=== PATIENT | female | born 1950 | race Caucasian/White ===

== ENCOUNTER 2024-05-29 23:20 | Outpatient (REF) | payer MEDICARE, MEDICAID, SELFPAY ==
[2024-05-29 23:39] LABS: Basophils Absolute Auto 0.1 10^3/uL (0.0-0.1); Eosinophils Absolute Auto 0.2 10^3/uL (0.0-0.7); Eosinophils Percent Auto 2.6 % (0.9-7.0); Hematocrit 41.9 % (36.0-48.0); Hemoglobin 12.6 g/dL (12.0-16.0); Immature Granulocytes Abs Auto 0.07 10^3/uL (0.00-0.03); Immature Granulocytes Pct Auto 1.1 % (0.0-0.5); Lymphocytes Absolute Auto 1.4 10^3/uL (1.2-3.8); Lymphocytes Percent Auto 22.3 % (20.5-60.0); Mean Corpuscular HGB Conc 30.1 g/dL (29.9-35.2); Mean Corpuscular Hemoglobin 32.1 pg (26.7-34.0); Mean Corpuscular Volume 106.6 fL (81.0-99.0); Mean Platelet Volume 12.8 fL (9.5-13.5); Monocytes Absolute Auto 0.7 10^3/uL (0.3-0.8); Monocytes Percent Auto 10.7 % (1.7-12.0); Neutrophils Absolute Auto 3.8 10^3/uL (1.4-6.5); Neutrophils Percent Auto 62.3 % (43.0-75.0); Platelet Count 134 10^3/uL (150-450); White Blood Count 6.1 10^3/uL (4.0-11.0)
[2024-05-29 23:54] LABS: Anion Gap 10.8; BUN Creatinine Ratio 7.9; Calcium 8.8 mg/dL (8.5-10.1); Carbon Dioxide 28.3 mmol/L (21.0-32.0); Chloride 103 mmol/L (98-107); Estimated GFR (African America 7 (>=60 mL/min/1.73m^2); Estimated GFR (Non-African Ame 6 (>=60 mL/min/1.73m^2); Glucose 195 mg/dL (74-106); Potassium 4.1 mmol/L (3.5-5.1); Sodium 138 mmol/L (136-145)
[2024-05-30] LABS: Red Blood Count 3.93 10^6/uL (4.20-5.40)
== END 2024-05-29 23:21 | disposition home or self-care (01) ==
LOC: LAB 23:20
PROVIDERS: PCP Family Medicine; Visit Provider Student in an Organized Health Care Education/Training Program
DX: R53.83 Other fatigue (principal); I50.9 Heart failure, unspecified
CPT/HCPCS: 36415; 80048; 83880; 85025

== ENCOUNTER 2025-01-21 05:40 | Outpatient (REF) | payer MEDICARE, MEDICAID, SELFPAY ==
--- OUTSIDE RECORDS SUMMARY | 2025-01-21 05:47 | XMS_ITS | CCD ---
Author Organization [facility] Inform ion Partnership [facility] Care Team Providers Care Certified Nursing Attendant Name Role Phone ITZEL, DR KARIN Farris Attending Unavailable ITZEL, DR KARIN Farris Consulting Unavailable ITZEL, DR KARIN Farris Admitting Unavailable ASHA, DR FAULKNER Primary Care Unavailable MD Jaswinder Lemus Attending Provider 1( [phone] [facility], Services Primary Care Provider MD Debora Griffin Emergency Provider [phone] DO Sung Crocker Emergency Provider DO Tarik Cutler Emergency Provider Unavai Sung Perez Attending Unavailable Sung Crocker Admitting Unavailable [facility] Primary Care Unavaila ble Tarik Cutler Attending Unavailable Tarik Cutler Admitting Unavailable [facility], Services Primary Care Unavaila ble Debora Griffin Attending Unavailable Debora Griffin Admitting Unavailable [facility], Services Primary Care Unavaila ble No Pcp, No Pcp Primary Care Provider Unavailabl e DONA KINCAID Admitting Unavailable DONA KINCAID Attending Unavailable LEONOR TO Referring Unavailable LUCIE BARRY Primary Care Unavailable ARVIND GARCIA Consulting Unavailable JOSEPH PLEITEZ Admitting Unavailable JOSEPH PLEITEZ Attending Unavailable DEBORA GE Referring Unavailab le NO PCP, NO PCP Primary Care Unavailable [place] Consulting Unavailable DION ANTUNEZ Consulting Unavailable Lucie Barry MD Primary Care Provider Manoj LORENZO, Karine Payne Unavailable Lucie Barry MD Primary Care Provider [phone] Lucie Barry MD Primary Care Provider [phone] Gregorio FERNANDEZ Deena Primary Care Provider PHYSICIAN, UNKNOWN Referring Unavailable [facility] Primary Care Unavailable FRAN HWANG Referring Unavailable [facility] Primary Care Unavailable ANGELES GARBERA Referring Unavailable [facility] Primary Care Unavailable YESIKA DUFFY Referring Unavailable NO PCP, NO PCP Primary Care Unavailable ASHA, RUGEN M Referring Unavailable ASHA, RUGEN M Primary Care Unavailable ALONSO ZHU Referring Unavailable ASHA, RUGEN M Primary Care Unavailable NORIS VERGARA Referring Unavailable ANAHEIM, DEENA Primary Care Unavailable COREEN HOUSER Admitting Unavailable OC VERGARAA L Referring Unavailable PERKINS, DEENA Primary Care Unavailable ANGELES GARBERA Attending Unavailable [facility] Consulting Unavailable DEBORA COBB Consulting Unavailable TIFFANIE OROSCO Consulting Unavailable JANI FUNK Consulting Unavailable [facility] ulting Unavailable MASTERSONMIKE Consulting Unavailable ASHA, RUGEN M Referring Unavailable ASHA, RUGEN M Primary Care Unavailable ASHA, RUGEN M Referring Unavailable ASHA, RUGEN M Primary Care Unavailable ASHA, RUGEN M Primary Care Unavailable WILL PEREZ Attending Unavailable WILL PEREZ Attending Unavailable WILL PEREZ Referring Unavailable ASHA, RUGEN M Primary Care Unavailable OC VERGARAA L Attending Unavailable [facility] Primary Care Unavailable [facility] Primary Care Unavailable HUNTER BUCK Attending Unavailable MASTERSON, JACQUES Referring Unavailable [facility] Primary Care Unavailable MASTERSON, JACQUES Referring Unavailable [facility] Primary Care Unavailable MASTERSON, JACQUES Referring Unavailable [facility] Primary Care Unavailable DEBORA GE Attending Unavaila ble NO PCP, NO PCP Primary Care Unavailable OUMEDDOUR, RAZIK Z Attending Unavailable OUMEDDOUR, RAZIK Z Referring Unavailable ASHA, RUGEN M Primary Care Unavailable OUMEDDOUR, RAZIK Z Attending Unavailable OUMEDDOUR, RAZIK Z Referring Unavailable ASHA, RUGEN M Primary Care Unavailable ASHA, RUGEN M Primary Care Unavailable OUMEDDOUR, RAZIK Z Attending Unavailable MSATERSON, JACQUES Referring Unavailable ASHA, RUGEN M Primary Care Unavailable ASHA, RUGEN M Primary Care Unavailable ALONSO ZHU Attending Unavailable Allergies Allergy Classification Reported Allergen(s) Allergy Type Date of Onset Reaction(s) Facility (7 sources) Amoxicillin; Translations: [AMOXICILLIN] Drug Allergy 06-08-2018 Rash [facility] Repository (7 sources) Doxycycline; Translations: [DOXYCYCLINE] Drug Allergy 06-08-2018 Rash [facility] Repository (4 sources) NSAIDS (Non-Steroidal Anti-Inflamma; Translations: [NSAIDS (Non-Steroidal Anti-Inflamma] Allergy to substance 01-14-[address] [facility] (1 source) Amoxicillin Drug Allergy 02-24-2024 [facility]ository (1 source) Doxycycline Drug Allergy 02-24-2024 [facility]ository (7 sources) Amoxicillin Drug Allergy 10-27-2022 [facility] (7 sources) Doxycycline Drug Allergy 10-27-2022 [facility] Medications Current Medications Medication Drug Class(es) Dates Sig (Normalized) Sig (Original) acetaminophen 325 mg oral tablet (13 sources) Start: 08-08-2024 take 1 tablet by mouth every six hours as needed for pain and pain and pain and headache and fever 650 mg, oral, Every 6 hours PRN, mild pain - pain scale 1-3, moderate pain - pain scale 4-6, severe pain - pain scale 7-10, headaches, temperature greater than 38 C, Starting on 08/08/24 at 0019 Start: 04-21-2024 End: 04-23-2024 take 1 tablet by mouth every six hours as needed for pain and headache and fever 500 mg, oral, Every 6 hours PRN, mild pain - pain scale 1-3, headaches, temperature greater than 38 C, Starting on 04/21/24 at 0235, [Warning: Total Acetaminophen not to exceed more than 4 grams (4000 mg) in 24 hours] Start: 09-01-2023 take 1 tablet by alesia th every six hours as needed for headache and fever and pain 650 mg, oral, Every 6 hours PRN, headaches, temperature greater than 38 C, mild pain - pain scale 1-3, Starting on Emilie 09/01/23 at 1516 take 1 tablet by alesia th every four hours as needed for pain acetaminophen (TYLENOL) 500 mg tablet Take 1 tablet (500 mg total) by mouth every 4 (four) hours as needed for pain. Suspended take 1 tablet by alesia th every six hours as needed for pain acetaminophen (TYLENOL) 500 mg tablet Take 1 tablet (500 mg total) by mouth every 6 (six) hours as needed for pain. 0 Active 20 ml albumin human, residential 250 mg/ml injection (1 source) Human Serum Albumin Start: 08-08-2024 25 g, intravenous, Once, On Tue08/08/24 at 1730, For 1 dose, Hemodialysis, Do not exceed 1 mL/minute in patients with normal plasma volume; 2 to 3 mL/minute in patients with hypoproteinemia For BUMINATE, administer using a 15 micron or smaller filter. A filter is NOT required for administration by other brands., Indication: Symptomatic Hypotension During Hemodialysis albuterol 0.83 mg/ml inhalation solution (11 sources) beta2-Adrenerg ic Agonist Start: 09-01-2023 take 2.5 mg by inhalation every four hours as needed for dyspnea and wheezing take 2 puff(s) by in halation every six hours as needed for wheezing albuterol (PROVENTIL HFA;VENTOLIN HFA) 90 mcg/actuation inhaler Inhale 2 puffs every 6 (six) hours as needed for wheezing. Suspended End: 04-23-2024 take 2 puff(s) by inhalation every four hours as needed for wheezing albuterol (PROVENTIL HFA;VENTOLIN HFA) 90 mcg/actuation inhaler Inhale 2 puffs every 4 (four) hours as needed for wheezing or shortness of breath. 04/23/2024 Discontinued (Stop Taking at Discharge) End: 09-01-2023 take 3 mL by inhalation every six hours as needed for wheezing albuterol (ACCUNEB) 0.63 mg/3 mL nebulizer solution Inhale 3 mL (0.63 mg total) by nebulization every 6 (six) hours as needed for wheezing. 09/01/2023 Discontinued (Therapy completed) albuterol 0.833 mg/ml / ipratropium bromide 0.167 mg/ml inhalation solution (1 source) Anticholinergic, beta2-Adrenergic Agonist Start: 08-08-2024 take 3 mL by inhalation every six hours as needed for wheezing and dyspnea B complex-vitamin C-folic acid (DIALYVITE) 100-1 mg per tablet 1 tablet (2 sources) Start: 08-09-2024 take 1 tablet by mouth once daily 1 tablet, oral, Daily, First dose on Tue08/09/24 at 1030 Start: 09-02-2023 take 1 tablet by mouth once da arlene 1 tablet, oral, Daily, First dose on Tue09/02/23 at 0900 calcium carbonate 500 mg chewable tablet (1 source) Start: 08-08-2024 200 mg, oral, 3 times daily PRN, heartburn, indigestion, Starting on Tue08/08/24 at 0019, Ordered as elemental calcium. 200 mg elemental calcium = 500 mg calcium carbonate calcium citrate 1500 mg / cholecalciferol 250 unt oral tablet (3 sources) Vitamin D Start: 06-12-2018 take 1 tablet by mouth twice daily Calcium Citrate-Vitamin D3 (Citracal With Vitamin D Maximum) 315-250 mg-unit tablet Active 1 TAB PO Twice daily 60 June 12, 2018 1:00am 100 ml calcium gluconate 20 mg/ml injection (1 source) Start: 08-08-2024 take 4-4.3 mg intravenously every hour as needed 2,000 mg, intravenous, at 50 mL/hr, Administer over 2 Hours, As needed, ionized calcium 4 to 4.3 mg/dL, Starting on Tue08/08/24 at 0018, IV Administration of calcium via a central or deep vein preferred. Avoid administration in small hand veins VESICANT (RED) calcium gluconate 3,000 mg in sodium chloride 0.9 % 100 mL IVPB (1 source) Start: 08-08-2024 take 3.5-3.9 mg intravenously every hour as needed 3,000 mg, intravenous, at 43.3 mL/hr, Administer over 3 Hours, As needed, ionized calcium 3.5 to 3.9 mg/dL, Starting on Tue08/08/24 at 0018, IV Administration of calcium via a central or deep vein preferred. Avoid administration in small hand veins VESICANT (RED) calcium gluconate 4,000 mg in sodium chloride 0.9 % 250 mL IVPB (1 source) Start: 08-08-2024 take 3.4 mg intravenously every hour as needed 4,000 mg, intravenous, at 72.5 mL/hr, Administer over 4 Hours, As needed, ionized calcium 3.4 mg/dL or less, Starting on Tue08/08/24 at 0018, IV administration of calcium via a central or deep vein is preferred. Avoid administration in small hand veins. VESICANT (RED) 0.5 ml darbepoetin axel 0.2 mg/ml prefilled syringe (1 source) Erythropoies is-stimulati ng Agent Start: 09-02-2023 inject 12 g by subcutaneous injection every week 100 mcg, subcutaneous, Weekly, First dose on Tue09/02/23 at 1430, Do not administer if the patient's hemoglobin is greater than 12 g/dl., Indications: ESRD on Dialysis, anemia, anemia due to renal failure docusate sodium 50 mg / sennosides, residential 8.6 mg oral tablet (10 sources) Start: 08-09-2024 take 2 tablets by mouth once daily 2 tablet, oral, Nightly, First dose on Tue08/09/24 at 2200 Start: 04-21-2024 End: 04-23-2024 take 1 tablet by mouth every twelve hours as needed for constipation 1 tablet, oral, Every 12 hours PRN, constipation, Starting on 04/21/24 at 0235 Start: 09-01-2023 take 1 tablet by alesia th twice daily 1 tablet, oral, 2 times daily, First dose on Tue09/01/23 at 2100 take 1 tablet by alesia th in the morning sennosides-docusate sodium (SENNA WITH DOCUSATE SODIUM) 8.6-50 mg Take 1 tablet by mouth in the morning and 1 tablet before bedtime. Suspended glucagon (rdna) 1 mg injection (2 sources) Antihypoglycemic Agent Start: 08-07-2024 1 mg, i ntramuscular, As needed, low blood sugar, blood glucose less than 70 mg/dL and unconscious or NPO without IV access., Starting on Tue08/07/24 at 2313, If conscious and not NPO, immediately follow with meal tray or high protein (7Grams) snack if tray not available. If NPO, initiate IV 5% Dextrose/Water at 100 mL/hr and contact prescriber for additional orders. If blood glucose is not greater than 70 mg/dL after initial treatment, repeat treatment. Start: 09-01-2023 1 mg, intramus cular, As needed, low blood sugar, blood glucose less than 70 mg/dL and unconscious or NPO without IV access., Starting on Emilie 09/01/23 at 1512, If conscious and not NPO, immediately follow with meal tray or high protein (7Grams) snack if tray not available. If NPO, initiate IV 5% Dextrose/Water at 100 mL/hr and contact prescriber for additional orders. If blood glucose is not greater than 70 mg/dL after initial treatment, repeat treatment. 50 ml glucose 500 mg/ml prefilled syringe (9 sources) Start: 08-07-2024 15 g, oral, As needed, low blood sugar, blood glucose less than 70 mg/dL, Starting on Tue08/07/24 at 2313, If patient conscious and taking PO. If blood glucose is not greater than 70 mg/dL after initial treatment, repeat treatment. Start: 08-07-2024 25 mL, intrave nous, As needed, low blood sugar, blood glucose less than 70 mg/dL and unconscious or NPO with IV access, Starting on Tue08/07/24 at 2313, Push over 1-3 minutes STAT. If conscious and not NPO, immediately follow with meal tray or high protein (7 grams) snack if tray not available. If NPO, initiate 5% dextrose in water at 100 mL/hr and contact prescriber for additional orders. If blood glucose is not greater than 70 mg/dL after initial treatment, repeat treatment. VESICANT (RED) Warning: HYPERTONIC solution. Start: 09-01-2023 take 70 mg intraveno usly every hour 100 mL/hr, intravenous, Continuous PRN, blood glucose less than 70 mg/dL, Starting on Emilie 09/01/23 at 1512, Use immediately following dextrose 50% or glucagon treatment for patients who are unconscious or NPO. Contact prescriber for additional orders. If blood glucose is not greater than 70 mg/dL after initial treatment, repeat treatment. Start: 09-01-2023 15 g, oral, As needed, low blood sugar, blood glucose less than 70 mg/dL, Starting on Emilie 09/01/23 at 1512, If patient conscious and taking PO. If blood glucose is not greater than 70 mg/dL after initial treatment, repeat treatment. Start: 09-01-2023 25 mL, intrave nous, As needed, low blood sugar, blood glucose less than 70 mg/dL and unconscious or NPO with IV access, Starting on Emilie 09/01/23 at 1512, Push over 1-3 minutes STAT. If conscious and not NPO, immediately follow with meal tray or high protein (7 grams) snack if tray not available. If NPO, initiate 5% dextrose in water at 100 mL/hr and contact prescriber for additional orders. If blood glucose is not greater than 70 mg/dL after initial treatment, repeat treatment. VESICANT (RED) Warning: HYPERTONIC solution. End: 09-01-2023 take 37.5 mL by mouth once dextrose 40 % gel Take 37.5 mL (15 g total) by mouth once. 09/01/2023 Discontinued (Therapy completed) 1 ml hydrALAZINE hydrochloride 20 mg/ml injection (2 sources) Arteriolar Vasodilator Start: 08-08-2024 take 10 mg intravenously every six hours as needed 10 mg, intravenous, Every 6 hours PRN, high blood pressure, Starting on 08/08/24 at 0453, For systolic blood pressure greater than 160 mmHg Look-alike/sound-alike medication - verify indication for use. Administer IV doses as a slow IV push; maximum rate: 5 mg/minute. Start: 04-21-2024 End: 04-23-2024 take 10 mg intravenously every four hours as needed 10 mg, intravenous, Every 4 hours PRN, high blood pressure, SBP > 180, Starting on 04/21/24 at 1717, Look-alike/sound-alike medication - verify indication for use. Administer IV doses as a slow IV push; maximum rate: 5 mg/minute. 3 ml insulin aspart, human 100 unt/ml pen injector (2 sources) Insulin Analog Start: 06-12-2018 Insulin Aspart U-100 (Novolog Flexpen U-) 100 unit/mL insulin pen Active 1 UNIT SUBCUT .tidac June 12, 2018 1:00am sliding scale no 2 Insulin Glargine (Lantus U-100 Insulin) 100 unit/mL Solution (2 sources) Start: 02-24-2024 inject 12 [IU] by subcutaneous injection once daily in the morning Insulin Glargine (Lantus U-100 Insulin) 100 unit/mL Solution Active 12 UNIT SUBCUT Every morning February 24, 2024 12:00am Start: 06-12-2018 End: 02-24-2024 inject 60 [IU] by subcutaneous injection once daily in the morning Insulin Glargine (Lantus U-100 Insulin) 100 unit/mL Solution Discontinued 60 UNIT SUBCUT Every morning 0 June 12, 2018 11:38am February 24, 2024 2:56pm 3 ml insulin lispro 100 unt/ml pen injector (6 sources) Insulin Analog Start: 08-09-2024 inject 400 mg by subcutaneous injection once daily, then inject 2 [IU] by subcutaneous injection 15 minutes after mealtime 1-4 Units, subcutaneous, Nightly, First dose on [facility] 08/09/24 at 2200, Bedtime hyperglycemia dosing. For blood glucose 201-250 mg/dL, give 1 unit. For blood glucose 251-300 mg/dL, give 2 units. For blood glucose 301-350 mg/dL, give 3 units. For blood glucose 351-400 mg/dL, give 4 units. Give even if NPO or meals skipped. Do NOT give more often than every 4 hours when NPO. Notify prescriber if blood glucose greater than 400 mg/dL. Look-alike/sound-alike medication - verify indication for use. Prime with 2 units of insulin prior to administration. Prandial/supplemental Insulin. Pre-filled pens stable 28 days at room temperature. Insulin lispro should be administered within 15 minutes before or immediately after a meal. Start: 08-09-2024 inject 400 mg by sub cutaneous injection three times daily at mealtime, then inject 2 [IU] by subcutaneous injection 15 minutes after mealtime 1-5 Units, subcutaneous, 3 times daily with meals, First dose on [facility] 08/09/24 at 1200, Daytime hyperglycemia dosing. For blood glucose 151-200 mg/dL, give 1 unit. For blood glucose 201-250 mg/dL, give 2 units. For blood glucose 251-300 mg/dL, give 3 units. For blood glucose 301-350 mg/dL, give 4 units. For blood glucose 351-400 mg/dL, give 5 units. Give even if NPO or meals skipped. Do NOT give more often than every 4 hours when NPO. Notify prescriber if blood glucose greater than 400 mg/dL. Look-alike/sound-alike medication - verify indication for use. Prime with 2 units of insulin prior to administration. Prandial/supplemental Insulin. Pre-filled pens stable 28 days at room temperature. Insulin lispro should be administered within 15 minutes before or immediately after a meal. Start: 04-21-2024 End: 04-23-2024 inject 400 mg by subcutaneous injection once daily, then inject 2 [IU] by subcutaneous injection 15 minutes after mealtime 2-8 Units, subcutaneous, Nightly, First dose on 04/21/24 at 2200, Bedtime hyperglycemia dosing. For blood glucose 201-250 mg/dL, give 2 units. For blood glucose 251-300 mg/dL, give 4 units. For blood glucose 301-350 mg/dL, give 6 units. For blood glucose 351-400 mg/dL, give 8 units. Give even if NPO or meals skipped. Do NOT give more often then every 4 hours when NPO. Notify prescriber if blood glucose greater than 400 mg/dL. Look-alike/sound-alike medication - verify indication for use. Prime with 2 units of insulin prior to administration. Prandial/supplemental Insulin. Pre-filled pens stable 28 days at room temperature. Insulin lispro should be administered within 15 minutes before or immediately after a meal. Start: 04-21-2024 End: 04-23-2024 inject 400 mg by subcutaneous injection three times daily at mealtime, then inject 2 [IU] by subcutaneous injection 15 minutes after mealtime 2-10 Units, subcutaneous, 3 times daily with meals, First dose on 04/21/24 at 0800, Daytime hyperglycemia dosing. For blood glucose 151-200 mg/dL, give 2 units. For blood glucose 201-250 mg/dL, give 4 units. For blood glucose 251-300 mg/dL, give 6 units. For blood glucose 301-350 mg/dL, give 8 units. For blood glucose 351-400 mg/dL, give 10 units. Give even if NPO or meals skipped. Do NOT give more often then every 4 hours when NPO. Notify prescriber if blood glucose greater than 400 mg/dL. Look-alike/sound-alike medication - verify indication for use. Prime with 2 units of insulin prior to administration. Prandial/supplemental Insulin. Pre-filled pens stable 28 days at room temperature. Insulin lispro should be administered within 15 minutes before or immediately after a meal. Start: 09-01-2023 inject 400 mg by sub cutaneous injection once daily, then inject 2 [IU] by subcutaneous injection 15 minutes after mealtime 2-8 Units, subcutaneous, Nightly, First dose on Emilie 09/01/23 at 2200, Bedtime hyperglycemia dosing. For blood glucose 201-250 mg/dL, give 2 units. For blood glucose 251-300 mg/dL, give 4 units. For blood glucose 301-350 mg/dL, give 6 units. For blood glucose 351-400 mg/dL, give 8 units. Give even if NPO or meals skipped. Do NOT give more often then every 4 hours when NPO. Notify prescriber if blood glucose greater than 400 mg/dL. Look-alike/sound-alike medication - verify indication for use. Prime with 2 units of insulin prior to administration. Prandial/supplemental Insulin. Pre-filled pens stable 28 days at room temperature. Insulin lispro should be administered within 15 minutes before or immediately after a meal. Start: 09-01-2023 inject 400 mg by sub cutaneous injection three times daily at mealtime, then inject 2 [IU] by subcutaneous injection 15 minutes after mealtime 2-10 Units, subcutaneous, 3 times daily with meals, First dose on Emilie 09/01/23 at 1700, Daytime hyperglycemia dosing. For blood glucose 151-200 mg/dL, give 2 units. For blood glucose 201-250 mg/dL, give 4 units. For blood glucose 251-300 mg/dL, give 6 units. For blood glucose 301-350 mg/dL, give 8 units. For blood glucose 351-400 mg/dL, give 10 units. Give even if NPO or meals skipped. Do NOT give more often then every 4 hours when NPO. Notify prescriber if blood glucose greater than 400 mg/dL. Look-alike/sound-alike medication - verify indication for use. Prime with 2 units of insulin prior to administration. Prandial/supplemental Insulin. Pre-filled pens stable 28 days at room temperature. Insulin lispro should be administered within 15 minutes before or immediately after a meal. levothyroxine sodium 0.2 mg oral tablet (18 sources) l-Thyroxine Start: 04-24-2024 200 mcg, oral, Daily, First dose on Tue08/08/24 at 0600, Look-alike/sound-alike medication. Verify indication for use Administer on empty stomach at least ONE hour before or TWO hours after food Enteral Feeding: For 7 days or less of tube feeding- do NOT hold tube feedings, after 7 days- hold tube feedings ONE hour before and ONE hour after administration DOES NOT APPLY TO NEONATES Monitor thyroid function tests weekly Start: 04-23-2024 End: 04-23-2024 200 mcg, oral, Daily, First dose (after last modification) on Tue04/23/24 at 0600, Look-alike/sound-alike medication. Verify indication for use Administer on empty stomach at least ONE hour before or TWO hours after food Enteral Feeding: For 7 days or less of tube feeding- do NOT hold tube feedings, after 7 days- hold tube feedings ONE hour before and ONE hour after administration DOES NOT APPLY TO NEONATES Monitor thyroid function tests weekly Start: 04-21-2024 End: 04-22-2024 188 mcg, oral, Daily, First dose on Tue04/21/24 at 0600, Look-alike/sound-alike medication. Verify indication for use Administer on empty stomach at least ONE hour before or TWO hours after food Enteral Feeding: For 7 days or less of tube feeding- do NOT hold tube feedings, after 7 days- hold tube feedings ONE hour before and ONE hour after administration DOES NOT APPLY TO NEONATES Monitor thyroid function tests weekly Start: 09-02-2023 188 mcg, oral, Daily, First dose on Tue09/02/23 at 0600, Look-alike/sound-alike medication. Verify indication for use Administer on empty stomach at least ONE hour before or TWO hours after food Enteral Feeding: For 7 days or less of tube feeding- do NOT hold tube feedings, after 7 days- hold tube feedings ONE hour before and ONE hour after administration DOES NOT APPLY TO NEONATES Monitor thyroid function tests weekly Start: 06-08-2018 take 200 ug by mouth once daily in the morning Levothyroxine Active 200 MCG PO Every morning June 08, 2018 1:00am End: 04-23-2024 take 188 ug by mouth in the morning levothyroxine sodium (LEVOTHYROXINE ORAL ) Take 188 mcg by mouth in the morning. 04/23/2024 Discontinued (Stop Taking at Discharge) take 188 ug by mouth in the morning levothyroxine sodium (LEVOTHYROXINE ORAL ) Take 188 mcg by mouth in the morning. Suspended take 188 ug by mouth in the morning levothyroxine sodium (LEVOTHYROXINE ORAL ) Take 188 mcg by mouth in the morning. levothyroxine (S YNTHROID, LEVOTHROID) 125 MCG tablet Take 150 mcg by mouth in the morning. 0 Active 50 ml magnesium sulfate 40 mg/ml injection (2 sources) Start: 08-08-2024 2,000 mg, intr avenous, at 25 mL/hr, Administer over 120 Minutes, As needed, Magnesium level 1.7 to 1.9 mg/dL, or Ionized Magnesium level 0.45 to 0.5 mmol/L., Starting on Tue08/08/24 at 0017, Recheck magnesium level 4 hours after infusion complete. With each magnesium result continue the replacement orders as needed. Start: 08-08-2024 4,000 mg, intr avenous, at 25 mL/hr, Administer over 240 Minutes, As needed, Magnesium level 1.6 mg/dL or less, or Ionized Magnesium level 0.44 mmol/L or less, Starting on Tue08/08/24 at 0017, Recheck magnesium level 4 hours after infusion complete. With each magnesium result continue the replacement orders as needed. melatonin 5 mg oral tablet (1 source) Start: 08-08-2024 take 5 mg by mouth once daily as needed for sleep 5 mg, oral, Nightly PRN, sleep, Starting on Tue08/08/24 at 0019 midodrine hydrochloride 10 mg oral tablet (13 sources) alpha-Adrenergi c Agonist Start: 02-24-2024 take 10 mg by mouth once daily Midodrine Active 10 MG PO Daily February 24, 2024 12:00am Start: 09-02-2023 End: 09-02-2023 take 5 mg by mouth once 5 mg, oral, Once, On 09/01 at 1115, For 1 dose, During hemodialysis Look-alike/sound-alike medication - verify indication for use. Start: 09-02-2023 End: 04-23-2024 take 5 mg by mouth once daily 5 mg, oral, User Specified (Once per day on Tuesday), First dose (after last modification) on Tue09/03/23 at 0900, Hemodialysis, Take once on HD days Hold for SBP >110 Look-alike/sound-alike medication - verify indication for use. take 2 tablets by [facility] once daily in the morning midodrine (PROAMATINE) 10 mg tablet Take 2 tablets (20 mg total) by mouth every morning. Tuesday, Tuesday, Tuesday for hypotension with dialysis. Suspended midodrine (PROAM ATINE) 5 mg tablet Take 1 tablet (5 mg total) by mouth. One tablet, one time daily, on days , , and Tue. Hold if SMP is greater than 110 0 Active nystatin 100 unt/mg topical powder (1 source) Polyene Antifungal Start: 08-08-2024 1 Application, topic al, 2 times daily, First dose on Tue08/08/24 at 0915, Apply to underneath left breast. Look-alike/sound-alike medication - verify indication for use. pantoprazole 40 mg delayed release oral tablet (3 sources) Proton Pump Inhibitor Start: 08-10-2024 40 mg, oral, Every m orning before breakfast, First dose on Tue08/10/24 at 0815, Look-alike/sound-alike medication - verify indication for use. If patient is receiving enteral feeding, consider alternative PPI or continue IV pantoprazole until the delayed-release tablet can be taken orally, Indication: Acute Upper GI Bleed/Positive Stool Occult Blood Start: 08-07-2024 End: 08-10-2024 take 40 mg intravenously every twelve hours 40 mg, intravenous, Every 12 hours, First dose on Tue08/07/24 at 2345, Look-alike/sound-alike medication - verify indication for use., Indication: Upper GI bleed Start: 09-02-2023 40 mg, oral, E very morning before breakfast, First dose on Tue09/02/23 at 0700, Look-alike/sound-alike medication - verify indication for use. If patient is receiving enteral feeding, consider alternative PPI or continue IV pantoprazole until the delayed-release tablet can be taken orally, Indication: GERD Potassium Chloride (1 source) Start: 08-08-2024 potassium chloride (K-TAB,KLOR-CON) CR tablet 20-40 mEq prochlorperazine 5 mg/ml injectable solution (2 sources) Phenothiazine Start: 08-10-2024 take 5 mg intravenously every six hours as needed for nausea and vomiting 5 mg, intravenous, Every 6 hours PRN, nausea, vomiting, Starting on Tue08/10/24 at 1037, When administered via IV Push, do not exceed 5 mg per minute Start: 04-21-2024 End: 04-23-2024 take 1 tablet by mouth every six hours as needed for nausea and vomiting prochlorperazine (COMPAZINE) tablet 5 mg sertraline 100 mg oral tablet (12 sources) Serotonin Reuptake Inhibitor Start: 08-09-2024 take 100 mg by mouth once daily 100 mg, oral, Daily, First dose on Tue08/09/24 at 1015, Look-alike/sound-alike medication - verify indication for use. Start: 02-24-2024 take 200 mg by mouth once josh y Sertraline Active 200 MG PO Daily February 24, 2024 12:00am take 2 tablets by mo [facility] in the morning sertraline (ZOLOFT) 100 mg tablet Take 2 tablets (200 mg total) by mouth in the morning. Suspended 125 ml sodium chloride 9 mg/ ml prefilled syringe (15 sources) Start: 08-07-2024 3 mL, intraven ous, Every 12 hours scheduled, First dose on Tue08/07/24 at 2315 Start: 08-07-2024 3 mL, intraven ous, As needed, line care, before and after each intermittent use, Starting on Tue08/07/24 at 2313 Start: 08-07-2024 take 25 mL intraveno usly every hour as needed 25 mL, intravenous, at 100 mL/hr, Administer over 15 Minutes, As needed, line care, line care after IVPB administration, Starting on Tue08/07/24 at 2313 Start: 04-21-2024 End: 04-23-2024 3 mL, intravenous, Every 12 hours scheduled, First dose on Tue04/21/24 at 0245 Start: 04-21-2024 End: 04-23-2024 3 mL, intravenous, As needed , line care, before and after each intermittent use, Starting on Tue04/21/24 at 0235 Start: 09-02-2023 End: 09-02-2023 300 mL, intravenous, at 1,20 0 mL/hr, Administer over 15 Minutes, Once in dialysis, On Tue09/02/23 at 0830, For 1 dose, Hemodialysis, as priming solution for hemodialysis tubing. Start: 09-01-2023 3 mL, intraven ous, Every 12 hours scheduled, First dose on Emilie 09/01/23 at 2100 Start: 09-01-2023 3 mL, intraven ous, As needed, line care, before and after each intermittent use, Starting on Tue09/01/23 at 1512 Start: 09-01-2023 End: 09-03-2023 take 20 mL intravenously every hour as needed 20 mL/hr, intravenous, Continuous PRN, per policy for blood product transfusion, Starting on Tue09/02/23 at 2222, For 24 hours, Initiate prior to blood product transfusion. Continue before and after each blood product transfusion. Discontinue upon completion of blood product transfusion(s). Start: 09-01-2023 take 25 mL intraveno usly every hour as needed 25 mL, intravenous, at 100 mL/hr, Administer over 15 Minutes, As needed, line care, line care after IVPB administration, Starting on Emilie 09/01/23 at 1512 End: 09-01-2023 take 2 spray(s) nasal route twice daily sodium chloride (OCEAN) 0.65 % nasal spray Administer 2 sprays into each nostril 2 (two) times a day. 09/01/2023 Discontinued (Therapy completed) sucroferric oxyhydroxide 500 mg chewable tablet (1 source) Start: 02-24-2024 take 1 tablet by mouth three times daily Sucroferric Oxyhydroxide (Velphoro) 500 mg tablet,chewable Active 500 MG PO Three times daily February 24, 2024 12:00am Tenapanor (1 source) Start: 02-24-2024 take 1 tablet by mouth once daily Tenapanor (Xphozah) 20 mg tablet Active 20 MG PO Daily February 24, 2024 12:00am Completed/Discontinued Medications Medication Drug Class(es) Dates Sig (Normalized) Sig (Original) amLODIPine 10 mg oral tablet (10 sources) Dihydropyridine Calcium Channel Coleman Start: 06-08-2018 End: 02-24-2024 take 10 mg by mouth once daily Amlodipine Discontinued 10 MG PO Daily June 08, 2018 1:00am February 24, 2024 2:55pm [facility] 1 [facility] amLOD[facility]ine (NORVASC) 5 mg tablet Take 1 tablet (5 mg total) by mouth in the morning. Suspended aspirin 81 mg delayed release oral tablet (4 sources) Platelet Aggregation Inhibitor, Nonsteroidal Anti-inflammatory Drug Start: 04-23-2024 take 1 tablet by mouth in the morning aspirin 81 mg Take 1 tablet (81 mg total) by mouth in the morning. 30 tablet 04/23/2024 Suspended atorvastatin 40 mg oral tablet (17 sources) HMG-CoA Reductase Inhibitor Start: 04-21-2024 End: 04-23-2024 take 80 mg by mouth once daily 80 mg, oral, Daily, First dose on 04/21/24 at 0900, Look-alike/soun d-alike medication - verify indication for use. Start: 02-24-2024 take 80 mg by mouth once daily Atorvastatin Active 80 MG PO Daily February 24, 2024 12:00am Start: 09-02-2023 take 80 mg by mouth once daily 80 mg, oral, Daily, First dose on Tue09/02/23 at 0900, Look-alike/sound-alike medication - verify indication for use. Start: 10-25-2022 End: 09-01-2023 take 0.5 tablet by mouth in the morning atorvastatin (LIPITOR) 80 mg tablet Take 0.5 tablets (40 mg total) by mouth in the morning. 10/25/2022 09/01/2023 Discontinued (Duplicate Listing) take 2 tablets by [facility] in the morning atorvastatin (LIPITOR) 40 mg tablet Take 2 tablets (80 mg total) by mouth in the morning. Suspended bisacodyl 10 mg rectal suppository (4 sources) Stimulant Laxative End: 09-01-2023 bisacodyL (DULCOLAX) 10 mg suppository Insert 1 suppository (10 mg total) into the rectum as needed for constipation. 09/01/2023 Discontinued (Therapy completed) bumetanide 1 mg oral tablet (15 sources) Loop Diuretic Start: 04-21-2024 End: 04-23-2024 take 0.5 mg by mouth once daily 0.5 mg, oral, Daily, First dose on 04/21/24 at 0900 Start: 09-03-2023 take 1 tablet by alesia once daily bumetanide (BUMEX) 0.5 mg tablet Take 1 tablet (0.5 mg total) by mouth daily. 30 tablet 09/03/2023 Suspended Start: 09-02-2023 take 0.5 mg by mouth once josh y 0.5 mg, oral, Daily, First dose on Tue09/02/23 at 0900 Start: 07-18-2019 take 2 tablets by mo [facility] twice daily bumetanide (BUMEX) 0.5 mg tablet Take 2 tablets (1 mg total) by mouth 2 (two) times a day. 07/18/2019 Suspended carvedilol 6.25 mg oral tablet (19 sources) alpha-Adrenergic Coleman, beta-Adrenergic Coleman Start: 04-22-2024 End: 04-23-2024 take 1 tablet by mouth once daily at bedtime carvediloL (COREG) 6.25 mg tablet Take 1 tablet (6.25 mg total) by mouth once daily at bedtime. 60 tablet 04/23/2024 Start: 10-15-2022 End: 04-23-2024 take 3.125 mg by mouth at bedtime 3.125 mg, oral, Bedtime, First dose on Tue09/01/23 at 2200, Give with meal or snack. Look-alike/sound-alike medication - verify indication for use. End: 09-01-2023 take 1 tablet by mouth twice daily at mealtime carvediloL (COREG) 6.25 mg tablet Take 6.25 mg by mouth 2 (two) times a day with meals. 09/01/2023 Discontinued (Duplicate Listing) cetirizine hydrochloride 10 mg oral tablet (7 sources) Histamine-1 Receptor Antagonist take 1 tablet by mouth in the morning cetirizine (ZyrTEC) 10 mg tablet Take 1 tablet (10 mg total) by mouth in the morning. Suspended cyclobenzaprine hydrochloride 5 mg oral tablet (4 sources) Muscle Relaxant End: take 2 tablets by mouth three times daily as needed for muscle spasms cyclobenzaprine (FLEXERIL) 5 mg tablet Take 2 tablets (10 mg total) by mouth 3 (three) times a day as needed for muscle spasms. 09/01/2023 Discontinued (Therapy completed) docusate sodium 100 mg oral capsule (12 sources) Start: End: take 100 mg by mouth twice daily 100 mg, oral, 2 times daily, First dose on 04/21/24 at 0900, Look-alike/sound-alike medication - verify indication for use. dulaglutide (TRULICITY) 3 mg/0.5 mL pen injector (2 sources) dulaglutide (TRULICITY) 3 mg/0.5 mL pen injector Indications: type 2 diabetes mellitus Inject 0.5 mL under the skin once a week Indications: type 2 diabetes mellitus. Every Tuesday Suspended dulaglutide (BETH LICITY) 3 mg/0.5 mL pen injector Indications: type 2 diabetes mellitus Inject 0.5 mL under the skin once a week Indications: type 2 diabetes mellitus. Every Tuesday ergocalciferol 1.25 mg oral capsule (10 sources) Provitamin D2 Compound take 1 capsule by mouth in the morning, then take 1 capsule by mouth once daily ergocalciferol (DRISDOL) 1,250 mcg (50,000 unit) capsule Take 1 capsule (50,000 Units total) by mouth in the morning. Give 1 capsule by mouth one time daily starting on the and ending on the every month.. Suspended 14 actuat fluticasone furoate 0.1 mg/actuat / vilanterol 0.025 mg/actuat dry powder inhaler (2 sources) Corticosteroid, beta2-Adrenergic Agonist take 1 puff(s) by inhalation in the morning fluticasone furoate-vilanteroL (BREO ELLIPTA) 100-25 mcg/dose blister with device Indications: bronchospasm prevention with COPD Inhale 1 puff in the morning. Indications: bronchospasm prevention with COPD. Suspended 12 hr guaiFENesin 600 mg extended release oral tablet (9 sources) Start: End: take 1 tablet by mouth every twelve hours as needed Start: 09-01-2023 take 1 tablet by alesia th every twelve hours as needed take 1 tablet by alesia th every twelve hours as needed guaiFENesin (MUCINEX) 600 mg tablet extended release 12hr Take 1 tablet (600 mg total) by mouth every 12 (twelve) hours as needed (congestion). Suspended 1 ml heparin sodium, porcine 5000 unt/ml injection (1 source) Unfractionated Heparin, Anti-coagulant Start: 04-22-2024 End: 04-23-2024 5,000 Units, subcutaneous, Every 8 hours scheduled, First dose on 04/22/24 at 0600, Notify prescriber if INR greater than 1.9, hemoglobin less than 10 mg/dL, aPTT greater than 40 seconds, and/or platelet count less than 100,000/mm Look-alike/sound-alike medication - verify indication for use. Observe for bleeding. hydroCHLOROthiazide 25 mg / lisinopril 20 mg oral tablet (3 sources) Thiazide Diuretic, Angiotensin Converting Enzyme Inhibitor Start: 06-08-2018 End: 06-12-2018 take 1 tablet by mouth once daily Lisinopril-Hydrochloroth iazide Discontinued 1 TAB PO Daily June 08, 2018 1:00am June 12, 2018 11:35am Insulin Aspart U-100 (Novolog Flexpen U-) 100 unit/mL insulin pen (1 source) Start: 06-12-2018 End: 02-24-2024 Insulin Aspart U-100 (Novolog Flexpen U-) 100 unit/mL insulin pen Discontinued 1 UNIT SUBCUT .tidac June 12, 2018 1:00am February 24, 2024 2:55pm sliding scale no 2 3 ml insulin glargine 100 unt/ml pen injector (14 sources) Insulin Analog Start: 04-21-2024 End: 04-23-2024 12 Units, subcutaneous, Daily, First dose on 04/21/24 at 0900, Look-alike/sound-alike medication - verify indication for use. Prime with 2 units of insulin prior to administration. Basal (long acting) insulin for subcutaneous administration only. Do not mix with any other insulin. Pre-filled pens stable 28 days at room temperature. Start: 06-26-2023 LANTUS SOLOSTA R U-100 INSULIN 100 unit/mL (3 mL) insulin pen Inject 12 Units under the skin in the morning. 06/26/2023 Suspended Start: 06-12-2018 inject 60 [IU] by reardon bcutaneous injection once daily in the morning Insulin Glargine (Lantus U-100 Insulin) 100 unit/mL Solution Active 60 UNIT SUBCUT Every morning 0 June 12, 2018 11:38am Start: 06-08-2018 End: 06-12-2018 inject 40 [IU] by subcutaneous injection twice daily Insulin Glargine (Lantus U-100 Insulin) 100 unit/mL Solution Discontinued 40 UNIT SUBCUT Twice daily June 08, 2018 1:00am June 12, 2018 11:38am insulin glargine-yfgn 100 unit/mL solution (4 sources) Start: 07-26-2022 End: 09-01-2023 insulin glargine-yfgn 100 unit/mL solution Inject 12 Units under the skin in the morning. 07/26/2022 09/01/2023 Discontinued (Duplicate Listing) Start: 07-26-2022 insulin glargi ne-yfgn 100 unit/mL solution Inject 12 Units under the skin in the morning. 0 07/26/2022 Active ipratropium/albuterol sulfat e (IPRATROPIUM-ALBUTEROL INHL) (4 sources) End: 09-01-2023 ipratropium/albuterol sulfat e (IPRATROPIUM-ALBUTEROL INHL) Inhale as needed. 09/01/2023 Discontinued (Therapy completed) ipratropium/albu terol sulfate (IPRATROPIUM-ALBUTEROL INHL) Inhale as needed. 0 Active 24 hr isosorbide mononitrate 30 mg extended release oral tablet (13 sources) Nitrate Vasodilator Start: 07-19-2019 End: 04-23-2024 take 1 tablet by mouth once daily isosorbide mononitrate (IMDUR) 30 mg 24 hr tablet Take 1 tablet (30 mg total) by mouth daily. 07/19/2019 Suspended levoFLOXacin 250 mg oral tablet (3 sources) Quinolone Antimicrobial Start: 06-12-2018 End: 02-24-2024 take 250 mg by mouth once daily Levofloxacin Discontinued 250 MG PO Daily June 12, 2018 1:00am February 24, 2024 2:55pm lisinopril 20 mg oral tablet (3 sources) Angiotensin Converting Enzyme Inhibitor Start: 06-12-2018 End: 02-24-2024 take 20 mg by mouth once daily Lisinopril Discontinued 20 MG PO Daily June 12, 2018 1:00am February 24, 2024 2:55pm loperamide hydrochloride 2 mg oral tablet (4 sources) Opioid Agonist End: 09-01-2023 take 1 tablet by mouth four times daily as needed for diarrhea loperamide (IMODIUM A-D) 2 mg tablet Take 1 tablet (2 mg total) by mouth 4 (four) times a day as needed for diarrhea. 09/01/2023 Discontinued (Therapy completed) loratadine 10 mg oral tablet (5 sources) Start: 04-21-2024 End: 04-23-2024 take 10 mg by mouth once daily 10 mg, oral, Daily, First dose on 04/21/24 at 0900, Look-alike/sound- alike medication - verify indication for use. End: 09-01-2023 loratadine (CLARITIN) 10 mg tablet Take 1 tablet (10 mg total) by mouth as needed. 09/01/2023 Discontinued (Therapy completed) losartan potassium 100 mg oral tablet (13 sources) Angiotensin 2 Receptor Colemna Start: 04-24-2024 take 1 tablet by mouth in the morning losartan (COZAAR) 100 mg tablet Take 1 tablet (100 mg total) by mouth in the morning. 30 tablet 04/24/2024 Suspended Start: 04-22-2024 End: 04-23-2024 take 100 mg by mouth once daily 100 mg, oral, Daily, First dose (after last modification) on 04/22/24 at 0900, Look-alike/sound-alike medication - verify indication for use. Start: 10-07-2022 End: 04-23-2024 take 50 mg by mouth once daily 50 mg, oral, Daily, First dose on 04/21/24 at 0900, Look-alike/sound-alike medication - verify indication for use. magnesium hydroxide 80 mg/ml oral suspension (2 sources) take 30 mL by mouth once daily as needed for constipation magnesium hydroxide 400 mg/5 mL suspension Take 30 mL by mouth nightly as needed (constipation). Suspended Multivitamin With Iron-Mineral (3 sources) Start: 06-12-2018 End: 02-24-2024 take 1 tablet by mouth once daily Multivitamin With Iron-Mineral Discontinued 1 TAB PO Daily June 12, 2018 1:00am February 24, 2024 2:55pm Start: 06-12-2018 take 1 tablet by alesia th once daily Multivitamin With Iron-Mineral Active 1 TAB PO Daily June 12, 2018 1:00am 2 ml ondansetron 2 mg/ml injection (7 sources) Serotonin-3 Receptor Antagonist Start: 08-09-2024 End: 08-10-2024 4 mg, intravenous, Once, On Tue08/10/24 at 1445, For 1 dose, Hemodialysis, Administer over 2-5 minutes. Start: 09-01-2023 take 1 tablet by alesia th every six hours as needed for nausea and vomiting 4 mg, oral, Every 6 hours PRN, nausea, vomiting, Starting on Emilie 09/01/23 at 1516, For 1 dose End: 09-01-2023 take 1 tablet by mouth every eight hours as needed for nausea and vomiting ondansetron (ZOFRAN) 4 mg tablet Take 1 tablet (4 mg total) by mouth every 8 (eight) hours as needed for nausea or vomiting. 09/01/2023 Discontinued (Therapy completed) perflutren lipid microspheres (DEFINITY) dilution injection 1.43 mg/10 mL (1 source) Start: 04-23-2024 End: 04-23-2024 2 mL, intravenous, Once in imaging, contrast, Starting on 04/23/24 at 0805, For 1 dose, Dilute 1.3 mL of Definity with 8.7 mL 0.9% NaCl in 10 mL syringe. Administer 2 mL perflutren (Definity) contrast if 2 contiguous segments of the LV are not well visualized. May repeat 2 mL dose until LV visualization is accomplished. Procedure total dose not to exceed 10 mL. polyethylene glycol 3350 42923 mg powder for oral solution (12 sources) Osmotic Laxative Start: 09-02-2023 End: 04-23-2024 17 g, oral, Daily, First dose on Tue04/21/24 at 0900, Look-alike/sound-al hilda medication - verify indication for use. Dissolve 1 packet (17 gm) in 8 ounces of water, juice, soda, coffee or tea. sevelamer carbonate 800 mg oral tablet (14 sources) Phosphate Binder Start: 08-08-2024 End: 08-09-2024 take 1 tablet by mouth twice daily at mealtime 800 mg, oral, 2 times daily with meals, First dose on Tue08/08/24 at 0800, Look-alike/sound-al hilda medication - verify indication for use Give with meals Administer other medications 1 hour before or 3 hours after Enteral Feeding: Lanthanum and sevelamer TABLETS are not recommended to be crushed and administered in feeding tube due to risk of clogging tube Alternative: sevelamer carbonate suspension/packets or calcium carbonate per tube Start: 02-24-2024 take 2400 mg by mout h three times daily Sevelamer Carbonate Active 2400 MG PO Three times daily February 24, 2024 12:00am Start: 09-01-2023 End: 04-23-2024 take 1 tablet by mouth twice daily at mealtime 800 mg, oral, 2 times daily with meals, First dose on 04/21/24 at 0800, Look-alike/sound-alike medication - verify indication for use Give with meals Administer other medications 1 hour before or 3 hours after Enteral Feeding: Lanthanum and sevelamer TABLETS are not recommended to be crushed and administered in feeding tube due to risk of clogging tube Alternative: sevelamer carbonate suspension/packets or calcium carbonate per tube simvastatin 20 mg oral tablet (3 sources) HMG-CoA Reductase Inhibitor Start: 06-08-2018 End: 02-24-2024 take 20 mg by mouth once daily at bedtime Simvastatin Discontinued 20 MG PO Daily at bedtime June 08, 2018 1:00am February 24, 2024 2:53pm SITagliptin 50 mg oral tablet (4 sources) Dipeptidyl Peptidase 4 Inhibitor End: 09-01-2023 take 1 tablet by mouth once daily SITagliptin (JANUVIA) 50 mg tablet Take 50 mg by mouth daily. 09/01/2023 Discontinued (Therapy completed) tenapanor (XPHOZAH) 20 mg tablet (2 sources) tenapanor (XPHOZ AH) 20 mg tablet Take by mouth. Suspended tenapanor (XPHOZ AH) 20 mg tablet Take by mouth. vitamin B vnzfkn-K-AI-zinc c it (DIALYVITE 800 WITH ZINC 15) 0.8-15 mg tablet (7 sources) take 1 tablet by mouth once daily in the morning vitamin B cdusgs-V-KF-zinc cit (DIALYVITE 800 WITH ZINC 15) 0.8-15 mg tablet Take 1 tablet by mouth every morning. Active take 1 tablet by alesia th once daily in the morning vitamin B zkvxjy-E-UG-zinc cit (DIALYVIT E 800 WITH ZINC 15) 0.8-15 mg tablet Take 1 tablet by mouth every morning. Suspended take 1 tablet by alesia th once daily in the morning vitamin B qoplws-K-FP-zinc cit (DIALYVIT E 800 WITH ZINC 15) 0.8-15 mg tablet Take 1 tablet by mouth every morning. Problems Active Problems Problem Classification Problem Date Documented Da te Episodic/Chronic Cardiac dysrhythmias (1 source) Cardiac arrhythmia, unspecified; Translations: [Cardiac arrhythmia, unspecified] Onset: 5 Chronic Cardiac dysrhythmias (1 source) Bradycardia, unspecified; Translations: [Bradycardia, unspecified] Onset: 5 Episodic Chronic kidney disease (20 sources) Chronic kidney disease, stage 4 (severe); Translations: [Chronic renal failure] Onset: 2 01-14-2024 Chronic Conditions associated with dizziness or vertigo (1 source) Dizziness Onset: 5 Episodic Congestive heart failure; nonhypertensive (8 sources) Chronic diastolic (congestive) heart failure; Translations: [Heart failure] Onset: 0 08-29-2020 Chronic Deficiency and other anemia (2 sources) Iron deficiency anemia secondary to blood loss (chronic); Translations: [IRON DEFIC ANEMIA SEC BLD LOSS CHRN] Onset: 2 Chronic Deficiency and other anemia (9 sources) Anemia of chronic disease; Translations: [Anemia in other chronic diseases classified elsewhere] Onset: 3 09-01-2023 Chronic Deficiency and other anemia (2 sources) Anemia, unspecified; Translations: [Anemia, unspecified] Onset: 4 Episodic Diabetes mellitus with complications (5 sources) Type 2 diabetes mellitus with hypoglycemia without coma; Translations: [Type 2 diabetes mellitus with diabetic chronic kidney disease] Onset: 2 Chronic Diabetes mellitus without complication (6 sources) Type 2 diabetes mellitus; Translations: [Type 2 diabetes mellitus without complications] Onset: 4 04-21-2024 Chronic Essential hypertension (9 sources) Essential hypertension; Translations: [Essential (primary) hypertension] Onset: 1 04-21-2024 Chronic Gastrointestinal hemorrhage (5 sources) Gastrointestinal hemorrhage; Translations: [Gastrointestinal hemorrhage, unspecified] Onset: 5 08-07-2024 Episodic Hypertension with complications and secondary hypertension (1 source) Hypertensive heart and chronic kidney disease with heart failure and stage 1 through stage 4 chronic kidney disease, or unspecified chronic kidney disease; Translations: [HTN HRT CKD W/HF STAGE 1-4/UNS CKD] Onset: 2 Chronic Nonspecific chest pain (9 sources) Chest pain; Translations: [Chest pain, unspecified] Onset: 4 01-14-2024 Episodic Other aftercare (1 source) Other group home (current) drug therapy; Translations: [OTH LONGTERM CURRENT DRUG THERAPY] Onset: 2 Episodic Other aftercare (1 source) jail (current) use of insulin; Translations: [CST CURRENT USE OF INSULIN] Onset: 2 Episodic Other endocrine disorders (7 sources) Hypoglycemia; Translations: [Hypoglycemia, unspecified] Onset: 2 03-01-2022 Chronic Other nutritional; endocrine; and metabolic disorders (8 sources) Severe obesity; Translations: [Class 3 severe obesity due to excess calories in adult] Onset: 1 04-21-2024 Chronic Other screening for suspected conditions (not mental disorders or infectious disease) (1 source) Other specified abnormal findings of blood chemistry; Translations: [Other specified abnormal findings of blood chemistry] Onset: 5 Episodic Residual codes; unclassified (1 source) Illness, unspecified; Translations: [Illness, unspecified] Onset: 5 Episodic Respiratory failure; insufficiency; arrest (adult) (1 source) Chronic respiratory failure with hypoxia; Translations: [CHRONIC RESPIRATORY FAIL W/HYPOXIA] Onset: 2 Chronic Skin and subcutaneous tissue infections (3 sources) Cellulitis of lower limb; Translations: [Cellulitis of unspecified part of limb] 06-09-2018 Episodic Substance-related disorders (1 source) Nicotine dependence, cigarettes, uncomplicated; Translations: [NICOTINE DEPEND CIGARETTES UNCOMP] Onset: 2 Chronic Thyroid disorders (10 sources) Hypothyroidism; Translations: [Hypothyroidism, unspecified] Onset: 2 04-21-2024 Chronic Unclassified (1 source) EMS Onset: 4 Unclassified (1 source) Abnormal Lab Onset: 4 Viral infection (1 source) COVID-19; Translations: [COVID-19] Onset: 2 Past or Other Problems Problem Classification Problem Date Documented Da te Episodic/Chronic Abdominal pain (1 source) Abdominal pain Onset: 12-06-2023 Episodic Acute and unspecified renal failure (8 sources) Acute kidney failure, unspecified; Translations: [Acute renal failure syndrome] Onset: 03-01-2022 03-01-2022 Episodic Deficiency and other anemia (6 sources) Anemia; Translations: [Anemia, unspecified] Onset: 09-01-2023 09-01-2023 Episodic Deficiency and other anemia (1 source) Other iron deficiency anemias; Translations: [Other iron deficiency anemias] Onset: 09-01-2023 Episodic Deficiency and other anemia (1 source) Iron deficiency anemia; Translations: [Other iron deficiency anemias] 09-03-2023 Episodic Fluid and electrolyte disorders (5 sources) Hyperkalemia; Translations: [Hyperkalemia] Onset: 09-01-2023 01-14-2024 Episodic Mood disorders (4 sources) Mood disorders Onset: 09-01-2023 Resolved: 04-21-2024 04-21-2024 Other gastrointestinal disorders (1 source) Constipation, unspecified; Translations: [Constipation, unspecified] Onset: 12-06-2023 Episodic Other gastrointestinal disorders (1 source) Constipation Onset: 12-06-2023 Episodic Other lower respiratory disease (2 sources) Shortness of breath; Translations: [Shortness of breath] Onset: 01-12-2024 Episodic Syncope (9 sources) Syncope; Translations: [Syncope and collapse] Onset: 02-24-2024 02-24-2024 Episodic Viral infection (7 sources) Disease caused by 2019-nCoV; Translations: [COVID-19] Onset: 03-01-2022 03-01-2022 Episodic Results Test Name Value Interpretation Reference Range Facility BLOOD UREA NITROGENon 2024 Urea nitrogen [Mass/Vol] 10 mg/dL Normal 5-27 [facility] Comment on above: Performed By: #### H H #### [facility] ([id number]) [address] [facility], [place] [address] Urea nitrogen [Mass/Vol] 37 mg/dL High 09-25 [facility] Comment on above: Performed By: #### H H #### [facility] ([id number]) [address] [facility], [place] [address] ALBUMINon 08-22-2024 Albumin [Mass/Vol] 3.5 g/dL Normal 3.2-5.3 [facility] Comment on above: Performed By: #### C BCA, FEPR, 2275-08, 2283-12, 2132-01 #### [facility] ([id number]) [address], [address] [place] [address] BLOOD UREA NITROGENon 2024 Urea nitrogen [Mass/Vol] 11 mg/dL Normal 09-25 [facility] Comment on above: Performed By: #### C BCA, FEPR, 2275-08, 2283-12, 2132-01 #### [facility] ([id number]) [address], [address] [place] [address] CALCIUMon 08-22-2024 Calcium [Mass/Vol] 8.2 mg/dL Low 8.5-10.5 [facility] Comment on above: Performed By: #### C BCA, FEPR, 4, 2283-12, 2132-01 #### [facility] ([id number]) [address], [address] [place] [address] POTASSIUMon 08-22-2024 Potassium [Moles/Vol] 3.0 mmol/L Low 3.5-5.0 [facility] Comment on above: Performed By: #### C BCA, FEPR, 2275-4, 2283-12, 2132-01 #### [facility] ([id number]) [address], [address] [place] [address] CBC AND AUTO DIFFon 08-16-19 25 ABSOLUTE BASOPHIL 0.1 X10E9/L Normal 0.0-0.2 [facility] Comment on above: Performed By: #### H H #### [facility] ([id number]) [address] [place] [address]666 ABSOLUTE NEUTROPHIL 4.5 X10E9/L Normal 1.5-6.6 [facility] Comment on above: Performed By: #### H H #### [facility] ([id number]) [address] [place] [address] 71393 Basophils/100 WBC (Bld) 1.0 % Normal [facility] Comment on above: Performed By: #### H H #### [facility] ([id number]) [address] [place] [address] 84272 Eosinophils (Bld) [#/Vol] 0.2 10*3/uL Normal 0.0-0.4 [facility] Comment on above: Performed By: #### H H #### [facility] ([id number]) [address] [place] [address] 14841 Eosinophils/100 WBC (Bld) 2.8 % Normal [facility] Comment on above: Performed By: #### H H #### [facility] ([id number]) [address] [place] [address] 63563 Erythrocyte distribution width (RBC) [Ratio] 22.4 % High 11.5-15.0 [facility] Comment on above: Performed By: #### H H #### [facility] ([id number]) [address] [place] [address] 36928 Hematocrit (Bld) [Volume fraction] 16.3 % Low 35-47 [facility] Comment on above: Performed By: #### H H #### [facility] ([id number]) [address] [place] [address] 68379 Hemoglobin (Bld) [Mass/Vol] 5.5 g/dL Critically low 11.7-15.5 [facility] Comment on above: Performed By: #### H H #### [facility] ([id number]) [address] [place] [address] 64856 Lymphocytes (Bld) [#/Vol] 1.1 10*3/uL Normal 1.0-3.5 [facility] Comment on above: Performed By: #### H H #### [facility] ([id number]) [address] [place] [address] 65099 Lymphocytes/100 WBC (Bld) 17.3 % Normal [facility] Comment on above: Performed By: #### H H #### [facility] ([id number]) [address] [place] [address] 44477 MCH (RBC) [Entitic mass] 33.8 pg Normal 27-34 [facility] Comment on above: Performed By: #### H H #### [facility] ([id number]) [address] [place] [address] 69754 MCHC (RBC) [Mass/Vol] 33.8 g/dL Normal 32-36 [facility] Comment on above: Performed By: #### H H #### [facility] ([id number]) [address] [place] [address] 57258 MCV (RBC) [Entitic vol] 100 fL Normal 80-100 [facility] Comment on above: Performed By: #### H H #### [facility] ([id number]) [address] [place] [address] 75902 Monocytes (Bld) [#/Vol] 0.3 10*3/uL Normal 0-0.9 [facility] Comment on above: Performed By: #### H H #### [facility] ([id number]) [address] [place] [address] 21659 Monocytes/100 WBC (Bld) 5.1 % Normal [facility] Comment on above: Performed By: #### H H #### [facility] ([id number]) [address] [place] [address] 35767 Neutrophils/100 WBC (Bld) 73.8 % Normal [facility] Comment on above: Performed By: #### H H #### [facility] ([id number]) [address] [place] [address] 58333 Platelet mean volume (Bld) [Entitic vol] 8.9 fL Normal 7-12 [facility] Comment on above: Performed By: #### H H #### [facility] ([id number]) [address] [place] [address] 06852 Platelets (Bld) [#/Vol] 142 10*3/uL Low 150-450 [facility] Comment on above: Performed By: #### H H #### [facility] ([id number]) [address] [place] [address] 42952 RBC COUNT 1.63 X10E12/L Low 3.80-5.20 [facility] Comment on above: Performed By: #### H H #### [facility] ([id number]) [address] [place] [address] 07408 WBC (Bld) [#/Vol] 6.1 10*3/uL Normal 4.0-11.0 [facility] Comment on above: Performed By: #### H H #### [facility] ([id number]) [address] [place] [address] 11455 COMPREHENSIVE METABOLIC PANE Juventino 08-15-2024 Albumin [Mass/Vol] 2.9 g/dL Low 3.2-5.3 [facility] Comment on above: Performed By: #### H H #### [facility] ([id number]) [address] [place] [address] 20020 ALP [Catalytic activity/Vol] 70 U/L Normal 39-130 [facility] Comment on above: Performed By: #### H H #### [facility] ([id number]) [address] [place] [address] 91919 ALT [Catalytic activity/Vol] 12 U/L Normal 0-31 [facility] Comment on above: Performed By: #### H H #### [facility] ([id number]) [address] [place] [address] 42716 Anion gap [Moles/Vol] 10 mmol/L Normal 5-15 [facility] Comment on above: Performed By: #### H H #### [facility] ([id number]) [address] [place] [address] 03089 AST [Catalytic activity/Vol] 13 U/L Normal 0-41 [facility] Comment on above: Performed By: #### H H #### [facility] ([id number]) [address] [place] [address] 61482 Bilirubin [Mass/Vol] 0.1 mg/dL Low 0.3-1.2 [facility] Comment on above: Performed By: #### H H #### [facility] ([id number]) [address] [place] [address] [place] [address] Calcium [Mass/Vol] 8.3 mg/dL Low 8.5-10.5 [facility] Comment on above: Performed By: #### H H #### [facility] ([id number]) [address] [place] [address] 13066 Chloride [Moles/Vol] 100 mmol/L Normal 98-109 [facility] Comment on above: Performed By: #### H H #### [facility] ([id number]) [address] [place] [address] 06477 CO2 [Moles/Vol] 26 mmol/L Normal 22-32 [facility] Comment on above: Performed By: #### H H #### [facility] ([id number]) [address] [place] [address] 97486 Creatinine [Mass/Vol] 2.52 mg/dL High 0.40-1.00 [facility] Comment on above: Result Comment: METH OD TRACEABLE TO IDMS STANDARD Performed By: #### H H #### [facility] ([id number]) [address] [place] [address] 20685 GFR/1.73 sq M.predicted among non-blacks MDRD (S/P/Bld) [Vol rate/Area] 20 mL/min/{1.73_m2} Low >59 [facility] Comment on above: Result Comment: Reported eGFR is based on the CKD-EPI 2021 equation that does not use a race coefficient. Performed By: #### H H #### [facility] ([id number]) [address] [place] [address] 00896 Glucose [Mass/Vol] 164 mg/dL High 65-99 [facility] Comment on above: Performed By: #### H H #### [facility] ([id number]) [address] [place] [address] 10792 Potassium [Moles/Vol] 3.9 mmol/L Normal 3.5-5.0 [facility] Comment on above: Performed By: #### H H #### [facility] ([id number]) [address] [place] [address] 40294 Protein [Mass/Vol] 5.8 g/dL Low 6.0-8.0 [facility] Comment on above: Performed By: #### H H #### [facility] ([id number]) [address] [place] [address] 40810 Sodium [Moles/Vol] 136 mmol/L Normal 134-146 [facility] Comment on above: Performed By: #### H H #### [facility] ([id number]) [address] [place] [address] 24444 Urea nitrogen [Mass/Vol] 29 mg/dL High 5-27 [facility] Comment on above: Performed By: #### H H #### [facility] ([id number]) [address] [place] [address] 46219 HEMOGLOBINon 08-15-2024 Hemoglobin (Bld) [Mass/Vol] 5.2 g/dL Critically low 11.7-15.5 [facility] Comment on above: Performed By: #### H H #### [facility] ([id number]) [address] [place] [address] 27979 HGBon 08-15-2024 Hematocrit (Bld) [Volume fraction] 23.5 % Low 35-47 [facility] Comment on above: Performed By: #### H H #### [facility] ([id number]) [address] [place] [address] 93189 Hemoglobin (Bld) [Mass/Vol] 8.2 g/dL Low 11.7-15.5 [facility] Comment on above: Performed By: #### H H #### [facility] ([id number]) [address] [place] [address] 66274 Lactate (P zandra) [Moles/Vol]o n 08-15-2024 LACTATE W/REFLEX 1.2 mmol/L Normal 0.4-2.0 [facility] Comment on above: Result Comment: Result did not trigger repeat Lactate, re-order if needed. Performed By: #### H H #### [facility] ([id number]) [address] [place] [address] 60479 MAGNESIUMon 08-15-2024 Magnesium [Mass/Vol] 1.7 mg/dL Low 1.8-2.6 [facility] Comment on above: Performed By: #### H H #### [facility] ([id number]) [address] [place] [address] 01177 Troponin I.cardiac High sens itivity method [Mass/Vol]on 08-15-2024 1 HOUR TROP I, HIGH SENSITIVITY 40 ng/L High <16 [facility] Comment on above: Result Comment: Elevations of hs-Troponin may be due to causes other than myocardial ischemia. Recommend serial hs-Troponin testing be performed. For the initial evaluation and management of chest pain patients, refer to the algorithms linked below. Emergency Patient: [email or web address] Inpatient: [email or web address] Performed By: #### H H #### [facility] ([id number]) [address] [place] [address] 63066 TROPONIN I, HIGH SENSITIVITY 39 ng/L High <16 [facility] Comment on above: Result Comment: Elevations of hs-Troponin may be due to causes other than myocardial ischemia. Recommend serial hs-Troponin testing be performed. For the initial evaluation and management of chest pain patients, refer to the algorithms linked below. Emergency Patient: [email or web address] Inpatient: [email or web address] Performed By: #### H H #### [facility] ([id number]) [address] [place] [address] 45168 XR CHEST 1 VWon 08-15-2024 XR CHEST 1 VW XR CHEST 1 VW Single view chest XR CHEST 1 VW History: hypotension Comparison: August 06, 2024 Impression: * Modest left basilar consolidation could be atelectasis or pneumonia exacerbated by poor inspiration. Follow-up frontal and lateral chest x-ray recommended. Finalized by Elias Nunn MD on 08/15/2024 2:32 PM Normal [facility] BASIC METABOLIC PANLon 08-10 Anion gap [Moles/Vol] 10 mmol/L Normal 5-15 [facility] Comment on above: Performed By: #### C BCA, FEPR, 6-4, 2283-8, 2132-01 #### [facility] ([id number]) [address], [address] [place] [address] Calcium [Mass/Vol] 8.5 mg/dL Normal 8.5-10.5 [facility] Comment on above: Performed By: #### C BCA, FEPR, 2275-4, 2283-8, 2132-01 #### [facility] ([id number]) [address], [address] [place] [address] Chloride [Moles/Vol] 99 mmol/L Normal 98-109 [facility] Comment on above: Performed By: #### C BCA, FEPR, 2275-4, 2283-8, 2132-01 #### [facility] ([id number]) [address], [address] [place] [address] CO2 [Moles/Vol] 26 mmol/L Normal 22-32 [facility] Comment on above: Performed By: #### C BCA, FEPR, 6-4, 2283-8, 2132-01 #### [facility] ([id number]) [address], [address] [place] [address] Creatinine [Mass/Vol] 4.91 mg/dL High 0.40-1.00 [facility] Comment on above: Result Comment: METH OD TRACEABLE TO IDMS STANDARD Performed By: #### C BCA, FEPR, 2275-4, 2283-12, 2132-01 #### [facility] ([id number]) [address], [facility] [address] [place] [address] GFR/1.73 sq M.predicted among non-blacks MDRD (S/P/Bld) [Vol rate/Area] 9 mL/min/{1.73_m2} Low >59 [facility] Comment on above: Result Comment: Reported eGFR is based on the CKD-EPI 2020 equation that does not use a race coefficient. Performed By: #### C BCA, FEPR, 2275-, 2283-12, 2132-01 #### [facility] ([id number]) [address], [address] [place] [address] Glucose [Mass/Vol] 106 mg/dL High 65-99 [facility] Comment on above: Performed By: #### C BCA, FEPR, 2275-, 2283-12, 2132-01 #### [facility] ([id number]) [address], [address] [place] [address] Potassium [Moles/Vol] 5.1 mmol/L High 3.5-5.0 [facility] Comment on above: Performed By: #### C BCA, FEPR, 2275-4, 2283-12, 2132-01 #### [facility] ([id number]) [address], [address] [place] [address] Sodium [Moles/Vol] 135 mmol/L Normal 134-146 [facility] Comment on above: Performed By: #### C BCA, FEPR, 2275-, 2283-12, 2132-01 #### [facility] ([id number]) [address], [address] [place] [address] Urea nitrogen [Mass/Vol] 58 mg/dL High 5-27 [facility] Comment on above: Performed By: #### C BCA, FEPR, 4, 2283-12, 2132-01 #### [facility] ([id number]) [address] [facility], [address] [place] [address] Basic Metabolic Panelon 07-31 Anion gap [Moles/Vol] 10 mmol/L 5 - 15 mmol/L [facility] Calcium [Mass/Vol] 8.5 mg/dL 8.5 - 10. 5 mg/dL [facility] Chloride [Moles/Vol] 99 mmol/L 98 - 10 9 mmol/L [facility] CO2 [Moles/Vol] 26 mmol/L 22 - 32 mmol/L [facility] Creatinine [Mass/Vol] 4.91 mg/dL High 0.40 - 1.00 mg/dL [facility] Comment on above: METHOD TRACEABLE TO [facility] STANDARD eGFR (CKD-EPI)non-race dependent 9 Low - PINF [facility] Comment on above: Reported eGFR is based on the CKD-EPI 2020 equation that does not use a race coefficient. Glucose [Mass/Vol] 106 mg/dL High 65 - 99 mg/dL [facility] Interpretation and review of laboratory results Abnormal [facility] Potassium [Moles/Vol] 5.1 mmol/L High 3.5 - 5.0 mmol/L [facility] Sodium [Moles/Vol] 135 mmol/L 134 - 146 mmol/L [facility] Urea nitrogen [Mass/Vol] 58 mg/dL High 5 - 27 mg/dL [facility] CBC AND AUTO DIFFon 08-11-19 25 ABSOLUTE BASOPHIL 0.1 X10E9/L Normal 0.0-0.2 [facility] Comment on above: Performed By: #### C ANGELLA, FEPR, 4, 2283-12, 2132-01 #### [facility] ([id number]) [address] [facility] [place] [address] Anisocytosis Ql (Bld) 2+ Abnormal NONE [facility] Comment on above: Performed By: #### C BCA, FEPR, 2275-08, 2283-12, 2132-01 #### [facility] ([id number]) [address], [address] [place] [address] Basophils/100 WBC (Bld) 2.0 % Normal [facility] Comment on above: Performed By: #### C BCA, FEPR, 2275-08, 2283-12, 2132-01 #### [facility] ([id number]) [address], [address] [place] [address] Eosinophils (Bld) [#/Vol] 0.2 10*3/uL Normal 0.0-0.4 [facility] Comment on above: Performed By: #### C BCA, FEPR, 2275-08, 2283-12, 2132-01 #### [facility] ([id number]) [address], [address] [place] [address] Eosinophils/100 WBC (Bld) 3.0 % Normal [facility] Comment on above: Performed By: #### C BCA, FEPR, 2275-08, 2283-12, 2132-01 #### [facility] ([id number]) [address], [address] [place] [address] Erythrocyte distribution width (RBC) [Ratio] 23.5 % High 11.5-15.0 [facility] Comment on above: Performed By: #### C BCA, FEPR, 2275-08, 2283-12, 2132-01 #### [facility] ([id number]) [address], [address] [place] [address] Hematocrit (Bld) [Volume fraction] 22.0 % Low 35-47 [facility] Comment on above: Performed By: #### C BCA, FEPR, 2275-08, 2283-12, 2132-01 #### [facility] ([id number]) [address], [address] [place] [address] Hemoglobin (Bld) [Mass/Vol] 7.3 g/dL Low 11.7-15.5 [facility] Comment on above: Performed By: #### C BCA, FEPR, 2275-08, 2283-12, 2132-01 #### [facility] ([id number]) [address], [address] [place] [address] Lymphocytes (Bld) [#/Vol] 1.0 10*3/uL Normal 1.0-3.5 [facility] Comment on above: Performed By: #### C BCA, FEPR, 2275-08, 2283-12, 2132-01 #### [facility] ([id number]) [address] [place] [address] Lymphocytes/100 WBC (Bld) 18.0 % Normal [facility] Comment on above: Performed By: #### C BCA, FEPR, 2275-08, 2283-12, 2132-01 #### [facility] ([id number]) [address] [place] [address] MCH (RBC) [Entitic mass] 32.6 pg Normal 27-34 [facility] Comment on above: Performed By: #### C BCA, FEPR, 2275-08, 2283-12, 2132-01 #### [facility] ([id number]) [address], [address] [place] [address] MCHC (RBC) [Mass/Vol] 33.0 g/dL Normal 32-36 [facility] Comment on above: Performed By: #### C BCA, FEPR, 2275-08, 2283-12, 2132-01 #### [facility] ([id number]) [address], [address] [place] [address] MCV (RBC) [Entitic vol] 99 fL Normal 80-100 [facility] Comment on above: Performed By: #### C BCA, FEPR, 2275-08, 2283-12, 2132-01 #### [facility] ([id number]) [address], [address] [place] [address] Monocytes (Bld) [#/Vol] 0.3 10*3/uL Normal 0-0.9 [facility] Comment on above: Performed By: #### C BCA, FEPR, 2275-08, 2283-12, 2132-01 #### [facility] ([id number]) [address], [address] [place] [address] Monocytes/100 WBC (Bld) 6.0 % Normal [facility] Comment on above: Performed By: #### C BCA, FEPR, 2275-08, 2283-12, 2132-01 #### [facility] ([id number]) [address], [address] [place] [address] Neutrophils (Bld) [#/Vol] 3.8 10*3/uL Normal 1.5-6.6 [facility] Comment on above: Performed By: #### C BCA, FEPR, 2275-08, 2283-12, 2132-01 #### [facility] ([id number]) [address], [address] [place] [address] OVALOCYTE 1+ Abnormal NONE [facility] Comment on above: Performed By: #### C BCA, FEPR, 2275-08, 2283-12, 2132-01 #### [facility] ([id number]) [address], [address] [place] [address] Platelet mean volume (Bld) [Entitic vol] 9.5 fL Normal 7-12 [facility] Comment on above: Performed By: #### C BCA, FEPR, 2275-08, 2283-12, 2132-01 #### [facility] ([id number]) [address], [address] [place] [address] Platelets (Bld) [#/Vol] 118 10*3/uL Low 150-450 [facility] Comment on above: Performed By: #### C BCA, FEPR, 2275-4, 8, 2132-01 #### [facility] ([id number]) [address], [address] [place] [address] POLYCHROMASIA 1+ Abnormal NONE [facility] Comment on above: Performed By: #### C BCA, FEPR, 2275-4, 2283-12, 2132-01 #### [facility] ([id number]) [address], [address] [place] [address] RBC COUNT 2.23 X10E12/L Low 3.80-5.20 [facility] Comment on above: Performed By: #### C BCA, FEPR, 2275-4, 2283-12, 2132-01 #### [facility] ([id number]) [address], [address] [place] [address] SEG NEUTROPHIL 71.0 % Normal [facility] Comment on above: Performed By: #### C BCA, FEPR, 2275-, 2283-12, 2132-01 #### [facility] ([id number]) [address], [address] [place] [address] TEARDROP 1+ Abnormal NONE [facility] Comment on above: Performed By: #### C BCA, FEPR, 2275-4, 2283-12, 2132-01 #### [facility] ([id number]) [address], [address] [place] [address] WBC (Bld) [#/Vol] 5.4 10*3/uL Normal 4.0-11.0 [facility] Comment on above: Performed By: #### C BCA, FEPR, 2275-4, 2283-8, 2132-01 #### [facility] ([id number]) [address], [address] [place] [address] CBC auto differentialon 04- Anisocytosis Ql (Bld) 2+ Abnormal NONE^NONE [facility] Basophils (Bld) [#/Vol] 0.1 10*3/uL [facility] Basophils/100 WBC (Bld) 2 % [facility] Dacrocytes LM Ql (Bld) 1+ Abnormal NONE^NONE [facility] Eosinophils (Bld) [#/Vol] 0.2 10*3/uL [facility] Eosinophils/100 WBC (Bld) 3 % [facility] Erythrocyte distribution width (RBC) [Ratio] 23.5 % High 11.5 - 15.0 % [facility] Hematocrit (Bld) [Volume fraction] 22 % Low 35 - 47 % [facility] Hemoglobin (Bld) [Mass/Vol] 7.3 g/dL Low 11.7 - 15.5 g/dL [facility] Interpretation and review of laboratory results Abnormal [facility] Lymphocytes (Bld) [#/Vol] 1 10*3/uL [facility] Lymphocytes/100 WBC (Bld) 18 % [facility] MCH (RBC) [Entitic mass] 32.6 pg 27 - 34 pg [facility] MCHC (RBC) [Mass/Vol] 33 g/dL 32 - 3 6 g/dL [facility] MCV (RBC) [Entitic vol] 99 fL 80 - 100 fL [facility] Monocytes (Bld) [#/Vol] 0.3 10*3/uL [facility] Monocytes/100 WBC (Bld) 6 % [facility] Neutrophils (Bld) [#/Vol] 3.8 10*3/uL [facility] Ovalocytes LM Ql (Bld) 1+ Abnormal NONE^NONE [facility] Platelet mean volume (Bld) [Entitic vol] 9.5 fL 7 - 12 fL [facility] Platelets (Bld) [#/Vol] 118 10*3/uL Low [facility] Polychromasia LM Ql (Bld) 1+ Abnormal NONE^NONE [facility] RBC (Bld) [#/Vol] 2.23 10*6/uL Low [facility] Segmented neutrophils/100 WBC (Bld) 71 % [facility] WBC corrected for nucl RBC Auto (Bld) [#/Vol] 5.4 [facility] ECG 12 leadon 08-10-2024 TRACEMASTERVUE [facility] Glucose Glucometer (BldC) [M ass/Vol]on 08-10-2024 Glucose [Mass/Vol] 128 mg/dL High 65-99 [facility] Interpretation and review of laboratory results Abnormal [facility] Glucose [Mass/Vol] 146 mg/dL High 65 - 99 mg/dL [facility] Interpretation and review of laboratory results Abnormal [facility] Glucose [Mass/Vol] 146 mg/dL High 65-99 [facility] Glucose [Mass/Vol] 114 mg/dL High 65 - 99 mg/dL [facility] Interpretation and review of laboratory results Abnormal [facility] Glucose [Mass/Vol] 114 mg/dL High 65-99 [facility] Hemodialysis inpatienton Марина Medina RN 08/10/2024 4:31 PM Pt dialyzed for 3.5 hours today and had a net fluid removal of 1.0kg Pre wt 106.6kg Post 105.6kg One dose of albumin given for blood pressure support One dose of zofran given for nausea Access functioned well at ordered 350 pump speed [facility] MAGNESIUMon 08-10-2024 Magnesium [Mass/Vol] 1.9 mg/dL Normal 1.8-2.6 [facility] Comment on above: Performed By: #### C BCA, FEPR, 2276-4, 2284-8, 2132-9 #### [facility] ([id number]) [address] [facility] [address], [address] [place] [address] Magnesiumon 08-10-2024 Magnesium [Mass/Vol] 1.9 mg/dL 1.8 - 2 .6 mg/dL [facility] No Panel Informationon 08-10 [facility] PHOSPHORUSon 08-10-2024 Phosphate [Mass/Vol] 4.6 mg/dL Normal 2.4-4.9 [facility] Comment on above: Performed By: #### C BCA, FEPR, 6-4, 2283-8, 2132-01 #### [facility] ([id number]) [address], [address] [place] [address] Parathyrin.intact [Mass/Vol] on 08-10-2024 Interpretation and review of laboratory results Abnormal [facility] PTH INTACT 290 pg/mL High 12-88 [facility] Comment on above: Performed By: #### C BCA, FEPR, 6-4, 2283-8, 2132-01 #### [facility] ([id number]) [address] [facility], [address] [place] [address] Parathyroid Hormone, intacto n 08-10-2024 Parathyrin.intact [Mass/Vol] 290 pg/mL High 12 - 88 pg/mL [facility] Phosphoruson 08-10-2024 Phosphate [Mass/Vol] 4.6 mg/dL 2.4 - 4 .9 mg/dL [facility] Vitamin D 25 hydroxyon 08-10 Vitamin D+Metabolites [Mass/Vol] 12.7 ng/mL Low 30 - 100 ng/mL [facility] Comment on above: Vitamin D status 25 [place] Vitamin D Deficiency <20 ng/mL Insufficiency 20-29 ng/mL Sufficiency 30-100 ng/mL Toxicity >100 ng/mL NOTE: A pediatric reference range has not been established by the automatic pinsetter adjuster of this kit. The [place] [employer] recommends a Vitamin D level of = or >20ng/mL in infants and children. Vitamin D+Metabolites [Mass/ Vol]on 08-10-2024 Interpretation and review of laboratory results Abnormal [facility] VITAMIN D 25 HYD TOT 12.7 ng/mL Low 30-100 [facility] Comment on above: Result Comment: Vitamin D status 25 [place] Vitamin D Deficiency <20 ng/mL Insufficiency 20-29 ng/mL Sufficiency 30-100 ng/mL Toxicity >100 ng/mL NOTE: A pediatric reference range has not been established by the automatic pinsetter adjuster of this kit. The [place] [employer] recommends a Vitamin D level of = or >20ng/mL in infants and children. Performed By: #### C BCA, FEPR, 6-4, 2283-8, 2132-01 #### [facility] ([id number]) [address], [address] [place] [address] BASIC METABOLIC PANLon 08-09 Anion gap [Moles/Vol] 9 mmol/L Normal 5-15 [facility] Comment on above: Performed By: #### C BCA, FEPR, 2275-4, 2283-8, 2132-01 #### [facility] ([id number]) [address], [address] [place] [address] Calcium [Mass/Vol] 8.6 mg/dL Normal 8.5-10.5 [facility] Comment on above: Performed By: #### C BCA, FEPR, 2275-4, 2283-8, 2132-01 #### [facility] ([id number]) [address], [address] [place] [address] Chloride [Moles/Vol] 101 mmol/L Normal 98-109 [facility] Comment on above: Performed By: #### C BCA, FEPR, 2275-4, 2283-8, 2132-01 #### [facility] ([id number]) [address], [address] [place] [address] CO2 [Moles/Vol] 27 mmol/L Normal 22-32 [facility] Comment on above: Performed By: #### C BCA, FEPR, 6-4, 2283-8, 2132-01 #### [facility] ([id number]) [address], [address] [place] [address] Creatinine [Mass/Vol] 3.99 mg/dL High 0.40-1.00 [facility] Comment on above: METHOD TRACEABLE TO IDMS STANDARD Result Comment: METH OD TRACEABLE TO IDMS STANDARD Performed By: #### C BCA, FEPR, 6-4, 2283-8, 2132-01 #### [facility] ([id number]) [address], [address] [place] [address] Glucose [Mass/Vol] 118 mg/dL High 65-99 [facility] Comment on above: Performed By: #### C BCA, FEPR, 2275-4, 2283-12, 2132-01 #### [facility] ([id number]) [address], [address] [place] [address] Potassium [Moles/Vol] 4.9 mmol/L Normal 3.5-5.0 [facility] Comment on above: Performed By: #### C BCA, FEPR, 2275-4, 8, 2132-01 #### [facility] ([id number]) [address], [address] [place] [address] Sodium [Moles/Vol] 137 mmol/L Normal 134-146 [facility] Comment on above: Performed By: #### C BCA, FEPR, 2275-4, 2283-12, 2132-01 #### [facility] ([id number]) [address], [address] [place] [address] Urea nitrogen [Mass/Vol] 45 mg/dL High 5-27 [facility] Comment on above: Performed By: #### C BCA, FEPR, 2275-4, 2283-12, 2132-01 #### [facility] ([id number]) [address], [address] [place] [address] GFR/1.73 sq M.predicted among non-blacks MDRD (S/P/Bld) [Vol rate/Area] 11 mL/min/{1.73_m2} Low >59 [facility] Comment on above: Result Comment: Reported eGFR is based on the CKD-EPI 2020 equation that does not use a race coefficient. Performed By: #### C ANGELLA, FEPR, 6-4, 2283-8, 2132-01 #### [facility] ([id number]) [address] [address] Basic Metabolic Panelon 07-31 eGFR (CKD-EPI)non-race dependent 11 Low - PINF [facility] Comment on above: Reported eGFR is based on the CKD-EPI 2020 equation that does not use a race coefficient. Interpretation and review of laboratory results Abnormal [facility] CBC AND AUTO DIFFon 08-10-19 25 Eosinophils (Bld) [#/Vol] 0.1 10*3/uL Normal 0.0-0.4 [facility] Comment on above: Performed By: #### C ANGELLA, FEPR, 2275-4, 2283-12, 2132-01 #### [facility] ([id number]) [address] [address] Erythrocyte distribution width (RBC) [Ratio] 24.2 % High 11.5-15.0 [facility] Comment on above: Performed By: #### C ANGELLA, FEPR, 2275-4, 8, 2132-01 #### [facility] ([id number]) [address], [address] [address] Hematocrit (Bld) [Volume fraction] 23.7 % Low 35-47 [facility] Comment on above: Performed By: #### C ANGELLA, FEPR, 2275-, 2283-12, 2132-01 #### [facility] ([id number]) [address] [address] Hemoglobin (Bld) [Mass/Vol] 7.8 g/dL Low 11.7-15.5 [facility] Comment on above: Performed By: #### C BCA, FEPR, 2275-, 2283-12, 2132-01 #### [facility] ([id number]) [address], [address] [place] [address] Lymphocytes/100 WBC (Bld) 18.1 % Normal [facility] Comment on above: Performed By: #### C BCA, FEPR, 2275-08, 2283-12, 2132-01 #### [facility] ([id number]) [address], [address] [place] [address] MCV (RBC) [Entitic vol] 97 fL Normal 80-100 [facility] Comment on above: Performed By: #### C BCA, FEPR, 2275-08, 2283-12, 2132-01 #### [facility] ([id number]) [address], [address] [place] [address] Monocytes (Bld) [#/Vol] 0.3 10*3/uL Normal 0-0.9 [facility] Comment on above: Performed By: #### C BCA, FEPR, 2275-08, 2283-12, 2132-01 #### [facility] ([id number]) [address], [address] [place] [address] Monocytes/100 WBC (Bld) 4.8 % Normal [facility] Comment on above: Performed By: #### C BCA, FEPR, 2275-08, 2283-12, 2132-01 #### [facility] ([id number]) [address], [address] [place] [address] Neutrophils (Bld) [#/Vol] 4.1 10*3/uL Normal 1.5-6.6 [facility] Comment on above: Performed By: #### C BCA, FEPR, 2275-08, 2283-12, 2132-01 #### [facility] ([id number]) [address], [address] [place] [address] Platelet mean volume (Bld) [Entitic vol] 9.3 fL Normal 7-12 [facility] Comment on above: Performed By: #### C BCA, FEPR, 2275-08, 2283-12, 2132-01 #### [facility] ([id number]) [address], [facility] [address] [place] [address] Platelets (Bld) [#/Vol] 126 10*3/uL Low 150-450 [facility] Comment on above: Performed By: #### C BCA, FEPR, 2275-08, 2283-12, 2132-01 #### [facility] ([id number]) [address] [address] [place] [address] Eosinophils/100 WBC (Bld) 1.0 % Normal [facility] Comment on above: Performed By: #### C BCA, FEPR, 2275-08, 2283-12, 2132-01 #### [facility] ([id number]) [address] [address] [place] [address] Lymphocytes (Bld) [#/Vol] 1.0 10*3/uL Normal 1.0-3.5 [facility] Comment on above: Performed By: #### C BCA, FEPR, 2275-08, 2283-12, 2132-01 #### [facility] ([id number]) [address], [facility] [address] [place] [address] MCH (RBC) [Entitic mass] 32.0 pg Normal 27-34 [facility] Comment on above: Performed By: #### C BCA, FEPR, 2275-08, 2283-12, 2132-01 #### [facility] ([id number]) [address] [address] [place] [address] MCHC (RBC) [Mass/Vol] 33.0 g/dL Normal 32-36 [facility] Comment on above: Performed By: #### C BCA, FEPR, 2275-4, 2283-8, 2132-01 #### [facility] ([id number]) [address], [address] [address] POLYCHROMASIA 1+ Abnormal NONE [facility] Comment on above: Performed By: #### C BCA, FEPR, 6-4, 2283-8, 2132-01 #### [facility] ([id number]) [address], [address] [address] RBC COUNT 2.44 X10E12/L Low 3.80-5.20 [facility] Comment on above: Performed By: #### C BCA, FEPR, 2275-4, 2283-, 2132-01 #### [facility] ([id number]) [address], [address] [address] SEG NEUTROPHIL 76.1 % Normal [facility] Comment on above: Performed By: #### C BCA, FEPR, 6-4, 2283-8, 2132-01 #### [facility] ([id number]) [address], [address] [address] WBC (Bld) [#/Vol] 5.4 10*3/uL Normal 4.0-11.0 [facility] Comment on above: Performed By: #### C BCA, FEPR, 2275-4, 8, 2132-01 #### [facility] ([id number]) [address], [address] [place] [address] CBC auto differentialon 04- 0-2024 Eosinophils/100 WBC (Bld) 1 % [facility] Interpretation and review of laboratory results Abnormal [facility] Lymphocytes (Bld) [#/Vol] 1 10*3/uL [facility] MCH (RBC) [Entitic mass] 32 pg 27 - 34 pg [facility] MCHC (RBC) [Mass/Vol] 33 g/dL 32 - 3 6 g/dL [facility] Polychromasia LM Ql (Bld) 1+ Abnormal NONE^NONE [facility] RBC (Bld) [#/Vol] 2.44 10*6/uL Low [facility] Segmented neutrophils/100 WBC (Bld) 76.1 % [facility] WBC corrected for nucl RBC Auto (Bld) [#/Vol] 5.4 [facility] Free T4 [Mass/Vol]on 025 Interpretation and review of laboratory results Abnormal [facility] Glucose Glucometer (BldC) [M ass/Vol]on 08-09-2024 Glucose [Mass/Vol] 185 mg/dL High 65 - 99 mg/dL [facility] Interpretation and review of laboratory results Abnormal [facility] Glucose [Mass/Vol] 185 mg/dL High 65-99 [facility] Glucose [Mass/Vol] 119 mg/dL High 65 - 99 mg/dL [facility] Interpretation and review of laboratory results Abnormal [facility] Glucose [Mass/Vol] 119 mg/dL High 65-99 [facility] Glucose [Mass/Vol] 178 mg/dL High 65 - 99 mg/dL [facility] Interpretation and review of laboratory results Abnormal [facility] Glucose [Mass/Vol] 178 mg/dL High 65-99 [facility] Glucose [Mass/Vol] 129 mg/dL High 65 - 99 mg/dL [facility] Interpretation and review of laboratory results Abnormal [facility] Glucose [Mass/Vol] 129 mg/dL High 65-99 [facility] Glucose [Mass/Vol] 124 mg/dL High 65 - 99 mg/dL [facility] Interpretation and review of laboratory results Abnormal [facility] HGBon 08-09-2024 Hematocrit (Bld) [Volume fraction] 23.9 % Low 35-47 [facility] Comment on above: Performed By: #### C BCA, FEPR, 2276-4, 2284-8, 2132-9 #### [facility] ([id number]) [address], [address] [place] [address] Hemoglobin (Bld) [Mass/Vol] 8.0 g/dL Low 11.7-15.5 [facility] Comment on above: Performed By: #### C BCA, FEPR, 6-4, 2283-8, 2132-01 #### [facility] ([id number]) [address], [address] [place] [address] Hemoglobin and hematocrit, b loodon 08-09-2024 Hematocrit (Bld) [Volume fraction] 23.9 % Low 35 - 47 % [facility] Hemoglobin (Bld) [Mass/Vol] 8 g/dL Low 11.7 - 15.5 g/dL [facility] Interpretation and review of laboratory results Abnormal [facility] - Chemistry and C hemistry - challengeon 08-09-2024 Magnesium [Mass/Vol] 1.9 mg/dL Normal 1.8-2.6 [facility] Comment on above: Performed By: #### C BCA, FEPR, 2275-4, 8, 2132-01 #### [facility] ([id number]) [address] [facility] [facility] [place] [address] Phosphate [Mass/Vol] 3.9 mg/dL Normal 2.4-4.9 [facility] Comment on above: Performed By: #### C BCA, FEPR, 2275-4, 8, 2132-01 #### [facility] ([id number]) [address], [address] [place] [address] No Panel Informationon 08-09 [facility] T4, freeon 08-09-2024 Free T4 [Mass/Vol] 0.43 ng/dL Low 0.61 - 1.60 ng/dL [facility] Comment on above: CLIA ID [id number] ARTERIAL CODEon 08-08-2024 JANI'S TEST Pass Normal [facility] Comment on above: Performed By: #### C BCA, FEPR, 2276-4, 2283-12, 2132-01 #### [facility] ([id number]) [address], [address] [place] [address] BASE,DEFICIT 2.0 MMOL/L Normal 0.0-2.0 [facility] Comment on above: Performed By: #### C BCA, FEPR, 2275-4, 2283-12, 2132-01 #### [facility] ([id number]) [address], [address] [place] [address] Body temperature 98.6 [degF] Normal 37.0 [facility] Comment on above: Performed By: #### C BCA, FEPR, 2275-08, 2283-12, 2132-01 #### [facility] ([id number]) [address] [address] [place] [address] Glucose [Mass/Vol] 127 mg/dL High 65-99 [facility] Comment on above: Performed By: #### C BCA, FEPR, 2275-08, 2283-12, 2132-01 #### [facility] ([id number]) [address] [address] [address] [place] [address] HCO3 (Bld) [Moles/Vol] 23.8 mmol/L Normal 22-26 [facility] Comment on above: Performed By: #### C BCA, FEPR, 2275-4, 2283-12, 2132-01 #### [facility] ([id number]) [address] [address] [place] [address] Hematocrit (Bld) [Volume fraction] 23 % Low 35-47 [facility] Comment on above: Performed By: #### C BCA, FEPR, 2275-4, 2283-12, 2132-01 #### [facility] ([id number]) [address] [address] [place] [address] INSP. O2 CONC. 32 % Normal [facility] Comment on above: Performed By: #### C BCA, FEPR, 2275-4, 8, 2132-01 #### [facility] ([id number]) [address], [address] [place] [address] Oxygen (Bld) [Partial pressure] 93 mm[Hg] Normal 80-100 [facility] Comment on above: Performed By: #### C BCA, FEPR, 2275-4, 8, 2132-01 #### [facility] ([id number]) [address], [address] [place] [address] Oxygen saturation in Blood 97.0 % Normal >90 [facility] Comment on above: Performed By: #### C BCA, FEPR, 2275-4, 8, 2132-01 #### [facility] ([id number]) [address], [address] [place] [address] OXYGEN SOURCE NC Normal [facility] Comment on above: Performed By: #### C BCA, FEPR, 2275-4, 2283-12, 2132-01 #### [facility] ([id number]) [address], [address] [place] [address] PCO2 44.8 MMHG Normal 35-45 [facility] Comment on above: Performed By: #### C BCA, FEPR, 2275-4, 2283-12, 2132-01 #### [facility] ([id number]) [address], [address] [place] [address] pH (Bld) 7.333 [pH] Low 7.350-7.45 0 [facility] Comment on above: Performed By: #### C BCA, FEPR, 6-4, 2283-12, 2132-01 #### [facility] ([id number]) [address], [address] [place] [address] PORTABLE ICA 5.0 mg/dL Normal 4.5-5.3 [facility] Comment on above: Performed By: #### C BCA, FEPR, 6-4, 2283-8, 2132-01 #### [facility] ([id number]) [address], [address] [place] [address] Potassium [Moles/Vol] 5.4 mmol/L High 3.5-5.0 [facility] Comment on above: Performed By: #### C BCA, FEPR, 6-4, 2283-8, 2132-01 #### [facility] ([id number]) [address], [address] [place] [address] SAMPLE SITE RRad Normal [facility] Comment on above: Performed By: #### C BCA, FEPR, 2275-4, 2283-8, 2132-01 #### [facility] ([id number]) [address], [address] [place] [address] SAMPLE TYPE ARTERIAL Normal [facility] Comment on above: Performed By: #### C BCA, FEPR, 2275-4, 2283-12, 2132-01 #### [facility] ([id number]) [address], [address] [place] [address] Sodium [Moles/Vol] 133 mmol/L Low 134-146 [facility] Comment on above: Performed By: #### C BCA, FEPR, 2275-4, 2283-8, 2132-01 #### [facility] ([id number]) [address], [address] [place] [address] BASIC METABOLIC PANLon 08-08 Anion gap [Moles/Vol] 10 mmol/L Normal 5-15 [facility] Comment on above: Performed By: #### C BCA, FEPR, 6-4, 2283-8, 2132-01 #### [facility] ([id number]) [address], [address] [place] [address] Calcium [Mass/Vol] 8.3 mg/dL Low 8.5-10.5 [facility] Comment on above: Performed By: #### C BCA, FEPR, 6-4, 2283-8, 2132-01 #### [facility] ([id number]) [address], [address] [place] [address] Chloride [Moles/Vol] 100 mmol/L Normal 98-109 [facility] Comment on above: Performed By: #### C BCA, FEPR, 6-4, 2283-8, 2132-01 #### [facility] ([id number]) [address], [address] [place] [address] CO2 [Moles/Vol] 26 mmol/L Normal 22-32 [facility] Comment on above: Performed By: #### C BCA, FEPR, 2275-4, 2283-12, 2132-01 #### [facility] ([id number]) [address], [address] [place] [address] Creatinine [Mass/Vol] 3.43 mg/dL High 0.40-1.00 [facility] Comment on above: Result Comment: METH OD TRACEABLE TO IDMS STANDARD Performed By: #### C BCA, FEPR, 6-4, 2283-8, 2132-01 #### [facility] ([id number]) [address], [address] [place] [address] GFR/1.73 sq M.predicted among non-blacks MDRD (S/P/Bld) [Vol rate/Area] 14 mL/min/{1.73_m2} Low >59 [facility] Comment on above: Result Comment: Reported eGFR is based on the CKD-EPI 2020 equation that does not use a race coefficient. Performed By: #### C BCA, FEPR, 6-4, 2283-8, 2132-01 #### [facility] ([id number]) [address], [address] [place] [address] Glucose [Mass/Vol] 139 mg/dL High 65-99 [facility] Comment on above: Performed By: #### C BCA, FEPR, 6-4, 2283-8, 2132-01 #### [facility] ([id number]) [address], [address] [place] [address] Potassium [Moles/Vol] 4.4 mmol/L Normal 3.5-5.0 [facility] Comment on above: Performed By: #### C BCA, FEPR, 6-4, 2283-8, 2132-01 #### [facility] ([id number]) [address], [address] [place] [address] Sodium [Moles/Vol] 136 mmol/L Normal 134-146 [facility] Comment on above: Performed By: #### C BCA, FEPR, 2275-4, 2283-12, 2132-01 #### [facility] ([id number]) [address], [address] [place] [address] Urea nitrogen [Mass/Vol] 37 mg/dL High 5-27 [facility] Comment on above: Performed By: #### C BCA, FEPR, 6-4, 2283-8, 2132-01 #### [facility] ([id number]) [address], [address] [place] [address] Anion gap [Moles/Vol] 9 mmol/L Normal 5-15 [facility] Comment on above: Performed By: #### C ANGELLA, BMP, , 2777-1 #### [facility] ([id number]) [address], [address] [place] [address] Calcium [Mass/Vol] 8.5 mg/dL Normal 8.5-10.5 [facility] Comment on above: Performed By: #### C BCA, BMP, , 2776-05 #### [facility] ([id number]) [address], [address] [place] [address] Chloride [Moles/Vol] 101 mmol/L Normal 98-109 [facility] Comment on above: Performed By: #### C BCA, BMP, , 2776-05 #### [facility] ([id number]) [address], [address] [place] [address] CO2 [Moles/Vol] 27 mmol/L Normal 22-32 [facility] Comment on above: Performed By: #### C BCA, BMP, , 2776-05 #### [facility] ([id number]) [address], [address] [place] [address] Creatinine [Mass/Vol] 4.94 mg/dL High 0.40-1.00 [facility] Comment on above: Result Comment: METH OD TRACEABLE TO IDMS STANDARD Performed By: #### C BCA, BMP, , 2776-05 #### [facility] ([id number]) [address], [address] [place] [address] GFR/1.73 sq M.predicted among non-blacks MDRD (S/P/Bld) [Vol rate/Area] 9 mL/min/{1.73_m2} Low >59 [facility] Comment on above: Result Comment: Reported eGFR is based on the CKD-EPI 2020 equation that does not use a race coefficient. Performed By: #### C BCA, BMP, , 2776-05 #### [facility] ([id number]) [address], [address] [place] [address] Glucose [Mass/Vol] 99 mg/dL Normal 65-99 [facility] Comment on above: Performed By: #### C BCA, BMP, , 2776-05 #### [facility] ([id number]) [address], [address] [place] [address] Potassium [Moles/Vol] 5.5 mmol/L High 3.5-5.0 [facility] Comment on above: Performed By: #### C BCA, BMP, , 2776-1 #### [facility] ([id number]) [address], [address] [place] [address] Sodium [Moles/Vol] 137 mmol/L Normal 134-146 [facility] Comment on above: Performed By: #### C BCA, BMP, , 2776-1 #### [facility] ([id number]) [address], [address] [place] [address] Urea nitrogen [Mass/Vol] 57 mg/dL High 5-27 [facility] Comment on above: Performed By: #### C BCA, [facility], , 1 #### [facility] ([id number]) [address], [address] [place] [address] Basic Metabolic Panelon 04-0 Anion gap [Moles/Vol] 10 mmol/L 5 - 15 mmol/L [facility] Calcium [Mass/Vol] 8.3 mg/dL Low 8.5 - 10. 5 mg/dL [facility] Chloride [Moles/Vol] 100 mmol/L 98 - 10 9 mmol/L [facility] CO2 [Moles/Vol] 26 mmol/L 22 - 32 mmol/L [facility] Creatinine [Mass/Vol] 3.43 mg/dL High 0.40 - 1.00 mg/dL [facility] Comment on above: METHOD TRACEABLE TO IDMS STANDARD eGFR (CKD-EPI)non-race dependent 14 Low - PINF [facility] Comment on above: Reported eGFR is based on the CKD-EPI 2020 equation that does not use a race coefficient. Glucose [Mass/Vol] 139 mg/dL High 65 - 99 mg/dL [facility] Interpretation and review of laboratory results Abnormal [facility] Potassium [Moles/Vol] 4.4 mmol/L 3.5 - 5.0 mmol/L [facility] Sodium [Moles/Vol] 136 mmol/L 134 - 146 mmol/L [facility] Urea nitrogen [Mass/Vol] 37 mg/dL High 5 - 27 mg/dL [facility] Anion gap [Moles/Vol] 9 mmol/L 5 - 15 mmol/L [facility] Calcium [Mass/Vol] 8.5 mg/dL 8.5 - 10. 5 mg/dL [facility] Chloride [Moles/Vol] 101 mmol/L 98 - 10 9 mmol/L [facility] CO2 [Moles/Vol] 27 mmol/L 22 - 32 mmol/L [facility] Creatinine [Mass/Vol] 4.94 mg/dL High 0.40 - 1.00 mg/dL [facility] Comment on above: METHOD TRACEABLE TO [facility] STANDARD eGFR (CKD-EPI)non-race dependent 9 Low - PINF [facility] Comment on above: Reported eGFR is based on the CKD-EPI 2020 equation that does not use a race coefficient. Glucose [Mass/Vol] 99 mg/dL 65 - 99 mg/dL [facility] Interpretation and review of laboratory results Abnormal [facility] Potassium [Moles/Vol] 5.5 mmol/L High 3.5 - 5.0 mmol/L [facility] Sodium [Moles/Vol] 137 mmol/L 134 - 146 mmol/L [facility] Urea nitrogen [Mass/Vol] 57 mg/dL High 5 - 27 mg/dL [facility] CBC AND AUTO DIFFon 08-09-19 25 ABSOLUTE BASOPHIL 0.1 X10E9/L Normal 0.0-0.2 [facility] Comment on above: Performed By: #### C BCA, FEPR, 2275-08, 2283-12, 2132-01 #### [facility] ([id number]) [address] [place] [address] Anisocytosis Ql (Bld) 2+ Abnormal NONE [facility] Comment on above: Performed By: #### C BCA, FEPR, 2275-08, 2283-12, 2132-01 #### [facility] ([id number]) [address], [address] [place] [address] Basophils/100 WBC (Bld) 2.0 % Normal [facility] Comment on above: Performed By: #### C BCA, FEPR, 2275-08, 2283-12, 2132-01 #### [facility] ([id number]) [address], [address] [place] [address] Erythrocyte distribution width (RBC) [Ratio] 24.2 % High 11.5-15.0 [facility] Comment on above: Performed By: #### C BCA, FEPR, 2275-08, 2283-12, 2132-01 #### [facility] ([id number]) [address], [address] [place] [address] Hematocrit (Bld) [Volume fraction] 23.0 % Low 35-47 [facility] Comment on above: Performed By: #### C BCA, FEPR, 2275-08, 2283-12, 2132-01 #### [facility] ([id number]) [address], [address] [place] [address] Hemoglobin (Bld) [Mass/Vol] 7.6 g/dL Low 11.7-15.5 [facility] Comment on above: Performed By: #### C BCA, FEPR, 2275-08, 2283-12, 2132-01 #### [facility] ([id number]) [address], [address] [place] [address] Lymphocytes (Bld) [#/Vol] 0.8 10*3/uL Low 1.0-3.5 [facility] Comment on above: Performed By: #### C BCA, FEPR, 2275-08, 2283-12, 2132-01 #### [facility] ([id number]) [address], [address] [place] [address] Lymphocytes/100 WBC (Bld) 13.9 % Normal [facility] Comment on above: Performed By: #### C BCA, FEPR, 2275-08, 2283-12, 2132-01 #### [facility] ([id number]) [address], [address] [place] [address] MCH (RBC) [Entitic mass] 31.8 pg Normal 27-34 [facility] Comment on above: Performed By: #### C BCA, FEPR, 2275-08, 2283-12, 2132-01 #### [facility] ([id number]) [address], [facility] [address] [place] [address] MCHC (RBC) [Mass/Vol] 33.2 g/dL Normal 32-36 [facility] Comment on above: Performed By: #### C BCA, FEPR, 2275-08, 2283-12, 2132-01 #### [facility] ([id number]) [address], [address] [place] [address] MCV (RBC) [Entitic vol] 96 fL Normal 80-100 [facility] Comment on above: Performed By: #### C BCA, FEPR, 2275-08, 2283-12, 2132-01 #### [facility] ([id number]) [address], [address] [place] [address] Monocytes (Bld) [#/Vol] 0.4 10*3/uL Normal 0-0.9 [facility] Comment on above: Performed By: #### C BCA, FEPR, 2275-08, 2283-12, 2132-01 #### [facility] ([id number]) [address], [address] [place] [address] Monocytes/100 WBC (Bld) 6.9 % Normal [facility] Comment on above: Performed By: #### C BCA, FEPR, 2275-08, 2283-12, 2132-01 #### [facility] ([id number]) [address], [address] [place] [address] Neutrophils (Bld) [#/Vol] 4.6 10*3/uL Normal 1.5-6.6 [facility] Comment on above: Performed By: #### C BCA, FEPR, 2275-, 2283-12, 2132-01 #### [facility] ([id number]) [address], [address] [place] [address] Platelet mean volume (Bld) [Entitic vol] 9.4 fL Normal 7-12 [facility] Comment on above: Performed By: #### C BCA, FEPR, 2275-08, 2283-12, 2132-01 #### [facility] ([id number]) [address], [address] [place] [address] Platelets (Bld) [#/Vol] 124 10*3/uL Low 150-450 [facility] Comment on above: Performed By: #### C BCA, FEPR, 2275-08, 2283-12, 2132-01 #### [facility] ([id number]) [address], [address] [place] [address] RBC COUNT 2.40 X10E12/L Low 3.80-5.20 [facility] Comment on above: Performed By: #### C BCA, FEPR, 2275-08, 2283-12, 2132-01 #### [facility] ([id number]) [address], [address] [place] [address] SEG NEUTROPHIL 77.2 % Normal [facility] Comment on above: Performed By: #### C BCA, FEPR, 2275-08, 2283-12, 2132-01 #### [facility] ([id number]) [address], [address] [place] [address] STOMATOCYTE 1+ Abnormal NONE [facility] Comment on above: Performed By: #### C BCA, FEPR, 6-4, 2283-8, 2132-01 #### [facility] ([id number]) [address], [address] [place] [address] WBC (Bld) [#/Vol] 6.0 10*3/uL Normal 4.0-11.0 [facility] Comment on above: Performed By: #### C BCA, FEPR, 6-4, 2283-8, 2132-01 #### [facility] ([id number]) [address], [address] [place] [address] Eosinophils (Bld) [#/Vol] 0.1 10*3/uL Normal 0.0-0.4 [facility] Comment on above: Performed By: #### C BCA, BMP, , 2776-05 #### [facility] ([id number]) [address], [address] [place] [address] Eosinophils/100 WBC (Bld) 1.0 % Normal [facility] Comment on above: Performed By: #### C BCA, BMP, , 2776-05 #### [facility] ([id number]) [address], [address] [place] [address] Erythrocyte distribution width (RBC) [Ratio] 24.6 % High 11.5-15.0 [facility] Comment on above: Performed By: #### C BCA, BMP, , 2776-05 #### [facility] ([id number]) [address], [address] [place] [address] Hematocrit (Bld) [Volume fraction] 23.3 % Low 35-47 [facility] Comment on above: Performed By: #### C BCA, BMP, , 2776-05 #### [facility] ([id number]) [address], [address] [place] [address] Hemoglobin (Bld) [Mass/Vol] 7.6 g/dL Low 11.7-15.5 [facility] Comment on above: Performed By: #### C ANGELLA, BMP, , 2776-05 #### [facility] ([id number]) [address], [address] [place] [address] Lymphocytes (Bld) [#/Vol] 1.9 10*3/uL Normal 1.0-3.5 [facility] Comment on above: Performed By: #### C ANGELLA, BMP, , 2776-05 #### [facility] ([id number]) [address], [facility] [address] [place] [address] Lymphocytes/100 WBC (Bld) 30.0 % Normal [facility] Comment on above: Performed By: #### Elmer PERALES, BMP, , 2776-05 #### [facility] ([id number]) [address], [address] [place] [address] MCH (RBC) [Entitic mass] 31.9 pg Normal 27-34 [facility] Comment on above: Performed By: #### Elmer PERALES, BMP, , 2776-05 #### [facility] ([id number]) [address], [address] [place] [address] MCHC (RBC) [Mass/Vol] 32.8 g/dL Normal 32-36 [facility] Comment on above: Performed By: #### C ANGELLA, BMP, , 2776-05 #### [facility] ([id number]) [address], [address] [place] [address] MCV (RBC) [Entitic vol] 97 fL Normal 80-100 [facility] Comment on above: Performed By: #### Elmer PERALES, BMP, , 2776-05 #### [facility] ([id number]) [address], [address] [place] [address] Monocytes (Bld) [#/Vol] 0.4 10*3/uL Normal 0-0.9 [facility] Comment on above: Performed By: #### C ANGELLA, BMP, , 2776-05 #### [facility] ([id number]) [address], [address] [place] [address] Monocytes/100 WBC (Bld) 6.0 % Normal [facility] Comment on above: Performed By: #### C ANGELLA, BMP, , 2776-05 #### [facility] ([id number]) [address], [address] [place] [address] MYELOCYTE 1.0 % Normal [facility] Comment on above: Performed By: #### Elmer PERALES, BMP, , 2776-05 #### [facility] ([id number]) [address], [address] [place] [address] Neutrophils (Bld) [#/Vol] 3.9 10*3/uL Normal 1.5-6.6 [facility] Comment on above: Performed By: #### Elmer PERALES, BMP, , 2776-05 #### [facility] ([id number]) [address], [address] [place] [address] OVALOCYTE 1+ Abnormal NONE [facility] Comment on above: Performed By: #### C ANGELLA, BMP, , 2776-05 #### [facility] ([id number]) [address], [address] [place] [address] Platelet mean volume (Bld) [Entitic vol] 9.5 fL Normal 7-12 [facility] Comment on above: Performed By: #### Elmer PERALES, BMP, , 2776-05 #### [facility] ([id number]) [address], [address] [place] [address] Platelets (Bld) [#/Vol] 124 10*3/uL Low 150-450 [facility] Comment on above: Performed By: #### C MARLON PERALES, , 2776-05 #### [facility] ([id number]) [address], [address] [place] [address] POLYCHROMASIA 1+ Abnormal NONE [facility] Comment on above: Performed By: #### C MARLON PERALES, , 2776-05 #### [facility] ([id number]) [address], [address] [place] [address] RBC COUNT 2.39 X10E12/L Low 3.80-5.20 [facility] Comment on above: Performed By: #### MARLON Payne BCA, , 2776-05 #### [facility] ([id number]) [address], [address] [place] [address] SEG NEUTROPHIL 62.0 % Normal [facility] Comment on above: Performed By: #### MARLON Payne BCA, , 2776-05 #### [facility] ([id number]) [address], [address] [place] [address] TEARDROP 1+ Abnormal NONE [facility] Comment on above: Performed By: #### MARLON Payne BCA, , 2776-05 #### [facility] ([id number]) [address], [address] [place] [address] WBC (Bld) [#/Vol] 6.4 10*3/uL Normal 4.0-11.0 [facility] Comment on above: Performed By: #### Elmer PERALES, MARLON, , 2776-05 #### [facility] ([id number]) [address], [address] [place] [address] ABSOLUTE BASOPHIL 0.1 X10E9/L Normal 0.0-0.2 [facility] Comment on above: Performed By: #### C BCA, FEPR, 2275-08, 2283-12, 2132-01 #### [facility] ([id number]) [address], [address] [place] [address] ABSOLUTE NEUTROPHIL 4.6 X10E9/L Normal 1.5-6.6 [facility] Comment on above: Performed By: #### C BCA, FEPR, 2275-08, 2283-12, 2132-01 #### [facility] ([id number]) [address], [address] [place] [address] Basophils/100 WBC (Bld) 1.3 % Normal [facility] Comment on above: Performed By: #### C BCA, FEPR, 2275-08, 2283-12, 2132-01 #### [facility] ([id number]) [address], [address] [place] [address] Eosinophils (Bld) [#/Vol] 0.2 10*3/uL Normal 0.0-0.4 [facility] Comment on above: Performed By: #### C BCA, FEPR, 2275-08, 2283-12, 2132-01 #### [facility] ([id number]) [address], [address] [place] [address] Eosinophils/100 WBC (Bld) 3.2 % Normal [facility] Comment on above: Performed By: #### C BCA, FEPR, 2275-08, 2283-12, 2132-01 #### [facility] ([id number]) [address], [facility] [address] [place] [address] Erythrocyte distribution width (RBC) [Ratio] 25.1 % High 11.5-15.0 [facility] Comment on above: Performed By: #### C BCA, FEPR, 2275-08, 2283-12, 2132-01 #### [facility] ([id number]) [address], [address] [place] [address] Hematocrit (Bld) [Volume fraction] 24.7 % Low 35-47 [facility] Comment on above: Performed By: #### C BCA, FEPR, 2275-4, 2283-12, 2132-01 #### [facility] ([id number]) [address], [address] [place] [address] Hemoglobin (Bld) [Mass/Vol] 8.1 g/dL Low 11.7-15.5 [facility] Comment on above: Performed By: #### C BCA, FEPR, 2275-08, 2283-12, 2132-01 #### [facility] ([id number]) [address], [address] [place] [address] Lymphocytes (Bld) [#/Vol] 1.9 10*3/uL Normal 1.0-3.5 [facility] Comment on above: Performed By: #### C BCA, FEPR, 2275-08, 2283-12, 2132-01 #### [facility] ([id number]) [address], [address] [place] [address] Lymphocytes/100 WBC (Bld) 25.7 % Normal [facility] Comment on above: Performed By: #### C BCA, FEPR, 2275-08, 2283-12, 2132-01 #### [facility] ([id number]) [address], [address] [place] [address] MCH (RBC) [Entitic mass] 31.5 pg Normal 27-34 [facility] Comment on above: Performed By: #### C BCA, FEPR, 2275-4, 2283-12, 2132-01 #### [facility] ([id number]) [address], [address] [place] [address] MCHC (RBC) [Mass/Vol] 32.8 g/dL Normal 32-36 [facility] Comment on above: Performed By: #### C BCA, FEPR, 2275-, 2283-12, 2132-01 #### [facility] ([id number]) [address], [address] [place] [address] MCV (RBC) [Entitic vol] 96 fL Normal 80-100 [facility] Comment on above: Performed By: #### C BCA, FEPR, 2275-08, 2283-12, 2132-01 #### [facility] ([id number]) [address], [address] [place] [address] Monocytes (Bld) [#/Vol] 0.5 10*3/uL Normal 0-0.9 [facility] Comment on above: Performed By: #### C BCA, FEPR, 2275-08, 2283-12, 2132-01 #### [facility] ([id number]) [address], [address] [place] [address] Monocytes/100 WBC (Bld) 6.8 % Normal [facility] Comment on above: Performed By: #### C BCA, FEPR, 2275-08, 2283-12, 2132-01 #### [facility] ([id number]) [address], [address] [place] [address] Neutrophils/100 WBC (Bld) 63.0 % Normal [facility] Comment on above: Performed By: #### C BCA, FEPR, 2275-08, 2283-12, 2132-01 #### [facility] ([id number]) [address], [address] [place] [address] OVALOCYTE 1+ Abnormal NONE [facility] Comment on above: Performed By: #### C BCA, FEPR, 2275-08, 2283-12, 2132-01 #### [facility] ([id number]) [address], [address] [place] [address] Platelet mean volume (Bld) [Entitic vol] 9.3 fL Normal 7-12 [facility] Comment on above: Performed By: #### C BCA, FEPR, 2275-4, 2283-8, 2132-01 #### [facility] ([id number]) [address], [facility] [address] [place] [address] Platelets (Bld) [#/Vol] 129 10*3/uL Low 150-450 [facility] Comment on above: Performed By: #### C BCA, FEPR, 2275-4, 2283-8, 2132-01 #### [facility] ([id number]) [address], [facility] [address] [place] [address] POLYCHROMASIA 1+ Abnormal NONE [facility] Comment on above: Performed By: #### C BCA, FEPR, 2275-4, 2283-12, 2132-01 #### [facility] ([id number]) [address], [facility] [address] [place] [address] RBC COUNT 2.57 X10E12/L Low 3.80-5.20 [facility] Comment on above: Performed By: #### C BCA, FEPR, 2275-4, 2283-8, 2132-01 #### [facility] ([id number]) [address], [address] [address] TEARDROP 1+ Abnormal NONE [facility] Comment on above: Performed By: #### C BCA, FEPR, 2275-4, 2283-8, 2132-01 #### [facility] ([id number]) [address], [facility] [address] [place] [address] WBC (Bld) [#/Vol] 7.3 10*3/uL Normal 4.0-11.0 [facility] Comment on above: Performed By: #### C BCA, FEPR, 6-4, 2284-8, 213-9 #### [facility] ([id number]) [address] [facility] [place] [address] CBC auto differentialon Anisocytosis Ql (Bld) 2+ Abnormal NONE^NONE [facility] Basophils (Bld) [#/Vol] 0.1 10*3/uL [facility] Basophils/100 WBC (Bld) 2 % [facility] Erythrocyte distribution width (RBC) [Ratio] 24.2 % High 11.5 - 15.0 % [facility] Hematocrit (Bld) [Volume fraction] 23 % Low 35 - 47 % [facility] Hemoglobin (Bld) [Mass/Vol] 7.6 g/dL Low 11.7 - 15.5 g/dL [facility] Interpretation and review of laboratory results Abnormal [facility] Lymphocytes (Bld) [#/Vol] 0.8 10*3/uL Low [facility] Lymphocytes/100 WBC (Bld) 13.9 % [facility] MCH (RBC) [Entitic mass] 31.8 pg 27 - 34 pg [facility] MCHC (RBC) [Mass/Vol] 33.2 g/dL 32 - 3 6 g/dL [facility] MCV (RBC) [Entitic vol] 96 fL 80 - 100 fL [facility] Monocytes (Bld) [#/Vol] 0.4 10*3/uL [facility] Monocytes/100 WBC (Bld) 6.9 % [facility] Neutrophils (Bld) [#/Vol] 4.6 10*3/uL [facility] Platelet mean volume (Bld) [Entitic vol] 9.4 fL 7 - 12 fL [facility] Platelets (Bld) [#/Vol] 124 10*3/uL Low [facility] RBC (Bld) [#/Vol] 2.4 10*6/uL Low [facility] Segmented neutrophils/100 WBC (Bld) 77.2 % [facility] Stomatocytes LM Ql (Bld) 1+ Abnormal NONE^NONE [facility] WBC corrected for nucl RBC Auto (Bld) [#/Vol] 6 [facility] Dacrocytes LM Ql (Bld) 1+ Abnormal NONE^NONE [facility] Eosinophils (Bld) [#/Vol] 0.1 10*3/uL [facility] Eosinophils/100 WBC (Bld) 1 % [facility] Erythrocyte distribution width (RBC) [Ratio] 24.6 % High 11.5 - 15.0 % [facility] Hematocrit (Bld) [Volume fraction] 23.3 % Low 35 - 47 % [facility] Hemoglobin (Bld) [Mass/Vol] 7.6 g/dL Low 11.7 - 15.5 g/dL [facility] Interpretation and review of laboratory results Abnormal [facility] Lymphocytes (Bld) [#/Vol] 1.9 10*3/uL [facility] Lymphocytes/100 WBC (Bld) 30 % [facility] MCH (RBC) [Entitic mass] 31.9 pg 27 - [address] [facility] MCHC (RBC) [Mass/Vol] 32.8 g/dL 32 - 3 6 g/dL [facility] MCV (RBC) [Entitic vol] 97 fL 80 - 100 fL [facility] Monocytes (Bld) [#/Vol] 0.4 10*3/uL [facility] Monocytes/100 WBC (Bld) 6 % [facility] Myelocytes/100 WBC (Bld) 1 % [facility] Neutrophils (Bld) [#/Vol] 3.9 10*3/uL [facility] Ovalocytes LM Ql (Bld) 1+ Abnormal NONE^NONE [facility] Platelet mean volume (Bld) [Entitic vol] 9.5 fL 7 - [address] [facility] Platelets (Bld) [#/Vol] 124 10*3/uL Low [facility] Polychromasia LM Ql (Bld) 1+ Abnormal NONE^NONE [facility] RBC (Bld) [#/Vol] 2.39 10*6/uL Low [facility] Segmented neutrophils/100 WBC (Bld) 62 % [facility] WBC corrected for nucl RBC Auto (Bld) [#/Vol] 6.4 [facility] Basophils (Bld) [#/Vol] 0.1 10*3/uL [facility] Basophils/100 WBC (Bld) 1.3 % [facility] Dacrocytes LM Ql (Bld) 1+ Abnormal NONE^NONE [facility] Eosinophils (Bld) [#/Vol] 0.2 10*3/uL [facility] Eosinophils/100 WBC (Bld) 3.2 % [facility] Erythrocyte distribution width (RBC) [Ratio] 25.1 % High 11.5 - 15.0 % [facility] Hematocrit (Bld) [Volume fraction] 24.7 % Low 35 - 47 % [facility] Hemoglobin (Bld) [Mass/Vol] 8.1 g/dL Low 11.7 - 15.5 g/dL [facility] Interpretation and review of laboratory results Abnormal [facility] Lymphocytes (Bld) [#/Vol] 1.9 10*3/uL [facility] Lymphocytes/100 WBC (Bld) 25.7 % [facility] MCH (RBC) [Entitic mass] 31.5 pg 27 - 34 pg [facility] MCHC (RBC) [Mass/Vol] 32.8 g/dL 32 - 3 6 g/dL [facility] MCV (RBC) [Entitic vol] 96 fL 80 - 100 fL [facility] Monocytes (Bld) [#/Vol] 0.5 10*3/uL [facility] Monocytes/100 WBC (Bld) 6.8 % [facility] Neutrophils (Bld) [#/Vol] 4.6 10*3/uL [facility] Neutrophils/100 WBC (Bld) 63 % [facility] Ovalocytes LM Ql (Bld) 1+ Abnormal NONE^NONE [facility] Platelet mean volume (Bld) [Entitic vol] 9.3 fL 7 - 12 fL [facility] Platelets (Bld) [#/Vol] 129 10*3/uL Low [facility] Polychromasia LM Ql (Bld) 1+ Abnormal NONE^NONE [facility] RBC (Bld) [#/Vol] 2.57 10*6/uL Low [facility] WBC corrected for nucl RBC Auto (Bld) [#/Vol] 7.3 [facility] Cobalamin (Vitamin B12) [Mas s/Vol]on 08-08-2024 [facility] Electrocardiogram, 12-leadon 08-08-2024 TRACEMASTERVUE [facility] FERRITINon 08-08-2024 Ferritin [Mass/Vol] 504 ng/mL High 11-307 [facility] Comment on above: Performed By: #### C BCA, FEPR, 6-4, 2283-8, 2132-01 #### [facility] ([id number]) [address], [address] [place] [address] FREE T4on 08-08-2024 Free T4 [Mass/Vol] 0.43 ng/dL Low 0.61-1.60 [facility] Comment on above: Performed By: #### C BCA, FEPR, 2275-4, 2283-8, 2132-01 #### [facility] ([id number]) [address], [address] [place] [address] Ferritinon 08-08-2024 Ferritin [Mass/Vol] 504 ng/mL High 11 - 307 ng/mL [facility] Ferritin [Mass/Vol]on 2024 Interpretation and review of laboratory results Abnormal [facility] Folateon 08-08-2024 Folate [Mass/Vol] 5.4 ng/mL Low 5.8 - PINF ng/mL [facility] Comment on above: NEW REFERENCE RANGE Folate [Mass/Vol]on 08-09-19 Interpretation and review of laboratory results Abnormal [facility] FOLIC ACID 5.4 ng/mL Low >5.8 [facility] Comment on above: Result Comment: NEW REFERENCE RANGE Performed By: #### C BCA, FEPR, 6-4, 2283-8, 2132-01 #### [facility] ([id number]) [address], [address] [place] [address] Glucose Glucometer (BldC) [M ass/Vol]on 08-08-2024 Glucose [Mass/Vol] 148 mg/dL High 65 - 99 mg/dL [facility] Interpretation and review of laboratory results Abnormal [facility] Glucose [Mass/Vol] 148 mg/dL High 65-99 [facility] Glucose [Mass/Vol] 134 mg/dL High 65 - 99 mg/dL [facility] Interpretation and review of laboratory results Abnormal [facility] Glucose [Mass/Vol] 134 mg/dL High 65-99 [facility] Glucose [Mass/Vol] 124 mg/dL High 65-99 [facility] Glucose [Mass/Vol] 117 mg/dL High 65 - 99 mg/dL [facility] Interpretation and review of laboratory results Abnormal [facility] Glucose [Mass/Vol] 117 mg/dL High 65-99 [facility] Glucose [Mass/Vol] 116 mg/dL High 65 - 99 mg/dL [facility] Interpretation and review of laboratory results Abnormal [facility] Glucose [Mass/Vol] 116 mg/dL High 65-99 [facility] Glucose [Mass/Vol] 119 mg/dL High 65 - 99 mg/dL [facility] Interpretation and review of laboratory results Abnormal [facility] Glucose [Mass/Vol] 119 mg/dL High 65-99 [facility] Hemodialysis inpatienton Belkys Dee RN 08/09/2024 6:21 AM Pt completed 2 hour 10 minute treatment. Pt tolerated poorly. Pt's SBP decreased to 80's. Dr. Masterson at bedside and ordered albumin and midodrine. As I was putting in the order pt went bradycardic, in the 40's not responding, clammy. Gave [address] Masterson called and was told to stop treatment. He wanted rapid called and a stat EKG and labs. He also wanted pt to be evaluated for higher level of care. JOLEEN Abarca came and assessed pt, Dr. Vero Chawla came to also assess pt. Pt at that time was responding to questions, alert, but very lethargic. BP stable 138/59. He did not feel the need to transfer pt at that time. So pt was transferred back to her room. Pt's left AVF functioned well 350 bfr. Post BP 138/59 Post weight 107.5kg Fluid removal 1.2kg [facility] IRON PROFILEon 08-08-2024 Iron [Mass/Vol] 88 ug/dL Normal 50-170 [facility] Comment on above: Performed By: #### C BCA, FEPR, 2276-4, 2283-8, 2132-01 #### [facility] ([id number]) [address], [address] [place] [address] IRON BINDING 242 ug/dL Low 250-425 [facility] Comment on above: Performed By: #### C BCA, FEPR, 6-4, 2283-8, 2132-01 #### [facility] ([id number]) [address], [address] [place] [address] IRON SATURATION 36 % SATURATION Normal 15-50 [facility] Comment on above: Performed By: #### C BCA, FEPR, 6-4, 8, 2132-01 #### [facility] ([id number]) [address], [address] [place] [address] Iron and TIBCon 08-08-2024 Interpretation and review of laboratory results Abnormal [facility] Iron [Mass/Vol] 88 ug/dL 50 - 170 ug/dL [facility] Iron binding capacity [Mass/Vol] 242 ug/dL Low 250 - 425 ug/dL [facility] Iron saturation [Mass fraction] 36 [facility] Lactate (P zandra) [Moles/Vol]o n 08-08-2024 [facility] LACTATE W/REFLEX 0.5 mmol/L Normal 0.4-2.0 [facility] Comment on above: Result Comment: Result did not trigger repeat Lactate, re-order if needed. Performed By: #### C BCA, FEPR, 2276-4, 228-8, 2132-01 #### [facility] ([id number]) [address], [address] [place] [address] Lactate w/ Reflexon 08-09-19 Lactate (P zandra) [Moles/Vol] 0.5 mmol/L 0.4 - 2.0 mmol/L [facility] Comment on above: Result did not trigger repeat Lactate, re-order if needed. MAGNESIUMon 08-08-2024 Magnesium [Mass/Vol] 2.0 mg/dL Normal 1.8-2.6 [facility] Comment on above: Performed By: #### MARLON Payne BCA, , [address] #### [facility] ([id number]) [address], [address] [place] [address] Magnesiumon 08-08-2024 Magnesium [Mass/Vol] 2 mg/dL 1.8 - 2 .6 mg/dL [facility] No Panel Informationon 08-08 [facility] PHOSPHORUSon 08-08-2024 Phosphate [Mass/Vol] 4.0 mg/dL Normal 2.4-4.9 [facility] Comment on above: Performed By: #### Elmer PERALES, MARLON, , 2776-05 #### [facility] ([id number]) [address], [address] [place] [address] POCT ABG with NA, K, GLU, IC A and HCTon 08-08-2024 Arterial patency Wrist artery --pre arterial puncture Pass [facility] Base deficit (Bld) [Moles/Vol] 2 mmol/L [facility] Calcium.ionized (Bld) [Moles/Vol] 5 mg/dL 4.5 - 5.3 mg/dL [facility] CO2 (Bld) [Partial pressure] 44.8 mm[Hg] [facility] Glucose [Mass/Vol] 127 mg/dL High 65 - 99 mg/dL [facility] HCO3 (Bld) [Moles/Vol] 23.8 mmol/L [facility] Hematocrit (Bld) [Volume fraction] 23 % Low 35 - 47 % [facility] Interpretation and review of laboratory results Abnormal [facility] Oxygen (Bld) [Partial pressure] 93 mm[Hg] [facility] Oxygen therapy source and amount [CARE] NC [facility] Oxygen/Inspired gas setting [Volume Fraction] Ventilator 32 % [facility] pH (Bld) 7.333 [pH] Low 7.350 - 7.450 [facility] Potassium [Moles/Vol] 5.4 mmol/L High 3.5 - 5.0 mmol/L [facility] Sodium [Moles/Vol] 133 mmol/L Low 134 - 146 mmol/L [facility] Specimen site Narrative RRad [facility] Specimen type Nom (Spec) ARTERIAL [facility] POTASSIUMon 08-08-2024 Potassium [Moles/Vol] 5.5 mmol/L High 3.5-5.0 [facility] Comment on above: Performed By: #### C ANGELLA, FEPR, 2275-08, 2283-12, 2132-01 #### [facility] ([id number]) [address] [place] [address], [address] [place] [address] Phosphoruson 08-08-2024 Phosphate [Mass/Vol] 4 mg/dL 2.4 - 4 .9 mg/dL [facility] Potassiumon 08-08-2024 Potassium [Moles/Vol] 5.5 mmol/L High 3.5 - 5.0 mmol/L [facility] Potassium [Moles/Vol]on Interpretation and review of laboratory results Abnormal [facility] TSH WITH REFLEXon 08-08-2024 TSH 26.91 uIU/mL High 0.49-4.67 [facility] Comment on above: Performed By: #### C ANGELLA, FEPR, 2275-08, 2283-12, 2132-01 #### [facility] ([id number]) [address] [place] [address], [address] [place] [address] TSH with Reflexon 08-08-2024 Interpretation and review of laboratory results Abnormal [facility] TSH Qn 26.91 m[IU]/L High [facility] VITAMIN B12on 08-08-2024 Cobalamin (Vitamin B12) [Mass/Vol] 392 pg/mL Normal 180-914 [facility] Comment on above: Performed By: #### C BCA, FEPR, 2276-4, 2284-8, 2132-9 #### [facility] ([id number]) [address], [address] [place] [address] Vitamin B12on 08-08-2024 Cobalamin (Vitamin B12) [Mass/Vol] 392 pg/mL 180 - 914 pg/mL [facility] Glucose Glucometer (BldC) [M ass/Vol]on 08-07-2024 Glucose [Mass/Vol] 115 mg/dL High 65-99 [facility] HGBon 08-07-2024 Hematocrit (Bld) [Volume fraction] 26.4 % Low 35-47 [facility] Comment on above: Performed By: #### H H #### [facility] ([id number]) [address] [place] [address] Hemoglobin (Bld) [Mass/Vol] 8.9 g/dL Low 11.7-15.5 [facility] Comment on above: Performed By: #### H H #### [facility] ([id number]) [address] [place] [address] Hematocrit (Bld) [Volume fraction] 25.6 % Low 35-47 [facility] Comment on above: Performed By: #### P INR, 47958-5, CBCA, CMP #### [facility] ([id number]) [address] [place] [address]81 Hemoglobin (Bld) [Mass/Vol] 8.7 g/dL Low 11.7-15.5 [facility] Comment on above: Performed By: #### P INR, 02849-2, CBCA, CMP #### [facility] ([id number]) [address] [place] [address] Hematocrit (Bld) [Volume fraction] 22.7 % Low 35-47 [facility] Comment on above: Performed By: #### P INR, 48899-4, CBCA, CMP #### [facility] ([id number]) [address] [place] [address]1977 Hemoglobin (Bld) [Mass/Vol] 7.7 g/dL Low 11.7-15.5 [facility] Comment on above: Performed By: #### P INR, 06622-6, CBCA, CMP #### [facility] ([id number]) [address] [place] [address] 19211 PROTIME AND INRon 08-07-2024 INR Coag (PPP) [Relative time] 0.9 {INR} Normal 0.9-1.2 [facility] Comment on above: Performed By: #### P INR, 60579-1, CBCA, CMP #### [facility] ([id number]) [address] [place] [address] 40988 PT Coag (PPP) [Time] 10.6 s Normal 9.8-13.2 [facility] Comment on above: Result Comment: NEW REFERENCE RANGE Performed By: #### P INR, 35554-9, CBCA, CMP #### [facility] ([id number]) [address] [place] [address] 99383 aPTT Coag (PPP) [Time]on aPTT Coag (Bld) [Time] 25 s Low 26-37 [facility] Comment on above: Result Comment: NEW REFERENCE RANGE Performed By: #### P INR, 78501-0, CBCA, CMP #### [facility] ([id number]) [address] [place] [address] 62208 CBC AND AUTO DIFFon 08-07-19 25 ABSOLUTE BASOPHIL 0.1 X10E9/L Normal 0.0-0.2 [facility] Comment on above: Performed By: #### P INR, 65018-5, CBCA, CMP #### [facility] ([id number]) [address] [place] [address] 10349 ABSOLUTE NEUTROPHIL 4.5 X10E9/L Normal 1.5-6.6 [facility] Comment on above: Performed By: #### P INR, 70804-9, CBCA, CMP #### [facility] ([id number]) [address] [place] [address] 16969 Basophils/100 WBC (Bld) 0.9 % Normal [facility] Comment on above: Performed By: #### P INR, 43565-7, CBCA, CMP #### [facility] ([id number]) [address] [place] [address] 07642 Eosinophils (Bld) [#/Vol] 0.1 10*3/uL Normal 0.0-0.4 [facility] Comment on above: Performed By: #### P INR, 60613-1, CBCA, CMP #### [facility] ([id number]) [address] [place] [address] 73208 Eosinophils/100 WBC (Bld) 2.1 % Normal [facility] Comment on above: Performed By: #### P INR, 15857-1, CBCA, CMP #### [facility] ([id number]) [address] [place] [address]3755 Erythrocyte distribution width (RBC) [Ratio] 21.6 % High 11.5-15.0 [facility] Comment on above: Performed By: #### P INR, 00515-5, CBCA, CMP #### [facility] ([id number]) [address] [place] [address]288 Hematocrit (Bld) [Volume fraction] 17.8 % Low 35-47 [facility] Comment on above: Performed By: #### P INR, 10174-4, CBCA, CMP #### [facility] ([id number]) [address] [place] [address] 49775 Hemoglobin (Bld) [Mass/Vol] 5.9 g/dL Critically low 11.7-15.5 [facility] Comment on above: Performed By: #### P INR, 12462-3, CBCA, CMP #### [facility] ([id number]) [address] [place] [address] 64315 Lymphocytes (Bld) [#/Vol] 1.1 10*3/uL Normal 1.0-3.5 [facility] Comment on above: Performed By: #### P INR, 58558-8, CBCA, CMP #### [facility] ([id number]) [address] [place] [address] 35746 Lymphocytes/100 WBC (Bld) 18.3 % Normal [facility] Comment on above: Performed By: #### P INR, 93937-6, CBCA, CMP #### [facility] ([id number]) [address] [place] [address] 12399 MCH (RBC) [Entitic mass] 35.1 pg High 27-34 [facility] Comment on above: Performed By: #### P INR, 97697-7, CBCA, CMP #### [facility] ([id number]) [address] [place] [address] 90497 MCHC (RBC) [Mass/Vol] 33.1 g/dL Normal 32-36 [facility] Comment on above: Performed By: #### P INR, 75875-0, CBCA, CMP #### [facility] ([id number]) [address] [place] [address] 10599 MCV (RBC) [Entitic vol] 106 fL High 80-100 [facility] Comment on above: Performed By: #### P INR, 98763-0, CBCA, CMP #### [facility] ([id number]) [address] [place] [address] 18627 Monocytes (Bld) [#/Vol] 0.2 10*3/uL Normal 0-0.9 [facility] Comment on above: Performed By: #### P INR, 66387-9, CBCA, CMP #### [facility] ([id number]) [address] [place] [address] 12639 Monocytes/100 WBC (Bld) 4.1 % Normal [facility] Comment on above: Performed By: #### P INR, 27218-5, CBCA, CMP #### [facility] ([id number]) [address] [place] [address] 55210 Neutrophils/100 WBC (Bld) 74.6 % Normal [facility] Comment on above: Performed By: #### P INR, 12616-8, CBCA, CMP #### [facility] ([id number]) [address] [place] [address] 17882 Platelet mean volume (Bld) [Entitic vol] 9.4 fL Normal 7-12 [facility] Comment on above: Performed By: #### P INR, 09603-5, CBCA, CMP #### [facility] ([id number]) [address] [place] [address] 41084 Platelets (Bld) [#/Vol] 170 10*3/uL Normal 150-450 [facility] Comment on above: Performed By: #### P INR, 48883-1, CBCA, CMP #### [facility] ([id number]) [address] [place] [address] 20468 RBC COUNT 1.68 X10E12/L Low 3.80-5.20 [facility] Comment on above: Performed By: #### P INR, 18589-8, CBCA, CMP #### [facility] ([id number]) [address] [place] [address] 18385 WBC (Bld) [#/Vol] 6.0 10*3/uL Normal 4.0-11.0 [facility] Comment on above: Performed By: #### P INR, 65611-1, CBCA, CMP #### [facility] ([id number]) [address] [place] [address] 59923 COMPREHENSIVE METABOLIC PANE Juventino 08-06-2024 Albumin [Mass/Vol] 3.0 g/dL Low 3.2-5.3 [facility] Comment on above: Performed By: #### P INR, 63771-5, CBCA, CMP #### [facility] ([id number]) [address] [place] [address] 52005 ALP [Catalytic activity/Vol] 81 U/L Normal 39-130 [facility] Comment on above: Performed By: #### P INR, 12314-4, CBCA, CMP #### [facility] ([id number]) [address] [place] [address] 41073 ALT [Catalytic activity/Vol] 15 U/L Normal 0-31 [facility] Comment on above: Performed By: #### P INR, 66205-8, CBCA, CMP #### [facility] ([id number]) [address] [place] [address] 93789 Anion gap [Moles/Vol] 9 mmol/L Normal 5-15 [facility] Comment on above: Performed By: #### P INR, 90096-1, CBCA, CMP #### [facility] ([id number]) [address] [place] [address] 10265 AST [Catalytic activity/Vol] 16 U/L Normal 0-41 [facility] Comment on above: Performed By: #### P INR, 28951-5, CBCA, CMP #### [facility] ([id number]) [address] [place] [address] 25275 Bilirubin [Mass/Vol] 0.4 mg/dL Normal 0.3-1.2 [facility] Comment on above: Performed By: #### P INR, 15124-2, CBCA, CMP #### [facility] ([id number]) [address] [place] [address] 87618 Calcium [Mass/Vol] 8.1 mg/dL Low 8.5-10.5 [facility] Comment on above: Performed By: #### P INR, 18815-0, CBCA, CMP #### [facility] ([id number]) [address] [place] [address] 84441 Chloride [Moles/Vol] 97 mmol/L Low 98-109 [facility] Comment on above: Performed By: #### P INR, 97001-3, CBCA, CMP #### [facility] ([id number]) [address] [place] [address] 25342 CO2 [Moles/Vol] 26 mmol/L Normal 22-32 [facility] Comment on above: Performed By: #### P INR, 41322-7, CBCA, CMP #### [facility] ([id number]) [address] [place] [address] 31783 Creatinine [Mass/Vol] 3.86 mg/dL High 0.40-1.00 [facility] Comment on above: Result Comment: METH OD TRACEABLE TO IDMS STANDARD Performed By: #### P INR, 45398-3, CBCA, CMP #### [facility] ([id number]) [address] [place] [address] 81471 GFR/1.73 sq M.predicted among non-blacks MDRD (S/P/Bld) [Vol rate/Area] 12 mL/min/{1.73_m2} Low >59 [facility] Comment on above: Result Comment: Reported eGFR is based on the CKD-EPI 2020 equation that does not use a race coefficient. Performed By: #### P INR, 49410-9, CBCA, CMP #### [facility] ([id number]) [address] [place] [address] 45435 Glucose [Mass/Vol] 295 mg/dL High 65-99 [facility] Comment on above: Performed By: #### P INR, 24213-3, CBCA, CMP #### [facility] ([id number]) [address] [place] [address] 62344 Potassium [Moles/Vol] 4.5 mmol/L Normal 3.5-5.0 [facility] Comment on above: Performed By: #### P INR, 85976-5, CBCA, CMP #### [facility] ([id number]) [address] [place] [address] 18767 Protein [Mass/Vol] 6.0 g/dL Normal 6.0-8.0 [facility] Comment on above: Performed By: #### P INR, 98863-7, CBCA, CMP #### [facility] ([id number]) [address] [place] [address] 08312 Sodium [Moles/Vol] 132 mmol/L Low 134-146 [facility] Comment on above: Performed By: #### P INR, 92015-2, CBCA, CMP #### [facility] ([id number]) [address] [place] [address] 27270 Urea nitrogen [Mass/Vol] 45 mg/dL High 5-27 [facility] Comment on above: Performed By: #### P INR, 80302-3, CBCA, CMP #### [facility] ([id number]) [address] [place] [address] ABDOMEN AND PELVIS WO CON Ton 08-06-2024 CT ABDOMEN AND PELVIS WO CONT CT ABDOMEN AND PELVIS WO CONT EXAM: ABDOMEN AND PELVIS CT WITHOUT CONTRAST CLINICAL INFORMATION: gi bleeding and epigastric and chest pain. TECHNIQUE: Routine unenhanced CT of the abdomen and pelvis was performed utilizing 5 mm axial reconstructions. Coronal and sagittal reformatted images as were obtained and reviewed. Automated exposure control was utilized. COMPARISON: 12/06/2023 FINDINGS: The limited visualized lung bases demonstrates bibasilar atelectasis and/or scarring. Again seen are chronically atrophic kidneys. Calcifications within the renal sam are compatible with a vascular etiology. There are no convincing ureteral stones or evidence for collecting system dilatation in either kidney. Cysts in both kidneys are again noted. The gallbladder is absent. Stable appearance of bilateral adrenal nodules, suspected adenomas. The liver, spleen, and pancreas are unremarkable within the limitations of an unenhanced CT. There are no dilated loops of bowel or evidence for pneumatosis or free air. There is no significant free fluid. Again seen are very severe dense calcifications throughout a normal diameter abdominal aorta. 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 A densely calcified fibroid is again noted. IMPRESSION: 1. No convincing evidence for acute abnormalities in the abdomen and pelvis, within the limitations of an unenhanced CT. 2. Stable appearance of multiple chronic and incidental CT findings, as above. All CT scans at this facility use dose modulation, iterative reconstruction, and/or weight based dosing when appropriate to reduce radiation dose to as low as reasonably achievable. Finalized by Armando Milton MD on 08/06/2024 11:07 PM Normal [facility] JOHN FECAL OCCULT BLDon 08-06 Hemoglobin.gastrointe stinal Ql (Stl) Positive Abnormal NEG [facility] Comment on above: Performed By: #### P INR, 05974-4, CBCA, CMP #### [facility] ([id number]) [address] [place] [address]47 Natriuretic peptide B [Mass/ Vol]on 08-06-2024 Natriuretic peptide B (Bld) [Mass/Vol] 166 pg/mL High <100.0 [facility] Comment on above: Performed By: #### P INR, 77934-7, CBCA, CMP #### [facility] ([id number]) [address] [place] [address]173 Troponin I.cardiac High sens itivity method [Mass/Vol]on 08-06-2024 1 HOUR TROP I, HIGH SENSITIVITY 28 ng/L High <16 [facility] Comment on above: Result Comment: Elevations of hs-Troponin may be due to causes other than myocardial ischemia. Recommend serial hs-Troponin testing be performed. For the initial evaluation and management of chest pain patients, refer to the algorithms linked below. Emergency Patient: [email or web address] Inpatient: [email or web address] Performed By: #### P INR, 91813-5, CBCA, CMP #### [facility] ([id number]) [address] [place] [address]8770 TROPONIN I, HIGH SENSITIVITY 28 ng/L High <16 [facility] Comment on above: Result Comment: Elevations of hs-Troponin may be due to causes other than myocardial ischemia. Recommend serial hs-Troponin testing be performed. For the initial evaluation and management of chest pain patients, refer to the algorithms linked below. Emergency Patient: [email or web address] Inpatient: [email or web address] Performed By: #### P INR, 27475-8, CBCA, CMP #### [facility] ([id number]) [address] [place] [address]0726 XR CHEST 1 VWon 08-06-2024 XR CHEST 1 VW XR CHEST 1 VW Single view chest XR CHEST 1 VW History: chest pain Comparison: April 21, 2024 Impression: * No consolidation or pleural fluid. No acute findings. Finalized by Elias Nunn MD on 08/06/2024 9:46 PM Normal [facility] ALL BASIC METABOLIC PANELon 05-29-2024 Anion gap [Moles/Vol] 10.8 mmol/L NO [facility] Calcium [Mass/Vol] 8.8 mg/dL 8.5 - 10. 1 mg/dL [facility] Chloride [Moles/Vol] 103 mmol/L 98 - 10 7 mmol/L [facility] CO2 [Moles/Vol] 28.3 mmol/L 21.0 - 32.0 mmol/L [facility] Creatinine [Mass/Vol] 6.92 mg/dL Critically high 0.5 5 - 1.02 mg/dL [facility] Comment on above: RESULTS CALLED TO [facility] @BY Eliana Daley at 2355 GFR/1.73 sq M.predicted CKD-EPI (S/P/Bld) [Vol rate/Area] 7 Low >=60 mL/min/1.7 3m 2 [facility] Glucose [Mass/Vol] 195 mg/dL High 74 - 106 mg/dL [facility] Potassium [Moles/Vol] 4.1 mmol/L 3.5 - 5.1 mmol/L [facility] Sodium [Moles/Vol] 138 mmol/L 136 - 145 mmol/L [facility] TBH EGFR-NON AF INDIAN 6 Low >=60 mL/min/1.7 3m 2 [facility] Urea nitrogen [Mass/Vol] 55 mg/dL High 7.0 - 18.0 mg/dL [facility] Urea nitrogen/Creatinine [Mass ratio] 7.9 mg/mg [facility] ALL PRO BNPon 05-29-2024 NT PRO B TYPE NATRIURETIC PEPT 9664 pg/mL Critically high NINF - 900.0 pg/mL [facility] Comment on above: RESULTS CALLED TO [facility] @BY Eliana Daley at 2355 No Panel Informationon 05-29 Interpretation and review of laboratory results Abnormal [facility], [facility]on 04-23-20 Arterial patency Wrist artery --pre arterial puncture [facility] Base excess Calc (Bld) [Moles/Vol] 0 mmol/L [facility] CO2 (BldV) [Partial pressure] 65.7 mm[Hg] High [facility] HCO3 (Bld) [Moles/Vol] 28.9 mmol/L High [facility] Interpretation and review of laboratory results Abnormal [facility] Oxygen (BldV) [Partial pressure] 24 mm[Hg] Low [facility] Oxygen therapy source and amount [CARE] NC [facility] Oxygen/Inspired gas setting [Volume Fraction] Ventilator 28 % [facility] pH (BldV) 7.251 [pH] Low 7.320 - 7.420 [facility] SaO2% Calculated from oxygen partial pressure (BldV) [Mass fraction] 32 % Low 80.0 - PINF % [facility] Specimen site Narrative N/A [facility] Specimen type Nom (Spec) VENOUS [facility] CBC AND AUTO DIFFon 04-23-20 ABSOLUTE BASOPHIL 0.1 X10E9/L Normal 0.0-0.2 [facility] Comment on above: Performed By: #### H H #### [facility] ([id number]) [address] [place] [address] ABSOLUTE NEUTROPHIL 3.6 X10E9/L Normal 1.5-6.6 [facility] Comment on above: Performed By: #### H H #### [facility] ([id number]) [address] [place] [address] Anisocytosis Ql (Bld) 2+ Abnormal NONE [facility] Comment on above: Performed By: #### H H #### [facility] ([id number]) [address] [place] [address] Basophils/100 WBC (Bld) 1.0 % Normal [facility] Comment on above: Performed By: #### H H #### [facility] ([id number]) [address] [place] [address] Eosinophils (Bld) [#/Vol] 0.2 10*3/uL Normal 0.0-0.4 [facility] Comment on above: Performed By: #### H H #### [facility] ([id number]) [address] [place] [address] Eosinophils/100 WBC (Bld) 3.9 % Normal [facility] Comment on above: Performed By: #### H H #### [facility] ([id number]) [address] [place] [address] Erythrocyte distribution width (RBC) [Ratio] 22.5 % High 11.5-15.0 [facility] Comment on above: Performed By: #### H H #### [facility] ([id number]) [address] [place] [address] Hematocrit (Bld) [Volume fraction] 38.0 % Normal 35-47 [facility] Comment on above: Performed By: #### H H #### [facility] ([id number]) [address] [place] [address] Hemoglobin (Bld) [Mass/Vol] 11.9 g/dL Normal 11.7-15.5 [facility] Comment on above: Performed By: #### H H #### [facility] ([id number]) [address] [place] [address] Lymphocytes (Bld) [#/Vol] 1.5 10*3/uL Normal 1.0-3.5 [facility] Comment on above: Performed By: #### H H #### [facility] ([id number]) [address] [place] [address] Lymphocytes/100 WBC (Bld) 26.7 % Normal [facility] Comment on above: Performed By: #### H H #### [facility] ([id number]) [address] [place] [address] MCH (RBC) [Entitic mass] 30.4 pg Normal 27-34 [facility] Comment on above: Performed By: #### H H #### [facility] ([id number]) [address] [place] [address] MCHC (RBC) [Mass/Vol] 31.4 g/dL Low 32-36 [facility] Comment on above: Performed By: #### H H #### [facility] ([id number]) [address] [place] [address] MCV (RBC) [Entitic vol] 97 fL Normal 80-100 [facility] Comment on above: Performed By: #### H H #### [facility] ([id number]) [address] [place] [address] Monocytes (Bld) [#/Vol] 0.3 10*3/uL Normal 0-0.9 [facility] Comment on above: Performed By: #### H H #### [facility] ([id number]) [facility] [place] [address] Monocytes/100 WBC (Bld) 5.3 % Normal [facility] Comment on above: Performed By: #### H H #### [facility] ([id number]) [facility] [place] [address] Neutrophils/100 WBC (Bld) 63.1 % Normal [facility] Comment on above: Performed By: #### H H #### [facility] ([id number]) [address] [place] [address] Platelet mean volume (Bld) [Entitic vol] 9.7 fL Normal 7-12 [facility] Comment on above: Performed By: #### H H #### [facility] ([id number]) [facility] [place] [address] Platelets (Bld) [#/Vol] 131 10*3/uL Low 150-450 [facility] Comment on above: Performed By: #### H H #### [facility] ([id number]) [address] [place] [address] RBC COUNT 3.93 X10E12/L Normal 3.80-5.20 [facility] Comment on above: Performed By: #### H H #### [facility] ([id number]) [address] [place] [address] WBC (Bld) [#/Vol] 5.8 10*3/uL Normal 4.0-11.0 [facility] Comment on above: Performed By: #### H H #### [facility] ([id number]) [address] [place] [address] CBC auto differentialon 04-02 Anisocytosis Ql (Bld) 2+ Abnormal NONE^NONE [facility] Basophils (Bld) [#/Vol] 0.1 10*3/uL [facility] Basophils/100 WBC (Bld) 1 % [facility] Eosinophils (Bld) [#/Vol] 0.2 10*3/uL [facility] Eosinophils/100 WBC (Bld) 3.9 % [facility] Erythrocyte distribution width (RBC) [Ratio] 22.5 % High 11.5 - 15.0 % [facility] Hematocrit (Bld) [Volume fraction] 38 % 35 - 47 % [facility] Hemoglobin (Bld) [Mass/Vol] 11.9 g/dL 11.7 - 15.5 g/dL [facility] Interpretation and review of laboratory results Abnormal [facility] Lymphocytes (Bld) [#/Vol] 1.5 10*3/uL [facility] Lymphocytes/100 WBC (Bld) 26.7 % [facility] MCH (RBC) [Entitic mass] 30.4 pg 27 - 34 pg [facility] MCHC (RBC) [Mass/Vol] 31.4 g/dL Low 32 - 3 6 g/dL [facility] MCV (RBC) [Entitic vol] 97 fL 80 - 100 fL [facility] Monocytes (Bld) [#/Vol] 0.3 10*3/uL [facility] Monocytes/100 WBC (Bld) 5.3 % [facility] Neutrophils (Bld) [#/Vol] 3.6 10*3/uL [facility] Neutrophils/100 WBC (Bld) 63.1 % [facility] Platelet mean volume (Bld) [Entitic vol] 9.7 fL 7 - 12 fL [facility] Platelets (Bld) [#/Vol] 131 10*3/uL Low [facility] RBC (Bld) [#/Vol] 3.93 10*6/uL [facility] WBC corrected for nucl RBC Auto (Bld) [#/Vol] 5.8 [facility] COMPREHENSIVE METABOLIC PANE Juventino 04-23-2024 Albumin [Mass/Vol] 3.1 g/dL Low 3.2-5.3 [facility] Comment on above: Performed By: #### H H #### [facility] ([id number]) [address] [place] [address] ALP [Catalytic activity/Vol] 88 U/L Normal 39-130 [facility] Comment on above: Performed By: #### H H #### [facility] ([id number]) [address] [place] [address] ALT [Catalytic activity/Vol] 17 U/L Normal 0-31 [facility] Comment on above: Performed By: #### H H #### [facility] ([id number]) [address] [place] [address] Anion gap [Moles/Vol] 6 mmol/L Normal 5-15 [facility] Comment on above: Performed By: #### H H #### [facility] ([id number]) [address] [place] [address] AST [Catalytic activity/Vol] 21 U/L Normal 0-41 [facility] Comment on above: Performed By: #### H H #### [facility] ([id number]) [address] [place] [address] Bilirubin [Mass/Vol] 0.5 mg/dL Normal 0.3-1.2 [facility] Comment on above: Performed By: #### H H #### [facility] ([id number]) [address] [place] [address] Calcium [Mass/Vol] 8.4 mg/dL Low 8.5-10.5 [facility] Comment on above: Performed By: #### H H #### [facility] ([id number]) [address] [place] [address] Chloride [Moles/Vol] 99 mmol/L Normal 98-109 [facility] Comment on above: Performed By: #### H H #### [facility] ([id number]) [address] [place] [address] CO2 [Moles/Vol] 25 mmol/L Normal 22-32 [facility] Comment on above: Performed By: #### H H #### [facility] ([id number]) [address] [place] [address] Creatinine [Mass/Vol] 3.61 mg/dL High 0.40-1.00 [facility] Comment on above: Result Comment: METH OD TRACEABLE TO IDMS STANDARD Performed By: #### H H #### [facility] ([id number]) [address] [place] [address] GFR/1.73 sq M.predicted among non-blacks MDRD (S/P/Bld) [Vol rate/Area] 13 mL/min/{1.73_m2} Low >59 [facility] Comment on above: Result Comment: Reported eGFR is based on the CKD-EPI 2021 equation that does not use a race coefficient. Performed By: #### H H #### [facility] ([id number]) [address] [place] [address] Glucose [Mass/Vol] 192 mg/dL High 65-99 [facility] Comment on above: Performed By: #### H H #### [facility] ([id number]) [address] [place] [address] Potassium [Moles/Vol] 4.3 mmol/L Normal 3.5-5.0 [facility] Comment on above: Performed By: #### H H #### [facility] ([id number]) [address] [place] [address] Protein [Mass/Vol] 6.2 g/dL Normal 6.0-8.0 [facility] Comment on above: Performed By: #### H H #### [facility] ([id number]) [address] [place] [address] Sodium [Moles/Vol] 130 mmol/L Low 134-146 [facility] Comment on above: Performed By: #### H H #### [facility] ([id number]) [address] [place] [address] Urea nitrogen [Mass/Vol] 29 mg/dL High 5-27 [facility] Comment on above: Performed By: #### H H #### [facility] ([id number]) [address] [place] [address] Cardiac echo study Procedure Ordered By: Rd Soria on 04-23-2024 Aortic root 3.2 cm [employer] Work Phone: AV mean gradient 4 mmHg [employer] Work Phone: AV peak gradient 7.08 mmHg [employer] Work Phone: AV peak garrett 133 cm/s [employer] Work Phone: AV valve area 2.35 [employer] Work Phone: AV Velocity Ratio 0.68 [employer] Work Phone: AV VTI 33.5 cm [employer] Work Phone: E wave deceleration time 333 msec [employer] Work Phone: E/A ratio 0.83 [employer] Work Phone: Echo EF Estimated 60 % [employer] Work Phone: EF 60 % [employer] Work Phone: Energy loss index 16.48 [employer] Work Phone: FS 34 % 28 - 44 % [employer] Work Phone: Interventricular Septum Diastolic Thickness by 2D 16 cm [employer] Work Phone: IVS 1.6 cm 0.6 - 1.1 cm [employer] Work Phone: LA size 4.3 cm [employer] Work Phone: LA volume 46.9 cm3 [employer] Work Phone: LA Volume Index 23 mL/m2 [employer] Work Phone: Left Ventricle Mass [id number] g [employer] Work Phone: LV Diastolic Volume 134 mL [facility] Work Phone: LV ESV A2C 63.4 mL [facility] Work Phone: LV ESV A4C 34.6 mL [facility] Work Phone: LV RWT 2D 77.[address] [facility] Work Phone: LV Systolic Volume 54.[address] [facility] [email or web address] LLC Work Phone: LVIDd 4.4 cm 5.22 - 7.25 cm [employer] Work Phone: LVIDs 2.9 cm 3.06 - 4.[address] [facility] Hospital[facility] Work Phone: LVOT diameter 2.1 cm [employer] Work Phone: LVOT peak garrett 0.81 m/s [facility] Work Phone: LVOT peak VTI 22.7 cm [employer] Work Phone: LVOT stroke volume 78.[address] [facility] [email or web address].[facility] LLC Work Phone: Mitral Valve Max Velocity 1.52 cm/s [facility] HospitalC[facility] Work Phone: MV mean gradient [address] [facility] HospitalAl[facility] Work Phone: MV Peak A Garrett 127 cm/s [facility] HospitalC[facility] Work Phone: MV Peak E Garrett 105 cm/s [facility] Work Phone: MV peak gradient 9.[address] [facility] [address] [facility] Hospitalagreement24 [employer] Work Phone: MV TDI E' (medial) 5 cm/s [employer] Work Phone: MV valve area by continuity eq 1.92 [employer] Work Phone: MV VTI 41 cm [employer] Work Phone: PW 1.7 cm 0.6 - 1.1 cm [employer] Work Phone: RA area 23.3 cm2 [employer] Work Phone: RV diastolic dimension (basal) 40 mm [employer] Work Phone: RV Peak Systolic Pressure 27 mmHg [employer] Work Phone: TAPSE 1.7 cm [employer] Work Phone: TDI 6.37 cm/s [employer] Work Phone: TR peak gradient 24 mmHg [employer] Work Phone: TR Peak Garrett 2.4 m/s [employer] Work Phone: Valve area - Index 1.1 [employer] Work Phone: ZLVIDD -3.35 [employer] Work Phone: ZLVIDS -2.07 [employer] Work Phone: [employer] Work Phone: Cardiac echo study Procedure on 04-23-2024 The left ventricle appears normal in size. Severely increased LV wall thickness No obvious wall motion abnormality noted Normal LV systolic function, ejection fraction 55-60% Grade 1 LV diastolic dysfunction The right ventricle appears normal in size and function The left and right atrium appears normal in size The aortic valve was not well visualized no obvious, regurgitation or stenosis The mitral valve leaflet appears thickened, posterior mitral valve leaflet mobility is severely reduced As per Doppler study mean gradient 4 mm of mercury suggestive of mild mitral stenosis per the left atrium does not appear enlarged There was trace mitral regurgitation Trace tricuspid regurgitation no stenosis Right ventricular systolic pressure 27 mm of mercury Trace pulmonary regurgitation no stenosis Normal aortic root dimension The IVC appears normal in size, normal respiratory variation No significant pericardial effusion seen Left Ventricle Left ventricle appears normal in size. There is severe concentric increased wall thickness/hypertrophy. Systolic function is normal with an ejection fraction of 55-60%. The quantitative EF by 2D Roche biplane is 60%. No segmental wall motion abnormalities. Grade I diastolic dysfunction (impaired relaxation) is present. Lateral E' is 6.37 cm/s. Medial E' is 5.00 cm/s. Right Ventricle Right ventricular size appears normal. The right ventricular basal diameter is 40.0 mm. Systolic function is normal. Normal tricuspid annular plane systolic excursion. Normal systolic excursion velocity by TDI (>9.5 cm/s). Left Atrium Left atrium is normal in size. The left atrial volume index is 23.0 mL/m2. Right Atrium Right atrium is mildly dilated. The right atrial area is 23.3 cm2. IVC/SVC IVC appears normal. Mitral Valve The posterior mitral valve leaflet is calcified. There is trace regurgitation. There is mild stenosis. The mean gradient is 4.00 mmHg. The peak gradient is 9.24 mmHg. Tricuspid Valve Tricuspid valve appears to be normal. There is trace to mild regurgitation. There is no evidence of tricuspid valve stenosis. The right ventricular systolic pressure normal. RVSP calculated at 27 mmHg. Aortic Valve The aortic valve was not well visualized. Probable trileaflet aortic valve. There is no regurgitation or stenosis. Pulmonic Valve Pulmonic valve structure is grossly normal. There is trace regurgitation. There is no evidence of pulmonic valve stenosis. Ascending Aorta The aortic root is normal in size. Pericardium The pericardium has a fat pad. Study Details A complete echo was performed using complete 2D, color flow Doppler and spectral Doppler. Definity study was performed. The study had technical difficulties. Wall Scoring Baseline Score Index: 1.00 The left ventricular wall motion is normal. [facility] Radiology Study observation (narrative) [facility] Comprehensive metabolic pane juventino 04-23-2024 Albumin [Mass/Vol] 3.1 g/dL Low 3.2 - 5.3 g/dL [facility] ALP [Catalytic activity/Vol] 88 U/L 39 - 130 U/L [facility] ALT No additional P-5'-P [Catalytic activity/Vol] 17 U/L 0 - 31 U/L [facility] Anion gap [Moles/Vol] 6 mmol/L 5 - 15 mmol/L [facility] AST [Catalytic activity/Vol] 21 U/L 0 - 41 U/L [facility] Bilirubin [Mass/Vol] 0.5 mg/dL 0.3 - 1 .2 mg/dL [facility] Calcium [Mass/Vol] 8.4 mg/dL Low 8.5 - 10. 5 mg/dL [facility] Chloride [Moles/Vol] 99 mmol/L 98 - 10 9 mmol/L [facility] CO2 [Moles/Vol] 25 mmol/L 22 - 32 mmol/L [facility] Creatinine [Mass/Vol] 3.61 mg/dL High 0.40 - 1.00 mg/dL [facility] Comment on above: [facility] eGFR (CKD-EPI)non-race dependent 13 Low - PINF [facility] Comment on above: Reported eGFR is based on the CKD-EPI 2020 equation that does not use a race coefficient. Glucose [Mass/Vol] 192 mg/dL High 65 - 99 mg/dL [facility] Interpretation and review of laboratory results Abnormal [facility] Potassium [Moles/Vol] 4.3 mmol/L 3.5 - 5.0 mmol/L [facility] Protein [Mass/Vol] 6.2 g/dL 6.0 - 8.0 g/dL [facility] Sodium [Moles/Vol] 130 mmol/L Low 134 - 146 mmol/L [facility] Urea nitrogen [Mass/Vol] 29 mg/dL High 5 - 27 mg/dL [facility] Glucose Glucometer (BldC) [M ass/Vol]on 04-23-2024 Glucose [Mass/Vol] 273 mg/dL High 65 - 99 mg/dL [facility] Interpretation and review of laboratory results Abnormal [facility] Glucose [Mass/Vol] 273 mg/dL High 65-99 [facility] Glucose [Mass/Vol] 257 mg/dL High 65 - 99 mg/dL [facility] Interpretation and review of laboratory results Abnormal [facility] Glucose [Mass/Vol] 257 mg/dL High 65-99 [facility] Glucose [Mass/Vol] 167 mg/dL High 65 - 99 mg/dL [facility] Interpretation and review of laboratory results Abnormal [facility] Glucose [Mass/Vol] 167 mg/dL High 65-99 [facility] MAGNESIUMon 04-23-2024 Magnesium [Mass/Vol] 1.9 mg/dL Normal 1.8-2.6 [facility] Comment on above: Performed By: #### H H #### [facility] ([id number]) [address] [facility] [place] [address] Magnesiumon 04-23-2024 Magnesium [Mass/Vol] 1.9 mg/dL 1.8 - 2 .6 mg/dL [facility] No Panel Informationon 04-23 [facility] VENOUS BLOOD GASon JANI'S TEST Normal [facility] Comment on above: Performed By: #### C ANGELLA [facility], #### [facility] ([id number]) [address] [place] [address] Base excess Calc (Bld) [Moles/Vol] 0.0 mmol/L Normal 0.0-2.0 [facility] Comment on above: Performed By: #### C ANGELLA [facility], 14178-8 #### [facility] ([id number]) [address] [place] [address] Body temperature 98.6 [degF] Normal 37.0 [facility] Comment on above: Performed By: #### C ANGELLA [facility], 76643-7 #### [facility] ([id number]) [address] [place] [address] HCO3 (Bld) [Moles/Vol] 28.9 mmol/L High 20.0-24.0 [facility] Comment on above: Performed By: #### C ANGELLA [facility], 82402-1 #### [facility] ([id number]) [address] [place] [address] INSP. O2 CONC. 28 % Normal [facility] Comment on above: Performed By: #### C ANGELLA [facility], #### [facility] ([id number]) [address] [place] [address] Oxygen saturation in Blood 32.0 % Low >80.0 [facility] Comment on above: Performed By: #### C ANGELLA [facility], #### [facility] ([id number]) [address] [place] [address] OXYGEN SOURCE NC Normal [facility] Comment on above: Performed By: #### C ANGELLA [facility], #### [facility] ([id number]) [address] [place] [address] PCO2, VENOUS 65.7 MMHG High 35-50 [facility] Comment on above: Performed By: #### C ANGELLA [facility], #### [facility] ([id number]) [address] [place] [address] PH, VENOUS 7.251 Low 7.320-7.42 0 [facility] Comment on above: Performed By: #### C ANGELLA [facility], #### [facility] ([id number]) [address] [place] [address] PO2, VENOUS 24 MMHG Low 30-50 [facility] Comment on above: Performed By: #### C ANGELLA [facility], #### [facility] ([id number]) [address] [place] [address] SAMPLE SITE N/A Normal [facility] Comment on above: Performed By: #### C ANGELLA [facility], #### [facility] ([id number]) [address] [place] [address] SAMPLE TYPE VENOUS Normal [facility] Comment on above: Performed By: #### C ANGELLA [facility], #### [facility] ([id number]) [address] [place] [address] CBC AND AUTO DIFFon 12-22-20 24 ABSOLUTE BASOPHIL 0.1 X10E9/L Normal 0.0-0.2 [facility] Comment on above: Performed By: #### C BCA, CMP, ####[facility] ([id number])[address] [place] [address]#### 5196-1 ####[facility] ([id number])[address], [address] [place] [address] ABSOLUTE NEUTROPHIL 3.6 X10E9/L Normal 1.5-6.6 [facility] Comment on above: Performed By: #### C BCA, CMP, ####[facility] ([id number])[address] [place] [address]#### 5196-1 ####[facility] ([id number])[address], [address] [place] [address] Basophils/100 WBC (Bld) 1.0 % Normal [facility] Comment on above: Performed By: #### C BCA, CMP, ####[facility] ([id number])[address] [place] [address]#### 5196-1 ####[facility] ([id number])[address] [place] [address] Eosinophils (Bld) [#/Vol] 0.3 10*3/uL Normal 0.0-0.4 [facility] Comment on above: Performed By: #### C BCA, CMP, ####[facility] ([id number])[address] [place] [address]#### 5196-1 ####[facility] ([id number])[address], [address] [address] Eosinophils/100 WBC (Bld) 4.4 % Normal [facility] Comment on above: Performed By: #### C BCA, CMP, ####[facility] ([id number])[address] [place] [address]#### 5196-1 ####[facility] ([id number])[address], [address] [address] Erythrocyte distribution width (RBC) [Ratio] 22.0 % High 11.5-15.0 [facility] Comment on above: Performed By: #### C ANGELLA, [facility], ####[facility] ([id number])[address] [place] [address]#### 5196-1 ####[facility] ([id number])[address], [address] [address] Hematocrit (Bld) [Volume fraction] 36.6 % Normal 35-47 [facility] Comment on above: Performed By: #### C ANGELLA, [facility], ####[facility] ([id number])[address] [place] [address]#### 5196-1 ####[facility] ([id number])[address], [address] [address] Hemoglobin (Bld) [Mass/Vol] 11.7 g/dL Normal 11.7-15.5 [facility] Comment on above: Performed By: #### Elmer BCA, [facility], ####[facility] ([id number])[address] [place] [address]#### 5196-1 ####[facility] ([id number])[address] [address] [address] Lymphocytes (Bld) [#/Vol] 2.0 10*3/uL Normal 1.0-3.5 [facility] Comment on above: Performed By: #### C ANGELLA, [facility], ####[facility] ([id number])[address] [place] [address]#### 5196-1 ####[facility] ([id number])[address], [address] [address] Lymphocytes/100 WBC (Bld) 32.4 % Normal [facility] Comment on above: Performed By: #### Elmer PERALES, CMP, ####[facility] ([id number])[address] [place] [address]#### 5196-1 ####[facility] ([id number])[address], [address] [address] MCH (RBC) [Entitic mass] 30.4 pg Normal 27-34 [facility] Comment on above: Performed By: #### Elmer BCA, CMP, ####[facility] ([id number])[address] [place] [address]#### 5196-1 ####[facility] ([id number])[address], [address] [address] MCHC (RBC) [Mass/Vol] 31.9 g/dL Low 32-36 [facility] Comment on above: Performed By: #### Elmer PERALES, CMP, ####[facility] ([id number])[address] [place] [address]#### 5196-1 ####[facility] ([id number])[address] [address] [address] MCV (RBC) [Entitic vol] 95 fL Normal 80-100 [facility] Comment on above: Performed By: #### Elmer BCA, CMP, ####[facility] ([id number])[address] [place] [address]#### 5196-1 ####[facility] ([id number])[address], [address] [address] Monocytes (Bld) [#/Vol] 0.3 10*3/uL Normal 0-0.9 [facility] Comment on above: Performed By: #### C BCA, CMP, ####[facility] ([id number])[address] [place] [address]#### 5196-1 ####[facility] ([id number])[address], [place] [address] Monocytes/100 WBC (Bld) 5.3 % Normal [facility] Comment on above: Performed By: #### C BCA, [facility], ####[facility] ([id number])[address] [place] [address]#### 5196-1 ####[facility] ([id number])[address], [address], [place] [address] Neutrophils/100 WBC (Bld) 56.9 % Normal [facility] Comment on above: Performed By: #### C BCA, [facility], ####[facility] ([id number])[address] [place] [address]#### 5196-1 ####[facility] ([id number])[address], [address], [place] [address] Platelet mean volume (Bld) [Entitic vol] 8.8 fL Normal 7-12 [facility] Comment on above: Performed By: #### C BCA, [facility], ####[facility] ([id number])[address] [place] [address]#### 5196-1 ####[facility] ([id number])[address], [address], [place] [address] Platelets (Bld) [#/Vol] 135 10*3/uL Low 150-450 [facility] Comment on above: Performed By: #### C BCA, CMP, ####[facility] ([id number])[address] [place] [address]#### 5196-1 ####[facility] ([id number])[address] [facility], [address] [place] [address] RBC COUNT 3.84 X10E12/L Normal 3.80-5.20 [facility] Comment on above: Performed By: #### C ANGELLA [facility], 69024-2 ####[facility] ([id number])[address] [place] [address]#### 5196-1 ####[facility] ([id number])[address] [facility], [address] [place] [address] WBC (Bld) [#/Vol] 6.3 10*3/uL Normal 4.0-11.0 [facility] Comment on above: Performed By: #### C ANGELLA [facility], 60000-4 ####[facility] ([id number])[address] [place] [address]#### 5196-1 ####[facility] ([id number])[address] [facility], [address] [place] [address] CBC auto differentialon 04-02 Basophils (Bld) [#/Vol] 0.1 10*3/uL [facility] Basophils/100 WBC (Bld) 1 % [facility] Eosinophils (Bld) [#/Vol] 0.3 10*3/uL [facility] Eosinophils/100 WBC (Bld) 4.4 % [facility] Erythrocyte distribution width (RBC) [Ratio] 22 % High 11.5 - 15.0 % [facility] Hematocrit (Bld) [Volume fraction] 36.6 % 35 - 47 % [facility] Hemoglobin (Bld) [Mass/Vol] 11.7 g/dL 11.7 - 15.5 g/dL [facility] Interpretation and review of laboratory results Abnormal [facility] Lymphocytes (Bld) [#/Vol] 2 10*3/uL [facility] Lymphocytes/100 WBC (Bld) 32.4 % [facility] MCH (RBC) [Entitic mass] 30.4 pg 27 - 34 pg [facility] MCHC (RBC) [Mass/Vol] 31.9 g/dL Low 32 - 3 6 g/dL [facility] MCV (RBC) [Entitic vol] 95 fL 80 - 100 fL [facility] Monocytes (Bld) [#/Vol] 0.3 10*3/uL [facility] Monocytes/100 WBC (Bld) 5.3 % [facility] Neutrophils (Bld) [#/Vol] 3.6 10*3/uL [facility] Neutrophils/100 WBC (Bld) 56.9 % [facility] Platelet mean volume (Bld) [Entitic vol] 8.8 fL 7 - 12 fL [facility] Platelets (Bld) [#/Vol] 135 10*3/uL Low [facility] RBC (Bld) [#/Vol] 3.84 10*6/uL [facility] WBC corrected for nucl RBC Auto (Bld) [#/Vol] 6.3 [facility] COMPREHENSIVE METABOLIC PANE Juventino 04-22-2024 Albumin [Mass/Vol] 3.2 g/dL Normal 3.2-5.3 [facility] Comment on above: Performed By: #### C BCA, CMP, ####[facility] ([id number])[address] [place] [address]#### 5196-1 ####[facility] ([id number])[address], [address] [place] [address] ALP [Catalytic activity/Vol] 86 U/L Normal 39-130 [facility] Comment on above: Performed By: #### C BCA, CMP, 89149-7 ####[facility] ([id number])[address] [place] [address]#### 5196-1 ####[facility] ([id number])[address] [facility], [address] [place] [address] ALT [Catalytic activity/Vol] 15 U/L Normal 0-31 [facility] Comment on above: Performed By: #### C BCA, CMP, ####[facility] ([id number])[address] [place] [address]#### 5196-1 ####[facility] ([id number])[address], [address], [place] [address] Anion gap [Moles/Vol] 8 mmol/L Normal 5-15 [facility] Comment on above: Performed By: #### C BCA, [facility], ####[facility] ([id number])[address] [place] [address]#### 5196-1 ####[facility] ([id number])[address], [address], [place] [address] AST [Catalytic activity/Vol] 15 U/L Normal 0-41 [facility] Comment on above: Performed By: #### C BCA, [facility], ####[facility] ([id number])[address] [place] [address]#### 5196-1 ####[facility] ([id number])[address], [address], [place] [address] Bilirubin [Mass/Vol] 0.7 mg/dL Normal 0.3-1.2 [facility] Comment on above: Performed By: #### C BCA, CMP, ####[facility] ([id number])[address] [place] [address]#### 5196-1 ####[facility] ([id number])[address], [address] [place] [address] Calcium [Mass/Vol] 8.7 mg/dL Normal 8.5-10.5 [facility] Comment on above: Performed By: #### C BCA, CMP, ####[facility] ([id number])[address] [place] [address]#### 5196-1 ####[facility] ([id number])[address], [address] [address] Chloride [Moles/Vol] 96 mmol/L Low 98-109 [facility] Comment on above: Performed By: #### C ANGELLA [facility], ####[facility] ([id number])[address] [place] [address]#### 5196-1 ####[facility] ([id number])[address], [address] [address] CO2 [Moles/Vol] 26 mmol/L Normal 22-32 [facility] Comment on above: Performed By: #### C ANGELLA [facility], ####[facility] ([id number])[address] [place] [address]#### 5196-1 ####[facility] ([id number])[address], [address] [place] [address] Creatinine [Mass/Vol] 4.84 mg/dL High 0.40-1.00 [facility] Comment on above: Result Comment: METH OD TRACEABLE TO IDMS STANDARD Performed By: #### C ANGELLA [facility], ####[facility] ([id number])[address] [place] [address]#### 5196-1 ####[facility] ([id number])[address] [address] [place] [address] GFR/1.73 sq M.predicted among non-blacks MDRD (S/P/Bld) [Vol rate/Area] 9 mL/min/{1.73_m2} Low >59 [facility] Comment on above: Result Comment: Reported eGFR is based on the CKD-EPI 2020 equation that does not use a race coefficient. Performed By: #### C BCA, CMP, ####[facility] ([id number])[address] [place] [address]#### 5196-1 ####[facility] ([id number])[address], [place] [address] Glucose [Mass/Vol] 168 mg/dL High 65-99 [facility] Comment on above: Performed By: #### C BCA, [facility], ####[facility] ([id number])[address] [place] [address]#### 5196-1 ####[facility] ([id number])[address], [place] [address] Potassium [Moles/Vol] 5.0 mmol/L Normal 3.5-5.0 [facility] Comment on above: Performed By: #### C BCA, [facility], ####[facility] ([id number])[address] [place] [address]#### 5196-1 ####[facility] ([id number])[address], [place] [address] Protein [Mass/Vol] 6.3 g/dL Normal 6.0-8.0 [facility] Comment on above: Performed By: #### C ANGELLA, [facility], ####[facility] ([id number])[address] [place] [address]#### 5196-1 ####[facility] ([id number])[address], [place] [address] Sodium [Moles/Vol] 130 mmol/L Low 134-146 [facility] Comment on above: Performed By: #### C BCA, [facility], ####[facility] ([id number])[address] [place] [address]#### 5196-1 ####[facility] ([id number])[address], [place] [address] Urea nitrogen [Mass/Vol] 43 mg/dL High 5-27 [facility] Comment on above: Performed By: #### C BCA, CMP, 11423-1 ####[facility] ([id number])[address] [place] [address]#### 5196-1 ####[facility] ([id number])[address] [facility], [address] [address] Comprehensive metabolic pane juventino 04-22-2024 Albumin [Mass/Vol] 3.2 g/dL 3.2 - 5.3 g/dL [facility] ALP [Catalytic activity/Vol] 86 U/L 39 - 130 U/L [facility] ALT No additional P-5'-P [Catalytic activity/Vol] 15 U/L 0 - 31 U/L [facility] Anion gap [Moles/Vol] 8 mmol/L 5 - 15 mmol/L [facility] AST [Catalytic activity/Vol] 15 U/L 0 - 41 U/L [facility] Bilirubin [Mass/Vol] 0.7 mg/dL 0.3 - 1 .2 mg/dL [facility] Calcium [Mass/Vol] 8.7 mg/dL 8.5 - 10. 5 mg/dL [facility] Chloride [Moles/Vol] 96 mmol/L Low 98 - 10 9 mmol/L [facility] CO2 [Moles/Vol] 26 mmol/L 22 - 32 mmol/L [facility] Creatinine [Mass/Vol] 4.84 mg/dL High 0.40 - 1.00 mg/dL [facility] Comment on above: METHOD TRACEABLE TO IDIN STANDARD eGFR (CKD-EPI)non-race dependent 9 Low - PINF [facility] Comment on above: Reported eGFR is based on the CKD-EPI 2020 equation that does not use a race coefficient. Glucose [Mass/Vol] 168 mg/dL High 65 - 99 mg/dL [facility] Interpretation and review of laboratory results Abnormal [facility] Potassium [Moles/Vol] 5 mmol/L 3.5 - 5.0 mmol/L [facility] Protein [Mass/Vol] 6.3 g/dL 6.0 - 8.0 g/dL [facility] Sodium [Moles/Vol] 130 mmol/L Low 134 - 146 mmol/L [facility] Urea nitrogen [Mass/Vol] 43 mg/dL High 5 - 27 mg/dL [facility] Glucose Glucometer (BldC) [M ass/Vol]on 04-22-2024 Glucose [Mass/Vol] 227 mg/dL High 65 - 99 mg/dL [facility] Interpretation and review of laboratory results Abnormal [facility] Glucose [Mass/Vol] 227 mg/dL High 65-99 [facility] Glucose [Mass/Vol] 177 mg/dL High 65 - 99 mg/dL [facility] Interpretation and review of laboratory results Abnormal [facility] Glucose [Mass/Vol] 177 mg/dL High 65-99 [facility] Glucose [Mass/Vol] 206 mg/dL High 65 - 99 mg/dL [facility] Interpretation and review of laboratory results Abnormal [facility] Glucose [Mass/Vol] 206 mg/dL High 65-99 [facility] Glucose [Mass/Vol] 157 mg/dL High 65 - 99 mg/dL [facility] Interpretation and review of laboratory results Abnormal [facility] Glucose [Mass/Vol] 157 mg/dL High 65-99 [facility] HBV surface Ag IA Qlon 04-22 [facility] HEPATITIS B SURF AG Non-Reactive Normal NRCT [facility] Comment on above: Result Comment: NEW TEST METHOD Performed By: #### H H #### [facility] ([id number]) [address] [place] [address] Hemodialysis / Ultrafiltatio n - TABLOon 04-22-2024 Arianna De Jesus RN 04/22/2024 5:50 PM 3.5hr dialysis treatment completed. Tolerated well. System clotted x1 w/ 1hr remaining. Would benefit from some heparin during tx. No meds w/ tx. AVF working fair, max BFR 350-380. Higher venous pressures & audible whirring sound at proximal fistula Post wt: 100.7kg Fluid removed: 2.3kg per bedscale, 2L per machine Post BP:174/58 Report off to primary RN Yomaira [facility] Hepatitis B surface antigeno n 04-22-2024 HBV surface Ag IA Ql Non-Reactive Non-Leland cti ve^Non-Fatoumata ctive [facility] Comment on above: NEW TEST METHOD MAGNESIUMon 04-22-2024 Magnesium [Mass/Vol] 2.0 mg/dL Normal 1.8-2.6 [facility] Comment on above: Performed By: #### H H #### [facility] ([id number]) [address] [facility] [place] [address] Magnesiumon 04-22-2024 Magnesium [Mass/Vol] 2 mg/dL 1.8 - 2 .6 mg/dL [facility] No Panel Informationon 04-22 [facility] Cobalamin (Vitamin B12) [Mas s/Vol]on 04-21-2024 [facility] Folateon 04-21-2024 Folate [Mass/Vol] 6.3 ng/mL 5.8 - PINF ng/mL [facility] Comment on above: NEW REFERENCE RANGE Folate [Mass/Vol]on 04-21-20 [facility] FOLIC ACID 6.3 ng/mL Normal >5.8 [facility] Comment on above: Result Comment: NEW REFERENCE RANGE Performed By: #### 2 823-3 #### [facility] ([id number]) [address] [place] [address] Glucose Glucometer (BldC) [M ass/Vol]on 04-21-2024 Glucose [Mass/Vol] 186 mg/dL High 65 - 99 mg/dL [facility] Interpretation and review of laboratory results Abnormal [facility] Glucose [Mass/Vol] 186 mg/dL High 65-99 [facility] Glucose [Mass/Vol] 135 mg/dL High 65 - 99 mg/dL [facility] Interpretation and review of laboratory results Abnormal [facility] Glucose [Mass/Vol] 135 mg/dL High 65-99 [facility] Glucose [Mass/Vol] 205 mg/dL High 65 - 99 mg/dL [facility] Interpretation and review of laboratory results Abnormal [facility] Glucose [Mass/Vol] 205 mg/dL High 65-99 [facility] Glucose [Mass/Vol] 162 mg/dL High 65 - 99 mg/dL [facility] Interpretation and review of laboratory results Abnormal [facility] Glucose [Mass/Vol] 162 mg/dL High 65-99 [facility] HGB A1C (GLYCO-HGB)on 2023 Glucose [Mass/Vol] 186 mg/dL Normal [facility] Comment on above: Performed By: #### 2 823-3 #### [facility] ([id number]) [address] [facility] [place] [address] HbA1c (Bld) [Mass fraction] 8.1 % High 4.4-5.6 [facility] Comment on above: Result Comment: NOTE ADA Guidelines Result HgbA1c Normal : less than 5.7 % Prediabetes : 5.7 % to 6.4 % Diabetes : > 6.4 % Use with caution in patients with abnormal hemoglobin variants as the half-life of red blood cells and in vivo glycation rates are affected. Performed By: #### 2 823-3 #### [facility] ([id number]) [address] [place] [address] Hemoglobin A1con 04-21-2024 Average glucose Estimated from glycated hemoglobin (Bld) [Mass/Vol] 186 mg/dL [facility] [facility] HbA1c (Bld) [Mass fraction] 8.1 % High 4.4 - 5.6 % [facility] Comment on above: NOTE ADA Guidelines Result HgbA1c Normal : less than 5.7 % Prediabetes : 5.7 % to 6.4 % Diabetes : > 6.4 % Use with caution in patients with abnormal hemoglobin variants as the half-life of red blood cells and in vivo glycation rates are affected. Interpretation and review of laboratory results Abnormal [facility] MR BRAIN WO CONTon MR BRAIN WO CONT MR BRAIN WO CONT STUDY: MRI brain without contrast CLINICAL HISTORY: Stroke, hemorrhagic COMPARISON: CTA head dated 04/20/2024 TECHNIQUE: Routine multiplanar multisequence MR imaging of the brain was performed without contrast. FINDINGS: No acute ischemia, no acute intracranial hemorrhage. No ventricular outflow obstruction. Moderate burden white matter FLAIR hyperintensities are the deep, subcortical and periventricular white matter. Moderate global parenchymal volume loss. Abnormal left vertebral artery. Otherwise unremarkable intracranial vascular flow voids. Asymmetric left mastoid fluid. Unremarkable visualized suprahyoid neck, orbits, scalp soft tissues. Edentulous. IMPRESSION: 1. Abnormal left vertebral artery [slow flow versus occlusion], recommend correlation with vascular imaging. 2. No acute ischemia 3. Moderate global parenchymal volume loss. Mild/moderate burden white matter FLAIR hyperintensities, most often seen in the setting of chronic microvascular ischemia. 4. Symmetric left mastoid fluid, correlate for clinical signs of mastoiditis. THIS REPORT CONTAINS A SIGNIFICANT RESULT AND/OR RECOMMENDATION, WHICH REQUIRES THE ATTENTION OF THE LICENSED CAREGIVER RESPONSIBLE FOR THIS PATIENT. THEREFORE, I SPECIFICALLY DESIGNATED THIS REPORT TO BE TELEPHONED BY THE RADIOLOGY DEPARTMENT. FINDINGS WERE INSTRUCTED TO BE CALLED TO THE CLINICAL SERVICE ON 04/21/2024 1:31 PM Finalized by Jose Alfredo Ordonez MD on 04/21/2024 1:31 PM [facility] MR Brain WO contraston 04-21 STUDY: MRI brain without contrast CLINICAL HISTORY: Stroke, hemorrhagic COMPARISON: CTA head dated 04/20/2024 TECHNIQUE: Routine multiplanar multisequence MR imaging of the brain was performed without contrast. FINDINGS: No acute ischemia, no acute intracranial hemorrhage. No ventricular outflow obstruction. Moderate burden white matter FLAIR hyperintensities are the deep, subcortical and periventricular white matter. Moderate global parenchymal volume loss. Abnormal left vertebral artery. Otherwise unremarkable intracranial vascular flow voids. Asymmetric left mastoid fluid. Unremarkable visualized suprahyoid neck, orbits, scalp soft tissues. Edentulous. IMPRESSION: 1. Abnormal left vertebral artery [slow flow versus occlusion], recommend correlation with vascular imaging. 2. No acute ischemia 3. Moderate global parenchymal volume loss. Mild/moderate burden white matter FLAIR hyperintensities, most often seen in the setting of chronic microvascular ischemia. 4. Symmetric left mastoid fluid, correlate for clinical signs of mastoiditis. THIS REPORT CONTAINS A SIGNIFICANT RESULT AND/OR RECOMMENDATION, WHICH REQUIRES THE ATTENTION OF THE LICENSED CAREGIVER RESPONSIBLE FOR THIS PATIENT. THEREFORE, I SPECIFICALLY DESIGNATED THIS REPORT TO BE TELEPHONED BY THE RADIOLOGY DEPARTMENT. FINDINGS WERE INSTRUCTED TO BE CALLED TO THE CLINICAL SERVICE ON 04/21/2024 1:31 PM Finalized by Jose Alfredo Ordonez MD on 04/21/2024 1:31 PM Jose Alfredo Acharya MD - 04/21/2024 STUDY: MRI brain without contrast CLINICAL HISTORY: Stroke, hemorrhagic COMPARISON: CTA head dated 04/20/2024 TECHNIQUE: Routine multiplanar multisequence MR imaging of the brain was performed without contrast. FINDINGS: No acute ischemia, no acute intracranial hemorrhage. No ventricular outflow obstruction. Moderate burden white matter FLAIR hyperintensities are the deep, subcortical and periventricular white matter. Moderate global parenchymal volume loss. Abnormal left vertebral artery. Otherwise unremarkable intracranial vascular flow voids. Asymmetric left mastoid fluid. Unremarkable visualized suprahyoid neck, orbits, scalp soft tissues. Edentulous. IMPRESSION: 1. Abnormal left vertebral artery [slow flow versus occlusion], recommend correlation with vascular imaging. 2. No acute ischemia 3. Moderate global parenchymal volume loss. Mild/moderate burden white matter FLAIR hyperintensities, most often seen in the setting of chronic microvascular ischemia. 4. Symmetric left mastoid fluid, correlate for clinical signs of mastoiditis. THIS REPORT CONTAINS A SIGNIFICANT RESULT AND/OR RECOMMENDATION, WHICH REQUIRES THE ATTENTION OF THE LICENSED CAREGIVER RESPONSIBLE FOR THIS PATIENT. THEREFORE, I SPECIFICALLY DESIGNATED THIS REPORT TO BE TELEPHONED BY THE RADIOLOGY DEPARTMENT. FINDINGS WERE INSTRUCTED TO BE CALLED TO THE CLINICAL SERVICE ON 04/21/2024 1:31 PM Finalized by Jose Alfredo Ordonez MD on 04/21/2024 1:31 PM [facility] Study observation (narrative) [facility] MR Brain WO contrastOrdered By: Jose Alfredo Odronez on 04-21-2024 [facility] Work Phone: MR MRA HEAD WO CONTon 2023 MR MRA HEAD WO CONT MR MRA HEAD WO CONT MR MRA HEAD WO CONT: 04/21/2024 PROVIDED HISTORY: * 74 years old Female * Stroke, hemorrhagic COMPARISON: MRI brain 04/21/2024 TECHNIQUE: MRA of [place] performed without intravenous contrast. Source and 3-D [id number] MIP images were obtained and reviewed. FINDINGS: Motion degraded examination. No flow related signal of the partially visualized cervical and intracranial vertebral artery with questionable minimal signal proximal to the basilar confluence. Left posterior inferior cerebellar artery signal was not definitively visualized. Left anterior inferior cerebellar artery appears patent. Distal right vertebral artery and basilar artery are within normal limits for technique. Left posterior inferior cerebellar artery is patent, with impression of the level of the foremen magnum. Superior cerebellar artery origins are patent. Limited flow-related signal of the posterior cerebral arteries bilaterally, likely region of the ambient cistern, though with resumption of more robust flow-related signal. Distal internal carotid arteries with scattered luminal irregularities, likely related to intracranial atherosclerotic disease, though without evidence of high-grade stenosis. Anterior communicating artery and anterior cerebral arteries are patent. Middle cerebral arteries are patent with mild luminal irregularities on the right greater than left, likely related to intracranial atherosclerosis. Mild asymmetrically decreased caliber of the proximal right M2 branches, though with resumption of normal flow-related signal distally. Bilateral ophthalmic artery origins are visualized. No large vessel occlusion, high-grade stenosis, aneurysm, or malformation of the anterior, middle, or posterior cerebral arteries. IMPRESSION: Motion degraded examination. 1. No flow related signal of the visualized left vertebral artery, suggestive of chronic occlusion. 2. Decreased flow related signal of posterior cerebral arteries and right middle cerebral artery proximally with more robust signal distally, possibly u.s. representative of a combination of artifact and intracranial atherosclerosis, though without definite evidence of high-grade stenosis. Continued attention on follow-up contrast enhanced imaging, as clinically warranted. 3. Otherwise no large vessel occlusion, high-grade stenosis, or aneurysm of the remainder of the [place] circulation. Finalized by Denton Redd MD on 04/21/2024 4:36 PM Normal [facility] MR MRA NECK WO CONTon 2023 MR MRA NECK WO CONT MR MRA NECK WO CONT History: [Hemorrhagic stroke.] MR brain mentioned abnormal left vertebral artery. [ PROCEDURE: MR and MRA of the neck was obtained without contrast. FINDINGS: There is no prior MRA of the neck. This MRA of the neck is severely limited by marked motion artifact] The carotid arteries and right vertebral artery have some flow signal. The left vertebral artery does not have any appreciable flow signal. Impression: [The MR examination is markedly limited by motion artifact. The carotid and right vertebral arteries have flow signal and are likely patent. Stenosis cannot be excluded]. However, there is no obvious signal on this very limited examination in the left vertebral artery, suggestive of either hypoplasia or occlusion.. Finalized by Garett Love MD on 04/21/2024 4:50 PM Normal [facility] MRA Head vessels WO contrast on 04-21-2024 MR MRA HEAD WO CONT: 04/21/2024 PROVIDED HISTORY: * 74 years old Female * Stroke, hemorrhagic COMPARISON: MRI brain 04/21/2024 TECHNIQUE: MRA of [place] performed without intravenous contrast. Source and 3-D [id number] MIP images were obtained and reviewed. FINDINGS: Motion degraded examination. No flow related signal of the partially visualized cervical and intracranial vertebral artery with questionable minimal signal proximal to the basilar confluence. Left posterior inferior cerebellar artery signal was not definitively visualized. Left anterior inferior cerebellar artery appears patent. Distal right vertebral artery and basilar artery are within normal limits for technique. Left posterior inferior cerebellar artery is patent, with impression of the level of the foremen magnum. Superior cerebellar artery origins are patent. Limited flow-related signal of the posterior cerebral arteries bilaterally, likely region of the ambient cistern, though with resumption of more robust flow-related signal. Distal internal carotid arteries with scattered luminal irregularities, likely related to intracranial atherosclerotic disease, though without evidence of high-grade stenosis. Anterior communicating artery and anterior cerebral arteries are patent. Middle cerebral arteries are patent with mild luminal irregularities on the right greater than left, likely related to intracranial atherosclerosis. Mild asymmetrically decreased caliber of the proximal right M2 branches, though with resumption of normal flow-related signal distally. Bilateral ophthalmic artery origins are visualized. No large vessel occlusion, high-grade stenosis, aneurysm, or malformation of the anterior, middle, or posterior cerebral arteries. IMPRESSION: Motion degraded examination. 1. No flow related signal of the visualized left vertebral artery, suggestive of chronic occlusion. 2. Decreased flow related signal of posterior cerebral arteries and right middle cerebral artery proximally with more robust signal distally, possibly u.s. representative of a combination of artifact and intracranial atherosclerosis, though without definite evidence of high-grade stenosis. Continued attention on follow-up contrast enhanced imaging, as clinically warranted. 3. Otherwise no large vessel occlusion, high-grade stenosis, or aneurysm of the remainder of the [place] circulation. Finalized by Denton Redd MD on 04/21/2024 4:36 PM [facility] Denton Redd MD - 04/21/2024 MR MRA HEAD WO CONT: 04/21/2024 PROVIDED HISTORY: * 74 years old Female * Stroke, hemorrhagic COMPARISON: MRI brain 04/21/2024 TECHNIQUE: MRA of [place] performed without intravenous contrast. Source and 3-D [id number] MIP images were obtained and reviewed. FINDINGS: Motion degraded examination. No flow related signal of the partially visualized cervical and intracranial vertebral artery with questionable minimal signal proximal to the basilar confluence. Left posterior inferior cerebellar artery signal was not definitively visualized. Left anterior inferior cerebellar artery appears patent. Distal right vertebral artery and basilar artery are within normal limits for technique. Left posterior inferior cerebellar artery is patent, with impression of the level of the foremen magnum. Superior cerebellar artery origins are patent. Limited flow-related signal of the posterior cerebral arteries bilaterally, likely region of the ambient cistern, though with resumption of more robust flow-related signal. Distal internal carotid arteries with scattered luminal irregularities, likely related to intracranial atherosclerotic disease, though without evidence of high-grade stenosis. Anterior communicating artery and anterior cerebral arteries are patent. Middle cerebral arteries are patent with mild luminal irregularities on the right greater than left, likely related to intracranial atherosclerosis. Mild asymmetrically decreased caliber of the proximal right M2 branches, though with resumption of normal flow-related signal distally. Bilateral ophthalmic artery origins are visualized. No large vessel occlusion, high-grade stenosis, aneurysm, or malformation of the anterior, middle, or posterior cerebral arteries. IMPRESSION: Motion degraded examination. 1. No flow related signal of the visualized left vertebral artery, suggestive of chronic occlusion. 2. Decreased flow related signal of posterior cerebral arteries and right middle cerebral artery proximally with more robust signal distally, possibly u.s. representative of a combination of artifact and intracranial atherosclerosis, though without definite evidence of high-grade stenosis. Continued attention on follow-up contrast enhanced imaging, as clinically warranted. 3. Otherwise no large vessel occlusion, high-grade stenosis, or aneurysm of the remainder of the [place] circulation. Finalized by Denton Redd MD on 04/21/2024 4:36 PM [facility] Radiology Study observation (narrative) [facility] MRA Head vessels WO contrast Ordered By: Denton Redd on 04-21-2024 [facility] Work Phone: MRA Neck vessels WO contrast on 04-21-2024 History: [Hemorrhagic stroke.] MR brain mentioned abnormal left vertebral artery. [ PROCEDURE: MR and MRA of the neck was obtained without contrast. FINDINGS: There is no prior MRA of the neck. This MRA of the neck is severely limited by marked motion artifact] The carotid arteries and right vertebral artery have some flow signal. The left vertebral artery does not have any appreciable flow signal. Impression: [The MR examination is markedly limited by motion artifact. The carotid and right vertebral arteries have flow signal and are likely patent. Stenosis cannot be excluded]. However, there is no obvious signal on this very limited examination in the left vertebral artery, suggestive of either hypoplasia or occlusion.. Finalized by Garett Love MD on 04/21/2024 4:50 PM [facility] Victor M Love MD - 04/21/2024 History: [Hemorrhagic stroke.] MR brain mentioned abnormal left vertebral artery. [ PROCEDURE: MR and MRA of the neck was obtained without contrast. FINDINGS: There is no prior MRA of the neck. This MRA of the neck is severely limited by marked motion artifact] The carotid arteries and right vertebral artery have some flow signal. The left vertebral artery does not have any appreciable flow signal. Impression: [The MR examination is markedly limited by motion artifact. The carotid and right vertebral arteries have flow signal and are likely patent. Stenosis cannot be excluded]. However, there is no obvious signal on this very limited examination in the left vertebral artery, suggestive of either hypoplasia or occlusion.. Finalized by Garett Love MD on 04/21/2024 4:50 PM [facility] Radiology Study observation (narrative) [facility] MRA Neck vessels WO contrast Ordered By: Victor M Love on 04-21-2024 [facility] Work Phone: PHOSPHORUSon 04-21-2024 Phosphate [Mass/Vol] 4.4 mg/dL Normal 2.4-4.9 [facility] Comment on above: Performed By: #### 2 [id number] #### [facility] ([id number]) [address] [place] [address] Phosphate [Mass/Vol]on 04-21 [facility] Phosphoruson 04-21-2024 Phosphate [Mass/Vol] 4.4 mg/dL 2.4 - 4 .9 mg/dL [facility] RESP PATHOGENS/[id number] 04-21-2024 Respiratory pathogens DNA and RNA panel DANA+non-probe (Nph) SPECIMEN SOURCE NASO PHARYNX ADENOVIRUS Not detected (qualifier value) CORONAVIRUS 229E Not detected (qualifier value) CORONAVIRUS HKU1 Not detected (qualifier value) CORONAVIRUS NL63 Not detected (qualifier value) CORONAVIRUS OC43 Not detected (qualifier value) HUMAN METAPNEUVIRUS Not detected (qualifier value) RHINO/ENTEROVIRUS Not detected (qualifier value) INFLUENZA A Not detected (qualifier value) INFLUENZA B Not detected (qualifier value) PARAINFLUENZA 1 Not detected (qualifier value) PARAINFLUENZA 2 Not detected (qualifier value) PARAINFLUENZA 3 Not detected (qualifier value) PARAINFLUENZA 4 Not detected (qualifier value) RESP SYNCYTIAL VIRUS Not detected (qualifier value) BORD PARAPERTUSSIS Not detected (qualifier value) BORDETELLA PERTUSSIS Not detected (qualifier value) CHLAM.PNEUMONIAE Not detected (qualifier value) MYCO. PNEUMONIAE Not detected (qualifier value) SARS CoV 2 Not detected (qualifier value) NOTE The [employer] Respiratory Panel 2.1 (RP2.1) is a multiplexed nucleic acid test intended for the simultaneous qualitative detection and differentiation of nucleic acid from multiple viral and bacterial respiratory organisms, including nucleic acid from Severe Acute Respiratory Syndrome Coronavirus 2 (SARS-CoV-2), in nasopharyngeal swabs obtained from individuals suspected of COVID-19 by their healthcare provider. Testing is limited to laboratories certified under the Clinical Laboratory Improvement Amendments of 1988 (CLIA), to perform high complexity or moderate complexity tests. SARS-CoV-2 RNA and nucleic acids from the other respiratory viral and bacterial organisms identified by this test are generally detectable in nasopharyngeal swabs during the acute phase of infection. The detection and identification of specific viral and bacterial nucleic acids from individuals exhibiting signs and/or symptoms of respiratory infection is indicative of the presence of the identified microorganism and aids in the diagnosis of respiratory infection if used in conjunction with other clinical and epidemiological information. Positive results are indicative of the presence of the identified organism, but do not rule out co-infection with other pathogens. The agent(s) detected by the [employer] RP2.1 may not be the definite cause of disease and clinical correlation with patient history and other diagnostic information is necessary to determine patient infection status. Negative results in the setting of a respiratory illness may be due to infection with pathogens not detected by this test, or lower respiratory tract infection that may not be detected by a nasopharyngeal specimen. Negative results do not preclude SARS-CoV-2 infection and should not be used as the sole basis for patient management decisions. Negative KERRY-CoV-2 results must be combined with clinical observations, patient history and epidemiological information. Negative results for other organisms identified by the test may require additional laboratory testing when evaluating a patient with possible respiratory tract infection. Normal [facility] Comment on above: Performed By: #### 8 [id number] ####[facility] ([id number])[address] [place], [place] [address] ([id number])[address] [place] [address], [address] [address] Respiratory pathogens DNA an d RNA panel DANA+non-probe (Nph)on 04-21-2024 Adenovirus DNA DANA+non-probe Ql (Nph) Not detected Not Detected^N ot Detected [facility] B. parapertussis [id number] DNA DANA+non-probe Ql (Nph) Not detected Not Detected^N ot Detected [facility] B. pertussis toxin promoter region DANA+non-probe Ql (Nph) Not detected Not Detected^N ot Detected [facility] C. pneumoniae DNA DANA+non-probe Ql (Nph) Not detected Not Detected^N ot Detected [facility] FLUAV RNA DANA+non-probe Ql (Nph) Not detected Not Detected^N ot Detected [facility] FLUBV RNA DANA+non-probe Ql (Nph) Not detected Not Detected^N ot Detected [facility] HCoV 229E RNA DANA+non-probe Ql (Nph) Not detected Not Detected^N ot Detected [facility] HCoV HKU1 RNA DANA+non-probe Ql (Nph) Not detected Not Detected^N ot Detected [facility] HCoV NL63 RNA DANA+non-probe Ql (Nph) Not detected Not Detected^N ot Detected [facility] HCoV OC43 RNA DANA+non-probe Ql (Nph) Not detected Not Detected^N ot Detected [facility] hMPV RNA DANA+non-probe Ql (Nph) Not detected Not Detected^N ot Detected [facility] M. pneumoniae DNA DANA+non-probe Ql (Nph) Not detected Not Detected^N ot Detected [facility] Parainfluenza virus 1 RNA DANA+non-probe Ql (Nph) Not detected Not Detected^N ot Detected [facility] Parainfluenza virus 2 RNA DANA+non-probe Ql (Nph) Not detected Not Detected^N ot Detected [facility] Parainfluenza virus 3 RNA DANA+non-probe Ql (Nph) Not detected Not Detected^N ot Detected [facility] Parainfluenza virus 4 RNA DANA+non-probe Ql (Nph) Not detected Not Detected^N ot Detected [facility] Rhinovirus+Enteroviru s RNA DANA+non-probe Ql (Nph) Not detected Not Detected^N ot Detected [facility] RSV RNA DANA+non-probe Ql (Nph) Not detected Not Detected^N ot Detected [facility] SARS-CoV-2 (COVID-19) RNA DANA+probe Ql (Resp) Not detected Not Detected^N ot Detected [facility] Comment on above: NOTE The [employer] Respiratory Panel 2.1 (RP2.1) is a multiplexed nucleic acid test intended for the simultaneous qualitative detection and differentiation of nucleic acid from multiple viral and bacterial respiratory organisms, including nucleic acid from Severe Acute Respiratory Syndrome Coronavirus 2 (SARS-CoV-2), in nasopharyngeal swabs obtained from individuals suspected of COVID-19 by their healthcare provider. Testing is limited to laboratories certified under the Clinical Laboratory Improvement Amendments of 1988 (CLIA), to perform high complexity or moderate complexity tests. SARS-CoV-2 RNA and nucleic acids from the other respiratory viral and bacterial organisms identified by this test are generally detectable in nasopharyngeal swabs during the acute phase of infection. The detection and identification of specific viral and bacterial nucleic acids from individuals exhibiting signs and/or symptoms of respiratory infection is indicative of the presence of the identified microorganism and aids in the diagnosis of respiratory infection if used in conjunction with other clinical and epidemiological information. Positive results are indicative of the presence of the identified organism, but do not rule out co-infection with other pathogens. The agent(s) detected by the [employer] RP2.1 may not be the definite cause of disease and clinical correlation with patient history and other diagnostic information is necessary to determine patient infection status. Negative results in the setting of a respiratory illness may be due to infection with pathogens not detected by this test, or lower respiratory tract infection that may not be detected by a nasopharyngeal specimen. Negative results do not preclude SARS-CoV-2 infection and should not be used as the sole basis for patient management decisions. Negative KERRY-CoV-2 results must be combined with clinical observations, patient history and epidemiological information. Negative results for other organisms identified by the test may require additional laboratory testing when evaluating a patient with possible respiratory tract infection. Specimen source Nom (Body fld) NASO PHARYNX [facility] THYROID PROFILEon 04-21-2024 Free T4 [Mass/Vol] 0.49 ng/dL Low 0.61-1.60 [facility] Comment on above: Result Comment: NEW REFERENCE RANGE FOR PEDIATRIC PATIENTS Performed By: #### 2 823-3 #### [facility] ([id number]) [address] [place] [address] [place] [address] TSH 29.36 uIU/mL High 0.49-4.67 [facility] Comment on above: Result Comment: NEW REFERENCE RANGE FOR PEDIATRIC PATIENTS Performed By: #### 2 823-3 #### [facility] ([id number]) [address] [place] [address] Thyroid profile includes TSH FT4on 04-21-2024 Free T4 [Mass/Vol] 0.49 ng/dL Low 0.61 - 1.60 ng/dL [facility] Comment on above: NEW REFERENCE RANGE FOR PEDIATRIC PATIENTS Interpretation and review of laboratory results Abnormal [facility] TSH Qn 29.36 m[IU]/L High [facility] Comment on above: NEW REFERENCE RANGE FOR PEDIATRIC PATIENTS [facility] VITAMIN B12on 04-21-2024 Cobalamin (Vitamin B12) [Mass/Vol] 351 pg/mL Normal 180-914 [facility] Comment on above: Performed By: #### 2 823-3 #### [facility] ([id number]) [address] [facility] [place] [address] Vitamin B12on 04-21-2024 Cobalamin (Vitamin B12) [Mass/Vol] 351 pg/mL 180 - 914 pg/mL [facility] XR CHEST 1 VWon 04-21-2024 XR CHEST 1 VW XR CHEST 1 VW XR CHEST 1 VW: 04/21/2024 10:54 AM Clinical: Cough Upright portable chest is compared with 01/12/2024. Exam limited by apical lordotic positioning. Continued elevation right hemidiaphragm. Heart size remains enlarged. No acute consolidation, large effusion, or pneumothorax. IMPRESSION: * No acute disease to limits of this portable exam. Finalized by Jose Antonio Casanova MD on 04/21/2024 11:37 AM Normal [facility] XR Chest Single viewon 04-21 XR CHEST 1 VW: 04/21/2024 10:54 AM Clinical: Cough Upright portable chest is compared with 01/12/2024. Exam limited by apical lordotic positioning. Continued elevation right hemidiaphragm. Heart size remains enlarged. No acute consolidation, large effusion, or pneumothorax. IMPRESSION: * No acute disease to limits of this portable exam. Finalized by Jose Antonio Casanova MD on 04/21/2024 11:37 AM SECTRAJose Antonio Hawkins MD - 04/21/2024 XR CHEST 1 VW: 04/21/2024 10:54 AM Clinical: Cough Upright portable chest is compared with 01/12/2024. Exam limited by apical lordotic positioning. Continued elevation right hemidiaphragm. Heart size remains enlarged. No acute consolidation, large effusion, or pneumothorax. IMPRESSION: * No acute disease to limits of this portable exam. Finalized by Jose Antonio Casanova MD on 04/21/2024 11:37 AM [facility] Radiology Study observation (narrative) [facility] XR Chest Single viewOrdered By: Jose Antonio Casanova on 04-21-2024 [facility] Work Phone: C REACTIVE PROTEINon 024 CRP [Mass/Vol] mg/L Normal 0.000-0.74 4 [facility] Comment on above: Performed By: #### P INR, 48311-6, CBCA, CMP #### [facility] ([id number]) [address] [place] [address] 69178 CBC AND AUTO DIFFon 04-20-20 24 ABSOLUTE BASOPHIL 0.1 X10E9/L Normal 0.0-0.2 [facility] Comment on above: Performed By: #### P INR, 43133-8, CBCA, CMP #### [facility] ([id number]) [address] [place] [address] 52238 ABSOLUTE NEUTROPHIL 4.5 X10E9/L Normal 1.5-6.6 [facility] Comment on above: Performed By: #### P INR, 72860-4, CBCA, CMP #### [facility] ([id number]) [address] [place] [address] 32991 Basophils/100 WBC (Bld) 1.2 % Normal [facility] Comment on above: Performed By: #### P INR, 19025-1, CBCA, CMP #### [facility] ([id number]) [address] [place] [address] 33588 Eosinophils (Bld) [#/Vol] 0.3 10*3/uL Normal 0.0-0.4 [facility] Comment on above: Performed By: #### P INR, 04356-9, CBCA, CMP #### [facility] ([id number]) [address] [place] [address] 94844 Eosinophils/100 WBC (Bld) 4.2 % Normal [facility] Comment on above: Performed By: #### P INR, 46989-2, CBCA, CMP #### [facility] ([id number]) [address] [place] [address] 52666 Erythrocyte distribution width (RBC) [Ratio] 21.4 % High 11.5-15.0 [facility] Comment on above: Performed By: #### P INR, 29405-5, CBCA, CMP #### [facility] ([id number]) [address] [place] [address] 51043 Hematocrit (Bld) [Volume fraction] 37.6 % Normal 35-47 [facility] Comment on above: Performed By: #### P INR, 22951-8, CBCA, CMP #### [facility] ([id number]) [address] [place] [address] 48057 Hemoglobin (Bld) [Mass/Vol] 11.8 g/dL Normal 11.7-15.5 [facility] Comment on above: Performed By: #### P INR, 84527-6, CBCA, CMP #### [facility] ([id number]) [address] [place] [address] 20404 Lymphocytes (Bld) [#/Vol] 1.4 10*3/uL Normal 1.0-3.5 [facility] Comment on above: Performed By: #### P INR, 17536-9, CBCA, CMP #### [facility] ([id number]) [address] [place] [address] 59329 Lymphocytes/100 WBC (Bld) 21.6 % Normal [facility] Comment on above: Performed By: #### P INR, 12059-0, CBCA, CMP #### [facility] ([id number]) [address] [place] [address] 46716 MCH (RBC) [Entitic mass] 30.4 pg Normal 27-34 [facility] Comment on above: Performed By: #### P INR, 05435-5, CBCA, CMP #### [facility] ([id number]) [address] [place] [address] 68871 MCHC (RBC) [Mass/Vol] 31.4 g/dL Low 32-36 [facility] Comment on above: Performed By: #### P INR, 63226-0, CBCA, CMP #### [facility] ([id number]) [address] [place] [address] 21061 MCV (RBC) [Entitic vol] 97 fL Normal 80-100 [facility] Comment on above: Performed By: #### P INR, 53682-1, CBCA, CMP #### [facility] ([id number]) [address] [place] [address] 86599 Monocytes (Bld) [#/Vol] 0.4 10*3/uL Normal 0-0.9 [facility] Comment on above: Performed By: #### P INR, 03751-1, CBCA, CMP #### [facility] ([id number]) [address] [place] [address] 15594 Monocytes/100 WBC (Bld) 5.4 % Normal [facility] Comment on above: Performed By: #### P INR, 91629-3, CBCA, CMP #### [facility] ([id number]) [address] [place] [address] 32626 Neutrophils/100 WBC (Bld) 67.6 % Normal [facility] Comment on above: Performed By: #### P INR, 78015-7, CBCA, CMP #### [facility] ([id number]) [address] [place] [address] 19455 Platelet mean volume (Bld) [Entitic vol] 8.6 fL Normal 7-12 [facility] Comment on above: Performed By: #### P INR, 35884-1, CBCA, CMP #### [facility] ([id number]) [address] [place] [address] 64916 Platelets (Bld) [#/Vol] 145 10*3/uL Low 150-450 [facility] Comment on above: Performed By: #### P INR, 45873-6, CBCA, CMP #### [facility] ([id number]) [address] [place] [address] 94807 RBC COUNT 3.88 X10E12/L Normal 3.80-5.20 [facility] Comment on above: Performed By: #### P INR, 95865-7, CBCA, CMP #### [facility] ([id number]) [address] [place] [address] 78456 WBC (Bld) [#/Vol] 6.7 10*3/uL Normal 4.0-11.0 [facility] Comment on above: Performed By: #### P INR, 03703-7, CBCA, CMP #### [facility] ([id number]) [address] [place] [address] 58585 COMPREHENSIVE METABOLIC PANE [facility] 04-20-2024 Albumin [Mass/Vol] 3.3 g/dL Normal 3.2-5.3 [facility] Comment on above: Performed By: #### P INR, 48069-3, CBCA, CMP #### [facility] ([id number]) [address] [place] [address] 32667 ALP [Catalytic activity/Vol] 91 U/L Normal 39-130 [facility] Comment on above: Performed By: #### P INR, 87307-5, CBCA, CMP #### [facility] ([id number]) [address] [place] [address] 59046 ALT [Catalytic activity/Vol] 18 U/L Normal 0-31 [facility] Comment on above: Performed By: #### P INR, 03405-5, CBCA, CMP #### [facility] ([id number]) [address] [place] [address] 25329 Anion gap [Moles/Vol] 11 mmol/L Normal 5-15 [facility] Comment on above: Performed By: #### P INR, 55390-8, CBCA, CMP #### [facility] ([id number]) [address] [place] [address] 62976 AST [Catalytic activity/Vol] 15 U/L Normal 0-41 [facility] Comment on above: Performed By: #### P INR, 83639-4, CBCA, CMP #### [facility] ([id number]) [address] [place] [address] 42094 Bilirubin [Mass/Vol] 0.3 mg/dL Normal 0.3-1.2 [facility] Comment on above: Performed By: #### P INR, 85800-1, CBCA, CMP #### [facility] ([id number]) [address] [place] [address] 77852 Calcium [Mass/Vol] 8.6 mg/dL Normal 8.5-10.5 [facility] Comment on above: Performed By: #### P INR, 83701-6, CBCA, CMP #### [facility] ([id number]) [address] [place] [address] 70176 Chloride [Moles/Vol] 95 mmol/L Low 98-109 [facility] Comment on above: Performed By: #### P INR, 90993-6, CBCA, CMP #### [facility] ([id number]) [address] [place] [address] 92934 CO2 [Moles/Vol] 27 mmol/L Normal 22-32 [facility] Comment on above: Performed By: #### P INR, 41388-8, CBCA, CMP #### [facility] ([id number]) [address] [place] [address] 74127 Creatinine [Mass/Vol] 3.14 mg/dL High 0.40-1.00 [facility] Comment on above: Result Comment: METH OD TRACEABLE TO IDMS STANDARD Performed By: #### P INR, 40105-0, CBCA, CMP #### [facility] ([id number]) [address] [place] [address] 68655 GFR/1.73 sq M.predicted among non-blacks MDRD (S/P/Bld) [Vol rate/Area] 15 mL/min/{1.73_m2} Low >59 [facility] Comment on above: Result Comment: Reported eGFR is based on the CKD-EPI 2020 equation that does not use a race coefficient. Performed By: #### P INR, 61033-3, CBCA, CMP #### [facility] ([id number]) [address] [place] [address] 97898 Glucose [Mass/Vol] 183 mg/dL High 65-99 [facility] Comment on above: Performed By: #### P INR, 65827-5, CBCA, CMP #### [facility] ([id number]) [address] [place] [address] 14754 Potassium [Moles/Vol] 3.6 mmol/L Normal 3.5-5.0 [facility] Comment on above: Performed By: #### P INR, 96544-2, CBCA, CMP #### [facility] ([id number]) [address] [place] [address] 99431 Protein [Mass/Vol] 6.9 g/dL Normal 6.0-8.0 [facility] Comment on above: Performed By: #### P INR, 03062-1, CBCA, CMP #### [facility] ([id number]) [address] [place] [address] 81204 Sodium [Moles/Vol] 133 mmol/L Low 134-146 [facility] Comment on above: Performed By: #### P INR, 07312-1, CBCA, CMP #### [facility] ([id number]) [address] [place] [address] Urea nitrogen [Mass/Vol] 19 mg/dL Normal 5-27 [facility] Comment on above: Performed By: #### P INR, 59835-3, CBCA, CMP #### [facility] ([id number]) [address] [place] [address] CT BRAIN WO CONTon CT BRAIN WO CONT CT BRAIN WO CONT EXAM: CT BRAIN WO CONT CLINICAL INFORMATION: Mental status change, unknown cause. TECHNIQUE: CT head was performed without contrast utilizing 2.5 mm axial reconstruction with images reviewed in bone and brain windows. Automated exposure control was utilized. COMPARISON: 10/27/2022 FINDINGS: There is no evidence for an acute intra or extra-axial hemorrhage. There is a background of patchy and confluent low attenuation within the white matter, most commonly attributable to the sequela of chronic ischemic small vessel disease. The callaway-white matter differentiation is preserved. There is no intracranial mass effect. The ventricles are proportional to the overall brain volume without evidence for outflow obstruction. There is no shift of the midline structures and the basal cisterns are widely patent. There are no depressed or widely calvarial fractures. The paranasal sinuses are well aerated. The mastoids are clear. IMPRESSION: 1. No acute intracranial abnormalities. 2. White matter changes, most commonly attributable to the sequela of chronic ischemic small vessel disease. 3. Please note, hyperacute ischemia can remain occult on CT. If there is persistent concern for acute ischemia, further evaluation with a dedicated MRI is recommended as clinically indicated. All CT scans at this facility use dose modulation, iterative reconstruction, and/or weight based dosing when appropriate to reduce radiation dose to as low as reasonably achievable. Finalized by Armando Milton MD on 04/20/2024 3:58 PM Normal [facility] Lactate (P zandra) [Moles/Vol]o n 04-20-2024 LACTATE W/REFLEX 1.1 mmol/L Normal 0.4-2.0 [facility] Comment on above: Result Comment: Result did not trigger repeat Lactate, re-order if needed. Performed By: #### P INR, 90829-8, CBCA, CMP #### [facility] ([id number]) [address] [place] [address] 05755 MAGNESIUMon 04-20-2024 Magnesium [Mass/Vol] 1.7 mg/dL Low 1.8-2.6 [facility] Comment on above: Performed By: #### P INR, 97542-8, CBCA, CMP #### [facility] ([id number]) [address] [place] [address] 78629 Troponin I.cardiac High sens itivity method [Mass/Vol]on 04-20-2024 TROPONIN I, HIGH SENSITIVITY 37 ng/L High <16 [facility] Comment on above: Result Comment: Elevations of hs-Troponin may be due to causes other than myocardial ischemia. Recommend serial hs-Troponin testing be performed. For the initial evaluation and management of chest pain patients, refer to the algorithms linked below. Emergency Patient: [email or web address] Inpatient: [email or web address] [email or web address] Performed By: #### P INR, 89382-0, CBCA, CMP #### [facility] ([id number]) [address] [place] [address] 62310 1 HOUR TROP I, HIGH SENSITIVITY 37 ng/L High <16 [facility] Comment on above: Result Comment: Elevations of hs-Troponin may be due to causes other than myocardial ischemia. Recommend serial hs-Troponin testing be performed. For the initial evaluation and management of chest pain patients, refer to the algorithms linked below. Emergency Patient: [email or web address] [email or web address] Inpatient: [email or web address] [email or web address] Performed By: #### P INR, 07970-9, CBCA, CMP #### [facility] ([id number]) [address] [place] [address] TROPONIN I, HIGH SENSITIVITY 37 ng/L High <16 [facility] Comment on above: Result Comment: Elevations of hs-Troponin may be due to causes other than myocardial ischemia. Recommend serial hs-Troponin testing be performed. For the initial evaluation and management of chest pain patients, refer to the algorithms linked below. Emergency Patient: [email or web address] [email or web address] Inpatient: [email or web address] [email or web address] Performed By: #### P INR, 92956-3, CBCA, CMP #### [facility] ([id number]) [address] [place] [address] 72359 URINE CULTUREon 04-20-2024 Bacteria identified Cx Nom (U) CULTURE RESULTS MULTIPLE SPECIES PRESENT. PROBABLE COLLECTION CONTAMINATION. SUGGEST REPEAT SPECIMEN. Normal [facility] Comment on above: Performed By: #### P INR, 14212-8, CBCA, CMP #### [facility] ([id number]) [address] [place] [address] 76228 URN MACROSCOPIC NURon 2023 BILIRUBIN JOHN Negative Normal NEG [facility] Comment on above: Performed By: #### P INR, 72329-5, CBCA, CMP #### [facility] ([id number]) [address] [place] [address] 89550 BLOOD/HGB JOHN Trace Abnormal NEG [facility] Comment on above: Performed By: #### P INR, 43351-2, CBCA, CMP #### [facility] ([id number]) [address] [place] [address] 59931 GLUCOSE JOHN 500 mg/dL Abnormal NEG [facility] Comment on above: Performed By: #### P INR, 89088-8, CBCA, CMP #### [facility] ([id number]) [address] [place] [address] 68860 KETONES JOHN Negative Normal NEG [facility] Comment on above: Performed By: #### P INR, 93990-2, CBCA, CMP #### [facility] ([id number]) [address] [place] [address] 30127 LEUKOCYTE ESTERASE JOHN Trace Abnormal NEG [facility] Comment on above: Performed By: #### P INR, 93937-7, CBCA, CMP #### [facility] ([id number]) [address] [place] [address] 39656 NITRITE JOHN Negative Normal NEG [facility] Comment on above: Performed By: #### P INR, 31409-1, CBCA, CMP #### [facility] ([id number]) [address] [place] [address] 98527 PH JOHN 6.5 Normal 5.0-8.5 [facility] Comment on above: Performed By: #### P INR, 42238-4, CBCA, CMP #### [facility] ([id number]) [address] [place] [address] 58204 PROTEIN JOHN >=300 Abnormal NEG [facility] Comment on above: Performed By: #### P INR, 86170-4, CBCA, CMP #### [facility] ([id number]) [address] [place] [address] 55548 SPECIFIC GRAVITY JOHN 1.025 Normal 1.003-1 .03 5 [facility] Comment on above: Performed By: #### P INR, 76704-4, CBCA, CMP #### [facility] ([id number]) [address] [facility], [place] [address] UROBILINOGEN JOHN 0.2 eu/dL Normal <1.1 [facility] Comment on above: Performed By: #### P INR, 79260-4, CBCA, CMP #### [facility] ([id number]) [address] [place] [address], [place] [address] Alanine aminotransferase [En zymatic activity/volume] in Serum or PlasmaOrdered By: Tarik Cutler on 02-24-2024 ALT [Catalytic activity/Vol] 20 U/L Normal 7-52 [facility] Comment on above: Performed By: #### H S TROP, CBC, CMP, CK ####[place] [address] [address] Albumin [Mass/volume] in Ser um or Plasma by Bromocresol green (BCG) dye binding methoOrdered By: Tarik Cutler on 02-24-2024 Albumin BCG dye [Mass/Vol] 3.3 g/dL Low 3.5-5.7 [facility] Alkaline phosphatase [Enzyma tic activity/volume] in Serum or PlasmaOrdered By: Tarik Cutler on 02-24-2024 ALP [Catalytic activity/Vol] 84 U/L Normal 34-104 [facility] Comment on above: Performed By: #### H S TROP, CBC, CMP, CK ####[place] [id number] [facility] Aspartate aminotransferase [ Enzymatic activity/volume] in Serum or PlasmaOrdered By: Tarik Cutler on 02-24-2024 AST [Catalytic activity/Vol] 12 U/L Low 13-39 [facility] Comment on above: Performed By: #### H S TROP, CBC, CMP, CK ####[place] [id number] [facility] Automated basophil %Ordered By: Tarik Cutler on 02-24-2024 Basophils/100 WBC (Bld) 1.0 % Normal . [facility] Comment on above: Performed By: #### H S TROP, CBC, CMP, CK ####[address] Automated basophil countOrde red By: Tarik Cutler on 02-24-2024 Basophils (Bld) [#/Vol] 0.1 10*3/uL Normal 0.0-0.2 [facility] Comment on above: Result Comment: PERF ORMED BY: [facility] [address] [place] [address] PATHOLOGIST MACHINE PROGRAMMER DILLON ASCENCIO M.D. Performed By: #### H S TROP, CBC, CMP, CK ####[address] Automated blood monocyte cou ntOrdered By: Tarik Cutler on 02-24-2024 Monocytes (Bld) [#/Vol] 0.3 10*3/uL Normal 0.0-0.8 [facility] Comment on above: Performed By: #### H S TROP, CBC, CMP, CK ####[address] Automated eosinophil %Ordere d By: Tarik Cutler on 02-24-2024 Eosinophils/100 WBC (Bld) 2.8 % Normal . [facility] Comment on above: Performed By: #### H S TROP, CBC, CMP, CK ####[address] Automated eosinophil countOr dered By: Tarik Cutler on 02-24-2024 Eosinophils (Bld) [#/Vol] 0.2 10*3/uL Normal 0.0-0.45 [facility] Comment on above: Performed By: #### H S TROP, CBC, CMP, CK ####[address] Automated monocyte %Ordered By: Tarik Cutler on 02-24-2024 Monocytes/100 WBC (Bld) 5.3 % Normal . [facility] Comment on above: Performed By: #### H S TROP, CBC, CMP, CK ####[address] Automated neutrophil %Ordere d By: Tarik Cutler on 02-24-2024 Neutrophils/100 WBC (Bld) 80.4 % Normal . [facility] Comment on above: Performed By: #### H S TROP, CBC, CMP, CK ####[address] Bilirubin.total [Mass/volume ] in Serum or PlasmaOrdered By: Tarik Cutler on 02-24-2024 Bilirubin [Mass/Vol] 0.4 mg/dL Normal 0.3-1.[address] [facility] Comment on above: Performed By: #### H S TROP, CBC, CMP, CK ####[address] Calcium [Mass/volume] in Ser um or PlasmaOrdered By: Tarik Cutler on 02-24-2024 Calcium [Mass/Vol] 8.5 mg/dL Low 8.6-10.3 [facility] Comment on above: Performed By: #### H S TROP, CBC, CMP, CK ####[address] Carbon dioxide, total [Moles /volume] in Serum or PlasmaOrdered By: Tarik Cutler on 02-24-2024 CO2 [Moles/Vol] 26.3 mmol/L Normal 21.0-31.0 [facility] Comment on above: Performed By: #### H S TROP, CBC, CMP, CK ####[address] Chloride [Moles/volume] in S terrie or PlasmaOrdered By: Tarik Cutler on 02-24-2024 Chloride [Moles/Vol] 99 mmol/L Normal 98-[address] [facility] Comment on above: Performed By: #### H S TROP, CBC, CMP, CK ####[place] [address] [address] Complete Blood Count Auto Di ffon 02-24-2024 Mean Corpuscular HGB Conc 30.5 g/dL Low 32.0-35.0 [facility] Comment on above: Performed By: #### H S TROP, CBC, CMP, CK ####[address] Monocytes/100 WBC (Bld) 18.94 % Normal 0.00-20.00 [facility] Comment on above: Performed By: #### H S TROP, CBC, CMP, CK ####[address] NRBC% 0.1 /100{WBC} Normal 0-0.5 [facility] Comment on above: Performed By: #### H S TROP, CBC, CMP, CK ####[address] Comprehensive Metabolic Pane juventino 02-24-2024 Albumin [Mass/Vol] 3.3 g/dL Low 3.5-5.7 [facility] Comment on above: Performed By: #### H S TROP, CBC, CMP, CK ####[address] Creatinine Clr Calc Pharmacy 16.24 Normal [facility] Comment on above: Result Comment: PERF ORMED BY: [facility] [address] [facility] [place] [address] PATHOLOGIST MACHINE PROGRAMMER DILLON ASCENCIO M.D. Performed By: #### H S TROP, CBC, CMP, CK ####[address] GFR/1.73 sq M.predicted MDRD (S/P/Bld) [Vol rate/Area] 11.582 mL/min/{1.73_m2} Normal [facility] Comment on above: Performed By: #### H S TROP, CBC, CMP, CK ####[address] Creatine kinase [Enzymatic a ctivity/volume] in Serum or PlasmaOrdered By: Tarik Cutler on 02-24-2024 CK [Catalytic activity/Vol] 18 U/L Low 30-223 [facility] Comment on above: Performed By: #### H S TROP, CBC, CMP, CK ####[facility] [id number] Creatinine [Mass/volume] in Serum or PlasmaOrdered By: Tarik Cutler on 02-24-2024 Creatinine [Mass/Vol] 3.91 mg/dL High 0.60-1.20 [facility] Comment on above: Performed By: #### H S TROP, CBC, CMP, CK ####[facility] [id number] ECG 12 lead ECGon 02-24-2024 ECG 12 lead ECG [facility] [address] [place] [address] Electrocardiograph Report Signed Patient: Janay Schilling MR#: [id number] : 1950 Acct:[id number] Age/Sex: 74 / F ADM Date: 02/24/24 Loc: ER Room: Type: [facility] ER Attending Dr: Ordering Provider: Tarik Cutler DO Date of Service: 02/24/24 ECG/ECG 12 lead ECG: Syncope Copies to: Test Reason : Blood Pressure : 150/68 mmHG Vent. Rate : 74 BPM Atrial Rate : 74 BPM P-R Int : 238 ms QRS Dur : 162 ms QT Int : 460 ms P-R-T Axes : 35 -73 31 degrees QTcB Int : 510 ms Sinus rhythm with 1st degree AV block Right bundle branch block Left anterior fascicular block Confirmed by Tarik Cutler DO ([id number]) on 02/24/2024 4:19:26 PM Referred By: Electronically Signed By: Tarik Cutler DO Transcribed By: MUS Signed By Tarik Cutler DO [id number] Normal [facility] Erythrocyte distribution wid th [Ratio] by Automated countOrdered By: Tarik Cutler on 02-24-2024 Erythrocyte distribution width (RBC) [Ratio] 19.7 % High 11.9-15.3 [facility] Comment on above: Performed By: #### H S TROP, CBC, CMP, CK ####[place] [address] [address] Erythrocytes [#/volume] in B lood by Automated countOrdered By: Tarik Cutler on 02-24-2024 RBC (Bld) [#/Vol] 3.76 10*6/uL Normal 3.60-5.00 [facility] Comment on above: Performed By: #### H S TROP, CBC, CMP, CK ####[place] [address] [address] Glucose [Mass/volume] in Ser um or PlasmaOrdered By: Tarik Cutler on 02-24-2024 Glucose [Mass/Vol] 266 mg/dL High 70-100 [facility] Comment on above: ADA recommended refe rence rangeRandom Glucose Reference Range is dependent on time and content of last meal. Glucose of more than 200 mg/dL in a nonstressed, ambulatory subject supports the diagnosis of Diabetes Mellitus. Result Comment: [place] Glucose Reference Range is dependent on time and content of last meal. Glucose of more than 200 mg/dL in a nonstressed, ambulatory subject supports the diagnosis of Diabetes Mellitus. ADA recommended reference range Performed By: #### H S TROP, CBC, CMP, CK ####[place] [id number] [facility] Hematocrit [Volume Fraction] of Blood by Automated countOrdered By: Tarik Cutler on 02-24-2024 Hematocrit (Bld) [Volume fraction] 36.1 % Normal 34.0-46.4 [facility] Comment on above: Performed By: #### H S TROP, CBC, CMP, CK ####[place] [id number] [facility] Hemoglobin [Mass/volume] in BloodOrdered By: Tarik Cutler on 02-24-2024 Hemoglobin (Bld) [Mass/Vol] 11.0 g/dL Low 11.8-15.4 [facility] Comment on above: Performed By: #### H S TROP, CBC, CMP, CK ####[address] Leukocytes [#/volume] correc amalia for nucleated erythrocytes in Blood by Automated counOrdered By: Tarik Cutler on 02-24-2024 WBC corrected for nucl RBC Auto (Bld) [#/Vol] 6.1 10*3/uL 3.8-11.6 [facility] Leukocytes [#/volume] in Blo od by Automated countOrdered By: Tarik Cutler on 02-24-2024 WBC (Bld) [#/Vol] 6.1 10*3/uL Normal 3.8-11.6 [facility] Comment on above: Performed By: #### H S TROP, CBC, CMP, CK ####[address] Lymphocytes [#/volume] in Bl ood by Automated countOrdered By: Tarik Cutler on 02-24-2024 Lymphocytes (Bld) [#/Vol] 0.6 10*3/uL Low 1.00-4.8 [facility] Comment on above: Performed By: #### H S TROP, CBC, CMP, CK ####[address] Lymphocytes/100 leukocytes i n Blood by Automated countOrdered By: Tarik Cutler on 02-24-2024 Lymphocytes/100 WBC (Bld) 10.5 % Normal . [facility] Comment on above: Performed By: #### H S TROP, CBC, CMP, CK ####[address] MCH [Entitic mass] by Automa amalia countOrdered By: Tarik Cutler on 02-24-2024 MCH (RBC) [Entitic mass] 29.3 pg Normal 24.7-34.3 [facility] Comment on above: Performed By: #### H S TROP, CBC, CMP, CK ####[address] MCHC Auto (RBC) [Mass/Vol]Or dered By: Tarki Cutler on 02-24-2024 MCHC (RBC) [Mass/Vol] 30.5 g/dL Low 32.0-35.0 [facility] MCV [Entitic volume] by Auto mated countOrdered By: Tarik Cutler on 02-24-2024 MCV (RBC) [Entitic vol] 96.1 fL Normal 80-100 [facility] Comment on above: Performed By: #### H S TROP, CBC, CMP, CK ####[facility] [id number] Monocyte distribution width [Entitic volume] in Blood by AutomatedOrdered By: Tarik Cutler on 02-24-2024 Monocyte distribution width Auto (Bld) [Entitic vol] 18.94 % 0.00-20.00 [facility] Neutrophils [#/volume] in Bl ood by Automated countOrdered By: Tarik Cutler on 02-24-2024 Neutrophils (Bld) [#/Vol] 4.9 10*3/uL Normal 1.8-7.7 [facility] Comment on above: Performed By: #### H S TROP, CBC, CMP, CK ####[facility] [id number] [address] No Panel InformationOrdered By: Tarik Cutler on 02-24-2024 Estimated GFR (CKD-EPI) 11.582 mL/Min [facility] Creatinine Clearance (Chem 16.24 [facility] Nucleated erythrocytes [Pres ence] in Blood by Automated countOrdered By: Tarik Cutler on 02-24-2024 Nucleated RBC Auto Ql (Bld) 0.1 /100{WBC} 0-0.5 [facility] Platelet mean volume [Entiti c volume] in Blood by Automated countOrdered By: Tarik Cutler on 02-24-2024 Platelet mean volume (Bld) [Entitic vol] 9.0 fL Normal 6.3-10.7 [facility] Comment on above: Performed By: #### H S TROP, CBC, CMP, CK ####[address] Platelets [#/volume] in Bloo d by Automated countOrdered By: Tarik Cutler on 02-24-2024 Platelets (Bld) [#/Vol] 129 10*3/uL Low 150-450 [facility] Comment on above: Performed By: #### H S TROP, CBC, CMP, CK ####[address] Potassium [Moles/volume] in Serum or PlasmaOrdered By: Tarik Cutler on 02-24-2024 Potassium [Moles/Vol] 4.5 mmol/L Normal 3.5-5.1 [facility] Comment on above: Performed By: #### H S TROP, CBC, CMP, CK ####[address] Protein [Mass/volume] in Ser um or PlasmaOrdered By: Tarik Cutler on 02-24-2024 Protein [Mass/Vol] 6.6 g/dL Normal 6.4-8.9 [facility] Comment on above: Performed By: #### H S TROP, CBC, CMP, CK ####[address] Serum globulin measurement b y calculation (mass/volume)Ordered By: Tarik Cutler on 02-24-2024 Globulin (S) [Mass/Vol] 3.3 g/dL [facility] Comment on above: Performed By: #### H S TROP, CBC, CMP, CK ####[address] Serum or plasma albumin/glob ulin mass ratioOrdered By: Tarik Cutler on 02-24-2024 Albumin/Globulin [Mass ratio] 1.0 {ratio} [facility] Comment on above: Performed By: #### H S TROP, CBC, CMP, CK ####[address] Serum or plasma anion gap de terminationOrdered By: Tarik Cutler on 02-24-2024 Anion gap [Moles/Vol] 12.2 mmol/L Normal 6.0-15.0 [facility] Comment on above: Performed By: #### H S TROP, CBC, CMP, CK ####[place] [address] [place] [address] [facility] Sodium [Moles/volume] in Ser um or PlasmaOrdered By: Tarik Cutler on 02-24-2024 Sodium [Moles/Vol] 133 mmol/L Low 136-145 [facility] Comment on above: Performed By: #### H S TROP, CBC, CMP, CK ####[address] [address] [facility] Troponin I High Sensitivityo n 02-24-2024 Troponin I High Sensitivity 46.0 pg/mL High 0.0-15.0 [facility] Comment on above: Result Comment: PERF ORMED BY: [address] [place] [address] PATHOLOGIST MACHINE PROGRAMMER DILLON ASCENCIO M.D. Performed By: #### H S TROP ####[address] [address] [facility] Troponin I High Sensitivity 52.4 pg/mL Off scale high 0.0-15.0 [facility] Comment on above: Result Comment: Crit ical Result : Called to and read back by: PAULA BEST at: 02/24/2024 15:17:56 by:[id number] PERFORMED BY: [facility] [address] [place] [address] PATHOLOGIST MACHINE PROGRAMMER DILLON ASCENCIO M.D. Performed By: #### H S TROP, CBC, CMP, CK ####[address] [address] [facility] Troponin I.cardiac [Mass/vol ume] in Serum or Plasma by Detection limit <= 0.01 ng/Ordered By: Tarik Cutler on 02-24-2024 Troponin I.cardiac DL <= 0.01 ng/mL [Mass/Vol] 46.0 pg/mL High 0.0-15.0 [facility] Urea nitrogen [Mass/volume] in Serum or PlasmaOrdered By: Tarik Cutler on 02-24-2024 Urea nitrogen [Mass/Vol] 33 mg/dL High 11-23 [facility] Comment on above: Performed By: #### H S TROP, CBC, CMP, CK ####[facility] [id number] XR chest 1V portableon 02-23 XR chest 1V portable [facility] [address] [place] [address] XRay Report Signed Patient: Janay Schilling MR#: [id number] : 1950 Acct:[id number] Age/Sex: 74 / F ADM Date: 02/24/24 Loc: ER Room: Type: PRE ER Attending Dr: Copies to: Tarik Cutler DO Ordering Provider: Tarik Cutler DO Date of Service: 02/24/24 XR/XR chest 1V portable: Syncope Plain film chest Single view HISTORY: Near syncopal episode. COMPARISON: 02/11/2024 FINDINGS: SUPPORT DEVICES: None POSTSURGICAL CHANGES: None HEART: Within normal limits PULMONARY SAM: Within normal limits MEDIASTINUM: Unremarkable LUNGS AND PLEURA: No acute lung process, pleural effusion or pneumothorax identified. Similar moderate right hemidiaphragm elevation BONY STRUCTURES: Intact ADDITIONAL FINDINGS None XR/XR chest 1V portable IMPRESSION: No acute process. Impression dictated by: Eyal Stiles M.D.02/24/2024 2:15 PM Dictation Location: [place] [address] Transcribed By: [facility] 02/24/24 141 Dictated By: Eyal Stiles DO 02/24/241413 Signed By: 02/24/24 141 Normal [facility] Alanine aminotransferase [En zymatic activity/volume] in Serum or PlasmaOrdered By: Sung Crocker on 02-11-2024 ALT [Catalytic activity/Vol] 25 U/L Normal [facility] Comment on above: Performed By: #### H S TROP, BMP, CBC, CK, HEPATIC, BNP, PT ####[address] Albumin [Mass/volume] in Ser um or Plasma by Bromocresol green (BCG) dye binding methoOrdered By: Sung Crocker on 02-11-2024 Albumin BCG dye [Mass/Vol] 3.2 g/dL Low 3.5-5.7 [facility] Alkaline phosphatase [Enzyma tic activity/volume] in Serum or PlasmaOrdered By: Sung Crocker on 02-11-2024 ALP [Catalytic activity/Vol] 83 U/L Normal 34-104 [facility] Comment on above: Performed By: #### H S TROP, BMP, CBC, CK, HEPATIC, BNP, PT ####[address] Aspartate aminotransferase [ Enzymatic activity/volume] in Serum or PlasmaOrdered By: Sung Crocker on 02-11-2024 AST [Catalytic activity/Vol] 17 U/L Normal 13-39 [facility] Comment on above: Performed By: #### H S TROP, BMP, CBC, CK, HEPATIC, BNP, PT ####[address] Automated basophil %Ordered By: Sung Crocker on 02-11-2024 Basophils/100 WBC (Bld) 1.1 % Normal . [facility] Comment on above: Performed By: #### H S TROP, BMP, CBC, CK, HEPATIC, BNP, PT ####[address] Automated basophil countOrde red By: Sung Crocker on 02-11-2024 Basophils (Bld) [#/Vol] 0.1 10*3/uL Normal 0.0-0.2 [facility] Comment on above: Result Comment: PERF ORMED BY: [facility] [address] [place] [address] PATHOLOGIST MACHINE PROGRAMMER DILLON ASCENCIO M.D. Performed By: #### H S TROP, BMP, CBC, CK, HEPATIC, BNP, PT ####[address] Automated blood monocyte cou ntOrdered By: Sung Crocker on 02-11-2024 Monocytes (Bld) [#/Vol] 0.4 10*3/uL Normal 0.0-0.8 [facility] Comment on above: Performed By: #### H S TROP, BMP, CBC, CK, HEPATIC, BNP, PT ####[address] Automated eosinophil %Ordere d By: Sung Crocker on 02-11-2024 Eosinophils/100 WBC (Bld) 3.9 % Normal . [facility] Comment on above: Performed By: #### H S TROP, BMP, CBC, CK, HEPATIC, BNP, PT ####[address] Automated eosinophil countOr dered By: Sung Crocker on 02-11-2024 Eosinophils (Bld) [#/Vol] 0.3 10*3/uL Normal 0.0-0.45 [facility] Comment on above: Performed By: #### H S TROP, BMP, CBC, CK, HEPATIC, BNP, PT ####[address] Automated monocyte %Ordered By: Sung Crocker on 02-11-2024 Monocytes/100 WBC (Bld) 6.4 % Normal . [facility] Comment on above: Performed By: #### H S TROP, BMP, CBC, CK, HEPATIC, BNP, PT ####[address] Automated neutrophil %Ordere d By: Sung Crocker on 02-11-2024 Neutrophils/100 WBC (Bld) 75.7 % Normal . [facility] Comment on above: Performed By: #### H S TROP, BMP, CBC, CK, HEPATIC, BNP, PT ####[address] BNP ser/plasOrdered By: Lashon Crocker on 02-11-2024 Natriuretic peptide B (Bld) [Mass/Vol] 477.0 pg/mL High 5-100 [facility] Comment on above: Result Comment: PERF ORMED BY: [facility] [address] [place] [address] PATHOLOGIST MACHINE PROGRAMMER DILLON ASCENCIO M.D. Performed By: #### H S TROP, BMP, CBC, CK, HEPATIC, BNP, PT ####[place] [id number] [facility] Basic Metabolic Panelon 01-30 Creatinine Clr Calc Pharmacy 17.58 Normal [facility] Comment on above: Result Comment: PERF ORMED BY: [facility] [address] [place] [id number] PATHOLOGIST MACHINE PROGRAMMER DILLON ASCENCIO M.D. Performed By: #### H S TROP, BMP, CBC, CK, HEPATIC, BNP, PT ####[address] GFR/1.73 sq M.predicted MDRD (S/P/Bld) [Vol rate/Area] 13.844 mL/min/{1.73_m2} Normal [facility] Comment on above: Performed By: #### H S TROP, BMP, CBC, CK, HEPATIC, BNP, PT ####[address] Bilirubin.direct [Mass/volum e] in Serum or PlasmaOrdered By: Sung Crocker on 02-11-2024 Bilirubin.direct [Mass/Vol] 0.10 mg/dL 0.03-0.18 [facility] Bilirubin.total [Mass/volume ] in Serum or PlasmaOrdered By: Sung Crocker on 02-11-2024 Bilirubin [Mass/Vol] 0.3 mg/dL Normal 0.3-1.[address] [facility] Comment on above: Performed By: #### H S TROP, BMP, CBC, CK, HEPATIC, BNP, PT ####[place] [id number] [facility] Calcium [Mass/volume] in Ser um or PlasmaOrdered By: Sung Crocker on 02-11-2024 Calcium [Mass/Vol] 8.0 mg/dL Low 8.6-10.3 [facility] Comment on above: Performed By: #### H S TROP, BMP, CBC, CK, HEPATIC, BNP, PT ####[place] [address] [place] [id number] [facility] Capillary blood glucose ely urement by glucometer (mass/volume)Ordered By: Sung Crocker on 02-11-2024 Glucose [Mass/Vol] 154 mg/dL Normal [facility] Comment on above: Random Glucose Refer ence Range is dependent on time and content of last meal. Glucose of more than 200 mg/dL in a nonstressed, ambulatory subject supports the diagnosis of Diabetes Mellitus. Result Comment: [place] Glucose Reference Range is dependent on time and content of last meal. Glucose of more than 200 mg/dL in a nonstressed, ambulatory subject supports the diagnosis of Diabetes Mellitus. PERFORMED BY: [facility] [address] [place] [address] PATHOLOGIST MACHINE PROGRAMMER DILLON ASCENCIO M.D. Performed By: #### G MARY ANN ####Point of Care testing, Carbon dioxide, total [Moles /volume] in Serum or PlasmaOrdered By: Sung Crocker on 02-11-2024 CO2 [Moles/Vol] 27.5 mmol/L Normal 21.0-31.0 [facility] Comment on above: Performed By: #### H S TROP, BMP, CBC, CK, HEPATIC, BNP, PT ####[place] [address] [place] [id number] [facility] Chloride [Moles/volume] in S terrie or PlasmaOrdered By: Sung Crocker on 02-11-2024 Chloride [Moles/Vol] 100 mmol/L Normal 98-[address] [facility] Comment on above: Performed By: #### H S TROP, BMP, CBC, CK, HEPATIC, BNP, PT ####[place] [id number] [facility] Complete Blood Count Auto Di ffon 02-11-2024 Mean Corpuscular HGB Conc 31.4 g/dL Low 32.0-35.0 [facility] Comment on above: Performed By: #### H S TROP, BMP, CBC, CK, HEPATIC, BNP, PT ####[place] [address] [place] [id number] [place] Monocytes/100 WBC (Bld) 19.69 % Normal 0.00-20.00 [facility] Comment on above: Performed By: #### H S TROP, BMP, CBC, CK, HEPATIC, BNP, PT ####[place] [address] [address] NRBC% 0.1 /100{WBC} Normal 0-0.5 [facility] Comment on above: Performed By: #### H S TROP, BMP, CBC, CK, HEPATIC, BNP, PT ####[place] [address] [address] Creatine kinase [Enzymatic a ctivity/volume] in Serum or PlasmaOrdered By: Sung Crocker on 02-11-2024 CK [Catalytic activity/Vol] 18 U/L Low 30-223 [facility] Comment on above: Performed By: #### H S TROP, BMP, CBC, CK, HEPATIC, BNP, PT ####[place] [id number] [facility] Creatinine [Mass/volume] in Serum or PlasmaOrdered By: Sung Crocker on 02-11-2024 Creatinine [Mass/Vol] 3.37 mg/dL High 0.60-1.20 [facility] Comment on above: Performed By: #### H S TROP, BMP, CBC, CK, HEPATIC, BNP, PT ####[place] [id number] [facility] ECG 12 lead ECGon 02-11-2024 ECG 12 lead ECG [facility] [address] [place] [address] Electrocardiograph Report Signed Patient: Janay Schilling MR#: [id number] : 1950 Acct:[id number] Age/Sex: 74 / F ADM Date: 02/11/24 Loc: ER Room: Type: [facility] ER Attending Dr: Ordering Provider: Sung Crocker DO Date of Service: 02/11/2404/24/1018 ECG/ECG 12 lead ECG: CHEST PAIN Copies to: Test Reason : Blood Pressure : */* mmHG Vent. Rate : 62 BPM Atrial Rate : 62 BPM P-R Int : 250 ms QRS Dur : 172 ms QT Int : 500 ms P-R-T Axes : 56 -73 59 degrees QTcB Int : 507 ms Sinus rhythm with 1st degree AV block Right bundle branch block Left anterior fascicular block Bifascicular block Minimal voltage criteria for LVH, may be normal variant Abnormal ECG When compared with ECG of 14-Jan-2024 08:29, No significant change was found Confirmed by Sung Crocker DO ([id number]) on 02/11/2024 7:37:08 PM Referred By: Electronically Signed By: Sung Crocker DO Transcribed By: MUS Signed By Sung Crocker DO 1936 Normal [facility] Erythrocyte distribution wid th [Ratio] by Automated countOrdered By: Sung Crocker on 02-11-2024 Erythrocyte distribution width (RBC) [Ratio] 19.1 % High 11.9-15.3 [facility] Comment on above: Performed By: #### H S TROP, BMP, CBC, CK, HEPATIC, BNP, PT ####[facility] [id number] [place] [id number] [facility] Erythrocytes [#/volume] in B lood by Automated countOrdered By: Sung Crocker on 02-11-2024 RBC (Bld) [#/Vol] 3.49 10*6/uL Low 3.60-5.00 [facility] Comment on above: Performed By: #### H S TROP, BMP, CBC, CK, HEPATIC, BNP, PT ####[facility] [id number] [place] [address] [facility] Glucose [Mass/volume] in Ser um or PlasmaOrdered By: Sung Crocker on 02-11-2024 Glucose [Mass/Vol] 184 mg/dL High 70-100 [facility] Comment on above: ADA recommended refe rence rangeRandom Glucose Reference Range is dependent on time and content of last meal. Glucose of more than 200 mg/dL in a nonstressed, ambulatory subject supports the diagnosis of Diabetes Mellitus. Result Comment: [facility] Glucose Reference Range is dependent on time and content of last meal. Glucose of more than 200 mg/dL in a nonstressed, ambulatory subject supports the diagnosis of Diabetes Mellitus. ADA recommended reference range Performed By: #### H S TROP, BMP, CBC, CK, HEPATIC, BNP, PT ####[address] Hematocrit [Volume Fraction] of Blood by Automated countOrdered By: Sung Crocker on 02-11-2024 Hematocrit (Bld) [Volume fraction] 33.6 % Low 34.0-46.4 [facility] Comment on above: Performed By: #### H S TROP, BMP, CBC, CK, HEPATIC, BNP, PT ####[address] Hemoglobin [Mass/volume] in BloodOrdered By: Sung Crocker on 02-11-2024 Hemoglobin (Bld) [Mass/Vol] 10.6 g/dL Low 11.8-15.4 [facility] Comment on above: Performed By: #### H S TROP, BMP, CBC, CK, HEPATIC, BNP, PT ####[address] Hepatic Panelon 02-11-2024 Albumin [Mass/Vol] 3.2 g/dL Low 3.5-5.7 [facility] Comment on above: Performed By: #### H S TROP, BMP, CBC, CK, HEPATIC, BNP, PT ####[address] Bilirubin,Indirect 0.2 mg/dL Normal [facility] Comment on above: Performed By: #### H S TROP, BMP, CBC, CK, HEPATIC, BNP, PT ####[address] Bilirubin.indirect [Mass/Vol] 0.10 mg/dL Normal 0.03-0.18 [facility] Comment on above: Performed By: #### H S TROP, BMP, CBC, CK, HEPATIC, BNP, PT ####[address] [place] [address] [facility] INR in Platelet poor plasma by Coagulation assayOrdered By: Sung Crocker on 02-11-2024 INR Coag (PPP) [Relative time] 1.0 {INR} Normal [facility] Comment on above: INR Therapeutic Rang e A) Pre- and Peroperative OAT started two weeks before surgery. NOT HIP SURGERY: 1.5 - 2.5 HIP SURGERY: 2 - 3B) Primary and secondary prevention of venous THROMBOSIS: 2 - 3C) Active venous thrombosis, pulmonary embolismand prevention of recurrent venous thrombosis: 2 - 3D) Prevention of arterial thromboembolismincluding patients with mechanical heart valves: 3 - 4.5 Result Comment: INR Therapeutic Range A) Pre- and Peroperative OAT started two weeks before surgery. NOT HIP SURGERY: 1.5 - 2.5 HIP SURGERY: 2 - 3 B) Primary and secondary prevention of venous THROMBOSIS: 2 - 3 C) Active venous thrombosis, pulmonary embolism and prevention of recurrent venous thrombosis: 2 - 3 D) Prevention of arterial thromboembolism including patients with mechanical heart valves: 3 - 4.5 PERFORMED BY: [facility] [address] [place] [id number] PATHOLOGIST MACHINE PROGRAMMER DILLON ASCENCIO M.D. Performed By: #### H S TROP, BMP, CBC, CK, HEPATIC, BNP, PT ####[place] [address] [place] [address] [facility] Leukocytes [#/volume] correc amalia for nucleated erythrocytes in Blood by Automated counOrdered By: Sung Crocker on 02-11-2024 WBC corrected for nucl RBC Auto (Bld) [#/Vol] 6.8 10*3/uL 3.8-11.6 [facility] Leukocytes [#/volume] in Blo od by Automated countOrdered By: Sung Crocker on 02-11-2024 WBC (Bld) [#/Vol] 6.8 10*3/uL Normal 3.8-11.6 [facility] Comment on above: Performed By: #### H S TROP, BMP, CBC, CK, HEPATIC, BNP, PT ####[place] [address] [place] [address] [place] Lymphocytes [#/volume] in Bl ood by Automated countOrdered By: Sung Crocker on 02-11-2024 Lymphocytes (Bld) [#/Vol] 0.9 10*3/uL Low 1.00-4.8 [facility] Comment on above: Performed By: #### H S TROP, BMP, CBC, CK, HEPATIC, BNP, PT ####[place] [id number] Lymphocytes/100 leukocytes i n Blood by Automated countOrdered By: Sung Crocker on 02-11-2024 Lymphocytes/100 WBC (Bld) 12.9 % Normal . [facility] Comment on above: Performed By: #### H S TROP, BMP, CBC, CK, HEPATIC, BNP, PT ####[place] [address] MCH [Entitic mass] by Automa amalia countOrdered By: Sung Crocker on 02-11-2024 MCH (RBC) [Entitic mass] 30.2 pg Normal 24.7-34.3 [facility] Comment on above: Performed By: #### H S TROP, BMP, CBC, CK, HEPATIC, BNP, PT ####[address] MCHC Auto (RBC) [Mass/Vol]Or dered By: Sung Crocker on 02-11-2024 MCHC (RBC) [Mass/Vol] 31.4 g/dL Low 32.0-35.0 [facility] MCV [Entitic volume] by Auto mated countOrdered By: Sung Crocker on 02-11-2024 MCV (RBC) [Entitic vol] 96.2 fL Normal 80-100 [facility] Comment on above: Performed By: #### H S TROP, BMP, CBC, CK, HEPATIC, BNP, PT ####[address] Monocyte distribution width [Entitic volume] in Blood by AutomatedOrdered By: Sung Crocker on 02-11-2024 Monocyte distribution width Auto (Bld) [Entitic vol] 19.69 % 0.00-20.00 [facility] Neutrophils [#/volume] in Bl ood by Automated countOrdered By: Sung Crocker on 02-11-2024 Neutrophils (Bld) [#/Vol] 5.1 10*3/uL Normal 1.8-7.7 [facility] Comment on above: Performed By: #### H S TROP, BMP, CBC, CK, HEPATIC, BNP, PT ####[facility] [id number] No Panel InformationOrdered By: Sung Crocker on 02-11-2024 Estimated GFR (CKD-EPI) 13.844 mL/Min [facility] Creatinine Clearance (Chem 17.58 [facility] Nucleated erythrocytes [Pres ence] in Blood by Automated countOrdered By: Sung Crocker on 02-11-2024 Nucleated RBC Auto Ql (Bld) 0.1 /100{WBC} 0-0.5 [facility] Platelet mean volume [Entiti c volume] in Blood by Automated countOrdered By: Sung Crocker on 02-11-2024 Platelet mean volume (Bld) [Entitic vol] 9.3 fL Normal 6.3-10.7 [facility] Comment on above: Performed By: #### H S TROP, BMP, CBC, CK, HEPATIC, BNP, PT ####[place] [id number] [address] Platelets [#/volume] in Bloo d by Automated countOrdered By: Sung Crocker on 02-11-2024 Platelets (Bld) [#/Vol] 159 10*3/uL Normal 150-450 [facility] Comment on above: Performed By: #### H S TROP, BMP, CBC, CK, HEPATIC, BNP, PT ####[place] [id number] [address] Potassium [Moles/volume] in Serum or PlasmaOrdered By: Sung Crocker on 02-11-2024 Potassium [Moles/Vol] 4.0 mmol/L Normal 3.5-5.1 [facility] Comment on above: Performed By: #### H S TROP, BMP, CBC, CK, HEPATIC, BNP, PT ####[place] [address] [address] Protein [Mass/volume] in Ser um or PlasmaOrdered By: Sung Crocker on 02-11-2024 Protein [Mass/Vol] 6.3 g/dL Low 6.4-8.9 [facility] Comment on above: Performed By: #### H S TROP, BMP, CBC, CK, HEPATIC, BNP, PT ####[address] Prothrombin time (PT)Ordered By: Sung Crocker on 02-11-2024 PT Coag (PPP) [Time] 12.0 s Normal 9.0-12.[address] [facility] Comment on above: A hematocrit value g reater than 55% may lead to inaccurate results in coagulation testing. Patients having hematocrit values >55% require a special collection tube for coagulation studies. Please contact the laboratory at [phone] for redraw instructions. Result Comment: A he matocrit value greater than 55% may lead to inaccurate results in coagulation testing. Patients having hematocrit values >55% require a special collection tube for coagulation studies. Please contact the laboratory at [phone] for redraw instructions. Performed By: #### H S TROP, BMP, CBC, CK, HEPATIC, BNP, PT ####[place] [id number] [address] Serum globulin measurement b y calculation (mass/volume)Ordered By: Sung Crocker on 02-11-2024 Globulin (S) [Mass/Vol] 3.1 g/dL [facility] Comment on above: Performed By: #### H S TROP, BMP, CBC, CK, HEPATIC, BNP, PT ####[address] Serum or plasma albumin/glob ulin mass ratioOrdered By: Sung Crocker on 02-11-2024 Albumin/Globulin [Mass ratio] 1.0 {ratio} [facility] Comment on above: Performed By: #### H S TROP, BMP, CBC, CK, HEPATIC, BNP, PT ####[address] Serum or plasma anion gap de terminationOrdered By: Sung Crocker on 02-11-2024 Anion gap [Moles/Vol] 10.5 mmol/L Normal 6.0-15.0 [facility] Comment on above: Performed By: #### H S TROP, BMP, CBC, CK, HEPATIC, BNP, PT ####[place] [phone] [address] Serum or plasma non-glucuron idated bilirubin measurement (mass/volume)Ordered By: Sung Crocker on 02-11-2024 Bilirubin.indirect [Mass/Vol] 0.2 mg/dL [facility] Sodium [Moles/volume] in Ser um or PlasmaOrdered By: Sung Crocker on 02-11-2024 Sodium [Moles/Vol] 134 mmol/L Low 136-145 [facility] Comment on above: Performed By: #### H S TROP, BMP, CBC, CK, HEPATIC, BNP, PT ####[address] Troponin I High Sensitivityo n 02-11-2024 Troponin I High Sensitivity 33.4 pg/mL High 0.0-15.0 [facility] Comment on above: Result Comment: PERF ORMED BY: [facility] [address] [place] [address] PATHOLOGIST MACHINE PROGRAMMER DILLON ASCENCIO M.D. Performed By: #### H S TROP ####[address] Troponin I High Sensitivity 32.9 pg/mL High 0.0-15.0 [facility] Comment on above: Result Comment: PERF ORMED BY: [facility] [address] [place] [address] PATHOLOGIST MACHINE PROGRAMMER DILLON ASCENCIO M.D. Performed By: #### H S TROP, BMP, CBC, CK, HEPATIC, BNP, PT ####[place] [id number] [facility] Troponin I.cardiac [Mass/vol ume] in Serum or Plasma by Detection limit <= 0.01 ng/Ordered By: Sung Crocker on 02-11-2024 Troponin I.cardiac DL <= 0.01 ng/mL [Mass/Vol] 33.4 pg/mL High 0.0-15.0 [facility] Urea nitrogen [Mass/volume] in Serum or PlasmaOrdered By: Sung Crocker on 02-11-2024 Urea nitrogen [Mass/Vol] 28 mg/dL High 7-25 [facility] Comment on above: Performed By: #### H S TROP, BMP, CBC, CK, HEPATIC, BNP, PT ####[facility] [address] XR chest 1V portableon 02-10 XR chest 1V portable [facility] [address] [place] [address] [place] [address] XRay Report Signed Patient: Janay Schilling MR#: [id number] : 1950 Acct:[id number] Age/Sex: 74 / F ADM Date: 02/11/24 Loc: ER Room: Type: [facility] ER Attending Dr: Copies to: Sung Crocker DO Ordering Provider: Sung Crocker DO Date of Service: 02/11/24 XR/XR chest 1V portable: CHEST PAIN XR chest 1V portable 02/11/2024 10:19 AM SIGNS AND SYMPTOMS: Chest pain PROTOCOL: Frontal radiograph of the chest COMPARISON: 01/14/2024 FINDINGS: The trachea is midline. Atherosclerotic changes are noted in the thoracic aorta. Chronic appearing pleural-parenchymal opacities are noted in the lung bases with linear scarring adjacent to the left heart border. There is cardiomegaly which is unchanged. The bony thorax is intact. Degenerative changes are present in the thoracic spine. XR/XR chest 1V portable IMPRESSION: There is cardiomegaly. Pleura multiple opacities are noted in the lung bases with linear scarring near the left heart border similar to the prior exam.. Impression dictated by: Ahsan Modi M.D.02/11/2024 11:09 AM Dictation Location: [place] [address] Transcribed By: [facility] 02/11/24 1100 Dictated By: Ahsan Modi II, MD 02/11/24 1107 Signed By: 02/11/24 1109 Normal [facility] Activated partial thrombopla stin time (aPTT) in platelet poor plasma by coagulation aOrdered By: Debora Griffin on 01-14-2024 aPTT Coag (PPP) [Time] 26.0 s 25.1-36.5 [facility] Comment on above: A hematocrit value g reater than 55% may lead to inaccurate results in coagulation testing. Patients having hematocrit values >55% require a special collection tube for coagulation studies. Please contact the laboratory at [phone] for redraw instructions. Automated basophil %Ordered By: Debora Griffin on 01-14-2024 Basophils/100 WBC (Bld) 1.3 % Normal . [facility] Comment on above: Performed By: #### P T, PTT, BMP, BNP, CK, CBC, HS TROP #### [facility] [address] [place] [address] Automated basophil countOrde red By: Debora Griffin on 01-14-2024 Basophils (Bld) [#/Vol] 0.1 10*3/uL Normal 0.0-0.2 [facility] Comment on above: Result Comment: PERF ORMED BY: [place] [address] PATHOLOGIST MACHINE PROGRAMMER DILLON ASCENCIO M.D. Performed By: #### P T, PTT, BMP, BNP, CK, CBC, HS TROP #### [facility] [address] [place] [address] Automated blood monocyte cou ntOrdered By: Debora Griffin on 01-14-2024 Monocytes (Bld) [#/Vol] 0.4 10*3/uL Normal 0.0-0.8 [facility] Comment on above: Performed By: #### P T, PTT, BMP, BNP, CK, CBC, HS TROP #### [facility] [address] [place] [address] Automated eosinophil %Ordere d By: Debora Griffin on 01-14-2024 Eosinophils/100 WBC (Bld) 3.8 % Normal . [facility] Comment on above: Performed By: #### P T, PTT, BMP, BNP, CK, CBC, HS TROP #### [address] Automated eosinophil countOr dered By: Debora Elias on 01-14-2024 Eosinophils (Bld) [#/Vol] 0.2 10*3/uL Normal 0.0-0.45 [facility] Comment on above: Performed By: #### P T, PTT, BMP, BNP, CK, CBC, HS TROP #### [address] Automated monocyte %Ordered By: Debora Griffin on 01-14-2024 Monocytes/100 WBC (Bld) 5.8 % Normal . [facility] Comment on above: Performed By: #### P T, PTT, BMP, BNP, CK, CBC, HS TROP #### [address] Automated neutrophil %Ordere d By: Debora Griffin on 01-14-2024 Neutrophils/100 WBC (Bld) 77.3 % Normal . [facility] Comment on above: Performed By: #### P T, PTT, BMP, BNP, CK, CBC, HS TROP #### [address] BNP ser/plasOrdered By: Braden Griffin on 01-14-2024 Natriuretic peptide B (Bld) [Mass/Vol] 333.0 pg/mL High 5-100 [facility] Comment on above: Result Comment: PERF ORMED BY: [place] [address] PATHOLOGIST MACHINE PROGRAMMER DILLON ASCENCIO M.D. Performed By: #### P T, PTT, BMP, BNP, CK, CBC, HS TROP #### [address] Basic Metabolic Panelon 12-31 Creatinine Clr Calc Pharmacy 9.29 Normal [facility] Comment on above: Result Comment: PERF ORMED BY: [place] [address] PATHOLOGIST MACHINE PROGRAMMER DILLON ASCENCIO M.D. Performed By: #### P T, PTT, BMP, BNP, CK, CBC, HS TROP #### [address] GFR/1.73 sq M.predicted MDRD (S/P/Bld) [Vol rate/Area] 6.501 mL/min/{1.73_m2} Normal [facility] Comment on above: Performed By: #### P T, PTT, BMP, BNP, CK, CBC, HS TROP #### [address] Calcium [Mass/volume] in Ser um or PlasmaOrdered By: Debora Griffin on 01-14-2024 Calcium [Mass/Vol] 8.1 mg/dL Low 8.6-10.3 [facility] Comment on above: Performed By: #### P T, PTT, BMP, BNP, CK, CBC, HS TROP #### [address] Carbon dioxide, total [Moles /volume] in Serum or PlasmaOrdered By: Debora Griffin on 01-14-2024 CO2 [Moles/Vol] 22.3 mmol/L Normal 21.0-31.0 [facility] Comment on above: Performed By: #### P T, PTT, BMP, BNP, CK, CBC, HS TROP #### [address] Chloride [Moles/volume] in S terrie or PlasmaOrdered By: Debora Griffin on 01-14-2024 Chloride [Moles/Vol] 99 mmol/L Normal 98-[address] [facility] Comment on above: Performed By: #### P T, PTT, BMP, BNP, CK, CBC, HS TROP #### [address] Complete Blood Count Auto Di ffon 01-14-2024 Mean Corpuscular HGB Conc 31.1 g/dL Low 32.0-35.0 [facility] Comment on above: Performed By: #### P T, PTT, BMP, BNP, CK, CBC, HS TROP #### [place] [address] [place] Monocytes/100 WBC (Bld) 18.83 % Normal 0.00-20.00 [facility] Comment on above: Performed By: #### P T, PTT, BMP, BNP, CK, CBC, HS TROP #### [address] NRBC% 0.1 /100{WBC} Normal 0-0.5 [facility] Comment on above: Performed By: #### P T, PTT, BMP, BNP, CK, CBC, HS TROP #### [address] Creatine kinase [Enzymatic a ctivity/volume] in Serum or PlasmaOrdered By: Debora Griffin on 01-14-2024 CK [Catalytic activity/Vol] 22 U/L Low 30-223 [facility] Comment on above: Performed By: #### P T, PTT, BMP, BNP, CK, CBC, HS TROP #### [address] Creatinine [Mass/volume] in Serum or PlasmaOrdered By: Debora Griffin on 01-14-2024 Creatinine [Mass/Vol] 6.36 mg/dL High 0.60-1.20 [facility] Comment on above: Performed By: #### P T, PTT, BMP, BNP, CK, CBC, HS TROP #### [address] ECG 12 lead ECGon 01-14-2024 ECG 12 lead ECG [facility] [place] [address] Electrocardiograph Report Signed Patient: Janay Schilling MR#: [id number] : 1950 Acct:[id number] Age/Sex: 73 / F ADM Date: 01/14/24 Loc: ER Room: Type: [facility] ER Attending Dr: Ordering Provider: Debora Griffin MD Date of Service: 01/14/24 ECG/ECG 12 lead ECG: Chest Pain Copies to: Test Reason : Blood Pressure : */* mmHG Vent. Rate : 72 BPM Atrial Rate : 72 BPM P-R Int : 260 ms QRS Dur : 174 ms QT Int : 452 ms P-R-T Axes : 49 -70 60 degrees QTcB Int : 494 ms Sinus rhythm with 1st degree AV block Right bundle branch block Left anterior fascicular block Bifascicular block Moderate voltage criteria for LVH, may be normal variant Abnormal ECG When compared with ECG of 25-May-2008 12:10, MT interval has increased Right bundle branch block is now present Confirmed by DEBORA GRIFFIN MD ([id number]) on 01/14/2024 3:17:44 PM Referred By: Electronically Signed By: DEBORA GRIFFIN MD Transcribed By: MUS Signed By Debora Griffin MD 12/31 08/23 1517 Normal [facility] Erythrocyte distribution wid th [Ratio] by Automated countOrdered By: Debora Griffin on 01-14-2024 Erythrocyte distribution width (RBC) [Ratio] 19.4 % High 11.9-15.3 [facility] Comment on above: Performed By: #### P T, PTT, BMP, BNP, CK, CBC, HS TROP #### [facility] [address] Erythrocytes [#/volume] in B lood by Automated countOrdered By: Debora Griffin on 01-14-2024 RBC (Bld) [#/Vol] 3.24 10*6/uL Low 3.60-5.00 [facility] Comment on above: Performed By: #### P T, PTT, BMP, BNP, CK, CBC, HS TROP #### [facility] [address] Glucose [Mass/volume] in Ser um or PlasmaOrdered By: Debora Griffin on 01-14-2024 Glucose [Mass/Vol] 201 mg/dL High 70-100 [facility] Comment on above: ADA recommended refe rence rangeRandom Glucose Reference Range is dependent on time and content of last meal. Glucose of more than 200 mg/dL in a nonstressed, ambulatory subject supports the diagnosis of Diabetes Mellitus. Result Comment: [place] Glucose Reference Range is dependent on time and content of last meal. Glucose of more than 200 mg/dL in a nonstressed, ambulatory subject supports the diagnosis of Diabetes Mellitus. ADA recommended reference range Performed By: #### P T, PTT, BMP, BNP, CK, CBC, HS TROP #### [facility] [address] Hematocrit [Volume Fraction] of Blood by Automated countOrdered By: Debora Griffin on 01-14-2024 Hematocrit (Bld) [Volume fraction] 32.7 % Low 34.0-46.4 [facility] Comment on above: Performed By: #### P T, PTT, BMP, BNP, CK, CBC, HS TROP #### [facility] [address] Hemoglobin [Mass/volume] in BloodOrdered By: Debora Griffin on 01-14-2024 Hemoglobin (Bld) [Mass/Vol] 10.2 g/dL Low 11.8-15.4 [facility] Comment on above: Performed By: #### P T, PTT, BMP, BNP, CK, CBC, HS TROP #### [facility] [address] INR in Platelet poor plasma by Coagulation assayOrdered By: Debora Griffin on 01-14-2024 INR Coag (PPP) [Relative time] 0.9 {INR} Normal [facility] Comment on above: INR Therapeutic Rang e A) Pre- and Peroperative OAT started two weeks before surgery. NOT HIP SURGERY: 1.5 - 2.5 HIP SURGERY: 2 - 3B) Primary and secondary prevention of venous THROMBOSIS: 2 - 3C) Active venous thrombosis, pulmonary embolismand prevention of recurrent venous thrombosis: 2 - 3D) Prevention of arterial thromboembolismincluding patients with mechanical heart valves: 3 - 4.5 Result Comment: INR Therapeutic Range A) Pre- and Peroperative OAT started two weeks before surgery. NOT HIP SURGERY: 1.5 - 2.5 HIP SURGERY: 2 - 3 B) Primary and secondary prevention of venous THROMBOSIS: 2 - 3 C) Active venous thrombosis, pulmonary embolism and prevention of recurrent venous thrombosis: 2 - 3 D) Prevention of arterial thromboembolism including patients with mechanical heart valves: 3 - 4.5 Performed By: #### P T, PTT, BMP, BNP, CK, CBC, HS TROP #### [address] Leukocytes [#/volume] correc amalia for nucleated erythrocytes in Blood by Automated counOrdered By: Debora Griffin on 01-14-2024 WBC corrected for nucl RBC Auto (Bld) [#/Vol] 6.4 10*3/uL 3.8-11.6 [facility] Leukocytes [#/volume] in Blo od by Automated countOrdered By: Debora Griffin on 01-14-2024 WBC (Bld) [#/Vol] 6.4 10*3/uL Normal 3.8-11.6 [facility] Comment on above: Performed By: #### P T, PTT, BMP, BNP, CK, CBC, HS TROP #### [address] Lymphocytes [#/volume] in Bl ood by Automated countOrdered By: Debora Griffin on 01-14-2024 Lymphocytes (Bld) [#/Vol] 0.8 10*3/uL Low 1.00-4.8 [facility] Comment on above: Performed By: #### P T, PTT, BMP, BNP, CK, CBC, HS TROP #### [address] Lymphocytes/100 leukocytes i n Blood by Automated countOrdered By: Debora Griffin on 01-14-2024 Lymphocytes/100 WBC (Bld) 11.8 % Normal . [facility] Comment on above: Performed By: #### P T, PTT, BMP, BNP, CK, CBC, HS TROP #### [address] MCH [Entitic mass] by Automa amalia countOrdered By: Debora Griffin on 01-14-2024 MCH (RBC) [Entitic mass] 31.3 pg Normal 24.7-34.3 [facility] Comment on above: Performed By: #### P T, PTT, BMP, BNP, CK, CBC, HS TROP #### [address] MCHC Auto (RBC) [Mass/Vol]Or dered By: Debora Griffin on 01-14-2024 MCHC (RBC) [Mass/Vol] 31.1 g/dL Low 32.0-35.0 [facility] MCV [Entitic volume] by Auto mated countOrdered By: Debora Griffin on 01-14-2024 MCV (RBC) [Entitic vol] 100.7 fL High 80-100 [facility] Comment on above: Performed By: #### P T, PTT, BMP, BNP, CK, CBC, HS TROP #### [facility] [address] [place] [address] [place] Monocyte distribution width [Entitic volume] in Blood by AutomatedOrdered By: Debora Griffin on 01-14-2024 Monocyte distribution width Auto (Bld) [Entitic vol] 18.83 % 0.00-20.00 [facility] Neutrophils [#/volume] in Bl ood by Automated countOrdered By: Debora Griffin on 01-14-2024 Neutrophils (Bld) [#/Vol] 5.0 10*3/uL Normal 1.8-7.7 [facility] Comment on above: Performed By: #### P T, PTT, BMP, BNP, CK, CBC, HS TROP #### [facility] [address] No Panel InformationOrdered By: Debora Griffin on 01-14-2024 Blood Gas Critical Value See comment [facility] Comment on above: Critical Value cates d on: 01/14/2024 at 09:34 Blood Gas Sample Site Venous [facility] FiO2 Na % [facility] Venous Blood Base Excess -6.7 mmol/L Low -3.0-3.0 [facility] Venous Blood Oxygen Content 6.1 mmol/L Low 6.6-9.7 [facility] Venous Blood Oxygen Saturation 87.4 % High 73.0-76.0 [facility] Venous Blood Partial Pressure CO2 48.4 mm[Hg] 38.0-50.0 [facility] Venous Blood Partial Pressure O2 59.6 mm[Hg] High 35.0-45.0 [facility] Venous Blood pH 7.25 Low 7.32-7.43 [facility] Estimated GFR (CKD-EPI) 6.501 mL/Min [facility] Creatinine Clearance (Chem 9.29 [facility] Nucleated erythrocytes [Pres ence] in Blood by Automated countOrdered By: Debora Griffin on 01-14-2024 Nucleated RBC Auto Ql (Bld) 0.1 /100{WBC} 0-0.5 [facility] Partial Thromboplastin Timeo n 01-14-2024 aPTT Coag (Bld) [Time] 26.0 s Normal 25.1-36.5 [facility] Comment on above: Result Comment: A he matocrit value greater than 55% may lead to inaccurate results in coagulation testing. Patients having hematocrit values >55% require a special collection tube for coagulation studies. Please contact the laboratory at [phone] for redraw instructions. PERFORMED BY: [place] [address] PATHOLOGIST MACHINE PROGRAMMER DILLON ASCENCIO M.D. Performed By: #### P T, PTT, BMP, BNP, CK, CBC, HS TROP #### [facility] [address] [place] [address] Platelet mean volume [Entiti c volume] in Blood by Automated countOrdered By: Debora Griffin on 01-14-2024 Platelet mean volume (Bld) [Entitic vol] 9.8 fL Normal 6.3-10.7 [facility] Comment on above: Performed By: #### P T, PTT, BMP, BNP, CK, CBC, HS TROP #### [facility] [address] [place] [address] [place] Platelets [#/volume] in Bloo d by Automated countOrdered By: Debora Griffin on 01-14-2024 Platelets (Bld) [#/Vol] 150 10*3/uL Normal 150-450 [facility] Comment on above: Performed By: #### P T, PTT, BMP, BNP, CK, CBC, HS TROP #### [facility] [address] [place] [address] [place] Potassium [Moles/volume] in Serum or PlasmaOrdered By: Debora Griffin on 01-14-2024 Potassium [Moles/Vol] 5.5 mmol/L High 3.5-5.1 [facility] Comment on above: Performed By: #### P T, PTT, BMP, BNP, CK, CBC, HS TROP #### [address] Prothrombin time (PT)Ordered By: Debora Griffin on 01-14-2024 PT Coag (PPP) [Time] 10.9 s Normal 9.0-12.[address] [facility] Comment on above: A hematocrit value g reater than 55% may lead to inaccurate results in coagulation testing. Patients having hematocrit values >55% require a special collection tube for coagulation studies. Please contact the laboratory at [phone] for redraw instructions. Result Comment: A he matocrit value greater than 55% may lead to inaccurate results in coagulation testing. Patients having hematocrit values >55% require a special collection tube for coagulation studies. Please contact the laboratory at [phone] for redraw instructions. Performed By: #### P T, PTT, BMP, BNP, CK, CBC, HS TROP #### [address] Serum or plasma anion gap de terminationOrdered By: Debora Griffin on 01-14-2024 Anion gap [Moles/Vol] 16.2 mmol/L High 6.0-15.0 [facility] Comment on above: Performed By: #### P T, PTT, BMP, BNP, CK, CBC, HS TROP #### [address] Sodium [Moles/volume] in Ser um or PlasmaOrdered By: Debora Griffin on 01-14-2024 Sodium [Moles/Vol] 132 mmol/L Low 136-145 [facility] Comment on above: Performed By: #### P T, PTT, BMP, BNP, CK, CBC, HS TROP #### [address] Troponin I High Sensitivityo n 01-14-2024 Troponin I High Sensitivity 40.9 pg/mL High 0.0-15.0 [facility] Comment on above: Result Comment: PERF ORMED BY: [place] [address] PATHOLOGIST MACHINE PROGRAMMER DILLON ASCENCIO M.D. Performed By: #### H S TROP ####[facility] [address] Troponin I High Sensitivity 31.9 pg/mL High 0.0-15.0 [facility] Comment on above: Result Comment: PERF ORMED BY: [place] [address] PATHOLOGIST MACHINE PROGRAMMER DILLON ASCENCIO M.D. Performed By: #### P T, PTT, BMP, BNP, CK, CBC, HS TROP #### [facility] [address] [place] [address] Troponin I.cardiac [Mass/vol ume] in Serum or Plasma by Detection limit <= 0.01 ng/Ordered By: Debora Griffin on 01-14-2024 Troponin I.cardiac DL <= 0.01 ng/mL [Mass/Vol] 40.9 pg/mL High 0.0-15.0 [facility] Urea nitrogen [Mass/volume] in Serum or PlasmaOrdered By: Debora Griffin on 01-14-2024 Urea nitrogen [Mass/Vol] 72 mg/dL High 7-25 [facility] Comment on above: Performed By: #### P T, PTT, BMP, BNP, CK, CBC, HS TROP #### [facility] [address] [place] [address] Venous Blood GasOrdered By: Debora Griffin on 01-14-2024 CO2 [Moles/Vol] 22.0 mmol/L Low 24.0-29.0 [facility] Comment on above: Performed By: #### V BG ####Point of Care testing, HCO3 (Bld) [Moles/Vol] 20.6 mmol/L Low 23.0-29.0 [facility] Comment on above: Performed By: #### V BG ####Point of Care testing, Venous Blood Gason Respiratory Critical Normal [facility] Comment on above: Result Comment: Crit ical Value called on: 01/14/2024 at 09:34 PERFORMED BY: [place] [address] PATHOLOGIST MACHINE PROGRAMMER DILLON ASCENCIO M.D. Performed By: #### V BG ####Point of Care testing, VBG Base Excess -6.7 mmol/L Low -3.0-3.0 [facility] Comment on above: Performed By: #### V BG ####Point of Care testing, VBG Draw Site Venous Normal [facility] Comment on above: Performed By: #### V BG ####Point of Care testing, VBG Frac Inspired O2 Normal [facility] Comment on above: Performed By: #### V BG ####Point of Care testing, VBG O2 Content 6.1 mmol/L Low 6.6-9.7 [facility] Comment on above: Performed By: #### V BG ####Point of Care testing, VBG Oxygen Saturation 87.4 % Off scale high 73.0-76.0 [facility] Comment on above: Performed By: #### V BG ####Point of Care testing, VBG PCO2 48.4 mm[Hg] Normal 38.0-50.0 [facility] Comment on above: Performed By: #### V BG ####Point of Care testing, VBG PH Venous PH 7.25 Low 7.32-7.43 [facility] Comment on above: Performed By: #### V BG ####Point of Care testing, VBG PO2 59.6 mm[Hg] High 35.0-45.0 [facility] Comment on above: Performed By: #### V BG ####Point of Care testing, XR chest 1V portableon 01-13 XR chest 1V portable [facility] [place] [address] XRay Report Signed Patient: Janay Schilling MR#: [id number] : 1950 Acct:[id number] Age/Sex: 73 / F ADM Date: 01/14/24 Loc: ER Room: Type: PRE ER Attending Dr: Copies to: Debora Griffin MD Ordering Provider: Debora Griffin MD Date of Service: 01/14/24 XR/XR chest 1V portable: Chest Pain Plain film chest Single view HISTORY: Cyanosis. Unresponsive. COMPARISON: None FINDINGS: SUPPORT DEVICES: None POSTSURGICAL CHANGES: None HEART: Within normal limits PULMONARY SAM: Within normal limits MEDIASTINUM: Unremarkable LUNGS AND PLEURA: No acute lung process, pleural effusion or pneumothorax identified. Mild atelectasis. BONY STRUCTURES: Intact ADDITIONAL FINDINGS None XR/XR chest 1V portable IMPRESSION: No acute process. Impression dictated by: Eyal Stiles M.D.01/14/2024 9:10 AM Dictation Location: [place] [address] Transcribed By: [facility] 01/14/24909 Dictated By: Eyal Stiles DO 01/14/24907 Signed By: 01/14/24909 Normal [facility] CBC AND AUTO DIFFon 01-12-20 ABSOLUTE BASOPHIL 0.0 X10E9/L Normal 0.0-0.2 [facility] Comment on above: Performed By: #### C BCA, CMP, PINR, 84868-2, 25521-5, 09839-3 #### [facility] ([id number]) [address] [place] [address] 31125 ABSOLUTE NEUTROPHIL 4.3 X10E9/L Normal 1.5-6.6 [facility] Comment on above: Performed By: #### C BCA, CMP, PINR, 61750-3, 00339-9, 21091-0 #### [facility] ([id number]) [address] [place] [address] 91862 Basophils/100 WBC (Bld) 0.8 % Normal [facility] Comment on above: Performed By: #### C BCA, CMP, PINR, 11343-9, 90560-7, 87150-4 #### [facility] ([id number]) [address] [place] [address] 97912 Eosinophils (Bld) [#/Vol] 0.2 10*3/uL Normal 0.0-0.4 [facility] Comment on above: Performed By: #### C BCA, CMP, PINR, 04509-4, 64434-5, 47242-6 #### [facility] ([id number]) [address] [place] [address] 59867 Eosinophils/100 WBC (Bld) 3.7 % Normal [facility] Comment on above: Performed By: #### C BCA, CMP, PINR, , 93799-0, 82015-7 #### [facility] ([id number]) [address] [place] [address] 63788 Erythrocyte distribution width (RBC) [Ratio] 20.4 % High 11.5-15.0 [facility] Comment on above: Performed By: #### C BCA, CMP, PINR, 18973-1, 34545-7, 54462-7 #### [facility] ([id number]) [address] [place] [address] 02299 Hematocrit (Bld) [Volume fraction] 36.6 % Normal 35-47 [facility] Comment on above: Performed By: #### C BCA, CMP, PINR, 40021-0, 88846-4, 60120-7 #### [facility] ([id number]) [address] [place] [address] 16825 Hemoglobin (Bld) [Mass/Vol] 11.4 g/dL Low 11.7-15.5 [facility] Comment on above: Performed By: #### C BCA, CMP, PINR, 30875-9, 46127-3, 61950-3 #### [facility] ([id number]) [address] [place] [address] 77435 Lymphocytes (Bld) [#/Vol] 0.9 10*3/uL Low 1.0-3.5 [facility] Comment on above: Performed By: #### C BCA, CMP, PINR, 96573-6, 97910-1, 21765-4 #### [facility] ([id number]) [address] [place] [address] 16772 Lymphocytes/100 WBC (Bld) 15.4 % Normal [facility] Comment on above: Performed By: #### C BCA, CMP, PINR, 65779-0, 36519-0, 91142-1 #### [facility] ([id number]) [address] [place] [address] 44182 MCH (RBC) [Entitic mass] 31.3 pg Normal 27-34 [facility] Comment on above: Performed By: #### C BCA, CMP, PINR, 30762-8, 14352-6, 86092-0 #### [facility] ([id number]) [address] [place] [address] 75588 MCHC (RBC) [Mass/Vol] 31.3 g/dL Low 32-36 [facility] Comment on above: Performed By: #### C BCA, CMP, PINR, 66644-5, 63122-5, 56364-5 #### [facility] ([id number]) [address] [place] [address] 23948 MCV (RBC) [Entitic vol] 100 fL Normal 80-100 [facility] Comment on above: Performed By: #### C BCA, CMP, PINR, 91606-0, 36453-9, 38078-0 #### [facility] ([id number]) [address] [place] [address] 82580 Monocytes (Bld) [#/Vol] 0.4 10*3/uL Normal 0-0.9 [facility] Comment on above: Performed By: #### C BCA, CMP, PINR, 34997-7, 22948-3, 46688-8 #### [facility] ([id number]) [address] [place] [address] 33665 Monocytes/100 WBC (Bld) 6.1 % Normal [facility] Comment on above: Performed By: #### C BCA, CMP, PINR, 72792-8, 49511-9, 28517-3 #### [facility] ([id number]) [address] [place] [address] 92013 Neutrophils/100 WBC (Bld) 74.0 % Normal [facility] Comment on above: Performed By: #### C BCA, CMP, PINR, 83294-6, 16133-1, 83181-9 #### [facility] ([id number]) [address] [place] [address] 24199 Platelet mean volume (Bld) [Entitic vol] 9.8 fL Normal 7-12 [facility] Comment on above: Performed By: #### C BCA, CMP, PINR, 58355-0, 04566-6, 25833-6 #### [facility] ([id number]) [address] [place] [address] 71978 Platelets (Bld) [#/Vol] 133 10*3/uL Low 150-450 [facility] Comment on above: Performed By: #### C BCA, CMP, PINR, 40088-9, 41472-9, 43900-6 #### [facility] ([id number]) [address] [place] [address] 47356 RBC COUNT 3.66 X10E12/L Low 3.80-5.20 [facility] Comment on above: Performed By: #### C BCA, CMP, PINR, 68348-4, 79458-0, 62798-6 #### [facility] ([id number]) [address] [place] [address] 15648 WBC (Bld) [#/Vol] 5.8 10*3/uL Normal 4.0-11.0 [facility] Comment on above: Performed By: #### C BCA, CMP, PINR, 20257-5, 32340-5, 89273-2 #### [facility] ([id number]) [address] [place] [address] 80364 COMPREHENSIVE METABOLIC PANE Juventino 01-12-2024 Albumin [Mass/Vol] 3.2 g/dL Normal 3.2-5.3 [facility] Comment on above: Performed By: #### C BCA, CMP, PINR, 00954-3, 31841-8, 51585-5 #### [facility] ([id number]) [address] [place] [address] 08408 ALP [Catalytic activity/Vol] 88 U/L Normal 39-130 [facility] Comment on above: Performed By: #### C BCA, CMP, PINR, 08169-2, 19399-1, 77172-2 #### [facility] ([id number]) [address] [place] [address] 70592 ALT [Catalytic activity/Vol] 27 U/L Normal 0-31 [facility] Comment on above: Performed By: #### C BCA, CMP, PINR, 75109-8, 26323-2, 99825-7 #### [facility] ([id number]) [address] [place] [address] 29857 Anion gap [Moles/Vol] 9 mmol/L Normal 5-15 [facility] Comment on above: Performed By: #### C BCA, CMP, PINR, 03883-2, 96563-6, 60263-3 #### [facility] ([id number]) [address] [place] [address] 71435 AST [Catalytic activity/Vol] 16 U/L Normal 0-41 [facility] Comment on above: Performed By: #### C BCA, CMP, PINR, 10856-4, 12725-6, 01197-0 #### [facility] ([id number]) [address] [place] [address] 40475 Bilirubin [Mass/Vol] 0.4 mg/dL Normal 0.3-1.2 [facility] Comment on above: Performed By: #### C BCA, CMP, PINR, 87329-8, 85733-2, 15755-4 #### [facility] ([id number]) [address] [place] [address] 23759 Calcium [Mass/Vol] 8.7 mg/dL Normal 8.5-10.5 [facility] Comment on above: Performed By: #### C BCA, CMP, PINR, 07140-7, 92201-5, 22184-7 #### [facility] ([id number]) [address] [place] [address] 72976 Chloride [Moles/Vol] 99 mmol/L Normal 98-109 [facility] Comment on above: Performed By: #### C BCA, CMP, PINR, 09307-7, 07447-9, 21813-4 #### [facility] ([id number]) [address] [place] [address] 30128 CO2 [Moles/Vol] 24 mmol/L Normal 22-32 [facility] Comment on above: Performed By: #### C BCA, CMP, PINR, 53610-9, 69583-1, 51348-8 #### [facility] ([id number]) [address] [place] [address] 70861 Creatinine [Mass/Vol] 5.01 mg/dL High 0.40-1.00 [facility] Comment on above: Result Comment: METH OD TRACEABLE TO IDMS STANDARD Performed By: #### C BCA, CMP, PINR, 55834-1, 97835-6, 11677-1 #### [facility] ([id number]) [address] [place] [address] 89665 GFR/1.73 sq M.predicted among non-blacks MDRD (S/P/Bld) [Vol rate/Area] 9 mL/min/{1.73_m2} Low >59 [facility] Comment on above: Result Comment: Reported eGFR is based on the CKD-EPI 2020 equation that does not use a race coefficient. Performed By: #### C BCA, CMP, PINR, 43740-3, 85979-1, 69859-2 #### [facility] ([id number]) [address] [place] [address] 99651 Glucose [Mass/Vol] 258 mg/dL High 65-99 [facility] Comment on above: Performed By: #### C BCA, CMP, PINR, 41495-4, 03940-6, 95250-8 #### [facility] ([id number]) [address] [place] [address] 73082 Potassium [Moles/Vol] 4.4 mmol/L Normal 3.5-5.0 [facility] Comment on above: Performed By: #### C BCA, CMP, PINR, 94328-5, 45943-3, 51218-2 #### [facility] ([id number]) [address] [place] [address] 63409 Protein [Mass/Vol] 6.9 g/dL Normal 6.0-8.0 [facility] Comment on above: Performed By: #### C BCA, CMP, PINR, 61992-1, 78139-5, 35837-8 #### [facility] ([id number]) [address] [place] [address] 05372 Sodium [Moles/Vol] 132 mmol/L Low 134-146 [facility] Comment on above: Performed By: #### C BCA, CMP, PINR, 76909-2, 38962-7, 81437-8 #### [facility] ([id number]) [address] [place] [address] Urea nitrogen [Mass/Vol] 59 mg/dL High 5-27 [facility] Comment on above: Performed By: #### C BCA, CMP, PINR, 73719-3, 99687-0, 19589-3 #### [facility] ([id number]) [address] [place] [address] 95106 HGB AND HCTon 01-12-2024 Hematocrit (Bld) [Volume fraction] 35.5 % Normal 35-47 [facility] Comment on above: Performed By: #### P INR, 53336-3, CBCA, CMP #### [facility] ([id number]) [address] [place] [address] 29916 Hemoglobin (Bld) [Mass/Vol] 11.1 g/dL Low 11.7-15.5 [facility] Comment on above: Performed By: #### P INR, 79011-7, CBCA, CMP #### [facility] ([id number]) [address] [place] [address] 89630 MAGNESIUMon 01-12-2024 Magnesium [Mass/Vol] 2.0 mg/dL Normal 1.8-2.6 [facility] Comment on above: Performed By: #### P INR, 33566-2, CBCA, CMP #### [facility] ([id number]) [address] [place] [address] 11866 Natriuretic peptide B [Mass/ Vol]on 01-12-2024 Natriuretic peptide B (Bld) [Mass/Vol] 132 pg/mL High <100.0 [facility] Comment on above: Performed By: #### P INR, 16996-2, CBCA, CMP #### [facility] ([id number]) [address] [place] [address] 99076 PROTIME AND INRon 01-12-2024 INR Coag (PPP) [Relative time] 1.0 {INR} Normal 0.8-1.1 [facility] Comment on above: Performed By: #### C BCA, CMP, PINR, 23262-7, 02129-9, 41045-2 #### [facility] ([id number]) [address] [place] [address] 14030 PT Coag (PPP) [Time] 11.6 s Normal 9.8-13.2 [facility] Comment on above: Result Comment: NEW REFERENCE RANGE Performed By: #### C BCA, CMP, PINR, 20997-3, 42063-2, 40427-5 #### [facility] ([id number]) [address] [place] [address] 73795 Troponin I.cardiac High sens itivity method [Mass/Vol]on 01-12-2024 1 HOUR TROP I, HIGH SENSITIVITY 34 ng/L High <16 [facility] Comment on above: Result Comment: Elevations of hs-Troponin may be due to causes other than myocardial ischemia. Recommend serial hs-Troponin testing be performed. For the initial evaluation and management of chest pain patients, refer to the algorithms linked below. Emergency Patient: [email or web address] Inpatient: [email or web address] Performed By: #### P INR, 05827-0, CBCA, CMP #### [facility] ([id number]) [address] [place] [address] 57421 TROPONIN I, HIGH SENSITIVITY 36 ng/L High <16 [facility] Comment on above: Result Comment: Elevations of hs-Troponin may be due to causes other than myocardial ischemia. Recommend serial hs-Troponin testing be performed. For the initial evaluation and management of chest pain patients, refer to the algorithms linked below. Emergency Patient: [email or web address] Inpatient: [email or web address] Performed By: #### P INR, 19234-9, CBCA, CMP #### [facility] ([id number]) [address] [place] [address], [place] [address] XR CHEST 1 VWon 01-12-2024 XR CHEST 1 VW XR CHEST 1 VW XR CHEST 1 VW IMPRESSION: Clinical Information: Chest pain. Comparison: 03/01/22. * Mild vascular congestion. Low lung volumes. Eventration and elevation right hemidiaphragm. Cardiomegaly. Vascular calcifications. Finalized by Tarik Tiwari MD on 01/12/2024 10:52 AM Normal [facility] CT ABDOMEN AND PELVIS WO CON Ton 12-06-2023 CT ABDOMEN AND PELVIS WO CONT CT ABDOMEN AND PELVIS WO CONT CLINICAL INFORMATION: Abdominal pain, acute, nonlocalized. TECHNIQUE: CT Abdomen and Pelvis without intravenous contrast. All CT scans at this facility use dose modulation, iterative reconstruction, and/or weight based dosing when appropriate to reduce radiation dose to as low as reasonably achievable. COMPARISON: No relevant prior studies available. FINDINGS: There is strandy density in the dependent lower lungs compatible scarring or atelectasis. Noncontrast evaluation of abdominal and retroperitoneal organs is not optimal with no gross hepatic, splenic, pancreatic, or biliary abnormality. The patient is postcholecystectomy. Lobular, benign-appearing adrenal lesions are present bilaterally. There is no hydronephrosis. Renal cysts are present. There is some perinephric stranding with no perinephric fluid. No ureteral dilation or urinary bladder irregularity is present. Assessment for renal calculi is difficult due to vascular calcifications. There is no definite nephrolithiasis pelvic organs are not optimally evaluated by CT. A calcified fibroma is present in the uterus on the right. There is a moderate amount of stool within colon distally to the rectum. No free intracranial gas or fluid is evident. There is no focal bowel irregularity within the limitations of this study. Atherosclerotic calcification is present within the aorta and iliac vessels with mild iliac tortuosity. There is a calcified granuloma in the right inguinal region. Vertebral shapes are grossly normal. Other osseous structures appear within normal limits. IMPRESSION: 1. No definite cause of acute abdominal pain identified on CT evaluation. 2. Moderate amount stool within colon. 3. Atherosclerotic changes throughout arterial vessels, benign-appearing adrenal lesions and other chronic appearing findings as described above. Finalized by Dharmesh Almaraz MD on 12/06/2023 8:58 AM Normal [facility] HGB AND HCTon 09-13-2023 Hematocrit (Bld) [Volume fraction] 22.2 % Low 35-47 [facility] Comment on above: Performed By: #### H H #### [facility] ([id number]) [address] [place] [address] 16165 Hemoglobin (Bld) [Mass/Vol] 7.3 g/dL Low 11.7-15.5 [facility] Comment on above: Performed By: #### H H #### [facility] ([id number]) [address] [place] [address] 97568 ABO Rh Repeaton 09-03-2023 ABO A [facility] Rh Nom (Bld) Positive [facility] ABO/Rhon 09-03-2023 ABO A [facility] Rh Nom (Bld) Positive [facility] CBC AND AUTO DIFFon 09-03-19 24 ABSOLUTE BASOPHIL 0.1 X10E9/L Normal 0.0-0.2 [facility] Comment on above: Performed By: #### C BCA, CMP, 64065-8 ####[facility] ([id number])[address] [place] [address] ABSOLUTE NEUTROPHIL 1.9 X10E9/L Normal 1.5-6.6 [facility] Comment on above: Performed By: #### C BCA, CMP, 69899-5 ####[facility] ([id number])[address] [place] [address] Basophils/100 WBC (Bld) 1.6 % Normal [facility] Comment on above: Performed By: #### C ANGELLA [facility], ####[facility] ([id number])[address] [place] [address] Eosinophils (Bld) [#/Vol] 0.3 10*3/uL Normal 0.0-0.4 [facility] Comment on above: Performed By: #### Elmer PERALES [facility], ####[facility] ([id number])[address] [place] [address] Eosinophils/100 WBC (Bld) 6.7 % Normal [facility] Comment on above: Performed By: #### Elmer PERALES [facility], ####[facility] ([id number])[address] [place] [address] Erythrocyte distribution width (RBC) [Ratio] 19.2 % High 11.5-15.0 [facility] Comment on above: Performed By: #### Elmer PERALES [facility], ####[facility] ([id number])[address] [place] [address] Hematocrit (Bld) [Volume fraction] 22.5 % Low 35-47 [facility] Comment on above: Performed By: #### Elmer PERALES [facility], ####[facility] ([id number])[address] [place] [address] Hemoglobin (Bld) [Mass/Vol] 7.3 g/dL Low 11.7-15.5 [facility] Comment on above: Performed By: #### C ANGELLA [facility], ####[facility] ([id number])[address] [place] [address] Lymphocytes (Bld) [#/Vol] 1.2 10*3/uL Normal 1.0-3.5 [facility] Comment on above: Performed By: #### Elmer PERALES, [facility], ####[facility] ([id number])[address] [place] [address] Lymphocytes/100 WBC (Bld) 30.9 % Normal [facility] Comment on above: Performed By: #### Elmer PERALES [facility], ####[facility] ([id number])[address] [place] [address] MCH (RBC) [Entitic mass] 33.4 pg Normal 27-34 [facility] Comment on above: Performed By: #### Elmer PERALES [facility], ####[facility] ([id number])[address] [place] [address] MCHC (RBC) [Mass/Vol] 32.7 g/dL Normal 32-36 [facility] Comment on above: Performed By: #### Elmer PERALES [facility], ####[facility] ([id number])[address] [place] [address] MCV (RBC) [Entitic vol] 102 fL High 80-100 [facility] Comment on above: Performed By: #### Elmer PERALES [facility], ####[facility] ([id number])[address] [place] [address] Monocytes (Bld) [#/Vol] 0.4 10*3/uL Normal 0-0.9 [facility] Comment on above: Performed By: #### Elmer PERALES [facility], ####[facility] ([id number])[address] [place] [address] Monocytes/100 WBC (Bld) 11.1 % Normal [facility] Comment on above: Performed By: #### Elmer PERALES [facility], ####[facility] ([id number])[address] [place] [address] Neutrophils/100 WBC (Bld) 49.7 % Normal [facility] Comment on above: Performed By: #### Elmer PERALES [facility], ####[facility] ([id number])[address] [place] [address] Platelet mean volume (Bld) [Entitic vol] 8.1 fL Normal 7-12 [facility] Comment on above: Performed By: #### Elmer PERALES [facility], 19057-9 ####[facility] ([id number])[address] [place] [address] Platelets (Bld) [#/Vol] 127 10*3/uL Low 150-450 [facility] Comment on above: Performed By: #### Elmer PERALES [facility], 42261-9 ####[facility] ([id number])[address] [place] [address] RBC COUNT 2.20 X10E12/L Low 3.80-5.20 [facility] Comment on above: Performed By: #### Elmer PERALES [facility], ####[facility] ([id number])[address] [place] [address] WBC (Bld) [#/Vol] 3.8 10*3/uL Low 4.0-11.0 [facility] Comment on above: Performed By: #### Elmer PERALES [facility], ####[facility] ([id number])[address] [place] [address] CBC auto differentialon 050 Basophils (Bld) [#/Vol] 0.1 10*3/uL [facility] Basophils/100 WBC (Bld) 1.6 % [facility] Eosinophils (Bld) [#/Vol] 0.3 10*3/uL [facility] Eosinophils/100 WBC (Bld) 6.7 % [facility] Erythrocyte distribution width (RBC) [Ratio] 19.2 % High 11.5 - 15.0 % [facility] Hematocrit (Bld) [Volume fraction] 22.5 % Low 35 - 47 % [facility] Hemoglobin (Bld) [Mass/Vol] 7.3 g/dL Low 11.7 - 15.5 g/dL [facility] Interpretation and review of laboratory results Abnormal [facility] Lymphocytes (Bld) [#/Vol] 1.2 10*3/uL [facility] Lymphocytes/100 WBC (Bld) 30.9 % [facility] MCH (RBC) [Entitic mass] 33.4 pg 27 - 34 pg [facility] MCHC (RBC) [Mass/Vol] 32.7 g/dL 32 - 3 6 g/dL [facility] MCV (RBC) [Entitic vol] 102 fL High 80 - 100 fL [facility] Monocytes (Bld) [#/Vol] 0.4 10*3/uL [facility] Monocytes/100 WBC (Bld) 11.1 % [facility] Neutrophils (Bld) [#/Vol] 1.9 10*3/uL [facility] Neutrophils/100 WBC (Bld) 49.7 % [facility] Platelet mean volume (Bld) [Entitic vol] 8.1 fL 7 - 12 fL [facility] Platelets (Bld) [#/Vol] 127 10*3/uL Low [facility] RBC (Bld) [#/Vol] 2.20 10*6/uL Low [facility] WBC corrected for nucl RBC Auto (Bld) [#/Vol] 3.8 Low [facility] COMPREHENSIVE METABOLIC PANE [place] 09-03-2023 Albumin [Mass/Vol] 2.7 g/dL Low 3.2-5.3 [facility] Comment on above: Performed By: #### C BCA, CMP, 02327-4 ####[facility] ([id number])2801 [place] [address] ALP [Catalytic activity/Vol] 67 U/L Normal 39-130 [facility] Comment on above: Performed By: #### C BCA, CMP, 26914-5 ####[facility] ([id number])2801 [place] [address] ALT [Catalytic activity/Vol] 17 U/L Normal 0-31 [facility] Comment on above: Performed By: #### C BCA, CMP, 38095-5 ####[facility] ([id number])2801 [place] [address] Anion gap [Moles/Vol] 7 mmol/L Normal 5-15 [facility] Comment on above: Performed By: #### C BCA, CMP, ####[facility] ([id number])2801 [facility] [place] [address] AST [Catalytic activity/Vol] 14 U/L Normal 0-41 [facility] - [place] Comment on above: Performed By: #### C BCA, CMP, ####[facility] ([id number])[address] [facility] [place] [address] Bilirubin [Mass/Vol] 0.3 mg/dL Normal 0.3-1.2 [facility] Comment on above: Performed By: #### C BCA, CMP, ####[facility] ([id number])[address] [facility] [place] [address] Calcium [Mass/Vol] 8.3 mg/dL Low 8.5-10.5 [facility] Comment on above: Performed By: #### C BCA, CMP, ####[facility] ([id number])[address] [facility] [place] [address] Chloride [Moles/Vol] 102 mmol/L Normal 98-109 [facility] Comment on above: Performed By: #### C BCA, CMP, ####[facility] ([id number])[address] [facility] [place] [address] CO2 [Moles/Vol] 25 mmol/L Normal 22-32 [facility] Comment on above: Performed By: #### C BCA, CMP, ####[facility] ([id number])[address] [facility] [place] [address] Creatinine [Mass/Vol] 4.15 mg/dL High 0.40-1.00 [facility] Comment on above: Result Comment: METH OD TRACEABLE TO IDMS STANDARD Performed By: #### C BCA, CMP, ####[facility] ([id number])[address] [facility] [place] [address] GFR/1.73 sq M.predicted among non-blacks MDRD (S/P/Bld) [Vol rate/Area] 11 mL/min/{1.73_m2} Low >59 [facility] Comment on above: Result Comment: Reported eGFR is based on the CKD-EPI 2020 equation that does not use a race coefficient. Performed By: #### C TRI PERALES, ####[facility] ([id number])[address] [place] [address] Glucose [Mass/Vol] 136 mg/dL High 65-99 [facility] Comment on above: Performed By: #### C ANGELLA [facility], ####[facility] ([id number])[address] [place] [address] Potassium [Moles/Vol] 4.5 mmol/L Normal 3.5-5.0 [facility] Comment on above: Performed By: #### C ANGELLA [facility], ####[facility] ([id number])[address] [place] [address] Protein [Mass/Vol] 5.7 g/dL Low 6.0-8.0 [facility] Comment on above: Performed By: #### C ANGELLA [facility], ####[facility] ([id number])[address] [place] [address] Sodium [Moles/Vol] 134 mmol/L Normal 134-146 [facility] Comment on above: Performed By: #### C ANGELLA [facility], ####[facility] ([id number])[address] [place] [address] Urea nitrogen [Mass/Vol] 48 mg/dL High 5-27 [facility] Comment on above: Performed By: #### C ANGELLA [facility], ####[facility] ([id number])[address] [place] [address] Comprehensive metabolic pane juventino 09-03-2023 Albumin [Mass/Vol] 2.7 g/dL Low 3.2 - 5.3 g/dL [facility] ALP [Catalytic activity/Vol] 67 U/L 39 - 130 U/L [facility] ALT No additional P-5'-P [Catalytic activity/Vol] 17 U/L 0 - 31 U/L [facility] Anion gap [Moles/Vol] 7 mmol/L 5 - 15 mmol/L [facility] AST [Catalytic activity/Vol] 14 U/L 0 - 41 U/L [facility] Bilirubin [Mass/Vol] 0.3 mg/dL 0.3 - 1 .2 mg/dL [facility] Calcium [Mass/Vol] 8.3 mg/dL Low 8.5 - 10. 5 mg/dL [facility] Chloride [Moles/Vol] 102 mmol/L 98 - 10 9 mmol/L [facility] CO2 [Moles/Vol] 25 mmol/L 22 - 32 mmol/L [facility] Creatinine [Mass/Vol] 4.15 mg/dL High 0.40 - 1.00 mg/dL [facility] Comment on above: [facility] eGFR (CKD-EPI)non-race dependent 11 Low - PINF [facility] Comment on above: Reported eGFR is based on the CKD-EPI 2020 equation that does not use a race coefficient. Glucose [Mass/Vol] 136 mg/dL High 65 - 99 mg/dL [facility] Interpretation and review of laboratory results Abnormal [facility] Potassium [Moles/Vol] 4.5 mmol/L 3.5 - 5.0 mmol/L [facility] Protein [Mass/Vol] 5.7 g/dL Low 6.0 - 8.0 g/dL [facility] Sodium [Moles/Vol] 134 mmol/L 134 - 146 mmol/L [facility] Urea nitrogen [Mass/Vol] 48 mg/dL High 5 - 27 mg/dL [facility] Crossmatch RBC:Number of Uni ts: 109-03-2023 BB Type Barcode 6200 [facility] Blood component type [id number] [facility] Crossmatch Compatible [facility] Expiration Date [id number] [facility] Status of unit ISSUED [facility] Unit ABO A [facility] Unit number [id number] [facility] Unit RH Positive [facility] Glucose Glucometer (BldC) [M ass/Vol]on 09-03-2023 Glucose [Mass/Vol] 117 mg/dL High 65 - 99 mg/dL [facility] Interpretation and review of laboratory results Abnormal [facility] Glucose [Mass/Vol] 117 mg/dL High 65-99 [facility] Glucose [Mass/Vol] 122 mg/dL High 65 - 99 mg/dL [facility] Interpretation and review of laboratory results Abnormal [facility] Glucose [Mass/Vol] 122 mg/dL High 65-99 [facility] HGB AND HCTon 09-03-2023 Hematocrit (Bld) [Volume fraction] 25.7 % Low 35-47 [facility] Comment on above: Performed By: #### 2 823-3 #### [facility] ([id number]) [address] [place] [address] Hemoglobin (Bld) [Mass/Vol] 8.4 g/dL Low 11.7-15.5 [facility] Comment on above: Performed By: #### 2 823-3 #### [facility] ([id number]) [address] [place] [address] [place] [address] Hematocrit (Bld) [Volume fraction] 22.6 % Low 35-47 [facility] Comment on above: Performed By: #### 2 823-3 #### [facility] ([id number]) [address] [place] [address] Hemoglobin (Bld) [Mass/Vol] 7.5 g/dL Low 11.7-15.5 [facility] Comment on above: Performed By: #### 2 823-3 #### [facility] ([id number]) [address] [address] Hemodialysis / Ultrafiltatio n - TABLOon 09-03-2023 Jennifer Trevino RN 09/03/2023 1:23 PM hr HD tx completed. 210 Pt tolerated tx.:Well Tx complications:: None Medications given:: None Net fluid removal: L 2 per machine 2.8 per scale Pre tx weight: k.3 Post tx weight: k.5 Post BP::152/68 Access: : PEDROF Report given to Primary RN: Lavonne [facility] Hemoglobin and hematocrit, b loodon 09-03-2023 Hematocrit (Bld) [Volume fraction] 25.7 % Low 35 - 47 % [facility] Hemoglobin (Bld) [Mass/Vol] 8.4 g/dL Low 11.7 - 15.5 g/dL [facility] Interpretation and review of laboratory results Abnormal [facility] Hematocrit (Bld) [Volume fraction] 22.6 % Low 35 - 47 % [facility] Hemoglobin (Bld) [Mass/Vol] 7.5 g/dL Low 11.7 - 15.5 g/dL [facility] Interpretation and review of laboratory results Abnormal [facility] MAGNESIUMon 09-03-2023 Magnesium [Mass/Vol] 2.1 mg/dL Normal 1.8-2.6 [facility] Comment on above: Performed By: #### C TRI PERALES, 80845-7 ####[facility] ([id number])[address] [place] [id number] Magnesiumon 09-03-2023 Magnesium [Mass/Vol] 2.1 mg/dL 1.8 - 2 .6 mg/dL [facility] aborhon 09-03-2023 [facility] No Panel Informationon 09-02 [facility] CBC AND AUTO DIFFon 09-02-19 24 ABSOLUTE BASOPHIL 0.1 X10E9/L Normal 0.0-0.2 [facility] Comment on above: Performed By: #### Elmer PERALES CMP, 89759-2 #### [facility] ([id number]) [address] [place] [address] ABSOLUTE NEUTROPHIL 2.3 X10E9/L Normal 1.5-6.6 [facility] Comment on above: Performed By: #### Elmer PERALES CMP, 66471-1 #### [facility] ([id number]) [address] [place] [address] Basophils/100 WBC (Bld) 1.2 % Normal [facility] Comment on above: Performed By: #### C ANGELLA [facility], #### [facility] ([id number]) [address] [facility] [place] [address] Eosinophils (Bld) [#/Vol] 0.3 10*3/uL Normal 0.0-0.4 [facility] Comment on above: Performed By: #### C ANGELLA [facility], #### [facility] ([id number]) [address] [facility] [place] [address] Eosinophils/100 WBC (Bld) 6.0 % Normal [facility] Comment on above: Performed By: #### C TRI PERALES, #### [facility] ([id number]) [address] [place] [address] Erythrocyte distribution width (RBC) [Ratio] 18.5 % High 11.5-15.0 [facility] Comment on above: Performed By: #### Elmer PERALES [facility], #### [facility] ([id number]) [address] [place] [address] Hematocrit (Bld) [Volume fraction] 21.6 % Low 35-47 [facility] Comment on above: Performed By: #### Elmer PERALES CMP, #### [facility] ([id number]) [address] [place] [address] Hemoglobin (Bld) [Mass/Vol] 7.0 g/dL Low 11.7-15.5 [facility] Comment on above: Performed By: #### Elmer PERALES [facility], #### [facility] ([id number]) [address] [place] [address] Lymphocytes (Bld) [#/Vol] 1.2 10*3/uL Normal 1.0-3.5 [facility] Comment on above: Performed By: #### Elmer PERALES CMP, #### [facility] ([id number]) [address] [place] [address] Lymphocytes/100 WBC (Bld) 28.1 % Normal [facility] Comment on above: Performed By: #### C ANGELLA [facility], #### [facility] ([id number]) [address] [place] [address] MCH (RBC) [Entitic mass] 34.3 pg High 27-34 [facility] Comment on above: Performed By: #### C ANGELLA [facility], #### [facility] ([id number]) [address] [facility] [place] [address] MCHC (RBC) [Mass/Vol] 32.2 g/dL Normal 32-36 [facility] Comment on above: Performed By: #### Elmer PERALES CMP, #### [facility] ([id number]) [address] [place] [address] MCV (RBC) [Entitic vol] 106 fL High 80-100 [facility] Comment on above: Performed By: #### Elmer PERALES [facility], #### [facility] ([id number]) [address] [address] Monocytes (Bld) [#/Vol] 0.5 10*3/uL Normal 0-0.9 [facility] Comment on above: Performed By: #### Elmer PERALES CMP, #### [facility] ([id number]) [address] [place] [address] Monocytes/100 WBC (Bld) 10.7 % Normal [facility] Comment on above: Performed By: #### Elmer PERALES CMP, #### [facility] ([id number]) [address] [place] [address] Neutrophils/100 WBC (Bld) 54.0 % Normal [facility] Comment on above: Performed By: #### Elmer PERALES CMP, #### [facility] ([id number]) [address] [place] [address] Platelet mean volume (Bld) [Entitic vol] 8.3 fL Normal 7-12 [facility] Comment on above: Performed By: #### Elmer PERALES [facility], 95936-8 #### [facility] ([id number]) [address] [facility] [place] [address] Platelets (Bld) [#/Vol] 125 10*3/uL Low 150-450 [facility] Comment on above: Performed By: #### Elmer PERALES CMP, 29125-4 #### [facility] ([id number]) [address] [facility] [place] [address] RBC COUNT 2.03 X10E12/L Low 3.80-5.20 [facility] Comment on above: Performed By: #### Elmer PERALES CMP, #### [facility] ([id number]) [address] [facility] [place] [address] WBC (Bld) [#/Vol] 4.3 10*3/uL Normal 4.0-11.0 [facility] Comment on above: Performed By: #### Elmer PERALES CMP, #### [facility] ([id number]) [address] [facility] [place] [address] CBC auto differentialon 05-0 -2023 Basophils (Bld) [#/Vol] 0.1 10*3/uL [facility] Basophils/100 WBC (Bld) 1.2 % [facility] Eosinophils (Bld) [#/Vol] 0.3 10*3/uL [facility] Eosinophils/100 WBC (Bld) 6.0 % [facility] Erythrocyte distribution width (RBC) [Ratio] 18.5 % High 11.5 - 15.0 % [facility] Hematocrit (Bld) [Volume fraction] 21.6 % Low 35 - 47 % [facility] Hemoglobin (Bld) [Mass/Vol] 7.0 g/dL Low 11.7 - 15.5 g/dL [facility] Interpretation and review of laboratory results Abnormal [facility] Lymphocytes (Bld) [#/Vol] 1.2 10*3/uL [facility] Lymphocytes/100 WBC (Bld) 28.1 % [facility] MCH (RBC) [Entitic mass] 34.3 pg High 27 - 34 pg [facility] MCHC (RBC) [Mass/Vol] 32.2 g/dL 32 - 3 6 g/dL [facility] MCV (RBC) [Entitic vol] 106 fL High 80 - 100 fL [facility] Monocytes (Bld) [#/Vol] 0.5 10*3/uL [facility] Monocytes/100 WBC (Bld) 10.7 % [facility] Neutrophils (Bld) [#/Vol] 2.3 10*3/uL [facility] Neutrophils/100 WBC (Bld) 54.0 % [facility] Platelet mean volume (Bld) [Entitic vol] 8.3 fL 7 - 12 fL [facility] Platelets (Bld) [#/Vol] 125 10*3/uL Low [facility] RBC (Bld) [#/Vol] 2.03 10*6/uL Low [facility] WBC corrected for nucl RBC Auto (Bld) [#/Vol] 4.3 [facility] COMPREHENSIVE METABOLIC PANE Juventino 09-02-2023 Albumin [Mass/Vol] 2.8 g/dL Low 3.2-5.3 [facility] Comment on above: Performed By: #### C BCA, CMP, 04340-0 #### [facility] ([id number]) [address] [place] [address] ALP [Catalytic activity/Vol] 69 U/L Normal 39-130 [facility] Comment on above: Performed By: #### C BCA, CMP, 71801-1 #### [facility] ([id number]) [address] [place] [address] ALT [Catalytic activity/Vol] 18 U/L Normal 0-31 [facility] Comment on above: Performed By: #### C BCA, CMP, #### [facility] ([id number]) [address] [place] [address] Anion gap [Moles/Vol] 9 mmol/L Normal 5-15 [facility] Comment on above: Performed By: #### C BCA CMP, #### [facility] ([id number]) [address] [place] [address] AST [Catalytic activity/Vol] 13 U/L Normal 0-41 [facility] Comment on above: Performed By: #### C ANGELLA CMP, #### [facility] ([id number]) [address] [place] [address] Bilirubin [Mass/Vol] 0.5 mg/dL Normal 0.3-1.2 [facility] Comment on above: Performed By: #### C TRI PERALES, #### [facility] ([id number]) [address] [place] [address] Calcium [Mass/Vol] 8.6 mg/dL Normal 8.5-10.5 [facility] Comment on above: Performed By: #### C TRI PERALES, #### [facility] ([id number]) [address] [place] [address] Chloride [Moles/Vol] 103 mmol/L Normal 98-109 [facility] Comment on above: Performed By: #### C BCA CMP, #### [facility] ([id number]) [address] [place] [address] CO2 [Moles/Vol] 23 mmol/L Normal 22-32 [facility] Comment on above: Performed By: #### C BCA CMP, #### [facility] ([id number]) [address] [place] [address] Creatinine [Mass/Vol] 6.31 mg/dL High 0.40-1.00 [facility] Comment on above: Result Comment: METH OD TRACEABLE TO IDMS STANDARD Performed By: #### C BCA CMP, #### [facility] ([id number]) [address] [place] [address] GFR/1.73 sq M.predicted among non-blacks MDRD (S/P/Bld) [Vol rate/Area] 7 mL/min/{1.73_m2} Low >59 [facility] Comment on above: Result Comment: Reported eGFR is based on the CKD-EPI 2020 equation that does not use a race coefficient. Performed By: #### C TRI PERALES, #### [facility] ([id number]) [address] [place] [address] Glucose [Mass/Vol] 126 mg/dL High 65-99 [facility] Comment on above: Performed By: #### C TRI PERALES, #### [facility] ([id number]) [address] [place] [address] Potassium [Moles/Vol] 5.4 mmol/L High 3.5-5.0 [facility] Comment on above: Performed By: #### Elmer PERALES [facility], #### [facility] ([id number]) [address] [place] [address] Protein [Mass/Vol] 5.9 g/dL Low 6.0-8.0 [facility] Comment on above: Performed By: #### C ANGELLA [facility], #### [facility] ([id number]) [address] [place] [address] Sodium [Moles/Vol] 135 mmol/L Normal 134-146 [facility] Comment on above: Performed By: #### Elmer PERALES [facility], #### [facility] ([id number]) [address] [place] [address] Urea nitrogen [Mass/Vol] 77 mg/dL High 5-27 [facility] Comment on above: Performed By: #### C TRI PERALES, #### [facility] ([id number]) [address] [place] [address] Comprehensive metabolic pane juventino 09-02-2023 Albumin [Mass/Vol] 2.8 g/dL Low 3.2 - 5.3 g/dL [facility] ALP [Catalytic activity/Vol] 69 U/L 39 - 130 U/L [facility] ALT No additional P-5'-P [Catalytic activity/Vol] 18 U/L 0 - 31 U/L [facility] Anion gap [Moles/Vol] 9 mmol/L 5 - 15 mmol/L [facility] AST [Catalytic activity/Vol] 13 U/L 0 - 41 U/L [facility] Bilirubin [Mass/Vol] 0.5 mg/dL 0.3 - 1 .2 mg/dL [facility] Calcium [Mass/Vol] 8.6 mg/dL 8.5 - 10. 5 mg/dL [facility] Chloride [Moles/Vol] 103 mmol/L 98 - 10 9 mmol/L [facility] CO2 [Moles/Vol] 23 mmol/L 22 - 32 mmol/L [facility] Creatinine [Mass/Vol] 6.31 mg/dL High 0.40 - 1.00 mg/dL [facility] Comment on above: [facility] eGFR (CKD-EPI)non-race dependent 7 Low - PINF [facility] Comment on above: Reported eGFR is based on the CKD-EPI 2020 equation that does not use a race coefficient. Glucose [Mass/Vol] 126 mg/dL High 65 - 99 mg/dL [facility] Interpretation and review of laboratory results Abnormal [facility] Potassium [Moles/Vol] 5.4 mmol/L High 3.5 - 5.0 mmol/L [facility] Protein [Mass/Vol] 5.9 g/dL Low 6.0 - 8.0 g/dL [facility] Sodium [Moles/Vol] 135 mmol/L 134 - 146 mmol/L [facility] Urea nitrogen [Mass/Vol] 77 mg/dL High 5 - 27 mg/dL [facility] Glucose Glucometer (BldC) [M ass/Vol]on 09-02-2023 Glucose [Mass/Vol] 111 mg/dL High 65 - 99 mg/dL [facility] Interpretation and review of laboratory results Abnormal [facility] Glucose [Mass/Vol] 111 mg/dL High 65-99 [facility] Glucose [Mass/Vol] 122 mg/dL High 65 - 99 mg/dL [facility] Interpretation and review of laboratory results Abnormal [facility] Glucose [Mass/Vol] 122 mg/dL High 65-99 [facility] Glucose [Mass/Vol] 124 mg/dL High 65 - 99 mg/dL [facility] Interpretation and review of laboratory results Abnormal [facility] Glucose [Mass/Vol] 111 mg/dL High 65 - 99 mg/dL [facility] Interpretation and review of laboratory results Abnormal [facility] Glucose [Mass/Vol] 111 mg/dL High 65-99 [facility] Glucose [Mass/Vol] 137 mg/dL High 65 - 99 mg/dL [facility] Interpretation and review of laboratory results Abnormal [facility] Glucose [Mass/Vol] 137 mg/dL High 65-99 [facility] HBV surface Ab IA Qnon 09-01 Anti HBs quant. <8.00 Normal [facility] Comment on above: Result Comment: Vacc inated: >=12mIU/mL, Positive (Immune) Unvaccinated: <8mIU/mL, Negative (Not Immune) 8-11.99 mIU/mL: Indeterminate, (Considered Not Immune) Performed By: #### 5 193-8, 5196-1 ####[facility] ([id number])[address], [address] [place] [address] HBV surface Ag IA Qlon 09-01 HEPATITIS B SURF AG Negative Normal NEG [facility] Comment on above: Performed By: #### 5 193-8, 5196-1 ####[facility] ([id number])[address] [address] HGB AND HCTon 09-02-2023 Hematocrit (Bld) [Volume fraction] 21.2 % Low 35-47 [facility] Comment on above: Performed By: #### H H ####[facility] ([id number])[address] [place] [address] Hemoglobin (Bld) [Mass/Vol] 6.9 g/dL Critically low 11.7-15.5 [facility] Comment on above: Performed By: #### H H ####[facility] ([id number])[address] [place] [address] Hematocrit (Bld) [Volume fraction] 23.9 % Low 35-47 [facility] Comment on above: Performed By: #### H H ####[facility] ([id number])[address] [place] [address] Hemoglobin (Bld) [Mass/Vol] 7.7 g/dL Low 11.7-15.5 [facility] Comment on above: Performed By: #### H H ####[facility] ([id number])[address] [place] [address] Hematocrit (Bld) [Volume fraction] 21.4 % Low 35-47 [facility] Comment on above: Performed By: #### H H #### [facility] ([id number]) [address] [facility] [place] [address] Hemoglobin (Bld) [Mass/Vol] 7.0 g/dL Low 11.7-15.5 [facility] Comment on above: Performed By: #### H H #### [facility] ([id number]) [address] [facility] [place] [address] Hemodialysis / Ultrafiltatio n - TABLOon 09-02-2023 Ann Bonilla RN 09/02/2023 12:16 PM Tolerated 3.5 hours of HD poor. Required 400ml saline, miododrine and decrease in UFR for hypotension. Nephrology INSTALLATION AND SERVICE TECHNICIAN notified of above and that I was unable to reach fluid removal goal of 3L AVF functioned well at [id number] Dry wt 98.6kg Post wt 105.7kg Fluid removal 1.9L Post bp 135/56 [facility] Hemoglobin and hematocrit, b loodon 09-02-2023 Hematocrit (Bld) [Volume fraction] 21.2 % Low 35 - 47 % [facility] Hemoglobin (Bld) [Mass/Vol] 6.9 g/dL Critically low 11.7 - 15.5 g/dL [facility] Interpretation and review of laboratory results Abnormal [facility] Hematocrit (Bld) [Volume fraction] 23.9 % Low 35 - 47 % [facility] Hemoglobin (Bld) [Mass/Vol] 7.7 g/dL Low 11.7 - 15.5 g/dL [facility] Interpretation and review of laboratory results Abnormal [facility] Hematocrit (Bld) [Volume fraction] 21.4 % Low 35 - 47 % [facility] Hemoglobin (Bld) [Mass/Vol] 7.0 g/dL Low 11.7 - 15.5 g/dL [facility] Interpretation and review of laboratory results Abnormal [facility] Hepatitis B Surface Antibody Quantitationon 09-02-2023 HBV surface Ab IA Qn mIU/mL [facility] Comment on above: Vaccinated: >=12mIU/ mL, Positive (Immune) Unvaccinated: <8mIU/mL, Negative (Not Immune) 8-11.99 mIU/mL: Indeterminate, (Considered Not Immune) Hepatitis B surface antigeno n 09-02-2023 HBV surface Ag IA Ql Negative Negativ e^N egative [facility] MAGNESIUMon 09-02-2023 Magnesium [Mass/Vol] 2.2 mg/dL Normal 1.8-2.6 [facility] Comment on above: Performed By: #### C ANGELLA, [facility], 75034-4 #### [facility] ([id number]) [address] [facility] [place] [address] Magnesiumon 09-02-2023 Magnesium [Mass/Vol] 2.2 mg/dL 1.8 - 2 .6 mg/dL [facility] No Panel Informationon 09-01 [facility] Type and screen(includes ind irect vamsi)on 09-02-2023 ABO A [facility] Rh Nom (Bld) Positive [facility] CBC AND AUTO DIFFon 09-01-19 ABSOLUTE BASOPHIL 0.0 X10E9/L Normal 0.0-0.2 [facility] Comment on above: Performed By: #### C BCA #### [facility] ([id number]) [address] [place] [address] Performed By: #### P INR, 95692-9, CBCA, CMP #### [facility] ([id number]) [address] [place] [address] ABSOLUTE NEUTROPHIL 2.1 X10E9/L Normal 1.5-6.6 [facility] Comment on above: Performed By: #### C BCA #### [facility] ([id number]) [address] [place] [address] [place] [address] Basophils/100 WBC (Bld) 1.1 % Normal [facility] Comment on above: Performed By: #### C BCA #### [facility] ([id number]) [address] [place] [address] [place] [address] Eosinophils (Bld) [#/Vol] 0.2 10*3/uL Normal 0.0-0.4 [facility] Comment on above: Performed By: #### C BCA #### [facility] ([id number]) [address] [place] [address] [place] [address] Performed By: #### P INR, 72073-2, CBCA, CMP #### [facility] ([id number]) [address] [place] [address] Eosinophils/100 WBC (Bld) 6.6 % Normal [facility] Comment on above: Performed By: #### C BCA #### [facility] ([id number]) [facility] [address] [address] Performed By: #### P INR, 35326-5, CBCA, CMP #### [facility] ([id number]) [address] [place] [address] Erythrocyte distribution width (RBC) [Ratio] 19.0 % High 11.5-15.0 [facility] Comment on above: Performed By: #### C BCA #### [facility] ([id number]) [address] [place] [address] [place] [address] Hematocrit (Bld) [Volume fraction] 23.6 % Low 35-47 [facility] Comment on above: Performed By: #### C BCA #### [facility] ([id number]) [address] [place] [address] Hemoglobin (Bld) [Mass/Vol] 7.6 g/dL Low 11.7-15.5 [facility] Comment on above: Performed By: #### C BCA #### [facility] ([id number]) [address] [place] [address] Lymphocytes (Bld) [#/Vol] 0.9 10*3/uL Low 1.0-3.5 [facility] Comment on above: Performed By: #### C BCA #### [facility] ([id number]) [address] [place] [address] Lymphocytes/100 WBC (Bld) 23.6 % Normal [facility] Comment on above: Performed By: #### C BCA #### [facility] ([id number]) [address] [place] [address] MCH (RBC) [Entitic mass] 34.2 pg High 27-34 [facility] Comment on above: Performed By: #### C BCA #### [facility] ([id number]) [address] [place] [address] MCHC (RBC) [Mass/Vol] 32.3 g/dL Normal 32-36 [facility] Comment on above: Performed By: #### C BCA #### [facility] ([id number]) [address] [place] [address] MCV (RBC) [Entitic vol] 106 fL High 80-100 [facility] Comment on above: Performed By: #### C BCA #### [facility] ([id number]) [address] [place] [address] Monocytes (Bld) [#/Vol] 0.4 10*3/uL Normal 0-0.9 [facility] Comment on above: Performed By: #### C BCA #### [facility] ([id number]) [address] [place] [address] Performed By: #### P INR, 30762-1, CBCA, CMP #### [facility] ([id number]) [address] [place] [address], [place] [address] Monocytes/100 WBC (Bld) 10.5 % Normal [facility] Comment on above: Performed By: #### C BCA #### [facility] ([id number]) [address] [place] [address] Neutrophils/100 WBC (Bld) 58.2 % Normal [facility] Comment on above: Performed By: #### C BCA #### [facility] ([id number]) [address] [place] [address] Platelet mean volume (Bld) [Entitic vol] 8.1 fL Normal 7-12 [facility] Comment on above: Performed By: #### C BCA #### [facility] ([id number]) [address] [place] [address] Platelets (Bld) [#/Vol] 136 10*3/uL Low 150-450 [facility] Comment on above: Performed By: #### C BCA #### [facility] ([id number]) [address] [place] [address] RBC COUNT 2.23 X10E12/L Low 3.80-5.20 [facility] Comment on above: Performed By: #### C BCA #### [facility] ([id number]) [address] [place] [address] WBC (Bld) [#/Vol] 3.6 10*3/uL Low 4.0-11.0 [facility] Comment on above: Performed By: #### C BCA #### [facility] ([id number]) [address] [place] [address] Performed By: #### P INR, 70762-3, CBCA, CMP #### [facility] ([id number]) [address] [place] [address] ABSOLUTE NEUTROPHIL 1.8 X10E9/L Normal 1.5-6.6 [facility] Comment on above: Performed By: #### P INR, 18285-6, CBCA, CMP #### [facility] ([id number]) [address] [place] [address] Basophils/100 WBC (Bld) 1.2 % Normal [facility] Comment on above: Performed By: #### P INR, 18047-4, CBCA, CMP #### [facility] ([id number]) [address] [place] [address] Erythrocyte distribution width (RBC) [Ratio] 16.7 % High 11.5-15.0 [facility] Comment on above: Performed By: #### P INR, 27365-1, CBCA, CMP #### [facility] ([id number]) [address] [place] [address] Hematocrit (Bld) [Volume fraction] 19.7 % Low 35-47 [facility] Comment on above: Performed By: #### P INR, 25371-8, CBCA, CMP #### [facility] ([id number]) [address] [place] [address] Hemoglobin (Bld) [Mass/Vol] 6.3 g/dL Critically low 11.7-15.5 [facility] Comment on above: Performed By: #### P INR, 80751-0, CBCA, CMP #### [facility] ([id number]) [address] [place] [address] Lymphocytes (Bld) [#/Vol] 1.1 10*3/uL Normal 1.0-3.5 [facility] Comment on above: Performed By: #### P INR, 47381-0, CBCA, CMP #### [facility] ([id number]) [address] [place] [address]5526 Lymphocytes/100 WBC (Bld) 31.2 % Normal [facility] Comment on above: Performed By: #### P INR, 28650-2, CBCA, CMP #### [facility] ([id number]) [address] [place] [address] MCH (RBC) [Entitic mass] 35.3 pg High 27-34 [facility] Comment on above: Performed By: #### P INR, 05030-5, CBCA, CMP #### [facility] ([id number]) [address] [place] [address]59 MCHC (RBC) [Mass/Vol] 31.8 g/dL Low 32-36 [facility] Comment on above: Performed By: #### P INR, 72737-0, CBCA, CMP #### [facility] ([id number]) [address] [place] [address] 23904 MCV (RBC) [Entitic vol] 111 fL High 80-100 [facility] Comment on above: Performed By: #### P INR, 20474-6, CBCA, CMP #### [facility] ([id number]) [address] [place] [address] 88671 Monocytes/100 WBC (Bld) 11.3 % Normal [facility] Comment on above: Performed By: #### P INR, 85108-1, CBCA, CMP #### [facility] ([id number]) [address] [place] [address] 41358 Neutrophils/100 WBC (Bld) 49.7 % Normal [facility] Comment on above: Performed By: #### P INR, 84667-9, CBCA, CMP #### [facility] ([id number]) [address] [place] [address] 31709 OVALOCYTE 1+ Abnormal NONE [facility] Comment on above: Performed By: #### P INR, 15059-5, CBCA, CMP #### [facility] ([id number]) [address] [place] [address]996 Platelet mean volume (Bld) [Entitic vol] 8.0 fL Normal 7-12 [facility] Comment on above: Performed By: #### P INR, 71554-6, CBCA, CMP #### [facility] ([id number]) [address] [place] [address] 12600 Platelets (Bld) [#/Vol] 142 10*3/uL Low 150-450 [facility] Comment on above: Performed By: #### P INR, 72103-0, CBCA, CMP #### [facility] ([id number]) [address] [place] [address] 07762 RBC COUNT 1.78 X10E12/L Low 3.80-5.20 [facility] Comment on above: Performed By: #### P INR, 51548-9, CBCA, CMP #### [facility] ([id number]) [address] [place] [address] 38638 TEARDROP 1+ Abnormal NONE [facility] Comment on above: Performed By: #### P INR, 80826-4, CBCA, CMP #### [facility] ([id number]) [address] [place] [address] 60894 CBC auto differentialon 05-0 Basophils (Bld) [#/Vol] 0.0 10*3/uL [facility] Basophils/100 WBC (Bld) 1.1 % [facility] Eosinophils (Bld) [#/Vol] 0.2 10*3/uL [facility] Eosinophils/100 WBC (Bld) 6.6 % [facility] Erythrocyte distribution width (RBC) [Ratio] 19.0 % High 11.5 - 15.0 % [facility] Hematocrit (Bld) [Volume fraction] 23.6 % Low 35 - 47 % [facility] Hemoglobin (Bld) [Mass/Vol] 7.6 g/dL Low 11.7 - 15.5 g/dL [facility] Interpretation and review of laboratory results Abnormal [facility] Lymphocytes (Bld) [#/Vol] 0.9 10*3/uL Low [facility] Lymphocytes/100 WBC (Bld) 23.6 % [facility] MCH (RBC) [Entitic mass] 34.2 pg High 27 - 34 pg [facility] MCHC (RBC) [Mass/Vol] 32.3 g/dL 32 - 3 6 g/dL [facility] MCV (RBC) [Entitic vol] 106 fL High 80 - 100 fL [facility] Monocytes (Bld) [#/Vol] 0.4 10*3/uL [facility] Monocytes/100 WBC (Bld) 10.5 % [facility] Neutrophils (Bld) [#/Vol] 2.1 10*3/uL [facility] Neutrophils/100 WBC (Bld) 58.2 % [facility] Platelet mean volume (Bld) [Entitic vol] 8.1 fL 7 - 12 fL [facility] Platelets (Bld) [#/Vol] 136 10*3/uL Low [facility] RBC (Bld) [#/Vol] 2.23 10*6/uL Low [facility] WBC corrected for nucl RBC Auto (Bld) [#/Vol] 3.[address] [facility] COMPREHENSIVE METABOLIC PANE Juventino 09-01-2023 Albumin [Mass/Vol] 3.0 g/dL Low 3.2-5.3 [facility] Comment on above: Performed By: #### P INR, 60492-6, CBCA, CMP #### [facility] ([id number]) [address] [place] [address], [place] [address] ALP [Catalytic activity/Vol] 73 U/L Normal 39-130 [facility] Comment on above: Performed By: #### P INR, 01554-1, CBCA, CMP #### [facility] ([id number]) [address] [place] [address] 44982 ALT [Catalytic activity/Vol] 20 U/L Normal 0-31 [facility] Comment on above: Performed By: #### P INR, 78482-0, CBCA, CMP #### [facility] ([id number]) [address] [place] [address] 90220 Anion gap [Moles/Vol] 11 mmol/L Normal 5-15 [facility] Comment on above: Performed By: #### P INR, 13213-2, CBCA, CMP #### [facility] ([id number]) [address] [place] [address] 80570 AST [Catalytic activity/Vol] 14 U/L Normal 0-41 [facility] Comment on above: Performed By: #### P INR, 65136-1, CBCA, CMP #### [facility] ([id number]) [address] [place] [address] 02083 Bilirubin [Mass/Vol] 0.5 mg/dL Normal 0.3-1.2 [facility] Comment on above: Performed By: #### P INR, 66242-4, CBCA, CMP #### [facility] ([id number]) [address] [place] [address] 82838 Calcium [Mass/Vol] 8.7 mg/dL Normal 8.5-10.5 [facility] Comment on above: Performed By: #### P INR, 80296-3, CBCA, CMP #### [facility] ([id number]) [address] [place] [address] 07057 Chloride [Moles/Vol] 99 mmol/L Normal 98-109 [facility] Comment on above: Performed By: #### P INR, 32644-9, CBCA, CMP #### [facility] ([id number]) [address] [place] [address] CO2 [Moles/Vol] 25 mmol/L Normal 22-32 [facility] Comment on above: Performed By: #### P INR, 14539-7, CBCA, CMP #### [facility] ([id number]) [address] [place] [address] 14703 Creatinine [Mass/Vol] 5.74 mg/dL High 0.40-1.00 [facility] Comment on above: Result Comment: METH OD TRACEABLE TO IDMS STANDARD Performed By: #### P INR, 22353-4, CBCA, CMP #### [facility] ([id number]) [address] [place] [address] 09732 GFR/1.73 sq M.predicted among non-blacks MDRD (S/P/Bld) [Vol rate/Area] 7 mL/min/{1.73_m2} Low >59 [facility] Comment on above: Result Comment: Reported eGFR is based on the CKD-EPI 2020 equation that does not use a race coefficient. Performed By: #### P INR, 88137-1, CBCA, CMP #### [facility] ([id number]) [address] [place] [address]607 Glucose [Mass/Vol] 135 mg/dL High 65-99 [facility] Comment on above: Performed By: #### P INR, 11327-4, CBCA, CMP #### [facility] ([id number]) [address] [place] [address] 10675 Potassium [Moles/Vol] 5.4 mmol/L High 3.5-5.0 [facility] Comment on above: Performed By: #### P INR, 78280-4, CBCA, CMP #### [facility] ([id number]) [address] [place] [address] 97727 Protein [Mass/Vol] 6.4 g/dL Normal 6.0-8.0 [facility] Comment on above: Performed By: #### P INR, 71363-5, CBCA, CMP #### [facility] ([id number]) [address] [place] [address] 83772 Sodium [Moles/Vol] 135 mmol/L Normal 134-146 [facility] Comment on above: Performed By: #### P INR, 99266-8, CBCA, CMP #### [facility] ([id number]) [address] [place] [address] 62239 Urea nitrogen [Mass/Vol] 66 mg/dL High 5-27 [facility] Comment on above: Performed By: #### P INR, 06581-5, CBCA, CMP #### [facility] ([id number]) [address] [place] [address] 91343 Glucose Glucometer (BldC) [M ass/Vol]on 09-01-2023 Glucose [Mass/Vol] 160 mg/dL High 65 - 99 mg/dL [facility] Interpretation and review of laboratory results Abnormal [facility] Glucose [Mass/Vol] 160 mg/dL High 65-99 [facility] Glucose [Mass/Vol] 118 mg/dL High 65 - 99 mg/dL [facility] Interpretation and review of laboratory results Abnormal [facility] Glucose [Mass/Vol] 118 mg/dL High 65-99 [facility] Glucose [Mass/Vol] 124 mg/dL High 65-99 [facility] HGB AND HCTon 09-01-2023 Hematocrit (Bld) [Volume fraction] 20.6 % Low 35-47 [facility] Comment on above: Performed By: #### H H #### [facility] ([id number]) [address] [place] [address] 52195 Hemoglobin (Bld) [Mass/Vol] 6.7 g/dL Critically low 11.7-15.5 [facility] Comment on above: Performed By: #### H H #### [facility] ([id number]) [address] [place] [address] 53766 POTASSIUMon 09-01-2023 Potassium [Moles/Vol] 5.5 mmol/L High 3.5-5.0 [facility] Comment on above: Performed By: #### 2 823-3 #### [facility] ([id number]) [address] [place] [address] PROTIME AND INRon 09-01-2023 INR Coag (PPP) [Relative time] 1.0 {INR} Normal 0.8-1.1 [facility] Comment on above: Performed By: #### P INR, 87154-2, CBCA, CMP #### [facility] ([id number]) [address] [place] [address] 17727 PT Coag (PPP) [Time] 11.4 s Normal 9.8-13.2 [facility] Comment on above: Result Comment: NEW REFERENCE RANGE Performed By: #### P INR, 84787-4, CBCA, CMP #### [facility] ([id number]) [address] [place] [address] 42795 Potassiumon 09-01-2023 Potassium [Moles/Vol] 5.5 mmol/L High 3.5 - 5.0 mmol/L [facility] Potassium [Moles/Vol]on Interpretation and review of laboratory results Abnormal [facility] aPTT Coag (PPP) [Time]on aPTT Coag (Bld) [Time] 30 s Normal 26-37 [facility] Comment on above: Result Comment: NEW REFERENCE RANGE Performed By: #### P INR, 41937-3, CBCA, CMP #### [facility] ([id number]) [address] [place] [address] 63292 CBC AUTO DIFFon 03-02-2022 BASO # 0.0 103/ul Normal 0.0-0.1 [facility] Comment on above: Performed By: #### C BC #### [facility] [address] [address] [address] Iva Graham Basophils/100 WBC (Bld) 0.4 % Normal 0.2-2.0 [facility] Comment on above: Performed By: #### C BC #### [facility] [address] [address] [address] Iva Graham EO # 0.2 103/ul Normal 0.0-0.7 [facility] Comment on above: Performed By: #### C BC #### [facility] [address] [address] [address] Iva Graham Eosinophils/100 WBC (Bld) 3.3 % Normal 0.9-7.0 [facility] Comment on above: Performed By: #### C BC #### [facility] [address] [place] [address] Dr. Iva Graham Erythrocyte distribution width (RBC) [Ratio] 15.7 % Critically high 11.0-15.0 [facility] Comment on above: Performed By: #### C BC #### [facility] [address] [place] [address] Dr. Iva Graham Hematocrit (Bld) [Volume fraction] 24.1 % Critically low 36.0-48.0 [facility] Comment on above: Performed By: #### C BC #### [facility] [address] [place] [address] Dr. Iva Graham Hemoglobin (Bld) [Mass/Vol] 7.2 g/dL Critically low 12.0-16.0 [facility] Comment on above: Performed By: #### C BC #### [facility] [address] [place] [address] Dr. Iva Graham IG # 0.12 10e3/ul Critically high 0.00-0.03 [facility] Comment on above: Performed By: #### C BC #### [facility] [address] [place] [address] Dr. Iva Graham IG % 1.7 % Critically high 0.0-0.5 [facility] Comment on above: Performed By: #### C BC #### [facility] [address] [place] [address] Dr. Iva Graham LYMPH # 1.3 103/ul Normal 1.2-3.8 [facility] Comment on above: Performed By: #### C BC #### [facility] [address] [place] [address] Dr. Iva Graham Lymphocytes/100 WBC (Bld) 17.8 % Critically low 20.5-60.0 [facility] Comment on above: Performed By: #### C BC #### [facility] [address] [place] [address] Dr. Iva Graham MANUAL DIFF REQ NO Normal [facility] Comment on above: Performed By: #### C BC #### [facility] [address] [place] [address] Dr. Iva Graham MCH (RBC) [Entitic mass] 29.0 pg Normal 26.7-34.0 [facility] Comment on above: Performed By: #### C BC #### [facility] [address] [place] [address] Dr. Iva Graham MCHC (RBC) [Mass/Vol] 29.9 g/dL Normal 29.9-35.2 [facility] Comment on above: Performed By: #### C BC #### [facility] [address] [place] [address] Dr. Iva Graham MCV (RBC) [Entitic vol] 97.2 fL Normal 81.0-99.0 [facility] Comment on above: Performed By: #### C BC #### [facility] [address] [place] [address] Dr. Iva Graham MONO # 0.4 103/ul Normal 0.3-0.8 [facility] Comment on above: Performed By: #### C BC #### [facility] [address] [place] [address] Dr. Iva Graham Monocytes/100 WBC (Bld) 6.1 % Normal 1.7-12.0 [facility] Comment on above: Performed By: #### C BC #### [facility] [address] [address] [address] Iva Graham NEUT # 5.1 103/ul Normal 1.4-6.5 [facility] Comment on above: Performed By: #### C BC #### [facility] [address] [address] [address] Iva Graham Neutrophils/100 WBC (Bld) 70.7 % Normal 43.0-75.0 [facility] Comment on above: Performed By: #### C BC #### [facility] [address] [address] [address] Iva Graham Platelet mean volume (Bld) [Entitic vol] 10.8 fL Normal 9.5-13.5 [facility] Comment on above: Performed By: #### C BC #### [facility] [address] [address] [address] Iva Graham PLT 236 103/ul Normal 150-450 [facility] Comment on above: Performed By: #### C BC #### [facility] [address] [place] [address] Dr. Iva Graham RBC 2.48 106/ul Critically low 4.20-5.40 [facility] Comment on above: Performed By: #### C BC #### [facility] [address] [place] [address] Dr. Iva Graham WBC 7.2 103/ul Normal 4.0-11.0 [facility] Comment on above: Performed By: #### C BC #### [facility] [address] [place] [address] Dr. Iva Graham POINT OF CARE GLUCOSEon 11-0 Glucose [Mass/Vol] 107 mg/dL Critically high 74-106 [facility] Comment on above: Performed By: #### P OCGLUC #### [facility] [address] [place] [address] Dr. Iva Graham Glucose [Mass/Vol] 121 mg/dL Critically high 74-106 [facility] Comment on above: Performed By: #### P OCGLUC #### [facility] [address] [address] [address] Iva Graham PROF CHEM 8 (BAS METB)on Anion gap [Moles/Vol] 8.8 mmol/L Normal [facility] Comment on above: Performed By: #### B MP #### [facility] [address] [address] [address] Iva Graham Calcium [Mass/Vol] 8.6 mg/dL Normal 8.5-10.1 [facility] Comment on above: Performed By: #### B MP #### [facility] [address] [address] [address] Iva Graham Chloride [Moles/Vol] 108 mmol/L Critically high 98-107 [facility] Comment on above: Performed By: #### B MP #### [facility] [address] [address] [address] Iva Graham CO2 [Moles/Vol] 29.5 mmol/L Normal 21.0-32.0 [facility] Comment on above: Performed By: #### B MP #### [facility] [address] [address] [address] Iva Graham Creatinine [Mass/Vol] 3.17 mg/dL Critically high 0.55-1.02 [facility] Comment on above: Performed By: #### B MP #### [facility] [address] [address] [address] Iva Graham EGFR-AF INDIAN 17 mL/min/1.73m2 Critically low >=60 [facility] Comment on above: Performed By: #### B MP #### [facility] [address] [address] [address] Iva Graham EGFR-NON AF INDIAN 14 mL/min/1.73m2 Critically low >=60 [facility] Comment on above: Performed By: #### B MP #### [facility] [address] [address] [address] Iva Graham Glucose [Mass/Vol] 116 mg/dL Critically high 74-106 [facility] Comment on above: Performed By: #### B MP #### [facility] [address] [address] [address] Iva Graham Potassium [Moles/Vol] 4.3 mmol/L Normal 3.5-5.1 [facility] Comment on above: Performed By: #### B MP #### [facility] [address] [address] [address] Iva Graham Sodium [Moles/Vol] 142 mmol/L Normal 136-145 [facility] Comment on above: Performed By: #### B MP #### [facility] [address] [address] [address] Iva Graham Urea nitrogen [Mass/Vol] 56.0 mg/dL Critically high 7.0-18.0 [facility] Comment on above: Performed By: #### B MP #### [facility] [address] [address] [address] Iva Graham Urea nitrogen/Creatinine [Mass ratio] 17.7 mg/mg Normal [facility] Comment on above: Performed By: #### B MP #### [facility] [address] [address] [address] Iva Graham Vital Signs Date Time Vital Sign Value Performing Clinician Facility 08-10-2024 20:18-0400 Heart rate 81 /min Martin Garber MD Work Phone: [facility] 08-10-2024 20:18-0400 Respiratory rate 18 /min Martin Garber MD Work Phone: [facility] 08-10-2024 20:18-0400 SaO2% (BldA) [Mass fraction] 100 % Martin Garber MD Work Phone: [facility] 08-10-2024 19:58-0400 Body temperature 98.71 [degF] Martin Garber MD Work Phone: [facility] 08-10-2024 19:58-0400 Diastolic blood pressure 54 mm[Hg] Martin Garber MD Work Phone: [facility] 08-10-2024 19:58-0400 Systolic blood pressure 134 mm[Hg] Martin Garber MD Work Phone: [facility] 08-10-2024 16:07-0400 Body mass index (BMI) [Ratio] 39.96 kg/m2 Martin Garber MD Work Phone: [facility] 08-10-2024 16:07-0400 Body weight 105.6 kg Martin Garber MD Work Phone: [facility] 08-08-2024 13:22-0400 Body height 162.6 cm Martin Garber MD Work Phone: [facility] 08-08-2024 10:39-0400 Body temperature 98.6 [degF] Martin Garber MD Work Phone: [facility] 08-08-2024 10:39-0400 SaO2% (BldA) [Mass fraction] 97 % Martin Garber MD Work Phone: [facility] 08-08-2024 10:39-0400 SaO2% (BldA) [Mass fraction] 100 % Martin Garber MD Work Phone: [facility] 08-08-2024 10:35-0400 SaO2% (BldA) [Mass fraction] 100 % UNKNOWN PHYSICIAN [facility] Comment on above: Performed By: #### CBCA, FEPR, 2276-4, 2 284-8, 2132-9 #### [facility] ([id number]) [address] [place] [address], [address] [place] [address] 04-23-2024 17:30-0500 Diastolic blood pressure 60 mm[Hg] Dona Kincaid MD Work Phone: [facility] 04-23-2024 17:30-0500 Systolic blood pressure 149 mm[Hg] Dona Kincaid MD Work Phone: [facility] 04-23-2024 16:06-0500 Body temperature 98.49 [degF] Dona Kincaid MD Work Phone: [facility] 04-23-2024 16:06-0500 Heart rate 68 /min Dona Kincaid MD Work Phone: [facility] 04-23-2024 16:06-0500 Respiratory rate 16 /min Dona Kincaid MD Work Phone: [facility] 04-23-2024 16:06-0500 SaO2% (BldA) [Mass fraction] 98 % Dona Kincaid MD Work Phone: [facility] 04-23-2024 14:46-0500 Body temperature 98.6 [degF] Dona Kincaid MD Work Phone: [facility] 04-23-2024 05:00-0500 Body mass index (BMI) [Ratio] 38.14 kg/m2 Dona Kincaid MD Work Phone: [facility] 04-23-2024 05:00-0500 Body weight 100.8 kg Dona Kincaid MD Work Phone: [facility] 04-21-2024 02:01-0500 Body height 162.6 cm Dona Kincaid MD Work Phone: [facility] 02-24-2024 22:44-0400 Diastolic blood pressure 70 mm[Hg] [facility] Work Phone: [facility] 02-24-2024 22:44-0400 Heart rate 80 /min [facility] Work Phone: [facility] 02-24-2024 22:44-0400 Respiratory rate 18 /min [facility] Work Phone: [facility] 02-24-2024 22:44-0400 SaO2% (BldA) [Mass fraction] 98 % [facility] Work Phone: [facility] 02-24-2024 22:44-0400 Systolic blood pressure 155 mm[Hg] Services [facility] Work Phone: [facility] 02-24-2024 14:36-0400 Inhaled oxygen flow rate 2 L/min [facility] Work Phone: [facility] 02-24-2024 13:24-0400 Body height 172.72 cm [facility] Work Phone: [facility] 02-24-2024 13:24-0400 Body weight 104.8 kg [facility] Work Phone: [facility] 02-11-2024 16:22-0400 Diastolic blood pressure 77 mm[Hg] [facility] Work Phone: [facility] 02-11-2024 16:22-0400 Heart rate 67 /min [facility] Work Phone: [facility] 02-11-2024 16:22-0400 Inhaled oxygen flow rate 2 L/min [facility] Work Phone: [facility] 02-11-2024 16:22-0400 Respiratory rate 18 /min [facility] Work Phone: [facility] 02-11-2024 16:22-0400 SaO2% (BldA) [Mass fraction] 97 % [facility] Work Phone: [facility] 02-11-2024 16:22-0400 Systolic blood pressure 178 mm[Hg] [facility] Work Phone: [facility] 02-11-2024 10:28-0400 Body temperature 97.8 [degF] [facility] Work Phone: [facility] 02-11-2024 10:27-0400 Body height 162.56 cm [facility] Work Phone: [facility] 02-11-2024 10:27-0400 Body weight 105.2 kg [facility] Work Phone: [facility] 01-14-2024 13:30-0400 Diastolic blood pressure 70 mm[Hg] [facility] Work Phone: [facility] 01-14-2024 13:30-0400 Heart rate 71 /min [facility] Work Phone: [facility] 01-14-2024 13:30-0400 Inhaled oxygen flow rate 2 L/min [facility] Work Phone: [facility] 01-14-2024 13:30-0400 Respiratory rate 18 /min [facility] Work Phone: [facility] 01-14-2024 13:30-0400 SaO2% (BldA) [Mass fraction] 95 % [facility] Work Phone: [facility] 01-14-2024 13:30-0400 Systolic blood pressure 186 mm[Hg] [facility] Work Phone: [facility] 01-14-2024 08:25-0400 Body height 157.48 cm [facility] Work Phone: [facility] 01-14-2024 08:25-0400 Body temperature 97.6 [degF] [facility] Work Phone: [facility] 01-14-2024 08:25-0400 Body weight 108.9 kg [facility] Work Phone: [facility] 09-03-2023 12:50-0400 Body temperature 98.4 [degF] [facility] 09-03-2023 12:50-0400 Diastolic blood pressure 68 mm[Hg] Don[facility]aid [facility] 09-03-2023 12:50-0400 Heart rate 74 /min [facility] 09-03-2023 12:50-0400 Systolic blood pressure 152 mm[Hg] Don[facility]aid [facility] 09-03-2023 07:47-0400 Respiratory rate 16 /min Dona Kincaid MD Work Phone: [facility] 09-03-2023 07:47-0400 SaO2% (BldA) [Mass fraction] 100 % Dona Kincaid MD Work Phone: [facility] 09-03-2023 01:31-0400 Body height 157.5 cm Dona Kincaid MD Work Phone: [facility] 09-03-2023 01:31-0400 Body mass index (BMI) [Ratio] 42.93 kg/m2 Dona Kincaid MD Work Phone: [facility] 09-03-2023 01:31-0400 Body weight 106.5 kg Dona Kincaid MD Work Phone: [facility] 07-14-2023 15:04-0400 Body height 157.5 cm Santos Fox MD Work Phone: [facility] 07-14-2023 15:04-0400 Body mass index (BMI) [Ratio] 40.23 kg/m2 Santos Fox MD Work Phone: [facility] 07-14-2023 15:04-0400 Body temperature 97.5 [degF] Santos Fox MD Work Phone: [facility] 07-14-2023 15:04-0400 Body weight 99.79 kg Santos Fox MD Work Phone: [facility] 07-14-2023 15:04-0400 Diastolic blood pressure 48 mm[Hg] Santos Fox MD Work Phone: [facility] 07-14-2023 15:04-0400 Heart rate 79 /min Santos Fox MD Work Phone: [facility] 07-14-2023 15:04-0400 Respiratory rate 20 /min Santos Fox MD Work Phone: [facility] 07-14-2023 15:04-0400 SaO2% (BldA) [Mass fraction] 95 % Santos Fox MD Work Phone: [phone] [place] [address] 07-14-2023 15:0400 Systolic blood pressure 147 mm[Hg] Santos Fox MD Work Phone: [facility] Encounters Encounter Date Encounter Type Care Provider Facility Start: 08-24-2024 End: 08-24-2024 ambulatory [facility] Start: 08-22-2024 End: 08-22-2024 ambulatory ZINA SINGLETON [facility] Start: 08-17-2024 End: 08-17-2024 ambulatory FRAN HWANG [facility] Start: 08-15-2024 End: 08-15-2024 ambulatory [facility] Start: 08-15-2024 End: 08-16-2024 Emergency department patient visit DEENAEDWARDO PERKINS [facility] Start: 08-14-2024 End: 08-14-2024 ambulatory MARTIN [facility] Start: 08-09-2024 End: 08-09-2024 ambulatory [facility] Jordana [facility] Start: 08-07-2024 End: 08-10-2024 Evaluation and management of inpatient Coreen Houser MD Work Phone: [facility] - GEN 6 Progressive Start: 08-06-2024 End: 08-07-2024 Emergency department patient visit NORIS Jordana [facility] Start: 05-29-2024 End: 05-29-2024 Clinisync Result Encounter Generic External Data Provider [facility] External Department Unsolicited Start: 05-29-2024 End: 05-29-2024 Clinisync Result Encounter Generic External Data Provider [facility] External Department Unsolicited Start: 04-23-2024 End: 04-23-2024 ambulatory YESIKA DUFFY [facility] Start: 04-21-2024 End: 04-21-2024 Telephone encounter Lauren Aparicio [facility] Boris alves Comment on above: Results Start: 04-21-2024 End: 04-23-2024 ambulatory JOSEPH Carrasquillo [facility] Start: 04-21-2024 End: 04-23-2024 Subsequent hospital visit by physician Joseph Pleitez MD Work Phone: [facility] Comment on above: Hypothyroidism, unsp ecified type (Primary Dx) Start: 04-20-2024 End: 04-21-2024 Emergency department patient visit DEBORA GE [facility] Start: 02-27-2024 ambulatory [facility] Start: 02-24-2024 End: 02-24-2024 Emergency department patient visit Services [employer] Work Phone: [facility] Work Phone: Start: 02-11-2024 End: 02-11-2024 Emergency department patient visit Services [employer] Work Phone: [facility] Work Phone: Start: 01-14-2024 End: 01-14-2024 Emergency department patient visit Services [employer] Work Phone: [facility] Work Phone: Start: 01-12-2024 End: 01-13-2024 Emergency department patient visit OSMAN [facility] Start: 01-12-2024 End: 01-12-2024 Emergency department patient visit [facility] Start: 01-12-2024 End: 01-13-2024 Emergency department patient visit OSMAN Bernard [facility] Start: 12-07-2023 End: 12-07-2023 ambulatory [facility] Start: 12-06-2023 End: 12-07-2023 Emergency department patient visit WILL PEREZ [facility] Start: 12-06-2023 End: 12-06-2023 Emergency department patient visit [facility] Start: 09-13-2023 End: 09-13-2023 ambulatory JACQUES MASTERSON [facility] Start: 09-05-2023 End: 09-05-2023 ambulatory [facility] Start: 09-02-2023 End: 09-02-2023 ambulatory ALONSO ZHU [facility] Start: 09-01-2023 End: 09-03-2023 ambulatory DONA KINCAID [facility] Start: 09-01-2023 End: 09-03-2023 Subsequent hospital visit by physician Dona Kincaid MD Work Phone: [facility] Comment on above: ESRD (end stage bibi l disease) on dialysis ([facility]) (Primary Dx); Other iron deficiency anemia Start: 09-01-2023 End: 09-01-2023 Emergency department patient visit [facility] Start: 07-21-2023 Documentation procedure Maia Monique [facility] Start: 07-14-2023 End: 07-14-2023 Office outpatient visit 25 minutes Santos Fox MD [facility] Comment on above: Anemia of chronic di sease (Primary Dx); Stage 3b chronic kidney disease ([facility]) Start: 07-14-2023 Documentation procedure Maia Silveira [facility] - Medical Oncology Start: 03-01-2022 End: 03-02-[address] KARIN ROBBINS Facility: Start: 08-17-2004 Evaluation and management of inpatient Services [facility] Work Phone: [facility] [place] Work Phone: Procedures Date Procedure Procedure Detail Performing Clinician Start: 08-10-2024 HEMODIALYSIS INPATIENT Mike Masterson MD Work Phone: Start: 08-10-2024 Gluc bld gluc mntr d ev cleared fda spec home use Coreen Houser MD Work Phone: Start: 08-10-2024 Gluc bld gluc mntr d ev cleared fda spec home use Coreen Houser MD Work Phone: Start: 08-10-2024 End: 08-10-2024 Basic metabolic panel calcium total Brooklyn Heath MD Work Phone: Start: 08-09-2024 End: 08-09-2024 Basic metabolic panel calcium total Brooklyn Heath MD Work Phone: Start: 08-08-2024 End: 08-08-2024 Assay of free thyroxine Martin Garber MD Work Phone: Start: 08-08-2024 End: 08-08-2024 Basic metabolic panel calcium total Mike Masterson MD Work Phone: Start: 08-08-2024 HEMODIALYSIS INPATIENT Mike Masterson MD Work Phone: Start: 08-08-2024 Ecg routine ecg w/le ast 12 lds trcg only w/o i&r Mike Masterson MD Work Phone: Start: 08-08-2024 Gluc bld gluc mntr d ev cleared fda spec home use Coreen Houser MD Work Phone: Start: 08-08-2024 Gluc bld gluc mntr d ev cleared fda spec home use Coreen Houser MD Work Phone: Start: 08-08-2024 Calcium ionized Coreen catalan MD Work Phone: Start: 08-08-2024 Potassium serum plas ma/whole blood Amrik Jimenes MD Work Phone: Start: 08-08-2024 Ecg routine ecg w/le ast 12 lds trcg only w/o i&r Amrik Jimenes MD Work Phone: Start: 08-08-2024 Gluc bld gluc mntr d ev cleared fda spec home use Coreen Houser MD Work Phone: Start: 08-08-2024 Basic metabolic pane l calcium total Brooklyn Heath MD Work Phone: Start: 08-08-2024 End: 08-08-2024 Cyanocobalamin vitamin b-12 Brooklyn Chopra MD Work Phone: Start: 05-29-2024 ALL BASIC METABOLIC PANEL Generic External Data Provider Start: 05-29-2024 ALL PRO BNP Generic Ex ternal Data Provider Start: 04-23-2024 Gluc bld gluc mntr d ev cleared fda spec home use Joseph Pleitez MD Work Phone: Start: 04-23-2024 Blood gases any comb ination ph pco2 po2 co2 hco3 Joseph Pleitez MD Work Phone: Start: 04-23-2024 Gluc bld gluc mntr d ev cleared fda spec home use Joseph Pleitez MD Work Phone: Start: 04-23-2024 Echo tthrc r-t 2d w/ wom-mode compl spec&colr d Haylee Mendoza Niranjan [employer] Work Phone: Start: 04-23-2024 Gluc bld gluc mntr d ev cleared fda spec home use Joseph Pleitez MD Work Phone: Start: 04-23-2024 Comprehensive metabo lic panel Darlyn Peng [employer] Work Phone: Start: 04-22-2024 Gluc bld gluc mntr d ev cleared fda spec home use Joseph Pleitez MD Work Phone: Start: 04-22-2024 HEMODIALYSIS / ULTRAFILTRATION - LYNDONLO Tiffanie Orosco MD Work Phone: Start: 04-22-2024 Gluc bld gluc mntr d ev cleared fda spec home use Joseph Pleitez MD Work Phone: Start: 04-22-2024 Gluc bld gluc mntr d ev cleared fda spec home use Joseph Pleitez MD Work Phone: Start: 04-22-2024 Gluc bld gluc mntr d ev cleared fda spec home use Joseph Pleitez MD Work Phone: Start: 04-22-2024 Comprehensive metabo lic panel Darlyn Peng [employer] Work Phone: Start: 04-22-2024 Iaad ia hepatitis b surface antigen Darlyn Peng [employer] Work Phone: Start: 04-21-2024 Gluc bld gluc mntr d ev cleared fda spec home use Joseph Pleitez MD Work Phone: Start: 04-21-2024 Gluc bld gluc mntr d ev cleared fda spec home use Joseph Pleitez MD Work Phone: Start: 04-21-2024 End: 04-21-2024 Mra head w/o contrst material Dion Hank Antunez MD Work Phone: Start: 04-21-2024 Mri brain brain stem w/o contrast material Joseph Pleitez MD Work Phone: Start: 04-21-2024 RESP PATHOGENS PANEL/SARS-COV-2 Haylee Mendoza Niranjan [employer] Work Phone: Start: 04-21-2024 Gluc bld gluc mntr d ev cleared fda spec home use Joseph Pleitez MD Work Phone: Start: 04-21-2024 Radiologic exam ches t single view Haylee Whitege [employer] Work Phone: Start: 04-21-2024 Assay of phosphorus inorganic Akinfemi S Herve FERNANDEZ Work Phone: Start: 04-21-2024 Gluc bld gluc mntr d ev cleared fda spec home use Joseph Pleitez MD Work Phone: Start: 04-21-2024 Cyanocobalamin vitamin b-12 Darlyn Peng [employer] Work Phone: Start: 04-21-2024 Adult depression scr eening assessment Lauren Aparicio Start: 02-24-2024 Plain chest X-ray [facility] Work Phone: Start: 02-11-2024 Plain chest X-ray [facility] Work Phone: Start: 01-14-2024 Plain chest X-ray [facility] Work Phone: Start: 09-03-2023 HEMODIALYSIS / ULTRAFILTRATION - LYNDONLO Martha Lockwood MD Work Phone: Start: 09-03-2023 Blood count hemoglobin Libby Griffiths [employer] Work Phone: Start: 09-03-2023 Gluc bld gluc mntr d ev cleared fda spec home use Dona Kincaid MD Work Phone: Start: 09-03-2023 Gluc bld gluc mntr d ev cleared fda spec home use Dona Kincaid MD Work Phone: Start: 09-03-2023 Blood count hemoglobin Hellen Holm [employer] Work Phone: Start: 09-03-2023 Comprehensive metabo lic panel Libby Griffiths [employer] Work Phone: Start: 09-03-2023 End: 09-03-2023 TRANSFUSE RED BLOOD CELLS Hellen crawford [employer] Work Phone: Start: 09-03-2023 ABORH Jena Holm MD Start: 09-02-2023 Antibody screen Dona Kincaid MD Work Phone: Start: 09-02-2023 ABO/RH Hellen ireland [employer] Work Phone: Start: 09-02-2023 CROSSMATCH RBC Hellen Holm [employer] Work Phone: Start: 09-02-2023 End: 09-02-2023 Gluc bld gluc mntr dev cleared fda spec home use Dona Kincaid MD Work Phone: Start: 09-02-2023 Antibody screen rbc each serum technique Hellen Holm [employer] Work Phone: Start: 09-02-2023 REPEATED ABORH Jena Holm MD Start: 09-02-2023 Gluc bld gluc mntr d ev cleared fda spec home use Dona Kincaid MD Work Phone: Start: 09-02-2023 Blood count hematocrit Libby Griffiths [employer] Work Phone: Start: 09-02-2023 Gluc bld gluc mntr d ev cleared fda spec home use Dona Kincaid MD Work Phone: Start: 09-02-2023 HEMODIALYSIS / ULTRAFILTRATION - LYNDONLO Jacques Masterson MD Work Phone: Start: 09-02-2023 Hepatitis b surf ant ibody hbsab Arvind Garcia MD Work Phone: Start: 09-02-2023 Iaad ia hepatitis b surface antigen Arvind Garcia MD Work Phone: Start: 09-02-2023 Gluc bld gluc mntr d ev cleared fda spec home use Dona Kincaid MD Work Phone: Start: 09-02-2023 Comprehensive metabo lic panel Libby Griffiths [employer] Work Phone: Start: 09-02-2023 Blood count hematocrit Libby Griffiths [employer] Work Phone: Start: 09-01-2023 End: 09-01-2023 Potassium serum plasma/whole blood Libby Griffiths [employer] Work Phone: Start: 09-01-2023 End: 09-01-2023 Gluc bld gluc mntr dev cleared fda spec home use Dona Kincaid MD Work Phone: Start: 09-01-2023 PULSE OXIMETRY, SPOT Cy ntmikael Griffiths [employer] Work Phone: Start: 07-14-2019 Microalbumin [Mass/v olume] in Urine by Test strip Lauren Aparicio Start: 05-31-2019 Mammography Generic Pr ovider Plan of Treatment Date Care Activity Detail Author Start: 04-21-2025 Adult BMI Screening Adult BMI Screen ing [facility] Start: 04-21-2025 Depression Screening Depression Scre ening [facility] Start: 04-21-2025 Tobacco Screening Tobacco Screening [facility] Start: 07-22-2024 End: 04-23-2025 Thyroid profile includes TSH FT4 Thyroid profile includes TSH FT4 Lab Routine Hypothyroidism, unspecified type Expected: 07/22/2024 (Approximate), Expires: 04/23/2025 [employer] Work Phone: Comment on above: Expected: 07/22/2024 (Approximate), Expires: 04/23/2025 Start: 07-20-2024 Hemoglobin A1c measurement Diabetes: Hemoglobin A1C [facility] Start: 07-13-2024 Adult BMI Screening Adult BMI Screen ing [facility] Start: 04-04-2024 Adult BMI Screening Adult BMI Screen ing [facility] Start: 04-04-2024 Tobacco Screening Tobacco Screening [facility] Start: 01-01-2024 COVID-19 Vaccine ( season) COVID-19 Vaccine ( season) [facility] Start: 01-01-2024 Influenza vaccination [facility] Start: 03-09-2023 Urine screening for protein Diabetes: Urine Protein Screening [facility] Start: 12-31-2022 COVID-19 Vaccine ( season) COVID-19 Vaccine ( season) [facility] Start: 12-31-2022 Influenza vaccination Influenza Vacc ine [facility] Start: 09-24-2022 Glaucoma screening Diabetes: R etinopathy Screening [facility] Start: 07-13-2020 Urine screening for protein Urine Microalbumin [facility] Start: 07-05-2020 Pneumococcal Vaccine : 65+ Years (2 of 2 - PCV) Pneumococcal Vaccine: 65+ Years (2 of 2 - PCV) [facility] Start: 05-31-2020 Screening for malign ant neoplasm of breast Mammogram [facility] Start: 01-29-2016 Fall Risk Screening Fall Risk Screen ing [facility] Start: 2001 Administration of varicella zoster vaccine Zoster (Shingles) Vaccine (1 of 2) [facility]: 1970 DTaP,Tdap and Td Vaccines (1 - Tdap) DTaP,Tdap and Td Vaccines (1 - Tdap) [facility] Start: 1969 Adult BMI Follow Up Plan Adult BMI Follow Up Plan [facility] Start: 1969 Diabetic foot examination [facility] Start: 1963 [facility] Start: 1950 Glaucoma screening Diabetic [facility] Start: 1950 Medicare Annual Well ness Visit Medicare Annual Wellness Visit [facility] Start: 1950 Screening for malign ant neoplasm of colon [facility] End: 08-08-2024 Ammonia [Mass/volume] in Plasma Ammonia Lab Routine Add-on for 1 Occurrences starting 08/08/2024 until 08/08/2024 [employer] Work Phone: Comment on above: Add-on for 1 Occurre nces starting 08/08/2024 until 08/08/2024 Basic metabolic 2000 panel - Serum or Plasma Basic Metabolic Panel Lab Routine Lab max of 3 days, Daily, for lab use only until discontinued starting 08/08/2024, 3 completed [facility] Comment on above: Lab max of 3 days, D aily, for lab use only until discontinued starting 08/08/2024, 3 completed Bedside Glucose *Place/Obtain serum glucose if >500 per glucometer. Bedside Glucose *Place/Obtain serum glucose if >500 per glucometer. Point of Care Testing Routine 4X Daily (AC and at bedtime) until discontinued starting 08/09/2024, 6 completed [employer] Work Phone: Comment on above: 4X Daily (AC and at bedtime) until discontinued starting 08/09/2024, 6 completed Bedside Glucose *Place/Obtain serum glucose if >500(>600 [facility]) per glucometer. Bedside Glucose *Place/Obtain serum glucose if >500(>600 [facility]) per glucometer. Point of Care Testing Routine 4X Daily (AC and at bedtime) until discontinued starting 09/01/2023, 9 completed [employer] Phone: Comment on above: 4X Daily (AC and at bedtime) until discontinued starting 09/01/2023, 9 completed CBC W Auto Different ial panel - Blood CBC auto differential Lab Routine Lab max of 3 days, Daily, for lab use only until discontinued starting 09/02/2023, 2 completed [employer] Comment on above: Lab max of 3 days, D aily, for lab use only until discontinued starting 09/02/2023, 2 completed CBC W Auto Different ial panel - Blood CBC auto differential Lab Routine Lab max of 3 days, Daily, for lab use only until discontinued starting 08/08/2024, 3 completed [facility] Comment on above: Lab max of 3 days, D aily, for lab use only until discontinued starting 08/08/2024, 3 completed Comprehensive metabo lic 2000 panel - Serum or Plasma Comprehensive metabolic panel Lab Routine Lab max of 3 days, Daily, for lab use only until discontinued starting 09/02/2023, 2 completed [facility] Comment on above: Lab max of 3 days, D aily, for lab use only until discontinued starting 09/02/2023, 2 completed End: 09-04-2023 Hemoglobin and hematocrit, blood Hemoglobin and hematocrit, blood Lab Routine Lab max of 3 days, Every 8hr, lab use only for 3 Days starting 09/02/2023 until 09/04/2023, 4 completed [employer] Comment on above: Lab max of 3 days, E very 8hr, lab use only for 3 Days starting 09/02/2023 until 09/04/2023, 4 completed Magnesium [Mass/volu me] in Serum or Plasma Magnesium Lab Routine Lab max of 3 days, Daily, for lab use only until discontinued starting 09/02/2023, 2 completed [employer] Comment on above: Lab max of 3 days, D aily, for lab use only until discontinued starting 09/02/2023, 2 completed Magnesium [Mass/volu me] in Serum or Plasma Magnesium Lab Routine Lab max of 3 days, Daily, for lab use only until discontinued starting 08/08/2024, 3 completed [facility] Comment on above: Lab max of 3 days, D aily, for lab use only until discontinued starting 08/08/2024, 3 completed Oxygen Therapy - Maintain SpO2: 90%; *SENIOR PHP SOFTWARE DEVELOPER Guidelines for O2: Yes; Document: [email or web address]\EPIC_Reference\Orders\ Respiratory Care Guidelines\CPG Oxygen 2019.pdf Oxygen Therapy - Maintain SpO2: 90%; *SENIOR PHP SOFTWARE DEVELOPER Guidelines for O2: Yes; Document: [email or web address]\EPIC_Reference\Order s\Respiratory Care Guidelines\CPG Oxygen 2019.pdf Respiratory Care Routine As Needed until discontinued starting 09/01/2023 [employer] Comment on above: As Needed until disc ontinued starting 09/01/2023 Oxygen Therapy - Maintain SpO2: 90%; *SENIOR PHP SOFTWARE DEVELOPER Guidelines for O2: Yes; Document: [email or web address]\EPIC_Reference\Orders\ Respiratory Care Guidelines\CPG Oxygen 2022.pdf Oxygen Therapy - Maintain SpO2: 90%; *SENIOR PHP SOFTWARE DEVELOPER Guidelines for O2: Yes; Document: [email or web address]\EPIC_Reference\Order s\Respiratory Care Guidelines\CPG Oxygen 2022.pdf Respiratory Care Routine As Needed until discontinued starting 08/07/2024 [employer] Comment on above: As Needed until disc ontinued starting 08/07/2024 Patient Education [facility] Work Phone: Patient referral [facility] Work Phone: Phosphate [Mass/volu me] in Serum or Plasma Phosphorus Lab Routine Lab max of 3 days, Daily, for lab use only until discontinued starting 08/08/2024, 3 completed [facility] Comment on above: Lab max of 3 days, D aily, for lab use only until discontinued starting 08/08/2024, 3 completed End: 08-07-2024 Pulse oximetry, spot On current oxygen flow Pulse oximetry, spot On current oxygen flow Respiratory Care Routine Once for 1 Occurrences starting 08/07/2024 until 08/07/2024 [employer] Work Phone: Comment on above: Once for 1 Occurrenc es starting 08/07/2024 until 08/07/2024 Immunizations Immunization Date Immunization Notes Care Provider [facility] 03-08-2022 influenza virus vaccine, unspecified formulation Maia Wlof RN [facility] 12-30-2021 COVID-19, mRNA, LNP- S, PF, 100mcg/0.5mL Dose Dona Kincaid MD Work Phone: [facility] 06-23-2020 COVID-19, mRNA, LNP- S, PF, 100mcg/0.5mL Dose Dona Kincaid MD Work Phone: [facility] 06-12-2018 influenza, high dose seasonal, preservative-free Services [facility] Work Phone: [facility] 06-09-2018 influenza, high dose seasonal, preservative-free Services [facility] Work Phone: [facility] Payers Date Payer Category Payer Self-pay [id number] 2017 Medicaid [id number] 2016 Medicare [id number] 1959 Medicaid [id number] 1959 Medicare [id number] 1951 Unknown [id number] 2.16.84 0.1.524642.3.579.2.593 1951 Unknown [id number] 2.16.8 40.1.872619.3.579.2.1286 1951 Unknown [id number] 2.16.8 40.1.594365.3.579.2.1286 1951 Unknown [id number] 2.16. 840.1.909442.3.579.2.1286 1951 Unknown [id number] 2.16. 840.1.260658.3.579.2.1286 1951 Unknown [id number] 2.16. 840.1.350934.3.579.2.1285 1951 Unknown [id number] 2.16. 840.1.533647.3.579.2.1285 1951 Unknown [id number] 2.16. 840.1.323757.3.579.2.1285 1951 Unknown [id number] 2.16.8 40.1.962156.3.579.2.1285 1951 Unknown [id number] 2.16.8 40.1.508953.3.579.2.1285 1951 Unknown [id number] 2.16.8 40.1.224782.3.579.2.1285 1951 Unknown [id number] 2.16.8 40.1.326710.3.579.2.1285 1951 Unknown [id number] 2.16.8 40.1.586955.3.579.2.1285 1951 Unknown [id number] 2.16. 840.1.683159.3.579.2.1285 1951 Unknown [id number] 2.16. 840.1.342882.3.579.2.1285 1951 Unknown [id number] 2.16. 840.1.161222.3.579.2.1285 1951 Unknown [id number] 2.16. 840.1.605255.3.579.2.1285 1951 Unknown [id number] 2.16.8 40.1.035279.3.579.2.1285 1951 Unknown [id number] 2.16.8 40.1.626487.3.579.2.1285 1951 Unknown [id number] 2.16.8 40.1.566508.3.579.2.1285 1951 Unknown [id number] 2.16.8 40.1.093932.3.579.2.1286 1951 Unknown [id number] 2.16.8 40.1.145985.3.579.2.1286 1951 Unknown [id number] 2.16.8 40.1.893756.3.579.2.1286 1951 Unknown [id number] 2.16.8 40.1.178982.3.579.2.1286 1951 Unknown [id number] 2.16.8 40.1.314042.3.579.2.1286 Unknown [id number] 2.16.8 40.1.350997.3.579.2.531 Unknown [id number] 2.16.8 40.1.995637.3.579.2.531 Unknown [id number] 2.16.8 40.1.327530.3.579.2.531 Social History Date Type Detail Facility Start: 01-14-2024 End: 04-21-2024 Tobacco smoking status MOIS Ex-smoker (finding) [facility] Start: 1950 Sex Assigned At Female [facility] Start: [birth year]-02-1969 End: 04-01-2023 History of tobacco use Current smoker [facility] Start: [birth year]-02-1969 End: 04-01-2023 History of tobacco use Cigarette Smoker [facility] Start: 05-15-2020 End: 04-21-2024 Cigarettes smoked current (pack per day) - Reported 1 [facility] Start: 03-05-2022 End: 04-21-2024 Tobacco use and exposure Smokeless tobacco non-user [facility] Start: 04-21-2024 End: 08-06-2024 Alcoholic beverage intake Current non-drinker of alcohol (finding) [facility] Start: 05-15-2020 End: 04-21-2024 [facility] Utilities [facility] Has the [employer], or [employer] threatened to shut off services in your home in past 12Mo No [facility] How often to you hav e a drink containing alcohol? Never [facility] How many standard drinks containing alcohol do you have on a typical day? Patient does not drink [facility] Start: 1950 Sex assigned at Not on file P [facility] Start: 12-05-2014 Sex Female (finding) [facility] Tobacco smoking stat NHIS Tobacco smoking consumption unknown [facility] Goals Date Patient Goal Desired Activity /State Personal health goal Comment on above: Formatting of this n ote might be different from the original. Evaluation of progress towards goal: Pt will return to [facility] upon discharge. Personal health goal Comment on above: Formatting of this n ote might be different from the original. Evaluation of progress towards goal: Pt will return to [facility] upon discharge Personal health goal Comment on above: Formatting of this n ote might be different from the original. Evaluation of progress towards goal: RTN to [facility] Functional Status Date Assessment Result [facility] Clinical Notes 07-14-2023 to 08-10-2024 Kendra Cardenas RN - 08/10/2024 9:22 PM Oliva Cardenas RN - 08/10/2024 9:22 PM Lilliana Medina RN - 08/09/2024 3:00 PM Britney Puente RN - 08/08/2024 7:36 PM EDTDischarge Instructions Note Date & Type Note Facility 08-10-2024 Nurse Note Patient's two peripheral IV's removed prior to transport and belongings given to patient. Report was given to EMT personnel by financial underwriter. Patient transferred from facility bed to stretcher by two EMT personnel and two nurses. Patient's sister, David, was called and a voicemail left informing her that patient has been discharged and is en route to LTC facility. [facility] 08-10-2024 Nurse Note Patient's two peripheral IV's removed prior to transport and belongings given to patient. Report was given to EMT personnel by financial underwriter. Patient transferred from facility bed to stretcher by two EMT personnel and two nurses. Patient's sister, David, was called and a voicemail left informing her that patient has been discharged and is en route to LTC facility. Treatment was canceled by Dr Masterson due to patient being nauseated and vomiting. Membership Sales Manager called for zofran order and gave patient zofran per orders. Message left for her sister David about transfer Dr. Reich from [facility] service updated on pt and orders to transfer to progressive unit Returned to room from dialysis, pt sleeping but arouses easily to verbal stimuli denies pain or shortness of breath. Discussed transfer with Gen 6 charge nurse and will call report shortly. Discussed with Dr. Jimenes orders for iv insulin and dex 50 for elevated K level informed pt will be going to dialysis at 1:30 so he said these orders can be held documented in this encounter [facility] 08-10-2024 Procedure note Associated Ord er(s): HEMODIALYSIS INPATIENT Pt dialyzed for 3.5 hours today and had a net fluid removal of 1.0kg Pre wt 106.6kg Post 105.6kg One dose of albumin given for blood pressure support One dose of zofran given for nausea Access functioned well at ordered 350 pump speed [facility] 08-10-2024 Procedure note Associated Ord er(s): HEMODIALYSIS INPATIENT Pt dialyzed for 3.5 hours today and had a net fluid removal of 1.0kg Pre wt 106.6kg Post 105.6kg One dose of albumin given for blood pressure support One dose of zofran given for nausea Access functioned well at ordered 350 pump speed Associated Order(s): HEMODIALYSIS INPATIENT Pt completed 2 hour 10 minute treatment. Pt tolerated poorly. Pt's SBP decreased to 80's. Dr. Masterson at bedside and ordered albumin and midodrine. As I was putting in the order pt went bradycardic, in the 40's not responding, clammy. Gave [address] Masterson called and was told to stop treatment. He wanted rapid called and a stat EKG and labs. He also wanted pt to be evaluated for higher level of care. JOLEEN Abarca came and assessed pt, Dr. Vero Chawla came to also assess pt. Pt at that time was responding to questions, alert, but very lethargic. BP stable 138/59. He did not feel the need to transfer pt at that time. So pt was transferred back to her room. Pt's left AVF functioned well 350 bfr. Post BP 138/59 Post weight 107.5kg Fluid removal 1.2kg documented in this encounter [facility] 08-10-2024 Progress note Formatting of t his note might be different from the original. DISCHARGE PLANNING NOTE Md wright with discharge to [place] in [place]. kitchen worker spoke with [facility] and they can accept today. Rn updated and provided number to call report. [facility] dialysis updated. Tasked [facility] to send crf. S transport set up for 5 pm. Transfer cert faxed to PTN. Patient's sister notified and in agreement with the transition plans. - NAZ Pierce 08/10/24 12:08 PM [facility] 08-10-2024 Miscellaneous Notes DISCHARGE PLANNING NOTE Md wright with discharge to [place] in [place]. kitchen worker spoke with [facility] and they can accept today. Rn updated and provided number to call report. [facility] dialysis updated. Tasked [facility] to send crf. BLS transport set up for 5 pm. Transfer cert faxed to PTN. Patient's sister notified and in agreement with the transition plans. - NAZ Pierce 08/10/24 12:08 PM DISCHARGE PLANNING NOTE BLS via PTN scheduled for today 08/10/24 at 5 PM to [place]. Confirmed in [facility]. DISCHARGE PLANNING NOTE CRF sent to [facility] (P# ; F# ) DISCHARGE PLANNING NOTE Reviewed in Daily Transition rounds. [facility] [place] Goes to dialysis [facility] m[facility]. Transition plan remains for patient to return to [place] in [place]. Scial worker to follow and assist with appropriate transition plans. - NAZ Pierce 08/10/24 10:25 AM Problem: Pain Goal: Patient goal is pain score less than 4, able to rest, and participant in treatment plan as appropriate Description: INTERVENTIONS: 1. Encourage patient or legal u.s. representative to report early pain and ask for pain medicine when needed 2. Assess pain using appropriate pain scale and include the scale used when documenting 3. Administer analgesics based on type and severity of pain and evaluate response within appropriate time frame 4. Implement non-pharmacological measures as appropriate and evaluate response 5. Consider cultural and social influences on pain and pain management 6. Notify LIP if interventions ineffective or patient reports new pain 7. Monitor vital signs including pulse ox, end-tidal CO2 based on pain intervention 8. Reassess pain per policy 9. Teach patient or legal u.s. representative interventions for comforting Outcome: Progressing Note: Evaluation of progress towards goal: pt will have a pain score less than 4 during shift Problem: Infection Goal: Absence of infection during hospitalization Description: INTERVENTIONS 1. Assess and monitor for signs and symptoms of infection. 2. Monitor lab/diagnostic results. 3. Monitor all insertion sites i.e., indwelling lines, tubes and drains. 4. Monitor endotracheal (as able) and nasal secretions for changes in amount and color. 5. Administer medications as ordered. 6. Instruct and encourage patient and family to use good hand hygiene technique. 7. Identify and instruct patient/patient u.s. representative in use of appropriate isolation precautions for identified infection/symptoms. 8. Provide and discuss with patient/patient u.s. representative on educational MDRO sheet. 9. Encourage and monitor nutritional status daily and consult computer network support specialist if indicated. 10. Implement neutropenic guidelines as needed. Note: Evaluation of progress towards goal: pt will remain free from infection during shift Gastroenterology plan of care note: -hemoglobin is stable, no overt source of GI bleed. -continue to trend the hemoglobin and hematocrit and transfuse PRBC accordingly. -complex medical history with the patient's request to avoid endoscopic workup. -no endoscopic intervention recommendation from GI perspective. -patient could switch to DNR cc -The gastroenterology team will respectfully sign off please do not hesitate to reach out for any further recommendation all questions. Problem: Pain Goal: Patient goal is pain score less than 4, able to rest, and participant in treatment plan as appropriate Description: INTERVENTIONS: 1. Encourage patient or legal u.s. representative to report early pain and ask for pain medicine when needed 2. Assess pain using appropriate pain scale and include the scale used when documenting 3. Administer analgesics based on type and severity of pain and evaluate response within appropriate time frame 4. Implement non-pharmacological measures as appropriate and evaluate response 5. Consider cultural and social influences on pain and pain management 6. Notify LIP if interventions ineffective or patient reports new pain 7. Monitor vital signs including pulse ox, end-tidal CO2 based on pain intervention 8. Reassess pain per policy 9. Teach patient or legal u.s. representative interventions for comforting Outcome: Progressing Note: Evaluation of progress towards goal: Pt assessed for pain via 0-10 pain scale. Pt has PRN analgesics available. Will continue to reassessed Pt's pain appropriately. Problem: Safety Goal: Patient will be injury free during hospitalization Description: INTERVENTIONS: 1. Assess patient's risk for falls and implement fall prevention plan of care per policy 2. Provide and maintain a safe environment 3. Proper use of double Identifiers 4. Medication administration using the 5 rights 5. Hand hygiene 6. Specimens are labeled at the bedside 7. Instruct patient/ patient u.s. representative about use of safety devices 8. Include patient/ patient u.s. representative in decisions related to safety Outcome: Progressing Note: Evaluation of progress towards goal: Patient safety maintained. Hourly rounding and fall risk precautions maintained. Problem: Infection Goal: Absence of infection during hospitalization Description: INTERVENTIONS 1. Assess and monitor for signs and symptoms of infection. 2. Monitor lab/diagnostic results. 3. Monitor all insertion sites i.e., indwelling lines, tubes and drains. 4. Monitor endotracheal (as able) and nasal secretions for changes in amount and color. 5. Administer medications as ordered. 6. Instruct and encourage patient and family to use good hand hygiene technique. 7. Identify and instruct patient/patient u.s. representative in use of appropriate isolation precautions for identified infection/symptoms. 8. Provide and discuss with patient/patient u.s. representative on educational MDRO sheet. 9. Encourage and monitor nutritional status daily and consult computer network support specialist if indicated. 10. Implement neutropenic guidelines as needed. Outcome: Progressing Note: Evaluation of progress towards goal: Patient evaluated for S/S of infection. Patients vital signs, labs, and diagnostic results are being monitored each shift. Patient remains free from infection at this time. Problem: Knowledge Deficit Goal: Patient/patient u.s. representative demonstrates understanding of disease process, treatment plan, medications, and discharge instructions Description: INTERVENTIONS 1. Complete learning assessment and assess knowledge base 2. Provide teaching at level of understanding 3. Provide teaching via preferred learning method(s) Outcome: Progressing Note: Evaluation of progress towards goal: Patient glucose maintained within range per use of scheduled medications. Will continue to assess and treat as appropriate. Problem: Discharge Planning Goal: Discharge to post-acute care, other facility, or home with appropriate resources Description: Patient's goal is: LTC INTERVENTIONS 1. Conduct assessment to determine patient/family and health care team treatment goals, and need for post-acute services based on payer coverage, community resources, and patient preferences, and barriers to discharge 2. Coordinate with Social work, Care Navigation, and Utilization Review to arrange appropriate level of services according to patient's needs based on patient preference and payer coverage in collaboration with the physician and health care team 3. Address psychosocial, clinical, and financial barriers to discharge as identified in assessment in conjunction with the patient/family and health care team 4. Consult appropriate ancillary services (i.e.. PT/OT/ST, etc) as needed 5. Communicate with and update the patient/family, physician, and health care team regarding progress on the discharge plan 6. Identify discharge learning needs (meds, wound care, etc). 7. Arrange for needed discharge transportation as appropriate Outcome: Progressing Note: Evaluation of progress towards goal: Patient discharge criteria progressing. Will continue to assess for discharge needs. Problem: Glucose Imbalance Goal: Clinical indication of glucose balance is achieved Description: Patient's goal is: maintain glucose balance WDL INTERVENTIONS 1. Monitor blood glucose levels as ordered 2. Administer medications as ordered 3. Notify physician of ineffective treatment plan Outcome: Progressing Note: Evaluation of progress towards goal: Patient glucose maintained within range per use of scheduled medications. Will continue to assess and treat as appropriate. Problem: Potential for Compromised Skin Integrity Goal: Skin integrity is maintained or improved Description: Patient's goal is: maintain skin integrity and have no new breakdown for duration of stay. INTERVENTIONS 1. Perform initial skin assessment on admission and as needed 2. Turn patient every 2 hours and PRN 3. Relieve pressure to bony prominences 4. Avoid shearing 5. Keep skin clean and dry 6. Alternate a full bath with partial baths for elderly 7. Apply lotion/moisturizer on skin 8. Monitor patient's hygiene practices 9. Float heels 10. Collaborate with interdisciplinary team and initiate plans and interventions as needed Outcome: Progressing Note: Evaluation of progress towards goal: Patient skin integrity maintained. Will continue to assess and treat as appropriate. Problem: Urinary Incontinence Goal: Perineal skin integrity is maintained or improved Description: INTERVENTIONS 1. Assess genitourinary system, perineal skin, labs (urinalysis), and history of incontinence to include past management, aggravating, and alleviating factors 2. Keep skin clean and dry 3. Apply skin protectant 4. Develop skin care regimen 5. Provide privacy when changing patients incontinence device to maintain their dignity 6. Consider placing an indwelling catheter 7. Collaborate with interdisciplinary team and initiate plans and interventions as needed Outcome: Progressing Note: Evaluation of progress towards goal: Patient skin integrity maintained. Will continue to assess and treat as appropriate. Problem: Moderate - High Risk Fall Score Description: [place] Fall Score of =/> 25 or indicated by [facility] Assessment Goal: Patient should be free from fall Description: Interventions: 1. [place] to environment 2. Hourly rounds addressing the 4 P's (Pain, Positioning, Possessions, Potty) 3. Clear area of hazards (spills, clutter, electrical cords, unnecessary equipment) 4. Place equipment (bed & TV controls, call light, phone, urinal) within reach 5. Encourage patient to wear glasses and hearing aides as appropriate 6. Maintain bed in lowest position 7. Lock wheels on bed/wheelchair 8. Provide adequate lighting, including night light 9. Assess need for additional bedding, food/fluids, pain med's prior to sleep/routinely 10. Provide gripper slippers or personal non-skid footwear 11. Teach patient and patient u.s. representative to maintain environment for safety and engage in all aspects of fall prevention program 12. Remind patient to call for help before getting out of bed 13. Initiate bed/chair/exit alarms supportive devices as appropriate, (chair wedge, no-skid floor mat, raised edge mattress, hip protectors) 14. Locate patient bed assignment for optimal visualization 15. Evaluate and identify Safe Patient Handling Equipment needs 16. Provide supervision when out of bed or chair 17. Utilize gait belt as needed to assist with ambulation 18. Place adaptive equipment (cane, walker) within reach 19. Request patient u.s. representative bring adaptive equipment/mobility aids from home or obtain and provide as needed 20. Consult pharmacy regarding effects of med's affecting mobility, cognition, and alternatives 21. Obtain physician order for PT if risk factors associated with mobility are present 22. Obtain physician order for OT as appropriate 23. Utilize diversional activities 24. Educate patient and patient u.s. representative how to maintain a safe environment during visitation times (notify nurse prior to leaving bedside) 25. Consider appropriateness of medical or non-medical pathologist 26. Set up voiding schedule as appropriate (every 2 hours) Outcome: Progressing Note: Evaluation of progress towards goal: Pt will be free from falls this admission. High risk Fall scale interventions in place. DISCHARGE PLANNING NOTE POA paperwork and DNRCC faxed from [facility] and put on chart. Pt will return to [facility].Adela Perez RN 08/09/24 1142 Referral To Community Referrals / Resources Provided Denies needs Services Requested Patient expects to be discharged to: RTN to [facility] Does the patient wish to have family/friend/caregiver involved in their discharge planning? No, the patient does not wish to have family/friend/caregiver involved in their discharge planning Discharge Disposition Skilled Return Skilled Return Name [facility] Does the patient need discharge transportation arranged? Yes Transportation Arranged Ambulance Mobility issues discussed with transportation provider Yes Patient choice offered Yes List Provided Patient declined Patient Declined Active with Provider Financial Disclosure Provided for In-Network Referral Yes DISCHARGE PLANNING NOTE Pt will rtn to [facility] at [place]. She is LTC. Pt also goes to dialysis at [facility]. CN tasked for referral to be sent to them as well. Per [facility], pts POA is her sister Isreal Sheridan, . I attempted to call her and got VM. Ethel also asked SNF to fax us the POA paperwork if they have it. Pt is saying she is not her POA anymore but pt is intermittently confused. Adela Perez RN DISCHARGE PLANNING NOTE Referral sent to [facility] (P# [phone] ; F# [phone]) Problem: Pain Goal: Patient goal is pain score less than 4, able to rest, and participant in treatment plan as appropriate Description: INTERVENTIONS: 1. Encourage patient or legal u.s. representative to report early pain and ask for pain medicine when needed 2. Assess pain using appropriate pain scale and include the scale used when documenting 3. Administer analgesics based on type and severity of pain and evaluate response within appropriate time frame 4. Implement non-pharmacological measures as appropriate and evaluate response 5. Consider cultural and social influences on pain and pain management 6. Notify LIP if interventions ineffective or patient reports new pain 7. Monitor vital signs including pulse ox, end-tidal CO2 based on pain intervention 8. Reassess pain per policy 9. Teach patient or legal u.s. representative interventions for comforting Outcome: Progressing Note: Evaluation of progress towards goal: Pt assessed for pain via 0-10 pain scale. Pt has PRN analgesics available. Will continue to reassessed Pt's pain appropriately. Problem: Safety Goal: Patient will be injury free during hospitalization Description: INTERVENTIONS: 1. Assess patient's risk for falls and implement fall prevention plan of care per policy 2. Provide and maintain a safe environment 3. Proper use of double Identifiers 4. Medication administration using the 5 rights 5. Hand hygiene 6. Specimens are labeled at the bedside 7. Instruct patient/ patient u.s. representative about use of safety devices 8. Include patient/ patient u.s. representative in decisions related to safety Outcome: Progressing Note: Evaluation of progress towards goal: Patient safety maintained. Hourly rounding and fall risk precautions maintained. Problem: Infection Goal: Absence of infection during hospitalization Description: INTERVENTIONS 1. Assess and monitor for signs and symptoms of infection. 2. Monitor lab/diagnostic results. 3. Monitor all insertion sites i.e., indwelling lines, tubes and drains. 4. Monitor endotracheal (as able) and nasal secretions for changes in amount and color. 5. Administer medications as ordered. 6. Instruct and encourage patient and family to use good hand hygiene technique. 7. Identify and instruct patient/patient u.s. representative in use of appropriate isolation precautions for identified infection/symptoms. 8. Provide and discuss with patient/patient u.s. representative on educational MDRO sheet. 9. Encourage and monitor nutritional status daily and consult computer network support specialist if indicated. 10. Implement neutropenic guidelines as needed. Outcome: Progressing Note: Evaluation of progress towards goal: Patient evaluated for S/S of infection. Patients vital signs, labs, and diagnostic results are being monitored each shift. Problem: Knowledge Deficit Goal: Patient/patient u.s. representative demonstrates understanding of disease process, treatment plan, medications, and discharge instructions Description: INTERVENTIONS 1. Complete learning assessment and assess knowledge base 2. Provide teaching at level of understanding 3. Provide teaching via preferred learning method(s) Outcome: Progressing Note: Evaluation of progress towards goal: Patient demonstrates understanding of current plan of care. Will continue to assess education needs. Problem: Discharge Planning Goal: Discharge to post-acute care, other facility, or home with appropriate resources Description: Patient's goal is: Referral sent to [facility] INTERVENTIONS 1. Conduct assessment to determine patient/family and health care team treatment goals, and need for post-acute services based on payer coverage, community resources, and patient preferences, and barriers to discharge 2. Coordinate with Social work, Care Navigation, and Utilization Review to arrange appropriate level of services according to patient's needs based on patient preference and payer coverage in collaboration with the physician and health care team 3. Address psychosocial, clinical, and financial barriers to discharge as identified in assessment in conjunction with the patient/family and health care team 4. Consult appropriate ancillary services (i.e.. PT/OT/ST, etc) as needed 5. Communicate with and update the patient/family, physician, and health care team regarding progress on the discharge plan 6. Identify discharge learning needs (meds, wound care, etc). 7. Arrange for needed discharge transportation as appropriate Outcome: Progressing Note: Evaluation of progress towards goal: Patient discharge criteria progressing. Will continue to assess for discharge needs. Problem: Glucose Imbalance Goal: Clinical indication of glucose balance is achieved Description: Patient's goal is: maintain glucose balance WDL INTERVENTIONS 1. Monitor blood glucose levels as ordered 2. Administer medications as ordered 3. Notify physician of ineffective treatment plan Outcome: Progressing Note: Evaluation of progress towards goal: Patient glucose maintained within range per use of scheduled medications. Will continue to assess and treat as appropriate. Problem: Potential for Compromised Skin Integrity Goal: Skin integrity is maintained or improved Description: Patient's goal is: maintain skin integrity and have no new breakdown for duration of stay INTERVENTIONS 1. Perform initial skin assessment on admission and as needed 2. Turn patient every 2 hours and PRN 3. Relieve pressure to bony prominences 4. Avoid shearing 5. Keep skin clean and dry 6. Alternate a full bath with partial baths for elderly 7. Apply lotion/moisturizer on skin 8. Monitor patient's hygiene practices 9. Float heels 10. Collaborate with interdisciplinary team and initiate plans and interventions as needed Outcome: Progressing Note: Evaluation of progress towards goal: Patient skin integrity maintained. Will continue to assess and treat as appropriate. Problem: Urinary Incontinence Goal: Perineal skin integrity is maintained or improved Description: INTERVENTIONS 1. Assess genitourinary system, perineal skin, labs (urinalysis), and history of incontinence to include past management, aggravating, and alleviating factors 2. Keep skin clean and dry 3. Apply skin protectant 4. Develop skin care regimen 5. Provide privacy when changing patients incontinence device to maintain their dignity 6. Consider placing an indwelling catheter 7. Collaborate with interdisciplinary team and initiate plans and interventions as needed Outcome: Progressing Note: Evaluation of progress towards goal: Patient skin integrity maintained. Will continue to assess and treat as appropriate. Problem: Moderate - High Risk Fall Score Description: [place] Fall Score of =/> 25 or indicated by [facility] Assessment Goal: Patient should be free from fall Description: Interventions: 1. [place] to environment 2. Hourly rounds addressing the 4 P's (Pain, Positioning, Possessions, Potty) 3. Clear area of hazards (spills, clutter, electrical cords, unnecessary equipment) 4. Place equipment (bed & TV controls, call light, phone, urinal) within reach 5. Encourage patient to wear glasses and hearing aides as appropriate 6. Maintain bed in lowest position 7. Lock wheels on bed/wheelchair 8. Provide adequate lighting, including night light 9. Assess need for additional bedding, food/fluids, pain med's prior to sleep/routinely 10. Provide gripper slippers or personal non-skid footwear 11. Teach patient and patient u.s. representative to maintain environment for safety and engage in all aspects of fall prevention program 12. Remind patient to call for help before getting out of bed 13. Initiate bed/chair/exit alarms supportive devices as appropriate, (chair wedge, no-skid floor mat, raised edge mattress, hip protectors) 14. Locate patient bed assignment for optimal visualization 15. Evaluate and identify Safe Patient Handling Equipment needs 16. Provide supervision when out of bed or chair 17. Utilize gait belt as needed to assist with ambulation 18. Place adaptive equipment (cane, walker) within reach 19. Request patient u.s. representative bring adaptive equipment/mobility aids from home or obtain and provide as needed 20. Consult pharmacy regarding effects of med's affecting mobility, cognition, and alternatives 21. Obtain physician order for PT if risk factors associated with mobility are present 22. Obtain physician order for OT as appropriate 23. Utilize diversional activities 24. Educate patient and patient u.s. representative how to maintain a safe environment during visitation times (notify nurse prior to leaving bedside) 25. Consider appropriateness of medical or non-medical pathologist 26. Set up voiding schedule as appropriate (every 2 hours) Outcome: Progressing Note: Evaluation of progress towards goal: Pt will be free from falls this admission. High risk Fall scale interventions in place. Intensive care was asked to evaluate the patient by Nephrology According to nursing staff, the patient became bradycardic, hypotensive, and extremely confused during hemodialysis. Upon our evaluation, the patient was awake, oriented to person, place, and time, sleepy but responsive to questions and following commands. Vital signs were stable, with adequate blood pressure and oxygen saturation >90% on 3L via nasal cannula. Arterial blood gas (ABG) did not reveal any evidence of CO? retention. Although the patient does not currently meet criteria for ICU-level care, we recommended transfer to a higher level of care for closer monitoring Patient code status DNR cc Patient is being transferred to [facility] which I was not notified about. According to nurse, the patient had a rapid response called due to hypotension during dialysis. Nephrology presented bedside and evaluated the patient along with warehouse sorter. A joint decision was made to send the patient to [facility]. This information was elicited from the nursing staff as I was not notified by the rapid team or anyone else. The patient's code status still remains DNR CC as of my knowledge. Problem: Pain Goal: Patient goal is pain score less than 4, able to rest, and participant in treatment plan as appropriate Description: INTERVENTIONS: 1. Encourage patient or legal u.s. representative to report early pain and ask for pain medicine when needed 2. Assess pain using appropriate pain scale and include the scale used when documenting 3. Administer analgesics based on type and severity of pain and evaluate response within appropriate time frame 4. Implement non-pharmacological measures as appropriate and evaluate response 5. Consider cultural and social influences on pain and pain management 6. Notify LIP if interventions ineffective or patient reports new pain 7. Monitor vital signs including pulse ox, end-tidal CO2 based on pain intervention 8. Reassess pain per policy 9. Teach patient or legal u.s. representative interventions for comforting Outcome: Progressing Note: Evaluation of progress towards goal: no c/o discomfort Problem: Safety Goal: Patient will be injury free during hospitalization Description: INTERVENTIONS: 1. Assess patient's risk for falls and implement fall prevention plan of care per policy 2. Provide and maintain a safe environment 3. Proper use of double Identifiers 4. Medication administration using the 5 rights 5. Hand hygiene 6. Specimens are labeled at the bedside 7. Instruct patient/ patient u.s. representative about use of safety devices 8. Include patient/ patient u.s. representative in decisions related to safety Outcome: Progressing Note: Evaluation of progress towards goal: safety measures maintained no injuries Problem: Infection Goal: Absence of infection during hospitalization Description: INTERVENTIONS 1. Assess and monitor for signs and symptoms of infection. 2. Monitor lab/diagnostic results. 3. Monitor all insertion sites i.e., indwelling lines, tubes and drains. 4. Monitor endotracheal (as able) and nasal secretions for changes in amount and color. 5. Administer medications as ordered. 6. Instruct and encourage patient and family to use good hand hygiene technique. 7. Identify and instruct patient/patient u.s. representative in use of appropriate isolation precautions for identified infection/symptoms. 8. Provide and discuss with patient/patient u.s. representative on educational MDRO sheet. 9. Encourage and monitor nutritional status daily and consult computer network support specialist if indicated. 10. Implement neutropenic guidelines as needed. Outcome: Progressing Note: Evaluation of progress towards goal: no s/s infection Problem: Knowledge Deficit Goal: Patient/patient u.s. representative demonstrates understanding of disease process, treatment plan, medications, and discharge instructions Description: INTERVENTIONS 1. Complete learning assessment and assess knowledge base 2. Provide teaching at level of understanding 3. Provide teaching via preferred learning method(s) Outcome: Progressing Note: Evaluation of progress towards goal: all care explained Problem: Discharge Planning Goal: Discharge to post-acute care, other facility, or home with appropriate resources Description: Patient's goal is: INTERVENTIONS 1. Conduct assessment to determine patient/family and health care team treatment goals, and need for post-acute services based on payer coverage, community resources, and patient preferences, and barriers to discharge 2. Coordinate with Social work, Care Navigation, and Utilization Review to arrange appropriate level of services according to patient's needs based on patient preference and payer coverage in collaboration with the physician and health care team 3. Address psychosocial, clinical, and financial barriers to discharge as identified in assessment in conjunction with the patient/family and health care team 4. Consult appropriate ancillary services (i.e.. PT/OT/ST, etc) as needed 5. Communicate with and update the patient/family, physician, and health care team regarding progress on the discharge plan 6. Identify discharge learning needs (meds, wound care, etc). 7. Arrange for needed discharge transportation as appropriate Outcome: Progressing Note: Evaluation of progress towards goal: plans to return to snf at discharge DISCHARGE PLANNING NOTE [facility] (P# ; F# ) Update regarding code status: Spoke to patient's sister David, who is the POA at [phone]. Pt's sister states that she doesn't want any extra-ordinary measures done for her sister per her wishes and her sister's wishes was to be DNR/CC so she wants to change her code status from FULL CODE to DNR/CC. I have updated the change in epic as well. We will also get Palliative to help us with goals of care at this time. MARTIN GARBER MD 08/08/2024 Physical Therapy PT Type of Visit: Discharge from Therapy (Pt is from [facility] with use of [facility] lift for transfers and dependent for all ADL's. No skilled PT needs and per CN does not require prior authorization to return to ECF. Will sign off.) Occupational Therapy OT Type of Visit: Discharge from Therapy (pt is from ECF, adrian lift to wheelchair and dependent for all ADLs, will sign off as no acute needs at this time. Please contact financial underwriter with any questions.) Problem: Pain Goal: Patient goal is pain score less than 4, able to rest, and participant in treatment plan as appropriate Description: INTERVENTIONS: 1. Encourage patient or legal u.s. representative to report early pain and ask for pain medicine when needed 2. Assess pain using appropriate pain scale and include the scale used when documenting 3. Administer analgesics based on type and severity of pain and evaluate response within appropriate time frame 4. Implement non-pharmacological measures as appropriate and evaluate response 5. Consider cultural and social influences on pain and pain management 6. Notify LIP if interventions ineffective or patient reports new pain 7. Monitor vital signs including pulse ox, end-tidal CO2 based on pain intervention 8. Reassess pain per policy 9. Teach patient or legal u.s. representative interventions for comforting Outcome: Progressing Note: Evaluation of progress towards goal: Patient's pain is assessed and documented with appropriate pain scale. Patient's pain is relieved with PRN medications. Problem: Safety Goal: Patient will be injury free during hospitalization Description: INTERVENTIONS: 1. Assess patient's risk for falls and implement fall prevention plan of care per policy 2. Provide and maintain a safe environment 3. Proper use of double Identifiers 4. Medication administration using the 5 rights 5. Hand hygiene 6. Specimens are labeled at the bedside 7. Instruct patient/ patient u.s. representative about use of safety devices 8. Include patient/ patient u.s. representative in decisions related to safety Outcome: Progressing Note: Evaluation of progress towards goal: Pt remains free from falls and injury, hand hygiene in and out of room, specimens labeled at bedside Problem: Infection Goal: Absence of infection during hospitalization Description: INTERVENTIONS 1. Assess and monitor for signs and symptoms of infection. 2. Monitor lab/diagnostic results. 3. Monitor all insertion sites i.e., indwelling lines, tubes and drains. 4. Monitor endotracheal (as able) and nasal secretions for changes in amount and color. 5. Administer medications as ordered. 6. Instruct and encourage patient and family to use good hand hygiene technique. 7. Identify and instruct patient/patient u.s. representative in use of appropriate isolation precautions for identified infection/symptoms. 8. Provide and discuss with patient/patient u.s. representative on educational MDRO sheet. 9. Encourage and monitor nutritional status daily and consult computer network support specialist if indicated. 10. Implement neutropenic guidelines as needed. Outcome: Progressing Note: Evaluation of progress towards goal: Pt vitals and labs monitored, proper standard precautions for infection prevention, iv antibiotics, all insertionl sites monitored for infection Problem: Moderate - High Risk Fall Score Description: [place] Fall Score of =/> 25 or indicated by [facility] Assessment Goal: Patient should be free from fall Description: Interventions: 1. [place] to environment 2. Hourly rounds addressing the 4 P's (Pain, Positioning, Possessions, Potty) 3. Clear area of hazards (spills, clutter, electrical cords, unnecessary equipment) 4. Place equipment (bed & TV controls, call light, phone, urinal) within reach 5. Encourage patient to wear glasses and hearing aides as appropriate 6. Maintain bed in lowest position 7. Lock wheels on bed/wheelchair 8. Provide adequate lighting, including night light 9. Assess need for additional bedding, food/fluids, pain med's prior to sleep/routinely 10. Provide gripper slippers or personal non-skid footwear 11. Teach patient and patient u.s. representative to maintain environment for safety and engage in all aspects of fall prevention program 12. Remind patient to call for help before getting out of bed 13. Initiate bed/chair/exit alarms supportive devices as appropriate, (chair wedge, no-skid floor mat, raised edge mattress, hip protectors) 14. Locate patient bed assignment for optimal visualization 15. Evaluate and identify Safe Patient Handling Equipment needs 16. Provide supervision when out of bed or chair 17. Utilize gait belt as needed to assist with ambulation 18. Place adaptive equipment (cane, walker) within reach 19. Request patient u.s. representative bring adaptive equipment/mobility aids from home or obtain and provide as needed 20. Consult pharmacy regarding effects of med's affecting mobility, cognition, and alternatives 21. Obtain physician order for PT if risk factors associated with mobility are present 22. Obtain physician order for OT as appropriate 23. Utilize diversional activities 24. Educate patient and patient u.s. representative how to maintain a safe environment during visitation times (notify nurse prior to leaving bedside) 25. Consider appropriateness of medical or non-medical pathologist 26. Set up voiding schedule as appropriate (every 2 hours) Outcome: Progressing Note: Evaluation of progress towards goal: Patient remains free from falls and injuries, 5 P's addressed, bed is in a locked position and has call light within reach. documented in this encounter [facility] 08-10-2024 Progress note Formatting of t his note might be different from the original. DISCHARGE PLANNING NOTE BLS via PTN scheduled for today 08/10/24 at 5 PM to [place]. Confirmed in [place]. [facility] 08-10-2024 Progress note Formatting of t his note might be different from the original. DISCHARGE PLANNING NOTE CRF sent to [facility] (P# ; F# ) [facility] 08-10-2024 Hospital course Narrative Images from the original note were not included. IMS-2 DISCHARGE SUMMARY Patient Name: Janay Schilling : 1950 PCP: DEENA PERKINS MD DATE OF ADMISSION: 08/07/2024 DATE OF DISCHARGE: 08/10/2024 PRIMARY DISCHARGE DIAGNOSIS: Dementia Black tarry stool ESRD HD SECONDARY DISCHARGE DIAGNOSIS: HTN HLD Diastolic HF T2D Hypothyroidism CONSULTANTS: Consulting Providers Provider Service Specialty Mike Masterson MD -- Nephrology Since Supportive Care And Symptom Relief -- Hospice & Palliative Medicine PROCEDURES: None HPI/HOSPITAL COURSE SUMMARY: Janay Schilling is a 74 y.o. female with a PMH significant for ESRD on dialysis Tuesday, and Tuesday via left upper extremity AV fistula, hypertension, hyperlipidemia, diastolic heart failure, and type 2 diabetes who presented with melena over the last 24 hours and of breath over the last 3 days. Patient also had some chest pain that had resolved by the time she was transferred here to [facility]. Patient also reports she had some dizziness on arrival to outside ED. Patient was transferred from [facility] to [facility] for GI eval. Patient outside ED found the have a hemoglobin of 5.9, and had positive fecal occult blood. She was given 1 unit of blood outside ED. No acute findings on CT abdomen/pelvis. Patient was hemodynamically stable saturating well on room air in the ED. Patient appeared to be altered upon evaluation. She was alert and oriented to self but not to time and place. Per chart review, patient's sister is her POA. Palliative Medicine was consulted for further clarification. POBrenton was contacted multiple x2 establish code status for the patient. She stated that the patient has been declining in her mentation and has dementia. Per palliative Care, patient does not have capacity to make her own medical decision. Марина ARENAS, does not have dementia and appears to know patient's wishes and has a best interest in mind. Gastroenterology was consulted in the ED, due to no further GI bleed and hemoglobin being stable no endoscopic evaluation was performed in the hospital. DEEPA was in agreement and did not want colonoscopy to be done now, and we will consider if her hemodynamics worsened. During the hospital stay patient received dialysis. Patient was deemed fit for discharge from [facility] on 08/10/24. DISCHARGE INSTRUCTIONS: Regular diet. No intense physical activity until proven outpatient follow-up. Take all medications as directed. Follow up with primary care provider. Follow up with palliative. In case of emergency or recurrence of symptoms, contact primary care provider and return to [facility] Emergency Department as soon as possible Disposition: SNF Condition: good Code Status: DNR cc Future Appointments Date Time Provider Department Center 08/10/2024 12:00 PM [facility] Physical Exam: BP 134/48 Pulse 71 Temp 36.5 C (97.7 F) (Oral) Resp 17 Ht 162.6 cm (5' 4 ) Wt 104.6 kg (230 lb 9.6 oz) SpO2 100% BMI 39.58 kg/m General appearance: alert, oriented, cooperative, in no acute distress Skin: warm and dry to touch HEENT: atraumatic, normocephalic, EOM's intact, sclera non icteric, no erythema, no exudate Neck: no JVD, no carotid bruit, neck supple, no lymphadenopathy Back: no CVA tenderness Lungs: clear to ausculation bilaterally, no use of accessory muscles Heart: RRR, normal S1 and S2, no murmurs, no gallops Abdomen: soft, non-distended, non-tender, bowel sounds normal Extremities: no edema Neurologic: no focal motor or sensory deficits noted Psychiatric: appropriate affect Intake/output: Net IO Since Admission: -740 mL [08/10/24 1125] Labs: Results from last 7 days Lab Units 08/10/24 0524 08/09/24 1704 08/09/24 0608/08/24 1902 WBC X10E9/L 5.4 -- 5.4 6.0 HEMOGLOBIN g/dL 7.3* 8.0* 7.8* 7.6* HEMATOCRIT % 22.0* 23.9* 23.7* 23.0* PLATELETS X10E9/L 118* -- 126* 124* Results from last 7 days Lab Units 08/07/24 0448 APTT sec 25* INR 0.9 Results from last 7 days Lab Units 08/10/24 0524 08/09/24 0600 08/08/24 1902 08/08/24 0929 08/08/24 0421 SODIUM mmol/L 135 137 136 -- 137 POTASSIUM mmol/L 5.1* 4.9 4.4 < > 5.5* CHLORIDE mmol/L 99 101 100 -- 101 CO2 mmol/L 26 27 26 -- 27 BUN mg/dL 58* 45* 37* -- 57* CREATININE mg/dL 4.91* 3.99* 3.43* -- 4.94* CALCIUM mg/dL 8.5 8.6 8.3* -- 8.5 PHOSPHORUS mg/dL 4.6 3.9 -- -- 4.0 MAGNESIUM mg/dL 1.9 1.9 -- -- 2.0 < > = values in this interval not displayed. Results from last 7 days Lab Units 08/06/24 2130 ALBUMIN g/dL 3.0* TOTAL PROTEIN g/dL 6.0 ALT U/L 15 AST U/L 16 ALK PHOS U/L 81 Results from last 7 days Lab Units 08/10/24 0830 08/10/24 0524 08/09/24 2128 BEDSIDE GLUCOSE mg/dL 114* -- 185* GLUCOSE mg/dL -- 106* -- Lab Results Component Value Date HGBA1C 8.1 (H) 04/21/2024 Results from last 7 days Lab Units 08/06/24 2130 BNP pg/mL 166* Results from last 7 days Lab Units 08/08/24 0004 VITAMIN B 12 pg/mL 392 FOLATE ng/mL 5.4* FERRITIN ng/mL 504* IRON ug/dL 88 TIBC-CALC ONLY DO NOT ORDER ug/dL 242* IRON SATURATION % SATURATION 36 Lab Results Component Value Date WBCU 6 (H) 07/17/2019 SPECIFICGRA 1.025 04/20/2024 LEUKOCYTE Trace (A) 04/20/2024 NITRITEN Negative 04/20/2024 PHNUR 6.5 04/20/2024 PROTEINNUR >=300 (A) 04/20/2024 KETONESNUR Negative 04/20/2024 UROBILINOGEN 0.2 04/20/2024 BLOODHGBNU Trace (A) 04/20/2024 Imaging No results found. Last Echo Echo complete W/ contrast Result Date: 04/23/2024 The left ventricle appears normal in size. Severely increased LV wall thickness No obvious wall motion abnormality noted Normal LV systolic function, ejection fraction 55-60% Grade 1 LV diastolic dysfunction The right ventricle appears normal in size and function The left and right atrium appears normal in size The aortic valve was not well visualized no obvious, regurgitation or stenosis The mitral valve leaflet appears thickened, posterior mitral valve leaflet mobility is severely reduced As per Doppler study mean gradient 4 mm of mercury suggestive of mild mitral stenosis per the left atrium does not appear enlarged There was trace mitral regurgitation Trace tricuspid regurgitation no stenosis Right ventricular systolic pressure 27 mm of mercury Trace pulmonary regurgitation no stenosis Normal aortic root dimension The IVC appears normal in size, normal respiratory variation No significant pericardial effusion seen Cultures Microbiology Results No results found for the last 168 hours. DISCHARGE MEDICATIONS: Your medication list CONTINUE taking these medications Instructions Last Dose Given Next Dose Due acetaminophen 500 mg tablet Commonly known as: TYLENOL EXTRA STRENGTH albuterol 90 mcg/actuation inhaler Commonly known as: PROVENTIL HFA;VENTOLIN HFA amLODIPine 5 mg tablet Commonly known as: NORVASC aspirin 81 mg Take 1 tablet (81 mg total) by mouth in the morning. atorvastatin 40 mg tablet Commonly known as: LIPITOR BREO ELLIPTA 100-25 mcg/dose blister with device Generic drug: fluticasone furoate-vilanteroL bumetanide 0.5 mg tablet Commonly known as: BUMEX Take 1 tablet (0.5 mg total) by mouth daily. carvediloL 6.25 mg tablet Commonly known as: COREG Take 1 tablet (6.25 mg total) by mouth once daily at bedtime. cetirizine 10 mg tablet Commonly known as: ZyrTEC DIALYVITE 800 WITH ZINC 15 0.8-15 mg tablet Generic drug: vitamin B fvcyhj-Q-HA-zinc cit docusate sodium 100 mg capsule Commonly known as: COLACE ergocalciferol 1,250 mcg (50,000 unit) capsule Commonly known as: DRISDOL guaiFENesin 600 mg tablet extended release 12hr Commonly known as: MUCINEX isosorbide mononitrate 30 mg 24 hr tablet Commonly known as: IMDUR Take 1 tablet (30 mg total) by mouth daily. LANTUS SOLOSTAR U-100 INSULIN 100 unit/mL (3 mL) insulin pen Generic drug: insulin glargine levothyroxine 200 MCG tablet Commonly known as: SYNTHROID, LEVOTHROID Take 1 tablet (200 mcg total) by mouth in the morning. magnesium hydroxide 400 mg/5 mL suspension midodrine 10 mg tablet Commonly known as: PROAMATINE MIRALAX 17 gram/dose powder Generic drug: polyethylene glycol SENNA WITH DOCUSATE SODIUM 8.6-50 mg Generic drug: sennosides-docusate sodium sertraline 100 mg tablet Commonly known as: ZOLOFT sevelamer 800 mg tablet Commonly known as: RENVELA TRULICITY 3 mg/0.5 mL pen injector Generic drug: dulaglutide XPHOZAH 20 mg tablet Generic drug: tenapanor ASK your doctor about these medications Instructions Last Dose Given Next Dose Due losartan 100 mg tablet Commonly known as: COZAAR Take 1 tablet (100 mg total) by mouth in the morning. Matt Jimenes MD PGY-1 Internal Medicine Cosigned by Martin Garber MD at 08/10/2024 2:51 PM EDT Associated attestation - Martin Garber MD - 08/10/2024 2:51 PM EDT Attending Note I have seen and discussed the patient during rounds. I performed, participated and was present during the critical/flores portions of the service. I was directly involved in the management and treatment plan of the patient. I reviewed the resident's note and agree with the findings and plan. Electronically signed by: Martin Garber MD This note is created with the assistance of a speech-recognition program. While intending to generate a document that actually reflects the content of the visit, no guarantees can be provided that every mistake has been identified and corrected by editing. documented in this encounter [facility] 08-10-2024 Hospital Discharg e instructions Amrik Jimenes MD - 08/10/2024 11:25 AM EDT You are being discharged SNF. Follow-up with hospice. It was a pleasure to take part in your care during your recent hospitalization. Please call your doctor or visit the ED if you notice fever, chills, chest pain, shortness of breath, cough, abdominal pain, nausea, vomiting, and diarrhea We are making a few changes to your medications. None Please follow up as listed below Please follow up with your PCP for further care and medical management [facility] History of Presen t illness Narrative Images from the original note were not included. [facility] Jacques Mccall, EUGENIA Nephrology Progress Note Patient Name: Janay Schilling : 1950 Date of Service: 08/10/24 PCP: DEENA PERKINS MD Attending Physician: Martin Garber MD Admission Date: 08/07/2024 Length of stay: LOS: 3 days Chief complaint No chief complaint on file. Reason for Consult: ESRD on HD Assessment and Plan 74-year-old female with a past medical history significant for end-stage renal disease on hemodialysis (//Sat via left upper extremity AV fistula), hypertension, type 2 diabetes mellitus, diastolic heart failure, hypothyroidism, hyperlipidemia, and prior stroke, presented with melena and progressive dyspnea for 3 days. Initial hemoglobin was 5.9 g/dL, prompting transfer from an outside facility. She also reported dizziness and a transient episode of chest discomfort. No hematemesis, abdominal pain, nausea, vomiting, or NSAID use. Chronic aspirin use noted. She was hemodynamically stable on arrival and received 2 units of PRBCs with improvement of Hgb to 8.9 g/dL. Labs showed normocytic anemia, INR 0.9, normal aPTT, and no leukocytosis. CT abdomen/pelvis revealed atrophic kidneys with cysts and severe aortic calcification. BNP 166, chest X-ray and EKG unremarkable. Nephrology was consulted for ongoing dialysis Assessment End-stage renal disease on hemodialysis - TTS schedule Hyperkalemia Volume status: No concern for volume Hypertension: Stable Hemodynamics: Stable Anemia of ESRD CKD MBD renal osteodystrophy GI Bleeding ? GI on board History of CHF History of DM History of Hypothyroidism Obesity / CATARINO Plan Plan for HD today - Will plan for another session tomorrow to keep her on TTS schedule CHINA Q weekly - No need for Iron Tx - Iron stores areadequate Phos level WNL, Pt not eating, will dc Phos binders for now HD diet, 1400 ml/24 hr fluid restriction Dose all meds to GFR < 10 Thank you for this consultation, we will follow along with you regarding care of this patient while the patient is here in the hospital, please call if you have any questions or concerns. MIKE MASTERSON MD on 08/10/2024 at 10:41 AM [facility]. Ph: [phone] Subjecive Pt remains tired and fatigued No acute distress Mild nausea on HD Tolerating HD well Past Medical History: Diagnosis Date Anemia, unspecified Cellulitis Cellulitis, unspecified CHF (congestive heart failure) ([facility]) Chronic kidney disease, unspecified Depression Diabetes mellitus type 2, controlled ([facility]) Difficulty walking DM (diabetes mellitus) ([facility]) MALHOTRA (dyspnea on exertion) Heart failure, systolic ([facility]) Hyperlipidemia Hypertension Hypothyroidism Infectious viral hepatitis Muscle weakness (generalized) Obesity Obstructive chronic bronchitis without exacerbation ([facility]) Post-COVID syndrome resolved Stroke ([facility]) Past Surgical History: Procedure Laterality Date APPENDECTOMY CHOLECYSTECTOMY TONSILLECTOMY Family History Problem Relation Age of Onset Heart disease Mother Kidney disease Mother Alzheimer's disease Sister Hypertension Sister Kidney disease Brother Breast cancer Neg Hx Social History Socioeconomic History Marital status: Single Spouse name: Not on file Number of children: Not on file Years of education: Not on file Highest education level: Not on file Occupational History Not on file Tobacco Use Smoking status: Former Current packs/day: 0.00 Average packs/day: 1 pack/day for 53.9 years (53.9 ttl pk-yrs) Types: Cigarettes Start date: 1969 Quit date: 04/01/2023 Years since quittin.3 Smokeless tobacco: Never Vaping Use Vaping status: Never Used Substance and Sexual Activity Alcohol use: No Drug use: No Sexual activity: Defer Other Topics Concern Caffeine Use Yes Social History Narrative Not on file Social Drivers of Health Financial Resource Strain: Not on file Food Insecurity: Patient Unable To Answer (08/08/2024) Hunger Screening Food Insecurity - Worry: Patient unable to answer Food Insecurity - Inability: Patient unable to answer Transportation Needs: Patient Unable To Answer (08/08/2024) PRAPARE - Transportation Lack of Transportation (Medical): Patient unable to answer Lack of Transportation (Non-Medical): Patient unable to answer Physical Activity: Not on file Stress: Not on file Social Connections: Not on file Interpersonal Safety: Patient Unable To Answer (08/08/2024) Humiliation, Afraid, Rape, and Kick questionnaire Fear of Current or Ex-Partner: Patient unable to answer Emotionally Abused: Patient unable to answer Physically Abused: Patient unable to answer Sexually Abused: Patient unable to answer Housing Instability: Patient Unable To Answer (08/08/2024) Housing Instability Housing Instability: Patient unable to answer Prior to Admission medications Medication Sig Start Date End Date Taking? Authorizing Provider acetaminophen (TYLENOL) 500 mg tablet Take 1 tablet (500 mg total) by mouth every 4 (four) hours as needed for pain. Yes Not In System Ref Prov albuterol (PROVENTIL HFA;VENTOLIN HFA) 90 mcg/actuation inhaler Inhale 2 puffs every 6 (six) hours as needed for wheezing. Yes Not In System Ref Prov amLODIPine (NORVASC) 5 mg tablet Take 1 tablet (5 mg total) by mouth in the morning. Patient taking differently: Take 0.5 tablets (2.5 mg total) by mouth in the morning. Yes Not In System Ref Prov aspirin 81 mg Take 1 tablet (81 mg total) by mouth in the morning. 04/23/24 Yes IRINA Avilez atorvastatin (LIPITOR) 40 mg tablet Take 2 tablets (80 mg total) by mouth in the morning. Yes Not In System Ref Prov bumetanide (BUMEX) 0.5 mg tablet Take 1 tablet (0.5 mg total) by mouth daily. 09/03/23 Yes IRINA Villalobos carvediloL (COREG) 6.25 mg tablet Take 1 tablet (6.25 mg total) by mouth once daily at bedtime. 04/23/24 Yes IRINA Avilez cetirizine (ZyrTEC) 10 mg tablet Take 1 tablet (10 mg total) by mouth in the morning. Yes Not In System Ref Prov docusate sodium (COLACE) 100 mg capsule Take 1 capsule (100 mg total) by mouth in the morning and 1 capsule (100 mg total) before bedtime. Yes Not In System Ref Prov dulaglutide (TRULICITY) 3 mg/0.5 mL pen injector Inject 0.5 mL under the skin once a week Indications: type 2 diabetes mellitus. Every Tuesday Yes Not In System Ref Prov ergocalciferol (DRISDOL) 1,250 mcg (50,000 unit) capsule Take 1 capsule (50,000 Units total) by mouth in the morning. Give 1 capsule by mouth one time daily starting on the and ending on the every month.. Yes Not In System Ref Prov fluticasone furoate-vilanteroL (BREO ELLIPTA) 100-25 mcg/dose blister with device Inhale 1 puff in the morning. Indications: bronchospasm prevention with COPD. Yes Not In System Ref Prov isosorbide mononitrate (IMDUR) 30 mg 24 hr tablet Take 1 tablet (30 mg total) by mouth daily. 07/19/19 Yes MD SOLEDAD Agrawal U-100 INSULIN 100 unit/mL (3 mL) insulin pen Inject 12 Units under the skin in the morning. 06/26/23 Yes Not In System Ref Prov levothyroxine (SYNTHROID, LEVOTHROID) 200 MCG tablet Take 1 tablet (200 mcg total) by mouth in the morning. 04/24/24 Yes IRINA Avilez magnesium hydroxide 400 mg/5 mL suspension Take 30 mL by mouth nightly as needed (constipation). Yes Not In System Ref Prov midodrine (PROAMATINE) 10 mg tablet Take 2 tablets (20 mg total) by mouth every morning. Tuesday, Tuesday, Tuesday for hypotension with dialysis. Yes Not In System Ref Prov polyethylene glycol (MIRALAX) 17 gram/dose powder Take 17 g by mouth in the morning. Yes Not In System Ref Prov sennosides-docusate sodium (SENNA WITH DOCUSATE SODIUM) 8.6-50 mg Take 1 tablet by mouth in the morning and 1 tablet before bedtime. Yes Not In System Ref Prov sertraline (ZOLOFT) 100 mg tablet Take 2 tablets (200 mg total) by mouth in the morning. Yes Not In System Ref Prov sevelamer (RENVELA) 800 mg tablet Take 1 tablet (800 mg total) by mouth in the morning and 1 tablet (800 mg total) at noon and 1 tablet (800 mg total) in the evening. Take with meals. Yes Not In System Ref Prov tenapanor (XPHOZAH) 20 mg tablet Take by mouth. Yes Not In System Ref Prov guaiFENesin (MUCINEX) 600 mg tablet extended release 12hr Take 1 tablet (600 mg total) by mouth every 12 (twelve) hours as needed (congestion). Not In System Ref Prov losartan (COZAAR) 100 mg tablet Take 1 tablet (100 mg total) by mouth in the morning. Patient not taking: Reported on 08/07/2024 04/24/24 Roopa Dominguez, SIMULATION SOFTWARE ENGINEER-EUGENIA vitamin B fntizm-L-QI-zinc cit (DIALYVITE 800 WITH ZINC 15) 0.8-15 mg tablet Take 1 tablet by mouth every morning. Not In System Ref Prov Allergies Allergen Reactions Amoxicillin Doxycycline Physical Exam: VITALS BP 134/48 Pulse 71 Temp 36.5 C (97.7 F) (Oral) Resp 17 Ht 162.6 cm (5' 4 ) Wt 104.6 kg (230 lb 9.6 oz) SpO2 100% BMI 39.58 kg/m Wt Readings from Last 3 Encounters: 08/09/24 104.6 kg (230 lb 9.6 oz) 04/23/24 100.8 kg (222 lb 3.6 oz) 04/20/24 104.2 kg (229 lb 12.8 oz) BMI: Body mass index is 39.58 kg/m . I/O (24 Hours) No intake or output data in the 24 hours ending 08/10/24 1041 General: Appears tired , No acute distress HEENT: Atraumatic, normocephalic. Anicteric sclera. Rawlings and moist oral mucosa. Neck supple. No JVD. Chest: Diminished air entry bilaterally Cardiovascular: RRR, S1S2, no murmur, rub or gallop. No lower extremity edema. Abdomen: Soft, non tender to palpation. Musculoskeletal: No cyanosis or clubbing. +1 edema atilio Integumentary: Rawlings, warm and dry. Free from rash or lesions. INSURANCE SOLICITOR: Intermittently confused , exam grossly non-focal Medications Scheduled Meds: albumin human, 25 g, intravenous, Once B complex-vitamin C-folic acid, 1 tablet, oral, Daily insulin lispro, 1-4 Units, subcutaneous, Nightly insulin lispro, 1-5 Units, subcutaneous, TID with meals levothyroxine, 200 mcg, oral, Daily nystatin, 1 Application, topical, BID pantoprazole, 40 mg, oral, QAM AC sennosides-docusate sodium, 2 tablet, oral, Nightly sertraline, 100 mg, oral, Daily sodium chloride, 3 mL, intravenous, Q12H MARC Continuous Infusions: PRN Meds: acetaminophen calcium carbonate calcium gluconate calcium gluconate calcium gluconate dextrose dextrose 50 % in water (D50W) glucagon (human recombinant) hydrALAZINE ipratropium-albuteroL magnesium sulfate magnesium sulfate melatonin potassium chloride OR potassium chloride OR potassium chloride IV (Adult) prochlorperazine sodium chloride sodium chloride Results Review Renal Panel Lab Results Component Value Date SODIUM 135 08/10/2024 SODIUM 137 08/09/2024 SODIUM 136 08/08/2024 SODIUM 137 08/08/2024 SODIUM 132 (L) 08/06/2024 K 5.1 (H) 08/10/2024 K 4.9 08/09/2024 K 4.4 08/08/2024 K 5.5 (H) 08/08/2024 K 5.5 (H) 08/08/2024 CL 99 08/10/2024 CL 101 08/09/2024 CL 100 08/08/2024 CL 101 08/08/2024 CL 97 (L) 08/06/2024 CO2 26 08/10/2024 CO2 27 08/09/2024 CO2 26 08/08/2024 CO2 27 08/08/2024 CO2 26 08/06/2024 ANIONGAP 10 08/10/2024 ANIONGAP 9 08/09/2024 ANIONGAP 10 08/08/2024 ANIONGAP 9 08/08/2024 ANIONGAP 9 08/06/2024 BUN 58 (H) 08/10/2024 BUN 45 (H) 08/09/2024 BUN 37 (H) 08/08/2024 BUN 57 (H) 08/08/2024 BUN 45 (H) 08/06/2024 CREATININE 4.91 (H) 08/10/2024 CREATININE 3.99 (H) 08/09/2024 CREATININE 3.43 (H) 08/08/2024 CREATININE 4.94 (H) 08/08/2024 CREATININE 3.86 (H) 08/06/2024 EGFR 9 (L) 08/10/2024 EGFR 11 (L) 08/09/2024 EGFR 14 (L) 08/08/2024 EGFR 9 (L) 08/08/2024 EGFR 12 (L) 08/06/2024 CALCIUM 8.5 08/10/2024 CALCIUM 8.6 08/09/2024 CALCIUM 8.3 (L) 08/08/2024 CALCIUM 8.5 08/08/2024 CALCIUM 8.1 (L) 08/06/2024 MG 1.9 08/10/2024 MG 1.9 08/09/2024 MG 2.0 08/08/2024 MG 1.9 04/23/2024 MG 2.0 04/22/2024 PHOSPHORUS 4.6 08/10/2024 PHOSPHORUS 3.9 08/09/2024 PHOSPHORUS 4.0 08/08/2024 PHOSPHORUS 4.4 04/21/2024 PHOSPHORUS 4.9 07/16/2019 Lab Results Component Value Date TOTALPROTEI 6.0 08/06/2024 TOTALPROTEI 6.2 04/23/2024 ALBUMIN 3.0 (L) 08/06/2024 ALBUMIN 3.1 (L) 04/23/2024 AST 16 08/06/2024 AST 21 04/23/2024 ALT 15 08/06/2024 ALT 17 04/23/2024 BILIRUBIN 0.4 08/06/2024 BILIRUBIN 0.5 04/23/2024 ALKPHOS 81 08/06/2024 ALKPHOS 88 04/23/2024 Lab Results Component Value Date WBC 5.4 08/10/2024 WBC 5.4 08/09/2024 HGB 7.3 (L) 08/10/2024 HGB 8.0 (L) 08/09/2024 HCT 22.0 (L) 08/10/2024 HCT 23.9 (L) 08/09/2024 PLT 118 (L) 08/10/2024 PLT 126 (L) 08/09/2024 Lab Results Component Value Date IRONSAT 36 08/08/2024 IRONSAT 11 (L) 07/13/2019 FERRITIN 504 (H) 08/08/2024 [id number] 392 08/08/2024 [id number] 351 04/21/2024 FOLATE 5.4 (L) 08/08/2024 FOLATE 6.3 04/21/2024 Results from last 7 days Lab Units 08/10/24 0524 08/09/24 0600 08/08/24 0421 MAGNESIUM mg/dL 1.9 1.9 2.0 Lab Results Component Value Date CALCIUM 8.5 08/10/2024 CALCIUM 8.6 08/09/2024 PHOSPHORUS 4.6 08/10/2024 PHOSPHORUS 3.9 08/09/2024 Urine Studies: Lab Results Component Value Date COLOR YELLOW 07/17/2019 TURBIDITY HAZY (A) 07/17/2019 SPECIFICGRA 1.025 04/20/2024 SPECIFICGRA 1.020 07/17/2019 NITRITE Negative 07/17/2019 PHURINE 8.5 07/17/2019 LEUKOCYTE Trace (A) 04/20/2024 LEUKOCYTE Negative 07/17/2019 PROTEIN 100 (A) 07/17/2019 KETONES Negative 07/17/2019 UROBILINOGEN 0.2 04/20/2024 UROBILINOGEN 0.2 07/17/2019 BLOODHGB Negative 07/17/2019 Lab Results Component Value Date ALBCREATRA 1,684.1 (H) 07/14/2019 Immunology Profile Lab Results Component Value Date CRP <0.5 04/20/2024 No results found for: HAV , HEPAIGM , HEPBIGM , HEPBCAB , HBEAG , HEPCAB Imaging Echo complete W/ contrast Result Date: 04/23/2024 The left ventricle appears normal in size. Severely increased LV wall thickness No obvious wall motion abnormality noted Normal LV systolic function, ejection fraction 55-60% Grade 1 LV diastolic dysfunction The right ventricle appears normal in size and function The left and right atrium appears normal in size The aortic valve was not well visualized no obvious, regurgitation or stenosis The mitral valve leaflet appears thickened, posterior mitral valve leaflet mobility is severely reduced As per Doppler study mean gradient 4 mm of mercury suggestive of mild mitral stenosis per the left atrium does not appear enlarged There was trace mitral regurgitation Trace tricuspid regurgitation no stenosis Right ventricular systolic pressure 27 mm of mercury Trace pulmonary regurgitation no stenosis Normal aortic root dimension The IVC appears normal in size, normal respiratory variation No significant pericardial effusion seen Thank you for the consultation. Please do not hesitate to contact us for any further questions/concerns. We will continue to follow along with you. Images from the original note were not included. [facility] Jacques Mccall, [facility] Nephrology Progress Note Patient Name: Janay Schilling : 1950 Date of Service: 08/09/24 PCP: DEENA PERKINS MD Attending Physician: Martin Garber MD Admission Date: 08/07/2024 Length of stay: LOS: 2 days Chief complaint No chief complaint on file. Reason for Consult: ESRD on HD Assessment and Plan 74-year-old female with a past medical history significant for end-stage renal disease on hemodialysis (/Th/Sat via left upper extremity AV fistula), hypertension, type 2 diabetes mellitus, diastolic heart failure, hypothyroidism, hyperlipidemia, and prior stroke, presented with melena and progressive dyspnea for 3 days. Initial hemoglobin was 5.9 g/dL, prompting transfer from an outside facility. She also reported dizziness and a transient episode of chest discomfort. No hematemesis, abdominal pain, nausea, vomiting, or NSAID use. Chronic aspirin use noted. She was hemodynamically stable on arrival and received 2 units of PRBCs with improvement of Hgb to 8.9 g/dL. Labs showed normocytic anemia, INR 0.9, normal aPTT, and no leukocytosis. CT abdomen/pelvis revealed atrophic kidneys with cysts and severe aortic calcification. BNP 166, chest X-ray and EKG unremarkable. 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 GI on board History of CHF History of DM History of Hypothyroidism Obesity / CATARINO Plan Initially planned for HD , Pt nauseated / clinically unstable in HD unit per nursing staff , HD held today, will attempt tomorrow AM [place] Q weekly - No need for Iron Tx - Iron stores areadequate Phos level ANL, Pt not eating, will dc Phos binders for now HD diet, 1400 ml/24 hr fluid restriction Dose all meds to GFR < 10 Thank you for this consultation, we will follow along with you regarding care of this patient while the patient is here in the hospital, please call if you have any questions or concerns. MIKE MASTERSON MD on 08/09/2024 at 5:29 PM [facility]. Ph: [phone] History of presenting illness Pt seen at bedside She remains somnolent No acute distress Past Medical History: Diagnosis Date Anemia, unspecified Cellulitis Cellulitis, unspecified CHF (congestive heart failure) ([facility]) Chronic kidney disease, unspecified Depression Diabetes mellitus type 2, controlled ([facility]) Difficulty walking DM (diabetes mellitus) ([facility]) MALHOTRA (dyspnea on exertion) Heart failure, systolic ([facility]) Hyperlipidemia Hypertension Hypothyroidism Infectious viral hepatitis Muscle weakness (generalized) Obesity Obstructive chronic bronchitis without exacerbation ([facility]) Post-COVID syndrome resolved Stroke ([facility]) Past Surgical History: Procedure Laterality Date APPENDECTOMY CHOLECYSTECTOMY TONSILLECTOMY Family History Problem Relation Age of Onset Heart disease Mother Kidney disease Mother Alzheimer's disease Sister Hypertension Sister Kidney disease Brother Breast cancer Neg Hx Social History Socioeconomic History Marital status: Single Spouse name: Not on file Number of children: Not on file Years of education: Not on file Highest education level: Not on file Occupational History Not on file Tobacco Use Smoking status: Former Current packs/day: 0.00 Average packs/day: 1 pack/day for 53.9 years (53.9 ttl pk-yrs) Types: Cigarettes Start date: 1969 Quit date: 04/01/2023 Years since quittin.3 Smokeless tobacco: Never Vaping Use Vaping status: Never Used Substance and Sexual Activity Alcohol use: No Drug use: No Sexual activity: Defer Other Topics Concern Caffeine Use Yes Social History Narrative Not on file Social Drivers of Health Financial Resource Strain: Not on file Food Insecurity: Patient Unable To Answer (08/08/2024) Hunger Screening Food Insecurity - Worry: Patient unable to answer Food Insecurity - Inability: Patient unable to answer Transportation Needs: Patient Unable To Answer (08/08/2024) PRAPARE - Transportation Lack of Transportation (Medical): Patient unable to answer Lack of Transportation (Non-Medical): Patient unable to answer Physical Activity: Not on file Stress: Not on file Social Connections: Not on file Interpersonal Safety: Patient Unable To Answer (08/08/2024) Humiliation, Afraid, Rape, and Kick questionnaire Fear of Current or Ex-Partner: Patient unable to answer Emotionally Abused: Patient unable to answer Physically Abused: Patient unable to answer Sexually Abused: Patient unable to answer Housing Instability: Patient Unable To Answer (08/08/2024) Housing Instability Housing Instability: Patient unable to answer Prior to Admission medications Medication Sig Start Date End Date Taking? Authorizing Provider acetaminophen (TYLENOL) 500 mg tablet Take 1 tablet (500 mg total) by mouth every 4 (four) hours as needed for pain. Yes Not In System Ref Prov albuterol (PROVENTIL HFA;VENTOLIN HFA) 90 mcg/actuation inhaler Inhale 2 puffs every 6 (six) hours as needed for wheezing. Yes Not In System Ref Prov amLODIPine (NORVASC) 5 mg tablet Take 1 tablet (5 mg total) by mouth in the morning. Patient taking differently: Take 0.5 tablets (2.5 mg total) by mouth in the morning. Yes Not In System Ref Prov aspirin 81 mg Take 1 tablet (81 mg total) by mouth in the morning. 04/23/24 Yes IRINA Avilez atorvastatin (LIPITOR) 40 mg tablet Take 2 tablets (80 mg total) by mouth in the morning. Yes Not In System Ref Prov bumetanide (BUMEX) 0.5 mg tablet Take 1 tablet (0.5 mg total) by mouth daily. 09/03/23 Yes IRINA Villalobos carvediloL (COREG) 6.25 mg tablet Take 1 tablet (6.25 mg total) by mouth once daily at bedtime. 04/23/24 Yes IRINA Avilez cetirizine (ZyrTEC) 10 mg tablet Take 1 tablet (10 mg total) by mouth in the morning. Yes Not In System Ref Prov docusate sodium (COLACE) 100 mg capsule Take 1 capsule (100 mg total) by mouth in the morning and 1 capsule (100 mg total) before bedtime. Yes Not In System Ref Prov dulaglutide (TRULICITY) 3 mg/0.5 mL pen injector Inject 0.5 mL under the skin once a week Indications: type 2 diabetes mellitus. Every Tuesday Yes Not In System Ref Prov ergocalciferol (DRISDOL) 1,250 mcg (50,000 unit) capsule Take 1 capsule (50,000 Units total) by mouth in the morning. Give 1 capsule by mouth one time daily starting on the and ending on the every month.. Yes Not In System Ref Prov fluticasone furoate-vilanteroL (BREO ELLIPTA) 100-25 mcg/dose blister with device Inhale 1 puff in the morning. Indications: bronchospasm prevention with COPD. Yes Not In System Ref Prov isosorbide mononitrate (IMDUR) 30 mg 24 hr tablet Take 1 tablet (30 mg total) by mouth daily. 07/19/19 Yes MD SOLEDAD Agrawal U-100 INSULIN 100 unit/mL (3 mL) insulin pen Inject 12 Units under the skin in the morning. 06/26/23 Yes Not In System Ref Prov levothyroxine (SYNTHROID, LEVOTHROID) 200 MCG tablet Take 1 tablet (200 mcg total) by mouth in the morning. 04/24/24 Yes Roopa Dominguez APRN-EUGENIA magnesium hydroxide 400 mg/5 mL suspension Take 30 mL by mouth nightly as needed (constipation). Yes Not In System Ref Prov midodrine (PROAMATINE) 10 mg tablet Take 2 tablets (20 mg total) by mouth every morning. Tuesday, Tuesday, Tuesday for hypotension with dialysis. Yes Not In System Ref Prov polyethylene glycol (MIRALAX) 17 gram/dose powder Take 17 g by mouth in the morning. Yes Not In System Ref Prov sennosides-docusate sodium (SENNA WITH DOCUSATE SODIUM) 8.6-50 mg Take 1 tablet by mouth in the morning and 1 tablet before bedtime. Yes Not In System Ref Prov sertraline (ZOLOFT) 100 mg tablet Take 2 tablets (200 mg total) by mouth in the morning. Yes Not In System Ref Prov sevelamer (RENVELA) 800 mg tablet Take 1 tablet (800 mg total) by mouth in the morning and 1 tablet (800 mg total) at noon and 1 tablet (800 mg total) in the evening. Take with meals. Yes Not In System Ref Prov tenapanor (XPHOZAH) 20 mg tablet Take by mouth. Yes Not In System Ref Prov guaiFENesin (MUCINEX) 600 mg tablet extended release 12hr Take 1 tablet (600 mg total) by mouth every 12 (twelve) hours as needed (congestion). Not In System Ref Prov losartan (COZAAR) 100 mg tablet Take 1 tablet (100 mg total) by mouth in the morning. Patient not taking: Reported on 08/07/2024 04/24/24 Roopa Dominguez, GARRY-EUGENIA vitamin B [id number] cit (DIALYVITE 800 WITH ZINC 15) 0.8-15 mg tablet Take 1 tablet by mouth every morning. Not In System Ref Prov Allergies Allergen Reactions Amoxicillin Doxycycline Review Of Systems: ROS could not be done due to clinical condition Physical Exam: VITALS BP 175/57 Pulse 64 Temp 36.6 C (97.8 F) (Axillary) Resp 18 Ht 162.6 cm (5' 4 ) Wt 104.6 kg (230 lb 9.6 oz) SpO2 100% BMI 39.58 kg/m Wt Readings from Last 3 Encounters: 08/09/24 104.6 kg (230 lb 9.6 oz) 04/23/24 100.8 kg (222 lb 3.6 oz) 04/20/24 104.2 kg (229 lb 12.8 oz) BMI: Body mass index is 39.58 kg/m . I/O (24 Hours) Intake/Output Summary (Last 24 hours) at 08/09/2024 1729 Last data filed at 08/08/2024 1730 Gross per 24 hour Intake 720 ml Output 1860 ml Net -1140 ml General: Pt seems to be tired / Sleepy, arousable HEENT: Atraumatic, normocephalic. Anicteric sclera. Rawlings and moist oral mucosa. Neck supple. No JVD. Chest: Bilateral air entry equal but diminished , No rhonchi, some basal crackles Cardiovascular: RRR, S1S2, no murmur, rub or gallop. No lower extremity edema. Abdomen: Soft, non tender to palpation. Musculoskeletal: No cyanosis or clubbing. +1 edema Integumentary: Rawlings, warm and dry. Free from rash or lesions. INSURANCE SOLICITOR: Pt is confused - unclear baseline mental status , exam grossly non-focal Medications Scheduled Meds: albumin human, 25 g, intravenous, Once B complex-vitamin C-folic acid, 1 tablet, oral, Daily insulin lispro, 1-4 Units, subcutaneous, Nightly insulin lispro, 1-5 Units, subcutaneous, TID with meals levothyroxine, 200 mcg, oral, Daily nystatin, 1 Application, topical, BID pantoprazole, 40 mg, intravenous, Q12H sennosides-docusate sodium, 2 tablet, oral, Nightly sertraline, 100 mg, oral, Daily sevelamer, 800 mg, oral, BID with meals sodium chloride, 3 mL, intravenous, Q12H MARC Continuous Infusions: PRN Meds: acetaminophen calcium carbonate calcium gluconate calcium gluconate calcium gluconate dextrose dextrose 50 % in water (D50W) glucagon (human recombinant) hydrALAZINE ipratropium-albuteroL magnesium sulfate magnesium sulfate melatonin potassium chloride OR potassium chloride OR potassium chloride IV (Adult) sodium chloride sodium chloride Results Review Renal Panel Lab Results Component Value Date SODIUM 137 08/09/2024 SODIUM 136 08/08/2024 SODIUM 137 08/08/2024 SODIUM 132 (L) 08/06/2024 SODIUM 130 (L) 04/23/2024 K 4.9 08/09/2024 K 4.4 08/08/2024 K 5.5 (H) 08/08/2024 K 5.5 (H) 08/08/2024 K 4.5 08/06/2024 CL 101 08/09/2024 CL 100 08/08/2024 CL 101 08/08/2024 CL 97 (L) 08/06/2024 CL 99 04/23/2024 CO2 27 08/09/2024 CO2 26 08/08/2024 CO2 27 08/08/2024 CO2 26 08/06/2024 CO2 25 04/23/2024 ANIONGAP 9 08/09/2024 ANIONGAP 10 08/08/2024 ANIONGAP 9 08/08/2024 ANIONGAP 9 08/06/2024 ANIONGAP 6 04/23/2024 BUN 45 (H) 08/09/2024 BUN 37 (H) 08/08/2024 BUN 57 (H) 08/08/2024 BUN 45 (H) 08/06/2024 BUN 29 (H) 04/23/2024 CREATININE 3.99 (H) 08/09/2024 CREATININE 3.43 (H) 08/08/2024 CREATININE 4.94 (H) 08/08/2024 CREATININE 3.86 (H) 08/06/2024 CREATININE 3.61 (H) 04/23/2024 EGFR 11 (L) 08/09/2024 EGFR 14 (L) 08/08/2024 EGFR 9 (L) 08/08/2024 EGFR 12 (L) 08/06/2024 EGFR 13 (L) 04/23/2024 CALCIUM 8.6 08/09/2024 CALCIUM 8.3 (L) 08/08/2024 CALCIUM 8.5 08/08/2024 CALCIUM 8.1 (L) 08/06/2024 CALCIUM 8.4 (L) 04/23/2024 MG 1.9 08/09/2024 MG 2.0 08/08/2024 MG 1.9 04/23/2024 MG 2.0 04/22/2024 MG 1.7 (L) 04/20/2024 PHOSPHORUS 3.9 08/09/2024 PHOSPHORUS 4.0 08/08/2024 PHOSPHORUS 4.4 04/21/2024 PHOSPHORUS 4.9 07/16/2019 PHOSPHORUS 5.1 (H) 07/15/2019 Lab Results Component Value Date TOTALPROTEI 6.0 08/06/2024 TOTALPROTEI 6.2 04/23/2024 ALBUMIN 3.0 (L) 08/06/2024 ALBUMIN 3.1 (L) 04/23/2024 AST 16 08/06/2024 AST 21 04/23/2024 ALT 15 08/06/2024 ALT 17 04/23/2024 BILIRUBIN 0.4 08/06/2024 BILIRUBIN 0.5 04/23/2024 ALKPHOS 81 08/06/2024 ALKPHOS 88 04/23/2024 Lab Results Component Value Date WBC 5.4 08/09/2024 WBC 6.0 08/08/2024 HGB 8.0 (L) 08/09/2024 HGB 7.8 (L) 08/09/2024 HCT 23.9 (L) 08/09/2024 HCT 23.7 (L) 08/09/2024 PLT 126 (L) 08/09/2024 PLT 124 (L) 08/08/2024 Lab Results Component Value Date IRONSAT 36 08/08/2024 IRONSAT 11 (L) 07/13/2019 FERRITIN 504 (H) 08/08/2024 [id number] 392 08/08/2024 [id number] 351 04/21/2024 FOLATE 5.4 (L) 08/08/2024 FOLATE 6.3 04/21/2024 Results from last 7 days Lab Units 08/09/24 0600 08/08/24 0421 MAGNESIUM mg/dL 1.9 2.0 Lab Results Component Value Date CALCIUM 8.6 08/09/2024 CALCIUM 8.3 (L) 08/08/2024 PHOSPHORUS 3.9 08/09/2024 PHOSPHORUS 4.0 08/08/2024 Urine Studies: Lab Results Component Value Date COLOR YELLOW 07/17/2019 TURBIDITY HAZY (A) 07/17/2019 SPECIFICGRA 1.025 04/20/2024 SPECIFICGRA 1.020 07/17/2019 NITRITE Negative 07/17/2019 PHURINE 8.5 07/17/2019 LEUKOCYTE Trace (A) 04/20/2024 LEUKOCYTE Negative 07/17/2019 PROTEIN 100 (A) 07/17/2019 KETONES Negative 07/17/2019 UROBILINOGEN 0.2 04/20/2024 UROBILINOGEN 0.2 07/17/2019 BLOODHGB Negative 07/17/2019 Lab Results Component Value Date ALBCREATRA 1,684.1 (H) 07/14/2019 Immunology Profile Lab Results Component Value Date CRP <0.5 04/20/2024 No results found for: HAV , HEPAIGM , HEPBIGM , HEPBCAB , HBEAG , HEPCAB Imaging Echo complete W/ contrast Result Date: 04/23/2024 The left ventricle appears normal in size. Severely increased LV wall thickness No obvious wall motion abnormality noted Normal LV systolic function, ejection fraction 55-60% Grade 1 LV diastolic dysfunction The right ventricle appears normal in size and function The left and right atrium appears normal in size The aortic valve was not well visualized no obvious, regurgitation or stenosis The mitral valve leaflet appears thickened, posterior mitral valve leaflet mobility is severely reduced As per Doppler study mean gradient 4 mm of mercury suggestive of mild mitral stenosis per the left atrium does not appear enlarged There was trace mitral regurgitation Trace tricuspid regurgitation no stenosis Right ventricular systolic pressure 27 mm of mercury Trace pulmonary regurgitation no stenosis Normal aortic root dimension The IVC appears normal in size, normal respiratory variation No significant pericardial effusion seen Thank you for the consultation. Please do not hesitate to contact us for any further questions/concerns. We will continue to follow along with you. DAILY PROGRESS NOTE IMS-2 This is a progress note for Janay Schilling, a 74 y.o. who has been admitted for 2 midnights DATE OF ADMISSION 08/07/2024 10:56 PM HPI/HOSPITAL COURSE: Janay Schilling is a 74 y.o. female with a PMH significant for ESRD on dialysis Tuesday, and Tuesday via left upper extremity AV fistula, hypertension, hyperlipidemia, diastolic heart failure, and type 2 diabetes who presented with melena over the last 24 hours and of breath over the last 3 days. Patient also had some chest pain that had resolved by the time she was transferred here to [facility]. Patient also reports she had some dizziness on arrival to outside ED. Patient was transferred from [facility] to [facility] for GI eval. Pt's last dialysis session was 08/06 and pt is compliant with outpatient dialysis sessions. Pt is on baseline 2 L of oxygen at home. Pt denies NSAID use and is not on blood thinners, pt is on daily baby aspirin. ED Course: Patient outside ED found the have a hemoglobin of 5.9, and had positive fecal occult blood. EKG did not show any ST changes in troponin 0 at 1 hr both 28. BNP of 166. No acute findings on CT abdomen/pelvis. Vitals are BP 172/59, pulse 76, resp 18, pulse ox 95% on 2 L of O2,On my exam, patient's lung exam is CTAB. Pt has trace edema of LE. At OSH patient elected to have her code status DNRCC, I on admission clarified what her goals of care are and she said that she wanted a full workup, and in case of cardiopulmonary arrest with she would CPR and intubation. Patient says that she is totally not sure that she wants to be full code but this time this is which she chose her code status to be. SUBJECTIVE: Patient was examined bedside. There were no acute events overnight. Patient appears to be more arousable and alert. She is alert and oriented times to herself, time and place. Patient stated that she wanted to be full code and would like full treatment. We are still having difficulty establishing were POA is. range aid is working on getting the paperwork. Palliative Care is consulted for goals of care. Patient denies any chest pain, shortness of breath, abdominal pain. Denies any nausea or vomiting. No bowel movements. Last bowel movement was noted on 08/07 2 B black informed. OBJECTIVE: Vital Signs Temp: [36.1 C (96.9 F)-36.7 C (98 F)] 36.7 C (98 F) Pulse: [40-88] 68 Resp: [12-18] 15 BP: (83-181)/(40-70) 140/47 SpO2: [97 %-100 %] 100 % O2 Device: Nasal cannula O2 Flow Rate (L/min): [3 L/min] 3 L/min Weight: Admission weight: 115.6 kg (254 lb 13.6 oz) Wt Readings from Last 3 Encounters: 08/08/24 106.6 kg (235 lb 0.2 oz) 04/23/24 100.8 kg (222 lb 3.6 oz) 04/20/24 104.2 kg (229 lb 12.8 oz) Input/Output: Intake/Output Summary (Last 24 hours) at 08/09/2024 1326 Last data filed at 08/08/2024 1730 Gross per 24 hour Intake 1120 ml Output 1860 ml Net -740 ml Physical Exam Physical Exam Constitutional: Appearance: Normal appearance. HENT: Head: Normocephalic. Mouth/Throat: Pharynx: Oropharynx is clear. Eyes: Extraocular Movements: Extraocular movements intact. Conjunctiva/sclera: Conjunctivae normal. Pupils: Pupils are equal, round, and reactive to light. Cardiovascular: Rate and Rhythm: Regular rhythm. Heart sounds: Normal heart sounds. Pulmonary: Effort: Pulmonary effort is normal. Breath sounds: Normal breath sounds. Abdominal: Tenderness: There is no abdominal tenderness. Musculoskeletal: General: No tenderness. Right lower leg: No edema. Left lower leg: No edema. Neurological: General: No focal deficit present. Mental Status: She is alert. Psychiatric: Mood and Affect: Mood normal. Labs Results from last 7 days Lab Units 08/09/24 0608/08/24 19008/08/24 0421 WBC X10E9/L 5.4 6.0 6.4 HEMOGLOBIN g/dL 7.8* 7.6* 7.6* HEMATOCRIT % 23.7* 23.0* 23.3* PLATELETS X10E9/L 126* 124* 124* Results from last 7 days Lab Units 08/07/24 0448 APTT sec 25* INR 0.9 Results from last 7 days Lab Units 08/09/24 0600 08/08/24 1902 08/08/24 0929 08/08/24 0421 SODIUM mmol/L 137 136 -- 137 POTASSIUM mmol/L 4.9 4.4 5.5* 5.5* CHLORIDE mmol/L 101 100 -- 101 CO2 mmol/L 27 26 -- 27 BUN mg/dL 45* 37* -- 57* CREATININE mg/dL 3.99* 3.43* -- 4.94* CALCIUM mg/dL 8.6 8.3* -- 8.5 PHOSPHORUS mg/dL 3.9 -- -- 4.0 MAGNESIUM mg/dL 1.9 -- -- 2.0 Results from last 7 days Lab Units 08/06/24 2130 ALBUMIN g/dL 3.0* TOTAL PROTEIN g/dL 6.0 ALT U/L 15 AST U/L 16 ALK PHOS U/L 81 Results from last 7 days Lab Units 08/09/24 1118 08/09/24 0813 08/09/24 0600 BEDSIDE GLUCOSE mg/dL 178* 129* -- GLUCOSE mg/dL -- -- 118* Lab Results Component Value Date HGBA1C 8.1 (H) 04/21/2024 Results from last 7 days Lab Units 08/06/24 2130 BNP pg/mL 166* Results from last 7 days Lab Units 04/09/25 0004 VITAMIN B 12 pg/mL 392 FOLATE ng/mL 5.4* FERRITIN ng/mL 504* IRON ug/dL 88 TIBC-CALC ONLY DO NOT ORDER ug/dL 242* IRON SATURATION % SATURATION 36 Lab Results Component Value Date WBCU 6 (H) 07/17/2019 SPECIFICGRA 1.025 04/20/2024 LEUKOCYTE Trace (A) 04/20/2024 NITRITEN Negative 04/20/2024 PHNUR 6.5 04/20/2024 PROTEINNUR >=300 (A) 04/20/2024 KETONESNUR Negative 04/20/2024 UROBILINOGEN 0.2 04/20/2024 BLOODHGBNU Trace (A) 04/20/[address] abdomen and pelvis without contrast Result Date: 08/06/2024 EXAM: ABDOMEN AND PELVIS CT WITHOUT CONTRAST CLINICAL INFORMATION: gi bleeding and epigastric and chest pain. TECHNIQUE: Routine unenhanced CT of the abdomen and pelvis was performed utilizing 5 mm axial reconstructions. Coronal and sagittal reformatted images as were obtained and reviewed. Automated exposure control was utilized. COMPARISON: 12/06/2023 FINDINGS: The limited visualized lung bases demonstrates bibasilar atelectasis and/or scarring. Again seen are chronically atrophic kidneys. Calcifications within the renal sam are compatible with a vascular etiology. There are no convincing ureteral stones or evidence for collecting system dilatation in either kidney. Cysts in both kidneys are again noted. The gallbladder is absent. Stable appearance of bilateral adrenal nodules, suspected adenomas. The liver, spleen, and pancreas are unremarkable within the limitations of an unenhanced CT. There are no dilated loops of bowel or evidence for pneumatosis or free air. There is no significant free fluid. Again seen are very severe dense calcifications throughout a normal diameter abdominal aorta. 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 A densely calcified fibroid is again noted. IMPRESSION: 1. No convincing evidence for acute abnormalities in the abdomen and pelvis, within the limitations of an unenhanced CT. 2. Stable appearance of multiple chronic and incidental CT findings, as above. All CT scans at this facility use dose modulation, iterative reconstruction, and/or weight based dosing when appropriate to reduce radiation dose to as low as reasonably achievable. Finalized by Armando Milton MD on 08/06/2024 11:07 PM X-ray chest 1 view Result Date: 08/06/2024 Single view chest XR CHEST 1 VW History: chest pain Comparison: April 21, 2024 Impression: * No consolidation or pleural fluid. No acute findings. Finalized by Elias Nunn MD on 08/06/2024 9:46 PM Cultures Microbiology Results No results found for the last 168 hours. HOSPITAL MEDICATIONS: Scheduled: albumin human, 25 g, intravenous, Once B complex-vitamin C-folic acid, 1 tablet, oral, Daily insulin lispro, 1-4 Units, subcutaneous, Nightly insulin lispro, 1-5 Units, subcutaneous, TID with meals levothyroxine, 200 mcg, oral, Daily nystatin, 1 Application, topical, BID pantoprazole, 40 mg, intravenous, Q12H sertraline, 100 mg, oral, Daily sevelamer, 800 mg, oral, BID with meals sodium chloride, 3 mL, intravenous, Q12H MARC Infusions: As Needed: acetaminophen calcium carbonate calcium gluconate calcium gluconate calcium gluconate dextrose dextrose 50 % in water (D50W) glucagon (human recombinant) hydrALAZINE ipratropium-albuteroL magnesium sulfate magnesium sulfate melatonin potassium chloride OR potassium chloride OR potassium chloride IV (Adult) sodium chloride sodium chloride ALLERGIES: Allergies Allergen Reactions Amoxicillin Doxycycline ASSESSMENT AND PLAN: Melena concerning for Upper GI bleed Acute on chronic macrocytic anemia, HgB of 5.9 on presentation H and H q12H Transfuse for HgB less than 7, pt received 2 unit pRBC at OSH IV protonix BID Check b12, folate, and iron studies Consult GI, appreciate recommendation. No endoscopic intervention for now from GI standpoint. Hemoglobin is stable. No black tarry bowel movements since 08/07. Symptomatic Anemia resulting in shortness of breath and chest pain Resolved after pt was transfused with blood, pt not fluid overloaded on exam and did not miss dialysis sessions EKG without ischemic changes and troponin 0 + 1 hr both 28, will do additional cardiac workup if pt has another episode of chest pain Altered mental status, most likely due to hyperammoniemia vs. Hyperkalemia vs. Hypercarbia Plan for HD today. Will check ammonia, ABG, TSH, and evaluate mentation after. Patient unsure what she wants to do with her code status. Recommend goals of care discussion again in am to talk with patient as she went from DNRCC to FULL code.Pt at time of my exam reported she wanted to be FULL code for now. ESRD on HD Consult nephrology for dialysis while inpatient. Patient received hemodialysis yesterday. Chronic Issues: Essential hypertension Hold home BP meds in setting of GI bleed Hyperlipidemia Resume home atorvastatin Diastolic heart failure, not in exacerbation Type 2 diabetes, insulin dependent LCS while inpatient, can resume home lantus at reduced dose once home meds are confirmed Hypothyroidism Resume home levothyroxine DVT prophylaxis: Hold due to possible procedure GI prophylaxis: PPI Diet: Clear liquid Fluids: none Code Status: DCR CC The patient was seen and discussed with attending Dr. Renteria. This note was created with the assistance of speech-recognition program. Every effort was made to ensure accuracy; however, inadvertent computerized stud master/mistress errors may be present. Matt Jimenes MD PGY-1 Internal Medicine Resident 08/09/24 1:26 PM Cosigned by Martin Garber MD at 08/10/2024 3:09 PM EDT Associated attestation - Martin Garber MD - 08/10/2024 3:09 PM EDT Attending Note I have seen and discussed the patient during rounds. I performed, participated and was present during the critical/flores portions of the service. I was directly involved in the management and treatment plan of the patient. I reviewed the resident's note and agree with the findings and plan. Comments: Pt is confused. She is oriented to self only. Palliative consulted to clarify code status. H/H stable. POA verified: it's her sister David. Electronically signed by: Martin Garber MD This note is created with the assistance of a speech-recognition program. While intending to generate a document that actually reflects the content of the visit, no guarantees can be provided that every mistake has been identified and corrected by editing. [facility] Teaching GI Service Consult Gastroenterology/Hepatology Progress Note IDENTIFYING DATA PATIENT: Janay Schilling ADMIT DATE: 08/07/2024 TIME OF EVALUATION: 08/09/2024 12:58 PM HOSPITAL STAY: LOS: 2 days REASON FOR CONSULT: Acute anemia. SUBJECTIVE/INTERVAL HISTORY Janay Schilling's overnight events were reviewed. Patient was seen and evaluated More alert and oriented compared to yesterday was transferred to ICU. Hypotension indicated the transfer to ICU. No bowel movement or any documented overt GI bleed since being in hospital Hemoglobin is trending up today is 7.8 and yesterday 08/08/2024 was 7.6. OBJECTIVE MEDICATIONS SCHEDULED: albumin human, 25 g, intravenous, Once B complex-vitamin C-folic acid, 1 tablet, oral, Daily insulin lispro, 1-4 Units, subcutaneous, Nightly insulin lispro, 1-5 Units, subcutaneous, TID with meals levothyroxine, 200 mcg, oral, Daily nystatin, 1 Application, topical, BID pantoprazole, 40 mg, intravenous, Q12H sertraline, 100 mg, oral, Daily sevelamer, 800 mg, oral, BID with meals sodium chloride, 3 mL, intravenous, Q12H MARC PRNs: acetaminophen, 650 mg, Q6H PRN calcium carbonate, 200 mg, TID PRN calcium gluconate, 3,000 mg, PRN calcium gluconate, 4,000 mg, PRN calcium gluconate, 2,000 mg, PRN dextrose, 15 g, PRN dextrose 50 % in water (D50W), 25 mL, PRN glucagon (human recombinant), 1 mg, PRN hydrALAZINE, 10 mg, Q6H PRN ipratropium-albuteroL, 3 mL, Q6H PRN magnesium sulfate, 2,000 mg, PRN magnesium sulfate, 4,000 mg, PRN melatonin, 5 mg, Nightly PRN potassium chloride, 20-40 mEq, PRN Or potassium chloride, 20-40 mEq, PRN Or potassium chloride IV (Adult), 10 mEq, PRN sodium chloride, 3 mL, PRN sodium chloride, 25 mL, PRN Physical VITALS: BP 140/47 Pulse 68 Temp 36.7 C (98 F) (Oral) Resp 15 Ht 162.6 cm (5' 4 ) Wt 106.6 kg (235 lb 0.2 oz) SpO2 100% BMI 40.34 kg/m GEN: appears stated age, NAD CV: RRR, no peripheral edema PULM: breathing comfortably ABD: soft, non-tender, non-distended NEURO: alert and oriented x3 LABS AND IMAGING CBC: Lab Results Component Value Date WBC 5.4 08/09/2024 HGB 7.8 (L) 08/09/2024 HCT 23.7 (L) 08/09/2024 MCV 97 08/09/2024 RDW 24.2 (H) 08/09/2024 PLT 126 (L) 08/09/2024 CMP: Lab Results Component Value Date K 4.9 08/09/2024 CL 101 08/09/2024 CO2 27 08/09/2024 BUN 45 (H) 08/09/2024 GLU 178 (H) 08/09/2024 IMAGING: CT abdomen and pelvis without contrast Result Date: 08/06/2024 EXAM: ABDOMEN AND PELVIS CT WITHOUT CONTRAST CLINICAL INFORMATION: gi bleeding and epigastric and chest pain. TECHNIQUE: Routine unenhanced CT of the abdomen and pelvis was performed utilizing 5 mm axial reconstructions. Coronal and sagittal reformatted images as were obtained and reviewed. Automated exposure control was utilized. COMPARISON: 12/06/2023 FINDINGS: The limited visualized lung bases demonstrates bibasilar atelectasis and/or scarring. Again seen are chronically atrophic kidneys. Calcifications within the renal sam are compatible with a vascular etiology. There are no convincing ureteral stones or evidence for collecting system dilatation in either kidney. Cysts in both kidneys are again noted. The gallbladder is absent. Stable appearance of bilateral adrenal nodules, suspected adenomas. The liver, spleen, and pancreas are unremarkable within the limitations of an unenhanced CT. There are no dilated loops of bowel or evidence for pneumatosis or free air. There is no significant free fluid. Again seen are very severe dense calcifications throughout a normal diameter abdominal aorta. 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 A densely calcified fibroid is again noted. IMPRESSION: 1. No convincing evidence for acute abnormalities in the abdomen and pelvis, within the limitations of an unenhanced CT. 2. Stable appearance of multiple chronic and incidental CT findings, as above. All CT scans at this facility use dose modulation, iterative reconstruction, and/or weight based dosing when appropriate to reduce radiation dose to as low as reasonably achievable. Finalized by Armando Milton MD on 08/06/2024 11:07 PM X-ray chest 1 view Result Date: 08/06/2024 Single view chest XR CHEST 1 VW History: chest pain Comparison: April 21, 2024 Impression: * No consolidation or pleural fluid. No acute findings. Finalized by Elias Nunn MD on 08/06/2024 9:46 PM ASSESSMENT AND PLAN Janay Schilling is a 74 y.o. female who has past medical history of hypertension, end-stage renal disease on hemodialysis, heart failure and was admitted for acute symptomatic anemia with a hemoglobin of 5.9 from the baseline of 11.9 on April 2024. Patient denying any previous endoscopic workup, no colonoscopy or EGD and the CT scan without significant finding. Endorsing fatigue and shortness of breath with chest pain and discomfort and dark stool. Assessment # acute anemia # questionable dark stool report #Upper gastrointestinal bleeding ? Presentation with melena and acute blood loss anemia (Hgb 5.9 ? 8.9 g/dL post-transfusion x2 units PRBCs) in the setting of chronic low-dose aspirin use. ? No overt hematemesis, abdominal pain, or NSAID use. ? Normocytic anemia with no leukocytosis and stable vitals on admission. ? Currently on IV PPI and NPO status. #End-stage renal disease on hemodialysis ? Tri-weekly schedule (Tuesday, , Tuesday) via left upper extremity AV fistula. ? No missed sessions or signs of volume overload on exam. ? BNP 166; trace bilateral LE edema. ? Nephrology consulted for inpatient dialysis coordination. #Diastolic heart failure ? History of diastolic dysfunction, no evidence of acute decompensation or volume overload. Plan trend the hemoglobin and hematocrit daily basis transfuse PRBC accordingly . IV Protonix forty b.i.d. On the light of the patient being hypotensive with other ongoing medical issues and hemoglobin stability with no overt source of GI bleeding since being here in the hospital as well as having episodes of confusion there is no urgent endoscopic intervention from the GI point of respectively. Gastroenterology team will continue to follow The case will be discussed with the attending physician For Questions please contact us at: [facility] 7 am to 5pm weekdays in house 5 pm to 7 am or weekends please contact the flocculator operator to page the fellow conservation science officer Cosigned by King Radford MD at 08/09/2024 1:16 PM EDT Associated attestation - King Radford MD - 08/09/2024 1:16 PM EDT Discussed with fellow, agree with plan. DAILY PROGRESS NOTE IMS-2 This is a progress note for Janay Schilling, a 74 y.o. who has been admitted for 1 midnights DATE OF ADMISSION 08/07/2024 10:56 PM HPI/HOSPITAL COURSE: Janay Schilling is a 74 y.o. female with a PMH significant for ESRD on dialysis Tuesday, and Tuesday via left upper extremity AV fistula, hypertension, hyperlipidemia, diastolic heart failure, and type 2 diabetes who presented with melena over the last 24 hours and of breath over the last 3 days. Patient also had some chest pain that had resolved by the time she was transferred here to [facility]. Patient also reports she had some dizziness on arrival to outside ED. Patient was transferred from [facility] to [facility] for GI eval. Pt's last dialysis session was 08/06 and pt is compliant with outpatient dialysis sessions. Pt is on baseline 2 L of oxygen at home. Pt denies NSAID use and is not on blood thinners, pt is on daily baby aspirin. ED Course: Patient outside ED found the have a hemoglobin of 5.9, and had positive fecal occult blood. EKG did not show any ST changes in troponin 0 at 1 hr both 28. BNP of 166. No acute findings on CT abdomen/pelvis. Vitals are BP 172/59, pulse 76, resp 18, pulse ox 95% on 2 L of O2,On my exam, patient's lung exam is CTAB. Pt has trace edema of LE. At OSH patient elected to have her code status DNRCC, I on admission clarified what her goals of care are and she said that she wanted a full workup, and in case of cardiopulmonary arrest with she would CPR and intubation. Patient says that she is totally not sure that she wants to be full code but this time this is which she chose her code status to be. SUBJECTIVE: Patient was examined bedside. There were no acute events overnight. Patient is lethargic and very sleepy. She states she didn't get to sleep overnight. She is alert and oriented x2, not to year.She denies any chest pain, SOB, or abdominal pain. Patient potassium is elevated. She is planned for HD today. Her facility was contacted together more information regarding her code status and history. Patient's sister who is the POA is also contacted and stated that the patient would like to be DNR. Palliative is consulted. OBJECTIVE: Vital Signs Temp: [36.4 C (97.5 F)-37 C (98.6 F)] 36.7 C (98 F) Pulse: [40-88] 76 Resp: [15-25] 18 BP: (83-187)/(40-82) 138/59 SpO2: [95 %-100 %] 100 % O2 Device: Nasal cannula O2 Flow Rate (L/min): [3 L/min] 3 L/min Weight: Admission weight: 115.6 kg (254 lb 13.6 oz) Wt Readings from Last 3 Encounters: 08/08/24 115.6 kg (254 lb 13.6 oz) 04/23/24 100.8 kg (222 lb 3.6 oz) 04/20/24 104.2 kg (229 lb 12.8 oz) Input/Output: Intake/Output Summary (Last 24 hours) at 08/08/2024 1830 Last data filed at 08/08/2024 1730 Gross per 24 hour Intake 1120 ml Output 1860 ml Net -740 ml Physical Exam Physical Exam Constitutional: Appearance: Normal appearance. HENT: Head: Normocephalic. Mouth/Throat: Pharynx: Oropharynx is clear. Eyes: Extraocular Movements: Extraocular movements intact. Conjunctiva/sclera: Conjunctivae normal. Pupils: Pupils are equal, round, and reactive to light. Cardiovascular: Rate and Rhythm: Regular rhythm. Heart sounds: Normal heart sounds. Pulmonary: Effort: Pulmonary effort is normal. Breath sounds: Normal breath sounds. Abdominal: Tenderness: There is no abdominal tenderness. Musculoskeletal: General: No tenderness. Right lower leg: No edema. Left lower leg: No edema. Neurological: General: No focal deficit present. Mental Status: She is alert. Psychiatric: Mood and Affect: Mood normal. Labs Results from last 7 days Lab Units 08/08/24 0421 08/08/24 0004 08/07/24 1819 08/07/24 0448 08/06/24 2130 WBC X10E9/L 6.4 7.3 -- -- 6.0 HEMOGLOBIN g/dL 7.6* 8.1* 8.9* < > 5.9* HEMATOCRIT % 23.3* 24.7* 26.4* < > 17.8* PLATELETS X10E9/L 124* 129* -- -- 170 < > = values in this interval not displayed. Results from last 7 days Lab Units 08/07/248 APTT sec 25* INR 0.9 Results from last 7 days Lab Units 08/08/24 0929 08/08/24 0421 08/06/24 2130 SODIUM mmol/L -- 137 132* POTASSIUM mmol/L 5.5* 5.5* 4.5 CHLORIDE mmol/L -- 101 97* CO2 mmol/L -- 27 26 BUN mg/dL -- 57* 45* CREATININE mg/dL -- 4.94* 3.86* CALCIUM mg/dL -- 8.5 8.1* PHOSPHORUS mg/dL -- 4.0 -- MAGNESIUM mg/dL -- 2.0 -- Results from last 7 days Lab Units 08/06/24 2130 ALBUMIN g/dL 3.0* TOTAL PROTEIN g/dL 6.0 ALT U/L 15 AST U/L 16 ALK PHOS U/L 81 Results from last 7 days Lab Units 08/08/24 1221 08/08/24 0741 08/08/24 0421 BEDSIDE GLUCOSE mg/dL 117* 116* -- GLUCOSE mg/dL -- -- 99 Lab Results Component Value Date HGBA1C 8.1 (H) 04/21/2024 Results from last 7 days Lab Units 08/06/24 2130 BNP pg/mL 166* Results from last 7 days Lab Units 08/08/24 0004 VITAMIN B 12 pg/mL 392 FOLATE ng/mL 5.4* FERRITIN ng/mL 504* IRON ug/dL 88 TIBC-CALC ONLY DO NOT ORDER ug/dL 242* IRON SATURATION % SATURATION 36 Lab Results Component Value Date WBCU 6 (H) 07/17/2019 SPECIFICGRA 1.025 04/20/2024 LEUKOCYTE Trace (A) 04/20/2024 NITRITEN Negative 04/20/2024 PHNUR 6.5 04/20/2024 PROTEINNUR >=300 (A) 04/20/2024 KETONESNUR Negative 04/20/2024 UROBILINOGEN 0.2 04/20/2024 BLOODHGBNU Trace (A) 04/20/[address] abdomen and pelvis without contrast Result Date: 08/06/2024 EXAM: ABDOMEN AND PELVIS CT WITHOUT CONTRAST CLINICAL INFORMATION: gi bleeding and epigastric and chest pain. TECHNIQUE: Routine unenhanced CT of the abdomen and pelvis was performed utilizing 5 mm axial reconstructions. Coronal and sagittal reformatted images as were obtained and reviewed. Automated exposure control was utilized. COMPARISON: 12/06/2023 FINDINGS: The limited visualized lung bases demonstrates bibasilar atelectasis and/or scarring. Again seen are chronically atrophic kidneys. Calcifications within the renal sam are compatible with a vascular etiology. There are no convincing ureteral stones or evidence for collecting system dilatation in either kidney. Cysts in both kidneys are again noted. The gallbladder is absent. Stable appearance of bilateral adrenal nodules, suspected adenomas. The liver, spleen, and pancreas are unremarkable within the limitations of an unenhanced CT. There are no dilated loops of bowel or evidence for pneumatosis or free air. There is no significant free fluid. Again seen are very severe dense calcifications throughout a normal diameter abdominal aorta. 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 A densely calcified fibroid is again noted. IMPRESSION: 1. No convincing evidence for acute abnormalities in the abdomen and pelvis, within the limitations of an unenhanced CT. 2. Stable appearance of multiple chronic and incidental CT findings, as above. All CT scans at this facility use dose modulation, iterative reconstruction, and/or weight based dosing when appropriate to reduce radiation dose to as low as reasonably achievable. Finalized by Armando Milton MD on 08/06/2024 11:07 PM X-ray chest 1 view Result Date: 08/06/2024 Single view chest XR CHEST 1 VW History: chest pain Comparison: April 21, 2024 Impression: * No consolidation or pleural fluid. No acute findings. Finalized by Elias Nunn MD on 08/06/2024 9:46 PM Cultures Microbiology Results No results found for the last 168 hours. HOSPITAL MEDICATIONS: Scheduled: albumin human, 25 g, intravenous, Once insulin lispro, 1-4 Units, subcutaneous, Nightly insulin lispro, 1-5 Units, subcutaneous, TID with meals levothyroxine, 200 mcg, oral, Daily nystatin, 1 Application, topical, BID pantoprazole, 40 mg, intravenous, Q12H sevelamer, 800 mg, oral, BID with meals sodium chloride, 3 mL, intravenous, Q12H MARC Infusions: dextrose 5 % in water, 100 mL/hr sodium chloride 0.9 %, 20 mL/hr As Needed: acetaminophen calcium carbonate calcium gluconate calcium gluconate calcium gluconate dextrose dextrose 5 % in water dextrose 50 % in water (D50W) [DISCONTINUED] insulin regular AND [DISCONTINUED] dextrose 50 % in water (D50W) AND [DISCONTINUED] dextrose 50 % in water (D50W) AND dextrose 50 % in water (D50W) glucagon (human recombinant) hydrALAZINE ipratropium-albuteroL magnesium sulfate magnesium sulfate melatonin potassium chloride OR potassium chloride OR potassium chloride IV (Adult) sodium chloride sodium chloride sodium chloride 0.9 % ALLERGIES: Allergies Allergen Reactions Amoxicillin Doxycycline ASSESSMENT AND PLAN: Melena concerning for Upper GI bleed Acute on chronic macrocytic anemia, HgB of 5.9 on presentation H and H q12H Transfuse for HgB less than 7, pt received 2 unit pRBC at OSH IV protonix BID Check b12, folate, and iron studies Consult GI, appreciate recommendation. Symptomatic Anemia resulting in shortness of breath and chest pain Resolved after pt was transfused with blood, pt not fluid overloaded on exam and did not miss dialysis sessions EKG without ischemic changes and troponin 0 + 1 hr both 28, will do additional cardiac workup if pt has another episode of chest pain Altered mental status, most likely due to hyperammoniemia vs. Hyperkalemia vs. Hypercarbia Plan for HD today. Will check ammonia, ABG, TSH, and evaluate mentation after. Patient unsure what she wants to do with her code status. Recommend goals of care discussion again in am to talk with patient as she went from DNRCC to FULL code.Pt at time of my exam reported she wanted to be FULL code for now. Chronic Issues: ESRD on HD Consult nephrology for dialysis while inpatient Essential hypertension Hold home BP meds in setting of GI bleed Hyperlipidemia Resume home atorvastatin Diastolic heart failure, not in exacerbation Type 2 diabetes, insulin dependent LCS while inpatient, can resume home lantus at reduced dose once home meds are confirmed Hypothyroidism Resume home levothyroxine DVT prophylaxis: Hold due to possible procedure GI prophylaxis: PPI Diet: Clear liquid Fluids: none Code Status: DCR CC The patient was seen and discussed with attending Dr. Renteria. This note was created with the assistance of speech-recognition program. Every effort was made to ensure accuracy; however, inadvertent computerized stud master/mistress errors may be present. Matt Jimenes MD PGY-1 Internal Medicine Resident 08/08/24 6:30 PM Cosigned by Martin Garber MD at 08/08/2024 9:37 PM EDT Associated attestation - Martin Garber MD - 08/08/2024 9:37 PM EDT Attending Note I have seen and discussed the patient during rounds. I performed, participated and was present during the critical/flores portions of the service. I was directly involved in the management and treatment plan of the patient. I reviewed the resident's note and agree with the findings and plan. Electronically signed by: Martin Garber MD This note is created with the assistance of a speech-recognition program. While intending to generate a document that actually reflects the content of the visit, no guarantees can be provided that every mistake has been identified and corrected by editing. documented in this encounter [facility] 08-10-2024 Progress note Formatting of t his note might be different from the original. DISCHARGE PLANNING NOTE Reviewed in Daily Transition rounds. [place]. Goes to dialysis [facility] dialysis m-w-f. Transition plan remains for patient to return to [place] in [place]. Scial worker to follow and assist with appropriate transition plans. - NAZ Pierce 08/10/24 10:25 AM [facility] 08-10-2024 Plan of care note Problem: Pain Goal: Patient goal is pain score less than 4, able to rest, and participant in treatment plan as appropriate Description: INTERVENTIONS: 1. Encourage patient or legal [place] representative to report early pain and ask for pain medicine when needed 2. Assess pain using appropriate pain scale and include the scale used when documenting 3. Administer analgesics based on type and severity of pain and evaluate response within appropriate time frame 4. Implement non-pharmacological measures as appropriate and evaluate response 5. Consider cultural and social influences on pain and pain management 6. Notify LIP if interventions ineffective or patient reports new pain 7. Monitor vital signs including pulse ox, end-tidal CO2 based on pain intervention 8. Reassess pain per policy 9. Teach patient or legal u.s. representative interventions for comforting Outcome: Progressing Note: Evaluation of progress towards goal: pt will have a pain score less than 4 during shift Problem: Infection Goal: Absence of infection during hospitalization Description: INTERVENTIONS 1. Assess and monitor for signs and symptoms of infection. 2. Monitor lab/diagnostic results. 3. Monitor all insertion sites i.e., indwelling lines, tubes and drains. 4. Monitor endotracheal (as able) and nasal secretions for changes in amount and color. 5. Administer medications as ordered. 6. Instruct and encourage patient and family to use good hand hygiene technique. 7. Identify and instruct patient/patient u.s. representative in use of appropriate isolation precautions for identified infection/symptoms. 8. Provide and discuss with patient/patient u.s. representative on educational MDRO sheet. 9. Encourage and monitor nutritional status daily and consult computer network support specialist if indicated. 10. Implement neutropenic guidelines as needed. Note: Evaluation of progress towards goal: pt will remain free from infection during shift [facility] 08-10-2024 Plan of care note Gastroenterology plan of care note: -hemoglobin is stable, no overt source of GI bleed. -continue to trend the hemoglobin and hematocrit and transfuse PRBC accordingly. -complex medical history with the patient's request to avoid endoscopic workup. -no endoscopic intervention recommendation from GI perspective. -patient could switch to DNR cc -The gastroenterology team will respectfully sign off please do not hesitate to reach out for any further recommendation all questions. [facility] 08-09-2024 Plan of care note Problem: Pain Goal: Patient goal is pain score less than 4, able to rest, and participant in treatment plan as appropriate Description: INTERVENTIONS: 1. Encourage patient or legal u.s. representative to report early pain and ask for pain medicine when needed 2. Assess pain using appropriate pain scale and include the scale used when documenting 3. Administer analgesics based on type and severity of pain and evaluate response within appropriate time frame 4. Implement non-pharmacological measures as appropriate and evaluate response 5. Consider cultural and social influences on pain and pain management 6. Notify LIP if interventions ineffective or patient reports new pain 7. Monitor vital signs including pulse ox, end-tidal CO2 based on pain intervention 8. Reassess pain per policy 9. Teach patient or legal u.s. representative interventions for comforting Outcome: Progressing Note: Evaluation of progress towards goal: Pt assessed for pain via 0-10 pain scale. Pt has PRN analgesics available. Will continue to reassessed Pt's pain appropriately. Problem: Safety Goal: Patient will be injury free during hospitalization Description: INTERVENTIONS: 1. Assess patient's risk for falls and implement fall prevention plan of care per policy 2. Provide and maintain a safe environment 3. Proper use of double Identifiers 4. Medication administration using the 5 rights 5. Hand hygiene 6. Specimens are labeled at the bedside 7. Instruct patient/ patient u.s. representative about use of safety devices 8. Include patient/ patient u.s. representative in decisions related to safety Outcome: Progressing Note: Evaluation of progress towards goal: Patient safety maintained. Hourly rounding and fall risk precautions maintained. Problem: Infection Goal: Absence of infection during hospitalization Description: INTERVENTIONS 1. Assess and monitor for signs and symptoms of infection. 2. Monitor lab/diagnostic results. 3. Monitor all insertion sites i.e., indwelling lines, tubes and drains. 4. Monitor endotracheal (as able) and nasal secretions for changes in amount and color. 5. Administer medications as ordered. 6. Instruct and encourage patient and family to use good hand hygiene technique. 7. Identify and instruct patient/patient u.s. representative in use of appropriate isolation precautions for identified infection/symptoms. 8. Provide and discuss with patient/patient u.s. representative on educational MDRO sheet. 9. Encourage and monitor nutritional status daily and consult computer network support specialist if indicated. 10. Implement neutropenic guidelines as needed. Outcome: Progressing Note: Evaluation of progress towards goal: Patient evaluated for S/S of infection. Patients vital signs, labs, and diagnostic results are being monitored each shift. Patient remains free from infection at this time. Problem: Knowledge Deficit Goal: Patient/patient u.s. representative demonstrates understanding of disease process, treatment plan, medications, and discharge instructions Description: INTERVENTIONS 1. Complete learning assessment and assess knowledge base 2. Provide teaching at level of understanding 3. Provide teaching via preferred learning method(s) Outcome: Progressing Note: Evaluation of progress towards goal: Patient glucose maintained within range per use of scheduled medications. Will continue to assess and treat as appropriate. Problem: Discharge Planning Goal: Discharge to post-acute care, other facility, or home with appropriate resources Description: Patient's goal is: LTC INTERVENTIONS 1. Conduct assessment to determine patient/family and health care team treatment goals, and need for post-acute services based on payer coverage, community resources, and patient preferences, and barriers to discharge 2. Coordinate with Social work, Care Navigation, and Utilization Review to arrange appropriate level of services according to patient's needs based on patient preference and payer coverage in collaboration with the physician and health care team 3. Address psychosocial, clinical, and financial barriers to discharge as identified in assessment in conjunction with the patient/family and health care team 4. Consult appropriate ancillary services (i.e.. PT/OT/ST, etc) as needed 5. Communicate with and update the patient/family, physician, and health care team regarding progress on the discharge plan 6. Identify discharge learning needs (meds, wound care, etc). 7. Arrange for needed discharge transportation as appropriate Outcome: Progressing Note: Evaluation of progress towards goal: Patient discharge criteria progressing. Will continue to assess for discharge needs. Problem: Glucose Imbalance Goal: Clinical indication of glucose balance is achieved Description: Patient's goal is: maintain glucose balance WDL INTERVENTIONS 1. Monitor blood glucose levels as ordered 2. Administer medications as ordered 3. Notify physician of ineffective treatment plan Outcome: Progressing Note: Evaluation of progress towards goal: Patient glucose maintained within range per use of scheduled medications. Will continue to assess and treat as appropriate. Problem: Potential for Compromised Skin Integrity Goal: Skin integrity is maintained or improved Description: Patient's goal is: maintain skin integrity and have no new breakdown for duration of stay. INTERVENTIONS 1. Perform initial skin assessment on admission and as needed 2. Turn patient every 2 hours and PRN 3. Relieve pressure to bony prominences 4. Avoid shearing 5. Keep skin clean and dry 6. Alternate a full bath with partial baths for elderly 7. Apply lotion/moisturizer on skin 8. Monitor patient's hygiene practices 9. Float heels 10. Collaborate with interdisciplinary team and initiate plans and interventions as needed Outcome: Progressing Note: Evaluation of progress towards goal: Patient skin integrity maintained. Will continue to assess and treat as appropriate. Problem: Urinary Incontinence Goal: Perineal skin integrity is maintained or improved Description: INTERVENTIONS 1. Assess genitourinary system, perineal skin, labs (urinalysis), and history of incontinence to include past management, aggravating, and alleviating factors 2. Keep skin clean and dry 3. Apply skin protectant 4. Develop skin care regimen 5. Provide privacy when changing patients incontinence device to maintain their dignity 6. Consider placing an indwelling catheter 7. Collaborate with interdisciplinary team and initiate plans and interventions as needed Outcome: Progressing Note: Evaluation of progress towards goal: Patient skin integrity maintained. Will continue to assess and treat as appropriate. Problem: Moderate - High Risk Fall Score Description: Mejia Fall Score of =/> 25 or indicated by [facility] Assessment Goal: Patient should be free from fall Description: Interventions: 1. [place] to environment 2. Hourly rounds addressing the 4 P's (Pain, Positioning, Possessions, Potty) 3. Clear area of hazards (spills, clutter, electrical cords, unnecessary equipment) 4. Place equipment (bed & TV controls, call light, phone, urinal) within reach 5. Encourage patient to wear glasses and hearing aides as appropriate 6. Maintain bed in lowest position 7. Lock wheels on bed/wheelchair 8. Provide adequate lighting, including night light 9. Assess need for additional bedding, food/fluids, pain med's prior to sleep/routinely 10. Provide gripper slippers or personal non-skid footwear 11. Teach patient and patient u.s. representative to maintain environment for safety and engage in all aspects of fall prevention program 12. Remind patient to call for help before getting out of bed 13. Initiate bed/chair/exit alarms supportive devices as appropriate, (chair wedge, no-skid floor mat, raised edge mattress, hip protectors) 14. Locate patient bed assignment for optimal visualization 15. Evaluate and identify Safe Patient Handling Equipment needs 16. Provide supervision when out of bed or chair 17. Utilize gait belt as needed to assist with ambulation 18. Place adaptive equipment (cane, walker) within reach 19. Request patient u.s. representative bring adaptive equipment/mobility aids from home or obtain and provide as needed 20. Consult pharmacy regarding effects of med's affecting mobility, cognition, and alternatives 21. Obtain physician order for PT if risk factors associated with mobility are present 22. Obtain physician order for OT as appropriate 23. Utilize diversional activities 24. Educate patient and patient u.s. representative how to maintain a safe environment during visitation times (notify nurse prior to leaving bedside) 25. Consider appropriateness of medical or non-medical pathologist 26. Set up voiding schedule as appropriate (every 2 hours) Outcome: Progressing Note: Evaluation of progress towards goal: Pt will be free from falls this admission. High risk Fall scale interventions in place. [facility] 08-09-2024 Consult note Formatting of th is note is different from the original. Images from the original note were not included. [facility] NOTE 08/09/2024 Patient Name: Janay Schilling : 1950 Advanced Directives: @ADVDIR@ Code Status: Code Status Information Code Status Full Code Reason for Consultation: Palliative medicine consult requested by Martin Garber MD for Janay Schilling who is 74 y.o. to discuss goals of care, especially in regards to code status. HPI: Janay Schilling is a 74 y.o. who was admitted on 08/07/2024 for evaluation of melena and SOB. She was [place] from [place] where she resides in am [facility] and attends HD three times a week. On presentation to outside hospital she had hemoglobin of 5.9 and positive. OB in stool. Cardiac workup negative for acute event. The patient is on record at [facility] to have code status established as DNRCC. Also on record was [facility] sister Марина Sheridan (on file). There has been some confusion in regards to code status as noted in the chart. I spoke to sister by phone and to patient today. Please see PC encounter below Past Medical History: Diagnosis Date Anemia, unspecified Cellulitis Cellulitis, unspecified CHF (congestive heart failure) ([facility]) Chronic kidney disease, unspecified Depression Diabetes mellitus type 2, controlled ([facility]) Difficulty walking DM (diabetes mellitus) ([facility]) MALHOTRA (dyspnea on exertion) Heart failure, systolic ([facility]) Hyperlipidemia Hypertension Hypothyroidism Infectious viral hepatitis Muscle weakness (generalized) Obesity Obstructive chronic bronchitis without exacerbation ([facility]) Post-COVID syndrome resolved Stroke ([facility]) Past Surgical History: Procedure Laterality Date APPENDECTOMY CHOLECYSTECTOMY TONSILLECTOMY Allergy: Amoxicillin and Doxycycline Prior to Admission medications Medication Sig Start Date End Date Taking? Authorizing Provider acetaminophen (TYLENOL) 500 mg tablet Take 1 tablet (500 mg total) by mouth every 4 (four) hours as needed for pain. Yes Not In System Ref Prov albuterol (PROVENTIL HFA;VENTOLIN HFA) 90 mcg/actuation inhaler Inhale 2 puffs every 6 (six) hours as needed for wheezing. Yes Not In System Ref Prov amLODIPine (NORVASC) 5 mg tablet Take 1 tablet (5 mg total) by mouth in the morning. Patient taking differently: Take 0.5 tablets (2.5 mg total) by mouth in the morning. Yes Not In System Ref Prov aspirin 81 mg Take 1 tablet (81 mg total) by mouth in the morning. 04/23/24 Yes IRINA Avilez atorvastatin (LIPITOR) 40 mg tablet Take 2 tablets (80 mg total) by mouth in the morning. Yes Not In System Ref Prov bumetanide (BUMEX) 0.5 mg tablet Take 1 tablet (0.5 mg total) by mouth daily. 09/03/23 Yes IRINA Villalobos carvediloL (COREG) 6.25 mg tablet Take 1 tablet (6.25 mg total) by mouth once daily at bedtime. 04/23/24 Yes IRINA Avilez cetirizine (ZyrTEC) 10 mg tablet Take 1 tablet (10 mg total) by mouth in the morning. Yes Not In System Ref Prov docusate sodium (COLACE) 100 mg capsule Take 1 capsule (100 mg total) by mouth in the morning and 1 capsule (100 mg total) before bedtime. Yes Not In System Ref Prov dulaglutide (TRULICITY) 3 mg/0.5 mL pen injector Inject 0.5 mL under the skin once a week Indications: type 2 diabetes mellitus. Every Tuesday Yes Not In System Ref Prov ergocalciferol (DRISDOL) 1,250 mcg (50,000 unit) capsule Take 1 capsule (50,000 Units total) by mouth in the morning. Give 1 capsule by mouth one time daily starting on the and ending on the every month.. Yes Not In System Ref Prov fluticasone furoate-vilanteroL (BREO ELLIPTA) 100-25 mcg/dose blister with device Inhale 1 puff in the morning. Indications: bronchospasm prevention with COPD. Yes Not In System Ref Prov isosorbide mononitrate (IMDUR) 30 mg 24 hr tablet Take 1 tablet (30 mg total) by mouth daily. 07/19/19 Yes MD SOLEDAD Agrawal U-100 INSULIN 100 unit/mL (3 mL) insulin pen Inject 12 Units under the skin in the morning. 06/26/23 Yes Not In System Ref Prov levothyroxine (SYNTHROID, LEVOTHROID) 200 MCG tablet Take 1 tablet (200 mcg total) by mouth in the morning. 04/24/24 Yes IRINA Avilez magnesium hydroxide 400 mg/5 mL suspension Take 30 mL by mouth nightly as needed (constipation). Yes Not In System Ref Prov midodrine (PROAMATINE) 10 mg tablet Take 2 tablets (20 mg total) by mouth every morning. Tuesday, Tuesday, Tuesday for hypotension with dialysis. Yes Not In System Ref Prov polyethylene glycol (MIRALAX) 17 gram/dose powder Take 17 g by mouth in the morning. Yes Not In System Ref Prov sennosides-docusate sodium (SENNA WITH DOCUSATE SODIUM) 8.6-50 mg Take 1 tablet by mouth in the morning and 1 tablet before bedtime. Yes Not In System Ref Prov sertraline (ZOLOFT) 100 mg tablet Take 2 tablets (200 mg total) by mouth in the morning. Yes Not In System Ref Prov sevelamer (RENVELA) 800 mg tablet Take 1 tablet (800 mg total) by mouth in the morning and 1 tablet (800 mg total) at noon and 1 tablet (800 mg total) in the evening. Take with meals. Yes Not In System Ref Prov tenapanor (XPHOZAH) 20 mg tablet Take by mouth. Yes Not In System Ref Prov guaiFENesin (MUCINEX) 600 mg tablet extended release 12hr Take 1 tablet (600 mg total) by mouth every 12 (twelve) hours as needed (congestion). Not In System Ref Prov losartan (COZAAR) 100 mg tablet Take 1 tablet (100 mg total) by mouth in the morning. Patient not taking: Reported on 08/07/2024 04/24/24 Roopa Domniguez APRN-EUGENIA vitamin B [id number]-zinc cit (DIALYVITE 800 WITH ZINC 15) 0.8-15 mg tablet Take 1 tablet by mouth every morning. Not In System Ref Prov Scheduled Medications albumin human, 25 g, intravenous, Once B complex-vitamin C-folic acid, 1 tablet, oral, Daily insulin lispro, 1-4 Units, subcutaneous, Nightly insulin lispro, 1-5 Units, subcutaneous, TID with meals levothyroxine, 200 mcg, oral, Daily nystatin, 1 Application, topical, BID pantoprazole, 40 mg, intravenous, Q12H sennosides-docusate sodium, 2 tablet, oral, Nightly sertraline, 100 mg, oral, Daily sodium chloride, 3 mL, intravenous, Q12H MARC Infusion Medications PRN Medications acetaminophen calcium carbonate calcium gluconate calcium gluconate calcium gluconate dextrose dextrose 50 % in water (D50W) glucagon (human recombinant) hydrALAZINE ipratropium-albuteroL magnesium sulfate magnesium sulfate melatonin potassium chloride OR potassium chloride OR potassium chloride IV (Adult) sodium chloride sodium chloride SOCIAL HISTORY: Living arrangement: at [facility] Social supports: staff Employment/work history: not known Marital status: not Children: no Family History Problem Relation Age of Onset Heart disease Mother Kidney disease Mother Alzheimer's disease Sister Hypertension Sister Kidney disease Brother Breast cancer Neg Hx Review of Systems: Difficult to assess due to somnolence, however she was able to report to me today that she was having a headache (caused by cool air blowing on her). Denies other pain. No SOB. No abdominal pain. Physical Exam: BP 175/57 Pulse 64 Temp 36.6 C (97.8 F) (Axillary) Resp 18 Ht 162.6 cm (5' 4 ) Wt 104.6 kg (230 lb 9.6 oz) SpO2 100% BMI 39.58 kg/m No intake or output data in the 24 hours ending 08/09/241922 Obese, female. Pale. Respirations non-labored. Heart tones regular with [place]. Abdomen obese, nontender. Affect flat. Patient easily fell asleep during our conversation. When awakened she answered most questions appropriately with short answers before falling asleep again. She had little insight into recent events. She stated Isreal was no longer her POA because she has dementia and that nicole is now her POA. (See below) Healthcare surrogate: Марина Sheridan, on file Code status: DNRCC confirmed Living Will?: yes PALLIATIVE CARE ASSESSMENT: ESRD. Patient reports that she tolerates HD well and that it gives her QOL Anemia and suspicion for GI blood loss. I spoke to Isreal/DEEPA. It is her opinion that patient would not want endoscopy. She bases this on the fact that patient has declined these interventions in the past and that she generally does not want to go through procedures. Chronic co-morbidities including DM, hypothyroidism, diastolic heart failure, hypertension. Possible depression. Patient's sister raised the possibility that patient has been feeling depressed. I informed her that patient is on sertraline at the [facility] and advised her to speak to staff regarding need for assessment of mediation change. Encounter for palliative care. At this time I do not feel the patient has capacity to make her own medical decisions. I base that on her inability to maintain wakefulness and her confusion regarding the status of her POA. (Марина does not have dementia and the ECF assures me there is no shirlene involved in her care.). From phone conversation, Isreal appears to know patient well and have her best interest in mind. It is POA opinion that patient would want to maintain DNRCC and to NOT have endoscopy. RECOMMENDATION/PLAN: DNRCC No plan for endoscopy. POA will reconsider if hemoglobin unstable. POA to discuss depression treatment with ECF. Thank you for your consultation and allowing us to participate in the care of Janay Schilling and please do not hesitate to call us with any questions. call box wirer practitioner: [phone] Electronically signed by: Chey Ruiz MD Advance Care Planning A separately identifiable advance care planning discussion was performed on 08/09/24 . Discussion was held with DPOA[facility] Марина Arvin . Permission to perform ACP services was obtained and patient/family engaged in conversation. See Palliative Care Discussion in regards to content of discussion. I spent 16 minutes providing advance care planning services to the patient/family today, separate from today's symptom management visit. [id number] [facility] Work Phone: 08-09-2024 Consult note Formatting of th is note is different from the original. Images from the original note were not included. [facility] CONSULT NOTE 08/09/2024 Patient Name: Janay Schilling : 1950 Advanced Directives: @ADVDIR@ Code Status: Code Status Information Code Status Full Code Reason for Consultation: Palliative medicine consult requested by Martin Garber MD for Janay Schilling who is 74 y.o. to discuss goals of care, especially in regards to code status. HPI: Janay Schilling is a 74 y.o. who was admitted on 08/07/2024 for evaluation of melena and SOB. She was transferred from [place] where she resides in am [facility] and attends HD three times a week. On presentation to outside hospital she had hemoglobin of 5.9 and positive. OB in stool. Cardiac workup negative for acute event. The patient is on record at [facility] to have code status established as DNRCC. Also on record was [facility] sister Марина Sheridan (on file). There has been some confusion in regards to code status as noted in the chart. I spoke to sister by phone and to patient today. Please see PC encounter below Past Medical History: Diagnosis Date Anemia, unspecified Cellulitis Cellulitis, unspecified CHF (congestive heart failure) ([facility] [place] [place] Chronic kidney disease, unspecified Depression Diabetes mellitus type 2, controlled ([facility] [place] [place]) Difficulty walking DM (diabetes mellitus) ([facility] [place] [place]) MALHOTRA (dyspnea on exertion) Heart failure, systolic ([facility] [place] [place]) Hyperlipidemia Hypertension Hypothyroidism Infectious viral hepatitis Muscle weakness (generalized) Obesity Obstructive chronic bronchitis without exacerbation ([facility] [place] [place]) Post-COVID syndrome resolved Stroke ([facility] [place] [place]) Past Surgical History: Procedure Laterality Date APPENDECTOMY CHOLECYSTECTOMY TONSILLECTOMY Allergy: Amoxicillin and Doxycycline Prior to Admission medications Medication Sig Start Date End Date Taking? Authorizing Provider acetaminophen (TYLENOL) 500 mg tablet Take 1 tablet (500 mg total) by mouth every 4 (four) hours as needed for pain. Yes Not In System Ref Prov albuterol (PROVENTIL HFA;VENTOLIN HFA) 90 mcg/actuation inhaler Inhale 2 puffs every 6 (six) hours as needed for wheezing. Yes Not In System Ref Prov amLODIPine (NORVASC) 5 mg tablet Take 1 tablet (5 mg total) by mouth in the morning. Patient taking differently: Take 0.5 tablets (2.5 mg total) by mouth in the morning. Yes Not In System Ref Prov aspirin 81 mg Take 1 tablet (81 mg total) by mouth in the morning. 04/23/24 Yes IRINA Avilez atorvastatin (LIPITOR) 40 mg tablet Take 2 tablets (80 mg total) by mouth in the morning. Yes Not In System Ref Prov bumetanide (BUMEX) 0.5 mg tablet Take 1 tablet (0.5 mg total) by mouth daily. 09/03/23 Yes IRINA Villalobos carvediloL (COREG) 6.25 mg tablet Take 1 tablet (6.25 mg total) by mouth once daily at bedtime. 04/23/24 Yes IRINA Avilez cetirizine (ZyrTEC) 10 mg tablet Take 1 tablet (10 mg total) by mouth in the morning. Yes Not In System Ref Prov docusate sodium (COLACE) 100 mg capsule Take 1 capsule (100 mg total) by mouth in the morning and 1 capsule (100 mg total) before bedtime. Yes Not In System Ref Prov dulaglutide (TRULICITY) 3 mg/0.5 mL pen injector Inject 0.5 mL under the skin once a week Indications: type 2 diabetes mellitus. Every Tuesday Yes Not In System Ref Prov ergocalciferol (DRISDOL) 1,250 mcg (50,000 unit) capsule Take 1 capsule (50,000 Units total) by mouth in the morning. Give 1 capsule by mouth one time daily starting on the and ending on the every month.. Yes Not In System Ref Prov fluticasone furoate-vilanteroL (BREO ELLIPTA) 100-25 mcg/dose blister with device Inhale 1 puff in the morning. Indications: bronchospasm prevention with COPD. Yes Not In System Ref Prov isosorbide mononitrate (IMDUR) 30 mg 24 hr tablet Take 1 tablet (30 mg total) by mouth daily. 07/19/19 Yes MD RADHA AgrawalUS SOLJANNAR U-100 INSULIN 100 unit/mL (3 mL) insulin pen Inject 12 Units under the skin in the morning. 06/26/23 Yes Not In System Ref Prov levothyroxine (SYNTHROID, LEVOTHROID) 200 MCG tablet Take 1 tablet (200 mcg total) by mouth in the morning. 04/24/24 Yes Roopa Dominguez APRN-EUGENIA magnesium hydroxide 400 mg/5 mL suspension Take 30 mL by mouth nightly as needed (constipation). Yes Not In System Ref Prov midodrine (PROAMATINE) 10 mg tablet Take 2 tablets (20 mg total) by mouth every morning. Tuesday, Tuesday, Tuesday for hypotension with dialysis. Yes Not In System Ref Prov polyethylene glycol (MIRALAX) 17 gram/dose powder Take 17 g by mouth in the morning. Yes Not In System Ref Prov sennosides-docusate sodium (SENNA WITH DOCUSATE SODIUM) 8.6-50 mg Take 1 tablet by mouth in the morning and 1 tablet before bedtime. Yes Not In System Ref Prov sertraline (ZOLOFT) 100 mg tablet Take 2 tablets (200 mg total) by mouth in the morning. Yes Not In System Ref Prov sevelamer (RENVELA) 800 mg tablet Take 1 tablet (800 mg total) by mouth in the morning and 1 tablet (800 mg total) at noon and 1 tablet (800 mg total) in the evening. Take with meals. Yes Not In System Ref Prov tenapanor (XPHOZAH) 20 mg tablet Take by mouth. Yes Not In System Ref Prov guaiFENesin (MUCINEX) 600 mg tablet extended release 12hr Take 1 tablet (600 mg total) by mouth every 12 (twelve) hours as needed (congestion). Not In System Ref Prov losartan (COZAAR) 100 mg tablet Take 1 tablet (100 mg total) by mouth in the morning. Patient not taking: Reported on 08/07/2024 04/24/24 Roopa Dominguez, SIMULATION SOFTWARE ENGINEER-[employer]AGE [employer]IDER vitamin B iztyyv-I-GS-zinc cit (DIALYVITE 800 WITH ZINC 15) 0.8-15 mg tablet Take 1 tablet by mouth every morning. Not In System Ref Prov Scheduled Medications albumin human, 25 g, intravenous, Once B complex-vitamin C-folic acid, 1 tablet, oral, Daily insulin lispro, 1-4 Units, subcutaneous, Nightly insulin lispro, 1-5 Units, subcutaneous, TID with meals levothyroxine, 200 mcg, oral, Daily nystatin, 1 Application, topical, BID pantoprazole, 40 mg, intravenous, Q12H sennosides-docusate sodium, 2 tablet, oral, Nightly sertraline, 100 mg, oral, Daily sodium chloride, 3 mL, intravenous, Q12H MARC Infusion Medications PRN Medications acetaminophen calcium carbonate calcium gluconate calcium gluconate calcium gluconate dextrose dextrose 50 % in water (D50W) glucagon (human recombinant) hydrALAZINE ipratropium-albuteroL magnesium sulfate magnesium sulfate melatonin potassium chloride OR potassium chloride OR potassium chloride IV (Adult) sodium chloride sodium chloride SOCIAL HISTORY: Living arrangement: at [facility] Social supports: staff Employment/work history: not known Marital status: not Children: no Family History Problem Relation Age of Onset Heart disease Mother Kidney disease Mother Alzheimer's disease Sister Hypertension Sister Kidney disease Brother Breast cancer Neg Hx Review of Systems: Difficult to assess due to somnolence, however she was able to report to me today that she was having a headache (caused by cool air blowing on her). Denies other pain. No SOB. No abdominal pain. Physical Exam: BP 175/57 Pulse 64 Temp 36.6 C (97.8 F) (Axillary) Resp 18 Ht 162.6 cm (5' 4 ) Wt 104.6 kg (230 lb 9.6 oz) SpO2 100% BMI 39.58 kg/m No intake or output data in the 24 hours ending 08/09/241922 Obese, female. Pale. Respirations non-labored. Heart tones regular with FRANCHESKA. Abdomen obese, nontender. Affect flat. Patient easily fell asleep during our conversation. When awakened she answered most questions appropriately with short answers before falling asleep again. She had little insight into recent events. She stated Isreal was no longer her POA because she has dementia and that nicole is now her POA. (See below) Healthcare surrogate: Марина Sheridan, on file Code status: DNRCC confirmed Living Will?: yes PALLIATIVE CARE ASSESSMENT: ESRD. Patient reports that she tolerates HD well and that it gives her QOL Anemia and suspicion for GI blood loss. I spoke to Isreal/POA. It is her opinion that patient would not want endoscopy. She bases this on the fact that patient has declined these interventions in the past and that she generally does not want to go through procedures. Chronic co-morbidities including DM, hypothyroidism, diastolic heart failure, hypertension. Possible depression. Patient's sister raised the possibility that patient has been feeling depressed. I informed her that patient is on sertraline at the [facility] and advised her to speak to staff regarding need for assessment of mediation change. Encounter for palliative care. At this time I do not feel the patient has capacity to make her own medical decisions. I base that on her inability to maintain wakefulness and her confusion regarding the status of her POA. (Марина does not have dementia and the [facility] assures me there is no shirlene involved in her care.). From phone conversation, Isreal appears to know patient well and have her best interest in mind. It is POA opinion that patient would want to maintain DNRCC and to NOT have endoscopy. RECOMMENDATION/PLAN: DNRCC No plan for endoscopy. POA will reconsider if hemoglobin unstable. POA to discuss depression treatment with [facility]. Thank you for your consultation and allowing us to participate in the care of Janay Schilling and please do not hesitate to call us with any questions. call box wirer practitioner: [phone] Electronically signed by: Chey Ruiz MD Advance Care Planning A separately identifiable advance care planning discussion was performed on 08/09/24 . Discussion was held with DPOA[facility] Марина Sheridan . Permission to perform ACP services was obtained and patient/family engaged in conversation. See Palliative Care Discussion in regards to content of discussion. I spent 16 minutes providing advance care planning services to the patient/family today, separate from today's symptom management visit. [id number] Associated Order(s): IP CONSULT TO NEPHROLOGY Images from the original note were not included. [facility] Jacques Mccall, [facility] Nephrology Consultation note Patient Name: Janay Schilling : 1950 Date of Service: 08/08/24 PCP: DEENA PERKINS MD Attending Physician: Martin Garber MD Admission Date: 08/07/2024 Length of stay: LOS: 1 day Chief complaint No chief complaint on file. Reason for Consult: ESRD on HD Assessment and Plan 74-year-old female with a past medical history significant for end-stage renal disease on hemodialysis (//Tue via left upper extremity AV fistula), hypertension, type 2 diabetes mellitus, diastolic heart failure, hypothyroidism, hyperlipidemia, and prior stroke, presented with melena and progressive dyspnea for 3 days. Initial hemoglobin was 5.9 g/dL, prompting transfer from an outside facility. She also reported dizziness and a transient episode of chest discomfort. No hematemesis, abdominal pain, nausea, vomiting, or NSAID use. Chronic aspirin use noted. She was hemodynamically stable on arrival and received 2 units of PRBCs with improvement of Hgb to 8.9 g/dL. Labs showed normocytic anemia, INR 0.9, normal aPTT, and no leukocytosis. CT abdomen/pelvis revealed atrophic kidneys with cysts and severe aortic calcification. BNP 166, chest X-ray and EKG unremarkable. 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 GI on board History of CHF History of DM History of Hypothyroidism Obesity / CATARINO Plan We will plan for hemodialysis today Resume Home anti HTN meds as able CHINA Q weekly Check Iron studies Check PTH Vit D HD diet, 1400 ml/24 hr fluid restriction Dose all meds to GFR < 10 Thank you for this consultation, we will follow along with you regarding care of this patient while the patient is here in the hospital, please call if you have any questions or concerns. MIKE MASTERSON MD on 08/08/2024 at 3:02 PM [facility]. Ph: [phone] History of presenting illness 74-year-old female with a past medical history significant for end-stage renal disease on hemodialysis (//Tue via left upper extremity AV fistula), hypertension, type 2 diabetes mellitus, diastolic heart failure, hypothyroidism, hyperlipidemia, and prior stroke, presented with melena and progressive dyspnea for 3 days. Initial hemoglobin was 5.9 g/dL, prompting transfer from an outside facility. She also reported dizziness and a transient episode of chest discomfort. No hematemesis, abdominal pain, nausea, vomiting, or NSAID use. Chronic aspirin use noted. She was hemodynamically stable on arrival and received 2 units of PRBCs with improvement of Hgb to 8.9 g/dL. Labs showed normocytic anemia, INR 0.9, normal aPTT, and no leukocytosis. CT abdomen/pelvis revealed atrophic kidneys with cysts and severe aortic calcification. BNP 166, chest X-ray and EKG unremarkable. Nephrology was consulted for ongoing dialysis Past Medical History: Diagnosis Date Anemia, unspecified Cellulitis Cellulitis, unspecified CHF (congestive heart failure) ([facility]) Chronic kidney disease, unspecified Depression Diabetes mellitus type 2, controlled ([facility]) Difficulty walking DM (diabetes mellitus) ([facility]) MALHOTRA (dyspnea on exertion) Heart failure, systolic ([facility]) Hyperlipidemia Hypertension Hypothyroidism Infectious viral hepatitis Muscle weakness (generalized) Obesity Obstructive chronic bronchitis without exacerbation (CMS-HCC) Post-COVID syndrome resolved Stroke (CMS-HCC) Past Surgical History: Procedure Laterality Date APPENDECTOMY CHOLECYSTECTOMY TONSILLECTOMY Family History Problem Relation Age of Onset Heart disease Mother Kidney disease Mother Alzheimer's disease Sister Hypertension Sister Kidney disease Brother Breast cancer Neg Hx Social History Socioeconomic History Marital status: Single Spouse name: Not on file Number of children: Not on file Years of education: Not on file Highest education level: Not on file Occupational History Not on file Tobacco Use Smoking status: Former Current packs/day: 0.00 Average packs/day: 1 pack/day for 53.9 years (53.9 ttl pk-yrs) Types: Cigarettes Start date: 1969 Quit date: 04/01/2023 Years since quittin.3 Smokeless tobacco: Never Vaping Use Vaping status: Never Used Substance and Sexual Activity Alcohol use: No Drug use: No Sexual activity: Defer Other Topics Concern Caffeine Use Yes Social History Narrative Not on file Social Drivers of Health Financial Resource Strain: Not on file Food Insecurity: No Food Insecurity (08/06/2024) Hunger Screening Food Insecurity - Worry: Never True Food Insecurity - Inability: Never True Transportation Needs: No Transportation Needs (04/21/2024) PRAPARE - Transportation Lack of Transportation (Medical): No Lack of Transportation (Non-Medical): No Physical Activity: Not on file Stress: Not on file Social Connections: Not on file Interpersonal Safety: Not At Risk (04/21/2024) Humiliation, Afraid, Rape, and Kick questionnaire Fear of Current or Ex-Partner: No Emotionally Abused: No Physically Abused: No Sexually Abused: No Housing Instability: Low Risk (04/21/2024) Housing Instability Housing Instability: No Prior to Admission medications Medication Sig Start Date End Date Taking? Authorizing Provider acetaminophen (TYLENOL) 500 mg tablet Take 1 tablet (500 mg total) by mouth every 4 (four) hours as needed for pain. Yes Not In System Ref Prov albuterol (PROVENTIL HFA;VENTOLIN HFA) 90 mcg/actuation inhaler Inhale 2 puffs every 6 (six) hours as needed for wheezing. Yes Not In System Ref Prov amLODIPine (NORVASC) 5 mg tablet Take 1 tablet (5 mg total) by mouth in the morning. Patient taking differently: Take 0.5 tablets (2.5 mg total) by mouth in the morning. Yes Not In System Ref Prov aspirin 81 mg Take 1 tablet (81 mg total) by mouth in the morning. 04/23/24 Yes IRINA Avilez atorvastatin (LIPITOR) 40 mg tablet Take 2 tablets (80 mg total) by mouth in the morning. Yes Not In System Ref Prov bumetanide (BUMEX) 0.5 mg tablet Take 1 tablet (0.5 mg total) by mouth daily. 09/03/23 Yes IRINA Villalobos carvediloL (COREG) 6.25 mg tablet Take 1 tablet (6.25 mg total) by mouth once daily at bedtime. 04/23/24 Yes IRINA Avilez cetirizine (ZyrTEC) 10 mg tablet Take 1 tablet (10 mg total) by mouth in the morning. Yes Not In System Ref Prov docusate sodium (COLACE) 100 mg capsule Take 1 capsule (100 mg total) by mouth in the morning and 1 capsule (100 mg total) before bedtime. Yes Not In System Ref Prov dulaglutide (TRULICITY) 3 mg/0.5 mL pen injector Inject 0.5 mL under the skin once a week Indications: type 2 diabetes mellitus. Every Tuesday Yes Not In System Ref Prov ergocalciferol (DRISDOL) 1,250 mcg (50,000 unit) capsule Take 1 capsule (50,000 Units total) by mouth in the morning. Give 1 capsule by mouth one time daily starting on the and ending on the every month.. Yes Not In System Ref Prov fluticasone furoate-vilanteroL (BREO ELLIPTA) 100-25 mcg/dose blister with device Inhale 1 puff in the morning. Indications: bronchospasm prevention with COPD. Yes Not In System Ref Prov isosorbide mononitrate (IMDUR) 30 mg 24 hr tablet Take 1 tablet (30 mg total) by mouth daily. 07/19/19 Yes MD SOLEDAD Agrawal U-100 INSULIN 100 unit/mL (3 mL) insulin pen Inject 12 Units under the skin in the morning. 06/26/23 Yes Not In System Ref Prov levothyroxine (SYNTHROID, LEVOTHROID) 200 MCG tablet Take 1 tablet (200 mcg total) by mouth in the morning. 04/24/24 Yes IRINA Avilez magnesium hydroxide 400 mg/5 mL suspension Take 30 mL by mouth nightly as needed (constipation). Yes Not In System Ref Prov midodrine (PROAMATINE) 10 mg tablet Take 2 tablets (20 mg total) by mouth every morning. Tuesday, Tuesday, Tuesday for hypotension with dialysis. Yes Not In System Ref Prov polyethylene glycol (MIRALAX) 17 gram/dose powder Take 17 g by mouth in the morning. Yes Not In System Ref Prov sennosides-docusate sodium (SENNA WITH DOCUSATE SODIUM) 8.6-50 mg Take 1 tablet by mouth in the morning and 1 tablet before bedtime. Yes Not In System Ref Prov sertraline (ZOLOFT) 100 mg tablet Take 2 tablets (200 mg total) by mouth in the morning. Yes Not In System Ref Prov sevelamer (RENVELA) 800 mg tablet Take 1 tablet (800 mg total) by mouth in the morning and 1 tablet (800 mg total) at noon and 1 tablet (800 mg total) in the evening. Take with meals. Yes Not In System Ref Prov tenapanor (XPHOZAH) 20 mg tablet Take by mouth. Yes Not In System Ref Prov guaiFENesin (MUCINEX) 600 mg tablet extended release 12hr Take 1 tablet (600 mg total) by mouth every 12 (twelve) hours as needed (congestion). Not In System Ref Prov losartan (COZAAR) 100 mg tablet Take 1 tablet (100 mg total) by mouth in the morning. Patient not taking: Reported on 08/07/2024 04/24/24 IRINA Avilez vitamin B idejwr-N-HO-zinc cit (DIALYVITE 800 WITH ZINC 15) 0.8-15 mg tablet Take 1 tablet by mouth every morning. Not In System Ref Prov Allergies Allergen Reactions Amoxicillin Doxycycline Review Of Systems: ROS could not be done due to clinical condition Physical Exam: VITALS BP 141/56 Pulse 70 Temp 36.6 C (97.8 F) (Oral) Resp 16 Ht 162.6 cm (5' 4 ) Wt 115.6 kg (254 lb 13.6 oz) SpO2 100% BMI 43.75 kg/m Wt Readings from Last 3 Encounters: 08/08/24 115.6 kg (254 lb 13.6 oz) 04/23/24 100.8 kg (222 lb 3.6 oz) 04/20/24 104.2 kg (229 lb 12.8 oz) BMI: Body mass index is 43.75 kg/m . I/O (24 Hours) Intake/Output Summary (Last 24 hours) at 08/08/2024 1502 Last data filed at 08/08/2024 0503 Gross per 24 hour Intake -- Output 0 ml Net 0 ml General: Pt seems to be tired / Sleepy, arousable HEENT: Atraumatic, normocephalic. Anicteric sclera. Rawlings and moist oral mucosa. Neck supple. No JVD. Chest: Bilateral air entry equal but diminished , No rhonchi, some basal crackles Cardiovascular: RRR, S1S2, no murmur, rub or gallop. No lower extremity edema. Abdomen: Soft, non tender to palpation. Musculoskeletal: No cyanosis or clubbing. +1 edema Integumentary: Rawlings, warm and dry. Free from rash or lesions. INSURANCE SOLICITOR: Pt is confused - unclear baseline mental status , exam grossly non-focal Medications Scheduled Meds: insulin lispro, 1-4 Units, subcutaneous, Nightly insulin lispro, 1-5 Units, subcutaneous, TID with meals levothyroxine, 200 mcg, oral, Daily nystatin, 1 Application, topical, BID pantoprazole, 40 mg, intravenous, Q12H sevelamer, 800 mg, oral, BID with meals sodium chloride, 3 mL, intravenous, Q12H MARC Continuous Infusions: dextrose 5 % in water, 100 mL/hr sodium chloride 0.9 %, 20 mL/hr PRN Meds: acetaminophen calcium carbonate calcium gluconate calcium gluconate calcium gluconate dextrose dextrose 5 % in water dextrose 50 % in water (D50W) [DISCONTINUED] insulin regular AND [DISCONTINUED] dextrose 50 % in water (D50W) AND [DISCONTINUED] dextrose 50 % in water (D50W) AND dextrose 50 % in water (D50W) glucagon (human recombinant) hydrALAZINE ipratropium-albuteroL magnesium sulfate magnesium sulfate melatonin potassium chloride OR potassium chloride OR potassium chloride IV (Adult) sodium chloride sodium chloride sodium chloride 0.9 % Results Review Renal Panel Lab Results Component Value Date SODIUM 137 08/08/2024 SODIUM 132 (L) 08/06/2024 SODIUM 130 (L) 04/23/2024 SODIUM 130 (L) 04/22/2024 SODIUM 133 (L) 04/20/2024 K 5.5 (H) 08/08/2024 K 5.5 (H) 08/08/2024 K 4.5 08/06/2024 K 4.3 04/23/2024 K 5.0 04/22/2024 CL 101 08/08/2024 CL 97 (L) 08/06/2024 CL 99 04/23/2024 CL 96 (L) 04/22/2024 CL 95 (L) 04/20/2024 CO2 27 08/08/2024 CO2 26 08/06/2024 CO2 25 04/23/2024 CO2 26 04/22/2024 CO2 27 04/20/2024 ANIONGAP 9 08/08/2024 ANIONGAP 9 08/06/2024 ANIONGAP 6 04/23/2024 ANIONGAP 8 04/22/2024 ANIONGAP 11 04/20/2024 BUN 57 (H) 08/08/2024 BUN 45 (H) 08/06/2024 BUN 29 (H) 04/23/2024 BUN 43 (H) 04/22/2024 BUN 19 04/20/2024 CREATININE 4.94 (H) 08/08/2024 CREATININE 3.86 (H) 08/06/2024 CREATININE 3.61 (H) 04/23/2024 CREATININE 4.84 (H) 04/22/2024 CREATININE 3.14 (H) 04/20/2024 EGFR 9 (L) 08/08/2024 EGFR 12 (L) 08/06/2024 EGFR 13 (L) 04/23/2024 EGFR 9 (L) 04/22/2024 EGFR 15 (L) 04/20/2024 CALCIUM 8.5 08/08/2024 CALCIUM 8.1 (L) 08/06/2024 CALCIUM 8.4 (L) 04/23/2024 CALCIUM 8.7 04/22/2024 CALCIUM 8.6 04/20/2024 MG 2.0 08/08/2024 MG 1.9 04/23/2024 MG 2.0 04/22/2024 MG 1.7 (L) 04/20/2024 MG 2.0 01/12/2024 PHOSPHORUS 4.0 08/08/2024 PHOSPHORUS 4.4 04/21/2024 PHOSPHORUS 4.9 07/16/2019 PHOSPHORUS 5.1 (H) 07/15/2019 PHOSPHORUS 6.0 (H) 07/14/2019 Lab Results Component Value Date TOTALPROTEI 6.0 08/06/2024 TOTALPROTEI 6.2 04/23/2024 ALBUMIN 3.0 (L) 08/06/2024 ALBUMIN 3.1 (L) 04/23/2024 AST 16 08/06/2024 AST 21 04/23/2024 ALT 15 08/06/2024 ALT 17 04/23/2024 BILIRUBIN 0.4 08/06/2024 BILIRUBIN 0.5 04/23/2024 ALKPHOS 81 08/06/2024 ALKPHOS 88 04/23/2024 Lab Results Component Value Date WBC 6.4 08/08/2024 WBC 7.3 08/08/2024 HGB 7.6 (L) 08/08/2024 HGB 8.1 (L) 08/08/2024 HCT 23.3 (L) 08/08/2024 HCT 24.7 (L) 08/08/2024 PLT 124 (L) 08/08/2024 PLT 129 (L) 08/08/2024 Lab Results Component Value Date IRONSAT 36 08/08/2024 IRONSAT 11 (L) 07/13/2019 FERRITIN 504 (H) 08/08/2024 [id number] 392 08/08/2024 [id number] 351 04/21/2024 FOLATE 5.4 (L) 08/08/2024 FOLATE 6.3 04/21/2024 Results from last 7 days Lab Units 08/08/24 0421 MAGNESIUM mg/dL 2.0 Lab Results Component Value Date CALCIUM 8.5 08/08/2024 CALCIUM 8.1 (L) 08/06/2024 PHOSPHORUS 4.0 08/08/2024 PHOSPHORUS 4.4 04/21/2024 Urine Studies: Lab Results Component Value Date COLOR YELLOW 07/17/2019 TURBIDITY HAZY (A) 07/17/2019 SPECIFICGRA 1.025 04/20/2024 SPECIFICGRA 1.020 07/17/2019 NITRITE Negative 07/17/2019 PHURINE 8.5 07/17/2019 LEUKOCYTE Trace (A) 04/20/2024 LEUKOCYTE Negative 07/17/2019 PROTEIN 100 (A) 07/17/2019 KETONES Negative 07/17/2019 UROBILINOGEN 0.2 04/20/2024 UROBILINOGEN 0.2 07/17/2019 BLOODHGB Negative 07/17/2019 Lab Results Component Value Date ALBCREATRA 1,684.1 (H) 07/14/2019 Immunology Profile Lab Results Component Value Date CRP <0.5 04/20/2024 No results found for: HAV , HEPAIGM , HEPBIGM , HEPBCAB , HBEAG , HEPCAB Imaging Echo complete W/ contrast Result Date: 04/23/2024 The left ventricle appears normal in size. Severely increased LV wall thickness No obvious wall motion abnormality noted Normal LV systolic function, ejection fraction 55-60% Grade 1 LV diastolic dysfunction The right ventricle appears normal in size and function The left and right atrium appears normal in size The aortic valve was not well visualized no obvious, regurgitation or stenosis The mitral valve leaflet appears thickened, posterior mitral valve leaflet mobility is severely reduced As per Doppler study mean gradient 4 mm of mercury suggestive of mild mitral stenosis per the left atrium does not appear enlarged There was trace mitral regurgitation Trace tricuspid regurgitation no stenosis Right ventricular systolic pressure 27 mm of mercury Trace pulmonary regurgitation no stenosis Normal aortic root dimension The IVC appears normal in size, normal respiratory variation No significant pericardial effusion seen Thank you for the consultation. Please do not hesitate to contact us for any further questions/concerns. We will continue to follow along with you. Associated Order(s): IP CONSULT TO GASTROENTEROLOGY [facility] Teaching GI Service Initial Gastroenterology/Hepatology Consultation Note IDENTIFYING DATA PATIENT: Janay Schilling ADMIT DATE: 08/07/2024 TIME OF EVALUATION: 08/08/2024 7:42 AM Reason for Consult: Acute blood loss anemia Admitting Physician: Martin Garber MD HISTORY OF PRESENT ILLNESS Janay Schilling is a 74 y.o. female with history of significant for end-stage renal disease on hemodialysis (Tuesday, , Tuesday) via left upper extremity AV fistula, hypertension, hyperlipidemia, diastolic heart failure, and type 2 diabetes mellitus, presented with one day of melena and three days of progressive dyspnea, for which the Gastroenterology team was consulted for evaluation of suspected upper gastrointestinal bleeding in the setting of acute blood loss anemia. Patient was initially evaluated at an outside hospital where she was found to have a hemoglobin of 5.9 g/dL prompting transfer to [facility] for further management. She reported associated dizziness and a self-limited episode of chest pain that had resolved by arrival. She denies any recent NSAID use, GI-related symptoms such as abdominal pain, nausea, vomiting, or hematemesis. Notably, she is on chronic low-dose aspirin, but no other anticoagulants or antiplatelet agents. \On admission, her vital signs were notable for BP 167/61 mmHg and O2 saturation of 100% on baseline 2 L nasal cannula. She was hemodynamically stable with normal respiratory effort and no signs of volume overload. Physical exam was unremarkable except for trace bilateral lower extremity edema. She received 2 units of packed red blood cells with interval hemoglobin improvement to 8.9 g/dL. Laboratory evaluation revealed normocytic anemia (initial Hgb 5.9 ? 8.9 g/dL), normal coagulation parameters (INR 0.9, aPTT 25 sec), and no leukocytosis. Iron studies, B12, and folate levels were ordered to evaluate for underlying etiology. Chest X-ray and EKG were without acute abnormalities; troponins were negative at 0 and 1 hour (both 28), and BNP was 166. CT abdomen and pelvis without contrast showed no acute intra-abdominal pathology, though chronic findings included atrophic kidneys with cysts, a calcified fibroid, and severe aortic calcifications. At the time of my evaluation the patient is very sleepy and not providing a good details during the preliminary around as well as the 2nd round with the patient that is why communicating with the primary team to confirm the baseline mental status as well as the validity of her ability to making decision especially that she has switched her code upon admission from the DNR cc to the full code so that we will be able to proceed with a further discussion for any possible endoscopic workup or decision making. GI HISTORY SUMMARY TABLE Last EGD Last colonoscopy Primary GI physician PAST MEDICAL, SURGICAL, FAMILY, and SOCIAL HISTORY Past Medical History: Diagnosis Date Anemia, unspecified Cellulitis Cellulitis, unspecified CHF (congestive heart failure) ([facility] [place] [place]) Chronic kidney disease, unspecified Depression Diabetes mellitus type 2, controlled ([facility] [place] [place]) Difficulty walking DM (diabetes mellitus) ([facility] [place] [place]) MALHOTRA (dyspnea on exertion) Heart failure, systolic ([facility] [place] [place]) Hyperlipidemia Hypertension Hypothyroidism Infectious viral hepatitis Muscle weakness (generalized) Obesity Obstructive chronic bronchitis without exacerbation ([facility] [place] [place]) Post-COVID syndrome resolved Stroke ([facility] [place] [place]) Past Surgical History: Procedure Laterality Date APPENDECTOMY CHOLECYSTECTOMY TONSILLECTOMY Family History Problem Relation Age of Onset Heart disease Mother Kidney disease Mother Alzheimer's disease Sister Hypertension Sister Kidney disease Brother Breast cancer Neg Hx Social History: Social History Tobacco Use Smoking status: Former Current packs/day: 0.00 Average packs/day: 1 pack/day for 53.9 years (53.9 ttl pk-yrs) Types: Cigarettes Start date: 1969 Quit date: 04/01/2023 Years since quittin.3 Smokeless tobacco: Never Vaping Use Vaping status: Never Used Substance Use Topics Alcohol use: No Drug use: No MEDICATIONS Allergies: Allergies Allergen Reactions Amoxicillin Doxycycline Home Medications: Prior to Admission medications Medication Sig Start Date End Date Taking? Authorizing Provider acetaminophen (TYLENOL) 500 mg tablet Take 1 tablet (500 mg total) by mouth every 4 (four) hours as needed for pain. Not In System Ref Prov albuterol (PROVENTIL HFA;VENTOLIN HFA) 90 mcg/actuation inhaler Inhale 2 puffs every 6 (six) hours as needed for wheezing. Not In System Ref Prov amLODIPine (NORVASC) 5 mg tablet Take 1 tablet (5 mg total) by mouth in the morning. Not In System Ref Prov aspirin 81 mg Take 1 tablet (81 mg total) by mouth in the morning. 04/23/24 IRINA Avilez atorvastatin (LIPITOR) 40 mg tablet Take 2 tablets (80 mg total) by mouth in the morning. Not In System Ref Prov bumetanide (BUMEX) 0.5 mg tablet Take 1 tablet (0.5 mg total) by mouth daily. 09/03/23 IRINA Villalobos carvediloL (COREG) 6.25 mg tablet Take 1 tablet (6.25 mg total) by mouth once daily at bedtime. 04/23/24 IRINA Avilez cetirizine (ZyrTEC) 10 mg tablet Take 1 tablet (10 mg total) by mouth in the morning. Not In System Ref Prov docusate sodium (COLACE) 100 mg capsule Take 1 capsule (100 mg total) by mouth in the morning and 1 capsule (100 mg total) before bedtime. Not In System Ref Prov ergocalciferol (DRISDOL) 1,250 mcg (50,000 unit) capsule Take 1 capsule (50,000 Units total) by mouth in the morning. Give 1 capsule by mouth one time daily starting on the and ending on the every month.. Not In System Ref Prov guaiFENesin (MUCINEX) 600 mg tablet extended release 12hr Take 1 tablet (600 mg total) by mouth every 12 (twelve) hours as needed (congestion). Not In System Ref Prov isosorbide mononitrate (IMDUR) 30 mg 24 hr tablet Take 1 tablet (30 mg total) by mouth daily. 07/19/19 MD SOLEDAD Agrawal U-100 INSULIN 100 unit/mL (3 mL) insulin pen Inject 12 Units under the skin in the morning. 06/26/23 Not In System Ref Prov levothyroxine (SYNTHROID, LEVOTHROID) 200 MCG tablet Take 1 tablet (200 mcg total) by mouth in the morning. 04/24/24 IRINA Avilez losartan (COZAAR) 100 mg tablet Take 1 tablet (100 mg total) by mouth in the morning. Patient not taking: Reported on 08/07/2024 04/24/24 IRINA Avilez magnesium hydroxide 400 mg/5 mL suspension Take 30 mL by mouth nightly as needed. Not In System Ref Prov midodrine (PROAMATINE) 10 mg tablet Take 1 tablet (10 mg total) by mouth every morning. Tuesday, Tuesday, Tuesday for hypotension with dialysis. Not In System Ref Prov polyethylene glycol (MIRALAX) 17 gram/dose powder Take 17 g by mouth in the morning. Not In System Ref Prov sennosides-docusate sodium (SENNA WITH DOCUSATE SODIUM) 8.6-50 mg Take 1 tablet by mouth in the morning and 1 tablet before bedtime. Not In System Ref Prov sertraline (ZOLOFT) 100 mg tablet Take 2 tablets (200 mg total) by mouth in the morning. Not In System Ref Prov sevelamer (RENVELA) 800 mg tablet Take 1 tablet (800 mg total) by mouth in the morning and 1 tablet (800 mg total) in the evening. Take with meals. Not In System Ref Prov tenapanor (XPHOZAH) 20 mg tablet Take by mouth. Not In System Ref Prov vitamin B dneatp-T-NT-zinc cit (DIALYVITE 800 WITH ZINC 15) 0.8-15 mg tablet Take 1 tablet by mouth every morning. Not In System Ref Prov Current Medications: insulin lispro, 1-4 Units, subcutaneous, Nightly insulin lispro, 1-5 Units, subcutaneous, TID with meals levothyroxine, 200 mcg, oral, Daily pantoprazole, 40 mg, intravenous, Q12H sevelamer, 800 mg, oral, BID with meals sodium chloride, 3 mL, intravenous, Q12H MARC PRNs: acetaminophen, 650 mg, Q6H PRN calcium carbonate, 200 mg, TID PRN calcium gluconate, 3,000 mg, PRN calcium gluconate, 4,000 mg, PRN calcium gluconate, 2,000 mg, PRN dextrose, 15 g, PRN dextrose 5 % in water, 100 mL/hr, Continuous PRN dextrose 50 % in water (D50W), 25 mL, PRN glucagon (human recombinant), 1 mg, PRN hydrALAZINE, 10 mg, Q6H PRN ipratropium-albuteroL, 3 mL, Q6H PRN magnesium sulfate, 2,000 mg, PRN magnesium sulfate, 4,000 mg, PRN melatonin, 5 mg, Nightly PRN potassium chloride, 20-40 mEq, PRN Or potassium chloride, 20-40 mEq, PRN Or potassium chloride IV (Adult), 10 mEq, PRN sodium chloride, 3 mL, PRN sodium chloride, 25 mL, PRN sodium chloride 0.9 %, 20 mL/hr, Continuous PRN REVIEW OF SYSTEMS See HPI, otherwise ROS negative as below CONSTITUTIONAL: negative HEENT: negative RESPIRATORY: negative CARDIOVASCULAR: negative GASTROINTESTINAL: as in HPI GENITOURINARY: negative OBJECTIVE DATA Vitals: BP 187/60 Comment: rn notifed Pulse 65 Temp 36.9 C (98.5 F) (Oral) Resp 16 Wt 115.6 kg (254 lb 13.6 oz) SpO2 95% BMI 43.75 kg/m GEN: appears stated age, NAD HEENT: normocephalic, atraumatic, no conjunctival injection NECK: trachea appears midline, no gross lymphadenopathy CV: RRR, no peripheral edema PULM: breathing comfortably ABD: soft, non-tender, non-distended NEURO: alert and oriented x3 SKIN: no rashes LABS AND IMAGING CBC: Lab Results Component Value Date WBC 6.4 08/08/2024 HGB 7.6 (L) 08/08/2024 HCT 23.3 (L) 08/08/2024 MCV 97 08/08/2024 RDW 24.6 (H) 08/08/2024 PLT 124 (L) 08/08/2024 CMP: Lab Results Component Value Date K 5.5 (H) 08/08/2024 CL 101 08/08/2024 CO2 27 08/08/2024 BUN 57 (H) 08/08/2024 GLU 99 08/08/2024 GLU 119 (H) 08/08/2024 Lipase: No components found for: LIP Amylase: No results found for: WANG Ionized Calcium: No components found for: IONCA Magnesium: Lab Results Component Value Date MG 2.0 08/08/2024 Phosphorus: No components found for: PO4 PT/INR: Lab Results Component Value Date INR 0.9 08/07/2024 TSH: Lab Results Component Value Date TSH 29.36 (H) 04/21/2024 VITAMIN B12: No components found for: B12 FOLATE: Lab Results Component Value Date FOLATE 5.4 (L) 08/08/2024 IRON: No results found for: FE Iron Saturation: No components found for: PERCENTFESAT TIBC: Lab Results Component Value Date TIBC 242 (L) 08/08/2024 FERRITIN: Lab Results Component Value Date FERRITIN 504 (H) 08/08/2024 MICRO Blood Culture: No components found for: CBLOOD , CFUNGUSBL Stool Culture: No components found for: CSTOOL IMAGING: CT abdomen and pelvis without contrast Result Date: 08/06/2024 EXAM: ABDOMEN AND PELVIS CT WITHOUT CONTRAST CLINICAL INFORMATION: gi bleeding and epigastric and chest pain. TECHNIQUE: Routine unenhanced CT of the abdomen and pelvis was performed utilizing 5 mm axial reconstructions. Coronal and sagittal reformatted images as were obtained and reviewed. Automated exposure control was utilized. COMPARISON: 12/06/2023 FINDINGS: The limited visualized lung bases demonstrates bibasilar atelectasis and/or scarring. Again seen are chronically atrophic kidneys. Calcifications within the renal sam are compatible with a vascular etiology. There are no convincing ureteral stones or evidence for collecting system dilatation in either kidney. Cysts in both kidneys are again noted. The gallbladder is absent. Stable appearance of bilateral adrenal nodules, suspected adenomas. The liver, spleen, and pancreas are unremarkable within the limitations of an unenhanced CT. There are no dilated loops of bowel or evidence for pneumatosis or free air. There is no significant free fluid. Again seen are very severe dense calcifications throughout a normal diameter abdominal aorta. 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 A densely calcified fibroid is again noted. IMPRESSION: 1. No convincing evidence for acute abnormalities in the abdomen and pelvis, within the limitations of an unenhanced CT. 2. Stable appearance of multiple chronic and incidental CT findings, as above. All CT scans at this facility use dose modulation, iterative reconstruction, and/or weight based dosing when appropriate to reduce radiation dose to as low as reasonably achievable. Finalized by Armando Milton MD on 08/06/2024 11:07 PM X-ray chest 1 view Result Date: 08/06/2024 Single view chest XR CHEST 1 VW History: chest pain Comparison: April 21, 2024 Impression: * No consolidation or pleural fluid. No acute findings. Finalized by Elias Nunn MD on 08/06/2024 9:46 PM ASSESSMENT AND PLAN Janay Schilling is a 74 y.o. female who has past medical history of hypertension, end-stage renal disease on hemodialysis, heart failure and was admitted for acute symptomatic anemia with a hemoglobin of 5.9 from the baseline of 11.9 on April 2024. Patient denying any previous endoscopic workup, no colonoscopy or EGD and the CT scan without significant finding. Endorsing fatigue and shortness of breath with chest pain and discomfort and dark stool. Assessment # Upper gastrointestinal bleeding ? Presentation with melena and acute blood loss anemia (Hgb 5.9 ? 8.9 g/dL post-transfusion x2 units PRBCs) in the setting of chronic low-dose aspirin use. ? No overt hematemesis, abdominal pain, or NSAID use. ? Normocytic anemia with no leukocytosis and stable vitals on admission. ? Currently on IV PPI and NPO status. #End-stage renal disease on hemodialysis ? Tri-weekly schedule (Tuesday, , Tuesday) via left upper extremity AV fistula. ? No missed sessions or signs of volume overload on exam. ? BNP 166; trace bilateral LE edema. ? Nephrology consulted for inpatient dialysis coordination. #Diastolic heart failure ? History of diastolic dysfunction, no evidence of acute decompensation or volume overload. Plan trend the hemoglobin and hematocrit Q 6 hours . transfuse PRBC accordingly to keep hemoglobin over 8 giving the IV Protonix drip. Monitor serial hemoglobin and hematocrit every 6-8 hours or as clinically indicated. we will discuss with the patient and the team possible endoscopic intervention Keep the patient NPO At the time of evaluation, the patient was very sleepy and unable to provide detailed information during both initial and follow-up assessments. Therefore, I communicated with the primary team to confirm her baseline mental status and assess her decision-making capacity, especially since she changed her code status from DNR-CC to full code upon admission. This clarification is essential before proceeding with discussions regarding potential endoscopic evaluations or further medical decisions. Gastroenterology team will continue to follow up closely. This consult will be discussed with attending physician. If you have any questions please feel free to contact the GI Service. Thank you for allowing us to participate in the care of Janay Schilling. [facility] 7 am to 5pm weekdays in house 5 pm to 7 am or weekends please contact the flocculator operator to page the fellow conservation science officer Cosigned by King Radford MD at 08/08/2024 10:05 AM EDT Associated attestation - King Radford MD - 08/08/2024 10:05 AM EDT Seen and discussed with fellow, agree with history/physical exam/plan. Will eventually need endoscopy depending upon mental status as well as code status. documented in this encounter [facility] 08-09-2024 Progress note Formatting of t his note might be different from the original. DISCHARGE PLANNING NOTE POA paperwork and DNRCC faxed from SNF and put on chart. Pt will return to [facility].Adela Perez RN [facility] 08-09-2024 Nurse Note Treatment was canceled by Dr Masterson due to patient being nauseated and vomiting. Membership Sales Manager called for zofran order and gave patient zofran per orders. [facility] 08-09-2024 Progress note Formatting of t his note is different from the original. 08/09/24 1142 Referral To Community Referrals / Resources Provided Denies needs Services Requested Patient expects to be discharged to: RTN to [facility] Does the patient wish to have family/friend/caregiver involved in their discharge planning? No, the patient does not wish to have family/friend/caregiver involved in their discharge planning Discharge Disposition Skilled Return Skilled Return Name [facility] Does the patient need discharge transportation arranged? Yes Transportation Arranged Ambulance Mobility issues discussed with transportation provider Yes Patient choice offered Yes List Provided Patient declined Patient Declined Active with Provider Financial Disclosure Provided for In-Network Referral Yes DISCHARGE PLANNING NOTE Pt will rtn to [facility] at [place]. She is LTC. Pt also goes to dialysis at [facility]. CN tasked for referral to be sent to them as well. Per [facility], pts POA is her sister Isreal Sheridan, . I attempted to call her and got VM. Ethel also asked SNF to fax us the POA paperwork if they have it. Pt is saying she is not her POA anymore but pt is intermittently confused. Adela Perez, RN [facility] 08-09-2024 Progress note Formatting of t his note might be different from the original. DISCHARGE PLANNING NOTE Referral sent to [facility] (P# [phone] ; F# [phone]) [facility] 08-09-2024 Plan of care note Problem: Pain Goal: Patient goal is pain score less than 4, able to rest, and participant in treatment plan as appropriate Description: INTERVENTIONS: 1. Encourage patient or legal u.s. representative to report early pain and ask for pain medicine when needed 2. Assess pain using appropriate pain scale and include the scale used when documenting 3. Administer analgesics based on type and severity of pain and evaluate response within appropriate time frame 4. Implement non-pharmacological measures as appropriate and evaluate response 5. Consider cultural and social influences on pain and pain management 6. Notify LIP if interventions ineffective or patient reports new pain 7. Monitor vital signs including pulse ox, end-tidal CO2 based on pain intervention 8. Reassess pain per policy 9. Teach patient or legal u.s. representative interventions for comforting Outcome: Progressing Note: Evaluation of progress towards goal: Pt assessed for pain via 0-10 pain scale. Pt has PRN analgesics available. Will continue to reassessed Pt's pain appropriately. Problem: Safety Goal: Patient will be injury free during hospitalization Description: INTERVENTIONS: 1. Assess patient's risk for falls and implement fall prevention plan of care per policy 2. Provide and maintain a safe environment 3. Proper use of double Identifiers 4. Medication administration using the 5 rights 5. Hand hygiene 6. Specimens are labeled at the bedside 7. Instruct patient/ patient u.s. representative about use of safety devices 8. Include patient/ patient u.s. representative in decisions related to safety Outcome: Progressing Note: Evaluation of progress towards goal: Patient safety maintained. Hourly rounding and fall risk precautions maintained. Problem: Infection Goal: Absence of infection during hospitalization Description: INTERVENTIONS 1. Assess and monitor for signs and symptoms of infection. 2. Monitor lab/diagnostic results. 3. Monitor all insertion sites i.e., indwelling lines, tubes and drains. 4. Monitor endotracheal (as able) and nasal secretions for changes in amount and color. 5. Administer medications as ordered. 6. Instruct and encourage patient and family to use good hand hygiene technique. 7. Identify and instruct patient/patient u.s. representative in use of appropriate isolation precautions for identified infection/symptoms. 8. Provide and discuss with patient/patient u.s. representative on educational MDRO sheet. 9. Encourage and monitor nutritional status daily and consult computer network support specialist if indicated. 10. Implement neutropenic guidelines as needed. Outcome: Progressing Note: Evaluation of progress towards goal: Patient evaluated for S/S of infection. Patients vital signs, labs, and diagnostic results are being monitored each shift. Problem: Knowledge Deficit Goal: Patient/patient u.s. representative demonstrates understanding of disease process, treatment plan, medications, and discharge instructions Description: INTERVENTIONS 1. Complete learning assessment and assess knowledge base 2. Provide teaching at level of understanding 3. Provide teaching via preferred learning method(s) Outcome: Progressing Note: Evaluation of progress towards goal: Patient demonstrates understanding of current plan of care. Will continue to assess education needs. Problem: Discharge Planning Goal: Discharge to post-acute care, other facility, or home with appropriate resources Description: Patient's goal is: Referral sent to [facility] INTERVENTIONS 1. Conduct assessment to determine patient/family and health care team treatment goals, and need for post-acute services based on payer coverage, community resources, and patient preferences, and barriers to discharge 2. Coordinate with Social work, Care Navigation, and Utilization Review to arrange appropriate level of services according to patient's needs based on patient preference and payer coverage in collaboration with the physician and health care team 3. Address psychosocial, clinical, and financial barriers to discharge as identified in assessment in conjunction with the patient/family and health care team 4. Consult appropriate ancillary services (i.e.. PT/OT/ST, etc) as needed 5. Communicate with and update the patient/family, physician, and health care team regarding progress on the discharge plan 6. Identify discharge learning needs (meds, wound care, etc). 7. Arrange for needed discharge transportation as appropriate Outcome: Progressing Note: Evaluation of progress towards goal: Patient discharge criteria progressing. Will continue to assess for discharge needs. Problem: Glucose Imbalance Goal: Clinical indication of glucose balance is achieved Description: Patient's goal is: maintain glucose balance WDL INTERVENTIONS 1. Monitor blood glucose levels as ordered 2. Administer medications as ordered 3. Notify physician of ineffective treatment plan Outcome: Progressing Note: Evaluation of progress towards goal: Patient glucose maintained within range per use of scheduled medications. Will continue to assess and treat as appropriate. Problem: Potential for Compromised Skin Integrity Goal: Skin integrity is maintained or improved Description: Patient's goal is: maintain skin integrity and have no new breakdown for duration of stay INTERVENTIONS 1. Perform initial skin assessment on admission and as needed 2. Turn patient every 2 hours and PRN 3. Relieve pressure to bony prominences 4. Avoid shearing 5. Keep skin clean and dry 6. Alternate a full bath with partial baths for elderly 7. Apply lotion/moisturizer on skin 8. Monitor patient's hygiene practices 9. Float heels 10. Collaborate with interdisciplinary team and initiate plans and interventions as needed Outcome: Progressing Note: Evaluation of progress towards goal: Patient skin integrity maintained. Will continue to assess and treat as appropriate. Problem: Urinary Incontinence Goal: Perineal skin integrity is maintained or improved Description: INTERVENTIONS 1. Assess genitourinary system, perineal skin, labs (urinalysis), and history of incontinence to include past management, aggravating, and alleviating factors 2. Keep skin clean and dry 3. Apply skin protectant 4. Develop skin care regimen 5. Provide privacy when changing patients incontinence device to maintain their dignity 6. Consider placing an indwelling catheter 7. Collaborate with interdisciplinary team and initiate plans and interventions as needed Outcome: Progressing Note: Evaluation of progress towards goal: Patient skin integrity maintained. Will continue to assess and treat as appropriate. Problem: Moderate - High Risk Fall Score Description: Mejia Fall Score of =/> 25 or indicated by [facility] Assessment Goal: Patient should be free from fall Description: Interventions: 1. [place] to environment 2. Hourly rounds addressing the 4 P's (Pain, Positioning, Possessions, Potty) 3. Clear area of hazards (spills, clutter, electrical cords, unnecessary equipment) 4. Place equipment (bed & TV controls, call light, phone, urinal) within reach 5. Encourage patient to wear glasses and hearing aides as appropriate 6. Maintain bed in lowest position 7. Lock wheels on bed/wheelchair 8. Provide adequate lighting, including night light 9. Assess need for additional bedding, food/fluids, pain med's prior to sleep/routinely 10. Provide gripper slippers or personal non-skid footwear 11. Teach patient and patient u.s. representative to maintain environment for safety and engage in all aspects of fall prevention program 12. Remind patient to call for help before getting out of bed 13. Initiate bed/chair/exit alarms supportive devices as appropriate, (chair wedge, no-skid floor mat, raised edge mattress, hip protectors) 14. Locate patient bed assignment for optimal visualization 15. Evaluate and identify Safe Patient Handling Equipment needs 16. Provide supervision when out of bed or chair 17. Utilize gait belt as needed to assist with ambulation 18. Place adaptive equipment (cane, walker) within reach 19. Request patient u.s. representative bring adaptive equipment/mobility aids from home or obtain and provide as needed 20. Consult pharmacy regarding effects of med's affecting mobility, cognition, and alternatives 21. Obtain physician order for PT if risk factors associated with mobility are present 22. Obtain physician order for OT as appropriate 23. Utilize diversional activities 24. Educate patient and patient u.s. representative how to maintain a safe environment during visitation times (notify nurse prior to leaving bedside) 25. Consider appropriateness of medical or non-medical pathologist 26. Set up voiding schedule as appropriate (every 2 hours) Outcome: Progressing Note: Evaluation of progress towards goal: Pt will be free from falls this admission. High risk Fall scale interventions in place. [facility] [email or web address] [facility] 08-08-2024 Progress note Formatting of t his note is different from the original. Intensive care was asked to evaluate the patient by Nephrology According to nursing staff, the patient became bradycardic, hypotensive, and extremely confused during hemodialysis. Upon our evaluation, the patient was awake, oriented to person, place, and time, sleepy but responsive to questions and following commands. Vital signs were stable, with adequate blood pressure and oxygen saturation >90% on 3L via nasal cannula. Arterial blood gas (ABG) did not reveal any evidence of CO? retention. Although the patient does not currently meet criteria for ICU-level care, we recommended transfer to a higher level of care for closer monitoring Patient code status [facility]NR [facility] Work Phone: 08-08-2024 Nurse Note Message left for her sister David about transfer [facility] 08-08-[address] Reich from [facility] service updated on pt and orders to transfer [facility]-08-[facility]24 Plan of care note Patient is being transferred to [facility] which I was not notified about. According to nurse, the patient had a rapid response called due to hypotension during dialysis. Nephrology presented bedside and evaluated the patient along with warehouse sorter. A joint decision was made to send the patient to [facility]. This information was elicited from the nursing staff as I was not notified by the rapid team or anyone else. The patient's code status still remains DNR CC as of my knowledge. [facility] Work Phone: 08-08-2024 Procedure note Associated Ord er(s): HEMODIALYSIS INPATIENT Pt completed 2 hour 10 minute treatment. Pt tolerated poorly. Pt's SBP decreased to 80's. Dr. Masterson at bedside and ordered albumin and midodrine. As I was putting in the order pt went bradycardic, in the 40's not responding, clammy. Gave [address] Masterson called and was told to stop treatment. He wanted rapid called and a stat EKG and labs. He also wanted pt to be evaluated for higher level of care. JOLEEN Abarca came and assessed pt, Dr. Vero Chawla came to also assess pt. Pt at that time was responding to questions, alert, but very lethargic. BP stable 138/59. He did not feel the need to transfer pt at that time. So pt was transferred back to her room. Pt's left AVF functioned well 350 bfr. Post BP 138/59 Post weight 107.5kg Fluid removal 1.2kg [facility] 08-08-2024 Nurse Note Returned to room from dialysis, pt sleeping but arouses easily to verbal stimuli denies pain or shortness of breath. Discussed transfer with Gen 6 charge nurse and will call report shortly. [facility] 08-08-2024 Plan of care note Problem: Pain Goal: Patient goal is pain score less than 4, able to rest, and participant in treatment plan as appropriate Description: INTERVENTIONS: 1. Encourage patient or legal u.s. representative to report early pain and ask for pain medicine when needed 2. Assess pain using appropriate pain scale and include the scale used when documenting 3. Administer analgesics based on type and severity of pain and evaluate response within appropriate time frame 4. Implement non-pharmacological measures as appropriate and evaluate response 5. Consider cultural and social influences on pain and pain management 6. Notify LIP if interventions ineffective or patient reports new pain 7. Monitor vital signs including pulse ox, end-tidal CO2 based on pain intervention 8. Reassess pain per policy 9. Teach patient or legal u.s. representative interventions for comforting Outcome: Progressing Note: Evaluation of progress towards goal: no c/o discomfort Problem: Safety Goal: Patient will be injury free during hospitalization Description: INTERVENTIONS: 1. Assess patient's risk for falls and implement fall prevention plan of care per policy 2. Provide and maintain a safe environment 3. Proper use of double Identifiers 4. Medication administration using the 5 rights 5. Hand hygiene 6. Specimens are labeled at the bedside 7. Instruct patient/ patient u.s. representative about use of safety devices 8. Include patient/ patient u.s. representative in decisions related to safety Outcome: Progressing Note: Evaluation of progress towards goal: safety measures maintained no injuries Problem: Infection Goal: Absence of infection during hospitalization Description: INTERVENTIONS 1. Assess and monitor for signs and symptoms of infection. 2. Monitor lab/diagnostic results. 3. Monitor all insertion sites i.e., indwelling lines, tubes and drains. 4. Monitor endotracheal (as able) and nasal secretions for changes in amount and color. 5. Administer medications as ordered. 6. Instruct and encourage patient and family to use good hand hygiene technique. 7. Identify and instruct patient/patient u.s. representative in use of appropriate isolation precautions for identified infection/symptoms. 8. Provide and discuss with patient/patient u.s. representative on educational MDRO sheet. 9. Encourage and monitor nutritional status daily and consult computer network support specialist if indicated. 10. Implement neutropenic guidelines as needed. Outcome: Progressing Note: Evaluation of progress towards goal: no s/s infection Problem: Knowledge Deficit Goal: Patient/patient u.s. representative demonstrates understanding of disease process, treatment plan, medications, and discharge instructions Description: INTERVENTIONS 1. Complete learning assessment and assess knowledge base 2. Provide teaching at level of understanding 3. Provide teaching via preferred learning method(s) Outcome: Progressing Note: Evaluation of progress towards goal: all care explained Problem: Discharge Planning Goal: Discharge to post-acute care, other facility, or home with appropriate resources Description: Patient's goal is: INTERVENTIONS 1. Conduct assessment to determine patient/family and health care team treatment goals, and need for post-acute services based on payer coverage, community resources, and patient preferences, and barriers to discharge 2. Coordinate with Social work, Care Navigation, and Utilization Review to arrange appropriate level of services according to patient's needs based on patient preference and payer coverage in collaboration with the physician and health care team 3. Address psychosocial, clinical, and financial barriers to discharge as identified in assessment in conjunction with the patient/family and health care team 4. Consult appropriate ancillary services (i.e.. PT/OT/ST, etc) as needed 5. Communicate with and update the patient/family, physician, and health care team regarding progress on the discharge plan 6. Identify discharge learning needs (meds, wound care, etc). 7. Arrange for needed discharge transportation as appropriate Outcome: Progressing Note: Evaluation of progress towards goal: plans to return to snf at discharge [facility] 08-08-2024 Progress note Formatting of t his note might be different from the original. DISCHARGE PLANNING NOTE Referral to [facility] [facility] ([facility]) (P# ; F# ) [facility] 08-08-2024 Consult note Associated Order (s): IP CONSULT TO NEPHROLOGY Images from the original note were not included. [facility] Jacques Mccall, EUGENIA Nephrology Consultation note Patient Name: Janay Schilling : 1950 Date of Service: 08/08/24 PCP: DEENA PERKINS MD Attending Physician: Martin Garber MD Admission Date: 08/07/2024 Length of stay: LOS: 1 day Chief complaint No chief complaint on file. Reason for Consult: ESRD on HD Assessment and Plan 74-year-old female with a past medical history significant for end-stage renal disease on hemodialysis (//Sat via left upper extremity AV fistula), hypertension, type 2 diabetes mellitus, diastolic heart failure, hypothyroidism, hyperlipidemia, and prior stroke, presented with melena and progressive dyspnea for 3 days. Initial hemoglobin was 5.9 g/dL, prompting transfer from an outside facility. She also reported dizziness and a transient episode of chest discomfort. No hematemesis, abdominal pain, nausea, vomiting, or NSAID use. Chronic aspirin use noted. She was hemodynamically stable on arrival and received 2 units of PRBCs with improvement of Hgb to 8.9 g/dL. Labs showed normocytic anemia, INR 0.9, normal aPTT, and no leukocytosis. CT abdomen/pelvis revealed atrophic kidneys with cysts and severe aortic calcification. BNP 166, chest X-ray and EKG unremarkable. 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 GI on board History of CHF History of DM History of Hypothyroidism Obesity / CATARINO Plan We will plan for hemodialysis today Resume Home anti HTN meds as able CHINA Q weekly Check Iron studies Check PTH Vit D HD diet, 1400 ml/24 hr fluid restriction Dose all meds to GFR < 10 Thank you for this consultation, we will follow along with you regarding care of this patient while the patient is here in the hospital, please call if you have any questions or concerns. MIKE MASTERSON MD on 08/08/2024 at 3:02 PM [facility]. Ph: [phone] History of presenting illness 74-year-old female with a past medical history significant for end-stage renal disease on hemodialysis (//Tue via left upper extremity AV fistula), hypertension, type 2 diabetes mellitus, diastolic heart failure, hypothyroidism, hyperlipidemia, and prior stroke, presented with melena and progressive dyspnea for 3 days. Initial hemoglobin was 5.9 g/dL, prompting transfer from an outside facility. She also reported dizziness and a transient episode of chest discomfort. No hematemesis, abdominal pain, nausea, vomiting, or NSAID use. Chronic aspirin use noted. She was hemodynamically stable on arrival and received 2 units of PRBCs with improvement of Hgb to 8.9 g/dL. Labs showed normocytic anemia, INR 0.9, normal aPTT, and no leukocytosis. CT abdomen/pelvis revealed atrophic kidneys with cysts and severe aortic calcification. BNP 166, chest X-ray and EKG unremarkable. Nephrology was consulted for ongoing dialysis Past Medical History: Diagnosis Date Anemia, unspecified Cellulitis Cellulitis, unspecified CHF (congestive heart failure) ([facility]) Chronic kidney disease, unspecified Depression Diabetes mellitus type 2, controlled ([facility]) Difficulty walking DM (diabetes mellitus) ([facility]) MALHOTRA (dyspnea on exertion) Heart failure, systolic ([facility]) Hyperlipidemia Hypertension Hypothyroidism Infectious viral hepatitis Muscle weakness (generalized) Obesity Obstructive chronic bronchitis without exacerbation ([facility]) Post-COVID syndrome resolved Stroke ([facility]) Past Surgical History: Procedure Laterality Date APPENDECTOMY CHOLECYSTECTOMY TONSILLECTOMY Family History Problem Relation Age of Onset Heart disease Mother Kidney disease Mother Alzheimer's disease Sister Hypertension Sister Kidney disease Brother Breast cancer Neg Hx Social History Socioeconomic History Marital status: Single Spouse name: Not on file Number of children: Not on file Years of education: Not on file Highest education level: Not on file Occupational History Not on file Tobacco Use Smoking status: Former Current packs/day: 0.00 Average packs/day: 1 pack/day for 53.9 years (53.9 ttl pk-yrs) Types: Cigarettes Start date: 1969 Quit date: 04/01/2023 Years since quittin.3 Smokeless tobacco: Never Vaping Use Vaping status: Never Used Substance and Sexual Activity Alcohol use: No Drug use: No Sexual activity: Defer Other Topics Concern Caffeine Use Yes Social History Narrative Not on file Social Drivers of Health Financial Resource Strain: Not on file Food Insecurity: No Food Insecurity (08/06/2024) Hunger Screening Food Insecurity - Worry: Never True Food Insecurity - Inability: Never True Transportation Needs: No Transportation Needs (04/21/2024) PRAPARE - Transportation Lack of Transportation (Medical): No Lack of Transportation (Non-Medical): No Physical Activity: Not on file Stress: Not on file Social Connections: Not on file Interpersonal Safety: Not At Risk (04/21/2024) Humiliation, Afraid, Rape, and Kick questionnaire Fear of Current or Ex-Partner: No Emotionally Abused: No Physically Abused: No Sexually Abused: No Housing Instability: Low Risk (04/21/2024) Housing Instability Housing Instability: No Prior to Admission medications Medication Sig Start Date End Date Taking? Authorizing Provider acetaminophen (TYLENOL) 500 mg tablet Take 1 tablet (500 mg total) by mouth every 4 (four) hours as needed for pain. Yes Not In System Ref Prov albuterol (PROVENTIL HFA;VENTOLIN HFA) 90 mcg/actuation inhaler Inhale 2 puffs every 6 (six) hours as needed for wheezing. Yes Not In System Ref Prov amLODIPine (NORVASC) 5 mg tablet Take 1 tablet (5 mg total) by mouth in the morning. Patient taking differently: Take 0.5 tablets (2.5 mg total) by mouth in the morning. Yes Not In System Ref Prov aspirin 81 mg Take 1 tablet (81 mg total) by mouth in the morning. 04/23/24 Yes IRINA Avilez atorvastatin (LIPITOR) 40 mg tablet Take 2 tablets (80 mg total) by mouth in the morning. Yes Not In System Ref Prov bumetanide (BUMEX) 0.5 mg tablet Take 1 tablet (0.5 mg total) by mouth daily. 09/03/23 Yes IRINA Villalobos carvediloL (COREG) 6.25 mg tablet Take 1 tablet (6.25 mg total) by mouth once daily at bedtime. 04/23/24 Yes IRINA Avilez cetirizine (ZyrTEC) 10 mg tablet Take 1 tablet (10 mg total) by mouth in the morning. Yes Not In System Ref Prov docusate sodium (COLACE) 100 mg capsule Take 1 capsule (100 mg total) by mouth in the morning and 1 capsule (100 mg total) before bedtime. Yes Not In System Ref Prov dulaglutide (TRULICITY) 3 mg/0.5 mL pen injector Inject 0.5 mL under the skin once a week Indications: type 2 diabetes mellitus. Every Tuesday Yes Not In System Ref Prov ergocalciferol (DRISDOL) 1,250 mcg (50,000 unit) capsule Take 1 capsule (50,000 Units total) by mouth in the morning. Give 1 capsule by mouth one time daily starting on the and ending on the every month.. Yes Not In System Ref Prov fluticasone furoate-vilanteroL (BREO ELLIPTA) 100-25 mcg/dose blister with device Inhale 1 puff in the morning. Indications: bronchospasm prevention with COPD. Yes Not In System Ref Prov isosorbide mononitrate (IMDUR) 30 mg 24 hr tablet Take 1 tablet (30 mg total) by mouth daily. 07/19/19 Yes MD SOLEDDA Agrawal U-100 INSULIN 100 unit/mL (3 mL) insulin pen Inject 12 Units under the skin in the morning. 06/26/23 Yes Not In System Ref Prov levothyroxine (SYNTHROID, LEVOTHROID) 200 MCG tablet Take 1 tablet (200 mcg total) by mouth in the morning. 04/24/24 Yes IRINA Avilez magnesium hydroxide 400 mg/5 mL suspension Take 30 mL by mouth nightly as needed (constipation). Yes Not In System Ref Prov midodrine (PROAMATINE) 10 mg tablet Take 2 tablets (20 mg total) by mouth every morning. Tuesday, Tuesday, Tuesday for hypotension with dialysis. Yes Not In System Ref Prov polyethylene glycol (MIRALAX) 17 gram/dose powder Take 17 g by mouth in the morning. Yes Not In System Ref Prov sennosides-docusate sodium (SENNA WITH DOCUSATE SODIUM) 8.6-50 mg Take 1 tablet by mouth in the morning and 1 tablet before bedtime. Yes Not In System Ref Prov sertraline (ZOLOFT) 100 mg tablet Take 2 tablets (200 mg total) by mouth in the morning. Yes Not In System Ref Prov sevelamer (RENVELA) 800 mg tablet Take 1 tablet (800 mg total) by mouth in the morning and 1 tablet (800 mg total) at noon and 1 tablet (800 mg total) in the evening. Take with meals. Yes Not In System Ref Prov tenapanor (XPHOZAH) 20 mg tablet Take by mouth. Yes Not In System Ref Prov guaiFENesin (MUCINEX) 600 mg tablet extended release 12hr Take 1 tablet (600 mg total) by mouth every 12 (twelve) hours as needed (congestion). Not In System Ref Prov losartan (COZAAR) 100 mg tablet Take 1 tablet (100 mg total) by mouth in the morning. Patient not taking: Reported on 08/07/2024 04/24/24 Roopa Dominguez APRN-EUGENIA vitamin B pflxav-Z-FE-zinc cit (DIALYVITE 800 WITH ZINC 15) 0.8-15 mg tablet Take 1 tablet by mouth every morning. Not In System Ref Prov Allergies Allergen Reactions Amoxicillin Doxycycline Review Of Systems: ROS could not be done due to clinical condition Physical Exam: VITALS BP 141/56 Pulse 70 Temp 36.6 C (97.8 F) (Oral) Resp 16 Ht 162.6 cm (5' 4 ) Wt 115.6 kg (254 lb 13.6 oz) SpO2 100% BMI 43.75 kg/m Wt Readings from Last 3 Encounters: 08/08/24 115.6 kg (254 lb 13.6 oz) 04/23/24 100.8 kg (222 lb 3.6 oz) 04/20/24 104.2 kg (229 lb 12.8 oz) BMI: Body mass index is 43.75 kg/m . I/O (24 Hours) Intake/Output Summary (Last 24 hours) at 08/08/2024 1502 Last data filed at 08/08/2024 0503 Gross per 24 hour Intake -- Output 0 ml Net 0 ml General: Pt seems to be tired / Sleepy, arousable HEENT: Atraumatic, normocephalic. Anicteric sclera. Rawlings and moist oral mucosa. Neck supple. No JVD. Chest: Bilateral air entry equal but diminished , No rhonchi, some basal crackles Cardiovascular: RRR, S1S2, no murmur, rub or gallop. No lower extremity edema. Abdomen: Soft, non tender to palpation. Musculoskeletal: No cyanosis or clubbing. +1 edema Integumentary: Rawlings, warm and dry. Free from rash or lesions. INSURANCE SOLICITOR: Pt is confused - unclear baseline mental status , exam grossly non-focal Medications Scheduled Meds: insulin lispro, 1-4 Units, subcutaneous, Nightly insulin lispro, 1-5 Units, subcutaneous, TID with meals levothyroxine, 200 mcg, oral, Daily nystatin, 1 Application, topical, BID pantoprazole, 40 mg, intravenous, Q12H sevelamer, 800 mg, oral, BID with meals sodium chloride, 3 mL, intravenous, Q12H MARC Continuous Infusions: dextrose 5 % in water, 100 mL/hr sodium chloride 0.9 %, 20 mL/hr PRN Meds: acetaminophen calcium carbonate calcium gluconate calcium gluconate calcium gluconate dextrose dextrose 5 % in water dextrose 50 % in water (D50W) [DISCONTINUED] insulin regular AND [DISCONTINUED] dextrose 50 % in water (D50W) AND [DISCONTINUED] dextrose 50 % in water (D50W) AND dextrose 50 % in water (D50W) glucagon (human recombinant) hydrALAZINE ipratropium-albuteroL magnesium sulfate magnesium sulfate melatonin potassium chloride OR potassium chloride OR potassium chloride IV (Adult) sodium chloride sodium chloride sodium chloride 0.9 % Results Review Renal Panel Lab Results Component Value Date SODIUM 137 08/08/2024 SODIUM 132 (L) 08/06/2024 SODIUM 130 (L) 04/23/2024 SODIUM 130 (L) 04/22/2024 SODIUM 133 (L) 04/20/2024 K 5.5 (H) 08/08/2024 K 5.5 (H) 08/08/2024 K 4.5 08/06/2024 K 4.3 04/23/2024 K 5.0 04/22/2024 CL 101 08/08/2024 CL 97 (L) 08/06/2024 CL 99 04/23/2024 CL 96 (L) 04/22/2024 CL 95 (L) 04/20/2024 CO2 27 08/08/2024 CO2 26 08/06/2024 CO2 25 04/23/2024 CO2 26 04/22/2024 CO2 27 04/20/2024 ANIONGAP 9 08/08/2024 ANIONGAP 9 08/06/2024 ANIONGAP 6 04/23/2024 ANIONGAP 8 04/22/2024 ANIONGAP 11 04/20/2024 BUN 57 (H) 08/08/2024 BUN 45 (H) 08/06/2024 BUN 29 (H) 04/23/2024 BUN 43 (H) 04/22/2024 BUN 19 04/20/2024 CREATININE 4.94 (H) 08/08/2024 CREATININE 3.86 (H) 08/06/2024 CREATININE 3.61 (H) 04/23/2024 CREATININE 4.84 (H) 04/22/2024 CREATININE 3.14 (H) 04/20/2024 EGFR 9 (L) 08/08/2024 EGFR 12 (L) 08/06/2024 EGFR 13 (L) 04/23/2024 EGFR 9 (L) 04/22/2024 EGFR 15 (L) 04/20/2024 CALCIUM 8.5 08/08/2024 CALCIUM 8.1 (L) 08/06/2024 CALCIUM 8.4 (L) 04/23/2024 CALCIUM 8.7 04/22/2024 CALCIUM 8.6 04/20/2024 MG 2.0 08/08/2024 MG 1.9 04/23/2024 MG 2.0 04/22/2024 MG 1.7 (L) 04/20/2024 MG 2.0 01/12/2024 PHOSPHORUS 4.0 08/08/2024 PHOSPHORUS 4.4 04/21/2024 PHOSPHORUS 4.9 07/16/2019 PHOSPHORUS 5.1 (H) 07/15/2019 PHOSPHORUS 6.0 (H) 07/14/2019 Lab Results Component Value Date TOTALPROTEI 6.0 08/06/2024 TOTALPROTEI 6.2 04/23/2024 ALBUMIN 3.0 (L) 08/06/2024 ALBUMIN 3.1 (L) 04/23/2024 AST 16 08/06/2024 AST 21 04/23/2024 ALT 15 08/06/2024 ALT 17 04/23/2024 BILIRUBIN 0.4 08/06/2024 BILIRUBIN 0.5 04/23/2024 ALKPHOS 81 08/06/2024 ALKPHOS 88 04/23/2024 Lab Results Component Value Date WBC 6.4 08/08/2024 WBC 7.3 08/08/2024 HGB 7.6 (L) 08/08/2024 HGB 8.1 (L) 08/08/2024 HCT 23.3 (L) 08/08/2024 HCT 24.7 (L) 08/08/2024 PLT 124 (L) 08/08/2024 PLT 129 (L) 08/08/2024 Lab Results Component Value Date IRONSAT 36 08/08/2024 IRONSAT 11 (L) 07/13/2019 FERRITIN 504 (H) 08/08/2024 [id number] 392 08/08/2024 [id number] 351 04/21/2024 FOLATE 5.4 (L) 08/08/2024 FOLATE 6.3 04/21/2024 Results from last 7 days Lab Units 08/08/24 0421 MAGNESIUM mg/dL 2.0 Lab Results Component Value Date CALCIUM 8.5 08/08/2024 CALCIUM 8.1 (L) 08/06/2024 PHOSPHORUS 4.0 08/08/2024 PHOSPHORUS 4.4 04/21/2024 Urine Studies: Lab Results Component Value Date COLOR YELLOW 07/17/2019 TURBIDITY HAZY (A) 07/17/2019 SPECIFICGRA 1.025 04/20/2024 SPECIFICGRA 1.020 07/17/2019 NITRITE Negative 07/17/2019 PHURINE 8.5 07/17/2019 LEUKOCYTE Trace (A) 04/20/2024 LEUKOCYTE Negative 07/17/2019 PROTEIN 100 (A) 07/17/2019 KETONES Negative 07/17/2019 UROBILINOGEN 0.2 04/20/2024 UROBILINOGEN 0.2 07/17/2019 BLOODHGB Negative 07/17/2019 Lab Results Component Value Date ALBCREATRA 1,684.1 (H) 07/14/2019 Immunology Profile Lab Results Component Value Date CRP <0.5 04/20/2024 No results found for: HAV , HEPAIGM , HEPBIGM , HEPBCAB , HBEAG , HEPCAB Imaging Echo complete W/ contrast Result Date: 04/23/2024 The left ventricle appears normal in size. Severely increased LV wall thickness No obvious wall motion abnormality noted Normal LV systolic function, ejection fraction 55-60% Grade 1 LV diastolic dysfunction The right ventricle appears normal in size and function The left and right atrium appears normal in size The aortic valve was not well visualized no obvious, regurgitation or stenosis The mitral valve leaflet appears thickened, posterior mitral valve leaflet mobility is severely reduced As per Doppler study mean gradient 4 mm of mercury suggestive of mild mitral stenosis per the left atrium does not appear enlarged There was trace mitral regurgitation Trace tricuspid regurgitation no stenosis Right ventricular systolic pressure 27 mm of mercury Trace pulmonary regurgitation no stenosis Normal aortic root dimension The IVC appears normal in size, normal respiratory variation No significant pericardial effusion seen Thank you for the consultation. Please do not hesitate to contact us for any further questions/concerns. We will continue to follow along with you. [facility] 08-08-2024 Plan of care note Update regarding code status: Spoke to patient's sister David, who is the POA at [phone]. Pt's sister states that she doesn't want any extra-ordinary measures done for her sister per her wishes and her sister's wishes was to be DNR/CC so she wants to change her code status from FULL CODE to DNR/CC. I have updated the change in epic as well. We will also get Palliative to help us with goals of care at this time. MARTIN GARBER MD 08/08/2024 [facility] 08-08-2024 Progress note Formatting of t his note is different from the original. Physical Therapy PT Type of Visit: Discharge from Therapy (Pt is from ECF with use of [facility] lift for transfers and dependent for all ADL's. No skilled PT needs and per CN does not require prior authorization to return to ECF. Will sign off.) [facility] Work Phone: 08-08-2024 Progress note Formatting of t his note is different from the original. Occupational Therapy OT Type of Visit: Discharge from Therapy (pt is from ECF, adrian lift to wheelchair and dependent for all ADLs, will sign off as no acute needs at this time. Please contact financial underwriter with any questions.) [facility] 08-08-2024 Nurse Note Discuss[address] with Dr. Jimenes orders for iv insulin and dex 50 for elevated K level informed pt will be going to dialysis at 1:30 so he said these orders can be held [facility] 08-08-2024 Consult note Associated Order (s): IP CONSULT TO GASTROENTEROLOGY [facility] Teaching GI Service Initial Gastroenterology/Hepatology Consultation Note IDENTIFYING DATA PATIENT: Janay Schilling ADMIT DATE: 08/07/2024 TIME OF EVALUATION: 08/08/2024 7:42 AM Reason for Consult: Acute blood loss anemia Admitting Physician: Martin Garber MD HISTORY OF PRESENT ILLNESS Janay Schilling is a 74 y.o. female with history of significant for end-stage renal disease on hemodialysis (Tuesday, , Tuesday) via left upper extremity AV fistula, hypertension, hyperlipidemia, diastolic heart failure, and type 2 diabetes mellitus, presented with one day of melena and three days of progressive dyspnea, for which the Gastroenterology team was consulted for evaluation of suspected upper gastrointestinal bleeding in the setting of acute blood loss anemia. Patient was initially evaluated at an outside hospital where she was found to have a hemoglobin of 5.9 g/dL prompting transfer to [facility] for further management. She reported associated dizziness and a self-limited episode of chest pain that had resolved by arrival. She denies any recent NSAID use, GI-related symptoms such as abdominal pain, nausea, vomiting, or hematemesis. Notably, she is on chronic low-dose aspirin, but no other anticoagulants or antiplatelet agents. \On admission, her vital signs were notable for BP 167/61 mmHg and O2 saturation of 100% on baseline 2 L nasal cannula. She was hemodynamically stable with normal respiratory effort and no signs of volume overload. Physical exam was unremarkable except for trace bilateral lower extremity edema. She received 2 units of packed red blood cells with interval hemoglobin improvement to 8.9 g/dL. Laboratory evaluation revealed normocytic anemia (initial Hgb 5.9 ? 8.9 g/dL), normal coagulation parameters (INR 0.9, aPTT 25 sec), and no leukocytosis. Iron studies, B12, and folate levels were ordered to evaluate for underlying etiology. Chest X-ray and EKG were without acute abnormalities; troponins were negative at 0 and 1 hour (both 28), and BNP was 166. CT abdomen and pelvis without contrast showed no acute intra-abdominal pathology, though chronic findings included atrophic kidneys with cysts, a calcified fibroid, and severe aortic calcifications. At the time of my evaluation the patient is very sleepy and not providing a good details during the preliminary around as well as the 2nd round with the patient that is why communicating with the primary team to confirm the baseline mental status as well as the validity of her ability to making decision especially that she has switched her code upon admission from the DNR cc to the full code so that we will be able to proceed with a further discussion for any possible endoscopic workup or decision making. GI HISTORY SUMMARY TABLE Last EGD Last colonoscopy Primary GI physician PAST MEDICAL, SURGICAL, FAMILY, and SOCIAL HISTORY Past Medical History: Diagnosis Date Anemia, unspecified Cellulitis Cellulitis, unspecified CHF (congestive heart failure) ([facility]) Chronic kidney disease, unspecified Depression Diabetes mellitus type 2, controlled ([facility] [place] [place]) Difficulty walking DM (diabetes mellitus) ([facility] [place] [place]) MALHOTRA (dyspnea on exertion) Heart failure, systolic ([facility] [place] [place]) Hyperlipidemia Hypertension Hypothyroidism Infectious viral hepatitis Muscle weakness (generalized) Obesity Obstructive chronic bronchitis without exacerbation ([facility] [place] [place]) Post-COVID syndrome resolved Stroke ([facility] [place] [place]) Past Surgical History: Procedure Laterality Date APPENDECTOMY CHOLECYSTECTOMY TONSILLECTOMY Family History Problem Relation Age of Onset Heart disease Mother Kidney disease Mother Alzheimer's disease Sister Hypertension Sister Kidney disease Brother Breast cancer Neg Hx Social History: Social History Tobacco Use Smoking status: Former Current packs/day: 0.00 Average packs/day: 1 pack/day for 53.9 years (53.9 ttl pk-yrs) Types: Cigarettes Start date: 1969 Quit date: 04/01/2023 Years since quittin.3 Smokeless tobacco: Never Vaping Use Vaping status: Never Used Substance Use Topics Alcohol use: No Drug use: No MEDICATIONS Allergies: Allergies Allergen Reactions Amoxicillin Doxycycline Home Medications: Prior to Admission medications Medication Sig Start Date End Date Taking? Authorizing Provider acetaminophen (TYLENOL) 500 mg tablet Take 1 tablet (500 mg total) by mouth every 4 (four) hours as needed for pain. Not In System Ref Prov albuterol (PROVENTIL HFA;VENTOLIN HFA) 90 mcg/actuation inhaler Inhale 2 puffs every 6 (six) hours as needed for wheezing. Not In System Ref Prov amLODIPine (NORVASC) 5 mg tablet Take 1 tablet (5 mg total) by mouth in the morning. Not In System Ref Prov aspirin 81 mg Take 1 tablet (81 mg total) by mouth in the morning. 04/23/24 IRINA Avilez atorvastatin (LIPITOR) 40 mg tablet Take 2 tablets (80 mg total) by mouth in the morning. Not In System Ref Prov bumetanide (BUMEX) 0.5 mg tablet Take 1 tablet (0.5 mg total) by mouth daily. 09/03/23 IRINA Villalobos carvediloL (COREG) 6.25 mg tablet Take 1 tablet (6.25 mg total) by mouth once daily at bedtime. 04/23/24 IRINA Avilez cetirizine (ZyrTEC) 10 mg tablet Take 1 tablet (10 mg total) by mouth in the morning. Not In System Ref Prov docusate sodium (COLACE) 100 mg capsule Take 1 capsule (100 mg total) by mouth in the morning and 1 capsule (100 mg total) before bedtime. Not In System Ref Prov ergocalciferol (DRISDOL) 1,250 mcg (50,000 unit) capsule Take 1 capsule (50,000 Units total) by mouth in the morning. Give 1 capsule by mouth one time daily starting on the and ending on the every month.. Not In System Ref Prov guaiFENesin (MUCINEX) 600 mg tablet extended release 12hr Take 1 tablet (600 mg total) by mouth every 12 (twelve) hours as needed (congestion). Not In System Ref Prov isosorbide mononitrate (IMDUR) 30 mg 24 hr tablet Take 1 tablet (30 mg total) by mouth daily. 07/19/19 MD SOLEDAD Agrawal U-100 INSULIN 100 unit/mL (3 mL) insulin pen Inject 12 Units under the skin in the morning. 06/26/23 Not In System Ref Prov levothyroxine (SYNTHROID, LEVOTHROID) 200 MCG tablet Take 1 tablet (200 mcg total) by mouth in the morning. 04/24/24 IRINA Avilez losartan (COZAAR) 100 mg tablet Take 1 tablet (100 mg total) by mouth in the morning. Patient not taking: Reported on 08/07/2024 04/24/24 IRINA Avilez magnesium hydroxide 400 mg/5 mL suspension Take 30 mL by mouth nightly as needed. Not In System Ref Prov midodrine (PROAMATINE) 10 mg tablet Take 1 tablet (10 mg total) by mouth every morning. Tuesday, Tuesday, Tuesday for hypotension with dialysis. Not In System Ref Prov polyethylene glycol (MIRALAX) 17 gram/dose powder Take 17 g by mouth in the morning. Not In System Ref Prov sennosides-docusate sodium (SENNA WITH DOCUSATE SODIUM) 8.6-50 mg Take 1 tablet by mouth in the morning and 1 tablet before bedtime. Not In System Ref Prov sertraline (ZOLOFT) 100 mg tablet Take 2 tablets (200 mg total) by mouth in the morning. Not In System Ref Prov sevelamer (RENVELA) 800 mg tablet Take 1 tablet (800 mg total) by mouth in the morning and 1 tablet (800 mg total) in the evening. Take with meals. Not In System Ref Prov tenapanor (XPHOZAH) 20 mg tablet Take by mouth. Not In System Ref Prov vitamin B ardzek-S-KZ-zinc cit (DIALYVITE 800 WITH ZINC 15) 0.8-15 mg tablet Take 1 tablet by mouth every morning. Not In System Ref Prov Current Medications: insulin lispro, 1-4 Units, subcutaneous, Nightly insulin lispro, 1-5 Units, subcutaneous, TID with meals levothyroxine, 200 mcg, oral, Daily pantoprazole, 40 mg, intravenous, Q12H sevelamer, 800 mg, oral, BID with meals sodium chloride, 3 mL, intravenous, Q12H MARC PRNs: acetaminophen, 650 mg, Q6H PRN calcium carbonate, 200 mg, TID PRN calcium gluconate, 3,000 mg, PRN calcium gluconate, 4,000 mg, PRN calcium gluconate, 2,000 mg, PRN dextrose, 15 g, PRN dextrose 5 % in water, 100 mL/hr, Continuous PRN dextrose 50 % in water (D50W), 25 mL, PRN glucagon (human recombinant), 1 mg, PRN hydrALAZINE, 10 mg, Q6H PRN ipratropium-albuteroL, 3 mL, Q6H PRN magnesium sulfate, 2,000 mg, PRN magnesium sulfate, 4,000 mg, PRN melatonin, 5 mg, Nightly PRN potassium chloride, 20-40 mEq, PRN Or potassium chloride, 20-40 mEq, PRN Or potassium chloride IV (Adult), 10 mEq, PRN sodium chloride, 3 mL, PRN sodium chloride, 25 mL, PRN sodium chloride 0.9 %, 20 mL/hr, Continuous PRN REVIEW OF SYSTEMS See HPI, otherwise ROS negative as below CONSTITUTIONAL: negative HEENT: negative RESPIRATORY: negative CARDIOVASCULAR: negative GASTROINTESTINAL: as in HPI GENITOURINARY: negative OBJECTIVE DATA Vitals: BP 187/60 Comment: rn notifed Pulse 65 Temp 36.9 C (98.5 F) (Oral) Resp 16 Wt 115.6 kg (254 lb 13.6 oz) SpO2 95% BMI 43.75 kg/m GEN: appears stated age, NAD HEENT: normocephalic, atraumatic, no conjunctival injection NECK: trachea appears midline, no gross lymphadenopathy CV: RRR, no peripheral edema PULM: breathing comfortably ABD: soft, non-tender, non-distended NEURO: alert and oriented x3 SKIN: no rashes LABS AND IMAGING CBC: Lab Results Component Value Date WBC 6.4 08/08/2024 HGB 7.6 (L) 08/08/2024 HCT 23.3 (L) 08/08/2024 MCV 97 08/08/2024 RDW 24.6 (H) 08/08/2024 PLT 124 (L) 08/08/2024 CMP: Lab Results Component Value Date K 5.5 (H) 08/08/2024 CL 101 08/08/2024 CO2 27 08/08/2024 BUN 57 (H) 08/08/2024 GLU 99 08/08/2024 GLU 119 (H) 08/08/2024 Lipase: No components found for: LIP Amylase: No results found for: WANG Ionized Calcium: No components found for: IONCA Magnesium: Lab Results Component Value Date MG 2.0 08/08/2024 Phosphorus: No components found for: PO4 PT/INR: Lab Results Component Value Date INR 0.9 08/07/2024 TSH: Lab Results Component Value Date TSH 29.36 (H) 04/21/2024 VITAMIN B12: No components found for: B12 FOLATE: Lab Results Component Value Date FOLATE 5.4 (L) 08/08/2024 IRON: No results found for: FE Iron Saturation: No components found for: PERCENTFESAT TIBC: Lab Results Component Value Date TIBC 242 (L) 08/08/2024 FERRITIN: Lab Results Component Value Date FERRITIN 504 (H) 08/08/2024 MICRO Blood Culture: No components found for: CBLOOD , CFUNGUSBL Stool Culture: No components found for: CSTOOL IMAGING: CT abdomen and pelvis without contrast Result Date: 08/06/2024 EXAM: ABDOMEN AND PELVIS CT WITHOUT CONTRAST CLINICAL INFORMATION: gi bleeding and epigastric and chest pain. TECHNIQUE: Routine unenhanced CT of the abdomen and pelvis was performed utilizing 5 mm axial reconstructions. Coronal and sagittal reformatted images as were obtained and reviewed. Automated exposure control was utilized. COMPARISON: 12/06/2023 FINDINGS: The limited visualized lung bases demonstrates bibasilar atelectasis and/or scarring. Again seen are chronically atrophic kidneys. Calcifications within the renal sam are compatible with a vascular etiology. There are no convincing ureteral stones or evidence for collecting system dilatation in either kidney. Cysts in both kidneys are again noted. The gallbladder is absent. Stable appearance of bilateral adrenal nodules, suspected adenomas. The liver, spleen, and pancreas are unremarkable within the limitations of an unenhanced CT. There are no dilated loops of bowel or evidence for pneumatosis or free air. There is no significant free fluid. Again seen are very severe dense calcifications throughout a normal diameter abdominal aorta. 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 A densely calcified fibroid is again noted. IMPRESSION: 1. No convincing evidence for acute abnormalities in the abdomen and pelvis, within the limitations of an unenhanced CT. 2. Stable appearance of multiple chronic and incidental CT findings, as above. All CT scans at this facility use dose modulation, iterative reconstruction, and/or weight based dosing when appropriate to reduce radiation dose to as low as reasonably achievable. Finalized by Armando Milton MD on 08/06/2024 11:07 PM X-ray chest 1 view Result Date: 08/06/2024 Single view chest XR CHEST 1 VW History: chest pain Comparison: April 21, 2024 Impression: * No consolidation or pleural fluid. No acute findings. Finalized by Elias Nunn MD on 08/06/2024 9:46 PM ASSESSMENT AND PLAN Janay Schilling is a 74 y.o. female who has past medical history of hypertension, end-stage renal disease on hemodialysis, heart failure and was admitted for acute symptomatic anemia with a hemoglobin of 5.9 from the baseline of 11.9 on April 2024. Patient denying any previous endoscopic workup, no colonoscopy or EGD and the CT scan without significant finding. Endorsing fatigue and shortness of breath with chest pain and discomfort and dark stool. Assessment # Upper gastrointestinal bleeding ? Presentation with melena and acute blood loss anemia (Hgb 5.9 ? 8.9 g/dL post-transfusion x2 units PRBCs) in the setting of chronic low-dose aspirin use. ? No overt hematemesis, abdominal pain, or NSAID use. ? Normocytic anemia with no leukocytosis and stable vitals on admission. ? Currently on IV PPI and NPO status. #End-stage renal disease on hemodialysis ? Tri-weekly schedule (Tuesday, , Tuesday) via left upper extremity AV fistula. ? No missed sessions or signs of volume overload on exam. ? BNP 166; trace bilateral LE edema. ? Nephrology consulted for inpatient dialysis coordination. #Diastolic heart failure ? History of diastolic dysfunction, no evidence of acute decompensation or volume overload. Plan trend the hemoglobin and hematocrit Q 6 hours . transfuse PRBC accordingly to keep hemoglobin over 8 giving the IV Protonix drip. Monitor serial hemoglobin and hematocrit every 6-8 hours or as clinically indicated. we will discuss with the patient and the team possible endoscopic intervention Keep the patient NPO At the time of evaluation, the patient was very sleepy and unable to provide detailed information during both initial and follow-up assessments. Therefore, I communicated with the primary team to confirm her baseline mental status and assess her decision-making capacity, especially since she changed her code status from DNR-CC to full code upon admission. This clarification is essential before proceeding with discussions regarding potential endoscopic evaluations or further medical decisions. Gastroenterology team will continue to follow up closely. This consult will be discussed with attending physician. If you have any questions please feel free to contact the GI Service. Thank you for allowing us to participate in the care of Janay Schilling. [facility] 7 am to 5pm weekdays in house 5 pm to 7 am or weekends please contact the flocculator operator to page the fellow conservation science officer Cosigned by King Radford MD at 08/08/2024 10:05 AM EDT Associated attestation - King Radford MD - 08/08/2024 10:05 AM EDT Seen and discussed with fellow, agree with history/physical exam/plan. Will eventually need endoscopy depending upon mental status as well as code status. [facility] 08-08-2024 Plan of care note Problem: Pain Goal: Patient goal is pain score less than 4, able to rest, and participant in treatment plan as appropriate Description: INTERVENTIONS: 1. Encourage patient or legal u.s. representative to report early pain and ask for pain medicine when needed 2. Assess pain using appropriate pain scale and include the scale used when documenting 3. Administer analgesics based on type and severity of pain and evaluate response within appropriate time frame 4. Implement non-pharmacological measures as appropriate and evaluate response 5. Consider cultural and social influences on pain and pain management 6. Notify LIP if interventions ineffective or patient reports new pain 7. Monitor vital signs including pulse ox, end-tidal CO2 based on pain intervention 8. Reassess pain per policy 9. Teach patient or legal u.s. representative interventions for comforting Outcome: Progressing Note: Evaluation of progress towards goal: Patient's pain is assessed and documented with appropriate pain scale. Patient's pain is relieved with PRN medications. Problem: Safety Goal: Patient will be injury free during hospitalization Description: INTERVENTIONS: 1. Assess patient's risk for falls and implement fall prevention plan of care per policy 2. Provide and maintain a safe environment 3. Proper use of double Identifiers 4. Medication administration using the 5 rights 5. Hand hygiene 6. Specimens are labeled at the bedside 7. Instruct patient/ patient u.s. representative about use of safety devices 8. Include patient/ patient u.s. representative in decisions related to safety Outcome: Progressing Note: Evaluation of progress towards goal: Pt remains free from falls and injury, hand hygiene in and out of room, specimens labeled at bedside Problem: Infection Goal: Absence of infection during hospitalization Description: INTERVENTIONS 1. Assess and monitor for signs and symptoms of infection. 2. Monitor lab/diagnostic results. 3. Monitor all insertion sites i.e., indwelling lines, tubes and drains. 4. Monitor endotracheal (as able) and nasal secretions for changes in amount and color. 5. Administer medications as ordered. 6. Instruct and encourage patient and family to use good hand hygiene technique. 7. Identify and instruct patient/patient u.s. representative in use of appropriate isolation precautions for identified infection/symptoms. 8. Provide and discuss with patient/patient u.s. representative on educational MDRO sheet. 9. Encourage and monitor nutritional status daily and consult computer network support specialist if indicated. 10. Implement neutropenic guidelines as needed. Outcome: Progressing Note: Evaluation of progress towards goal: Pt vitals and labs monitored, proper standard precautions for infection prevention, iv antibiotics, all insertionl sites monitored for infection Problem: Moderate - High Risk Fall Score Description: Mejia Fall Score of =/> 25 or indicated by [facility] Assessment Goal: Patient should be free from fall Description: Interventions: 1. [place] to environment 2. Hourly rounds addressing the 4 P's (Pain, Positioning, Possessions, Potty) 3. Clear area of hazards (spills, clutter, electrical cords, unnecessary equipment) 4. Place equipment (bed & TV controls, call light, phone, urinal) within reach 5. Encourage patient to wear glasses and hearing aides as appropriate 6. Maintain bed in lowest position 7. Lock wheels on bed/wheelchair 8. Provide adequate lighting, including night light 9. Assess need for additional bedding, food/fluids, pain med's prior to sleep/routinely 10. Provide gripper slippers or personal non-skid footwear 11. Teach patient and patient u.s. representative to maintain environment for safety and engage in all aspects of fall prevention program 12. Remind patient to call for help before getting out of bed 13. Initiate bed/chair/exit alarms supportive devices as appropriate, (chair wedge, no-skid floor mat, raised edge mattress, hip protectors) 14. Locate patient bed assignment for optimal visualization 15. Evaluate and identify Safe Patient Handling Equipment needs 16. Provide supervision when out of bed or chair 17. Utilize gait belt as needed to assist with ambulation 18. Place adaptive equipment (cane, walker) within reach 19. Request patient u.s. representative bring adaptive equipment/mobility aids from home or obtain and provide as needed 20. Consult pharmacy regarding effects of med's affecting mobility, cognition, and alternatives 21. Obtain physician order for PT if risk factors associated with mobility are present 22. Obtain physician order for OT as appropriate 23. Utilize diversional activities 24. Educate patient and patient u.s. representative how to maintain a safe environment during visitation times (notify nurse prior to leaving bedside) 25. Consider appropriateness of medical or non-medical pathologist 26. Set up voiding schedule as appropriate (every 2 hours) Outcome: Progressing Note: Evaluation of progress towards goal: Patient remains free from falls and injuries, 5 P's addressed, bed is in a locked position and has call light within reach. [facility] 08-07-2024 History and physical note [facility] HISTORY AND PHYSICAL Date of Service: 08/07/2024 Patient Name: Janay Schilling : 1950 PCP: DEENA PERKINS MD Chief Complaint: Dark Stool over last day, chest pain + shortness of breath HPI: Janay Schilling is a 74 y.o. female with a PMH significant for ESRD on dialysis Tuesday, and Tuesday via left upper extremity AV fistula, hypertension, hyperlipidemia, diastolic heart failure, and type 2 diabetes who presented with melena over the last 24 hours and of breath over the last 3 days. Patient also had some chest pain that had resolved by the time she was transferred here to [facility]. Patient also reports she had some dizziness on arrival to outside ED. Patient was transferred from [facility] to [facility] for GI eval. Pt's last dialysis session was 08/06 and pt is compliant with outpatient dialysis sessions. Pt is on baseline 2 L of oxygen at home. Pt denies NSAID use and is not on blood thinners, pt is on daily baby aspirin. ED Course: Patient outside ED found the have a hemoglobin of 5.9, and had positive fecal occult blood. EKG did not show any ST changes in troponin 0 at 1 hr both 28. BNP of 166. No acute findings on CT abdomen/pelvis. Vitals are BP 172/59, pulse 76, resp 18, pulse ox 95% on 2 L of O2,On my exam, patient's lung exam is CTAB. Pt has trace edema of LE. At OSH patient elected to have her code status DNRCC, I on admission clarified what her goals of care are and she said that she wanted a full workup, and in case of cardiopulmonary arrest with she would CPR and intubation. Patient says that she is totally not sure that she wants to be full code but this time this is which she chose her code status to be. Subjective Past Medical History: Past Medical History: Diagnosis Date Anemia, unspecified Cellulitis Cellulitis, unspecified CHF (congestive heart failure) ([facility]) Chronic kidney disease, unspecified Depression Diabetes mellitus type 2, controlled ([facility] [place] [place]) Difficulty walking DM (diabetes mellitus) ([facility] [place] [place]) MALHOTRA (dyspnea on exertion) Heart failure, systolic ([facility] [place] [place]) Hyperlipidemia Hypertension Hypothyroidism Infectious viral hepatitis Muscle weakness (generalized) Obesity Obstructive chronic bronchitis without exacerbation ([facility] [place] [place]) Post-COVID syndrome resolved Stroke ([facility] [place] [place]) Past Surgical History: Past Surgical History: Procedure Laterality Date APPENDECTOMY CHOLECYSTECTOMY TONSILLECTOMY Home Medications: Prior to Admission medications Medication Sig Start Date End Date Taking? Authorizing Provider acetaminophen (TYLENOL) 500 mg tablet Take 1 tablet (500 mg total) by mouth every 4 (four) hours as needed for pain. Not In System Ref Prov albuterol (PROVENTIL HFA;VENTOLIN HFA) 90 mcg/actuation inhaler Inhale 2 puffs every 6 (six) hours as needed for wheezing. Not In System Ref Prov amLODIPine (NORVASC) 5 mg tablet Take 1 tablet (5 mg total) by mouth in the morning. Not In System Ref Prov aspirin 81 mg Take 1 tablet (81 mg total) by mouth in the morning. 04/23/24 Roopa Dominguez APRN-EUGENIA atorvastatin (LIPITOR) 40 mg tablet Take 2 tablets (80 mg total) by mouth in the morning. Not In System Ref Prov bumetanide (BUMEX) 0.5 mg tablet Take 1 tablet (0.5 mg total) by mouth daily. 09/03/23 Libby Griffiths APRN-EUGENIA carvediloL (COREG) 6.25 mg tablet Take 1 tablet (6.25 mg total) by mouth once daily at bedtime. 04/23/24 IRINA Avliez cetirizine (ZyrTEC) 10 mg tablet Take 1 tablet (10 mg total) by mouth in the morning. Not In System Ref Prov docusate sodium (COLACE) 100 mg capsule Take 1 capsule (100 mg total) by mouth in the morning and 1 capsule (100 mg total) before bedtime. Not In System Ref Prov ergocalciferol (DRISDOL) 1,250 mcg (50,000 unit) capsule Take 1 capsule (50,000 Units total) by mouth in the morning. Give 1 capsule by mouth one time daily starting on the and ending on the every month.. Not In System Ref Prov guaiFENesin (MUCINEX) 600 mg tablet extended release 12hr Take 1 tablet (600 mg total) by mouth every 12 (twelve) hours as needed (congestion). Not In System Ref Prov isosorbide mononitrate (IMDUR) 30 mg 24 hr tablet Take 1 tablet (30 mg total) by mouth daily. 07/19/19 MD SOLEDAD Agrawal U-100 INSULIN 100 unit/mL (3 mL) insulin pen Inject 12 Units under the skin in the morning. 06/26/23 Not In System Ref Prov levothyroxine (SYNTHROID, LEVOTHROID) 200 MCG tablet Take 1 tablet (200 mcg total) by mouth in the morning. 04/24/24 IRINA Avilez losartan (COZAAR) 100 mg tablet Take 1 tablet (100 mg total) by mouth in the morning. Patient not taking: Reported on 08/07/2024 04/24/24 IRINA Avilez magnesium hydroxide 400 mg/5 mL suspension Take 30 mL by mouth nightly as needed. Not In System Ref Prov midodrine (PROAMATINE) 10 mg tablet Take 1 tablet (10 mg total) by mouth every morning. Tuesday, Tuesday, Tuesday for hypotension with dialysis. Not In System Ref Prov polyethylene glycol (MIRALAX) 17 gram/dose powder Take 17 g by mouth in the morning. Not In System Ref Prov sennosides-docusate sodium (SENNA WITH DOCUSATE SODIUM) 8.6-50 mg Take 1 tablet by mouth in the morning and 1 tablet before bedtime. Not In System Ref Prov sertraline (ZOLOFT) 100 mg tablet Take 2 tablets (200 mg total) by mouth in the morning. Not In System Ref Prov sevelamer (RENVELA) 800 mg tablet Take 1 tablet (800 mg total) by mouth in the morning and 1 tablet (800 mg total) in the evening. Take with meals. Not In System Ref Prov tenapanor (XPHOZAH) 20 mg tablet Take by mouth. Not In System Ref Prov vitamin B [id number] cit (DIALYVITE 800 WITH ZINC 15) 0.8-15 mg tablet Take 1 tablet by mouth every morning. Not In System Ref Prov Allergies: Amoxicillin and Doxycycline Social History: reports that she quit smoking about 16 months ago. Her smoking use included cigarettes. She started smoking about 55 years ago. She has a 53.9 pack-year smoking history. She has never used smokeless tobacco. She reports that she does not drink alcohol and does not use drugs. Family History: Family History Problem Relation Age of Onset Heart disease Mother Kidney disease Mother Alzheimer's disease Sister Hypertension Sister Kidney disease Brother Breast cancer Neg Hx Review of Systems: Review of Systems Constitutional: Positive for fatigue. Negative for chills and fever. Respiratory: Positive for shortness of breath. Negative for chest tightness and wheezing. Cardiovascular: Positive for chest pain/discomfort. Negative for palpitations and leg swelling. Gastrointestinal: Positive for blood in stool (melena). Negative for abdominal pain, nausea and vomiting. Genitourinary: Negative for dysuria and frequency. Objective Vital Signs: Patient Vitals for the past 24 hrs: BP Temp Temp src Pulse Resp SpO2 08/07/24 2300 167/61 37 C (98.6 F) Oral 71 16 100 % No intake or output data in the 24 hours ending 08/07/24 2309 Admission weight: Labs/Imaging: Recent Results (from the past 24 hours) Type and screen(includes indirect vamsi) Collection Time: 08/06/24 11:21 PM Result Value Ref Range Antibody Screen Negative Type and screen(includes indirect vamsi) Collection Time: 08/06/24 11:21 PM Result Value Ref Range ABO A RH Positive Protime & INR Collection Time: 08/07/24 4:48 AM Result Value Ref Range Protime 10.6 9.8 - 13.2 sec Inr 0.9 0.9 - 1.2 APTT Collection Time: 08/07/24 4:48 AM Result Value Ref Range aPTT 25 (L) 26 - 37 sec Hemoglobin and hematocrit, blood Collection Time: 08/07/24 4:48 AM Result Value Ref Range Hemoglobin 7.7 (L) 11.7 - 15.5 g/dL Hematocrit 22.7 (L) 35 - 47 % Hemoglobin and hematocrit, blood Collection Time: 08/07/24 11:56 AM Result Value Ref Range Hemoglobin 8.7 (L) 11.7 - 15.5 g/dL Hematocrit 25.6 (L) 35 - 47 % Bedside Glucose *Place/Obtain serum glucose if >500 per glucometer. Collection Time: 08/07/24 3:39 PM Result Value Ref Range Bedside glucose 115 (H) 65 - 99 mg/dL Hemoglobin and hematocrit, blood Collection Time: 08/07/24 6:19 PM Result Value Ref Range Hemoglobin 8.9 (L) 11.7 - 15.5 g/dL Hematocrit 26.4 (L) 35 - 47 % Microbiology Results No results found for the last [address] abdomen and pelvis without contrast Result Date: 08/06/2024 EXAM: ABDOMEN AND PELVIS CT WITHOUT CONTRAST CLINICAL INFORMATION: gi bleeding and epigastric and chest pain. TECHNIQUE: Routine unenhanced CT of the abdomen and pelvis was performed utilizing 5 mm axial reconstructions. Coronal and sagittal reformatted images as were obtained and reviewed. Automated exposure control was utilized. COMPARISON: 12/06/2023 FINDINGS: The limited visualized lung bases demonstrates bibasilar atelectasis and/or scarring. Again seen are chronically atrophic kidneys. Calcifications within the renal sam are compatible with a vascular etiology. There are no convincing ureteral stones or evidence for collecting system dilatation in either kidney. Cysts in both kidneys are again noted. The gallbladder is absent. Stable appearance of bilateral adrenal nodules, suspected adenomas. The liver, spleen, and pancreas are unremarkable within the limitations of an unenhanced CT. There are no dilated loops of bowel or evidence for pneumatosis or free air. There is no significant free fluid. Again seen are very severe dense calcifications throughout a normal diameter abdominal aorta. 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 A densely calcified fibroid is again noted. IMPRESSION: 1. No convincing evidence for acute abnormalities in the abdomen and pelvis, within the limitations of an unenhanced CT. 2. Stable appearance of multiple chronic and incidental CT findings, as above. All CT scans at this facility use dose modulation, iterative reconstruction, and/or weight based dosing when appropriate to reduce radiation dose to as low as reasonably achievable. Finalized by Armando Milton MD on 08/06/2024 11:07 PM X-ray chest 1 view Result Date: 08/06/2024 Single view chest XR CHEST 1 VW History: chest pain Comparison: April 21, 2024 Impression: * No consolidation or pleural fluid. No acute findings. Finalized by Elias Nunn MD on 08/06/2024 9:46 PM Physical Exam: Physical Exam Constitutional: General: She is not in acute distress. Appearance: She is obese. She is not toxic-appearing. HENT: Head: Normocephalic and atraumatic. Nose: Nose normal. Mouth/Throat: Mouth: Mucous membranes are moist. Pharynx: Oropharynx is clear. No oropharyngeal exudate. Eyes: Pupils: Pupils are equal, round, and reactive to light. Pulmonary: Effort: Pulmonary effort is normal. No respiratory distress. Breath sounds: Normal breath sounds. No wheezing. Abdominal: General: There is no distension. Tenderness: There is no abdominal tenderness. Musculoskeletal: Right lower leg: No edema. Left lower leg: No edema. Skin: Capillary Refill: Capillary refill takes less than 2 seconds. Neurological: Mental Status: She is alert and oriented to person, place, and time. Psychiatric: Mood and Affect: Mood normal. ASSESSMENT & PLAN: Janay Schilling is a 74 y.o. female who presents with melena. Melena concerning for Upper GI bleed Acute on chronic macrocytic anemia, HgB of 5.9 on presentation H and H q12H Transfuse for HgB less than 7, pt received 2 unit pRBC at OSH IV protonix BID Check b12, folate, and iron studies Consult GI Symptomatic Anemia resulting in shortness of breath and chest pain Resolved after pt was transfused with blood, pt not fluid overloaded on exam and did not miss dialysis sessions EKG without ischemic changes and troponin 0 + 1 hr both 28, will do additional cardiac workup if pt has another episode of chest pain Patient unsure what she wants to do with her code status. Recommend goals of care discussion again in am to talk with patient as she went from DNRCC to FULL code.Pt at time of my exam reported she wanted to be FULL code for now. Chronic Issues: ESRD on HD Consult nephrology for dialysis while inpatient Essential hypertension Hold home BP meds in setting of GI bleed Hyperlipidemia Resume home atorvastatin Diastolic heart failure, not in exacerbation Type 2 diabetes, insulin dependent LCS while inpatient, can resume home lantus at reduced dose once home meds are confirmed Hypothyroidism Resume home levothyroxine Consults: GI, nephrology DVT prophylaxis: on hold due to GI bleed Diet: NPO at midnight Fluids: PO Disposition: Admit to Inpatient Code Status: FULL See attending attestation for additional details. This note was created with the assistance of a speech-recognition program. Every effort was made to ensure accuracy; however, inadvertent computerized stud master/mistress errors may be present. Brooklyn Heath MD Internal Medicine Resident 08/07/24 Cosigned by Martin Garber MD at 08/08/2024 9:41 PM EDT Associated attestation - Martin Garber MD - 08/08/2024 9:41 PM EDT Attending Note I have seen and discussed the patient during rounds. I performed, participated and was present during the critical/flores portions of the service. I was directly involved in the management and treatment plan of the patient. I reviewed the resident's note and agree with the findings and plan. Comments: A 74 year old F with PMH of ESRD on HD TTS, HTN, HLD, DM2 and diastolic heart failure who resides at [facility] was evaluated at [facility] for chest pain. Cardiac work up was essentially unremarkable however patient was found to have Hb of 5.9 with positive fecal occult blood. Pt was transfused and transferred to [facility] for GI evaluation. Pt during the interview was lethargic however she did respond when sternal rubbed. ABG reviewed. No clear etiology for her AMS. GI and Nephrology consulted. Electronically signed by: Martin Garber MD This note is created with the assistance of a speech-recognition program. While intending to generate a document that actually reflects the content of the visit, no guarantees can be provided that every mistake has been identified and corrected by editing. [employer] Work Phone: 08-07-2024 History and physical note IMS-2 HISTORY AND PHYSICAL Date of Service: 08/07/2024 Patient Name: Janay Schilling : 1950 PCP: DEENA PERKINS MD Chief Complaint: Dark Stool over last day, chest pain + shortness of breath HPI: Janay Schilling is a 74 y.o. female with a PMH significant for ESRD on dialysis Tuesday, and Tuesday via left upper extremity AV fistula, hypertension, hyperlipidemia, diastolic heart failure, and type 2 diabetes who presented with melena over the last 24 hours and of breath over the last 3 days. Patient also had some chest pain that had resolved by the time she was transferred here to [facility]. Patient also reports she had some dizziness on arrival to outside ED. Patient was transferred from [facility] to [facility] for GI eval. Pt's last dialysis session was 08/06 and pt is compliant with outpatient dialysis sessions. Pt is on baseline 2 L of oxygen at home. Pt denies NSAID use and is not on blood thinners, pt is on daily baby aspirin. ED Course: Patient outside ED found the have a hemoglobin of 5.9, and had positive fecal occult blood. EKG did not show any ST changes in troponin 0 at 1 hr both 28. BNP of 166. No acute findings on CT abdomen/pelvis. Vitals are BP 172/59, pulse 76, resp 18, pulse ox 95% on 2 L of O2,On my exam, patient's lung exam is CTAB. Pt has trace edema of LE. At OSH patient elected to have her code status DNRCC, I on admission clarified what her goals of care are and she said that she wanted a full workup, and in case of cardiopulmonary arrest with she would CPR and intubation. Patient says that she is totally not sure that she wants to be full code but this time this is which she chose her code status to be. Subjective Past Medical History: Past Medical History: Diagnosis Date Anemia, unspecified Cellulitis Cellulitis, unspecified CHF (congestive heart failure) ([facility]) Chronic kidney disease, unspecified Depression Diabetes mellitus type 2, controlled ([facility]) Difficulty walking DM (diabetes mellitus) ([facility]) MALHOTRA (dyspnea on exertion) Heart failure, systolic ([facility]) Hyperlipidemia Hypertension Hypothyroidism Infectious viral hepatitis Muscle weakness (generalized) Obesity Obstructive chronic bronchitis without exacerbation (CMS-HCC) Post-COVID syndrome resolved Stroke (CMS-HCC) Past Surgical History: Past Surgical History: Procedure Laterality Date APPENDECTOMY CHOLECYSTECTOMY TONSILLECTOMY Home Medications: Prior to Admission medications Medication Sig Start Date End Date Taking? Authorizing Provider acetaminophen (TYLENOL) 500 mg tablet Take 1 tablet (500 mg total) by mouth every 4 (four) hours as needed for pain. Not In System Ref Prov albuterol (PROVENTIL HFA;VENTOLIN HFA) 90 mcg/actuation inhaler Inhale 2 puffs every 6 (six) hours as needed for wheezing. Not In System Ref Prov amLODIPine (NORVASC) 5 mg tablet Take 1 tablet (5 mg total) by mouth in the morning. Not In System Ref Prov aspirin 81 mg Take 1 tablet (81 mg total) by mouth in the morning. 04/23/24 IRINA Avilez atorvastatin (LIPITOR) 40 mg tablet Take 2 tablets (80 mg total) by mouth in the morning. Not In System Ref Prov bumetanide (BUMEX) 0.5 mg tablet Take 1 tablet (0.5 mg total) by mouth daily. 09/03/23 Libby Griffiths APRN-EUGENIA carvediloL (COREG) 6.25 mg tablet Take 1 tablet (6.25 mg total) by mouth once daily at bedtime. 04/23/24 IRINA Avilez cetirizine (ZyrTEC) 10 mg tablet Take 1 tablet (10 mg total) by mouth in the morning. Not In System Ref Prov docusate sodium (COLACE) 100 mg capsule Take 1 capsule (100 mg total) by mouth in the morning and 1 capsule (100 mg total) before bedtime. Not In System Ref Prov ergocalciferol (DRISDOL) 1,250 mcg (50,000 unit) capsule Take 1 capsule (50,000 Units total) by mouth in the morning. Give 1 capsule by mouth one time daily starting on the and ending on the every month.. Not In System Ref Prov guaiFENesin (MUCINEX) 600 mg tablet extended release 12hr Take 1 tablet (600 mg total) by mouth every 12 (twelve) hours as needed (congestion). Not In System Ref Prov isosorbide mononitrate (IMDUR) 30 mg 24 hr tablet Take 1 tablet (30 mg total) by mouth daily. 07/19/19 MD SOLEDAD Agrawal U-100 INSULIN 100 unit/mL (3 mL) insulin pen Inject 12 Units under the skin in the morning. 06/26/23 Not In System Ref Prov levothyroxine (SYNTHROID, LEVOTHROID) 200 MCG tablet Take 1 tablet (200 mcg total) by mouth in the morning. 04/24/24 IRINA Avilez losartan (COZAAR) 100 mg tablet Take 1 tablet (100 mg total) by mouth in the morning. Patient not taking: Reported on 08/07/2024 04/24/24 IRINA Avilez magnesium hydroxide 400 mg/5 mL suspension Take 30 mL by mouth nightly as needed. Not In System Ref Prov midodrine (PROAMATINE) 10 mg tablet Take 1 tablet (10 mg total) by mouth every morning. Tuesday, Tuesday, Tuesday for hypotension with dialysis. Not In System Ref Prov polyethylene glycol (MIRALAX) 17 gram/dose powder Take 17 g by mouth in the morning. Not In System Ref Prov sennosides-docusate sodium (SENNA WITH DOCUSATE SODIUM) 8.6-50 mg Take 1 tablet by mouth in the morning and 1 tablet before bedtime. Not In System Ref Prov sertraline (ZOLOFT) 100 mg tablet Take 2 tablets (200 mg total) by mouth in the morning. Not In System Ref Prov sevelamer (RENVELA) 800 mg tablet Take 1 tablet (800 mg total) by mouth in the morning and 1 tablet (800 mg total) in the evening. Take with meals. Not In System Ref Prov tenapanor (XPHOZAH) 20 mg tablet Take by mouth. Not In System Ref Prov vitamin B pbdpok-B-GT-zinc cit (DIALYVITE 800 WITH ZINC 15) 0.8-15 mg tablet Take 1 tablet by mouth every morning. Not In System Ref Prov Allergies: Amoxicillin and Doxycycline Social History: reports that she quit smoking about 16 months ago. Her smoking use included cigarettes. She started smoking about 55 years ago. She has a 53.9 pack-year smoking history. She has never used smokeless tobacco. She reports that she does not drink alcohol and does not use drugs. Family History: Family History Problem Relation Age of Onset Heart disease Mother Kidney disease Mother Alzheimer's disease Sister Hypertension Sister Kidney disease Brother Breast cancer Neg Hx Review of Systems: Review of Systems Constitutional: Positive for fatigue. Negative for chills and fever. Respiratory: Positive for shortness of breath. Negative for chest tightness and wheezing. Cardiovascular: Positive for chest pain/discomfort. Negative for palpitations and leg swelling. Gastrointestinal: Positive for blood in stool (melena). Negative for abdominal pain, nausea and vomiting. Genitourinary: Negative for dysuria and frequency. Objective Vital Signs: Patient Vitals for the past 24 hrs: BP Temp Temp src Pulse Resp SpO2 08/07/24 2300 167/61 37 C (98.6 F) Oral 71 16 100 % No intake or output data in the 24 hours ending 08/07/242308 Admission weight: Labs/Imaging: Recent Results (from the past 24 hours) Type and screen(includes indirect vamsi) Collection Time: 08/06/24 11:21 PM Result Value Ref Range Antibody Screen Negative Type and screen(includes indirect vamsi) Collection Time: 08/06/24 11:21 PM Result Value Ref Range ABO A RH Positive Protime & INR Collection Time: 08/07/24 4:48 AM Result Value Ref Range Protime 10.6 9.8 - 13.2 sec Inr 0.9 0.9 - 1.2 APTT Collection Time: 08/07/24 4:48 AM Result Value Ref Range aPTT 25 (L) 26 - 37 sec Hemoglobin and hematocrit, blood Collection Time: 08/07/24 4:48 AM Result Value Ref Range Hemoglobin 7.7 (L) 11.7 - 15.5 g/dL Hematocrit 22.7 (L) 35 - 47 % Hemoglobin and hematocrit, blood Collection Time: 08/07/24 11:56 AM Result Value Ref Range Hemoglobin 8.7 (L) 11.7 - 15.5 g/dL Hematocrit 25.6 (L) 35 - 47 % Bedside Glucose *Place/Obtain serum glucose if >500 per glucometer. Collection Time: 08/07/24 3:39 PM Result Value Ref Range Bedside glucose 115 (H) 65 - 99 mg/dL Hemoglobin and hematocrit, blood Collection Time: 08/07/24 6:19 PM Result Value Ref Range Hemoglobin 8.9 (L) 11.7 - 15.5 g/dL Hematocrit 26.4 (L) 35 - 47 % Microbiology Results No results found for the last [address] abdomen and pelvis without contrast Result Date: 08/06/2024 EXAM: ABDOMEN AND PELVIS CT WITHOUT CONTRAST CLINICAL INFORMATION: gi bleeding and epigastric and chest pain. TECHNIQUE: Routine unenhanced CT of the abdomen and pelvis was performed utilizing 5 mm axial reconstructions. Coronal and sagittal reformatted images as were obtained and reviewed. Automated exposure control was utilized. COMPARISON: 12/06/2023 FINDINGS: The limited visualized lung bases demonstrates bibasilar atelectasis and/or scarring. Again seen are chronically atrophic kidneys. Calcifications within the renal sam are compatible with a vascular etiology. There are no convincing ureteral stones or evidence for collecting system dilatation in either kidney. Cysts in both kidneys are again noted. The gallbladder is absent. Stable appearance of bilateral adrenal nodules, suspected adenomas. The liver, spleen, and pancreas are unremarkable within the limitations of an unenhanced CT. There are no dilated loops of bowel or evidence for pneumatosis or free air. There is no significant free fluid. Again seen are very severe dense calcifications throughout a normal diameter abdominal aorta. 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 A densely calcified fibroid is again noted. IMPRESSION: 1. No convincing evidence for acute abnormalities in the abdomen and pelvis, within the limitations of an unenhanced CT. 2. Stable appearance of multiple chronic and incidental CT findings, as above. All CT scans at this facility use dose modulation, iterative reconstruction, and/or weight based dosing when appropriate to reduce radiation dose to as low as reasonably achievable. Finalized by Armando Milton MD on 08/06/2024 11:07 PM X-ray chest 1 view Result Date: 08/06/2024 Single view chest XR CHEST 1 VW History: chest pain Comparison: April 21, 2024 Impression: * No consolidation or pleural fluid. No acute findings. Finalized by Elias Nunn MD on 08/06/2024 9:46 PM Physical Exam: Physical Exam Constitutional: General: She is not in acute distress. Appearance: She is obese. She is not toxic-appearing. HENT: Head: Normocephalic and atraumatic. Nose: Nose normal. Mouth/Throat: Mouth: Mucous membranes are moist. Pharynx: Oropharynx is clear. No oropharyngeal exudate. Eyes: Pupils: Pupils are equal, round, and reactive to light. Pulmonary: Effort: Pulmonary effort is normal. No respiratory distress. Breath sounds: Normal breath sounds. No wheezing. Abdominal: General: There is no distension. Tenderness: There is no abdominal tenderness. Musculoskeletal: Right lower leg: No edema. Left lower leg: No edema. Skin: Capillary Refill: Capillary refill takes less than 2 seconds. Neurological: Mental Status: She is alert and oriented to person, place, and time. Psychiatric: Mood and Affect: Mood normal. ASSESSMENT & PLAN: Janay Schilling is a 74 y.o. female who presents with melena. Melena concerning for Upper GI bleed Acute on chronic macrocytic anemia, HgB of 5.9 on presentation H and H q12H Transfuse for HgB less than 7, pt received 2 unit pRBC at OSH IV protonix BID Check b12, folate, and iron studies Consult GI Symptomatic Anemia resulting in shortness of breath and chest pain Resolved after pt was transfused with blood, pt not fluid overloaded on exam and did not miss dialysis sessions EKG without ischemic changes and troponin 0 + 1 hr both 28, will do additional cardiac workup if pt has another episode of chest pain Patient unsure what she wants to do with her code status. Recommend goals of care discussion again in am to talk with patient as she went from DNRCC to FULL code.Pt at time of my exam reported she wanted to be FULL code for now. Chronic Issues: ESRD on HD Consult nephrology for dialysis while inpatient Essential hypertension Hold home BP meds in setting of GI bleed Hyperlipidemia Resume home atorvastatin Diastolic heart failure, not in exacerbation Type 2 diabetes, insulin dependent LCS while inpatient, can resume home lantus at reduced dose once home meds are confirmed Hypothyroidism Resume home levothyroxine Consults: GI, nephrology DVT prophylaxis: on hold due to GI bleed Diet: NPO at midnight Fluids: PO Disposition: Admit to Inpatient Code Status: FULL See attending attestation for additional details. This note was created with the assistance of a speech-recognition program. Every effort was made to ensure accuracy; however, inadvertent computerized stud master/mistress errors may be present. Brooklyn Heath MD Internal Medicine Resident 08/07/24 Cosigned by Martin Garber MD at 08/08/2024 9:41 PM EDT Associated attestation - Martin Garber MD - 08/08/2024 9:41 PM EDT Attending Note I have seen and discussed the patient during rounds. I performed, participated and was present during the critical/flores portions of the service. I was directly involved in the management and treatment plan of the patient. I reviewed the resident's note and agree with the findings and plan. Comments: A 74 year old F with PMH of ESRD on HD TTS, HTN, HLD, DM2 and diastolic heart failure who resides at [facility] was evaluated at [facility] for chest pain. Cardiac work up was essentially unremarkable however patient was found to have Hb of 5.9 with positive fecal occult blood. [facility] [facility] for GI evaluation. Pt during the interview was lethargic however she did respond when sternal rubbed. ABG reviewed. No clear etiology for her AMS. GI and Nephrology consulted. Electronically signed by: Martin Garber MD This note is created with the assistance of a speech-recognition program. While intending to generate a document that actually reflects the content of the visit, no guarantees can be provided that every mistake has been identified and corrected by editing. documented in this encounter [facility] 04-23-2024 Plan of care note Problem: Pain Goal: Patient goal is pain score less than 4, able to rest, and participant in treatment plan as appropriate Description: INTERVENTIONS: 1. Encourage patient or legal u.s. representative to report early pain and ask for pain medicine when needed 2. Assess pain using appropriate pain scale and include the scale used when documenting 3. Administer analgesics based on type and severity of pain and evaluate response within appropriate time frame 4. Implement non-pharmacological measures as appropriate and evaluate response 5. Consider cultural and social influences on pain and pain management 6. Notify LIP if interventions ineffective or patient reports new pain 7. Monitor vital signs including pulse ox, end-tidal CO2 based on pain intervention 8. Reassess pain per policy 9. Teach patient or legal u.s. representative interventions for comforting Outcome: Progressing Note: Evaluation of progress towards goal: patient denies pain this shift; cont. To monitor comfort level Problem: Safety Goal: Patient will be injury free during hospitalization Description: INTERVENTIONS: 1. Assess patient's risk for falls and implement fall prevention plan of care per policy 2. Provide and maintain a safe environment 3. Proper use of double Identifiers 4. Medication administration using the 5 rights 5. Hand hygiene 6. Specimens are labeled at the bedside 7. Instruct patient/ patient u.s. representative about use of safety devices 8. Include patient/ patient u.s. representative in decisions related to safety Outcome: Progressing Note: Evaluation of progress towards goal: safety maintained; fall precautions in place Problem: Infection Goal: Absence of infection during hospitalization Description: INTERVENTIONS 1. Assess and monitor for signs and symptoms of infection. 2. Monitor lab/diagnostic results. 3. Monitor all insertion sites i.e., indwelling lines, tubes and drains. 4. Monitor endotracheal (as able) and nasal secretions for changes in amount and color. 5. Administer medications as ordered. 6. Instruct and encourage patient and family to use good hand hygiene technique. 7. Identify and instruct patient/patient u.s. representative in use of appropriate isolation precautions for identified infection/symptoms. 8. Provide and discuss with patient/patient u.s. representative on educational MDRO sheet. 9. Encourage and monitor nutritional status daily and consult computer network support specialist if indicated. 10. Implement neutropenic guidelines as needed. Outcome: Progressing Note: Evaluation of progress towards goal: afebrile this shift; IV site clean and intact; cont. To monitor labs while admitted Problem: Knowledge Deficit Goal: Patient/patient u.s. representative demonstrates understanding of disease process, treatment plan, medications, and discharge instructions Description: INTERVENTIONS 1. Complete learning assessment and assess knowledge base 2. Provide teaching at level of understanding 3. Provide teaching via preferred learning method(s) Outcome: Progressing Note: Evaluation of progress towards goal: patient verbalizes understanding of POC and tx this shift Problem: Moderate - High Risk Fall Score Description: Mejia Fall Score of =/> 25 or indicated by [facility] Assessment Goal: Patient should be free from fall Description: Interventions: 1. [place] to environment 2. Hourly rounds addressing the 4 P's (Pain, Positioning, Possessions, Potty) 3. Clear area of hazards (spills, clutter, electrical cords, unnecessary equipment) 4. Place equipment (bed & TV controls, call light, phone, urinal) within reach 5. Encourage patient to wear glasses and hearing aides as appropriate 6. Maintain bed in lowest position 7. Lock wheels on bed/wheelchair 8. Provide adequate lighting, including night light 9. Assess need for additional bedding, food/fluids, pain med's prior to sleep/routinely 10. Provide gripper slippers or personal non-skid footwear 11. Teach patient and patient u.s. representative to maintain environment for safety and engage in all aspects of fall prevention program 12. Remind patient to call for help before getting out of bed 13. Initiate bed/chair/exit alarms supportive devices as appropriate, (chair wedge, no-skid floor mat, raised edge mattress, hip protectors) 14. Locate patient bed assignment for optimal visualization 15. Evaluate and identify Safe Patient Handling Equipment needs 16. Provide supervision when out of bed or chair 17. Utilize gait belt as needed to assist with ambulation 18. Place adaptive equipment (cane, walker) within reach 19. Request patient u.s. representative bring adaptive equipment/mobility aids from home or obtain and provide as needed 20. Consult pharmacy regarding effects of med's affecting mobility, cognition, and alternatives 21. Obtain physician order for PT if risk factors associated with mobility are present 22. Obtain physician order for OT as appropriate 23. Utilize diversional activities 24. Educate patient and patient u.s. representative how to maintain a safe environment during visitation times (notify nurse prior to leaving bedside) 25. Consider appropriateness of medical or non-medical pathologist 26. Set up voiding schedule as appropriate (every 2 hours) Outcome: Progressing Note: Evaluation of progress towards goal: fall precautions in place; safety maintained [facility] 04-23-2024 Miscellaneous Notes Problem: Pain Goal: Patient goal is pain score less than 4, able to rest, and participant in treatment plan as appropriate Description: INTERVENTIONS: 1. Encourage patient or legal u.s. representative to report early pain and ask for pain medicine when needed 2. Assess pain using appropriate pain scale and include the scale used when documenting 3. Administer analgesics based on type and severity of pain and evaluate response within appropriate time frame 4. Implement non-pharmacological measures as appropriate and evaluate response 5. Consider cultural and social influences on pain and pain management 6. Notify LIP if interventions ineffective or patient reports new pain 7. Monitor vital signs including pulse ox, end-tidal CO2 based on pain intervention 8. Reassess pain per policy 9. Teach patient or legal u.s. representative interventions for comforting Outcome: Progressing Note: Evaluation of progress towards goal: patient denies pain this shift; cont. To monitor comfort level Problem: Safety Goal: Patient will be injury free during hospitalization Description: INTERVENTIONS: 1. Assess patient's risk for falls and implement fall prevention plan of care per policy 2. Provide and maintain a safe environment 3. Proper use of double Identifiers 4. Medication administration using the 5 rights 5. Hand hygiene 6. Specimens are labeled at the bedside 7. Instruct patient/ patient u.s. representative about use of safety devices 8. Include patient/ patient u.s. representative in decisions related to safety Outcome: Progressing Note: Evaluation of progress towards goal: safety maintained; fall precautions in place Problem: Infection Goal: Absence of infection during hospitalization Description: INTERVENTIONS 1. Assess and monitor for signs and symptoms of infection. 2. Monitor lab/diagnostic results. 3. Monitor all insertion sites i.e., indwelling lines, tubes and drains. 4. Monitor endotracheal (as able) and nasal secretions for changes in amount and color. 5. Administer medications as ordered. 6. Instruct and encourage patient and family to use good hand hygiene technique. 7. Identify and instruct patient/patient u.s. representative in use of appropriate isolation precautions for identified infection/symptoms. 8. Provide and discuss with patient/patient u.s. representative on educational MDRO sheet. 9. Encourage and monitor nutritional status daily and consult computer network support specialist if indicated. 10. Implement neutropenic guidelines as needed. Outcome: Progressing Note: Evaluation of progress towards goal: afebrile this shift; IV site clean and intact; cont. To monitor labs while admitted Problem: Knowledge Deficit Goal: Patient/patient u.s. representative demonstrates understanding of disease process, treatment plan, medications, and discharge instructions Description: INTERVENTIONS 1. Complete learning assessment and assess knowledge base 2. Provide teaching at level of understanding 3. Provide teaching via preferred learning method(s) Outcome: Progressing Note: Evaluation of progress towards goal: patient verbalizes understanding of POC and tx this shift Problem: Moderate - High Risk Fall Score Description: Mejia Fall Score of =/> 25 or indicated by [facility] Assessment Goal: Patient should be free from fall Description: Interventions: 1. [place] to environment 2. Hourly rounds addressing the 4 P's (Pain, Positioning, Possessions, Potty) 3. Clear area of hazards (spills, clutter, electrical cords, unnecessary equipment) 4. Place equipment (bed & TV controls, call light, phone, urinal) within reach 5. Encourage patient to wear glasses and hearing aides as appropriate 6. Maintain bed in lowest position 7. Lock wheels on bed/wheelchair 8. Provide adequate lighting, including night light 9. Assess need for additional bedding, food/fluids, pain med's prior to sleep/routinely 10. Provide gripper slippers or personal non-skid footwear 11. Teach patient and patient u.s. representative to maintain environment for safety and engage in all aspects of fall prevention program 12. Remind patient to call for help before getting out of bed 13. Initiate bed/chair/exit alarms supportive devices as appropriate, (chair wedge, no-skid floor mat, raised edge mattress, hip protectors) 14. Locate patient bed assignment for optimal visualization 15. Evaluate and identify Safe Patient Handling Equipment needs 16. Provide supervision when out of bed or chair 17. Utilize gait belt as needed to assist with ambulation 18. Place adaptive equipment (cane, walker) within reach 19. Request patient u.s. representative bring adaptive equipment/mobility aids from home or obtain and provide as needed 20. Consult pharmacy regarding effects of med's affecting mobility, cognition, and alternatives 21. Obtain physician order for PT if risk factors associated with mobility are present 22. Obtain physician order for OT as appropriate 23. Utilize diversional activities 24. Educate patient and patient u.s. representative how to maintain a safe environment during visitation times (notify nurse prior to leaving bedside) 25. Consider appropriateness of medical or non-medical pathologist 26. Set up voiding schedule as appropriate (every 2 hours) Outcome: Progressing Note: Evaluation of progress towards goal: fall precautions in place; safety maintained DISCHARGE PLANNING NOTE CRF/Med Rec sent to. [facility] (P# [phone] ; F# [phone]) DISCHARGE PLANNING NOTE Pt was discussed in Daily Transition Rounds. Chart reviewed. SW informed of discharge this day. Transport set for 1745 via [facility]. [facility] tasked with sending CRF to [facility]. SW sent CRF to [facility]. SW signing off. DISCHARGE PLANNING NOTE SW is following for pt's return to [facility]. Facility did request VBG prior to discharge. Team Informed. Facility will accept pt upon discharge. SW/CN following. Occupational Therapy OT Type of Visit: Medical deferral Reason For Medical Deferral: (OT attempt to see patient 2x today, initially patient having bed side testing complete. Second attempt, patient falling asleep and not actively participating in answering questions. Patient appears to be at her baseline for ECF) OT will hold at this time, and attempt when patient more awake and alert. Problem: Pain Goal: Patient goal is pain score less than 4, able to rest, and participant in treatment plan as appropriate Description: INTERVENTIONS: 1. Encourage patient or legal u.s. representative to report early pain and ask for pain medicine when needed 2. Assess pain using appropriate pain scale and include the scale used when documenting 3. Administer analgesics based on type and severity of pain and evaluate response within appropriate time frame 4. Implement non-pharmacological measures as appropriate and evaluate response 5. Consider cultural and social influences on pain and pain management 6. Notify LIP if interventions ineffective or patient reports new pain 7. Monitor vital signs including pulse ox, end-tidal CO2 based on pain intervention 8. Reassess pain per policy 9. Teach patient or legal u.s. representative interventions for comforting Outcome: Progressing Note: Evaluation of progress towards goal: denies any pain at this time Problem: Safety Goal: Patient will be injury free during hospitalization Description: INTERVENTIONS: 1. Assess patient's risk for falls and implement fall prevention plan of care per policy 2. Provide and maintain a safe environment 3. Proper use of double Identifiers 4. Medication administration using the 5 rights 5. Hand hygiene 6. Specimens are labeled at the bedside 7. Instruct patient/ patient u.s. representative about use of safety devices 8. Include patient/ patient u.s. representative in decisions related to safety Outcome: Progressing Note: Evaluation of progress towards goal: safety maintained; no injuries reported Problem: Infection Goal: Absence of infection during hospitalization Description: INTERVENTIONS 1. Assess and monitor for signs and symptoms of infection. 2. Monitor lab/diagnostic results. 3. Monitor all insertion sites i.e., indwelling lines, tubes and drains. 4. Monitor endotracheal (as able) and nasal secretions for changes in amount and color. 5. Administer medications as ordered. 6. Instruct and encourage patient and family to use good hand hygiene technique. 7. Identify and instruct patient/patient u.s. representative in use of appropriate isolation precautions for identified infection/symptoms. 8. Provide and discuss with patient/patient u.s. representative on educational MDRO sheet. 9. Encourage and monitor nutritional status daily and consult computer network support specialist if indicated. 10. Implement neutropenic guidelines as needed. Outcome: Progressing Note: Evaluation of progress towards goal: good hand hygiene utilized Problem: Knowledge Deficit Goal: Patient/patient u.s. representative demonstrates understanding of disease process, treatment plan, medications, and discharge instructions Description: INTERVENTIONS 1. Complete learning assessment and assess knowledge base 2. Provide teaching at level of understanding 3. Provide teaching via preferred learning method(s) Outcome: Progressing Note: Evaluation of progress towards goal: all questions answered throughout shift Problem: Urinary Incontinence Goal: Perineal skin integrity is maintained or improved Description: INTERVENTIONS 1. Assess genitourinary system, perineal skin, labs (urinalysis), and history of incontinence to include past management, aggravating, and alleviating factors 2. Keep skin clean and dry 3. Apply skin protectant 4. Develop skin care regimen 5. Provide privacy when changing patients incontinence device to maintain their dignity 6. Consider placing an indwelling catheter 7. Collaborate with interdisciplinary team and initiate plans and interventions as needed Outcome: Progressing Note: Evaluation of progress towards goal: primafit in place; skin clean and dry Problem: Moderate - High Risk Fall Score Description: Mejia Fall Score of =/> 25 or indicated by [facility] Assessment Goal: Patient should be free from fall Description: Interventions: 1. [place] to environment 2. Hourly rounds addressing the 4 P's (Pain, Positioning, Possessions, Potty) 3. Clear area of hazards (spills, clutter, electrical cords, unnecessary equipment) 4. Place equipment (bed & TV controls, call light, phone, urinal) within reach 5. Encourage patient to wear glasses and hearing aides as appropriate 6. Maintain bed in lowest position 7. Lock wheels on bed/wheelchair 8. Provide adequate lighting, including night light 9. Assess need for additional bedding, food/fluids, pain med's prior to sleep/routinely 10. Provide gripper slippers or personal non-skid footwear 11. Teach patient and patient u.s. representative to maintain environment for safety and engage in all aspects of fall prevention program 12. Remind patient to call for help before getting out of bed 13. Initiate bed/chair/exit alarms supportive devices as appropriate, (chair wedge, no-skid floor mat, raised edge mattress, hip protectors) 14. Locate patient bed assignment for optimal visualization 15. Evaluate and identify Safe Patient Handling Equipment needs 16. Provide supervision when out of bed or chair 17. Utilize gait belt as needed to assist with ambulation 18. Place adaptive equipment (cane, walker) within reach 19. Request patient u.s. representative bring adaptive equipment/mobility aids from home or obtain and provide as needed 20. Consult pharmacy regarding effects of med's affecting mobility, cognition, and alternatives 21. Obtain physician order for PT if risk factors associated with mobility are present 22. Obtain physician order for OT as appropriate 23. Utilize diversional activities 24. Educate patient and patient u.s. representative how to maintain a safe environment during visitation times (notify nurse prior to leaving bedside) 25. Consider appropriateness of medical or non-medical pathologist 26. Set up voiding schedule as appropriate (every 2 hours) Outcome: Progressing Note: Evaluation of progress towards goal: side rails up x2; bed locked; call light within reach Problem: Pain Goal: Patient goal is pain score less than 4, able to rest, and participant in treatment plan as appropriate Description: INTERVENTIONS: 1. Encourage patient or legal u.s. representative to report early pain and ask for pain medicine when needed 2. Assess pain using appropriate pain scale and include the scale used when documenting 3. Administer analgesics based on type and severity of pain and evaluate response within appropriate time frame 4. Implement non-pharmacological measures as appropriate and evaluate response 5. Consider cultural and social influences on pain and pain management 6. Notify LIP if interventions ineffective or patient reports new pain 7. Monitor vital signs including pulse ox, end-tidal CO2 based on pain intervention 8. Reassess pain per policy 9. Teach patient or legal u.s. representative interventions for comforting Outcome: Progressing Note: Evaluation of progress towards goal: Pt able to report pain according to 0/10 pain scale. Medicating patient for pain per orders. Continue to monitor. Problem: Safety Goal: Patient will be injury free during hospitalization Description: INTERVENTIONS: 1. Assess patient's risk for falls and implement fall prevention plan of care per policy 2. Provide and maintain a safe environment 3. Proper use of double Identifiers 4. Medication administration using the 5 rights 5. Hand hygiene 6. Specimens are labeled at the bedside 7. Instruct patient/ patient u.s. representative about use of safety devices 8. Include patient/ patient u.s. representative in decisions related to safety Outcome: Progressing Note: Evaluation of progress towards goal: Safety measures initiated/maintained. Pt remains safe from harm/injury/falls. Continue to monitor. Problem: Infection Goal: Absence of infection during hospitalization Description: INTERVENTIONS 1. Assess and monitor for signs and symptoms of infection. 2. Monitor lab/diagnostic results. 3. Monitor all insertion sites i.e., indwelling lines, tubes and drains. 4. Monitor endotracheal (as able) and nasal secretions for changes in amount and color. 5. Administer medications as ordered. 6. Instruct and encourage patient and family to use good hand hygiene technique. 7. Identify and instruct patient/patient u.s. representative in use of appropriate isolation precautions for identified infection/symptoms. 8. Provide and discuss with patient/patient u.s. representative on educational MDRO sheet. 9. Encourage and monitor nutritional status daily and consult computer network support specialist if indicated. 10. Implement neutropenic guidelines as needed. Outcome: Progressing Note: Evaluation of progress towards goal: Patient VS WNL, remains afebrile for shift. Continue to monitor. Problem: Knowledge Deficit Goal: Patient/patient u.s. representative demonstrates understanding of disease process, treatment plan, medications, and discharge instructions Description: INTERVENTIONS 1. Complete learning assessment and assess knowledge base 2. Provide teaching at level of understanding 3. Provide teaching via preferred learning method(s) Outcome: Progressing Note: Evaluation of progress towards goal: POC discussed with patient. Questions answered PRN. Problem: Discharge Planning Goal: Discharge to post-acute care, other facility, or home with appropriate resources Description: Patient's goal is: INTERVENTIONS 1. Conduct assessment to determine patient/family and health care team treatment goals, and need for post-acute services based on payer coverage, community resources, and patient preferences, and barriers to discharge 2. Coordinate with Social work, Care Navigation, and Utilization Review to arrange appropriate level of services according to patient's needs based on patient preference and payer coverage in collaboration with the physician and health care team 3. Address psychosocial, clinical, and financial barriers to discharge as identified in assessment in conjunction with the patient/family and health care team 4. Consult appropriate ancillary services (i.e.. PT/OT/ST, etc) as needed 5. Communicate with and update the patient/family, physician, and health care team regarding progress on the discharge plan 6. Identify discharge learning needs (meds, wound care, etc). 7. Arrange for needed discharge transportation as appropriate Outcome: Progressing Note: Evaluation of progress towards goal: Continue to assess for when appropriate. Problem: Glucose Imbalance Goal: Clinical indication of glucose balance is achieved Description: Patient's goal is: INTERVENTIONS 1. Monitor blood glucose levels as ordered 2. Administer medications as ordered 3. Notify physician of ineffective treatment plan Outcome: Progressing Note: Evaluation of progress towards goal: Continue to assess for when appropriate. Goal: Patient's discharge needs are met Description: Patient's goal is: INTERVENTIONS 1. Assess patient for self-management skills 2. Encourage participation in diabetes management 3. Identify potential discharge barriers on admission and throughout hospital stay 4. Involve patient/S.O. in discharge planning process 5. Communicate referral to family life educator as appropriate 6. Communicate referral to computer network support specialist as appropriate 7. Collaborate with case management/social secretary for discharge needs Outcome: Progressing Note: Evaluation of progress towards goal: Continue to assess for when appropriate. Problem: Potential for Compromised Skin Integrity Goal: Skin integrity is maintained or improved Description: Patient's goal is: INTERVENTIONS 1. Perform initial skin assessment on admission and as needed 2. Turn patient every 2 hours and PRN 3. Relieve pressure to bony prominences 4. Avoid shearing 5. Keep skin clean and dry 6. Alternate a full bath with partial baths for elderly 7. Apply lotion/moisturizer on skin 8. Monitor patient's hygiene practices 9. Float heels 10. Collaborate with interdisciplinary team and initiate plans and interventions as needed Outcome: Progressing Note: Evaluation of progress towards goal: Continue to assess for when appropriate. Goal: Patient's nutritional intake is adequate Description: Patient's goal is: INTERVENTIONS 1. Assess and monitor food intake and supplements, patient food preferences, nausea, vomiting, labs, oral cavity (gums, teeth, tongue, mucosa), proper denture fit, and cultural beliefs 2. Monitor for signs of hypoglycemia and hyperglycemia 3. Collaborate with interdisciplinary team and initiate plan and interventions as ordered 4. Monitor patient's weight 5. Assist patient with meals/food selection 6. Assist patient with eating 7. Allow adequate time for meals 8. Provide pleasant environment during mealtime 9. Increase social contact during mealtimes 10. Plan activities to conserve energy 11. Encourage/perform oral hygiene as appropriate 12. Encourage patient to take dietary supplement as ordered 13. Collaborate with clinical computer network support specialist 14. Include patient/ patient's u.s. representative in decisions related to nutrition Outcome: Progressing Note: Evaluation of progress towards goal: Continue to assess for when appropriate. Problem: Urinary Incontinence Goal: Perineal skin integrity is maintained or improved Description: INTERVENTIONS 1. Assess genitourinary system, perineal skin, labs (urinalysis), and history of incontinence to include past management, aggravating, and alleviating factors 2. Keep skin clean and dry 3. Apply skin protectant 4. Develop skin care regimen 5. Provide privacy when changing patients incontinence device to maintain their dignity 6. Consider placing an indwelling catheter 7. Collaborate with interdisciplinary team and initiate plans and interventions as needed Outcome: Progressing Note: Evaluation of progress towards goal: Continue to assess for when appropriate. Problem: Moderate - High Risk Fall Score Description: Mejia Fall Score of =/> 25 or indicated by [facility] Assessment Goal: Patient should be free from fall Description: Interventions: 1. [place] to environment 2. Hourly rounds addressing the 4 P's (Pain, Positioning, Possessions, Potty) 3. Clear area of hazards (spills, clutter, electrical cords, unnecessary equipment) 4. Place equipment (bed & TV controls, call light, phone, urinal) within reach 5. Encourage patient to wear glasses and hearing aides as appropriate 6. Maintain bed in lowest position 7. Lock wheels on bed/wheelchair 8. Provide adequate lighting, including night light 9. Assess need for additional bedding, food/fluids, pain med's prior to sleep/routinely 10. Provide gripper slippers or personal non-skid footwear 11. Teach patient and patient u.s. representative to maintain environment for safety and engage in all aspects of fall prevention program 12. Remind patient to call for help before getting out of bed 13. Initiate bed/chair/exit alarms supportive devices as appropriate, (chair wedge, no-skid floor mat, raised edge mattress, hip protectors) 14. Locate patient bed assignment for optimal visualization 15. Evaluate and identify Safe Patient Handling Equipment needs 16. Provide supervision when out of bed or chair 17. Utilize gait belt as needed to assist with ambulation 18. Place adaptive equipment (cane, walker) within reach 19. Request patient u.s. representative bring adaptive equipment/mobility aids from home or obtain and provide as needed 20. Consult pharmacy regarding effects of med's affecting mobility, cognition, and alternatives 21. Obtain physician order for PT if risk factors associated with mobility are present 22. Obtain physician order for OT as appropriate 23. Utilize diversional activities 24. Educate patient and patient u.s. representative how to maintain a safe environment during visitation times (notify nurse prior to leaving bedside) 25. Consider appropriateness of medical or non-medical pathologist 26. Set up voiding schedule as appropriate (every 2 hours) Outcome: Progressing Note: Evaluation of progress towards goal: Pt remains free from falls and injury Problem: Multi-Drug Resistant Organism / Rule-Out Infection Prevention Goal: Prevent transmission of infection Description: INTERVENTIONS 1. Place patient in private room or in room with patient with same disease 2. Discard single-use items 3. Clean reusable equipment between patients 4. Wear gloves for direct and indirect contact with patient or contaminants 5. Change gloves between tasks and procedures 6. Wash hands before and after caring for each patient 7. Wear appropriate personal protective equipment in relation to the indicated isolation type 8. Place appropriate isolation signage on patient's door 9. Provide patient/ patient u.s. representative with isolation education. Outcome: Progressing Note: Evaluation of progress towards goal: Continue to assess for when appropriate. 1. No flow related signal of the visualized left vertebral artery, suggestive of chronic occlusion. 2. Decreased flow related signal of posterior cerebral arteries and right middle cerebral artery proximally with more robust signal distally, possibly u.s. representative of a combination of artifact and intracranial atherosclerosis, though without definite evidence of high-grade stenosis. Continued attention on follow-up contrast enhanced imaging, as clinically warranted. 3. Otherwise no large vessel occlusion, high-grade stenosis, or aneurysm of the remainder of the [place] circulation. Finalized by Denton Redd MD on 04/21/2024 4:36 PM Exam Ended: 04/21/24 15:51 EST Last Resulted: 04/21/24 16:36 EST [The MR examination is markedly limited by motion artifact. The carotid and right vertebral arteries have flow signal and are likely patent. Stenosis cannot be excluded]. However, there is no obvious signal on this very limited examination in the left vertebral artery, suggestive of either hypoplasia or occlusion.. Finalized by Garett Love MD on 04/21/2024 4:50 PM Exam Ended: 04/21/24 16:03 EST Last Resulted: 04/21/24 16:50 EST 1. Abnormal left vertebral artery [slow flow versus occlusion], recommend correlation with vascular imaging. 2. No acute ischemia 3. Moderate global parenchymal volume loss. Mild/moderate burden white matter FLAIR hyperintensities, most often seen in the setting of chronic microvascular ischemia. 4. Symmetric left mastoid fluid, correlate for clinical signs of mastoiditis. THIS REPORT CONTAINS A SIGNIFICANT RESULT AND/OR RECOMMENDATION, WHICH REQUIRES THE ATTENTION OF THE LICENSED CAREGIVER RESPONSIBLE FOR THIS PATIENT. THEREFORE, I SPECIFICALLY DESIGNATED THIS REPORT TO BE TELEPHONED BY THE RADIOLOGY DEPARTMENT. FINDINGS WERE INSTRUCTED TO BE CALLED TO THE CLINICAL SERVICE ON 04/21/2024 1:31 PM Finalized by Jose Alfredo Ordonez MD on 04/21/2024 1:31 PM Clinical note: Following yesterday's MRI observations of possible poor flow vertebrobasilar system, MRA brain and cervical carotid circulation Were ordered. 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 MRA of the neck and brain both support collateral circulation. No intervention is recommended at this time. Patient has elevated stroke risk. She is bedridden in the care home per her own description to me. If heparin subcutaneously can continue, this would be reasonable choice otherwise placing her on aspirin 81 mg a day could be considered. Following as needed. Patient has elevated stroke risk. Problem: Pain Goal: Patient goal is pain score less than 4, able to rest, and participant in treatment plan as appropriate Description: INTERVENTIONS: 1. Encourage patient or legal u.s. representative to report early pain and ask for pain medicine when needed 2. Assess pain using appropriate pain scale and include the scale used when documenting 3. Administer analgesics based on type and severity of pain and evaluate response within appropriate time frame 4. Implement non-pharmacological measures as appropriate and evaluate response 5. Consider cultural and social influences on pain and pain management 6. Notify LIP if interventions ineffective or patient reports new pain 7. Monitor vital signs including pulse ox, end-tidal CO2 based on pain intervention 8. Reassess pain per policy 9. Teach patient or legal u.s. representative interventions for comforting Outcome: Progressing Note: Evaluation of progress towards goal: pt able to report pain on a scale of 0-10, medication given per MAR Problem: Safety Goal: Patient will be injury free during hospitalization Description: INTERVENTIONS: 1. Assess patient's risk for falls and implement fall prevention plan of care per policy 2. Provide and maintain a safe environment 3. Proper use of double Identifiers 4. Medication administration using the 5 rights 5. Hand hygiene 6. Specimens are labeled at the bedside 7. Instruct patient/ patient u.s. representative about use of safety devices 8. Include patient/ patient u.s. representative in decisions related to safety Outcome: Progressing Note: Evaluation of progress towards goal: Pt remains free from falls and safety maintained. Nonskid footwear applied. Call light, bedside table, and personal belongings within reach. Pt educated on fall risk/ prevention. Encouraged pt to call out for assistance as needed. Will continue to monitor. Problem: Glucose Imbalance Goal: Clinical indication of glucose balance is achieved Description: Patient's goal is: INTERVENTIONS 1. Monitor blood glucose levels as ordered 2. Administer medications as ordered 3. Notify physician of ineffective treatment plan Outcome: Progressing Note: Evaluation of progress towards goal: monitoring blood sugar achs, sliding scale insulin ordered for coverage Problem: Moderate - High Risk Fall Score Description: Mejia Fall Score of =/> 25 or indicated by [facility] Assessment Goal: Patient should be free from fall Description: Interventions: 1. [place] to environment 2. Hourly rounds addressing the 4 P's (Pain, Positioning, Possessions, Potty) 3. Clear area of hazards (spills, clutter, electrical cords, unnecessary equipment) 4. Place equipment (bed & TV controls, call light, phone, urinal) within reach 5. Encourage patient to wear glasses and hearing aides as appropriate 6. Maintain bed in lowest position 7. Lock wheels on bed/wheelchair 8. Provide adequate lighting, including night light 9. Assess need for additional bedding, food/fluids, pain med's prior to sleep/routinely 10. Provide gripper slippers or personal non-skid footwear 11. Teach patient and patient u.s. representative to maintain environment for safety and engage in all aspects of fall prevention program 12. Remind patient to call for help before getting out of bed 13. Initiate bed/chair/exit alarms supportive devices as appropriate, (chair wedge, no-skid floor mat, raised edge mattress, hip protectors) 14. Locate patient bed assignment for optimal visualization 15. Evaluate and identify Safe Patient Handling Equipment needs 16. Provide supervision when out of bed or chair 17. Utilize gait belt as needed to assist with ambulation 18. Place adaptive equipment (cane, walker) within reach 19. Request patient u.s. representative bring adaptive equipment/mobility aids from home or obtain and provide as needed 20. Consult pharmacy regarding effects of med's affecting mobility, cognition, and alternatives 21. Obtain physician order for PT if risk factors associated with mobility are present 22. Obtain physician order for OT as appropriate 23. Utilize diversional activities 24. Educate patient and patient u.s. representative how to maintain a safe environment during visitation times (notify nurse prior to leaving bedside) 25. Consider appropriateness of medical or non-medical pathologist 26. Set up voiding schedule as appropriate (every 2 hours) Outcome: Progressing Note: Evaluation of progress towards goal: Pt remains free from falls and safety maintained. Will continue to monitor. DISCHARGE PLANNING NOTE [facility] (P# ; F# ) Referral sent to. [facility] (P# [phone] ; F# [phone]) 04/21/24 1357 Services Requested Patient expects to be discharged to: ECF Discharge Disposition SNF SNF Name [facility] Does the patient need discharge transportation arranged? Yes Transportation Arranged Ambulance Patient choice offered Yes List Provided Patient declined Patient Declined Active with Provider Initial DC Assessment Completed Yes DC Planning Complete Discharge Milestones Yes DISCHARGE PLANNING NOTE Pt was discussed in Transition Rounds. Chart reviewed. Pt was admitted under Observation status for Syncope. Therapy was ordered and ECF was recommended. SW spoke to pt who said she will return to [facility]. Pt uses a wheelchair at the facility. DAVIN spoke to Alejandra from the facility. Pt can return at discharge. Pt has Dialysis at [facility]. SW will continue to follow patient. Problem: Pain Goal: Patient goal is pain score less than 4, able to rest, and participant in treatment plan as appropriate Description: INTERVENTIONS: 1. Encourage patient or legal u.s. representative to report early pain and ask for pain medicine when needed 2. Assess pain using appropriate pain scale and include the scale used when documenting 3. Administer analgesics based on type and severity of pain and evaluate response within appropriate time frame 4. Implement non-pharmacological measures as appropriate and evaluate response 5. Consider cultural and social influences on pain and pain management 6. Notify LIP if interventions ineffective or patient reports new pain 7. Monitor vital signs including pulse ox, end-tidal CO2 based on pain intervention 8. Reassess pain per policy 9. Teach patient or legal u.s. representative interventions for comforting Outcome: Progressing Note: Evaluation of progress towards goal: Pt able to report pain according to 0/10 pain scale. Medicating patient for pain per orders. Continue to monitor. Problem: Safety Goal: Patient will be injury free during hospitalization Description: INTERVENTIONS: 1. Assess patient's risk for falls and implement fall prevention plan of care per policy 2. Provide and maintain a safe environment 3. Proper use of double Identifiers 4. Medication administration using the 5 rights 5. Hand hygiene 6. Specimens are labeled at the bedside 7. Instruct patient/ patient u.s. representative about use of safety devices 8. Include patient/ patient u.s. representative in decisions related to safety Outcome: Progressing Note: Evaluation of progress towards goal: Safety measures initiated/maintained. Pt remains safe from harm/injury/falls. Continue to monitor. Problem: Infection Goal: Absence of infection during hospitalization Description: INTERVENTIONS 1. Assess and monitor for signs and symptoms of infection. 2. Monitor lab/diagnostic results. 3. Monitor all insertion sites i.e., indwelling lines, tubes and drains. 4. Monitor endotracheal (as able) and nasal secretions for changes in amount and color. 5. Administer medications as ordered. 6. Instruct and encourage patient and family to use good hand hygiene technique. 7. Identify and instruct patient/patient u.s. representative in use of appropriate isolation precautions for identified infection/symptoms. 8. Provide and discuss with patient/patient u.s. representative on educational MDRO sheet. 9. Encourage and monitor nutritional status daily and consult computer network support specialist if indicated. 10. Implement neutropenic guidelines as needed. Outcome: Progressing Note: Evaluation of progress towards goal: Patient VS WNL, remains afebrile for shift. Continue to monitor. Problem: Knowledge Deficit Goal: Patient/patient u.s. representative demonstrates understanding of disease process, treatment plan, medications, and discharge instructions Description: INTERVENTIONS 1. Complete learning assessment and assess knowledge base 2. Provide teaching at level of understanding 3. Provide teaching via preferred learning method(s) Outcome: Progressing Note: Evaluation of progress towards goal: POC discussed with patient. Questions answered PRN. Problem: Discharge Planning Goal: Discharge to post-acute care, other facility, or home with appropriate resources Description: Patient's goal is: INTERVENTIONS 1. Conduct assessment to determine patient/family and health care team treatment goals, and need for post-acute services based on payer coverage, community resources, and patient preferences, and barriers to discharge 2. Coordinate with Social work, Care Navigation, and Utilization Review to arrange appropriate level of services according to patient's needs based on patient preference and payer coverage in collaboration with the physician and health care team 3. Address psychosocial, clinical, and financial barriers to discharge as identified in assessment in conjunction with the patient/family and health care team 4. Consult appropriate ancillary services (i.e.. PT/OT/ST, etc) as needed 5. Communicate with and update the patient/family, physician, and health care team regarding progress on the discharge plan 6. Identify discharge learning needs (meds, wound care, etc). 7. Arrange for needed discharge transportation as appropriate Outcome: Progressing Note: Evaluation of progress towards goal: Continue to assess for when appropriate. Problem: Glucose Imbalance Goal: Clinical indication of glucose balance is achieved Description: Patient's goal is: INTERVENTIONS 1. Monitor blood glucose levels as ordered 2. Administer medications as ordered 3. Notify physician of ineffective treatment plan Outcome: Progressing Note: Evaluation of progress towards goal: Continue to assess for when appropriate. Goal: Patient's discharge needs are met Description: Patient's goal is: INTERVENTIONS 1. Assess patient for self-management skills 2. Encourage participation in diabetes management 3. Identify potential discharge barriers on admission and throughout hospital stay 4. Involve patient/S.O. in discharge planning process 5. Communicate referral to family life educator as appropriate 6. Communicate referral to computer network support specialist as appropriate 7. Collaborate with case management/social secretary for discharge needs Outcome: Progressing Note: Evaluation of progress towards goal: Continue to assess for when appropriate. Problem: Potential for Compromised Skin Integrity Goal: Skin integrity is maintained or improved Description: Patient's goal is: INTERVENTIONS 1. Perform initial skin assessment on admission and as needed 2. Turn patient every 2 hours and PRN 3. Relieve pressure to bony prominences 4. Avoid shearing 5. Keep skin clean and dry 6. Alternate a full bath with partial baths for elderly 7. Apply lotion/moisturizer on skin 8. Monitor patient's hygiene practices 9. Float heels 10. Collaborate with interdisciplinary team and initiate plans and interventions as needed Outcome: Progressing Note: Evaluation of progress towards goal: Continue to assess for when appropriate. Goal: Patient's nutritional intake is adequate Description: Patient's goal is: INTERVENTIONS 1. Assess and monitor food intake and supplements, patient food preferences, nausea, vomiting, labs, oral cavity (gums, teeth, tongue, mucosa), proper denture fit, and cultural beliefs 2. Monitor for signs of hypoglycemia and hyperglycemia 3. Collaborate with interdisciplinary team and initiate plan and interventions as ordered 4. Monitor patient's weight 5. Assist patient with meals/food selection 6. Assist patient with eating 7. Allow adequate time for meals 8. Provide pleasant environment during mealtime 9. Increase social contact during mealtimes 10. Plan activities to conserve energy 11. Encourage/perform oral hygiene as appropriate 12. Encourage patient to take dietary supplement as ordered 13. Collaborate with clinical computer network support specialist 14. Include patient/ patient's u.s. representative in decisions related to nutrition Outcome: Progressing Note: Evaluation of progress towards goal: Continue to assess for when appropriate. Problem: Urinary Incontinence Goal: Perineal skin integrity is maintained or improved Description: INTERVENTIONS 1. Assess genitourinary system, perineal skin, labs (urinalysis), and history of incontinence to include past management, aggravating, and alleviating factors 2. Keep skin clean and dry 3. Apply skin protectant 4. Develop skin care regimen 5. Provide privacy when changing patients incontinence device to maintain their dignity 6. Consider placing an indwelling catheter 7. Collaborate with interdisciplinary team and initiate plans and interventions as needed Outcome: Progressing Note: Evaluation of progress towards goal: Continue to assess for when appropriate. Problem: Moderate - High Risk Fall Score Description: Mejia Fall Score of =/> 25 or indicated by [facility] Assessment Goal: Patient should be free from fall Description: Interventions: 1. [place] to environment 2. Hourly rounds addressing the 4 P's (Pain, Positioning, Possessions, Potty) 3. Clear area of hazards (spills, clutter, electrical cords, unnecessary equipment) 4. Place equipment (bed & TV controls, call light, phone, urinal) within reach 5. Encourage patient to wear glasses and hearing aides as appropriate 6. Maintain bed in lowest position 7. Lock wheels on bed/wheelchair 8. Provide adequate lighting, including night light 9. Assess need for additional bedding, food/fluids, pain med's prior to sleep/routinely 10. Provide gripper slippers or personal non-skid footwear 11. Teach patient and patient u.s. representative to maintain environment for safety and engage in all aspects of fall prevention program 12. Remind patient to call for help before getting out of bed 13. Initiate bed/chair/exit alarms supportive devices as appropriate, (chair wedge, no-skid floor mat, raised edge mattress, hip protectors) 14. Locate patient bed assignment for optimal visualization 15. Evaluate and identify Safe Patient Handling Equipment needs 16. Provide supervision when out of bed or chair 17. Utilize gait belt as needed to assist with ambulation 18. Place adaptive equipment (cane, walker) within reach 19. Request patient u.s. representative bring adaptive equipment/mobility aids from home or obtain and provide as needed 20. Consult pharmacy regarding effects of med's affecting mobility, cognition, and alternatives 21. Obtain physician order for PT if risk factors associated with mobility are present 22. Obtain physician order for OT as appropriate 23. Utilize diversional activities 24. Educate patient and patient u.s. representative how to maintain a safe environment during visitation times (notify nurse prior to leaving bedside) 25. Consider appropriateness of medical or non-medical pathologist 26. Set up voiding schedule as appropriate (every 2 hours) Outcome: Progressing Note: Evaluation of progress towards goal: Pt remains free from falls and injury Problem: Multi-Drug Resistant Organism / Rule-Out Infection Prevention Goal: Prevent transmission of infection Description: INTERVENTIONS 1. Place patient in private room or in room with patient with same disease 2. Discard single-use items 3. Clean reusable equipment between patients 4. Wear gloves for direct and indirect contact with patient or contaminants 5. Change gloves between tasks and procedures 6. Wash hands before and after caring for each patient 7. Wear appropriate personal protective equipment in relation to the indicated isolation type 8. Place appropriate isolation signage on patient's door 9. Provide patient/ patient u.s. representative with isolation education. Outcome: Progressing Note: Evaluation of progress towards goal: Continue to assess for when appropriate. Physical Therapy Evaluation Discharge Recommendations PT Recommendations: Extended Care Facility Therapy Plan Need for skilled Physical Therapy to address deficits in functional mobility due to a status decline resulting from current medical status PT Treatment/Interventions: LE strengthening/ROM, Bed mobility PT Frequency: 2-3days/week PT Duration: 10 days Patient Response to Treatment: Tolerated evaluation without adverse reaction Assessment Patient Assessment Patient Response to Treatment: Tolerated evaluation without adverse reaction Mood/Affect: Appropriate for circumstances Rehab Prognosis: Fair 6 Clicks: Basic Mobility Turning from your back to your side while in a flat bed without using bed rails?: Total Moving from lying on your back to sitting on side of flat bed without using bed rails?: Total Moving to and from bed to a chair (including w/c)?: Total Standing up from a chair using your arms (e.g. w/c or bedside chair)?: Total To walk in hospital room?: Total Climbing 3-5 steps with a railing?: Total Scoring 6 Clicks: Basic Mobility Raw Score: 6 [facility] G Code Modifier: CN Past Medical History: Diagnosis Date Anemia, unspecified Cellulitis Cellulitis, unspecified CHF (congestive heart failure) ([facility] Chronic kidney disease, unspecified Depression Diabetes mellitus type 2, controlled ([facility] [place] [place]) Difficulty walking DM (diabetes mellitus) ([facility] [place] [place]) MALHOTRA (dyspnea on exertion) Heart failure, systolic ([facility] [place] [place]) Hyperlipidemia Hypertension Hypothyroidism Infectious viral hepatitis Muscle weakness (generalized) Obesity Obstructive chronic bronchitis without exacerbation ([facility] [place] [place]) Post-COVID syndrome resolved Stroke ([facility] [place] [place]) Past Surgical History: Procedure Laterality Date APPENDECTOMY CHOLECYSTECTOMY TONSILLECTOMY Pt admitted after syncopal episode during dialysis. Pt agreeable to PT. Visit RN Communication: Yes Medical Record Reviewed: Yes PT Type of Visit: Evaluation Precautions Activity: early mobility guidelines Oxygen Used: pt on 2L via nasal cannula Subjective Physical Therapy Comments: Pt agreeable to PT. Pt reports using adrian lift to transfer to/from wc. Reports using wheelchair for mobility Pain Assessment Pain Assessment: No/denies pain Home Living Type of Home: Facility Prior Function Lives With: Other (Comment) (ECF) Level of Mobility: Needs assistance with ADLs or functional transfers or gait Transfers: Total assist (adrian) Mobility: (propels wheelchair for mobility) Bath: Mod assist (pt reports she assists with UE bathing/dressing) Dressing: Mod assist Grooming: Mod assist Homemaking Assistance: Needs assistance (pt has assist for all homemaking tasks) Hearing / Speech / Vision Hearing: Within Functional Limits Speech: Within Functional Limits Cognition Overall Cognitive Status: Within Functional Limits Orientation Level: Oriented X4 Bed Mobility Rolling: Max assist, Right, Left Supine to Sit: Unable to assess Transfers Other: deferred, pt using adrian FANS CLERK Gait Other: deferred, pt using adrian for transfers, non amb FANS CLERK, uses WC for mobility RLE Assessment: Exceptions to WFL (strength 3-/5, limited hip/knee ROM) LLE Assessment: Exceptions to WFL (strength 3-/5, limited hip/knee ROM) Activity Tolerance Endurance: Tolerates <30 minutes activity WITHOUT vital sign changes Plan Physical Therapy Care Plan Physical Therapy Care Plan (Active) Template: PT - Physical Therapy Problem: Bed Mobility Dates: Start: 04/21/24 Disciplines: PT Goal: Patient will perform bed mobility with Minimum Assist Dates: Start: 04/21/24 Expected End: 05/01/24 Disciplines: PT Problem: Strength Dates: Start: 04/21/24 Disciplines: PT Goal: Improve strength Dates: Start: 04/21/24 Expected End: 05/01/24 Description: Of extremity/ location: bilat LE To facilitate: improved mobility Disciplines: PT Physical Therapy Care Plan (Resolved) There are no resolved problems. Principal Problem: Episode of syncope Problem: Urinary Incontinence Goal: Perineal skin integrity is maintained or improved Description: INTERVENTIONS 1. Assess genitourinary system, perineal skin, labs (urinalysis), and history of incontinence to include past management, aggravating, and alleviating factors 2. Keep skin clean and dry 3. Apply skin protectant 4. Develop skin care regimen 5. Provide privacy when changing patients incontinence device to maintain their dignity 6. Consider placing an indwelling catheter 7. Collaborate with interdisciplinary team and initiate plans and interventions as needed Outcome: Progressing Note: Evaluation of progress towards goal: diminished urine output, HD pt, ex cath applied documented in this encounter [facility] 04-23-2024 Progress note Formatting of t his note might be different from the original. DISCHARGE PLANNING NOTE CRF/Med Rec sent to. [facility] (P# [phone] ; F# [phone]) [facility] 04-23-2024 Progress note Formatting of t his note might be different from the original. DISCHARGE PLANNING NOTE Pt was discussed in Daily Transition Rounds. Chart reviewed. SW informed of discharge this day. Transport set for 1745 via [facility]. HUB tasked with sending CRF to [facility]. SW sent CRF to [facility]. SW signing off. [facility] 04-23-2024 Progress note Formatting of t his note might be different from the original. DISCHARGE PLANNING NOTE SW is following for pt's return to [facility]. Facility did request VBG prior to discharge. Team Informed. Facility will accept pt upon discharge. DAVIN/CN following. [facility] 04-23-2024 Progress note Formatting of t his note is different from the original. Occupational Therapy OT Type of Visit: Medical deferral Reason For Medical Deferral: (OT attempt to see patient 2x today, initially patient having bed side testing complete. Second attempt, patient falling asleep and not actively participating in answering questions. Patient appears to be at her baseline for ECF) OT will hold at this time, and attempt when patient more awake and alert. [facility] 04-23-2024 History of Presen t illness Narrative NEPHROLOGY PROGRESS NOTE Date of Admission: 04/21/2024 1:50 AM Reason for Consult: Management of hemodialysis dependent end-stage renal disease. Requesting physician: Joseph Pleitez MD Interval history: Patient was seen and examined today and she does not have any acute complaints. She received acute hemodialysis yesterday per [facility] holiday schedule. She clotted the dialyzer was and will use heparin with next dialysis. 2.3 kg of fluid was removed. History of Present Illness: Janay Schilling is a 74 y.o. 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 She is a resident of [facility]. She has had previous episodes of presyncope. Blood pressure at presentation was 155/89 mmHg with temperature 97.9 F and oxygen saturation 99% on room air. Today she feels better and denies headache or dizziness during this encounter. Home Meds: Medications Prior to Admission Medication Sig Dispense Refill Last Dose/Taking acetaminophen (TYLENOL) 500 mg tablet Take 1 tablet (500 mg total) by mouth every 4 (four) hours as needed for pain. Past Week atorvastatin (LIPITOR) 40 mg tablet Take 2 tablets (80 mg total) by mouth in the morning. 04/20/2024 Morning bumetanide (BUMEX) 0.5 mg tablet Take 1 tablet (0.5 mg total) by mouth daily. 30 tablet 0 04/20/2024 Morning carvediloL (COREG) 3.125 mg tablet Take 1 tablet (3.125 mg total) by mouth once daily at bedtime. Hold for HR less than 60 04/20/2024 Evening cetirizine (ZyrTEC) 10 mg tablet Take 1 tablet (10 mg total) by mouth in the morning. 04/20/2024 Morning docusate sodium (COLACE) 100 mg capsule Take 1 capsule (100 mg total) by mouth in the morning and 1 capsule (100 mg total) before bedtime. 04/20/2024 Morning ergocalciferol (DRISDOL) 1,250 mcg (50,000 unit) capsule Take 1 capsule (50,000 Units total) by mouth in the morning. Give 1 capsule by mouth one time daily starting on the and ending on the every month.. 04/20/2024 Morning guaiFENesin (MUCINEX) 600 mg tablet extended release 12hr Take 1 tablet (600 mg total) by mouth every 12 (twelve) hours as needed (congestion). Past Week isosorbide mononitrate (IMDUR) 30 mg 24 hr tablet Take 1 tablet (30 mg total) by mouth daily. 04/20/2024 Morning levothyroxine sodium (LEVOTHYROXINE ORAL) Take 188 mcg by mouth in the morning. 04/20/2024 Morning losartan (COZAAR) 50 mg tablet Take 1 tablet (50 mg total) by mouth. Mon, Wed, Fri, Sun 04/20/2024 Morning polyethylene glycol (MIRALAX) 17 gram/dose powder Take 17 g by mouth in the morning. Past Week sennosides-docusate sodium (SENNA WITH DOCUSATE SODIUM) 8.6-50 mg Take 1 tablet by mouth in the morning and 1 tablet before bedtime. Past Week sertraline (ZOLOFT) 100 mg tablet Take 2 tablets (200 mg total) by mouth in the morning. 04/20/2024 Morning sevelamer (RENVELA) 800 mg tablet Take 1 tablet (800 mg total) by mouth in the morning and 1 tablet (800 mg total) in the evening. Take with meals. 04/20/2024 Morning vitamin B djronu-O-RK-zinc cit (DIALYVITE 800 WITH ZINC 15) 0.8-15 mg tablet Take 1 tablet by mouth every morning. 04/20/2024 Morning albuterol (PROVENTIL HFA;VENTOLIN HFA) 90 mcg/actuation inhaler Inhale 2 puffs every 4 (four) hours as needed for wheezing or shortness of breath. (Patient not taking: Reported on 04/21/2024) Unknown LANTUS SOLOSTAR U-100 INSULIN 100 unit/mL (3 mL) insulin pen Inject 12 Units under the skin in the morning. midodrine (PROAMATINE) 5 mg tablet Take 1 tablet (5 mg total) by mouth. One tablet, one time daily, on days , , and Tue. Hold if SMP is greater than 110 (Patient not taking: Reported on 04/21/2024) Unknown Inpatient Meds: atorvastatin, 80 mg, oral, Daily bumetanide, 0.5 mg, oral, Daily carvediloL, 6.25 mg, oral, HS docusate sodium, 100 mg, oral, BID heparin (porcine), 5,000 Units, subcutaneous, Q8H MARC insulin glargine, 12 Units, subcutaneous, Daily insulin lispro, 2-10 Units, subcutaneous, TID with meals insulin lispro, 2-8 Units, subcutaneous, Nightly isosorbide mononitrate, 30 mg, oral, Daily levothyroxine, 200 mcg, oral, Daily loratadine, 10 mg, oral, Daily losartan, 100 mg, oral, Daily polyethylene glycol, 17 g, oral, Daily sevelamer, 800 mg, oral, BID with meals sodium chloride, 3 mL, intravenous, Q12H [facility] Physical Exam: Admission Weight: Weight: 101.1 kg (222 lb 14.2 oz) Vitals: Vitals: 04/22/24 1928 04/22/24 2338 04/23/24 0500 04/23/24 0720 BP: 148/49 142/48 159/55 Pulse: 69 69 69 Resp: 18 16 18 Temp: 37 C (98.6 F) 36.8 C (98.3 F) TempSrc: Oral Oral SpO2: 97% 98% 95% Weight: 100.8 kg (222 lb 3.6 oz) Height: INTAKE/OUTPUT: Intake/Output Summary (Last 24 hours) at 04/23/2024 0928 Last data filed at 04/23/2024 0500 Gross per 24 hour Intake 400 ml Output 2200 ml Net -1800 ml General Appearance: Healthy, alert, active, cooperative, and in no distress Head: Normocephalic, without obvious abnormality, atraumatic Eyes: conjunctivae/corneas clear. ENT: ENT exam normal, no neck nodes or sinus tenderness Neck: no adenopathy, no carotid bruit, no JVD Lungs: clear to auscultation bilaterally Heart: regular rate and rhythm, S1, S2 normal, no murmur, click, rub or gallop Abdomen: soft, non-tender; bowel sounds normal; no masses, no organomegaly Extremities: extremities normal, atraumatic, no cyanosis or edema Skin: Skin color, texture, turgor normal. No rashes or lesions Neurologic: no focal weakness. Can move all extremities Labs: Results from last 7 days Lab Units 04/23/24 0409 04/22/24 0442 04/20/24 1425 POTASSIUM mmol/L 4.3 5.0 3.6 CHLORIDE mmol/L 99 96* 95* CO2 mmol/L 25 26 27 BUN mg/dL 29* 43* 19 CREATININE mg/dL 3.61* 4.84* 3.14* CALCIUM mg/dL 8.4* 8.7 8.6 Results from last 7 days Lab Units 04/23/24 0409 04/22/24 0442 04/20/24 1425 WBC X10E9/L 5.8 6.3 6.7 HEMOGLOBIN g/dL 11.9 11.7 11.8 HEMATOCRIT % 38.0 36.6 37.6 PLATELETS X10E9/L 131* 135* 145* Results from last 7 days Lab Units 04/23/24 0409 04/22/24 0442 04/20/24 1425 MAGNESIUM mg/dL 1.9 2.0 1.7* Lab Results Component Value Date CALCIUM 8.4 (L) 04/23/2024 Lab Results Component Value Date IRON 41 (L) 07/13/2019 TIBC 361 07/13/2019 Assessment/plan: 1. End-stage renal disease - we will maintain Tuesday, Tuesday and Tuesday hemodialysis schedule. Renal diet- 2 gram sodium,2 gram potassium,1500 ml fluid restriction,1800 KCal,1 gram phosphorus and 1.2 gram/kg/day high biologic value protein. 2. Syncope - MRI suggested abnormal left vertebral artery flow. Neurology input is noted and no renal objection to low-dose aspirin. 3. Anemia of chronic kidney disease - hemoglobin 11.9 g/dL is within target range. 4. Systemic hypertension - blood pressure control is adequate. Prognosis is guarded. No renal objection to discharge today. - Tiffanie Orosco MD 04/23/24 9:28 AM Attending furnace mason Prognosis is guarded. Thank you very much for the courtesy and confidence of this consultation. TIFFANIE OROSCO MD FACP Attending Clinical Chimney Builder ANY QUESTIONS FEEL FREE TO CALL: 1. OFFICE [phone] NEPHROLOGY PROGRESS NOTE Date of Admission: 04/21/2024 1:50 AM Reason for Consult: Management of hemodialysis dependent end-stage renal disease. Requesting physician: Joseph Pleitez MD Interval history: Patient was seen and examined today and she does not have any acute complaints. Neurology input is noted. History of Present Illness: Janay Schilling is a 74 y.o. 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 She is a resident of [facility]. She has had previous episodes of presyncope. Blood pressure at presentation was 155/89 mmHg with temperature 97.9 F and oxygen saturation 99% on room air. Today she feels better and denies headache or dizziness during this encounter. Home Meds: Medications Prior to Admission Medication Sig Dispense Refill Last Dose/Taking acetaminophen (TYLENOL) 500 mg tablet Take 1 tablet (500 mg total) by mouth every 4 (four) hours as needed for pain. Past Week atorvastatin (LIPITOR) 40 mg tablet Take 2 tablets (80 mg total) by mouth in the morning. 04/20/2024 Morning bumetanide (BUMEX) 0.5 mg tablet Take 1 tablet (0.5 mg total) by mouth daily. 30 tablet 0 04/20/2024 Morning carvediloL (COREG) 3.125 mg tablet Take 1 tablet (3.125 mg total) by mouth once daily at bedtime. Hold for HR less than 60 04/20/2024 Evening cetirizine (ZyrTEC) 10 mg tablet Take 1 tablet (10 mg total) by mouth in the morning. 04/20/2024 Morning docusate sodium (COLACE) 100 mg capsule Take 1 capsule (100 mg total) by mouth in the morning and 1 capsule (100 mg total) before bedtime. 04/20/2024 Morning ergocalciferol (DRISDOL) 1,250 mcg (50,000 unit) capsule Take 1 capsule (50,000 Units total) by mouth in the morning. Give 1 capsule by mouth one time daily starting on the and ending on the every month.. 04/20/2024 Morning guaiFENesin (MUCINEX) 600 mg tablet extended release 12hr Take 1 tablet (600 mg total) by mouth every 12 (twelve) hours as needed (congestion). Past Week isosorbide mononitrate (IMDUR) 30 mg 24 hr tablet Take 1 tablet (30 mg total) by mouth daily. 04/20/2024 Morning levothyroxine sodium (LEVOTHYROXINE ORAL) Take 188 mcg by mouth in the morning. 04/20/2024 Morning losartan (COZAAR) 50 mg tablet Take 1 tablet (50 mg total) by mouth. Mon, Wed, Fri, Sun 04/20/2024 Morning polyethylene glycol (MIRALAX) 17 gram/dose powder Take 17 g by mouth in the morning. Past Week sennosides-docusate sodium (SENNA WITH DOCUSATE SODIUM) 8.6-50 mg Take 1 tablet by mouth in the morning and 1 tablet before bedtime. Past Week sertraline (ZOLOFT) 100 mg tablet Take 2 tablets (200 mg total) by mouth in the morning. 04/20/2024 Morning sevelamer (RENVELA) 800 mg tablet Take 1 tablet (800 mg total) by mouth in the morning and 1 tablet (800 mg total) in the evening. Take with meals. 04/20/2024 Morning vitamin B wnaidu-P-PY-zinc cit (DIALYVITE 800 WITH ZINC 15) 0.8-15 mg tablet Take 1 tablet by mouth every morning. 04/20/2024 Morning albuterol (PROVENTIL HFA;VENTOLIN HFA) 90 mcg/actuation inhaler Inhale 2 puffs every 4 (four) hours as needed for wheezing or shortness of breath. (Patient not taking: Reported on 04/21/2024) Unknown LANTUS SOLOSTAR U-100 INSULIN 100 unit/mL (3 mL) insulin pen Inject 12 Units under the skin in the morning. midodrine (PROAMATINE) 5 mg tablet Take 1 tablet (5 mg total) by mouth. One tablet, one time daily, on days , , and Tue. Hold if SMP is greater than 110 (Patient not taking: Reported on 04/21/2024) Unknown Inpatient Meds: atorvastatin, 80 mg, oral, Daily bumetanide, 0.5 mg, oral, Daily carvediloL, 3.125 mg, oral, HS docusate sodium, 100 mg, oral, BID heparin (porcine), 5,000 Units, subcutaneous, Q8H MARC insulin glargine, 12 Units, subcutaneous, Daily insulin lispro, 2-10 Units, subcutaneous, TID with meals insulin lispro, 2-8 Units, subcutaneous, Nightly isosorbide mononitrate, 30 mg, oral, Daily levothyroxine, 188 mcg, oral, Daily loratadine, 10 mg, oral, Daily losartan, 100 mg, oral, Daily polyethylene glycol, 17 g, oral, Daily sevelamer, 800 mg, oral, BID with meals sodium chloride, 3 mL, intravenous, Q12H [facility] Physical Exam: Admission Weight: Weight: 101.1 kg (222 lb 14.2 oz) Vitals: Vitals: 04/21/24 2151 04/22/24 0056 04/22/24 0725 04/22/24 0728 BP: 128/43 128/46 183/49 181/56 Pulse: 65 63 Resp: 18 18 Temp: 36.7 C (98 F) 36.3 C (97.4 F) TempSrc: Axillary Oral SpO2: 92% 100% Weight: Height: INTAKE/OUTPUT: No intake or output data in the 24 hours ending 04/22/24 1025 General Appearance: Healthy, alert, active, cooperative, and in no distress Head: Normocephalic, without obvious abnormality, atraumatic Eyes: conjunctivae/corneas clear. ENT: ENT exam normal, no neck nodes or sinus tenderness Neck: no adenopathy, no carotid bruit, no JVD Lungs: clear to auscultation bilaterally Heart: regular rate and rhythm, S1, S2 normal, no murmur, click, rub or gallop Abdomen: soft, non-tender; bowel sounds normal; no masses, no organomegaly Extremities: extremities normal, atraumatic, no cyanosis or edema Skin: Skin color, texture, turgor normal. No rashes or lesions Neurologic: no focal weakness. Can move all extremities Labs: Results from last 7 days Lab Units 04/22/24 0442 04/20/24 1425 POTASSIUM mmol/L 5.0 3.6 CHLORIDE mmol/L 96* 95* CO2 mmol/L 26 27 BUN mg/dL 43* 19 CREATININE mg/dL 4.84* 3.14* CALCIUM mg/dL 8.7 8.6 Results from last 7 days Lab Units 04/22/24 0442 04/20/24 1425 WBC X10E9/L 6.3 6.7 HEMOGLOBIN g/dL 11.7 11.8 HEMATOCRIT % 36.6 37.6 PLATELETS X10E9/L 135* 145* Results from last 7 days Lab Units 04/22/24 0442 04/20/24 1425 MAGNESIUM mg/dL 2.0 1.7* Lab Results Component Value Date CALCIUM 8.7 04/22/2024 Lab Results Component Value Date IRON 41 (L) 07/13/2019 TIBC 361 07/13/2019 Assessment/plan: 1. End-stage renal disease - we will maintain Tuesday, Tuesday and Tuesday hemodialysis schedule. However, patient will receive acute hemodialysis today per [place] dialysis holiday schedule. Renal diet- 2 gram sodium,2 gram potassium,1500 ml fluid restriction,1800 KCal,1 gram phosphorus and 1.2 gram/kg/day high biologic value protein. 2. Syncope - MRI suggested abnormal left vertebral artery flow. 3. Anemia of chronic kidney disease - hemoglobin 11.7 g/dL is within target range. 4. Systemic hypertension - blood pressure control is adequate. Prognosis is guarded. - Tiffanie Orosco MD 04/22/24 10:25 AM Attending furnace mason Prognosis is guarded. Thank you very much for the courtesy and confidence of this consultation. TIFFANIE OROSCO MD FACP Attending Clinical Chimney Builder ANY QUESTIONS FEEL FREE TO CALL: 1. OFFICE [phone] Images from the original note were not included. [facility] INTERNAL MEDICINE [facility] [address] [place] [id number] Hospital Medicine Progress Note Patient: Janay Schilling Date of : 1950 Room: PCP: NO PCP, NO PCP Admission date: 04/21/2024 1:50 AM Encounter date: 04/22/24 Hospital Day: 2 SUBJECTIVE Chief complaints: No chief complaint on file. Interval History: Status: improved. Patient seen and examined at bedside, no acute distress, overnight events, or nursing concerns. Patient doing well, no further episodes of syncope. Orthostatic BP ordered. Planning on completing ECHO tomorrow, likely discharge following. Review of Systems Review of Systems Constitutional: Negative for activity change, appetite change, chills, fatigue, fever and unexpected weight change. HENT: Negative for congestion, dental problem, hearing loss, rhinorrhea, sore throat, trouble swallowing and voice change. Eyes: Negative for discharge, itching and visual disturbance. Respiratory: Negative for apnea, cough, shortness of breath and wheezing. Cardiovascular: Negative for chest pain, palpitations and leg swelling. Gastrointestinal: Negative for abdominal distention, abdominal pain, blood in stool, constipation, diarrhea, nausea and vomiting. Genitourinary: Negative for difficulty urinating, dysuria, enuresis, frequency, genital sores and hematuria. Musculoskeletal: Negative for arthralgias, joint swelling and myalgias. Skin: Negative for color change, rash and wound. Allergic/Immunologic: Negative for environmental allergies. Neurological: Positive for syncope and weakness. Negative for dizziness, seizures, facial asymmetry, speech difficulty, numbness and headaches. Hematological: Negative for adenopathy. Does not bruise/bleed easily. Psychiatric/Behavioral: Negative for dysphoric mood and sleep disturbance. The patient is not nervous/anxious. All other systems reviewed and are negative. OBJECTIVE BP 162/65 Pulse 76 Temp 36.6 C (97.9 F) (Oral) Resp 16 Ht 162.6 cm (5' 4 ) Wt 101.1 kg (222 lb 14.2 oz) SpO2 100% BMI 38.26 kg/m No intake or output data in the 24 hours ending 04/22/24 1435 Physical Exam Physical Exam Vitals and nursing note reviewed. Constitutional: General: She is not in acute distress. Appearance: Normal appearance. She is well-developed. HENT: Head: Normocephalic and atraumatic. Right Ear: External ear normal. Left Ear: External ear normal. Nose: Nose normal. Right Sinus: No maxillary sinus tenderness or frontal sinus tenderness. Left Sinus: No maxillary sinus tenderness or frontal sinus tenderness. Mouth/Throat: Lips: Rawlings. Mouth: Mucous membranes are moist. Pharynx: Oropharynx is clear. Eyes: General: No scleral icterus. Extraocular Movements: Extraocular movements intact. Pupils: Pupils are equal, round, and reactive to light. Neck: Vascular: No carotid bruit or JVD. Cardiovascular: Rate and Rhythm: Normal rate and regular rhythm. Pulses: Radial pulses are 2+ on the right side and 2+ on the left side. Heart sounds: Normal heart sounds, S1 normal and S2 normal. No murmur heard. No friction rub. No gallop. Pulmonary: Effort: Pulmonary effort is normal. Breath sounds: Normal breath sounds. No decreased air movement. No decreased breath sounds, wheezing, rhonchi or rales. Abdominal: General: Bowel sounds are normal. Palpations: Abdomen is soft. Tenderness: There is no abdominal tenderness. Musculoskeletal: Cervical back: Full passive range of motion without pain. Right lower leg: No edema. Left lower leg: No edema. Skin: General: Skin is warm and dry. Capillary Refill: Capillary refill takes less than 2 seconds. Findings: No erythema, rash or wound. Neurological: General: No focal deficit present. Mental Status: She is alert and oriented to person, place, and time. Psychiatric: Attention and Perception: Attention normal. Mood and Affect: Mood and affect normal. Behavior: Behavior normal. Behavior is cooperative. Medications Scheduled: atorvastatin, 80 mg, oral, Daily bumetanide, 0.5 mg, oral, Daily carvediloL, 6.25 mg, oral, HS docusate sodium, 100 mg, oral, BID heparin (porcine), 5,000 Units, subcutaneous, Q8H MARC insulin glargine, 12 Units, subcutaneous, Daily insulin lispro, 2-10 Units, subcutaneous, TID with meals insulin lispro, 2-8 Units, subcutaneous, Nightly isosorbide mononitrate, 30 mg, oral, Daily levothyroxine, 188 mcg, oral, Daily loratadine, 10 mg, oral, Daily losartan, 100 mg, oral, Daily polyethylene glycol, 17 g, oral, Daily sevelamer, 800 mg, oral, BID with meals sodium chloride, 3 mL, intravenous, Q12H [facility] Infusions: As Needed: acetaminophen guaiFENesin hydrALAZINE prochlorperazine OR prochlorperazine OR prochlorperazine sennosides-docusate sodium sodium chloride Allergies: Amoxicillin and Doxycycline Labs Recent Results (from the past 24 hours) Bedside Glucose *Place/Obtain serum glucose if >500(>600 MRH) per glucometer. Collection Time: 04/21/24 5:36 PM Result Value Ref Range Bedside glucose 135 (H) 65 - 99 mg/dL Bedside Glucose *Place/Obtain serum glucose if >500(>600 MRH) per glucometer. Collection Time: 04/21/24 10:36 PM Result Value Ref Range Bedside glucose 186 (H) 65 - 99 mg/dL Comprehensive metabolic panel Collection Time: 04/22/24 4:42 AM Result Value Ref Range Sodium 130 (L) 134 - 146 mmol/L Potassium, Bld 5.0 3.5 - 5.0 mmol/L Chloride 96 (L) 98 - 109 mmol/L CO2 26 22 - 32 mmol/L Anion gap 8 5 - 15 mmol/L BUN 43 (H) 5 - 27 mg/dL Creatinine 4.84 (H) 0.40 - 1.00 mg/dL Glucose 168 (H) 65 - 99 mg/dL Calcium 8.7 8.5 - 10.5 mg/dL Total Protein 6.3 6.0 - 8.0 g/dL Albumin 3.2 3.2 - 5.3 g/dL Alkaline Phosphatase 86 39 - 130 U/L AST 15 0 - 41 U/L ALT 15 0 - 31 U/L Total bilirubin 0.7 0.3 - 1.2 mg/dL eGFR (CKD-EPI)non-race dependent 9 (L) >59 ml/min/1.73sq.m Magnesium Collection Time: 04/22/24 4:42 AM Result Value Ref Range Magnesium 2.0 1.8 - 2.6 mg/dL CBC auto differential Collection Time: 04/22/24 4:42 AM Result Value Ref Range White Blood Cells 6.3 4.0 - 11.0 X10E9/L RBC count 3.84 3.80 - 5.20 X10E12/L Hemoglobin 11.7 11.7 - 15.5 g/dL Hematocrit 36.6 35 - 47 % MCV 95 80 - 100 fL MCH 30.4 27 - 34 pg MCHC 31.9 (L) 32 - 36 g/dL RDW 22.0 (H) 11.5 - 15.0 % Platelets 135 (L) 150 - 450 X10E9/L MPV 8.8 7 - 12 fL % neutrophils 56.9 % % lymphocytes 32.4 % % monocytes 5.3 % % eosinophils 4.4 % % Basophils 1.0 % Neutrophils Absolute (A) 3.6 1.5 - 6.6 X10E9/L Lymphocytes Absolute 2.0 1.0 - 3.5 X10E9/L Monocytes Absolute 0.3 0 - 0.9 X10E9/L Eosinophils Absolute 0.3 0.0 - 0.4 X10E9/L Basophils Absolute 0.1 0.0 - 0.2 X10E9/L Hepatitis B surface antigen Collection Time: 04/22/24 4:42 AM Result Value Ref Range Hepatitis B Surface Ag Non-Reactive Non-Reactive^Non-Reactive Bedside Glucose *Place/Obtain serum glucose if >500(>600 MRH) per glucometer. Collection Time: 04/22/24 7:15 AM Result Value Ref Range Bedside glucose 157 (H) 65 - 99 mg/dL Bedside Glucose *Place/Obtain serum glucose if >500(>600 MRH) per glucometer. Collection Time: 04/22/24 11:17 AM Result Value Ref Range Bedside glucose 206 (H) 65 - 99 mg/dL Radiology MRA neck without contrast Result Date: 04/21/2024 Narrative: History: [Hemorrhagic stroke.] MR brain mentioned abnormal left vertebral artery. [ PROCEDURE: MR and MRA of the neck was obtained without contrast. FINDINGS: There is no prior MRA of the neck. This MRA of the neck is severely limited by marked motion artifact] The carotid arteries and right vertebral artery have some flow signal. The left vertebral artery does not have any appreciable flow signal. Impression: [The MR examination is markedly limited by motion artifact. The carotid and right vertebral arteries have flow signal and are likely patent. Stenosis cannot be excluded]. However, there is no obvious signal on this very limited examination in the left vertebral artery, suggestive of either hypoplasia or occlusion.. Finalized by Garett Love MD on 04/21/2024 4:50 PM MRA head without contrast Result Date: 04/21/2024 Narrative: MR MRA HEAD WO CONT: 04/21/2024 PROVIDED HISTORY: * 74 years old Female * Stroke, hemorrhagic COMPARISON: MRI brain 04/21/2024 TECHNIQUE: MRA of [place] performed without intravenous contrast. Source and 3-D [id number] MIP images were obtained and reviewed. FINDINGS: Motion degraded examination. No flow related signal of the partially visualized cervical and intracranial vertebral artery with questionable minimal signal proximal to the basilar confluence. Left posterior inferior cerebellar artery signal was not definitively visualized. Left anterior inferior cerebellar artery appears patent. Distal right vertebral artery and basilar artery are within normal limits for technique. Left posterior inferior cerebellar artery is patent, with impression of the level of the foremen magnum. Superior cerebellar artery origins are patent. Limited flow-related signal of the posterior cerebral arteries bilaterally, likely region of the ambient cistern, though with resumption of more robust flow-related signal. Distal internal carotid arteries with scattered luminal irregularities, likely related to intracranial atherosclerotic disease, though without evidence of high-grade stenosis. Anterior communicating artery and anterior cerebral arteries are patent. Middle cerebral arteries are patent with mild luminal irregularities on the right greater than left, likely related to intracranial atherosclerosis. Mild asymmetrically decreased caliber of the proximal right M2 branches, though with resumption of normal flow-related signal distally. Bilateral ophthalmic artery origins are visualized. No large vessel occlusion, high-grade stenosis, aneurysm, or malformation of the anterior, middle, or posterior cerebral arteries. IMPRESSION: Motion degraded examination. 1. No flow related signal of the visualized left vertebral artery, suggestive of chronic occlusion. 2. Decreased flow related signal of posterior cerebral arteries and right middle cerebral artery proximally with more robust signal distally, possibly u.s. representative of a combination of artifact and intracranial atherosclerosis, though without definite evidence of high-grade stenosis. Continued attention on follow-up contrast enhanced imaging, as clinically warranted. 3. Otherwise no large vessel occlusion, high-grade stenosis, or aneurysm of the remainder of the [place] circulation. Finalized by Denton Redd MD on 04/21/2024 4:36 PM MR brain without contrast Result Date: 04/21/2024 Narrative: STUDY: MRI brain without contrast CLINICAL HISTORY: Stroke, hemorrhagic COMPARISON: CTA head dated 04/20/2024 TECHNIQUE: Routine multiplanar multisequence MR imaging of the brain was performed without contrast. FINDINGS: No acute ischemia, no acute intracranial hemorrhage. No ventricular outflow obstruction. Moderate burden white matter FLAIR hyperintensities are the deep, subcortical and periventricular white matter. Moderate global parenchymal volume loss. Abnormal left vertebral artery. Otherwise unremarkable intracranial vascular flow voids. Asymmetric left mastoid fluid. Unremarkable visualized suprahyoid neck, orbits, scalp soft tissues. Edentulous. IMPRESSION: 1. Abnormal left vertebral artery [slow flow versus occlusion], recommend correlation with vascular imaging. 2. No acute ischemia 3. Moderate global parenchymal volume loss. Mild/moderate burden white matter FLAIR hyperintensities, most often seen in the setting of chronic microvascular ischemia. 4. Symmetric left mastoid fluid, correlate for clinical signs of mastoiditis. THIS REPORT CONTAINS A SIGNIFICANT RESULT AND/OR RECOMMENDATION, WHICH REQUIRES THE ATTENTION OF THE LICENSED CAREGIVER RESPONSIBLE FOR THIS PATIENT. THEREFORE, I SPECIFICALLY DESIGNATED THIS REPORT TO BE TELEPHONED BY THE RADIOLOGY DEPARTMENT. FINDINGS WERE INSTRUCTED TO BE CALLED TO THE CLINICAL SERVICE ON 04/21/2024 1:31 PM Finalized by Jose Alfredo Ordonez MD on 04/21/2024 1:31 PM X-ray chest 1 view Result Date: 04/21/2024 Narrative: XR CHEST 1 VW: 04/21/2024 10:54 AM Clinical: Cough Upright portable chest is compared with 01/12/2024. Exam limited by apical lordotic positioning. Continued elevation right hemidiaphragm. Heart size remains enlarged. No acute consolidation, large effusion, or pneumothorax. IMPRESSION: * No acute disease to limits of this portable exam. Finalized by Jose Antonio Casanova MD on 04/21/2024 11:[address] brain without contrast Result Date: 04/20/2024 Narrative: EXAM: CT BRAIN WO CONT CLINICAL INFORMATION: Mental status change, unknown cause. TECHNIQUE: CT head was performed without contrast utilizing 2.5 mm axial reconstruction with images reviewed in bone and brain windows. Automated exposure control was utilized. COMPARISON: 10/27/2022 FINDINGS: There is no evidence for an acute intra or extra-axial hemorrhage. There is a background of patchy and confluent low attenuation within the white matter, most commonly attributable to the sequela of chronic ischemic small vessel disease. The callaway-white matter differentiation is preserved. There is no intracranial mass effect. The ventricles are proportional to the overall brain volume without evidence for outflow obstruction. There is no shift of the midline structures and the basal cisterns are widely patent. There are no depressed or widely calvarial fractures. The paranasal sinuses are well aerated. The mastoids are clear. IMPRESSION: 1. No acute intracranial abnormalities. 2. White matter changes, most commonly attributable to the sequela of chronic ischemic small vessel disease. 3. Please note, hyperacute ischemia can remain occult on CT. If there is persistent concern for acute ischemia, further evaluation with a dedicated MRI is recommended as clinically indicated. All CT scans at this facility use dose modulation, iterative reconstruction, and/or weight based dosing when appropriate to reduce radiation dose to as low as reasonably achievable. Finalized by Armando Milton MD on 04/20/2024 3:58 PM HOSPITAL PROBLEM LIST Principal Problem: Episode of syncope Active Problems: Class 3 severe obesity due to excess calories in adult ([facility] [place] [place]) Essential hypertension Hypothyroidism Diabetes type 2, controlled ([facility] [place] [place]) ESRD (end stage renal disease) on dialysis ([facility] [place] [place]) ASSESSMENT & PLAN Episode of syncope Neurology consulted Syncopal episode following dialysis Orthostatic blood pressure daily BP 183/49 lying and 181/56 sitting, patient unable to stand ECHO pending Essential hypertension Increase coreg to 6.25 mg nightly Losartan 100 mg daily Hypothyroidism TSH 29.6 Increase Synthroid 200 mcg daily Recheck in 3 months Type 2 diabetes mellitus ACHS glucose checks with sliding scale insulin coverage Lantus 12 units daily ESRD (end stage renal disease) on dialysis Nephrology consulted Tuesday dialysis Renvela 800 mg BID DVT Prophylaxis: EPC's and Heparin Subcut DC Planning: Pending clinical course and Pending final recommendations from consulting services IRINA Avilez, 04/22/2024 2:35 PM [facility] 7AM-7PM (all facilities): EpicChat or page through [employer]. 7PM-7AM ([facility], [facility]): EpicChat or page, [phone]. 7PM-7AM ([facility] [place], [place] [facility] Rehab): EpicChat or page through [employer]. This note was completed using a voice stud master/mistress system. Every effort is made to ensure accuracy, however inadvertent errors may occur. IRINA Avilez 04/22/24 0598 I have seen and evaluated the patient, and have reviewed the history above and agree. I have repeated the flores portions of the physical exam and concur with the KYLE findings. I have reviewed all laboratory findings and imaging reports/films. I agree with the plan as noted above Dr Joseph Pleitez MD, MRCP 04/22/2024 5:14 PM documented in this encounter [facility] 04-23-2024 Hospital course Narrative Images from the original note were not included. [facility] [id number] [facility] [id number] Hospital Medicine Discharge Summary Patient: Janay Schilling Date of : 1950 Room: [address] [place] [address] Encounter date: 04/23/24 Hospital Day: 3 DATE OF ADMISSION: 04/21/2024 DATE OF DISCHARGE:04/23/2024 DISCHARGE DIAGNOSES Principal Problem: Episode of syncope Active Problems: Class 3 severe obesity due to excess calories in adult ([facility] [place] [place]) Essential hypertension Hypothyroidism Diabetes type 2, controlled ([facility] [place] [place]) ESRD (end stage renal disease) on dialysis ([facility] [place] [place]) CONSULTANTS Nephrology Neurology PCP: NO PCP, NO PCP PROCEDURES None ROS Review of Systems Constitutional: Negative for activity change, appetite change, chills, fatigue, fever and unexpected weight change. HENT: Negative for congestion, dental problem, hearing loss, rhinorrhea, sore throat, trouble swallowing and voice change. Eyes: Negative for discharge, itching and visual disturbance. Respiratory: Negative for apnea, cough, shortness of breath and wheezing. Cardiovascular: Negative for chest pain, palpitations and leg swelling. Gastrointestinal: Negative for abdominal distention, abdominal pain, blood in stool, constipation, diarrhea, nausea and vomiting. Genitourinary: Negative for difficulty urinating, dysuria, enuresis, frequency, genital sores and hematuria. Musculoskeletal: Negative for arthralgias, joint swelling and myalgias. Skin: Negative for color change, rash and wound. Allergic/Immunologic: Negative for environmental allergies. Neurological: Positive for weakness. Negative for dizziness, seizures, syncope, facial asymmetry, speech difficulty, numbness and headaches. Hematological: Negative for adenopathy. Does not bruise/bleed easily. Psychiatric/Behavioral: Negative for dysphoric mood and sleep disturbance. The patient is not nervous/anxious. All other systems reviewed and are negative. Physical Exam Physical Exam Vitals and nursing note reviewed. Constitutional: General: She is not in acute distress. Appearance: Normal appearance. She is well-developed. HENT: Head: Normocephalic and atraumatic. Right Ear: External ear normal. Left Ear: External ear normal. Nose: Nose normal. Right Sinus: No maxillary sinus tenderness or frontal sinus tenderness. Left Sinus: No maxillary sinus tenderness or frontal sinus tenderness. Mouth/Throat: Lips: Rawlings. Mouth: Mucous membranes are moist. Pharynx: Oropharynx is clear. Eyes: General: No scleral icterus. Extraocular Movements: Extraocular movements intact. Pupils: Pupils are equal, round, and reactive to light. Neck: Vascular: No carotid bruit or JVD. Cardiovascular: Rate and Rhythm: Normal rate and regular rhythm. Pulses: Radial pulses are 2+ on the right side and 2+ on the left side. Heart sounds: Normal heart sounds, S1 normal and S2 normal. No murmur heard. No friction rub. No gallop. Pulmonary: Effort: Pulmonary effort is normal. Breath sounds: Normal breath sounds. No decreased air movement. No decreased breath sounds, wheezing, rhonchi or rales. Abdominal: General: Bowel sounds are normal. Palpations: Abdomen is soft. Tenderness: There is no abdominal tenderness. Musculoskeletal: Cervical back: Full passive range of motion without pain. Right lower leg: No edema. Left lower leg: No edema. Skin: General: Skin is warm and dry. Capillary Refill: Capillary refill takes less than 2 seconds. Findings: No erythema, rash or wound. Neurological: General: No focal deficit present. Mental Status: She is alert and oriented to person, place, and time. Psychiatric: Attention and Perception: Attention normal. Mood and Affect: Mood and affect normal. Behavior: Behavior normal. Behavior is cooperative. HOSPITAL COURSE SUMMARY Janay Schilling is a 74 y.o. female who presented with single syncopal episode at dialysis within 30 minutes after treatment. Patient denies feeling unwell prior to this. Due to patient being an ESRD patient, was transferred to [facility] from [facility] due to them not having dialysis services on site. Patient had dialysis completed throughout admission as per normal schedule. 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 No intervention at this time, patient elevated stroke risk, recommending starting aspirin daily. She is bed ridden, orthostatic BP obtained but only with lying and sitting. Awaiting ECHO for discharge. Discharge Day Progress Note 04/23/24 Patient was seen and examined at bedside today. Hemodynamically stable. No chest pain, shortness of breath, fever, chills, nausea, vomiting, palpitations, or abdominal pain reported. No events reported overnight. Orthostatic BP negative. Patient had ECHO completed today. Start aspirin 81 mg daily per neurology, ok per nephrology. Synthroid increased to 200 mcg daily during admission. Order sent for thyroid profile in 3 months. Plan is for patient to discharge back to SNF on this date. Please see discharge medication reconciliation for most up-to-date medications at time of discharge. Follow up with PCP in 1-2 weeks or sooner as needed. Warning signs and symptoms discussed at length for more urgent follow ups/returning to ER for reevaluation. Expresses understanding and agrees with the current management plan along with plan for discharge. No other questions or concerns at this time. Code Status: Full Code Labs Recent Results (from the past 48 hours) Bedside Glucose *Place/Obtain serum glucose if >500(>600 MRH) per glucometer. Collection Time: 04/21/24 5:36 PM Result Value Ref Range Bedside glucose 135 (H) 65 - 99 mg/dL Bedside Glucose *Place/Obtain serum glucose if >500(>600 MRH) per glucometer. Collection Time: 04/21/24 10:36 PM Result Value Ref Range Bedside glucose 186 (H) 65 - 99 mg/dL Comprehensive metabolic panel Collection Time: 04/22/24 4:42 AM Result Value Ref Range Sodium 130 (L) 134 - 146 mmol/L Potassium, Bld 5.0 3.5 - 5.0 mmol/L Chloride 96 (L) 98 - 109 mmol/L CO2 26 22 - 32 mmol/L Anion gap 8 5 - 15 mmol/L BUN 43 (H) 5 - 27 mg/dL Creatinine 4.84 (H) 0.40 - 1.00 mg/dL Glucose 168 (H) 65 - 99 mg/dL Calcium 8.7 8.5 - 10.5 mg/dL Total Protein 6.3 6.0 - 8.0 g/dL Albumin 3.2 3.2 - 5.3 g/dL Alkaline Phosphatase 86 39 - 130 U/L AST 15 0 - 41 U/L ALT 15 0 - 31 U/L Total bilirubin 0.7 0.3 - 1.2 mg/dL eGFR (CKD-EPI)non-race dependent 9 (L) >59 ml/min/1.73sq.m Magnesium Collection Time: 04/22/24 4:42 AM Result Value Ref Range Magnesium 2.0 1.8 - 2.6 mg/dL CBC auto differential Collection Time: 04/22/24 4:42 AM Result Value Ref Range White Blood Cells 6.3 4.0 - 11.0 X10E9/L RBC count 3.84 3.80 - 5.20 X10E12/L Hemoglobin 11.7 11.7 - 15.5 g/dL Hematocrit 36.6 35 - 47 % MCV 95 80 - 100 fL MCH 30.4 27 - 34 pg MCHC 31.9 (L) 32 - 36 g/dL RDW 22.0 (H) 11.5 - 15.0 % Platelets 135 (L) 150 - 450 X10E9/L MPV 8.8 7 - 12 fL % neutrophils 56.9 % % lymphocytes 32.4 % % monocytes 5.3 % % eosinophils 4.4 % % Basophils 1.0 % Neutrophils Absolute (A) 3.6 1.5 - 6.6 X10E9/L Lymphocytes Absolute 2.0 1.0 - 3.5 X10E9/L Monocytes Absolute 0.3 0 - 0.9 X10E9/L Eosinophils Absolute 0.3 0.0 - 0.4 X10E9/L Basophils Absolute 0.1 0.0 - 0.2 X10E9/L Hepatitis B surface antigen Collection Time: 04/22/24 4:42 AM Result Value Ref Range Hepatitis B Surface Ag Non-Reactive Non-Reactive^Non-Reactive Bedside Glucose *Place/Obtain serum glucose if >500(>600 MRH) per glucometer. Collection Time: 04/22/24 7:15 AM Result Value Ref Range Bedside glucose 157 (H) 65 - 99 mg/dL Bedside Glucose *Place/Obtain serum glucose if >500(>600 MRH) per glucometer. Collection Time: 04/22/24 11:17 AM Result Value Ref Range Bedside glucose 206 (H) 65 - 99 mg/dL Bedside Glucose *Place/Obtain serum glucose if >500(>600 MRH) per glucometer. Collection Time: 04/22/24 5:19 PM Result Value Ref Range Bedside glucose 177 (H) 65 - 99 mg/dL Bedside Glucose *Place/Obtain serum glucose if >500(>600 MRH) per glucometer. Collection Time: 04/22/24 9:31 PM Result Value Ref Range Bedside glucose 227 (H) 65 - 99 mg/dL Comprehensive metabolic panel Collection Time: 04/23/24 4:09 AM Result Value Ref Range Sodium 130 (L) 134 - 146 mmol/L Potassium, Bld 4.3 3.5 - 5.0 mmol/L Chloride 99 98 - 109 mmol/L CO2 25 22 - 32 mmol/L Anion gap 6 5 - 15 mmol/L BUN 29 (H) 5 - 27 mg/dL Creatinine 3.61 (H) 0.40 - 1.00 mg/dL Glucose 192 (H) 65 - 99 mg/dL Calcium 8.4 (L) 8.5 - 10.5 mg/dL Total Protein 6.2 6.0 - 8.0 g/dL Albumin 3.1 (L) 3.2 - 5.3 g/dL Alkaline Phosphatase 88 39 - 130 U/L AST 21 0 - 41 U/L ALT 17 0 - 31 U/L Total bilirubin 0.5 0.3 - 1.2 mg/dL eGFR (CKD-EPI)non-race dependent 13 (L) >59 ml/min/1.73sq.m Magnesium Collection Time: 04/23/24 4:09 AM Result Value Ref Range Magnesium 1.9 1.8 - 2.6 mg/dL CBC auto differential Collection Time: 04/23/24 4:09 AM Result Value Ref Range White Blood Cells 5.8 4.0 - 11.0 X10E9/L RBC count 3.93 3.80 - 5.20 X10E12/L Hemoglobin 11.9 11.7 - 15.5 g/dL Hematocrit 38.0 35 - 47 % MCV 97 80 - 100 fL MCH 30.4 27 - 34 pg MCHC 31.4 (L) 32 - 36 g/dL RDW 22.5 (H) 11.5 - 15.0 % Platelets 131 (L) 150 - 450 X10E9/L MPV 9.7 7 - 12 fL % neutrophils 63.1 % % lymphocytes 26.7 % % monocytes 5.3 % % eosinophils 3.9 % % Basophils 1.0 % Neutrophils Absolute (A) 3.6 1.5 - 6.6 X10E9/L Lymphocytes Absolute 1.5 1.0 - 3.5 X10E9/L Monocytes Absolute 0.3 0 - 0.9 X10E9/L Eosinophils Absolute 0.2 0.0 - 0.4 X10E9/L Basophils Absolute 0.1 0.0 - 0.2 X10E9/L Anisocytosis 2+ (A) NONE^NONE Bedside Glucose *Place/Obtain serum glucose if >500(>600 MRH) per glucometer. Collection Time: 04/23/24 7:22 AM Result Value Ref Range Bedside glucose 167 (H) 65 - 99 mg/dL Bedside Glucose *Place/Obtain serum glucose if >500(>600 MRH) per glucometer. Collection Time: 04/23/24 11:01 AM Result Value Ref Range Bedside glucose 257 (H) 65 - 99 mg/dL Blood gas, venous Collection Time: 04/23/24 2:37 PM Result Value Ref Range Sample Type VENOUS Body Temp 37.0 37.0 C pH, Venous 7.251 (L) 7.320 - 7.420 PCO2, Venous 65.7 (H) 35 - 50 MMHG PO2, Venous 24 (L) 30 - 50 MMHG Base,Excess 0.0 0.0 - 2.0 MMOL/L Portable HCO3 28.9 (H) 20.0 - 24.0 MMOL/L % O2 Sat 32.0 (L) >80.0 % Jani's Test NA Sample Site N/A Insp. O2 Conc. 28 % Oxygen Source NC Radiology Echo complete W/ contrast Result Date: 04/23/2024 Narrative: The left ventricle appears normal in size. Severely increased LV wall thickness No obvious wall motion abnormality noted Normal LV systolic function, ejection fraction 55-60% Grade 1 LV diastolic dysfunction The right ventricle appears normal in size and function The left and right atrium appears normal in size The aortic valve was not well visualized no obvious, regurgitation or stenosis The mitral valve leaflet appears thickened, posterior mitral valve leaflet mobility is severely reduced As per Doppler study mean gradient 4 mm of mercury suggestive of mild mitral stenosis per the left atrium does not appear enlarged There was trace mitral regurgitation Trace tricuspid regurgitation no stenosis Right ventricular systolic pressure 27 mm of mercury Trace pulmonary regurgitation no stenosis Normal aortic root dimension The IVC appears normal in size, normal respiratory variation No significant pericardial effusion seen MRA neck without contrast Result Date: 04/21/2024 Narrative: History: [Hemorrhagic stroke.] MR brain mentioned abnormal left vertebral artery. [ PROCEDURE: MR and MRA of the neck was obtained without contrast. FINDINGS: There is no prior MRA of the neck. This MRA of the neck is severely limited by marked motion artifact] The carotid arteries and right vertebral artery have some flow signal. The left vertebral artery does not have any appreciable flow signal. Impression: [The MR examination is markedly limited by motion artifact. The carotid and right vertebral arteries have flow signal and are likely patent. Stenosis cannot be excluded]. However, there is no obvious signal on this very limited examination in the left vertebral artery, suggestive of either hypoplasia or occlusion.. Finalized by Garett Love MD on 04/21/2024 4:50 PM MRA head without contrast Result Date: 04/21/2024 Narrative: MR MRA HEAD WO CONT: 04/21/2024 PROVIDED HISTORY: * 74 years old Female * Stroke, hemorrhagic COMPARISON: MRI brain 04/21/2024 TECHNIQUE: MRA of [place] performed without intravenous contrast. Source and 3-D [id number] MIP images were obtained and reviewed. FINDINGS: Motion degraded examination. No flow related signal of the partially visualized cervical and intracranial vertebral artery with questionable minimal signal proximal to the basilar confluence. Left posterior inferior cerebellar artery signal was not definitively visualized. Left anterior inferior cerebellar artery appears patent. Distal right vertebral artery and basilar artery are within normal limits for technique. Left posterior inferior cerebellar artery is patent, with impression of the level of the foremen magnum. Superior cerebellar artery origins are patent. Limited flow-related signal of the posterior cerebral arteries bilaterally, likely region of the ambient cistern, though with resumption of more robust flow-related signal. Distal internal carotid arteries with scattered luminal irregularities, likely related to intracranial atherosclerotic disease, though without evidence of high-grade stenosis. Anterior communicating artery and anterior cerebral arteries are patent. Middle cerebral arteries are patent with mild luminal irregularities on the right greater than left, likely related to intracranial atherosclerosis. Mild asymmetrically decreased caliber of the proximal right M2 branches, though with resumption of normal flow-related signal distally. Bilateral ophthalmic artery origins are visualized. No large vessel occlusion, high-grade stenosis, aneurysm, or malformation of the anterior, middle, or posterior cerebral arteries. IMPRESSION: Motion degraded examination. 1. No flow related signal of the visualized left vertebral artery, suggestive of chronic occlusion. 2. Decreased flow related signal of posterior cerebral arteries and right middle cerebral artery proximally with more robust signal distally, possibly u.s. representative of a combination of artifact and intracranial atherosclerosis, though without definite evidence of high-grade stenosis. Continued attention on follow-up contrast enhanced imaging, as clinically warranted. 3. Otherwise no large vessel occlusion, high-grade stenosis, or aneurysm of the remainder of the [place] circulation. Finalized by Denton Redd MD on 04/21/2024 4:36 PM MR brain without contrast Result Date: 04/21/2024 Narrative: STUDY: MRI brain without contrast CLINICAL HISTORY: Stroke, hemorrhagic COMPARISON: CTA head dated 04/20/2024 TECHNIQUE: Routine multiplanar multisequence MR imaging of the brain was performed without contrast. FINDINGS: No acute ischemia, no acute intracranial hemorrhage. No ventricular outflow obstruction. Moderate burden white matter FLAIR hyperintensities are the deep, subcortical and periventricular white matter. Moderate global parenchymal volume loss. Abnormal left vertebral artery. Otherwise unremarkable intracranial vascular flow voids. Asymmetric left mastoid fluid. Unremarkable visualized suprahyoid neck, orbits, scalp soft tissues. Edentulous. IMPRESSION: 1. Abnormal left vertebral artery [slow flow versus occlusion], recommend correlation with vascular imaging. 2. No acute ischemia 3. Moderate global parenchymal volume loss. Mild/moderate burden white matter FLAIR hyperintensities, most often seen in the setting of chronic microvascular ischemia. 4. Symmetric left mastoid fluid, correlate for clinical signs of mastoiditis. THIS REPORT CONTAINS A SIGNIFICANT RESULT AND/OR RECOMMENDATION, WHICH REQUIRES THE ATTENTION OF THE LICENSED CAREGIVER RESPONSIBLE FOR THIS PATIENT. THEREFORE, I SPECIFICALLY DESIGNATED THIS REPORT TO BE TELEPHONED BY THE RADIOLOGY DEPARTMENT. FINDINGS WERE INSTRUCTED TO BE CALLED TO THE CLINICAL SERVICE ON 04/21/2024 1:31 PM Finalized by Jose Alfredo Ordonez MD on 04/21/2024 1:31 PM X-ray chest 1 view Result Date: 04/21/2024 Narrative: XR CHEST 1 VW: 04/21/2024 10:54 AM Clinical: Cough Upright portable chest is compared with 01/12/2024. Exam limited by apical lordotic positioning. Continued elevation right hemidiaphragm. Heart size remains enlarged. No acute consolidation, large effusion, or pneumothorax. IMPRESSION: * No acute disease to limits of this portable exam. Finalized by Jose Antonio Casanova MD on 04/21/2024 11:[address] brain without contrast Result Date: 04/20/2024 Narrative: EXAM: CT BRAIN WO CONT CLINICAL INFORMATION: Mental status change, unknown cause. TECHNIQUE: CT head was performed without contrast utilizing 2.5 mm axial reconstruction with images reviewed in bone and brain windows. Automated exposure control was utilized. COMPARISON: 10/27/2022 FINDINGS: There is no evidence for an acute intra or extra-axial hemorrhage. There is a background of patchy and confluent low attenuation within the white matter, most commonly attributable to the sequela of chronic ischemic small vessel disease. The callaway-white matter differentiation is preserved. There is no intracranial mass effect. The ventricles are proportional to the overall brain volume without evidence for outflow obstruction. There is no shift of the midline structures and the basal cisterns are widely patent. There are no depressed or widely calvarial fractures. The paranasal sinuses are well aerated. The mastoids are clear. IMPRESSION: 1. No acute intracranial abnormalities. 2. White matter changes, most commonly attributable to the sequela of chronic ischemic small vessel disease. 3. Please note, hyperacute ischemia can remain occult on CT. If there is persistent concern for acute ischemia, further evaluation with a dedicated MRI is recommended as clinically indicated. All CT scans at this facility use dose modulation, iterative reconstruction, and/or weight based dosing when appropriate to reduce radiation dose to as low as reasonably achievable. Finalized by Armando Milton MD on 04/20/2024 3:58 PM Discharge Medications: Medication List START taking these medications Instructions Last Dose Given Next Dose Due aspirin 81 mg Take 1 tablet (81 mg total) by mouth in the morning. CHANGE how you take these medications Instructions Last Dose Given Next Dose Due carvediloL 6.25 mg tablet Commonly known as: COREG What changed: medication strength how much to take additional instructions Take 1 tablet (6.25 mg total) by mouth once daily at bedtime. levothyroxine 200 MCG tablet Commonly known as: SYNTHROID, LEVOTHROID Start taking on: April 24, 2024 What changed: medication strength how much to take Take 1 tablet (200 mcg total) by mouth in the morning. losartan 100 mg tablet Commonly known as: COZAAR Start taking on: April 24, 2024 What changed: medication strength how much to take when to take this additional instructions Take 1 tablet (100 mg total) by mouth in the morning. CONTINUE taking these medications Instructions Last Dose Given Next Dose Due acetaminophen 500 mg tablet Commonly known as: TYLENOL EXTRA STRENGTH Take 1 tablet (500 mg total) by mouth every 4 (four) hours as needed for pain. atorvastatin 40 mg tablet Commonly known as: LIPITOR Take 2 tablets (80 mg total) by mouth in the morning. bumetanide 0.5 mg tablet Commonly known as: BUMEX Take 1 tablet (0.5 mg total) by mouth daily. cetirizine 10 mg tablet Commonly known as: ZyrTEC Take 1 tablet (10 mg total) by mouth in the morning. DIALYVITE 800 WITH ZINC 15 0.8-15 mg tablet Generic drug: vitamin B [id number] cit Take 1 tablet by mouth every morning. docusate sodium 100 mg capsule Commonly known as: COLACE Take 1 capsule (100 mg total) by mouth in the morning and 1 capsule (100 mg total) before bedtime. ergocalciferol 1,250 mcg (50,000 unit) capsule Commonly known as: DRISDOL Take 1 capsule (50,000 Units total) by mouth in the morning. Give 1 capsule by mouth one time daily starting on the and ending on the every month.. guaiFENesin 600 mg tablet extended release 12hr Commonly known as: MUCINEX Take 1 tablet (600 mg total) by mouth every 12 (twelve) hours as needed (congestion). isosorbide mononitrate 30 mg 24 hr tablet Commonly known as: IMDUR Take 1 tablet (30 mg total) by mouth daily. LANTUS SOLOSTAR U-100 INSULIN 100 unit/mL (3 mL) insulin pen Generic drug: insulin glargine Inject 12 Units under the skin in the morning. MIRALAX 17 gram/dose powder Generic drug: polyethylene glycol Take 17 g by mouth in the morning. SENNA WITH DOCUSATE SODIUM 8.6-50 mg Generic drug: sennosides-docusate sodium Take 1 tablet by mouth in the morning and 1 tablet before bedtime. sertraline 100 mg tablet Commonly known as: ZOLOFT Take 2 tablets (200 mg total) by mouth in the morning. sevelamer 800 mg tablet Commonly known as: RENVELA Take 1 tablet (800 mg total) by mouth in the morning and 1 tablet (800 mg total) in the evening. Take with meals. STOP taking these medications albuterol 90 mcg/actuation inhaler Commonly known as: PROVENTIL HFA;VENTOLIN HFA midodrine 5 mg tablet Commonly known as: PROAMATINE Where to Get Your Medications These medications were sent to [facility] [place]HALIL [place] - [id number] [id number] [address], [place] [id number] aspirin 81 mg carvediloL 6.25 mg tablet levothyroxine 200 MCG tablet losartan 100 mg tablet DISCHARGE INSTRUCTION Discharge disposition: SNF Condition:Stable Activity: activity as tolerated Diet: Adult diet Regular Texture; Consistent Carb 210 grams (1800 kcal); Cardiac Follow up: NO PCP, NO PCP within 7-14 days. No future appointments. Labs/Imaging/Pathology: Thyroid panel in 3 months For most accurate medication list, please review the discharge medication summary. >30 minutes were spent on discharging this patient. IRINA Avilez, 04/23/2024 3:[address] [facility] 7AM-7PM (all facilities): EpicAmirat or page through [employer]. 7PM-7AM ([facility], [facility]): EpicChat or page, [phone]. 7PM-7AM ([place], [place], [place], [place] and [facility] Rehab): EpicChat or page through [employer]. This note was completed using a voice stud master/mistress system. Every effort is made to ensure accuracy, however inadvertent errors may occur. IRIAN Avilez 04/23/24 1511 Physician Attestation I, Dona Kincaid MD, personally performed a face to face diagnostic evaluation on this patient. I have reviewed the note authored by the advance practice provider including history, review of systems,physical examination,medical decision making and agree with the assessment and plan as written. I have seen and evaluated the patient, I have repeated the flores portions of the physical exam and concur with the KYLE findings. I have reviewed all laboratory findings and imaging reports/films. I agree with the plan as noted. documented in this encounter [facility] 04-23-2024 Plan of care note Problem: Pain Goal: Patient goal is pain score less than 4, able to rest, and participant in treatment plan as appropriate Description: INTERVENTIONS: 1. Encourage patient or legal u.s. representative to report early pain and ask for pain medicine when needed 2. Assess pain using appropriate pain scale and include the scale used when documenting 3. Administer analgesics based on type and severity of pain and evaluate response within appropriate time frame 4. Implement non-pharmacological measures as appropriate and evaluate response 5. Consider cultural and social influences on pain and pain management 6. Notify LIP if interventions ineffective or patient reports new pain 7. Monitor vital signs including pulse ox, end-tidal CO2 based on pain intervention 8. Reassess pain per policy 9. Teach patient or legal u.s. representative interventions for comforting Outcome: Progressing Note: Evaluation of progress towards goal: denies any pain at this time Problem: Safety Goal: Patient will be injury free during hospitalization Description: INTERVENTIONS: 1. Assess patient's risk for falls and implement fall prevention plan of care per policy 2. Provide and maintain a safe environment 3. Proper use of double Identifiers 4. Medication administration using the 5 rights 5. Hand hygiene 6. Specimens are labeled at the bedside 7. Instruct patient/ patient u.s. representative about use of safety devices 8. Include patient/ patient u.s. representative in decisions related to safety Outcome: Progressing Note: Evaluation of progress towards goal: safety maintained; no injuries reported Problem: Infection Goal: Absence of infection during hospitalization Description: INTERVENTIONS 1. Assess and monitor for signs and symptoms of infection. 2. Monitor lab/diagnostic results. 3. Monitor all insertion sites i.e., indwelling lines, tubes and drains. 4. Monitor endotracheal (as able) and nasal secretions for changes in amount and color. 5. Administer medications as ordered. 6. Instruct and encourage patient and family to use good hand hygiene technique. 7. Identify and instruct patient/patient u.s. representative in use of appropriate isolation precautions for identified infection/symptoms. 8. Provide and discuss with patient/patient u.s. representative on educational MDRO sheet. 9. Encourage and monitor nutritional status daily and consult computer network support specialist if indicated. 10. Implement neutropenic guidelines as needed. Outcome: Progressing Note: Evaluation of progress towards goal: good hand hygiene utilized Problem: Knowledge Deficit Goal: Patient/patient u.s. representative demonstrates understanding of disease process, treatment plan, medications, and discharge instructions Description: INTERVENTIONS 1. Complete learning assessment and assess knowledge base 2. Provide teaching at level of understanding 3. Provide teaching via preferred learning method(s) Outcome: Progressing Note: Evaluation of progress towards goal: all questions answered throughout shift Problem: Urinary Incontinence Goal: Perineal skin integrity is maintained or improved Description: INTERVENTIONS 1. Assess genitourinary system, perineal skin, labs (urinalysis), and history of incontinence to include past management, aggravating, and alleviating factors 2. Keep skin clean and dry 3. Apply skin protectant 4. Develop skin care regimen 5. Provide privacy when changing patients incontinence device to maintain their dignity 6. Consider placing an indwelling catheter 7. Collaborate with interdisciplinary team and initiate plans and interventions as needed Outcome: Progressing Note: Evaluation of progress towards goal: primafit in place; skin clean and dry Problem: Moderate - High Risk Fall Score Description: Mejia Fall Score of =/> 25 or indicated by [facility] Assessment Goal: Patient should be free from fall Description: Interventions: 1. [place] to environment 2. Hourly rounds addressing the 4 P's (Pain, Positioning, Possessions, Potty) 3. Clear area of hazards (spills, clutter, electrical cords, unnecessary equipment) 4. Place equipment (bed & TV controls, call light, phone, urinal) within reach 5. Encourage patient to wear glasses and hearing aides as appropriate 6. Maintain bed in lowest position 7. Lock wheels on bed/wheelchair 8. Provide adequate lighting, including night light 9. Assess need for additional bedding, food/fluids, pain med's prior to sleep/routinely 10. Provide gripper slippers or personal non-skid footwear 11. Teach patient and patient u.s. representative to maintain environment for safety and engage in all aspects of fall prevention program 12. Remind patient to call for help before getting out of bed 13. Initiate bed/chair/exit alarms supportive devices as appropriate, (chair wedge, no-skid floor mat, raised edge mattress, hip protectors) 14. Locate patient bed assignment for optimal visualization 15. Evaluate and identify Safe Patient Handling Equipment needs 16. Provide supervision when out of bed or chair 17. Utilize gait belt as needed to assist with ambulation 18. Place adaptive equipment (cane, walker) within reach 19. Request patient u.s. representative bring adaptive equipment/mobility aids from home or obtain and provide as needed 20. Consult pharmacy regarding effects of med's affecting mobility, cognition, and alternatives 21. Obtain physician order for PT if risk factors associated with mobility are present 22. Obtain physician order for OT as appropriate 23. Utilize diversional activities 24. Educate patient and patient u.s. representative how to maintain a safe environment during visitation times (notify nurse prior to leaving bedside) 25. Consider appropriateness of medical or non-medical pathologist 26. Set up voiding schedule as appropriate (every 2 hours) Outcome: Progressing Note: Evaluation of progress towards goal: side rails up x2; bed locked; call light within reach [facility] 04-22-2024 Procedure note Associated Ord er(s): HEMODIALYSIS / ULTRAFILTRATION - TABLO 3.5hr dialysis treatment completed. Tolerated well. System clotted x1 w/ 1hr remaining. Would benefit from some heparin during tx. No meds w/ tx. AVF working fair, max BFR 350-380. Higher venous pressures & audible whirring sound at proximal fistula Post wt: 100.7kg Fluid removed: 2.3kg per bedscale, 2L per machine Post BP:174/58 Report off to primary RN Yomaira [facility] 04-22-2024 Procedure note Associated Ord er(s): HEMODIALYSIS / ULTRAFILTRATION - TABLO 3.5hr dialysis treatment completed. Tolerated well. System clotted x1 w/ 1hr remaining. Would benefit from some heparin during tx. No meds w/ tx. AVF working fair, max BFR 350-380. Higher venous pressures & audible whirring sound at proximal fistula Post wt: 100.7kg Fluid removed: 2.3kg per bedscale, 2L per machine Post BP:174/58 Report off to primary RN Yomaira documented in this encounter [facility] 04-22-2024 Plan of care note Problem: Pain Goal: Patient goal is pain score less than 4, able to rest, and participant in treatment plan as appropriate Description: INTERVENTIONS: 1. Encourage patient or legal u.s. representative to report early pain and ask for pain medicine when needed 2. Assess pain using appropriate pain scale and include the scale used when documenting 3. Administer analgesics based on type and severity of pain and evaluate response within appropriate time frame 4. Implement non-pharmacological measures as appropriate and evaluate response 5. Consider cultural and social influences on pain and pain management 6. Notify LIP if interventions ineffective or patient reports new pain 7. Monitor vital signs including pulse ox, end-tidal CO2 based on pain intervention 8. Reassess pain per policy 9. Teach patient or legal u.s. representative interventions for comforting Outcome: Progressing Note: Evaluation of progress towards goal: Pt able to report pain according to 0/10 pain scale. Medicating patient for pain per orders. Continue to monitor. Problem: Safety Goal: Patient will be injury free during hospitalization Description: INTERVENTIONS: 1. Assess patient's risk for falls and implement fall prevention plan of care per policy 2. Provide and maintain a safe environment 3. Proper use of double Identifiers 4. Medication administration using the 5 rights 5. Hand hygiene 6. Specimens are labeled at the bedside 7. Instruct patient/ patient u.s. representative about use of safety devices 8. Include patient/ patient u.s. representative in decisions related to safety Outcome: Progressing Note: Evaluation of progress towards goal: Safety measures initiated/maintained. Pt remains safe from harm/injury/falls. Continue to monitor. Problem: Infection Goal: Absence of infection during hospitalization Description: INTERVENTIONS 1. Assess and monitor for signs and symptoms of infection. 2. Monitor lab/diagnostic results. 3. Monitor all insertion sites i.e., indwelling lines, tubes and drains. 4. Monitor endotracheal (as able) and nasal secretions for changes in amount and color. 5. Administer medications as ordered. 6. Instruct and encourage patient and family to use good hand hygiene technique. 7. Identify and instruct patient/patient u.s. representative in use of appropriate isolation precautions for identified infection/symptoms. 8. Provide and discuss with patient/patient u.s. representative on educational MDRO sheet. 9. Encourage and monitor nutritional status daily and consult computer network support specialist if indicated. 10. Implement neutropenic guidelines as needed. Outcome: Progressing Note: Evaluation of progress towards goal: Patient VS WNL, remains afebrile for shift. Continue to monitor. Problem: Knowledge Deficit Goal: Patient/patient u.s. representative demonstrates understanding of disease process, treatment plan, medications, and discharge instructions Description: INTERVENTIONS 1. Complete learning assessment and assess knowledge base 2. Provide teaching at level of understanding 3. Provide teaching via preferred learning method(s) Outcome: Progressing Note: Evaluation of progress towards goal: POC discussed with patient. Questions answered PRN. Problem: Discharge Planning Goal: Discharge to post-acute care, other facility, or home with appropriate resources Description: Patient's goal is: INTERVENTIONS 1. Conduct assessment to determine patient/family and health care team treatment goals, and need for post-acute services based on payer coverage, community resources, and patient preferences, and barriers to discharge 2. Coordinate with Social work, Care Navigation, and Utilization Review to arrange appropriate level of services according to patient's needs based on patient preference and payer coverage in collaboration with the physician and health care team 3. Address psychosocial, clinical, and financial barriers to discharge as identified in assessment in conjunction with the patient/family and health care team 4. Consult appropriate ancillary services (i.e.. PT/OT/ST, etc) as needed 5. Communicate with and update the patient/family, physician, and health care team regarding progress on the discharge plan 6. Identify discharge learning needs (meds, wound care, etc). 7. Arrange for needed discharge transportation as appropriate Outcome: Progressing Note: Evaluation of progress towards goal: Continue to assess for when appropriate. Problem: Glucose Imbalance Goal: Clinical indication of glucose balance is achieved Description: Patient's goal is: INTERVENTIONS 1. Monitor blood glucose levels as ordered 2. Administer medications as ordered 3. Notify physician of ineffective treatment plan Outcome: Progressing Note: Evaluation of progress towards goal: Continue to assess for when appropriate. Goal: Patient's discharge needs are met Description: Patient's goal is: INTERVENTIONS 1. Assess patient for self-management skills 2. Encourage participation in diabetes management 3. Identify potential discharge barriers on admission and throughout hospital stay 4. Involve patient/S.O. in discharge planning process 5. Communicate referral to family life educator as appropriate 6. Communicate referral to computer network support specialist as appropriate 7. Collaborate with case management/social secretary for discharge needs Outcome: Progressing Note: Evaluation of progress towards goal: Continue to assess for when appropriate. Problem: Potential for Compromised Skin Integrity Goal: Skin integrity is maintained or improved Description: Patient's goal is: INTERVENTIONS 1. Perform initial skin assessment on admission and as needed 2. Turn patient every 2 hours and PRN 3. Relieve pressure to bony prominences 4. Avoid shearing 5. Keep skin clean and dry 6. Alternate a full bath with partial baths for elderly 7. Apply lotion/moisturizer on skin 8. Monitor patient's hygiene practices 9. Float heels 10. Collaborate with interdisciplinary team and initiate plans and interventions as needed Outcome: Progressing Note: Evaluation of progress towards goal: Continue to assess for when appropriate. Goal: Patient's nutritional intake is adequate Description: Patient's goal is: INTERVENTIONS 1. Assess and monitor food intake and supplements, patient food preferences, nausea, vomiting, labs, oral cavity (gums, teeth, tongue, mucosa), proper denture fit, and cultural beliefs 2. Monitor for signs of hypoglycemia and hyperglycemia 3. Collaborate with interdisciplinary team and initiate plan and interventions as ordered 4. Monitor patient's weight 5. Assist patient with meals/food selection 6. Assist patient with eating 7. Allow adequate time for meals 8. Provide pleasant environment during mealtime 9. Increase social contact during mealtimes 10. Plan activities to conserve energy 11. Encourage/perform oral hygiene as appropriate 12. Encourage patient to take dietary supplement as ordered 13. Collaborate with clinical computer network support specialist 14. Include patient/ patient's u.s. representative in decisions related to nutrition Outcome: Progressing Note: Evaluation of progress towards goal: Continue to assess for when appropriate. Problem: Urinary Incontinence Goal: Perineal skin integrity is maintained or improved Description: INTERVENTIONS 1. Assess genitourinary system, perineal skin, labs (urinalysis), and history of incontinence to include past management, aggravating, and alleviating factors 2. Keep skin clean and dry 3. Apply skin protectant 4. Develop skin care regimen 5. Provide privacy when changing patients incontinence device to maintain their dignity 6. Consider placing an indwelling catheter 7. Collaborate with interdisciplinary team and initiate plans and interventions as needed Outcome: Progressing Note: Evaluation of progress towards goal: Continue to assess for when appropriate. Problem: Moderate - High Risk Fall Score Description: Mejia Fall Score of =/> 25 or indicated by [facility] Assessment Goal: Patient should be free from fall Description: Interventions: 1. [place] to environment 2. Hourly rounds addressing the 4 P's (Pain, Positioning, Possessions, Potty) 3. Clear area of hazards (spills, clutter, electrical cords, unnecessary equipment) 4. Place equipment (bed & TV controls, call light, phone, urinal) within reach 5. Encourage patient to wear glasses and hearing aides as appropriate 6. Maintain bed in lowest position 7. Lock wheels on bed/wheelchair 8. Provide adequate lighting, including night light 9. Assess need for additional bedding, food/fluids, pain med's prior to sleep/routinely 10. Provide gripper slippers or personal non-skid footwear 11. Teach patient and patient u.s. representative to maintain environment for safety and engage in all aspects of fall prevention program 12. Remind patient to call for help before getting out of bed 13. Initiate bed/chair/exit alarms supportive devices as appropriate, (chair wedge, no-skid floor mat, raised edge mattress, hip protectors) 14. Locate patient bed assignment for optimal visualization 15. Evaluate and identify Safe Patient Handling Equipment needs 16. Provide supervision when out of bed or chair 17. Utilize gait belt as needed to assist with ambulation 18. Place adaptive equipment (cane, walker) within reach 19. Request patient u.s. representative bring adaptive equipment/mobility aids from home or obtain and provide as needed 20. Consult pharmacy regarding effects of med's affecting mobility, cognition, and alternatives 21. Obtain physician order for PT if risk factors associated with mobility are present 22. Obtain physician order for OT as appropriate 23. Utilize diversional activities 24. Educate patient and patient u.s. representative how to maintain a safe environment during visitation times (notify nurse prior to leaving bedside) 25. Consider appropriateness of medical or non-medical pathologist 26. Set up voiding schedule as appropriate (every 2 hours) Outcome: Progressing Note: Evaluation of progress towards goal: Pt remains free from falls and injury Problem: Multi-Drug Resistant Organism / Rule-Out Infection Prevention Goal: Prevent transmission of infection Description: INTERVENTIONS 1. Place patient in private room or in room with patient with same disease 2. Discard single-use items 3. Clean reusable equipment between patients 4. Wear gloves for direct and indirect contact with patient or contaminants 5. Change gloves between tasks and procedures 6. Wash hands before and after caring for each patient 7. Wear appropriate personal protective equipment in relation to the indicated isolation type 8. Place appropriate isolation signage on patient's door 9. Provide patient/ patient u.s. representative with isolation education. Outcome: Progressing Note: Evaluation of progress towards goal: Continue to assess for when appropriate. [facility] 04-22-2024 Plan of care note 1. No flow related signal of the visualized left vertebral artery, suggestive of chronic occlusion. 2. Decreased flow related signal of posterior cerebral arteries and right middle cerebral artery proximally with more robust signal distally, possibly u.s. representative of a combination of artifact and intracranial atherosclerosis, though without definite evidence of high-grade stenosis. Continued attention on follow-up contrast enhanced imaging, as clinically warranted. 3. Otherwise no large vessel occlusion, high-grade stenosis, or aneurysm of the remainder of the [place] circulation. Finalized by Denton Redd MD on 04/21/2024 4:36 PM Exam Ended: 04/21/24 15:51 EST Last Resulted: 04/21/24 16:36 EST [The MR examination is markedly limited by motion artifact. The carotid and right vertebral arteries have flow signal and are likely patent. Stenosis cannot be excluded]. However, there is no obvious signal on this very limited examination in the left vertebral artery, suggestive of either hypoplasia or occlusion.. Finalized by Garett Love MD on 04/21/2024 4:50 PM Exam Ended: 04/21/24 16:03 EST Last Resulted: 04/21/24 16:50 EST 1. Abnormal left vertebral artery [slow flow versus occlusion], recommend correlation with vascular imaging. 2. No acute ischemia 3. Moderate global parenchymal volume loss. Mild/moderate burden white matter FLAIR hyperintensities, most often seen in the setting of chronic microvascular ischemia. 4. Symmetric left mastoid fluid, correlate for clinical signs of mastoiditis. THIS REPORT CONTAINS A SIGNIFICANT RESULT AND/OR RECOMMENDATION, WHICH REQUIRES THE ATTENTION OF THE LICENSED CAREGIVER RESPONSIBLE FOR THIS PATIENT. THEREFORE, I SPECIFICALLY DESIGNATED THIS REPORT TO BE TELEPHONED BY THE RADIOLOGY DEPARTMENT. FINDINGS WERE INSTRUCTED TO BE CALLED TO THE CLINICAL SERVICE ON 04/21/2024 1:31 PM Finalized by Jose Alfredo Ordonez MD on 04/21/2024 1:31 PM Clinical note: Following yesterday's MRI observations of possible poor flow vertebrobasilar system, MRA brain and cervical carotid circulation Were ordered. 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 MRA of the neck and brain both support collateral circulation. No intervention is recommended at this time. Patient has elevated stroke risk. She is bedridden in the care home per her own description to me. If heparin subcutaneously can continue, this would be reasonable choice otherwise placing her on aspirin 81 mg a day could be considered. Following as needed. Patient has elevated stroke risk. [facility] 04-21-2024 Plan of care note Problem: Pain Goal: Patient goal is pain score less than 4, able to rest, and participant in treatment plan as appropriate Description: INTERVENTIONS: 1. Encourage patient or legal u.s. representative to report early pain and ask for pain medicine when needed 2. Assess pain using appropriate pain scale and include the scale used when documenting 3. Administer analgesics based on type and severity of pain and evaluate response within appropriate time frame 4. Implement non-pharmacological measures as appropriate and evaluate response 5. Consider cultural and social influences on pain and pain management 6. Notify LIP if interventions ineffective or patient reports new pain 7. Monitor vital signs including pulse ox, end-tidal CO2 based on pain intervention 8. Reassess pain per policy 9. Teach patient or legal u.s. representative interventions for comforting Outcome: Progressing Note: Evaluation of progress towards goal: pt able to report pain on a scale of 0-10, medication given per MAR Problem: Safety Goal: Patient will be injury free during hospitalization Description: INTERVENTIONS: 1. Assess patient's risk for falls and implement fall prevention plan of care per policy 2. Provide and maintain a safe environment 3. Proper use of double Identifiers 4. Medication administration using the 5 rights 5. Hand hygiene 6. Specimens are labeled at the bedside 7. Instruct patient/ patient u.s. representative about use of safety devices 8. Include patient/ patient u.s. representative in decisions related to safety Outcome: Progressing Note: Evaluation of progress towards goal: Pt remains free from falls and safety maintained. Nonskid footwear applied. Call light, bedside table, and personal belongings within reach. Pt educated on fall risk/ prevention. Encouraged pt to call out for assistance as needed. Will continue to monitor. Problem: Glucose Imbalance Goal: Clinical indication of glucose balance is achieved Description: Patient's goal is: INTERVENTIONS 1. Monitor blood glucose levels as ordered 2. Administer medications as ordered 3. Notify physician of ineffective treatment plan Outcome: Progressing Note: Evaluation of progress towards goal: monitoring blood sugar achs, sliding scale insulin ordered for coverage Problem: Moderate - High Risk Fall Score Description: Mejia Fall Score of =/> 25 or indicated by [facility] Assessment Goal: Patient should be free from fall Description: Interventions: 1. [place] to environment 2. Hourly rounds addressing the 4 P's (Pain, Positioning, Possessions, Potty) 3. Clear area of hazards (spills, clutter, electrical cords, unnecessary equipment) 4. Place equipment (bed & TV controls, call light, phone, urinal) within reach 5. Encourage patient to wear glasses and hearing aides as appropriate 6. Maintain bed in lowest position 7. Lock wheels on bed/wheelchair 8. Provide adequate lighting, including night light 9. Assess need for additional bedding, food/fluids, pain med's prior to sleep/routinely 10. Provide gripper slippers or personal non-skid footwear 11. Teach patient and patient u.s. representative to maintain environment for safety and engage in all aspects of fall prevention program 12. Remind patient to call for help before getting out of bed 13. Initiate bed/chair/exit alarms supportive devices as appropriate, (chair wedge, no-skid floor mat, raised edge mattress, hip protectors) 14. Locate patient bed assignment for optimal visualization 15. Evaluate and identify Safe Patient Handling Equipment needs 16. Provide supervision when out of bed or chair 17. Utilize gait belt as needed to assist with ambulation 18. Place adaptive equipment (cane, walker) within reach 19. Request patient u.s. representative bring adaptive equipment/mobility aids from home or obtain and provide as needed 20. Consult pharmacy regarding effects of med's affecting mobility, cognition, and alternatives 21. Obtain physician order for PT if risk factors associated with mobility are present 22. Obtain physician order for OT as appropriate 23. Utilize diversional activities 24. Educate patient and patient u.s. representative how to maintain a safe environment during visitation times (notify nurse prior to leaving bedside) 25. Consider appropriateness of medical or non-medical pathologist 26. Set up voiding schedule as appropriate (every 2 hours) Outcome: Progressing Note: Evaluation of progress towards goal: Pt remains free from falls and safety maintained. Will continue to monitor. [facility] 04-21-2024 Progress note Formatting of t his note might be different from the original. DISCHARGE PLANNING NOTE Referral sent to. [facility] ([facility]) (P# ; F# ) Referral sent to. [facility] (P# [phone] ; F# [phone]) [facility] 04-21-2024 Progress note Formatting of t his note is different from the original. 04/21/24 [id number] Services Requested Patient expects to be discharged to: ECF Discharge Disposition SNF SNF Name [facility] SNF Does the patient need discharge transportation arranged? Yes Transportation Arranged Ambulance Patient choice offered Yes List Provided Patient declined Patient Declined Active with Provider Initial DC Assessment Completed Yes DC Planning Complete Discharge Milestones Yes DISCHARGE PLANNING NOTE Pt was discussed in Transition Rounds. Chart reviewed. Pt was admitted under Observation status for Syncope. Therapy was ordered and ECF was recommended. DAVIN spoke to pt who said she will return to [facility]. Pt uses a wheelchair at the facility. DAVIN spoke to Alejandra from the facility. Pt can return at discharge. Pt has Dialysis at [facility]. DAVIN will continue to follow patient. [facility] 04-21-[address] Nurse Note [address] with Dr Antunez regarding MRI results. See new orders. [facility] 04-21-[address] Nurse Note [address] with Dr Antunez regarding MRI results. See new orders. documented in this encounter [facility] 04-21-2024 Miscellaneous Notes Contract: [id number] Krishna Burnette re significant result, MRI Numeric page sent documented in this encounter [facility] 04-21-2024 Telephone encounter Note Contract: [id number] Krishna Burnette re significant result, MRI [facility] 04-21-2024 Telephone encounter Note Numeric page sent [facility] 04-21-2024 Plan of care note Problem: Pain Goal: Patient goal is pain score less than 4, able to rest, and participant in treatment plan as appropriate Description: INTERVENTIONS: 1. Encourage patient or legal u.s. representative to report early pain and ask for pain medicine when needed 2. Assess pain using appropriate pain scale and include the scale used when documenting 3. Administer analgesics based on type and severity of pain and evaluate response within appropriate time frame 4. Implement non-pharmacological measures as appropriate and evaluate response 5. Consider cultural and social influences on pain and pain management 6. Notify LIP if interventions ineffective or patient reports new pain 7. Monitor vital signs including pulse ox, end-tidal CO2 based on pain intervention 8. Reassess pain per policy 9. Teach patient or legal u.s. representative interventions for comforting Outcome: Progressing Note: Evaluation of progress towards goal: Pt able to report pain according to 0/10 pain scale. Medicating patient for pain per orders. Continue to monitor. Problem: Safety Goal: Patient will be injury free during hospitalization Description: INTERVENTIONS: 1. Assess patient's risk for falls and implement fall prevention plan of care per policy 2. Provide and maintain a safe environment 3. Proper use of double Identifiers 4. Medication administration using the 5 rights 5. Hand hygiene 6. Specimens are labeled at the bedside 7. Instruct patient/ patient u.s. representative about use of safety devices 8. Include patient/ patient u.s. representative in decisions related to safety Outcome: Progressing Note: Evaluation of progress towards goal: Safety measures initiated/maintained. Pt remains safe from harm/injury/falls. Continue to monitor. Problem: Infection Goal: Absence of infection during hospitalization Description: INTERVENTIONS 1. Assess and monitor for signs and symptoms of infection. 2. Monitor lab/diagnostic results. 3. Monitor all insertion sites i.e., indwelling lines, tubes and drains. 4. Monitor endotracheal (as able) and nasal secretions for changes in amount and color. 5. Administer medications as ordered. 6. Instruct and encourage patient and family to use good hand hygiene technique. 7. Identify and instruct patient/patient u.s. representative in use of appropriate isolation precautions for identified infection/symptoms. 8. Provide and discuss with patient/patient u.s. representative on educational MDRO sheet. 9. Encourage and monitor nutritional status daily and consult computer network support specialist if indicated. 10. Implement neutropenic guidelines as needed. Outcome: Progressing Note: Evaluation of progress towards goal: Patient VS WNL, remains afebrile for shift. Continue to monitor. Problem: Knowledge Deficit Goal: Patient/patient u.s. representative demonstrates understanding of disease process, treatment plan, medications, and discharge instructions Description: INTERVENTIONS 1. Complete learning assessment and assess knowledge base 2. Provide teaching at level of understanding 3. Provide teaching via preferred learning method(s) Outcome: Progressing Note: Evaluation of progress towards goal: POC discussed with patient. Questions answered PRN. Problem: Discharge Planning Goal: Discharge to post-acute care, other facility, or home with appropriate resources Description: Patient's goal is: INTERVENTIONS 1. Conduct assessment to determine patient/family and health care team treatment goals, and need for post-acute services based on payer coverage, community resources, and patient preferences, and barriers to discharge 2. Coordinate with Social work, Care Navigation, and Utilization Review to arrange appropriate level of services according to patient's needs based on patient preference and payer coverage in collaboration with the physician and health care team 3. Address psychosocial, clinical, and financial barriers to discharge as identified in assessment in conjunction with the patient/family and health care team 4. Consult appropriate ancillary services (i.e.. PT/OT/ST, etc) as needed 5. Communicate with and update the patient/family, physician, and health care team regarding progress on the discharge plan 6. Identify discharge learning needs (meds, wound care, etc). 7. Arrange for needed discharge transportation as appropriate Outcome: Progressing Note: Evaluation of progress towards goal: Continue to assess for when appropriate. Problem: Glucose Imbalance Goal: Clinical indication of glucose balance is achieved Description: Patient's goal is: INTERVENTIONS 1. Monitor blood glucose levels as ordered 2. Administer medications as ordered 3. Notify physician of ineffective treatment plan Outcome: Progressing Note: Evaluation of progress towards goal: Continue to assess for when appropriate. Goal: Patient's discharge needs are met Description: Patient's goal is: INTERVENTIONS 1. Assess patient for self-management skills 2. Encourage participation in diabetes management 3. Identify potential discharge barriers on admission and throughout hospital stay 4. Involve patient/S.O. in discharge planning process 5. Communicate referral to family life educator as appropriate 6. Communicate referral to computer network support specialist as appropriate 7. Collaborate with case management/social secretary for discharge needs Outcome: Progressing Note: Evaluation of progress towards goal: Continue to assess for when appropriate. Problem: Potential for Compromised Skin Integrity Goal: Skin integrity is maintained or improved Description: Patient's goal is: INTERVENTIONS 1. Perform initial skin assessment on admission and as needed 2. Turn patient every 2 hours and PRN 3. Relieve pressure to bony prominences 4. Avoid shearing 5. Keep skin clean and dry 6. Alternate a full bath with partial baths for elderly 7. Apply lotion/moisturizer on skin 8. Monitor patient's hygiene practices 9. Float heels 10. Collaborate with interdisciplinary team and initiate plans and interventions as needed Outcome: Progressing Note: Evaluation of progress towards goal: Continue to assess for when appropriate. Goal: Patient's nutritional intake is adequate Description: Patient's goal is: INTERVENTIONS 1. Assess and monitor food intake and supplements, patient food preferences, nausea, vomiting, labs, oral cavity (gums, teeth, tongue, mucosa), proper denture fit, and cultural beliefs 2. Monitor for signs of hypoglycemia and hyperglycemia 3. Collaborate with interdisciplinary team and initiate plan and interventions as ordered 4. Monitor patient's weight 5. Assist patient with meals/food selection 6. Assist patient with eating 7. Allow adequate time for meals 8. Provide pleasant environment during mealtime 9. Increase social contact during mealtimes 10. Plan activities to conserve energy 11. Encourage/perform oral hygiene as appropriate 12. Encourage patient to take dietary supplement as ordered 13. Collaborate with clinical computer network support specialist 14. Include patient/ patient's u.s. representative in decisions related to nutrition Outcome: Progressing Note: Evaluation of progress towards goal: Continue to assess for when appropriate. Problem: Urinary Incontinence Goal: Perineal skin integrity is maintained or improved Description: INTERVENTIONS 1. Assess genitourinary system, perineal skin, labs (urinalysis), and history of incontinence to include past management, aggravating, and alleviating factors 2. Keep skin clean and dry 3. Apply skin protectant 4. Develop skin care regimen 5. Provide privacy when changing patients incontinence device to maintain their dignity 6. Consider placing an indwelling catheter 7. Collaborate with interdisciplinary team and initiate plans and interventions as needed Outcome: Progressing Note: Evaluation of progress towards goal: Continue to assess for when appropriate. Problem: Moderate - High Risk Fall Score Description: Mejia Fall Score of =/> 25 or indicated by [facility] Assessment Goal: Patient should be free from fall Description: Interventions: 1. [place] to environment 2. Hourly rounds addressing the 4 P's (Pain, Positioning, Possessions, Potty) 3. Clear area of hazards (spills, clutter, electrical cords, unnecessary equipment) 4. Place equipment (bed & TV controls, call light, phone, urinal) within reach 5. Encourage patient to wear glasses and hearing aides as appropriate 6. Maintain bed in lowest position 7. Lock wheels on bed/wheelchair 8. Provide adequate lighting, including night light 9. Assess need for additional bedding, food/fluids, pain med's prior to sleep/routinely 10. Provide gripper slippers or personal non-skid footwear 11. Teach patient and patient u.s. representative to maintain environment for safety and engage in all aspects of fall prevention program 12. Remind patient to call for help before getting out of bed 13. Initiate bed/chair/exit alarms supportive devices as appropriate, (chair wedge, no-skid floor mat, raised edge mattress, hip protectors) 14. Locate patient bed assignment for optimal visualization 15. Evaluate and identify Safe Patient Handling Equipment needs 16. Provide supervision when out of bed or chair 17. Utilize gait belt as needed to assist with ambulation 18. Place adaptive equipment (cane, walker) within reach 19. Request patient u.s. representative bring adaptive equipment/mobility aids from home or obtain and provide as needed 20. Consult pharmacy regarding effects of med's affecting mobility, cognition, and alternatives 21. Obtain physician order for PT if risk factors associated with mobility are present 22. Obtain physician order for OT as appropriate 23. Utilize diversional activities 24. Educate patient and patient u.s. representative how to maintain a safe environment during visitation times (notify nurse prior to leaving bedside) 25. Consider appropriateness of medical or non-medical pathologist 26. Set up voiding schedule as appropriate (every 2 hours) Outcome: Progressing Note: Evaluation of progress towards goal: Pt remains free from falls and injury Problem: Multi-Drug Resistant Organism / Rule-Out Infection Prevention Goal: Prevent transmission of infection Description: INTERVENTIONS 1. Place patient in private room or in room with patient with same disease 2. Discard single-use items 3. Clean reusable equipment between patients 4. Wear gloves for direct and indirect contact with patient or contaminants 5. Change gloves between tasks and procedures 6. Wash hands before and after caring for each patient 7. Wear appropriate personal protective equipment in relation to the indicated isolation type 8. Place appropriate isolation signage on patient's door 9. Provide patient/ patient u.s. representative with isolation education. Outcome: Progressing Note: Evaluation of progress towards goal: Continue to assess for when appropriate. [facility] 04-21-2024 Consult note Associated Order (s): IP CONSULT TO NEUROLOGY Neurology Consultation 04/21/2024 Janay Schilling is a 74 y.o. female Presenting complaints: No chief complaint on file. This lady was undergoing dialysis. States that she felt lightheaded and vertiginous describing both aspects of dizziness. Does not recall what happened thereafter but quick recovery. Semiology of event not described. No convulsive activity reported. While at [facility] nurses tell me that she feels her usual self. Longstanding extensive list of medical problems. Metabolic panel on admission unremarkable. CT brain unremarkable. Await MRI brain report. Heavyset elderly lady edentulous lying in bed states she can not walk uses a wheelchair extraocular movements are full orientation x2 symmetric face tongue palate uvula midline. Additional cranial nerve functions normal no nystagmus. Motor examination reveals 5-strength all limbs. Trace reflexes. Cerebellar testing while lying in bed unremarkable Assessment: Syncope during dialysis probably hemodynamic/metabolic toxic/cardiovascular event. Unlikely seizures based on absence of seizures in past history and no reported convulsive activity. Not much to add at this time other than arranging a carotid scan given stroke risk. This can be followed as an outpatient by primary service. Please call as needed thank you. Problem List: Patient Active Problem List Diagnosis Heart failure with preserved left ventricular function (HFpEF) ([facility] [place] [place]) Class 3 severe obesity due to excess calories in adult ([facility] [place] [place]) Essential hypertension Hypoglycemia COVID-19 Hypothyroidism Acute kidney injury superimposed on CKD ([facility] [place] [place]) Stage 3b chronic kidney disease ([facility] [place] [place] Anemia of chronic disease Diabetes type 2, controlled ([facility] [place] [place]) Anemia ESRD (end stage renal disease) on dialysis ([facility] [place] [place]) Episode of syncope History of Present Illness: Janay Schilling is a 74 y.o. 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 She is a resident of [facility]. She has had previous episodes of presyncope. Blood pressure at presentation was 155/89 mmHg with temperature 97.9 F and oxygen saturation 99% on room air. Today she feels better and denies headache or dizziness during this encounter. Latest Reference Range & Units 04/20/24 14:25 Sodium 134 - 146 mmol/L 133 (L) Potassium 3.5 - 5.0 mmol/L 3.6 Chloride 98 - 109 mmol/L 95 (L) CO2 22 - 32 mmol/L 27 Glucose 65 - 99 mg/dL 183 (H) Creatinine 0.40 - 1.00 mg/dL 3.14 (H) BUN 5 - 27 mg/dL 19 Calcium 8.5 - 10.5 mg/dL 8.6 Total Protein 6.0 - 8.0 g/dL 6.9 Albumin 3.2 - 5.3 g/dL 3.3 Total bilirubin 0.3 - 1.2 mg/dL 0.3 AST 0 - 41 U/L 15 ALT 0 - 31 U/L 18 Alkaline phosphatase 39 - 130 U/L 91 Anion gap 5 - 15 mmol/L 11 eGFR (CKD-EPI)non-race dependent >59 ml/min/1.73sq.m 15 (L) Magnesium 1.8 - 2.6 mg/dL 1.7 (L) (L): Data is abnormally low (H): Data is abnormally high ROS: General: negative Psychological: negative Ophthalmic: negative ENT: negative Allergy and Immunolog : negative Hematological and Lymphatic : negative Endocrine : negative Respiratory : negative Cardiovascular : negative Gastrointestinal : negative Genito-Urinary : negative Musculoskeletal : negative Neurological : negative Dermatological : negative Past Medical History: Past Medical History: Diagnosis Date Anemia, unspecified Cellulitis Cellulitis, unspecified CHF (congestive heart failure) ([facility] [place] [place]) Chronic kidney disease, unspecified Depression Diabetes mellitus type 2, controlled ([facility] [place] [place]) Difficulty walking DM (diabetes mellitus) ([facility] [place] [place]) MALHOTRA (dyspnea on exertion) Heart failure, systolic ([facility] [place] [place]) Hyperlipidemia Hypertension Hypothyroidism Infectious viral hepatitis Muscle weakness (generalized) Obesity Obstructive chronic bronchitis without exacerbation ([facility] [place] [place]) Post-COVID syndrome resolved Stroke ([facility] [place] [place]) Social History: Social History Socioeconomic History Marital status: Single Tobacco Use Smoking status: Former Current packs/day: 0.00 Average packs/day: 1 pack/day for 53.9 years (53.9 ttl pk-yrs) Types: Cigarettes Start date: 1969 Quit date: 04/01/2023 Years since quittin.0 Smokeless tobacco: Never Vaping Use Vaping status: Never Used Substance and Sexual Activity Alcohol use: No Drug use: No Sexual activity: Defer Other Topics Concern Caffeine Use Yes Social Drivers of Health Food Insecurity: No Food Insecurity (04/21/2024) Hunger Screening Food Insecurity - Worry: Never True Food Insecurity - Inability: Never True Transportation Needs: No Transportation Needs (04/21/2024) PRAPARE - Transportation Lack of Transportation (Medical): No Lack of Transportation (Non-Medical): No Interpersonal Safety: Not At Risk (04/21/2024) Humiliation, Afraid, Rape, and Kick questionnaire Fear of Current or Ex-Partner: No Emotionally Abused: No Physically Abused: No Sexually Abused: No Housing Instability: Low Risk (04/21/2024) Housing Instability Housing Instability: No Family History: Family History Problem Relation Age of Onset Heart disease Mother Kidney disease Mother Alzheimer's disease Sister Hypertension Sister Kidney disease Brother Breast cancer Neg Hx Modifying Factors: Allergies: Allergies Allergen Reactions Amoxicillin Doxycycline Current Medications: Current Facility-Administered Medications Medication Dose Route Frequency Provider Last Rate Last Admin acetaminophen (TYLENOL EXTRA STRENGTH) tablet 500 mg 500 mg oral Q6H PRN Darlyn Peng APRN-EUGENIA atorvastatin (LIPITOR) tablet 80 mg 80 mg oral Daily Darlyn Peng APRN-EUGENIA 80 mg at 04/21/24 0903 bumetanide (BUMEX) tablet 0.5 mg 0.5 mg oral Daily Darlyn Peng APRN-EUGENIA 0.5 mg at 04/21/24 0904 carvediloL (COREG) tablet 3.125 mg 3.125 mg oral HS Darlyn Peng APRN-EUGENIA docusate sodium (COLACE) capsule 100 mg 100 mg oral BID Darlyn Peng APRN-EUGENIA 100 mg at 04/21/24 0903 guaiFENesin (MUCINEX) tablet 600 mg 600 mg oral Q12H PRN Darlyn Peng APRN-EUGENIA [START ON 04/22/2024] heparin (porcine) injection 5,000 Units 5,000 Units subcutaneous Q8H [facility] Darlyn Peng APRN-EUGENIA insulin glargine (LANTUS, SEMGLEE) injection pen 12 Units 12 Units subcutaneous Daily Darlyn Peng APRN-EUGENIA 12 Units at 04/21/24 0912 insulin lispro (HumaLOG) injection 2-10 Units 2-10 Units subcutaneous TID with meals IRINA Hilton 4 Units at 04/21/24 1316 insulin lispro (HumaLOG) injection 2-8 Units 2-8 Units subcutaneous Nightly IRINA Hilton isosorbide mononitrate (IMDUR) 24 hr tablet 30 mg 30 mg oral Daily Darlyn Peng APRN-CARRIAGE RIDER 30 mg at 04/21/24 0904 levothyroxine (SYNTHROID, LEVOTHROID) tablet 188 mcg 188 mcg oral Daily Darlyn M Peng, SIMULATION SOFTWARE ENGINEER-CAR[employer]AGE R[employer]ER 188 mcg at 04/21/24 0534 loratadine (CLARITIN) tablet 10 mg 10 mg oral Daily Darlyn M Peng, SIMULATION SOFTWARE ENGINEER-[employer]AGE RIDER 10 mg at 04/21/24 0904 [START ON 04/22/2024] losartan (COZAAR) tablet 100 mg 100 mg oral Daily Tiffanie Orosco MD perflutren lipid microspheres (DEFINITY) dilution injection 1.43 mg/10 mL 2 mL intravenous PRN Haylee Kelly Chaffee, SIMULATION SOFTWARE ENGINEER-[employer] polyethylene glycol (GLYCOLAX) packet 17 g 17 g oral Daily Darlyn M Peng, SIMULATION SOFTWARE ENGINEER-[employer] RIDER 17 g at 04/21/24 0906 prochlorperazine (COMPAZINE) tablet 5 mg 5 mg oral Q6H PRN Darlyn M Peng, SIMULATION SOFTWARE ENGINEER-[employer]ER Or prochlorperazine (COMPAZINE) injection 5 mg 5 mg intravenous Q6H PRN Darlyn M Peng, SIMULATION SOFTWARE ENGINEER-[employer]ER Or prochlorperazine (COMPAZINE) injection 5 mg 5 mg intramuscular Q8H PRN Darlyn M Peng, SIMULATION SOFTWARE ENGINEER-[employer] RIDER sennosides-docusate sodium (SENOKOT-S) 8.6-50 mg 1 tablet 1 tablet oral Q12H PRN Darlyn M Peng, SIMULATION SOFTWARE ENGINEER-[employer] R[employer]ER sevelamer (RENVELA) tablet 800 mg 800 mg oral BID with meals Darlyn M Peng, SIMULATION SOFTWARE ENGINEER-[employer] RIDER 800 mg at 04/21/24 0903 sodium chloride 0.9 % flush 10 mL 10 mL intravenous Once PRN Haylee Kelly Chaffee, SIMULATION SOFTWARE ENGINEER-[employer]ER sodium chloride 0.9 % flush 3 mL 3 mL intravenous PRN Darlyn M Peng, SIMULATION SOFTWARE ENGINEER-[employer]ER sodium chloride 0.9 % flush 3 mL 3 mL intravenous Q12H MARC Darlyn M Peng, SIMULATION SOFTWARE ENGINEER-CAR[employer]AGE RIDER 3 mL at 04/21/24 0900 Vital Signs: BP 152/50 Pulse 63 Temp 36.8 C (98.2 F) (Oral) Resp 18 Ht 162.6 cm (5' 4 ) Wt 101.1 kg (222 lb 14.2 oz) SpO2 99% BMI 38.26 kg/m General Physical Exam: Assessment: Plan: Counseling; Current Labs: Recent Results (from the past 24 hours) CBC auto differential Collection Time: 04/20/24 2:25 PM Result Value Ref Range White Blood Cells 6.7 4.0 - 11.0 X10E9/L RBC count 3.88 3.80 - 5.20 X10E12/L Hemoglobin 11.8 11.7 - 15.5 g/dL Hematocrit 37.6 35 - 47 % MCV 97 80 - 100 fL MCH 30.4 27 - 34 pg MCHC 31.4 (L) 32 - 36 g/dL RDW 21.4 (H) 11.5 - 15.0 % Platelets 145 (L) 150 - 450 X10E9/L MPV 8.6 7 - 12 fL % neutrophils 67.6 % % lymphocytes 21.6 % % monocytes 5.4 % % eosinophils 4.2 % % Basophils 1.2 % Neutrophils Absolute (A) 4.5 1.5 - 6.6 X10E9/L Lymphocytes Absolute 1.4 1.0 - 3.5 X10E9/L Monocytes Absolute 0.4 0 - 0.9 X10E9/L Eosinophils Absolute 0.3 0.0 - 0.4 X10E9/L Basophils Absolute 0.1 0.0 - 0.2 X10E9/L Comprehensive metabolic panel Collection Time: 04/20/24 2:25 PM Result Value Ref Range Sodium 133 (L) 134 - 146 mmol/L Potassium, Bld 3.6 3.5 - 5.0 mmol/L Chloride 95 (L) 98 - 109 mmol/L CO2 27 22 - 32 mmol/L Anion gap 11 5 - 15 mmol/L BUN 19 5 - 27 mg/dL Creatinine 3.14 (H) 0.40 - 1.00 mg/dL Glucose 183 (H) 65 - 99 mg/dL Calcium 8.6 8.5 - 10.5 mg/dL Total Protein 6.9 6.0 - 8.0 g/dL Albumin 3.3 3.2 - 5.3 g/dL Alkaline Phosphatase 91 39 - 130 U/L AST 15 0 - 41 U/L ALT 18 0 - 31 U/L Total bilirubin 0.3 0.3 - 1.2 mg/dL eGFR (CKD-EPI)non-race dependent 15 (L) >59 ml/min/1.73sq.m C-reactive protein Collection Time: 04/20/24 2:25 PM Result Value Ref Range CRP <0.5 0.000 - 0.744 mg/dL Lactate w/ Reflex Collection Time: 04/20/24 2:25 PM Result Value Ref Range Lactate w/ Reflex 1.1 0.4 - 2.0 mmol/L Magnesium Collection Time: 04/20/24 2:25 PM Result Value Ref Range Magnesium 1.7 (L) 1.8 - 2.6 mg/dL Troponin I, High Sensitivity Collection Time: 04/20/24 4:35 PM Result Value Ref Range Troponin I, High Sensitivity 37 (H) <16 ng/L Troponin I, High Sensitivity 1 Hour Collection Time: 04/20/24 5:40 PM Result Value Ref Range 1 Hour Trop I, High Sensitivity 37 (H) <16 ng/L Troponin I, High Sensitivity Collection Time: 04/20/24 6:40 PM Result Value Ref Range Troponin I, High Sensitivity 37 (H) <16 ng/L POCT Nursing Urine Macroscopic UA Collection Time: 04/20/24 11:49 PM Result Value Ref Range Specific gravity JOHN 1.025 1.003 - 1.035 Leukocyte esterase JOHN Trace (A) Negative^Negative Nitrite JOHN Negative Negative^Negative Ph 6.5 5.0 - 8.5 Protein JOHN >=300 (A) Negative^Negative mg/dL Urine glucose JOHN 500 (A) Negative^Negative mg/dL Ketones JOHN Negative Negative^Negative mg/dL Urobilinogen JOHN 0.2 <1.1 eu/dL Bilirubin JOHN Negative Negative^Negative Hemoglobin JOHN Trace (A) Negative^Negative Hemoglobin A1c Collection Time: 04/21/24 4:32 AM Result Value Ref Range Hemoglobin A1C 8.1 (H) 4.4 - 5.6 % Average glucose 186 mg/dL Thyroid profile includes TSH FT4 Collection Time: 04/21/24 4:32 AM Result Value Ref Range TSH 29.36 (H) 0.49 - 4.67 uIU/mL T4, free 0.49 (L) 0.61 - 1.60 ng/dL Vitamin B12 Collection Time: 04/21/24 4:32 AM Result Value Ref Range Vitamin B-12 351 180 - 914 pg/mL Folate Collection Time: 04/21/24 4:32 AM Result Value Ref Range Folate 6.3 >5.8 ng/mL Bedside Glucose *Place/Obtain serum glucose if >500(>600 MRH) per glucometer. Collection Time: 04/21/24 7:39 AM Result Value Ref Range Bedside glucose 162 (H) 65 - 99 mg/dL Phosphorus Collection Time: 04/21/24 10:50 AM Result Value Ref Range Phosphorus 4.4 2.4 - 4.9 mg/dL Bedside Glucose *Place/Obtain serum glucose if >500(>600 MRH) per glucometer. Collection Time: 04/21/24 11:54 AM Result Value Ref Range Bedside glucose 205 (H) 65 - 99 mg/dL Imaging Results: X-ray chest 1 view Result Date: 04/21/2024 XR CHEST 1 VW: 04/21/2024 10:54 AM Clinical: Cough Upright portable chest is compared with 01/12/2024. Exam limited by apical lordotic positioning. Continued elevation right hemidiaphragm. Heart size remains enlarged. No acute consolidation, large effusion, or pneumothorax. IMPRESSION: * No acute disease to limits of this portable exam. Finalized by Jose Antonio Casanova MD on 04/21/2024 11:[address] brain without contrast Result Date: 04/20/2024 EXAM: CT BRAIN WO CONT CLINICAL INFORMATION: Mental status change, unknown cause. TECHNIQUE: CT head was performed without contrast utilizing 2.5 mm axial reconstruction with images reviewed in bone and brain windows. Automated exposure control was utilized. COMPARISON: 10/27/2022 FINDINGS: There is no evidence for an acute intra or extra-axial hemorrhage. There is a background of patchy and confluent low attenuation within the white matter, most commonly attributable to the sequela of chronic ischemic small vessel disease. The callaway-white matter differentiation is preserved. There is no intracranial mass effect. The ventricles are proportional to the overall brain volume without evidence for outflow obstruction. There is no shift of the midline structures and the basal cisterns are widely patent. There are no depressed or widely calvarial fractures. The paranasal sinuses are well aerated. The mastoids are clear. IMPRESSION: 1. No acute intracranial abnormalities. 2. White matter changes, most commonly attributable to the sequela of chronic ischemic small vessel disease. 3. Please note, hyperacute ischemia can remain occult on CT. If there is persistent concern for acute ischemia, further evaluation with a dedicated MRI is recommended as clinically indicated. All CT scans at this facility use dose modulation, iterative reconstruction, and/or weight based dosing when appropriate to reduce radiation dose to as low as reasonably achievable. Finalized by Armando Milton MD on 04/20/2024 3:58 PM DION ANTUNEZ MD Neurology This note was created with the assistance of a speech-recognition program. Although the intention is to generate a document that actually reflects the content of the visit, no guarantees can be provided that every mistake has been identified and corrected by editing. Work Phone: 04-21-2024 Consult note Associated Order (s): IP CONSULT TO NEUROLOGY Neurology Consultation 04/21/2024 Janay Schilling is a 74 y.o. female Presenting complaints: No chief complaint on file. This lady was undergoing dialysis. States that she felt lightheaded and vertiginous describing both aspects of dizziness. Does not recall what happened thereafter but quick recovery. Semiology of event not described. No convulsive activity reported. While at [facility] nurses tell me that she feels her usual self. Longstanding extensive list of medical problems. Metabolic panel on admission unremarkable. CT brain unremarkable. Await MRI brain report. Heavyset elderly lady edentulous lying in bed states she can not walk uses a wheelchair extraocular movements are full orientation x2 symmetric face tongue palate uvula midline. Additional cranial nerve functions normal no nystagmus. Motor examination reveals 5-strength all limbs. Trace reflexes. Cerebellar testing while lying in bed unremarkable Assessment: Syncope during dialysis probably hemodynamic/metabolic toxic/cardiovascular event. Unlikely seizures based on absence of seizures in past history and no reported convulsive activity. Not much to add at this time other than arranging a carotid scan given stroke risk. This can be followed as an outpatient by primary service. Please call as needed thank you. Problem List: Patient Active Problem List Diagnosis Heart failure with preserved left ventricular function (HFpEF) ([facility] [place] [place]) Class 3 severe obesity due to excess calories in adult ([facility] [place] [place]) Essential hypertension Hypoglycemia COVID-19 Hypothyroidism Acute kidney injury superimposed on CKD ([facility] [place] [place]) Stage 3b chronic kidney disease ([facility] [place] [place]) Anemia of chronic disease Diabetes type 2, controlled ([facility] [place] [place]) Anemia ESRD (end stage renal disease) on dialysis ([facility] [place] [place]) Episode of syncope History of Present Illness: Janay Schilling is a 74 y.o. 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 She is a resident of [facility]. She has had previous episodes of presyncope. Blood pressure at presentation was 155/89 mmHg with temperature 97.9 F and oxygen saturation 99% on room air. Today she feels better and denies headache or dizziness during this encounter. Latest Reference Range & Units 04/20/24 14:25 Sodium 134 - 146 mmol/L 133 (L) Potassium 3.5 - 5.0 mmol/L 3.6 Chloride 98 - 109 mmol/L 95 (L) CO2 22 - 32 mmol/L 27 Glucose 65 - 99 mg/dL 183 (H) Creatinine 0.40 - 1.00 mg/dL 3.14 (H) BUN 5 - 27 mg/dL 19 Calcium 8.5 - 10.5 mg/dL 8.6 Total Protein 6.0 - 8.0 g/dL 6.9 Albumin 3.2 - 5.3 g/dL 3.3 Total bilirubin 0.3 - 1.2 mg/dL 0.3 AST 0 - 41 U/L 15 ALT 0 - 31 U/L 18 Alkaline phosphatase 39 - 130 U/L 91 Anion gap 5 - 15 mmol/L 11 eGFR (CKD-EPI)non-race dependent >59 ml/min/1.73sq.m 15 (L) Magnesium 1.8 - 2.6 mg/dL 1.7 (L) (L): Data is abnormally low (H): Data is abnormally high ROS: General: negative Psychological: negative Ophthalmic: negative ENT: negative Allergy and Immunolog : negative Hematological and Lymphatic : negative Endocrine : negative Respiratory : negative Cardiovascular : negative Gastrointestinal : negative Genito-Urinary : negative Musculoskeletal : negative Neurological : negative Dermatological : negative Past Medical History: Past Medical History: Diagnosis Date Anemia, unspecified Cellulitis Cellulitis, unspecified CHF (congestive heart failure) ([facility] [place] [place]) Chronic kidney disease, unspecified Depression Diabetes mellitus type 2, controlled ([facility] [place] [place]) Difficulty walking DM (diabetes mellitus) ([facility] [place] [place]) MALHOTRA (dyspnea on exertion) Heart failure, systolic ([facility] [place] [place]) Hyperlipidemia Hypertension Hypothyroidism Infectious viral hepatitis Muscle weakness (generalized) Obesity Obstructive chronic bronchitis without exacerbation ([facility] [place] [place]) Post-COVID syndrome resolved Stroke ([facility] [place] [place]) Social History: Social History Socioeconomic History Marital status: Single Tobacco Use Smoking status: Former Current packs/day: 0.00 Average packs/day: 1 pack/day for 53.9 years (53.9 ttl pk-yrs) Types: Cigarettes Start date: 1969 Quit date: 04/01/2023 Years since quittin.0 Smokeless tobacco: Never Vaping Use Vaping status: Never Used Substance and Sexual Activity Alcohol use: No Drug use: No Sexual activity: Defer Other Topics Concern Caffeine Use Yes Social Drivers of Health Food Insecurity: No Food Insecurity (04/21/2024) Hunger Screening Food Insecurity - Worry: Never True Food Insecurity - Inability: Never True Transportation Needs: No Transportation Needs (04/21/2024) PRAPARE - Transportation Lack of Transportation (Medical): No Lack of Transportation (Non-Medical): No Interpersonal Safety: Not At Risk (04/21/2024) Humiliation, Afraid, Rape, and Kick questionnaire Fear of Current or Ex-Partner: No Emotionally Abused: No Physically Abused: No Sexually Abused: No Housing Instability: Low Risk (04/21/2024) Housing Instability Housing Instability: No Family History: Family History Problem Relation Age of Onset Heart disease Mother Kidney disease Mother Alzheimer's disease Sister Hypertension Sister Kidney disease Brother Breast cancer Neg Hx Modifying Factors: Allergies: Allergies Allergen Reactions Amoxicillin Doxycycline Current Medications: Current Facility-Administered Medications Medication Dose Route Frequency Provider Last Rate Last Admin acetaminophen (TYLENOL EXTRA STRENGTH) tablet 500 mg 500 mg oral Q6H PRN Darlyn Peng APRN-CARRIAGE RIDER atorvastatin (LIPITOR) tablet 80 mg 80 mg oral Daily Darlyn Peng APRN-CARRIAGE RIDER 80 mg at 04/21/24 0903 bumetanide (BUMEX) tablet 0.5 mg 0.5 mg oral Daily Darlyn Peng, SIMULATION SOFTWARE ENGINEER-[employer]AGE [employer]IDER 0.5 mg at 04/21/24 0904 carvediloL (COREG) tablet 3.125 mg 3.125 mg oral HS Darlynabimael Peng, SIMULATION SOFTWARE ENGINEER-[employer] docusate sodium (COLACE) capsule 100 mg 100 mg oral BID Darlynabimael Peng, SIMULATION SOFTWARE ENGINEER-[employer]ER 100 mg at 04/21/24 0903 guaiFENesin (MUCINEX) tablet 600 mg 600 mg oral Q12H PRN Darlynabimael Peng, SIMULATION SOFTWARE ENGINEER-CAR[employer]AGE RIDER [START ON 04/22/2024] heparin (porcine) injection 5,000 Units 5,000 Units subcutaneous Q8H MARC Darlynabimael Peng, SIMULATION SOFTWARE ENGINEER-[employer]ER insulin glargine (LANTUS, SEMGLEE) injection pen 12 Units 12 Units subcutaneous Daily Darlyn Shahrzad Peng, SIMULATION SOFTWARE ENGINEER-[employer]IDER 12 Units at 04/21/24 0912 insulin lispro (HumaLOG) injection 2-10 Units 2-10 Units subcutaneous TID with meals Darlyn Peng, SIMULATION SOFTWARE ENGINEER-CAR[employer]IDER 4 Units at 04/21/24 1316 insulin lispro (HumaLOG) injection 2-8 Units 2-8 Units subcutaneous Nightly Darlyn Peng, SIMULATION SOFTWARE ENGINEER-CARRIAGE RIDER isosorbide mononitrate (IMDUR) 24 hr tablet 30 mg 30 mg oral Daily Darlynabimael Peng, SIMULATION SOFTWARE ENGINEER-CARRIAGE RIDER 30 mg at 04/21/24 0904 levothyroxine (SYNTHROID, LEVOTHROID) tablet 188 mcg 188 mcg oral Daily Darlyn Peng, SIMULATION SOFTWARE ENGINEER-CARRIAGE RIDER 188 mcg at 04/21/24 0534 loratadine (CLARITIN) tablet 10 mg 10 mg oral Daily Darlyn Peng, SIMULATION SOFTWARE ENGINEER-CARRIAGE RIDER 10 mg at 04/21/24 0904 [START ON 04/22/2024] losartan (COZAAR) tablet 100 mg 100 mg oral Daily Tiffanie Orosco MD perflutren lipid microspheres (DEFINITY) dilution injection 1.43 mg/10 mL 2 mL intravenous PRN Haylee Ureña, SIMULATION SOFTWARE ENGINEER-CARRIAGE RIDER polyethylene glycol (GLYCOLAX) packet 17 g 17 g oral Daily Darlynabimael Peng, SIMULATION SOFTWARE ENGINEER-CARRIAGE RIDER 17 g at 04/21/24 0906 prochlorperazine (COMPAZINE) tablet 5 mg 5 mg oral Q6H PRN Darlyn M Peng, SIMULATION SOFTWARE ENGINEER-CARRIAGE RIDER Or prochlorperazine (COMPAZINE) injection 5 mg 5 mg intravenous Q6H PRN Darlyn M Peng, SIMULATION SOFTWARE ENGINEER-CARRIAGE RIDER Or prochlorperazine (COMPAZINE) injection 5 mg 5 mg intramuscular Q8H PRN Darlyn M Peng, SIMULATION SOFTWARE ENGINEER[employer]CARRIAGE RIDER sennosides-docusate sodium (SENOKOT-S) 8.6-50 mg 1 tablet 1 tablet oral Q12H PRN Darlyn M Peng, SIMULATION SOFTWARE ENGINEER[employer]CARRIAGE RIDER sevelamer (RENVELA) tablet 800 mg 800 mg oral BID with meals Darlyn M Peng, SIMULATION SOFTWARE ENGINEER-CARRIAGE RIDER 800 mg at 04/21/24 0903 sodium chloride 0.9 % flush 10 mL 10 mL intravenous Once PRN Haylee Kelly Chaffee, SIMULATION SOFTWARE ENGINEER[employer]CARRIAGE RIDER sodium chloride 0.9 % flush 3 mL 3 mL intravenous PRN Darlyn M Peng, SIMULATION SOFTWARE ENGINEER-CARRIAGE RIDER sodium chloride 0.9 % flush 3 mL 3 mL intravenous Q12H MARC Darlyn M Peng, SIMULATION SOFTWARE ENGINEER-CARRIAGE RIDER 3 mL at 04/21/24 0900 Vital Signs: BP 152/50 Pulse 63 Temp 36.8 C (98.2 F) (Oral) Resp 18 Ht 162.6 cm (5' 4 ) Wt 101.1 kg (222 lb 14.2 oz) SpO2 99% BMI 38.26 kg/m General Physical Exam: Assessment: Plan: Counseling; Current Labs: Recent Results (from the past 24 hours) CBC auto differential Collection Time: 04/20/24 2:25 PM Result Value Ref Range White Blood Cells 6.7 4.0 - 11.0 X10E9/L RBC count 3.88 3.80 - 5.20 X10E12/L Hemoglobin 11.8 11.7 - 15.5 g/dL Hematocrit 37.6 35 - 47 % MCV 97 80 - 100 fL MCH 30.4 27 - 34 pg MCHC 31.4 (L) 32 - 36 g/dL RDW 21.4 (H) 11.5 - 15.0 % Platelets 145 (L) 150 - 450 X10E9/L MPV 8.6 7 - 12 fL % neutrophils 67.6 % % lymphocytes 21.6 % % monocytes 5.4 % % eosinophils 4.2 % % Basophils 1.2 % Neutrophils Absolute (A) 4.5 1.5 - 6.6 X10E9/L Lymphocytes Absolute 1.4 1.0 - 3.5 X10E9/L Monocytes Absolute 0.4 0 - 0.9 X10E9/L Eosinophils Absolute 0.3 0.0 - 0.4 X10E9/L Basophils Absolute 0.1 0.0 - 0.2 X10E9/L Comprehensive metabolic panel Collection Time: 04/20/24 2:25 PM Result Value Ref Range Sodium 133 (L) 134 - 146 mmol/L Potassium, Bld 3.6 3.5 - 5.0 mmol/L Chloride 95 (L) 98 - 109 mmol/L CO2 27 22 - 32 mmol/L Anion gap 11 5 - 15 mmol/L BUN 19 5 - 27 mg/dL Creatinine 3.14 (H) 0.40 - 1.00 mg/dL Glucose 183 (H) 65 - 99 mg/dL Calcium 8.6 8.5 - 10.5 mg/dL Total Protein 6.9 6.0 - 8.0 g/dL Albumin 3.3 3.2 - 5.3 g/dL Alkaline Phosphatase 91 39 - 130 U/L AST 15 0 - 41 U/L ALT 18 0 - 31 U/L Total bilirubin 0.3 0.3 - 1.2 mg/dL eGFR (CKD-EPI)non-race dependent 15 (L) >59 ml/min/1.73sq.m C-reactive protein Collection Time: 04/20/24 2:25 PM Result Value Ref Range CRP <0.5 0.000 - 0.744 mg/dL Lactate w/ Reflex Collection Time: 04/20/24 2:25 PM Result Value Ref Range Lactate w/ Reflex 1.1 0.4 - 2.0 mmol/L Magnesium Collection Time: 04/20/24 2:25 PM Result Value Ref Range Magnesium 1.7 (L) 1.8 - 2.6 mg/dL Troponin I, High Sensitivity Collection Time: 04/20/24 4:35 PM Result Value Ref Range Troponin I, High Sensitivity 37 (H) <16 ng/L Troponin I, High Sensitivity 1 Hour Collection Time: 04/20/24 5:40 PM Result Value Ref Range 1 Hour Trop I, High Sensitivity 37 (H) <16 ng/L Troponin I, High Sensitivity Collection Time: 04/20/24 6:40 PM Result Value Ref Range Troponin I, High Sensitivity 37 (H) <16 ng/L POCT Nursing Urine Macroscopic UA Collection Time: 04/20/24 11:49 PM Result Value Ref Range Specific gravity OJHN 1.025 1.003 - 1.035 Leukocyte esterase JOHN Trace (A) Negative^Negative Nitrite JOHN Negative Negative^Negative Ph 6.5 5.0 - 8.5 Protein JOHN >=300 (A) Negative^Negative mg/dL Urine glucose JOHN 500 (A) Negative^Negative mg/dL Ketones JOHN Negative Negative^Negative mg/dL Urobilinogen JOHN 0.2 <1.1 eu/dL Bilirubin JOHN Negative Negative^Negative Hemoglobin JOHN Trace (A) Negative^Negative Hemoglobin A1c Collection Time: 04/21/24 4:32 AM Result Value Ref Range Hemoglobin A1C 8.1 (H) 4.4 - 5.6 % Average glucose 186 mg/dL Thyroid profile includes TSH FT4 Collection Time: 04/21/24 4:32 AM Result Value Ref Range TSH 29.36 (H) 0.49 - 4.67 uIU/mL T4, free 0.49 (L) 0.61 - 1.60 ng/dL Vitamin B12 Collection Time: 04/21/24 4:32 AM Result Value Ref Range Vitamin B-12 351 180 - 914 pg/mL Folate Collection Time: 04/21/24 4:32 AM Result Value Ref Range Folate 6.3 >5.8 ng/mL Bedside Glucose *Place/Obtain serum glucose if >500(>600 MRH) per glucometer. Collection Time: 04/21/24 7:39 AM Result Value Ref Range Bedside glucose 162 (H) 65 - 99 mg/dL Phosphorus Collection Time: 04/21/24 10:50 AM Result Value Ref Range Phosphorus 4.4 2.4 - 4.9 mg/dL Bedside Glucose *Place/Obtain serum glucose if >500(>600 MRH) per glucometer. Collection Time: 04/21/24 11:54 AM Result Value Ref Range Bedside glucose 205 (H) 65 - 99 mg/dL Imaging Results: X-ray chest 1 view Result Date: 04/21/2024 XR CHEST 1 VW: 04/21/2024 10:54 AM Clinical: Cough Upright portable chest is compared with 01/12/2024. Exam limited by apical lordotic positioning. Continued elevation right hemidiaphragm. Heart size remains enlarged. No acute consolidation, large effusion, or pneumothorax. IMPRESSION: * No acute disease to limits of this portable exam. Finalized by Jose Antonio Casanova MD on 04/21/2024 11:[address] brain without contrast Result Date: 04/20/2024 EXAM: CT BRAIN WO CONT CLINICAL INFORMATION: Mental status change, unknown cause. TECHNIQUE: CT head was performed without contrast utilizing 2.5 mm axial reconstruction with images reviewed in bone and brain windows. Automated exposure control was utilized. COMPARISON: 10/27/2022 FINDINGS: There is no evidence for an acute intra or extra-axial hemorrhage. There is a background of patchy and confluent low attenuation within the white matter, most commonly attributable to the sequela of chronic ischemic small vessel disease. The callaway-white matter differentiation is preserved. There is no intracranial mass effect. The ventricles are proportional to the overall brain volume without evidence for outflow obstruction. There is no shift of the midline structures and the basal cisterns are widely patent. There are no depressed or widely calvarial fractures. The paranasal sinuses are well aerated. The mastoids are clear. IMPRESSION: 1. No acute intracranial abnormalities. 2. White matter changes, most commonly attributable to the sequela of chronic ischemic small vessel disease. 3. Please note, hyperacute ischemia can remain occult on CT. If there is persistent concern for acute ischemia, further evaluation with a dedicated MRI is recommended as clinically indicated. All CT scans at this facility use dose modulation, iterative reconstruction, and/or weight based dosing when appropriate to reduce radiation dose to as low as reasonably achievable. Finalized by Armando Milton MD on 04/20/2024 3:58 PM DION ANTUNZE MD Neurology This note was created with the assistance of a speech-recognition program. Although the intention is to generate a document that actually reflects the content of the visit, no guarantees can be provided that every mistake has been identified and corrected by editing. NEPHROLOGY CONSULT NOTE Date of Admission: 04/21/2024 1:50 AM Reason for Consult: Management of hemodialysis dependent end-stage renal disease. PCP: NO PCP, NO PCP History of Present Illness: Janay Schilling is a 74 y.o. 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 She is a resident of [facility]. She has had previous episodes of presyncope. Blood pressure at presentation was 155/89 mmHg with temperature 97.9 F and oxygen saturation 99% on room air. Today she feels better and denies headache or dizziness during this encounter. PMH and PSH: PMH: Past Medical History: Diagnosis Date Anemia, unspecified Cellulitis Cellulitis, unspecified CHF (congestive heart failure) ([facility] [place] [place] Chronic kidney disease, unspecified Depression Diabetes mellitus type 2, controlled ([facility] [place] [place]) Difficulty walking DM (diabetes mellitus) ([facility] [place] [place]) MALHOTRA (dyspnea on exertion) Heart failure, systolic ([facility] [place] [place]) Hyperlipidemia Hypertension Hypothyroidism Infectious viral hepatitis Muscle weakness (generalized) Obesity Obstructive chronic bronchitis without exacerbation ([facility] [place] [place]) Post-COVID syndrome resolved Stroke ([facility] [place] [place]) PSH: Past Surgical History: Procedure Laterality Date APPENDECTOMY CHOLECYSTECTOMY TONSILLECTOMY * No surgery found * Social History: Social History Socioeconomic History Marital status: Single Spouse name: Not on file Number of children: Not on file Years of education: Not on file Highest education level: Not on file Occupational History Not on file Tobacco Use Smoking status: Former Smokeless tobacco: Never Vaping Use Vaping status: Never Used Substance and Sexual Activity Alcohol use: No Drug use: No Sexual activity: Defer Other Topics Concern Caffeine Use Yes Social History Narrative Not on file Social Drivers of Health Financial Resource Strain: Not on file Food Insecurity: No Food Insecurity (01/12/2024) Hunger Screening Food Insecurity - Worry: Never True Food Insecurity - Inability: Never True Transportation Needs: No Transportation Needs (09/01/2023) PRAPARE - Transportation Lack of Transportation (Medical): No Lack of Transportation (Non-Medical): No Physical Activity: Not on file Stress: Not on file Social Connections: Not on file Interpersonal Safety: Not At Risk (09/01/2023) Humiliation, Afraid, Rape, and Kick questionnaire Fear of Current or Ex-Partner: No Emotionally Abused: No Physically Abused: No Sexually Abused: No Housing Instability: Low Risk (09/01/2023) Housing Instability Housing Instability: No Family History: Family History Problem Relation Age of Onset Heart disease Mother Kidney disease Mother Alzheimer's disease Sister Hypertension Sister Kidney disease Brother Breast cancer Neg Hx Allergies: Allergies Allergen Reactions Amoxicillin Doxycycline Home Meds: Medications Prior to Admission Medication Sig Dispense Refill Last Dose/Taking acetaminophen (TYLENOL) 500 mg tablet Take 1 tablet (500 mg total) by mouth every 4 (four) hours as needed for pain. Past Week atorvastatin (LIPITOR) 40 mg tablet Take 2 tablets (80 mg total) by mouth in the morning. 04/20/2024 Morning bumetanide (BUMEX) 0.5 mg tablet Take 1 tablet (0.5 mg total) by mouth daily. 30 tablet 0 04/20/2024 Morning carvediloL (COREG) 3.125 mg tablet Take 1 tablet (3.125 mg total) by mouth once daily at bedtime. Hold for HR less than 60 04/20/2024 Evening cetirizine (ZyrTEC) 10 mg tablet Take 1 tablet (10 mg total) by mouth in the morning. 04/20/2024 Morning docusate sodium (COLACE) 100 mg capsule Take 1 capsule (100 mg total) by mouth in the morning and 1 capsule (100 mg total) before bedtime. 04/20/2024 Morning ergocalciferol (DRISDOL) 1,250 mcg (50,000 unit) capsule Take 1 capsule (50,000 Units total) by mouth in the morning. Give 1 capsule by mouth one time daily starting on the and ending on the every month.. 04/20/2024 Morning guaiFENesin (MUCINEX) 600 mg tablet extended release 12hr Take 1 tablet (600 mg total) by mouth every 12 (twelve) hours as needed (congestion). Past Week isosorbide mononitrate (IMDUR) 30 mg 24 hr tablet Take 1 tablet (30 mg total) by mouth daily. 04/20/2024 Morning levothyroxine sodium (LEVOTHYROXINE ORAL) Take 188 mcg by mouth in the morning. 04/20/2024 Morning losartan (COZAAR) 50 mg tablet Take 1 tablet (50 mg total) by mouth. Mon, Wed, Fri, Sun 04/20/2024 Morning polyethylene glycol (MIRALAX) 17 gram/dose powder Take 17 g by mouth in the morning. Past Week sennosides-docusate sodium (SENNA WITH DOCUSATE SODIUM) 8.6-50 mg Take 1 tablet by mouth in the morning and 1 tablet before bedtime. Past Week sertraline (ZOLOFT) 100 mg tablet Take 2 tablets (200 mg total) by mouth in the morning. 04/20/2024 Morning sevelamer (RENVELA) 800 mg tablet Take 1 tablet (800 mg total) by mouth in the morning and 1 tablet (800 mg total) in the evening. Take with meals. 04/20/2024 Morning vitamin B cbikjd-S-EN-zinc cit (DIALYVITE 800 WITH ZINC 15) 0.8-15 mg tablet Take 1 tablet by mouth every morning. 04/20/2024 Morning albuterol (PROVENTIL HFA;VENTOLIN HFA) 90 mcg/actuation inhaler Inhale 2 puffs every 4 (four) hours as needed for wheezing or shortness of breath. (Patient not taking: Reported on 04/21/2024) Unknown LANTUS SOLOSTAR U-100 INSULIN 100 unit/mL (3 mL) insulin pen Inject 12 Units under the skin in the morning. midodrine (PROAMATINE) 5 mg tablet Take 1 tablet (5 mg total) by mouth. One tablet, one time daily, on days , , and Tue. Hold if SMP is greater than 110 (Patient not taking: Reported on 04/21/2024) Unknown Inpatient Meds: atorvastatin, 80 mg, oral, Daily bumetanide, 0.5 mg, oral, Daily carvediloL, 3.125 mg, oral, HS docusate sodium, 100 mg, oral, BID [START ON 04/22/2024] heparin (porcine), 5,000 Units, subcutaneous, Q8H MARC insulin glargine, 12 Units, subcutaneous, Daily insulin lispro, 2-10 Units, subcutaneous, TID with meals insulin lispro, 2-8 Units, subcutaneous, Nightly isosorbide mononitrate, 30 mg, oral, Daily levothyroxine, 188 mcg, oral, Daily loratadine, 10 mg, oral, Daily losartan, 50 mg, oral, Daily polyethylene glycol, 17 g, oral, Daily sevelamer, 800 mg, oral, BID with meals sodium chloride, 3 mL, intravenous, Q12H MARC Inpatient Infusion Meds: Nutrition: Dietary Orders (From admission, onward) Start Ordered 04/21/24 0236 Adult diet Regular Texture; Consistent Carb 210 grams (1800 kcal); Cardiac Diet effective now Question Answer Comment Diet Type: Regular Texture Carbohydrate Modifiers: Consistent Carb 210 grams (1800 kcal) Other Modifiers: Cardiac 04/21/24 0238 Review of Systems: Constitutional: No fevers chills or night sweats no weight loss Eyes: No scleral icterus no conjunctiva pallor is no visual changes no blurry vision Ears, nose, mouth, throat, and face: No ear pain no mucositis no sore throat Respiratory: No shortness of breath no hemoptysis, no cough, no wheezing Cardiovascular: No chest pain, no palpitations Gastrointestinal: No nausea or vomiting no abdominal pain, no abdominal cramping, normal bowel movements, no diarrhea or constipation Integument/breast: No rashes, and no suspicious lesions or ecchymosis Hematologic/lymphatic: No easy bruising or bleeding, and noted no enlarged lymph nodes Neurological: No headaches, no gait imbalance, no cognitive changes, no focal motor weakness Behavioral/Psych: No significant anxiety or depression no hallucinations All other systems reviewed and are negative. Physical Exam: Admission Weight: Weight: 101.1 kg (222 lb 14.2 oz) Vitals: Vitals: 04/21/24 0201 04/21/24 0239 BP: 180/46 Pulse: 67 Resp: 18 Temp: 36.7 C (98.1 F) TempSrc: Oral SpO2: 100% Weight: 101.1 kg (222 lb 14.2 oz) 101.1 kg (222 lb 14.2 oz) Height: 162.6 cm (5' 4 ) INTAKE/OUTPUT: No intake or output data in the 24 hours ending 04/21/24 0630 General Appearance: Healthy, alert, active, cooperative, and in no distress Head: Normocephalic, without obvious abnormality, atraumatic Eyes: conjunctivae/corneas clear. ENT: ENT exam normal, no neck nodes or sinus tenderness Neck: no adenopathy, no carotid bruit, no JVD Lungs: clear to auscultation bilaterally Heart: regular rate and rhythm, S1, S2 normal, no murmur, click, rub or gallop Abdomen: soft, non-tender; bowel sounds normal; no masses, no organomegaly Extremities: extremities normal, atraumatic, no cyanosis or edema Skin: Skin color, texture, turgor normal. No rashes or lesions Neurologic: no focal weakness. Can move all extremities Labs: Results from last 7 days Lab Units 04/20/24 1425 POTASSIUM mmol/L 3.6 CHLORIDE mmol/L 95* CO2 mmol/L 27 BUN mg/dL 19 CREATININE mg/dL 3.14* CALCIUM mg/dL 8.6 Results from last 7 days Lab Units 04/20/24 1425 WBC X10E9/L 6.7 HEMOGLOBIN g/dL 11.8 HEMATOCRIT % 37.6 PLATELETS X10E9/L 145* Results from last 7 days Lab Units 04/20/24 1425 MAGNESIUM mg/dL 1.7* Lab Results Component Value Date CALCIUM 8.6 04/20/2024 Lab Results Component Value Date IRON 41 (L) 07/13/2019 TIBC 361 07/13/2019 Assessment/plan: 1. End-stage renal disease - we will maintain Tuesday, Tuesday and Tuesday hemodialysis schedule. Renal diet- 2 gram sodium,2 gram potassium,1500 ml fluid restriction,1800 KCal,1 gram phosphorus and 1.2 gram/kg/day high biologic value protein. 2. Syncope - rule out neurocardiogenic factors. Will also check orthostatics. 3. Anemia of chronic kidney disease - hemoglobin 11.8 g/dL is within target range. 4. Hypomagnesemia - will replace with IV magnesium sulfate 2 g. 5. Systemic hypertension - blood pressure control is suboptimal. Will increase losartan to 100 mg p.o. daily. Prognosis is guarded. Thank you very much for the courtesy and confidence of this consultation. - Tiffanie Orosco MD 04/21/24 9:52 AM Attending furnace mason Prognosis is guarded. Thank you very much for the courtesy and confidence of this consultation. TIFFANIE OROSCO MD FACP Attending Clinical Chimney Builder ANY QUESTIONS FEEL FREE TO CALL: 1. OFFICE [phone] documented in this encounter Wingu 04-21-2024 History and physical note Images from the original note were not included. [facility] Internal Medicine [facility] Medicine History & Physical Patient: Janay Schilling Date of : 1950 Room: [address] [place] [address] PCP: NO PCP, NO PCP Admission date: 04/21/2024 1:50 AM Encounter date: 04/21/24 SUBJECTIVE Janay Schilling is a 74 y.o. female who presented with single episode at dialysis with 30 minutes after treatment. Patient has had any syncopal episodes prior to this. Patient denies feeling unwell prior to this. She is a [facility] of [facility] [place] [facility]. ER workup, hemoglobin 11.1, platelets 145, sodium 133, glucose 183, creatinine 3.14, GFR 15, Mag 1.7, serial troponins 37, 37, 37. Rapid lactate 1.1, CRP normal. Trace amount of leukocytes in her urine. Urine culture pending. Patient transferred to [facility] from [facility] due to them not having dialysis on site. Patient is seen and examined at bedside. Patient is a bit of a poor historian. Relates that she did pass out at dialysis yesterday but has not feeling unwell in his pulse passed out multiple times in the past. She relies it is [facility] and has not walked in a few years. Allergies: Amoxicillin and Doxycycline Prior to Admission medications Medication Sig Start Date End Date Taking? Authorizing Provider acetaminophen (TYLENOL) 500 mg tablet Take 1 tablet (500 mg total) by mouth every 4 (four) hours as needed for pain. Yes Not In System Ref Prov atorvastatin (LIPITOR) 40 mg tablet Take 2 tablets (80 mg total) by mouth in the morning. Yes Not In System Ref Prov bumetanide (BUMEX) 0.5 mg tablet Take 1 tablet (0.5 mg total) by mouth daily. 09/03/23 Yes Libby Griffiths, SIMULATION SOFTWARE ENGINEER-CARRIAGE RIDER carvediloL (COREG) 3.125 mg tablet Take 1 tablet (3.125 mg total) by mouth once daily at bedtime. Hold for HR less than 60 10/15/22 Yes Not In System Ref Prov cetirizine (ZyrTEC) 10 mg tablet Take 1 tablet (10 mg total) by mouth in the morning. Yes Not In System Ref Prov docusate sodium (COLACE) 100 mg capsule Take 1 capsule (100 mg total) by mouth in the morning and 1 capsule (100 mg total) before bedtime. Yes Not In System Ref Prov ergocalciferol (DRISDOL) 1,250 mcg (50,000 unit) capsule Take 1 capsule (50,000 Units total) by mouth in the morning. Give 1 capsule by mouth one time daily starting on the and ending on the every month.. Yes Not In System Ref Prov guaiFENesin (MUCINEX) 600 mg tablet extended release 12hr Take 1 tablet (600 mg total) by mouth every 12 (twelve) hours as needed (congestion). Yes Not In System Ref Prov isosorbide mononitrate (IMDUR) 30 mg 24 hr tablet Take 1 tablet (30 mg total) by mouth daily. 07/19/19 Yes Negro Elder MD levothyroxine sodium (LEVOTHYROXINE ORAL) Take 188 mcg by mouth in the morning. Yes Not In System Ref Prov losartan (COZAAR) 50 mg tablet Take 1 tablet (50 mg total) by mouth. Mon, Wed, Fri, Sun 10/07/22 Yes Not In System Ref Prov polyethylene glycol (MIRALAX) 17 gram/dose powder Take 17 g by mouth in the morning. Yes Not In System Ref Prov sennosides-docusate sodium (SENNA WITH DOCUSATE SODIUM) 8.6-50 mg Take 1 tablet by mouth in the morning and 1 tablet before bedtime. Yes Not In System Ref Prov sertraline (ZOLOFT) 100 mg tablet Take 2 tablets (200 mg total) by mouth in the morning. Yes Not In System Ref Prov sevelamer (RENVELA) 800 mg tablet Take 1 tablet (800 mg total) by mouth in the morning and 1 tablet (800 mg total) in the evening. Take with meals. Yes Not In System Ref Prov vitamin B isgert-B-BG-zinc cit (DIALYVITE 800 WITH ZINC 15) 0.8-15 mg tablet Take 1 tablet by mouth every morning. Yes Not In System Ref Prov albuterol (PROVENTIL HFA;VENTOLIN HFA) 90 mcg/actuation inhaler Inhale 2 puffs every 4 (four) hours as needed for wheezing or shortness of breath. Patient not taking: Reported on 04/21/2024 Not In System Ref Prov LANTUS SOLOSTAR U-100 INSULIN 100 unit/mL (3 mL) insulin pen Inject 12 Units under the skin in the morning. 06/26/23 Not In System Ref Prov midodrine (PROAMATINE) 5 mg tablet Take 1 tablet (5 mg total) by mouth. One tablet, one time daily, on days , , and Tue. Hold if SMP is greater than 110 Patient not taking: Reported on 04/21/2024 Not In System Ref Prov Past Medical History: Patient has a past medical history of Anemia, unspecified, Cellulitis, Cellulitis, unspecified, CHF (congestive heart failure) ([facility] Chronic kidney disease, unspecified, Depression, Diabetes mellitus type 2, controlled ([facility]), Difficulty walking, DM (diabetes mellitus) ([facility]), MALHOTRA (dyspnea on exertion), Heart failure, systolic ([facility]), Hyperlipidemia, Hypertension, Hypothyroidism, Infectious viral hepatitis, Muscle weakness (generalized), Obesity, Obstructive chronic bronchitis without exacerbation ([facility]), Post-COVID syndrome resolved, and Stroke ([facility]). Past Surgical History: Patient has a past surgical history that includes Cholecystectomy; Appendectomy; and Tonsillectomy. Family History: Patient's family history includes Alzheimer's disease in her sister; Heart disease in her mother; Hypertension in her sister; Kidney disease in her brother and mother. Social History: Patient reports that she has quit smoking. She has never used smokeless tobacco. She reports that she does not drink alcohol and does not use drugs. ROS Review of Systems Constitutional: Negative for activity change, appetite change, chills and fatigue. HENT: Negative for congestion and rhinorrhea. Eyes: Negative for discharge and itching. Respiratory: Negative for apnea and shortness of breath. Cardiovascular: Negative for chest pain and leg swelling. Gastrointestinal: Negative for abdominal distention and abdominal pain. Genitourinary: Negative for difficulty urinating and genital sores. Musculoskeletal: Negative for arthralgias. Skin: Negative for color change. Allergic/Immunologic: Negative for environmental allergies. Neurological: Positive for syncope and weakness. Negative for dizziness and facial asymmetry. OBJECTIVE BP 150/67 Pulse 62 Temp 36.3 C (97.4 F) (Oral) Resp 18 Ht 162.6 cm (5' 4 ) Wt 101.1 kg (222 lb 14.2 oz) SpO2 100% BMI 38.26 kg/m Temp: [36.3 C (97.4 F)-36.7 C (98.1 F)] 36.3 C (97.4 F) Pulse: [57-73] 62 Resp: [18-20] 18 BP: (143-212)/(45-89) 150/67 SpO2: [85 %-100 %] 100 % O2 Device: Nasal cannula O2 Flow Rate (L/min): [2 L/min] 2 L/min No intake or output data in the 24 hours ending 04/21/24 1130 Physical Exam Physical Exam Constitutional: Appearance: Normal appearance. HENT: Head: Normocephalic. Nose: No congestion. Mouth/Throat: Pharynx: Oropharynx is clear. Eyes: Pupils: Pupils are equal, round, and reactive to light. Cardiovascular: Rate and Rhythm: Normal rate and regular rhythm. Pulses: Normal pulses. Heart sounds: Murmur heard. Pulmonary: Effort: Pulmonary effort is normal. Breath sounds: Normal breath sounds. Abdominal: General: Abdomen is flat. Bowel sounds are normal. Palpations: Abdomen is soft. Musculoskeletal: General: Normal range of motion. Cervical back: Normal range of motion and neck supple. Skin: General: Skin is warm and dry. Capillary Refill: Capillary refill takes less than 2 seconds. Neurological: General: No focal deficit present. Mental Status: She is alert and oriented to person, place, and time. Psychiatric: Mood and Affect: Mood normal. Medications Scheduled: atorvastatin, 80 mg, oral, Daily bumetanide, 0.5 mg, oral, Daily carvediloL, 3.125 mg, oral, HS docusate sodium, 100 mg, oral, BID [START ON 04/22/2024] heparin (porcine), 5,000 Units, subcutaneous, Q8H MARC insulin glargine, 12 Units, subcutaneous, Daily insulin lispro, 2-10 Units, subcutaneous, TID with meals insulin lispro, 2-8 Units, subcutaneous, Nightly isosorbide mononitrate, 30 mg, oral, Daily levothyroxine, 188 mcg, oral, Daily loratadine, 10 mg, oral, Daily [START ON 04/22/2024] losartan, 100 mg, oral, Daily polyethylene glycol, 17 g, oral, Daily sevelamer, 800 mg, oral, BID with meals sodium chloride, 3 mL, intravenous, Q12H MARC Infusions: As Needed: acetaminophen guaiFENesin prochlorperazine OR prochlorperazine OR prochlorperazine sennosides-docusate sodium sodium chloride Allergies: Amoxicillin and Doxycycline Labs Recent Results (from the past 24 hours) CBC auto differential Collection Time: 04/20/24 2:25 PM Result Value Ref Range White Blood Cells 6.7 4.0 - 11.0 X10E9/L RBC count 3.88 3.80 - 5.20 X10E12/L Hemoglobin 11.8 11.7 - 15.5 g/dL Hematocrit 37.6 35 - 47 % MCV 97 80 - 100 fL MCH 30.4 27 - 34 pg MCHC 31.4 (L) 32 - 36 g/dL RDW 21.4 (H) 11.5 - 15.0 % Platelets 145 (L) 150 - 450 X10E9/L MPV 8.6 7 - 12 fL % neutrophils 67.6 % % lymphocytes 21.6 % % monocytes 5.4 % % eosinophils 4.2 % % Basophils 1.2 % Neutrophils Absolute (A) 4.5 1.5 - 6.6 X10E9/L Lymphocytes Absolute 1.4 1.0 - 3.5 X10E9/L Monocytes Absolute 0.4 0 - 0.9 X10E9/L Eosinophils Absolute 0.3 0.0 - 0.4 X10E9/L Basophils Absolute 0.1 0.0 - 0.2 X10E9/L Comprehensive metabolic panel Collection Time: 04/20/24 2:25 PM Result Value Ref Range Sodium 133 (L) 134 - 146 mmol/L Potassium, Bld 3.6 3.5 - 5.0 mmol/L Chloride 95 (L) 98 - 109 mmol/L CO2 27 22 - 32 mmol/L Anion gap 11 5 - 15 mmol/L BUN 19 5 - 27 mg/dL Creatinine 3.14 (H) 0.40 - 1.00 mg/dL Glucose 183 (H) 65 - 99 mg/dL Calcium 8.6 8.5 - 10.5 mg/dL Total Protein 6.9 6.0 - 8.0 g/dL Albumin 3.3 3.2 - 5.3 g/dL Alkaline Phosphatase 91 39 - 130 U/L AST 15 0 - 41 U/L ALT 18 0 - 31 U/L Total bilirubin 0.3 0.3 - 1.2 mg/dL eGFR (CKD-EPI)non-race dependent 15 (L) >59 ml/min/1.73sq.m C-reactive protein Collection Time: 04/20/24 2:25 PM Result Value Ref Range CRP <0.5 0.000 - 0.744 mg/dL Lactate w/ Reflex Collection Time: 04/20/24 2:25 PM Result Value Ref Range Lactate w/ Reflex 1.1 0.4 - 2.0 mmol/L Magnesium Collection Time: 04/20/24 2:25 PM Result Value Ref Range Magnesium 1.7 (L) 1.8 - 2.6 mg/dL Troponin I, High Sensitivity Collection Time: 04/20/24 4:35 PM Result Value Ref Range Troponin I, High Sensitivity 37 (H) <16 ng/L Troponin I, High Sensitivity 1 Hour Collection Time: 04/20/24 5:40 PM Result Value Ref Range 1 Hour Trop I, High Sensitivity 37 (H) <16 ng/L Troponin I, High Sensitivity Collection Time: 04/20/24 6:40 PM Result Value Ref Range Troponin I, High Sensitivity 37 (H) <16 ng/L POCT Nursing Urine Macroscopic UA Collection Time: 04/20/24 11:49 PM Result Value Ref Range Specific gravity JOHN 1.025 1.003 - 1.035 Leukocyte esterase JOHN Trace (A) Negative^Negative Nitrite JOHN Negative Negative^Negative Ph 6.5 5.0 - 8.5 Protein JOHN >=300 (A) Negative^Negative mg/dL Urine glucose JOHN 500 (A) Negative^Negative mg/dL Ketones JOHN Negative Negative^Negative mg/dL Urobilinogen JOHN 0.2 <1.1 eu/dL Bilirubin JOHN Negative Negative^Negative Hemoglobin JOHN Trace (A) Negative^Negative Hemoglobin A1c Collection Time: 04/21/24 4:32 AM Result Value Ref Range Hemoglobin A1C 8.1 (H) 4.4 - 5.6 % Average glucose 186 mg/dL Thyroid profile includes TSH FT4 Collection Time: 04/21/24 4:32 AM Result Value Ref Range TSH 29.36 (H) 0.49 - 4.67 uIU/mL T4, free 0.49 (L) 0.61 - 1.60 ng/dL Vitamin B12 Collection Time: 04/21/24 4:32 AM Result Value Ref Range Vitamin B-12 351 180 - 914 pg/mL Folate Collection Time: 04/21/24 4:32 AM Result Value Ref Range Folate 6.3 >5.8 ng/mL Bedside Glucose *Place/Obtain serum glucose if >500(>600 MRH) per glucometer. Collection Time: 04/21/24 7:39 AM Result Value Ref Range Bedside glucose 162 (H) 65 - 99 mg/dL Phosphorus Collection Time: 04/21/24 10:50 AM Result Value Ref Range Phosphorus 4.4 2.4 - 4.9 mg/dL Radiology CT brain without contrast Result Date: 04/20/2024 Narrative: EXAM: CT BRAIN WO CONT CLINICAL INFORMATION: Mental status change, unknown cause. TECHNIQUE: CT head was performed without contrast utilizing 2.5 mm axial reconstruction with images reviewed in bone and brain windows. Automated exposure control was utilized. COMPARISON: 10/27/2022 FINDINGS: There is no evidence for an acute intra or extra-axial hemorrhage. There is a background of patchy and confluent low attenuation within the white matter, most commonly attributable to the sequela of chronic ischemic small vessel disease. The callaway-white matter differentiation is preserved. There is no intracranial mass effect. The ventricles are proportional to the overall brain volume without evidence for outflow obstruction. There is no shift of the midline structures and the basal cisterns are widely patent. There are no depressed or widely calvarial fractures. The paranasal sinuses are well aerated. The mastoids are clear. IMPRESSION: 1. No acute intracranial abnormalities. 2. White matter changes, most commonly attributable to the sequela of chronic ischemic small vessel disease. 3. Please note, hyperacute ischemia can remain occult on CT. If there is persistent concern for acute ischemia, further evaluation with a dedicated MRI is recommended as clinically indicated. All CT scans at this facility use dose modulation, iterative reconstruction, and/or weight based dosing when appropriate to reduce radiation dose to as low as reasonably achievable. Finalized by Armando Milton MD on 04/20/2024 3:58 PM HOSPITAL PROBLEM LIST Principal Problem: Episode of syncope Active Problems: Class 3 severe obesity due to excess calories in adult ([facility] [place] [place]) Essential hypertension Hypothyroidism Diabetes type 2, controlled ([facility] [place] [place]) ESRD (end stage renal disease) on dialysis ([facility] [place] [place]) ASSESSMENT & PLAN Episode of syncope Syncopal episode after dialysis Check orthostatic blood pressures Get Echo EKG reviewed Neurology consulted Continuous telemetry Essential hypertension Well controlled on Coreg Hypothyroidism TSH 29. 6 Increase Synthroid to 200 mcg daily Diabetes type 2, controlled ([facility] [place] [place]) Lantus 12 units daily Accu-Cheks AC and HS with sliding scale coverage ESRD (end stage renal disease) on dialysis ([facility] [place] [place]) Tuesday dialysis Nephrology consulted Class 3 severe obesity due to excess calories in adult ([facility] [place] [place]) Admission orders placed and home medications reconciled. DVT prophylaxis: SCD's and heparin PT/OT to evaluate and treat. DC planning: [facility]ed [facility] [place] [facility] IRINA Mejia 04/21/2024 11:30 AM [facility] Medicine - [facility] Hospitalists 7AM-7PM (all facilities): Message rounding KYLE in [employer] or [employer] through [employer]. 7PM-7AM ([facility], [facility] Psychiatry and Inpatient Rehab): Page Night KYLE, [phone]. 7PM-7AM ([place], [place], [place], [place] and [facility] Rehab): Page on-call KYLE, . IRINA Blackman 04/21/24 2100 I have seen and evaluated the patient, and have reviewed the history above and agree. I have repeated the flores portions of the physical exam and concur with the KYLE findings. I have reviewed all laboratory findings and imaging reports/films. I agree with the plan as noted above Dr Joseph Pleitez MD, MRCP 04/21/2024 5:26 PM [facility] 04-21-2024 History and physical note Images from the original note were not included. [facility] History & Physical Patient: Janay Schilling Date of : 1950 Room: [address] [place] [address] PCP: NO PCP, NO PCP Admission date: 04/21/2024 1:50 AM Encounter date: 04/21/24 SUBJECTIVE Janay Schilling is a 74 y.o. female who presented with single episode at dialysis with 30 minutes after treatment. Patient has had any syncopal episodes prior to this. Patient denies feeling unwell prior to this. She is a resident of a [facility]. ER workup, hemoglobin 11.1, platelets 145, sodium 133, glucose 183, creatinine 3.14, GFR 15, Mag 1.7, serial troponins 37, 37, 37. Rapid lactate 1.1, CRP normal. Trace amount of leukocytes in her urine. Urine culture pending. Patient transferred to [facility] from [facility] due to them not having dialysis on site. Patient is seen and examined at bedside. Patient is a bit of a poor historian. Relates that she did pass out at dialysis yesterday but has not feeling unwell in his pulse passed out multiple times in the past. She relies it is [facility] and has not walked in a few years. Allergies: Amoxicillin and Doxycycline Prior to Admission medications Medication Sig Start Date End Date Taking? Authorizing Provider acetaminophen (TYLENOL) 500 mg tablet Take 1 tablet (500 mg total) by mouth every 4 (four) hours as needed for pain. Yes Not In System Ref Prov atorvastatin (LIPITOR) 40 mg tablet Take 2 tablets (80 mg total) by mouth in the morning. Yes Not In System Ref Prov bumetanide (BUMEX) 0.5 mg tablet Take 1 tablet (0.5 mg total) by mouth daily. 09/03/23 Yes Libby Griffiths, [employer] carvediloL (COREG) 3.125 mg tablet Take 1 tablet (3.125 mg total) by mouth once daily at bedtime. Hold for HR less than 60 10/15/22 Yes Not In System Ref Prov cetirizine (ZyrTEC) 10 mg tablet Take 1 tablet (10 mg total) by mouth in the morning. Yes Not In System Ref Prov docusate sodium (COLACE) 100 mg capsule Take 1 capsule (100 mg total) by mouth in the morning and 1 capsule (100 mg total) before bedtime. Yes Not In System Ref Prov ergocalciferol (DRISDOL) 1,250 mcg (50,000 unit) capsule Take 1 capsule (50,000 Units total) by mouth in the morning. Give 1 capsule by mouth one time daily starting on the and ending on the every month.. Yes Not In System Ref Prov guaiFENesin (MUCINEX) 600 mg tablet extended release 12hr Take 1 tablet (600 mg total) by mouth every 12 (twelve) hours as needed (congestion). Yes Not In System Ref Prov isosorbide mononitrate (IMDUR) 30 mg 24 hr tablet Take 1 tablet (30 mg total) by mouth daily. 07/19/19 Yes Negro Elder MD levothyroxine sodium (LEVOTHYROXINE ORAL) Take 188 mcg by mouth in the morning. Yes Not In System Ref Prov losartan (COZAAR) 50 mg tablet Take 1 tablet (50 mg total) by mouth. Mon, Wed, Fri, Sun 10/07/22 Yes Not In System Ref Prov polyethylene glycol (MIRALAX) 17 gram/dose powder Take 17 g by mouth in the morning. Yes Not In System Ref Prov sennosides-docusate sodium (SENNA WITH DOCUSATE SODIUM) 8.6-50 mg Take 1 tablet by mouth in the morning and 1 tablet before bedtime. Yes Not In System Ref Prov sertraline (ZOLOFT) 100 mg tablet Take 2 tablets (200 mg total) by mouth in the morning. Yes Not In System Ref Prov sevelamer (RENVELA) 800 mg tablet Take 1 tablet (800 mg total) by mouth in the morning and 1 tablet (800 mg total) in the evening. Take with meals. Yes Not In System Ref Prov vitamin B tytyxv-D-XT-zinc cit (DIALYVITE 800 WITH ZINC 15) 0.8-15 mg tablet Take 1 tablet by mouth every morning. Yes Not In System Ref Prov albuterol (PROVENTIL HFA;VENTOLIN HFA) 90 mcg/actuation inhaler Inhale 2 puffs every 4 (four) hours as needed for wheezing or shortness of breath. Patient not taking: Reported on 04/21/2024 Not In System Ref Prov LANTUS SOLOSTAR U-100 INSULIN 100 unit/mL (3 mL) insulin pen Inject 12 Units under the skin in the morning. 06/26/23 Not In System Ref Prov midodrine (PROAMATINE) 5 mg tablet Take 1 tablet (5 mg total) by mouth. One tablet, one time daily, on days , , and Tue. Hold if SMP is greater than 110 Patient not taking: Reported on 04/21/2024 Not In System Ref Prov Past Medical History: Patient has a past medical history of Anemia, unspecified, Cellulitis, Cellulitis, unspecified, CHF (congestive heart failure) ([facility]), Chronic kidney disease, unspecified, Depression, Diabetes mellitus type 2, controlled ([facility]), Difficulty walking, DM (diabetes mellitus) ([facility]), MALHOTRA (dyspnea on exertion), Heart failure, systolic ([facility]), Hyperlipidemia, Hypertension, Hypothyroidism, Infectious viral hepatitis, Muscle weakness (generalized), Obesity, Obstructive chronic bronchitis without exacerbation ([facility]), Post-COVID syndrome resolved, and Stroke ([facility]). Past Surgical History: Patient has a past surgical history that includes Cholecystectomy; Appendectomy; and Tonsillectomy. Family History: Patient's family history includes Alzheimer's disease in her sister; Heart disease in her mother; Hypertension in her sister; Kidney disease in her brother and mother. Social History: Patient reports that she has quit smoking. She has never used smokeless tobacco. She reports that she does not drink alcohol and does not use drugs. ROS Review of Systems Constitutional: Negative for activity change, appetite change, chills and fatigue. HENT: Negative for congestion and rhinorrhea. Eyes: Negative for discharge and itching. Respiratory: Negative for apnea and shortness of breath. Cardiovascular: Negative for chest pain and leg swelling. Gastrointestinal: Negative for abdominal distention and abdominal pain. Genitourinary: Negative for difficulty urinating and genital sores. Musculoskeletal: Negative for arthralgias. Skin: Negative for color change. Allergic/Immunologic: Negative for environmental allergies. Neurological: Positive for syncope and weakness. Negative for dizziness and facial asymmetry. OBJECTIVE BP 150/67 Pulse 62 Temp 36.3 C (97.4 F) (Oral) Resp 18 Ht 162.6 cm (5' 4 ) Wt 101.1 kg (222 lb 14.2 oz) SpO2 100% BMI 38.26 kg/m Temp: [36.3 C (97.4 F)-36.7 C (98.1 F)] 36.3 C (97.4 F) Pulse: [57-73] 62 Resp: [18-20] 18 BP: (143-212)/(45-89) 150/67 SpO2: [85 %-100 %] 100 % O2 Device: Nasal cannula O2 Flow Rate (L/min): [2 L/min] 2 L/min No intake or output data in the 24 hours ending 04/21/24 1130 Physical Exam Physical Exam Constitutional: Appearance: Normal appearance. HENT: Head: Normocephalic. Nose: No congestion. Mouth/Throat: Pharynx: Oropharynx is clear. Eyes: Pupils: Pupils are equal, round, and reactive to light. Cardiovascular: Rate and Rhythm: Normal rate and regular rhythm. Pulses: Normal pulses. Heart sounds: Murmur heard. Pulmonary: Effort: Pulmonary effort is normal. Breath sounds: Normal breath sounds. Abdominal: General: Abdomen is flat. Bowel sounds are normal. Palpations: Abdomen is soft. Musculoskeletal: General: Normal range of motion. Cervical back: Normal range of motion and neck supple. Skin: General: Skin is warm and dry. Capillary Refill: Capillary refill takes less than 2 seconds. Neurological: General: No focal deficit present. Mental Status: She is alert and oriented to person, place, and time. Psychiatric: Mood and Affect: Mood normal. Medications Scheduled: atorvastatin, 80 mg, oral, Daily bumetanide, 0.5 mg, oral, Daily carvediloL, 3.125 mg, oral, HS docusate sodium, 100 mg, oral, BID [START ON 04/22/2024] heparin (porcine), 5,000 Units, subcutaneous, Q8H MARC insulin glargine, 12 Units, subcutaneous, Daily insulin lispro, 2-10 Units, subcutaneous, TID with meals insulin lispro, 2-8 Units, subcutaneous, Nightly isosorbide mononitrate, 30 mg, oral, Daily levothyroxine, 188 mcg, oral, Daily loratadine, 10 mg, oral, Daily [START ON 04/22/2024] losartan, 100 mg, oral, Daily polyethylene glycol, 17 g, oral, Daily sevelamer, 800 mg, oral, BID with meals sodium chloride, 3 mL, intravenous, Q12H MARC Infusions: As Needed: acetaminophen guaiFENesin prochlorperazine OR prochlorperazine OR prochlorperazine sennosides-docusate sodium sodium chloride Allergies: Amoxicillin and Doxycycline Labs Recent Results (from the past 24 hours) CBC auto differential Collection Time: 04/20/24 2:25 PM Result Value Ref Range White Blood Cells 6.7 4.0 - 11.0 X10E9/L RBC count 3.88 3.80 - 5.20 X10E12/L Hemoglobin 11.8 11.7 - 15.5 g/dL Hematocrit 37.6 35 - 47 % MCV 97 80 - 100 fL MCH 30.4 27 - 34 pg MCHC 31.4 (L) 32 - 36 g/dL RDW 21.4 (H) 11.5 - 15.0 % Platelets 145 (L) 150 - 450 X10E9/L MPV 8.6 7 - 12 fL % neutrophils 67.6 % % lymphocytes 21.6 % % monocytes 5.4 % % eosinophils 4.2 % % Basophils 1.2 % Neutrophils Absolute (A) 4.5 1.5 - 6.6 X10E9/L Lymphocytes Absolute 1.4 1.0 - 3.5 X10E9/L Monocytes Absolute 0.4 0 - 0.9 X10E9/L Eosinophils Absolute 0.3 0.0 - 0.4 X10E9/L Basophils Absolute 0.1 0.0 - 0.2 X10E9/L Comprehensive metabolic panel Collection Time: 04/20/24 2:25 PM Result Value Ref Range Sodium 133 (L) 134 - 146 mmol/L Potassium, Bld 3.6 3.5 - 5.0 mmol/L Chloride 95 (L) 98 - 109 mmol/L CO2 27 22 - 32 mmol/L Anion gap 11 5 - 15 mmol/L BUN 19 5 - 27 mg/dL Creatinine 3.14 (H) 0.40 - 1.00 mg/dL Glucose 183 (H) 65 - 99 mg/dL Calcium 8.6 8.5 - 10.5 mg/dL Total Protein 6.9 6.0 - 8.0 g/dL Albumin 3.3 3.2 - 5.3 g/dL Alkaline Phosphatase 91 39 - 130 U/L AST 15 0 - 41 U/L ALT 18 0 - 31 U/L Total bilirubin 0.3 0.3 - 1.2 mg/dL eGFR (CKD-EPI)non-race dependent 15 (L) >59 ml/min/1.73sq.m C-reactive protein Collection Time: 04/20/24 2:25 PM Result Value Ref Range CRP <0.5 0.000 - 0.744 mg/dL Lactate w/ Reflex Collection Time: 04/20/24 2:25 PM Result Value Ref Range Lactate w/ Reflex 1.1 0.4 - 2.0 mmol/L Magnesium Collection Time: 04/20/24 2:25 PM Result Value Ref Range Magnesium 1.7 (L) 1.8 - 2.6 mg/dL Troponin I, High Sensitivity Collection Time: 04/20/24 4:35 PM Result Value Ref Range Troponin I, High Sensitivity 37 (H) <16 ng/L Troponin I, High Sensitivity 1 Hour Collection Time: 04/20/24 5:40 PM Result Value Ref Range 1 Hour Trop I, High Sensitivity 37 (H) <16 ng/L Troponin I, High Sensitivity Collection Time: 04/20/24 6:40 PM Result Value Ref Range Troponin I, High Sensitivity 37 (H) <16 ng/L POCT Nursing Urine Macroscopic UA Collection Time: 04/20/24 11:49 PM Result Value Ref Range Specific gravity JOHN 1.025 1.003 - 1.035 Leukocyte esterase JOHN Trace (A) Negative^Negative Nitrite JOHN Negative Negative^Negative Ph 6.5 5.0 - 8.5 Protein JOHN >=300 (A) Negative^Negative mg/dL Urine glucose JOHN 500 (A) Negative^Negative mg/dL Ketones JOHN Negative Negative^Negative mg/dL Urobilinogen JOHN 0.2 <1.1 eu/dL Bilirubin JOHN Negative Negative^Negative Hemoglobin JOHN Trace (A) Negative^Negative Hemoglobin A1c Collection Time: 04/21/24 4:32 AM Result Value Ref Range Hemoglobin A1C 8.1 (H) 4.4 - 5.6 % Average glucose 186 mg/dL Thyroid profile includes TSH FT4 Collection Time: 04/21/24 4:32 AM Result Value Ref Range TSH 29.36 (H) 0.49 - 4.67 uIU/mL T4, free 0.49 (L) 0.61 - 1.60 ng/dL Vitamin B12 Collection Time: 04/21/24 4:32 AM Result Value Ref Range Vitamin B-12 351 180 - 914 pg/mL Folate Collection Time: 04/21/24 4:32 AM Result Value Ref Range Folate 6.3 >5.8 ng/mL Bedside Glucose *Place/Obtain serum glucose if >500(>600 MRH) per glucometer. Collection Time: 04/21/24 7:39 AM Result Value Ref Range Bedside glucose 162 (H) 65 - 99 mg/dL Phosphorus Collection Time: 04/21/24 10:50 AM Result Value Ref Range Phosphorus 4.4 2.4 - 4.9 mg/dL Radiology CT brain without contrast Result Date: 04/20/2024 Narrative: EXAM: CT BRAIN WO CONT CLINICAL INFORMATION: Mental status change, unknown cause. TECHNIQUE: CT head was performed without contrast utilizing 2.5 mm axial reconstruction with images reviewed in bone and brain windows. Automated exposure control was utilized. COMPARISON: 10/27/2022 FINDINGS: There is no evidence for an acute intra or extra-axial hemorrhage. There is a background of patchy and confluent low attenuation within the white matter, most commonly attributable to the sequela of chronic ischemic small vessel disease. The callaway-white matter differentiation is preserved. There is no intracranial mass effect. The ventricles are proportional to the overall brain volume without evidence for outflow obstruction. There is no shift of the midline structures and the basal cisterns are widely patent. There are no depressed or widely calvarial fractures. The paranasal sinuses are well aerated. The mastoids are clear. IMPRESSION: 1. No acute intracranial abnormalities. 2. White matter changes, most commonly attributable to the sequela of chronic ischemic small vessel disease. 3. Please note, hyperacute ischemia can remain occult on CT. If there is persistent concern for acute ischemia, further evaluation with a dedicated MRI is recommended as clinically indicated. All CT scans at this facility use dose modulation, iterative reconstruction, and/or weight based dosing when appropriate to reduce radiation dose to as low as reasonably achievable. Finalized by Armando Milton MD on 04/20/2024 3:58 PM HOSPITAL PROBLEM LIST Principal Problem: Episode of syncope Active Problems: Class 3 severe obesity due to excess calories in adult ([facility] [place] [place]) Essential hypertension Hypothyroidism Diabetes type 2, controlled ([facility] [place] [place]) ESRD (end stage renal disease) on dialysis ([facility] [place] [place]) ASSESSMENT & PLAN Episode of syncope Syncopal episode after dialysis Check orthostatic blood pressures Get Echo EKG reviewed Neurology consulted Continuous telemetry Essential hypertension Well controlled on Coreg Hypothyroidism TSH 29. 6 Increase Synthroid to 200 mcg daily Diabetes type 2, controlled ([facility] [place] [place]) Lantus 12 units daily Accu-Cheks AC and HS with sliding scale coverage ESRD (end stage renal disease) on dialysis ([facility] [facility] [place] [place] Tuesday dialysis Nephrology consulted Class 3 severe obesity due to excess calories in adult ([facility] [place] [place]) Admission orders placed and home medications reconciled. DVT prophylaxis: SCD's and heparin PT/OT to evaluate and treat. DC planning: [facility] [place] Mejia 04/21/2024 11:30 AM [facility] (all facilities): Message rounding KYLE in [employer] or page through [employer]. 7PM-7AM ([facility]): Page Night KYLE, [phone]. 7PM-7AM ([place], [place], [place], [place] and [facility] Rehab): Page on-call KYLE, . IRINA Blackman 04/21/24 9999 I have seen and evaluated the patient, and have reviewed the history above and agree. I have repeated the flores portions of the physical exam and concur with the KYLE findings. I have reviewed all laboratory findings and imaging reports/films. I agree with the plan as noted above Dr Joseph Pleitez MD, MRCP 04/21/2024 5:26 PM documented in this encounter [facility] 04-21-2024 Progress note Formatting of t his note is different from the original. Physical Therapy Evaluation Discharge Recommendations PT Recommendations: Extended Care Facility Therapy Plan Need for skilled Physical Therapy to address deficits in functional mobility due to a status decline resulting from current medical status PT Treatment/Interventions: LE strengthening/ROM, Bed mobility PT Frequency: 2-3days/week PT Duration: 10 days Patient Response to Treatment: Tolerated evaluation without adverse reaction Assessment Patient Assessment Patient Response to Treatment: Tolerated evaluation without adverse reaction Mood/Affect: Appropriate for circumstances Rehab Prognosis: Fair 6 Clicks: Basic Mobility Turning from your back to your side while in a flat bed without using bed rails?: Total Moving from lying on your back to sitting on side of flat bed without using bed rails?: Total Moving to and from bed to a chair (including w/c)?: Total Standing up from a chair using your arms (e.g. w/c or bedside chair)?: Total To walk in hospital room?: Total Climbing 3-5 steps with a railing?: Total Scoring 6 Clicks: Basic Mobility Raw Score: 6 [facility] G Code Modifier: CN Past Medical History: Diagnosis Date Anemia, unspecified Cellulitis Cellulitis, unspecified CHF (congestive heart failure) ([facility]) Chronic kidney disease, unspecified Depression Diabetes mellitus type 2, controlled ([facility]) Difficulty walking DM (diabetes mellitus) ([facility]) MALHOTRA (dyspnea on exertion) Heart failure, systolic ([facility]) Hyperlipidemia Hypertension Hypothyroidism Infectious viral hepatitis Muscle weakness (generalized) Obesity Obstructive chronic bronchitis without exacerbation ([facility]) Post-COVID syndrome resolved Stroke ([facility] [place] [place]) Past Surgical History: Procedure Laterality Date APPENDECTOMY CHOLECYSTECTOMY TONSILLECTOMY Pt admitted after syncopal episode during dialysis. Pt agreeable to PT. Visit RN Communication: Yes Medical Record Reviewed: Yes PT Type of Visit: Evaluation Precautions Activity: early mobility guidelines Oxygen Used: pt on 2L via nasal cannula Subjective Physical Therapy Comments: Pt agreeable to PT. Pt reports using adrian lift to transfer to/from . Reports using wheelchair for mobility Pain Assessment Pain Assessment: No/denies pain Home Living Type of Home: Facility Prior Function Lives With: Other (Comment) (ECF) Level of Mobility: Needs assistance with ADLs or functional transfers or gait Transfers: Total assist (adrian) Mobility: (propels wheelchair for mobility) Bath: Mod assist (pt reports she assists with UE bathing/dressing) Dressing: Mod assist Grooming: Mod assist Homemaking Assistance: Needs assistance (pt has assist for all homemaking tasks) Hearing / Speech / Vision Hearing: Within Functional Limits Speech: Within Functional Limits Cognition Overall Cognitive Status: Within Functional Limits Orientation Level: Oriented X4 Bed Mobility Rolling: Max assist, Right, Left Supine to Sit: Unable to assess Transfers Other: deferred, pt using adrian FANS CLERK Gait Other: deferred, pt using adrian for transfers, non amb FANS CLERK, uses WC for mobility RLE Assessment: Exceptions to WFL (strength 3-/5, limited hip/knee ROM) LLE Assessment: Exceptions to WFL (strength 3-/5, limited hip/knee ROM) Activity Tolerance Endurance: Tolerates <30 minutes activity WITHOUT vital sign changes Plan Physical Therapy Care Plan Physical Therapy Care Plan (Active) Template: PT - Physical Therapy Problem: Bed Mobility Dates: Start: 04/21/24 Disciplines: PT Goal: Patient will perform bed mobility with Minimum Assist Dates: Start: 04/21/24 Expected End: 05/01/24 Disciplines: PT Problem: Strength Dates: Start: 04/21/24 Disciplines: PT Goal: Improve strength Dates: Start: 04/21/24 Expected End: 05/01/24 Description: Of extremity/ location: bilat LE To facilitate: improved mobility Disciplines: PT Physical Therapy Care Plan (Resolved) There are no resolved problems. Principal Problem: Episode of syncope [facility] 04-21-2024 Consult note Formatting of th is note is different from the original. NEPHROLOGY CONSULT NOTE Date of Admission: 04/21/2024 1:50 AM Reason for Consult: Management of hemodialysis dependent end-stage renal disease. PCP: NO PCP, NO PCP History of Present Illness: Janay Schilling is a 74 y.o. 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 She is a resident of [facility]. She has had previous episodes of presyncope. Blood pressure at presentation was 155/89 mmHg with temperature 97.9 F and oxygen saturation 99% on room air. Today she feels better and denies headache or dizziness during this encounter. PMH and PSH: PMH: Past Medical History: Diagnosis Date Anemia, unspecified Cellulitis Cellulitis, unspecified CHF (congestive heart failure) ([facility] [place] [place]) Chronic kidney disease, unspecified Depression Diabetes mellitus type 2, controlled ([facility] [place] [place]) Difficulty walking DM (diabetes mellitus) ([facility] [place] [place]) MALHOTRA (dyspnea on exertion) Heart failure, systolic ([facility] [place] [place]) Hyperlipidemia Hypertension Hypothyroidism Infectious viral hepatitis Muscle weakness (generalized) Obesity Obstructive chronic bronchitis without exacerbation ([facility] [place] [place]) Post-COVID syndrome resolved Stroke ([facility] [place] [place]) PSH: Past Surgical History: Procedure Laterality Date APPENDECTOMY CHOLECYSTECTOMY TONSILLECTOMY * No surgery found * Social History: Social History Socioeconomic History Marital status: Single Spouse name: Not on file Number of children: Not on file Years of education: Not on file Highest education level: Not on file Occupational History Not on file Tobacco Use Smoking status: Former Smokeless tobacco: Never Vaping Use Vaping status: Never Used Substance and Sexual Activity Alcohol use: No Drug use: No Sexual activity: Defer Other Topics Concern Caffeine Use Yes Social History Narrative Not on file Social Drivers of Health Financial Resource Strain: Not on file Food Insecurity: No Food Insecurity (01/12/2024) Hunger Screening Food Insecurity - Worry: Never True Food Insecurity - Inability: Never True Transportation Needs: No Transportation Needs (09/01/2023) PRAPARE - Transportation Lack of Transportation (Medical): No Lack of Transportation (Non-Medical): No Physical Activity: Not on file Stress: Not on file Social Connections: Not on file Interpersonal Safety: Not At Risk (09/01/2023) Humiliation, Afraid, Rape, and Kick questionnaire Fear of Current or Ex-Partner: No Emotionally Abused: No Physically Abused: No Sexually Abused: No Housing Instability: Low Risk (09/01/2023) Housing Instability Housing Instability: No Family History: Family History Problem Relation Age of Onset Heart disease Mother Kidney disease Mother Alzheimer's disease Sister Hypertension Sister Kidney disease Brother Breast cancer Neg Hx Allergies: Allergies Allergen Reactions Amoxicillin Doxycycline Home Meds: Medications Prior to Admission Medication Sig Dispense Refill Last Dose/Taking acetaminophen (TYLENOL) 500 mg tablet Take 1 tablet (500 mg total) by mouth every 4 (four) hours as needed for pain. Past Week atorvastatin (LIPITOR) 40 mg tablet Take 2 tablets (80 mg total) by mouth in the morning. 04/20/2024 Morning bumetanide (BUMEX) 0.5 mg tablet Take 1 tablet (0.5 mg total) by mouth daily. 30 tablet 0 04/20/2024 Morning carvediloL (COREG) 3.125 mg tablet Take 1 tablet (3.125 mg total) by mouth once daily at bedtime. Hold for HR less than 60 04/20/2024 Evening cetirizine (ZyrTEC) 10 mg tablet Take 1 tablet (10 mg total) by mouth in the morning. 04/20/2024 Morning docusate sodium (COLACE) 100 mg capsule Take 1 capsule (100 mg total) by mouth in the morning and 1 capsule (100 mg total) before bedtime. 04/20/2024 Morning ergocalciferol (DRISDOL) 1,250 mcg (50,000 unit) capsule Take 1 capsule (50,000 Units total) by mouth in the morning. Give 1 capsule by mouth one time daily starting on the and ending on the every month.. 04/20/2024 Morning guaiFENesin (MUCINEX) 600 mg tablet extended release 12hr Take 1 tablet (600 mg total) by mouth every 12 (twelve) hours as needed (congestion). Past Week isosorbide mononitrate (IMDUR) 30 mg 24 hr tablet Take 1 tablet (30 mg total) by mouth daily. 04/20/2024 Morning levothyroxine sodium (LEVOTHYROXINE ORAL) Take 188 mcg by mouth in the morning. 04/20/2024 Morning losartan (COZAAR) 50 mg tablet Take 1 tablet (50 mg total) by mouth. Mon, Wed, Fri, Sun 04/20/2024 Morning polyethylene glycol (MIRALAX) 17 gram/dose powder Take 17 g by mouth in the morning. Past Week sennosides-docusate sodium (SENNA WITH DOCUSATE SODIUM) 8.6-50 mg Take 1 tablet by mouth in the morning and 1 tablet before bedtime. Past Week sertraline (ZOLOFT) 100 mg tablet Take 2 tablets (200 mg total) by mouth in the morning. 04/20/2024 Morning sevelamer (RENVELA) 800 mg tablet Take 1 tablet (800 mg total) by mouth in the morning and 1 tablet (800 mg total) in the evening. Take with meals. 04/20/2024 Morning vitamin B drwanv-R-QD-zinc cit (DIALYVITE 800 WITH ZINC 15) 0.8-15 mg tablet Take 1 tablet by mouth every morning. 04/20/2024 Morning albuterol (PROVENTIL HFA;VENTOLIN HFA) 90 mcg/actuation inhaler Inhale 2 puffs every 4 (four) hours as needed for wheezing or shortness of breath. (Patient not taking: Reported on 04/21/2024) Unknown LANTUS SOLOSTAR U-100 INSULIN 100 unit/mL (3 mL) insulin pen Inject 12 Units under the skin in the morning. midodrine (PROAMATINE) 5 mg tablet Take 1 tablet (5 mg total) by mouth. One tablet, one time daily, on days , , and Tue. Hold if SMP is greater than 110 (Patient not taking: Reported on 04/21/2024) Unknown Inpatient Meds: atorvastatin, 80 mg, oral, Daily bumetanide, 0.5 mg, oral, Daily carvediloL, 3.125 mg, oral, HS docusate sodium, 100 mg, oral, BID [START ON 04/22/2024] heparin (porcine), 5,000 Units, subcutaneous, Q8H [facility] insulin glargine, 12 Units, subcutaneous, Daily insulin lispro, 2-10 Units, subcutaneous, TID with meals insulin lispro, 2-8 Units, subcutaneous, Nightly isosorbide mononitrate, 30 mg, oral, Daily levothyroxine, 188 mcg, oral, Daily loratadine, 10 mg, oral, Daily losartan, 50 mg, oral, Daily polyethylene glycol, 17 g, oral, Daily sevelamer, 800 mg, oral, BID with meals sodium chloride, 3 mL, intravenous, Q12H [facility] Inpatient Infusion Meds: Nutrition: Dietary Orders (From admission, onward) Start Ordered 04/21/24 0236 Adult diet Regular Texture; Consistent Carb 210 grams (1800 kcal); Cardiac Diet effective now Question Answer Comment Diet Type: Regular Texture Carbohydrate Modifiers: Consistent Carb 210 grams (1800 kcal) Other Modifiers: Cardiac 04/21/24 0238 Review of Systems: Constitutional: No fevers chills or night sweats no weight loss Eyes: No scleral icterus no conjunctiva pallor is no visual changes no blurry vision Ears, nose, mouth, throat, and face: No ear pain no mucositis no sore throat Respiratory: No shortness of breath no hemoptysis, no cough, no wheezing Cardiovascular: No chest pain, no palpitations Gastrointestinal: No nausea or vomiting no abdominal pain, no abdominal cramping, normal bowel movements, no diarrhea or constipation Integument/breast: No rashes, and no suspicious lesions or ecchymosis Hematologic/lymphatic: No easy bruising or bleeding, and noted no enlarged lymph nodes Neurological: No headaches, no gait imbalance, no cognitive changes, no focal motor weakness Behavioral/Psych: No significant anxiety or depression no hallucinations All other systems reviewed and are negative. Physical Exam: Admission Weight: Weight: 101.1 kg (222 lb 14.2 oz) Vitals: Vitals: 04/21/24 0201 04/21/24 0239 BP: 180/46 Pulse: 67 Resp: 18 Temp: 36.7 C (98.1 F) TempSrc: Oral SpO2: 100% Weight: 101.1 kg (222 lb 14.2 oz) 101.1 kg (222 lb 14.2 oz) Height: 162.6 cm (5' 4 ) INTAKE/OUTPUT: No intake or output data in the 24 hours ending 04/21/24 0630 General Appearance: Healthy, alert, active, cooperative, and in no distress Head: Normocephalic, without obvious abnormality, atraumatic Eyes: conjunctivae/corneas clear. ENT: ENT exam normal, no neck nodes or sinus tenderness Neck: no adenopathy, no carotid bruit, no JVD Lungs: clear to auscultation bilaterally Heart: regular rate and rhythm, S1, S2 normal, no murmur, click, rub or gallop Abdomen: soft, non-tender; bowel sounds normal; no masses, no organomegaly Extremities: extremities normal, atraumatic, no cyanosis or edema Skin: Skin color, texture, turgor normal. No rashes or lesions Neurologic: no focal weakness. Can move all extremities Labs: Results from last 7 days Lab Units 04/20/24 1425 POTASSIUM mmol/L 3.6 CHLORIDE mmol/L 95* CO2 mmol/L 27 BUN mg/dL 19 CREATININE mg/dL 3.14* CALCIUM mg/dL 8.6 Results from last 7 days Lab Units 04/20/24 1425 WBC X10E9/L 6.7 HEMOGLOBIN g/dL 11.8 HEMATOCRIT % 37.6 PLATELETS X10E9/L 145* Results from last 7 days Lab Units 04/20/24 1425 MAGNESIUM mg/dL 1.7* Lab Results Component Value Date CALCIUM 8.6 04/20/2024 Lab Results Component Value Date IRON 41 (L) 07/13/2019 TIBC 361 07/13/2019 Assessment/plan: 1. End-stage renal disease - we will maintain Tuesday, Tuesday and Tuesday hemodialysis schedule. Renal diet- 2 gram sodium,2 gram potassium,1500 ml fluid restriction,1800 KCal,1 gram phosphorus and 1.2 gram/kg/day high biologic value protein. 2. Syncope - rule out neurocardiogenic factors. Will also check orthostatics. 3. Anemia of chronic kidney disease - hemoglobin 11.8 g/dL is within target range. 4. Hypomagnesemia - will replace with IV magnesium sulfate 2 g. 5. Systemic hypertension - blood pressure control is suboptimal. Will increase losartan to 100 mg p.o. daily. Prognosis is guarded. Thank you very much for the courtesy and confidence of this consultation. - Tiffanie Orosco MD 04/21/24 9:52 AM Attending furnace mason Prognosis is guarded. Thank you very much for the courtesy and confidence of this consultation. TIFFANIE OROSCO MD FACP Attending Clinical Chimney Builder ANY QUESTIONS FEEL FREE TO CALL: 1. OFFICE [phone] [facility] 04-21-2024 Plan of care note Problem: Urinary Incontinence Goal: Perineal skin integrity is maintained or improved Description: INTERVENTIONS 1. Assess genitourinary system, perineal skin, labs (urinalysis), and history of incontinence to include past management, aggravating, and alleviating factors 2. Keep skin clean and dry 3. Apply skin protectant 4. Develop skin care regimen 5. Provide privacy when changing patients incontinence device to maintain their dignity 6. Consider placing an indwelling catheter 7. Collaborate with interdisciplinary team and initiate plans and interventions as needed Outcome: Progressing Note: Evaluation of progress towards goal: diminished urine output, HD pt, ex cath applied [facility] 02-24-2024 Hospital Discharg e instructions Additional Instructions See if you can have dialysis done at a slower rate which may help prevent chest pain and syncope or presyncopal symptoms. Follow-up with your PCP for recheck in the next 2 to 3 days. [facility] Work Phone: 09-03-2023 Nurse Note Pt discharged to [facility] with all personal belongings. Information packet sent with [facility] [employer]. Pt left unit and hospital grounds via stretcher with [employer]. Lavonne Prince RN [facility] 09-03-2023 Nurse Note Pt discharged to [facility] with all personal belongings. Information packet sent with [employer]. Pt left unit and hospital grounds via stretcher with [employer]. Lavonne Prince RN Membership Sales Manager spoke with Dr Masterson office. Plan is to get dialysis treatment 09/01. Hgb recheck in AM 5 as well. Hotel Staff Member notified of plan for dialysis. documented in this encounter [facility] 09-03-2023 Hospital Discharg e instructions Lavonne Prince RN - 09/03/2023 1:48 PM EDT No weight bearing restrictions, activity as tolerated. Lavonne Prince RN - 09/03/2023 1:48 PM EDT Regular Texture. Low phosphorus, low potassium, high protein. The following attachments cannot be sent through Care Everywhere.End Stage Kidney Disease Discharge Instructions (Senegalese)Anemia Caused by Low Iron Discharge Instructions, Adult ([place]egalese)High Blood Sugar Discharge Instructions, Adult ([place]e)Type 2 Diabetes Discharge Instructions ([place]e)documented in this encounter [facility] 09-03-2023 Progress note Formatting of t his note might be different from the original. DISCHARGE PLANNING NOTE CRF to [place] [facility] ([facility]) (P# ; F# ) [facility] 09-03-2023 Miscellaneous Notes DISCHARGE PLANNING NOTE CRF to [place] [facility] ([facility]) (P# ; F# ) DISCHARGE PLANNING NOTE informed of discharge. [facility] was tasked with sending orders and arranging transport. DAVIN did inform [place] that pt will be returning today. DAVIN also notified pt's sister Марина of discharge. DISCHARGE PLANNING NOTE [facility]. Confirmed in [facility]. Problem: Pain Goal: Patient goal is pain score less than 5, able to rest, and participant in treatment plan as appropriate Description: INTERVENTIONS: 1. Encourage patient or legal u.s. representative to report early pain and ask for pain medicine when needed 2. Assess pain using appropriate pain scale and include the scale used when documenting 3. Administer analgesics based on type and severity of pain and evaluate response within appropriate time frame 4. Implement non-pharmacological measures as appropriate and evaluate response 5. Consider cultural and social influences on pain and pain management 6. Notify LIP if interventions ineffective or patient reports new pain 7. Monitor vital signs including pulse ox, end-tidal CO2 based on pain intervention 8. Reassess pain per policy 9. Teach patient or legal u.s. representative interventions for comforting Outcome: Progressing Note: Evaluation of progress towards goal: Pt able to report pain according to 0/10 pain scale. Medicating patient for pain per orders. Comfort maintained. Will continue to monitor. Problem: Safety Goal: Patient will be injury free during hospitalization Description: INTERVENTIONS: 1. Assess patient's risk for falls and implement fall prevention plan of care per policy 2. Provide and maintain a safe environment 3. Proper use of double Identifiers 4. Medication administration using the 5 rights 5. Hand hygiene 6. Specimens are labeled at the bedside 7. Instruct patient/ patient u.s. representative about use of safety devices 8. Include patient/ patient u.s. representative in decisions related to safety Outcome: Progressing Note: Evaluation of progress towards goal: Safety measures initiated/maintained. Pt remains safe from harm/injury/falls. Will continue to monitor. Problem: Infection Goal: Absence of infection during hospitalization Description: Interventions: 1. Assess and monitor for signs and symptoms of infection 2. Monitor lab/diagnostic results 3. Monitor all insertion sites i.e., indwelling lines, tubes and drains 4. Monitor endotracheal (as able) and nasal secretions for changes in amount and color 5. Administer medications as ordered 6. Instruct and encourage patient and family to use good hand hygiene technique 7. Identify and instruct patient/patient u.s. representative in use of appropriate isolation precautions for identified infection/symptoms 8. Provide and discuss with patient/patient u.s. representative on educational MDRO sheet 9. Encourage and monitor nutritional status daily and consult computer network support specialist if indicated 10. Implement neutropenic guidelines as needed 11. Review exposure to history of communicable disease and recent travel history on admission 12. Encourage annual influenza vaccine 13. Encourage pneumonia vaccine Outcome: Progressing Note: Evaluation of progress towards goal: Patient VS WNL, remains afebrile for shift. Labs monitored per orders, hand hygiene encouraged. No S/S of infection at this time. Will continue to monitor. Problem: Knowledge Deficit Goal: Patient/patient u.s. representative demonstrates understanding of disease process, treatment plan, medications, and discharge instructions Description: INTERVENTIONS 1. Complete learning assessment and assess knowledge base 2. Provide teaching at level of understanding 3. Provide teaching via preferred learning method(s) Outcome: Progressing Note: Evaluation of progress towards goal: Plan of care discussed with pt throughout shift. Updated on all orders and changes. Verbalizes understanding and all questions/concerns addressed. Problem: Discharge Planning Goal: Discharge to post-acute care, other facility, or home with appropriate resources Description: Patient's goal is: INTERVENTIONS 1. Conduct assessment to determine patient/family and health care team treatment goals, and need for post-acute services based on payer coverage, community resources, and patient preferences, and barriers to discharge 2. Coordinate with Social work, Care Navigation, and Utilization Review to arrange appropriate level of services according to patient's needs based on patient preference and payer coverage in collaboration with the physician and health care team 3. Address psychosocial, clinical, and financial barriers to discharge as identified in assessment in conjunction with the patient/family and health care team 4. Consult appropriate ancillary services (i.e.. PT/OT/ST, etc) as needed 5. Communicate with and update the patient/family, physician, and health care team regarding progress on the discharge plan 6. Identify discharge learning needs (meds, wound care, etc). 7. Arrange for needed discharge transportation as appropriate Outcome: Progressing Note: Evaluation of progress towards goal: Discharge planning in progress. Discussed daily at DTR[facility]. Problem: Potential for Compromised Skin Integrity Goal: Skin integrity is maintained or improved Description: Patient's goal is: INTERVENTIONS 1. Perform initial skin assessment on admission and as needed 2. Turn patient every 2 hours and PRN 3. Relieve pressure to bony prominences 4. Avoid shearing 5. Keep skin clean and dry 6. Alternate a full bath with partial baths for elderly 7. Apply lotion/moisturizer on skin 8. Monitor patient's hygiene practices 9. Float heels 10. Collaborate with interdisciplinary team and initiate plans and interventions as needed Outcome: Progressing Goal: Patient's nutritional intake is adequate Description: Patient's goal is: INTERVENTIONS 1. Assess and monitor food intake and supplements, patient food preferences, nausea, vomiting, labs, oral cavity (gums, teeth, tongue, mucosa), proper denture fit, and cultural beliefs 2. Monitor for signs of hypoglycemia and hyperglycemia 3. Collaborate with interdisciplinary team and initiate plan and interventions as ordered 4. Monitor patient's weight 5. Assist patient with meals/food selection 6. Assist patient with eating 7. Allow adequate time for meals 8. Provide pleasant environment during mealtime 9. Increase social contact during mealtimes 10. Plan activities to conserve energy 11. Encourage/perform oral hygiene as appropriate 12. Encourage patient to take dietary supplement as ordered 13. Collaborate with clinical computer network support specialist 14. Include patient/ patient's u.s. representative in decisions related to nutrition Outcome: Progressing Problem: Urinary Incontinence Goal: Perineal skin integrity is maintained or improved Description: INTERVENTIONS 1. Assess genitourinary system, perineal skin, labs (urinalysis), and history of incontinence to include past management, aggravating, and alleviating factors 2. Keep skin clean and dry 3. Apply skin protectant 4. Develop skin care regimen 5. Provide privacy when changing patients incontinence device to maintain their dignity 6. Consider placing an indwelling catheter 7. Collaborate with interdisciplinary team and initiate plans and interventions as needed Outcome: Progressing Problem: Moderate - High Risk Fall Score Description: Mejia Fall Score of =/> 25 or indicated by [facility] Assessment Goal: Patient should be free from fall Description: Interventions: 1. [place] to environment 2. Hourly rounds addressing the 4 P's (Pain, Positioning, Possessions, Potty) 3. Clear area of hazards (spills, clutter, electrical cords, unnecessary equipment) 4. Place equipment (bed & TV controls, call light, phone, urinal) within reach 5. Encourage patient to wear glasses and hearing aides as appropriate 6. Maintain bed in lowest position 7. Lock wheels on bed/wheelchair 8. Provide adequate lighting, including night light 9. Assess need for additional bedding, food/fluids, pain med's prior to sleep/routinely 10. Provide gripper slippers or personal non-skid footwear 11. Teach patient and patient u.s. representative to maintain environment for safety and engage in all aspects of fall prevention program 12. Remind patient to call for help before getting out of bed 13. Initiate bed/chair/exit alarms supportive devices as appropriate, (chair wedge, no-skid floor mat, raised edge mattress, hip protectors) 14. Locate patient bed assignment for optimal visualization 15. Evaluate and identify Safe Patient Handling Equipment needs 16. Provide supervision when out of bed or chair 17. Utilize gait belt as needed to assist with ambulation 18. Place adaptive equipment (cane, walker) within reach 19. Request patient u.s. representative bring adaptive equipment/mobility aids from home or obtain and provide as needed 20. Consult pharmacy regarding effects of med's affecting mobility, cognition, and alternatives 21. Obtain physician order for PT if risk factors associated with mobility are present 22. Obtain physician order for OT as appropriate 23. Utilize diversional activities 24. Educate patient and patient u.s. representative how to maintain a safe environment during visitation times (notify nurse prior to leaving bedside) 25. Consider appropriateness of medical or non-medical pathologist 26. Set up voiding schedule as appropriate (every 2 hours) Outcome: Progressing Note: Evaluation of progress towards goal: Bed in low position and locked, non slip footwear on when out of bed, call light within reach, hourly rounding to address patients needs, pt instructed to use call light for any needs/assistance. Pt free from falls/injury at this time. Safety maintained. Problem: Glucose Imbalance Goal: Clinical indication of glucose balance is achieved Description: Patient's goal is: INTERVENTIONS 1. Monitor blood glucose levels as ordered 2. Administer medications as ordered 3. Notify physician of ineffective treatment plan Outcome: Progressing Note: Evaluation of progress towards goal: Pt educated on hyperglycemia/hypoglycemia symptoms and appropriate corrective actions, computer network support specialist referral as needed. Goal: Patient's discharge needs are met Description: Patient's goal is: INTERVENTIONS 1. Assess patient for self-management skills 2. Encourage participation in diabetes management 3. Identify potential discharge barriers on admission and throughout hospital stay 4. Involve patient/S.O. in discharge planning process 5. Communicate referral to family life educator as appropriate 6. Communicate referral to computer network support specialist as appropriate 7. Collaborate with case management/social secretary for discharge needs Outcome: Progressing Note: Evaluation of progress towards goal: Discharge planning in progress. Discussed daily at [facility]TR[facility]. Problem: Pain Goal: Patient goal is pain score less than 4, able to rest, and participant in treatment plan as appropriate Description: INTERVENTIONS: 1. Encourage patient or legal u.s. representative to report early pain and ask for pain medicine when needed 2. Assess pain using appropriate pain scale and include the scale used when documenting 3. Administer analgesics based on type and severity of pain and evaluate response within appropriate time frame 4. Implement non-pharmacological measures as appropriate and evaluate response 5. Consider cultural and social influences on pain and pain management 6. Notify LIP if interventions ineffective or patient reports new pain 7. Monitor vital signs including pulse ox, end-tidal CO2 based on pain intervention 8. Reassess pain per policy 9. Teach patient or legal u.s. representative interventions for comforting Note: Evaluation of progress towards goal: Pt reports pain. Continuing scheduled meds and offering PRN pain meds. Will continue to monitor. Problem: Safety Goal: Patient will be injury free during hospitalization Description: INTERVENTIONS: 1. Assess patient's risk for falls and implement fall prevention plan of care per policy 2. Provide and maintain a safe environment 3. Proper use of double Identifiers 4. Medication administration using the 5 rights 5. Hand hygiene 6. Specimens are labeled at the bedside 7. Instruct patient/ patient u.s. representative about use of safety devices 8. Include patient/ patient u.s. representative in decisions related to safety Note: Evaluation of progress towards goal: Pt remains free from falls and safety maintained. Bed alarm on and nonskid footwear applied. Call light, bedside table, and personal belongings within reach. Pt educated on fall risk/ prevention. Encouraged pt to call out for assistance as needed. Will continue to monitor. Problem: Infection Goal: Absence of infection during hospitalization Description: Interventions: 1. Assess and monitor for signs and symptoms of infection 2. Monitor lab/diagnostic results 3. Monitor all insertion sites i.e., indwelling lines, tubes and drains 4. Monitor endotracheal (as able) and nasal secretions for changes in amount and color 5. Administer medications as ordered 6. Instruct and encourage patient and family to use good hand hygiene technique 7. Identify and instruct patient/patient u.s. representative in use of appropriate isolation precautions for identified infection/symptoms 8. Provide and discuss with patient/patient u.s. representative on educational MDRO sheet 9. Encourage and monitor nutritional status daily and consult computer network support specialist if indicated 10. Implement neutropenic guidelines as needed 11. Review exposure to history of communicable disease and recent travel history on admission 12. Encourage annual influenza vaccine 13. Encourage pneumonia vaccine Outcome: Progressing Note: Evaluation of progress towards goal: Pt shows no signs of infection. Will continue to monitor. Problem: Knowledge Deficit Goal: Patient/patient u.s. representative demonstrates understanding of disease process, treatment plan, medications, and discharge instructions Description: INTERVENTIONS 1. Complete learning assessment and assess knowledge base 2. Provide teaching at level of understanding 3. Provide teaching via preferred learning method(s) Outcome: Progressing Note: Evaluation of progress towards goal: patient/patient u.s. representative demonstrates understanding of disease process, treatment plan, medications, and discharge instructions Progressing Not Progressing Adequate for Discharge Completed Problem: Discharge Planning Goal: Discharge to post-acute care, other facility, or home with appropriate resources Description: Patient's goal is: INTERVENTIONS 1. Conduct assessment to determine patient/family and health care team treatment goals, and need for post-acute services based on payer coverage, community resources, and patient preferences, and barriers to discharge 2. Coordinate with Social work, Care Navigation, and Utilization Review to arrange appropriate level of services according to patient's needs based on patient preference and payer coverage in collaboration with the physician and health care team 3. Address psychosocial, clinical, and financial barriers to discharge as identified in assessment in conjunction with the patient/family and health care team 4. Consult appropriate ancillary services (i.e.. PT/OT/ST, etc) as needed 5. Communicate with and update the patient/family, physician, and health care team regarding progress on the discharge plan 6. Identify discharge learning needs (meds, wound care, etc). 7. Arrange for needed discharge transportation as appropriate Outcome: Progressing Note: Evaluation of progress towards goal: Discharge to post-acute care, other facility, or home with appropriate resources Progressing Not Progressing Adequate for Discharge Completed Problem: Potential for Compromised Skin Integrity Goal: Skin integrity is maintained or improved Description: Patient's goal is: INTERVENTIONS 1. Perform initial skin assessment on admission and as needed 2. Turn patient every 2 hours and PRN 3. Relieve pressure to bony prominences 4. Avoid shearing 5. Keep skin clean and dry 6. Alternate a full bath with partial baths for elderly 7. Apply lotion/moisturizer on skin 8. Monitor patient's hygiene practices 9. Float heels 10. Collaborate with interdisciplinary team and initiate plans and interventions as needed Outcome: Progressing Note: Evaluation of progress towards goal: Pt shows no signs of skin breakdown. Pt able to turn self, and encouraging Q2h turns. Linens remain clean and dry. Will continue to monitor. Goal: Patient's nutritional intake is adequate Description: Patient's goal is: INTERVENTIONS 1. Assess and monitor food intake and supplements, patient food preferences, nausea, vomiting, labs, oral cavity (gums, teeth, tongue, mucosa), proper denture fit, and cultural beliefs 2. Monitor for signs of hypoglycemia and hyperglycemia 3. Collaborate with interdisciplinary team and initiate plan and interventions as ordered 4. Monitor patient's weight 5. Assist patient with meals/food selection 6. Assist patient with eating 7. Allow adequate time for meals 8. Provide pleasant environment during mealtime 9. Increase social contact during mealtimes 10. Plan activities to conserve energy 11. Encourage/perform oral hygiene as appropriate 12. Encourage patient to take dietary supplement as ordered 13. Collaborate with clinical computer network support specialist 14. Include patient/ patient's u.s. representative in decisions related to nutrition Outcome: Progressing Note: Evaluation of progress towards goal: Pt nutrition adequate and pt tolerating diet. Encouraging fluids. Will continue to monitor. Problem: Potential for Compromised Skin Integrity Goal: Patient's nutritional intake is adequate Description: Patient's goal is: INTERVENTIONS 1. Assess and monitor food intake and supplements, patient food preferences, nausea, vomiting, labs, oral cavity (gums, teeth, tongue, mucosa), proper denture fit, and cultural beliefs 2. Monitor for signs of hypoglycemia and hyperglycemia 3. Collaborate with interdisciplinary team and initiate plan and interventions as ordered 4. Monitor patient's weight 5. Assist patient with meals/food selection 6. Assist patient with eating 7. Allow adequate time for meals 8. Provide pleasant environment during mealtime 9. Increase social contact during mealtimes 10. Plan activities to conserve energy 11. Encourage/perform oral hygiene as appropriate 12. Encourage patient to take dietary supplement as ordered 13. Collaborate with clinical computer network support specialist 14. Include patient/ patient's u.s. representative in decisions related to nutrition Outcome: Progressing Note: Evaluation of progress towards goal: Pt nutrition adequate and pt tolerating diet. Encouraging fluids. Will continue to monitor. Problem: Urinary Incontinence Goal: Perineal skin integrity is maintained or improved Description: INTERVENTIONS 1. Assess genitourinary system, perineal skin, labs (urinalysis), and history of incontinence to include past management, aggravating, and alleviating factors 2. Keep skin clean and dry 3. Apply skin protectant 4. Develop skin care regimen 5. Provide privacy when changing patients incontinence device to maintain their dignity 6. Consider placing an indwelling catheter 7. Collaborate with interdisciplinary team and initiate plans and interventions as needed Outcome: Progressing Note: Evaluation of progress towards goal: Perineal skin integrity is maintained or improved Progressing Not Progressing Adequate for Discharge Completed Expected end: Problem: Moderate - High Risk Fall Score Description: Mejia Fall Score of =/> 25 or indicated by [facility] Assessment Goal: Patient should be free from fall Description: Interventions: 1. [place] to environment 2. Hourly rounds addressing the 4 P's (Pain, Positioning, Possessions, Potty) 3. Clear area of hazards (spills, clutter, electrical cords, unnecessary equipment) 4. Place equipment (bed & TV controls, call light, phone, urinal) within reach 5. Encourage patient to wear glasses and hearing aides as appropriate 6. Maintain bed in lowest position 7. Lock wheels on bed/wheelchair 8. Provide adequate lighting, including night light 9. Assess need for additional bedding, food/fluids, pain med's prior to sleep/routinely 10. Provide gripper slippers or personal non-skid footwear 11. Teach patient and patient u.s. representative to maintain environment for safety and engage in all aspects of fall prevention program 12. Remind patient to call for help before getting out of bed 13. Initiate bed/chair/exit alarms supportive devices as appropriate, (chair wedge, no-skid floor mat, raised edge mattress, hip protectors) 14. Locate patient bed assignment for optimal visualization 15. Evaluate and identify Safe Patient Handling Equipment needs 16. Provide supervision when out of bed or chair 17. Utilize gait belt as needed to assist with ambulation 18. Place adaptive equipment (cane, walker) within reach 19. Request patient u.s. representative bring adaptive equipment/mobility aids from home or obtain and provide as needed 20. Consult pharmacy regarding effects of med's affecting mobility, cognition, and alternatives 21. Obtain physician order for PT if risk factors associated with mobility are present 22. Obtain physician order for OT as appropriate 23. Utilize diversional activities 24. Educate patient and patient u.s. representative how to maintain a safe environment during visitation times (notify nurse prior to leaving bedside) 25. Consider appropriateness of medical or non-medical pathologist 26. Set up voiding schedule as appropriate (every 2 hours) Note: Evaluation of progress towards goal: Pt remains free from falls and safety maintained. Will continue to monitor. Problem: Glucose Imbalance Goal: Clinical indication of glucose balance is achieved Description: Patient's goal is: INTERVENTIONS 1. Monitor blood glucose levels as ordered 2. Administer medications as ordered 3. Notify physician of ineffective treatment plan Outcome: Progressing Note: Evaluation of progress towards goal: Clinical indication of glucose balance is achieved Progressing Not Progressing Adequate for Discharge Completed Goal: Patient's discharge needs are met Description: Patient's goal is: INTERVENTIONS 1. Assess patient for self-management skills 2. Encourage participation in diabetes management 3. Identify potential discharge barriers on admission and throughout hospital stay 4. Involve patient/S.O. in discharge planning process 5. Communicate referral to family life educator as appropriate 6. Communicate referral to computer network support specialist as appropriate 7. Collaborate with case management/social secretary for discharge needs Outcome: Progressing Note: Evaluation of progress towards goal: atient's discharge needs are met Progressing Not Progressing Adequate for Discharge Completed Problem: Glucose Imbalance Goal: Patient's discharge needs are met Description: Patient's goal is: INTERVENTIONS 1. Assess patient for self-management skills 2. Encourage participation in diabetes management 3. Identify potential discharge barriers on admission and throughout hospital stay 4. Involve patient/S.O. in discharge planning process 5. Communicate referral to family life educator as appropriate 6. Communicate referral to computer network support specialist as appropriate 7. Collaborate with case management/social secretary for discharge needs Outcome: Progressing Note: Evaluation of progress towards goal: atient's discharge needs are met Progressing Not Progressing Adequate for Discharge Completed Images from the original note were not included. DISCHARGE PLANNING NOTE Services Requested: Services Requested Discharge Disposition: SNF, Outpatient Dialysis SNF Name: [facility] Phone Number: Does the patient need discharge transportation arranged?: Yes Transportation Arranged: Ambulance Patient choice offered: Yes List Provided: Patient declined Patient Declined: Active with Provider Initial DC Assessment Completed: Yes DC Planning Complete Discharge Milestones: Yes Patient Goals: Patient/Caregiver Goals Patient/Caregiver Goals: Residential Care Skilled Nuring Care: Skilled Care (Short Term) Goals: Goals SNF (pt-stated) Evaluation of progress towards goal: Pt will return to [facility] upon discharge. Pt was discussed in Transition Rounds. Chart reviewed. Pt was admitted under Observation status for Anemia. Therapy was not ordered. SW spoke to pt who said she will return to [facility] upon discharge. Pt gets Dialysis at [facility]. Pt has support from family. Pt will need ambulance back to [place]. SW did speak to Sloane from [place]. Pt can return at anytime. Pt denied need for food , Rx and appointment assistance. SW will continue to follow patient. DISCHARGE PLANNING NOTE Referral sent to. [facility] ([facility]) (P# ; F# ) Problem: Pain Goal: Patient goal is pain score less than 5, able to rest, and participant in treatment plan as appropriate Description: INTERVENTIONS: 1. Encourage patient or legal u.s. representative to report early pain and ask for pain medicine when needed 2. Assess pain using appropriate pain scale and include the scale used when documenting 3. Administer analgesics based on type and severity of pain and evaluate response within appropriate time frame 4. Implement non-pharmacological measures as appropriate and evaluate response 5. Consider cultural and social influences on pain and pain management 6. Notify LIP if interventions ineffective or patient reports new pain 7. Monitor vital signs including pulse ox, end-tidal CO2 based on pain intervention 8. Reassess pain per policy 9. Teach patient or legal u.s. representative interventions for comforting Outcome: Progressing Note: Evaluation of progress towards goal: Pt able to report pain according to 0/10 pain scale. Medicating patient for pain per orders. Comfort maintained. Will continue to monitor. Problem: Safety Goal: Patient will be injury free during hospitalization Description: INTERVENTIONS: 1. Assess patient's risk for falls and implement fall prevention plan of care per policy 2. Provide and maintain a safe environment 3. Proper use of double Identifiers 4. Medication administration using the 5 rights 5. Hand hygiene 6. Specimens are labeled at the bedside 7. Instruct patient/ patient u.s. representative about use of safety devices 8. Include patient/ patient u.s. representative in decisions related to safety Outcome: Progressing Note: Evaluation of progress towards goal: Safety measures initiated/maintained. Pt remains safe from harm/injury/falls. Will continue to monitor. Problem: Infection Goal: Absence of infection during hospitalization Description: Interventions: 1. Assess and monitor for signs and symptoms of infection 2. Monitor lab/diagnostic results 3. Monitor all insertion sites i.e., indwelling lines, tubes and drains 4. Monitor endotracheal (as able) and nasal secretions for changes in amount and color 5. Administer medications as ordered 6. Instruct and encourage patient and family to use good hand hygiene technique 7. Identify and instruct patient/patient u.s. representative in use of appropriate isolation precautions for identified infection/symptoms 8. Provide and discuss with patient/patient u.s. representative on educational MDRO sheet 9. Encourage and monitor nutritional status daily and consult computer network support specialist if indicated 10. Implement neutropenic guidelines as needed 11. Review exposure to history of communicable disease and recent travel history on admission 12. Encourage annual influenza vaccine 13. Encourage pneumonia vaccine Outcome: Progressing Note: Evaluation of progress towards goal: Patient VS WNL, remains afebrile for shift. Labs monitored per orders, hand hygiene encouraged. No S/S of infection at this time. Will continue to monitor. Problem: Knowledge Deficit Goal: Patient/patient u.s. representative demonstrates understanding of disease process, treatment plan, medications, and discharge instructions Description: INTERVENTIONS 1. Complete learning assessment and assess knowledge base 2. Provide teaching at level of understanding 3. Provide teaching via preferred learning method(s) Outcome: Progressing Note: Evaluation of progress towards goal: Plan of care discussed with pt throughout shift. Updated on all orders and changes. Verbalizes understanding and all questions/concerns addressed. Problem: Discharge Planning Goal: Discharge to post-acute care, other facility, or home with appropriate resources Description: Patient's goal is: INTERVENTIONS 1. Conduct assessment to determine patient/family and health care team treatment goals, and need for post-acute services based on payer coverage, community resources, and patient preferences, and barriers to discharge 2. Coordinate with Social work, Care Navigation, and Utilization Review to arrange appropriate level of services according to patient's needs based on patient preference and payer coverage in collaboration with the physician and health care team 3. Address psychosocial, clinical, and financial barriers to discharge as identified in assessment in conjunction with the patient/family and health care team 4. Consult appropriate ancillary services (i.e.. PT/OT/ST, etc) as needed 5. Communicate with and update the patient/family, physician, and health care team regarding progress on the discharge plan 6. Identify discharge learning needs (meds, wound care, etc). 7. Arrange for needed discharge transportation as appropriate Outcome: Progressing Note: Evaluation of progress towards goal: Discharge planning in progress. Discussed daily at DTRs. Problem: Potential for Compromised Skin Integrity Goal: Skin integrity is maintained or improved Description: Patient's goal is: INTERVENTIONS 1. Perform initial skin assessment on admission and as needed 2. Turn patient every 2 hours and PRN 3. Relieve pressure to bony prominences 4. Avoid shearing 5. Keep skin clean and dry 6. Alternate a full bath with partial baths for elderly 7. Apply lotion/moisturizer on skin 8. Monitor patient's hygiene practices 9. Float heels 10. Collaborate with interdisciplinary team and initiate plans and interventions as needed Outcome: Progressing Goal: Patient's nutritional intake is adequate Description: Patient's goal is: INTERVENTIONS 1. Assess and monitor food intake and supplements, patient food preferences, nausea, vomiting, labs, oral cavity (gums, teeth, tongue, mucosa), proper denture fit, and cultural beliefs 2. Monitor for signs of hypoglycemia and hyperglycemia 3. Collaborate with interdisciplinary team and initiate plan and interventions as ordered 4. Monitor patient's weight 5. Assist patient with meals/food selection 6. Assist patient with eating 7. Allow adequate time for meals 8. Provide pleasant environment during mealtime 9. Increase social contact during mealtimes 10. Plan activities to conserve energy 11. Encourage/perform oral hygiene as appropriate 12. Encourage patient to take dietary supplement as ordered 13. Collaborate with clinical computer network support specialist 14. Include patient/ patient's u.s. representative in decisions related to nutrition Outcome: Progressing Problem: Urinary Incontinence Goal: Perineal skin integrity is maintained or improved Description: INTERVENTIONS 1. Assess genitourinary system, perineal skin, labs (urinalysis), and history of incontinence to include past management, aggravating, and alleviating factors 2. Keep skin clean and dry 3. Apply skin protectant 4. Develop skin care regimen 5. Provide privacy when changing patients incontinence device to maintain their dignity 6. Consider placing an indwelling catheter 7. Collaborate with interdisciplinary team and initiate plans and interventions as needed Outcome: Progressing Problem: Moderate - High Risk Fall Score Description: Mejia Fall Score of =/> 25 or indicated by [facility] Assessment Goal: Patient should be free from fall Description: Interventions: 1. [place] to environment 2. Hourly rounds addressing the 4 P's (Pain, Positioning, Possessions, Potty) 3. Clear area of hazards (spills, clutter, electrical cords, unnecessary equipment) 4. Place equipment (bed & TV controls, call light, phone, urinal) within reach 5. Encourage patient to wear glasses and hearing aides as appropriate 6. Maintain bed in lowest position 7. Lock wheels on bed/wheelchair 8. Provide adequate lighting, including night light 9. Assess need for additional bedding, food/fluids, pain med's prior to sleep/routinely 10. Provide gripper slippers or personal non-skid footwear 11. Teach patient and patient u.s. representative to maintain environment for safety and engage in all aspects of fall prevention program 12. Remind patient to call for help before getting out of bed 13. Initiate bed/chair/exit alarms supportive devices as appropriate, (chair wedge, no-skid floor mat, raised edge mattress, hip protectors) 14. Locate patient bed assignment for optimal visualization 15. Evaluate and identify Safe Patient Handling Equipment needs 16. Provide supervision when out of bed or chair 17. Utilize gait belt as needed to assist with ambulation 18. Place adaptive equipment (cane, walker) within reach 19. Request patient u.s. representative bring adaptive equipment/mobility aids from home or obtain and provide as needed 20. Consult pharmacy regarding effects of med's affecting mobility, cognition, and alternatives 21. Obtain physician order for PT if risk factors associated with mobility are present 22. Obtain physician order for OT as appropriate 23. Utilize diversional activities 24. Educate patient and patient u.s. representative how to maintain a safe environment during visitation times (notify nurse prior to leaving bedside) 25. Consider appropriateness of medical or non-medical pathologist 26. Set up voiding schedule as appropriate (every 2 hours) Outcome: Progressing Note: Evaluation of progress towards goal: Bed in low position and locked, non slip footwear on when out of bed, call light within reach, hourly rounding to address patients needs, pt instructed to use call light for any needs/assistance. Pt free from falls/injury at this time. Safety maintained. Problem: Glucose Imbalance Goal: Clinical indication of glucose balance is achieved Description: Patient's goal is: INTERVENTIONS 1. Monitor blood glucose levels as ordered 2. Administer medications as ordered 3. Notify physician of ineffective treatment plan Outcome: Progressing Note: Evaluation of progress towards goal: Blood glucose levels monitored per orders, Diabetic medications administered per orders. Goal: Patient's discharge needs are met Description: Patient's goal is: INTERVENTIONS 1. Assess patient for self-management skills 2. Encourage participation in diabetes management 3. Identify potential discharge barriers on admission and throughout hospital stay 4. Involve patient/S.O. in discharge planning process 5. Communicate referral to family life educator as appropriate 6. Communicate referral to computer network support specialist as appropriate 7. Collaborate with case management/social secretary for discharge needs Outcome: Progressing Note: Evaluation of progress towards goal: Discharge planning in progress. Discussed daily at DTRs. Problem: Pain Goal: Patient goal is pain score less than 4, able to rest, and participant in treatment plan as appropriate Description: INTERVENTIONS: 1. Encourage patient or legal u.s. representative to report early pain and ask for pain medicine when needed 2. Assess pain using appropriate pain scale and include the scale used when documenting 3. Administer analgesics based on type and severity of pain and evaluate response within appropriate time frame 4. Implement non-pharmacological measures as appropriate and evaluate response 5. Consider cultural and social influences on pain and pain management 6. Notify LIP if interventions ineffective or patient reports new pain 7. Monitor vital signs including pulse ox, end-tidal CO2 based on pain intervention 8. Reassess pain per policy 9. Teach patient or legal u.s. representative interventions for comforting Outcome: Progressing Note: Evaluation of progress towards goal: Patient able to report pain appropriately using the 0/10 pain scale. Problem: Safety Goal: Patient will be injury free during hospitalization Description: INTERVENTIONS: 1. Assess patient's risk for falls and implement fall prevention plan of care per policy 2. Provide and maintain a safe environment 3. Proper use of double Identifiers 4. Medication administration using the 5 rights 5. Hand hygiene 6. Specimens are labeled at the bedside 7. Instruct patient/ patient u.s. representative about use of safety devices 8. Include patient/ patient u.s. representative in decisions related to safety Outcome: Progressing Note: Evaluation of progress towards goal: Patient has been educated on using the call light and the bed alarm is on at this time. Problem: Knowledge Deficit Goal: Patient/patient u.s. representative demonstrates understanding of disease process, treatment plan, medications, and discharge instructions Description: INTERVENTIONS 1. Complete learning assessment and assess knowledge base 2. Provide teaching at level of understanding 3. Provide teaching via preferred learning method(s) Outcome: Progressing Note: Evaluation of progress towards goal: Patient shows acceptance and understanding with the plan of care at this time. Problem: Pain Goal: Patient goal is pain score less than 4, able to rest, and participant in treatment plan as appropriate Description: INTERVENTIONS: 1. Encourage patient or legal u.s. representative to report early pain and ask for pain medicine when needed 2. Assess pain using appropriate pain scale and include the scale used when documenting 3. Administer analgesics based on type and severity of pain and evaluate response within appropriate time frame 4. Implement non-pharmacological measures as appropriate and evaluate response 5. Consider cultural and social influences on pain and pain management 6. Notify LIP if interventions ineffective or patient reports new pain 7. Monitor vital signs including pulse ox, end-tidal CO2 based on pain intervention 8. Reassess pain per policy 9. Teach patient or legal u.s. representative interventions for comforting Outcome: Progressing Note: Evaluation of progress towards goal: Patient denies pain and understands therapy to achieve adequate comfort level. Problem: Safety Goal: Patient will be injury free during hospitalization Description: INTERVENTIONS: 1. Assess patient's risk for falls and implement fall prevention plan of care per policy 2. Provide and maintain a safe environment 3. Proper use of double Identifiers 4. Medication administration using the 5 rights 5. Hand hygiene 6. Specimens are labeled at the bedside 7. Instruct patient/ patient u.s. representative about use of safety devices 8. Include patient/ patient u.s. representative in decisions related to safety Outcome: Progressing Note: Evaluation of progress towards goal: Patient calls out appropriately for assistance and call light is within reach to remain injury free during hospitalization. Problem: Infection Goal: Absence of infection during hospitalization Description: Interventions: 1. Assess and monitor for signs and symptoms of infection 2. Monitor lab/diagnostic results 3. Monitor all insertion sites i.e., indwelling lines, tubes and drains 4. Monitor endotracheal (as able) and nasal secretions for changes in amount and color 5. Administer medications as ordered 6. Instruct and encourage patient and family to use good hand hygiene technique 7. Identify and instruct patient/patient u.s. representative in use of appropriate isolation precautions for identified infection/symptoms 8. Provide and discuss with patient/patient u.s. representative on educational MDRO sheet 9. Encourage and monitor nutritional status daily and consult computer network support specialist if indicated 10. Implement neutropenic guidelines as needed 11. Review exposure to history of communicable disease and recent travel history on admission 12. Encourage annual influenza vaccine 13. Encourage pneumonia vaccine Outcome: Progressing Note: Evaluation of progress towards goal: Patient is placed in standard precautions, monitored for WBC elevation, and receiving ATB therapy to prevent further infection during hospitalization. Problem: Knowledge Deficit Goal: Patient/patient u.s. representative demonstrates understanding of disease process, treatment plan, medications, and discharge instructions Description: INTERVENTIONS 1. Complete learning assessment and assess knowledge base 2. Provide teaching at level of understanding 3. Provide teaching via preferred learning method(s) Outcome: Progressing Note: Evaluation of progress towards goal: Patient and representatives verbalizes understanding of treatment plan and medication therapy for hospitalization. Problem: Potential for Compromised Skin Integrity Goal: Skin integrity is maintained or improved Description: Patient's goal is: INTERVENTIONS 1. Perform initial skin assessment on admission and as needed 2. Turn patient every 2 hours and PRN 3. Relieve pressure to bony prominences 4. Avoid shearing 5. Keep skin clean and dry 6. Alternate a full bath with partial baths for elderly 7. Apply lotion/moisturizer on skin 8. Monitor patient's hygiene practices 9. Float heels 10. Collaborate with interdisciplinary team and initiate plans and interventions as needed Outcome: Progressing Note: Evaluation of progress towards goal: Patient is turned every 2 hours, pillow support provided and reddened area cleansed and powdered. Problem: Glucose Imbalance Goal: Clinical indication of glucose balance is achieved Description: Patient's goal is: INTERVENTIONS 1. Monitor blood glucose levels as ordered 2. Administer medications as ordered 3. Notify physician of ineffective treatment plan Outcome: Progressing Note: Evaluation of progress towards goal: Patient maintains glucose balance via fingerstick blood sugar checks, diet control and insulin administration. Additional Comments: documented in this encounter [facility] 09-03-2023 Progress note Formatting of t his note might be different from the original. DISCHARGE PLANNING NOTE DAVIN informed of discharge. [facility] was tasked with sending orders and arranging transport. DAVIN did inform [place] that pt will be returning today. DAVIN also notified pt's sister Марина of discharge. [facility] 09-03-2023 Procedure note Associated Ord er(s): HEMODIALYSIS / ULTRAFILTRATION - TABLO hr HD tx completed. 210 Pt tolerated tx.:Well Tx complications:: None Medications given:: None Net fluid removal: L 2 per machine 2.8 per scale Pre tx weight: k.3 Post tx weight: k.5 Post BP::152/68 Access: : LUAVF Report given to Primary RN: Lavonne [facility] 09-03-2023 Procedure note Associated Ord er(s): HEMODIALYSIS / ULTRAFILTRATION - TABLO hr HD tx completed. 210 Pt tolerated tx.:Well Tx complications:: None Medications given:: None Net fluid removal: L 2 per machine 2.8 per scale Pre tx weight: k.3 Post tx weight: k.5 Post BP::152/68 Access: : LUAVF Report given to Primary RN: Lavonne Associated Order(s): HEMODIALYSIS / ULTRAFILTRATION - TABLO Tolerated 3.5 hours of HD poor. Required 400ml saline, miododrine and decrease in UFR for hypotension. Nephrology INSTALLATION AND SERVICE TECHNICIAN notified of above and that I was unable to reach fluid removal goal of 3L AVF functioned well at [id number] Dry wt 98.6kg Post wt 105.7kg Fluid removal 1.9L Post bp 135/56 documented in this encounter [facility] 09-03-2023 Progress note Formatting of t his note might be different from the original. DISCHARGE PLANNING NOTE BLS to [place] at 5 PM. Confirmed in [place]. [facility] 09-03-2023 Hospital course Narrative Images from the original note were not included. [facility] [address] [place] [address] Hospital Medicine Discharge Summary Patient: Janay Schilling Date of : 1950 Room: Encounter date: 09/03/23 DATE OF ADMISSION: 09/01/2023 DATE OF DISCHARGE:09/03/2023 DISCHARGE DIAGNOSES Principal Problem: Anemia Active Problems: Essential hypertension Anemia of chronic disease Diabetes type 2, controlled ([facility] [place] [place]) ESRD (end stage renal disease) on dialysis ([facility] [place] [place]) [facility] Nephrology PCP: LUCIE BARRY MD PROCEDURES Hemodialysis HOSPITAL COURSE SUMMARY Janay Schilling is a 73 y.o. female who presents with ESRD on dialysis Tuesday, and Tuesday via left upper extremity AV fistula, hypertension, hyperlipidemia, heart failure, diabetes presenting to the emergency department for evaluation for abnormal lab as an outpatient. Hemoglobin less than 7. Dialysis refused her unless she gets transfused. Has a history of anemia of chronic disease of which she gets aranesp injections as an outpatient but got lost to follow up and just restarted them within the last month. She reports some fatigue and weakness otherwise denies chest pain, shortness of breath. Last dialysis was 2 days ago. Misssed Dialysis session today. Denies black stool. MANAGER SYSTEMS 5.74. K+ 5.4. HGB 6.3. Anemia/anemia of chronic disease HGB 6.3 Received 1U PRBC at [facility] Repeat HGB 7.6 H&H Q8H Transfuse 1U PRBC for HGB <7 Aranesp injection administered today. Nephrology will monitor H&H and adjust erythropoietin PRN End-stage renal disease on HD Nephrology consult for HD mgmt T,,S schedule HD this am Plans for HD in am, DC after Essential hypertension Resume Coreg, Imdur Hold Losartan d/t hyperkalemia Hemoglobin stable at 8.4. Patient will continue to receive Aranesp injections weekly. Nephrology to manage. Patient will discharge home and follow-up with PCP within 7-14 days. Continue hemodialysis Tuesday, , Tuesday schedule. Code Status: Full Code Labs Recent Results (from the past 48 hour(s)) Potassium Collection Time: 09/01/23 8:44 PM Result Value Ref Range Potassium, Bld 5.5 (H) 3.5 - 5.0 mmol/L Bedside Glucose *Place/Obtain serum glucose if >500(>600 [facility]) per glucometer. Collection Time: 09/01/23 9:29 PM Result Value Ref Range Bedside glucose 160 (H) 65 - 99 mg/dL Hemoglobin and hematocrit, blood Collection Time: 09/02/23 12:09 AM Result Value Ref Range Hemoglobin 7.0 (L) 11.7 - 15.5 g/dL Hematocrit 21.4 (L) 35 - 47 % Comprehensive metabolic panel Collection Time: 09/02/23 3:42 AM Result Value Ref Range Sodium 135 134 - 146 mmol/L Potassium, Bld 5.4 (H) 3.5 - 5.0 mmol/L Chloride 103 98 - 109 mmol/L CO2 23 22 - 32 mmol/L Anion gap 9 5 - 15 mmol/L BUN 77 (H) 5 - 27 mg/dL Creatinine 6.31 (H) 0.40 - 1.00 mg/dL Glucose 126 (H) 65 - 99 mg/dL Calcium 8.6 8.5 - 10.5 mg/dL Total Protein 5.9 (L) 6.0 - 8.0 g/dL Albumin 2.8 (L) 3.2 - 5.3 g/dL Alkaline Phosphatase 69 39 - 130 U/L AST 13 0 - 41 U/L ALT 18 0 - 31 U/L Total bilirubin 0.5 0.3 - 1.2 mg/dL eGFR (CKD-EPI)non-race dependent 7 (L) >59 ml/min/1.73sq.m Magnesium Collection Time: 09/02/23 3:42 AM Result Value Ref Range Magnesium 2.2 1.8 - 2.6 mg/dL CBC auto differential Collection Time: 09/02/23 3:42 AM Result Value Ref Range White Blood Cells 4.3 4.0 - 11.0 X10E9/L RBC count 2.03 (L) 3.80 - 5.20 X10E12/L Hemoglobin 7.0 (L) 11.7 - 15.5 g/dL Hematocrit 21.6 (L) 35 - 47 % MCV 106 (H) 80 - 100 fL MCH 34.3 (H) 27 - 34 pg MCHC 32.2 32 - 36 g/dL RDW 18.5 (H) 11.5 - 15.0 % Platelets 125 (L) 150 - 450 X10E9/L MPV 8.3 7 - 12 fL % neutrophils 54.0 % % lymphocytes 28.1 % % monocytes 10.7 % % eosinophils 6.0 % % Basophils 1.2 % Neutrophils Absolute (A) 2.3 1.5 - 6.6 X10E9/L Lymphocytes Absolute 1.2 1.0 - 3.5 X10E9/L Monocytes Absolute 0.5 0 - 0.9 X10E9/L Eosinophils Absolute 0.3 0.0 - 0.4 X10E9/L Basophils Absolute 0.1 0.0 - 0.2 X10E9/L Bedside Glucose *Place/Obtain serum glucose if >500(>600 [facility]) per glucometer. Collection Time: 09/02/23 8:04 AM Result Value Ref Range Bedside glucose 137 (H) 65 - 99 mg/dL Hepatitis B Surface Antibody Quantitation Collection Time: 09/02/23 9:57 AM Result Value Ref Range Anti HBs quantitative <8.00 mIU/mL Hepatitis B surface antigen Collection Time: 09/02/23 9:57 AM Result Value Ref Range Hepatitis B Surface Ag Negative Negative^Negative Bedside Glucose *Place/Obtain serum glucose if >500(>600 [facility]) per glucometer. Collection Time: 09/02/23 11:43 AM Result Value Ref Range Bedside glucose 111 (H) 65 - 99 mg/dL Hemoglobin and hematocrit, blood Collection Time: 09/02/23 12:59 PM Result Value Ref Range Hemoglobin 7.7 (L) 11.7 - 15.5 g/dL Hematocrit 23.9 (L) 35 - 47 % Bedside Glucose *Place/Obtain serum glucose if >500(>600 [facility]) per glucometer. Collection Time: 09/02/23 6:01 PM Result Value Ref Range Bedside glucose 122 (H) 65 - 99 mg/dL Type and screen(includes indirect vmasi) Collection Time: 09/02/23 9:00 PM Result Value Ref Range Antibody Screen Negative ABO A RH Positive ABO Rh Repeat Collection Time: 09/02/23 9:00 PM Result Value Ref Range ABO A RH Positive Hemoglobin and hematocrit, blood Collection Time: 09/02/23 9:05 PM Result Value Ref Range Hemoglobin 6.9 (LL) 11.7 - 15.5 g/dL Hematocrit 21.2 (L) 35 - 47 % Bedside Glucose *Place/Obtain serum glucose if >500(>600 [facility]) per glucometer. Collection Time: 09/02/23 9:28 PM Result Value Ref Range Bedside glucose 111 (H) 65 - 99 mg/dL Crossmatch RBC:Number of Units: 1 Collection Time: 09/02/23 10:30 PM Result Value Ref Range Blood component type [id number] Unit number [id number] Unit ABO A Unit RH POS Crossmatch Compatible Status of unit ISSUED Expiration Date [id number] BB Type Barcode 6200 ABO/Rh Collection Time: 09/02/23 10:30 PM Result Value Ref Range ABO A RH Positive Comprehensive metabolic panel Collection Time: 09/03/23 3:53 AM Result Value Ref Range Sodium 134 134 - 146 mmol/L Potassium, Bld 4.5 3.5 - 5.0 mmol/L Chloride 102 98 - 109 mmol/L CO2 25 22 - 32 mmol/L Anion gap 7 5 - 15 mmol/L BUN 48 (H) 5 - 27 mg/dL Creatinine 4.15 (H) 0.40 - 1.00 mg/dL Glucose 136 (H) 65 - 99 mg/dL Calcium 8.3 (L) 8.5 - 10.5 mg/dL Total Protein 5.7 (L) 6.0 - 8.0 g/dL Albumin 2.7 (L) 3.2 - 5.3 g/dL Alkaline Phosphatase 67 39 - 130 U/L AST 14 0 - 41 U/L ALT 17 0 - 31 U/L Total bilirubin 0.3 0.3 - 1.2 mg/dL eGFR (CKD-EPI)non-race dependent 11 (L) >59 ml/min/1.73sq.m Magnesium Collection Time: 09/03/23 3:53 AM Result Value Ref Range Magnesium 2.1 1.8 - 2.6 mg/dL CBC auto differential Collection Time: 09/03/23 3:53 AM Result Value Ref Range White Blood Cells 3.8 (L) 4.0 - 11.0 X10E9/L RBC count 2.20 (L) 3.80 - 5.20 X10E12/L Hemoglobin 7.3 (L) 11.7 - 15.5 g/dL Hematocrit 22.5 (L) 35 - 47 % MCV 102 (H) 80 - 100 fL MCH 33.4 27 - 34 pg MCHC 32.7 32 - 36 g/dL RDW 19.2 (H) 11.5 - 15.0 % Platelets 127 (L) 150 - 450 X10E9/L MPV 8.1 7 - 12 fL % neutrophils 49.7 % % lymphocytes 30.9 % % monocytes 11.1 % % eosinophils 6.7 % % Basophils 1.6 % Neutrophils Absolute (A) 1.9 1.5 - 6.6 X10E9/L Lymphocytes Absolute 1.2 1.0 - 3.5 X10E9/L Monocytes Absolute 0.4 0 - 0.9 X10E9/L Eosinophils Absolute 0.3 0.0 - 0.4 X10E9/L Basophils Absolute 0.1 0.0 - 0.2 X10E9/L Hemoglobin and hematocrit, blood Collection Time: 09/03/23 5:10 AM Result Value Ref Range Hemoglobin 7.5 (L) 11.7 - 15.5 g/dL Hematocrit 22.6 (L) 35 - 47 % Bedside Glucose *Place/Obtain serum glucose if >500(>600 [facility]) per glucometer. Collection Time: 09/03/23 7:44 AM Result Value Ref Range Bedside glucose 122 (H) 65 - 99 mg/dL Bedside Glucose *Place/Obtain serum glucose if >500(>600 [facility]) per glucometer. Collection Time: 09/03/23 11:36 AM Result Value Ref Range Bedside glucose 117 (H) 65 - 99 mg/dL Hemoglobin and hematocrit, blood Collection Time: 09/03/23 1:09 PM Result Value Ref Range Hemoglobin 8.4 (L) 11.7 - 15.5 g/dL Hematocrit 25.7 (L) 35 - 47 % Radiology No results found. DISCHARGE INSTRUCTION Discharge disposition: group home facility Condition:Stable Activity: activity as tolerated Diet: Adult diet Regular Texture; Low Phosphorus (800-1000 mg), Low Potassium (50-70 mEq) Follow up: LUCIE BARRY MD within 7-14 days. Discharge Medications: Medication List CONTINUE taking these medications Instructions Last Dose Given Next Dose Due acetaminophen 500 mg tablet Commonly known as: TYLENOL EXTRA STRENGTH Take 1 tablet (500 mg total) by mouth every 4 (four) hours as needed for pain. albuterol 90 mcg/actuation inhaler Commonly known as: PROVENTIL HFA;VENTOLIN HFA Inhale 2 puffs every 4 (four) hours as needed for wheezing or shortness of breath. atorvastatin 40 mg tablet Commonly known as: LIPITOR Take 2 tablets (80 mg total) by mouth in the morning. bumetanide 0.5 mg tablet Commonly known as: BUMEX Take 1 tablet (0.5 mg total) by mouth daily. carvediloL 3.125 mg tablet Commonly known as: COREG Take 1 tablet (3.125 mg total) by mouth once daily at bedtime. Hold for HR less than 60 cetirizine 10 mg tablet Commonly known as: ZyrTEC Take 1 tablet (10 mg total) by mouth in the morning. DIALYVITE 800 WITH ZINC 15 0.8-15 mg tablet Generic drug: vitamin B albpjy-P-GA-zinc cit Take 1 tablet by mouth every morning. docusate sodium 100 mg capsule Commonly known as: COLACE Take 1 capsule (100 mg total) by mouth in the morning and 1 capsule (100 mg total) before bedtime. ergocalciferol 1,250 mcg (50,000 unit) capsule Commonly known as: DRISDOL Take 1 capsule (50,000 Units total) by mouth in the morning. Give 1 capsule by mouth one time daily starting on the and ending on the every month.. guaiFENesin 600 mg tablet extended release 12hr Commonly known as: MUCINEX Take 1 tablet (600 mg total) by mouth every 12 (twelve) hours as needed (congestion). isosorbide mononitrate 30 mg 24 hr tablet Commonly known as: IMDUR Take 1 tablet (30 mg total) by mouth daily. LANTUS SOLOSTAR U-100 INSULIN 100 unit/mL (3 mL) insulin pen Generic drug: insulin glargine Inject 12 Units under the skin in the morning. LEVOTHYROXINE ORAL Take 188 mcg by mouth in the morning. losartan 50 mg tablet Commonly known as: COZAAR Notes to patient: Take as prescribed by provider Take 1 tablet (50 mg total) by mouth. Mon, Wed, Fri, Sun midodrine 5 mg tablet Commonly known as: PROAMATINE Notes to patient: Take as prescribed by provider Take 1 tablet (5 mg total) by mouth. One tablet, one time daily, on days Tu, , and Sat. Hold if SMP is greater than 110 MIRALAX 17 gram/dose powder Generic drug: polyethylene glycol Take 17 g by mouth in the morning. SENNA WITH DOCUSATE SODIUM 8.6-50 mg Generic drug: sennosides-docusate sodium Take 1 tablet by mouth in the morning and 1 tablet before bedtime. sertraline 100 mg tablet Commonly known as: ZOLOFT Take 2 tablets (200 mg total) by mouth in the morning. sevelamer 800 mg tablet Commonly known as: RENVELA Take 1 tablet (800 mg total) by mouth in the morning and 1 tablet (800 mg total) in the evening. Take with meals. STOP taking these medications amLODIPine 10 mg tablet Commonly known as: NORVAS Where to Get Your Medications These medications were sent to [facility] - STEPHANY KHALIL MD - [id number] [id number] [place] [place], [place] [id number] bumetanide 0.5 mg tablet >30 minutes were spent on discharging this patient. IRINA Villalobos 09/03/2023 5:14 PM [facility] Internal Medicine 7AM-7PM (all facilities): Vidya or page through Shypera. 7PM-7AM ([facility], [facility]): Vidya or flor, [phone]. 7PM-7AM ([place], [place], [place], [place] and [facility] Rehab): EpicChat or page through Vocera. IRINA Villalobos 09/03/23 [id number] Physician Attestation I, Dona Kincaid MD, personally performed a face to face diagnostic evaluation on this patient. I have reviewed the note authored by the advance practice provider including history, review of systems,physical examination,medical decision making and agree with the assessment and plan as written. I have seen and evaluated the patient, I have repeated the flores portions of the physical exam and concur with the KYLE findings. I have reviewed all laboratory findings and imaging reports/films. I agree with the plan as noted. documented in this encounter [facility] Exie 09-03-2023 Plan of care note Problem: Pain Goal: Patient goal is pain score less than 5, able to rest, and participant in treatment plan as appropriate Description: INTERVENTIONS: 1. Encourage patient or legal u.s. representative to report early pain and ask for pain medicine when needed 2. Assess pain using appropriate pain scale and include the scale used when documenting 3. Administer analgesics based on type and severity of pain and evaluate response within appropriate time frame 4. Implement non-pharmacological measures as appropriate and evaluate response 5. Consider cultural and social influences on pain and pain management 6. Notify LIP if interventions ineffective or patient reports new pain 7. Monitor vital signs including pulse ox, end-tidal CO2 based on pain intervention 8. Reassess pain per policy 9. Teach patient or legal u.s. representative interventions for comforting Outcome: Progressing Note: Evaluation of progress towards goal: Pt able to report pain according to 0/10 pain scale. Medicating patient for pain per orders. Comfort maintained. Will continue to monitor. Problem: Safety Goal: Patient will be injury free during hospitalization Description: INTERVENTIONS: 1. Assess patient's risk for falls and implement fall prevention plan of care per policy 2. Provide and maintain a safe environment 3. Proper use of double Identifiers 4. Medication administration using the 5 rights 5. Hand hygiene 6. Specimens are labeled at the bedside 7. Instruct patient/ patient u.s. representative about use of safety devices 8. Include patient/ patient u.s. representative in decisions related to safety Outcome: Progressing Note: Evaluation of progress towards goal: Safety measures initiated/maintained. Pt remains safe from harm/injury/falls. Will continue to monitor. Problem: Infection Goal: Absence of infection during hospitalization Description: Interventions: 1. Assess and monitor for signs and symptoms of infection 2. Monitor lab/diagnostic results 3. Monitor all insertion sites i.e., indwelling lines, tubes and drains 4. Monitor endotracheal (as able) and nasal secretions for changes in amount and color 5. Administer medications as ordered 6. Instruct and encourage patient and family to use good hand hygiene technique 7. Identify and instruct patient/patient u.s. representative in use of appropriate isolation precautions for identified infection/symptoms 8. Provide and discuss with patient/patient u.s. representative on educational MDRO sheet 9. Encourage and monitor nutritional status daily and consult computer network support specialist if indicated 10. Implement neutropenic guidelines as needed 11. Review exposure to history of communicable disease and recent travel history on admission 12. Encourage annual influenza vaccine 13. Encourage pneumonia vaccine Outcome: Progressing Note: Evaluation of progress towards goal: Patient VS WNL, remains afebrile for shift. Labs monitored per orders, hand hygiene encouraged. No S/S of infection at this time. Will continue to monitor. Problem: Knowledge Deficit Goal: Patient/patient u.s. representative demonstrates understanding of disease process, treatment plan, medications, and discharge instructions Description: INTERVENTIONS 1. Complete learning assessment and assess knowledge base 2. Provide teaching at level of understanding 3. Provide teaching via preferred learning method(s) Outcome: Progressing Note: Evaluation of progress towards goal: Plan of care discussed with pt throughout shift. Updated on all orders and changes. Verbalizes understanding and all questions/concerns addressed. Problem: Discharge Planning Goal: Discharge to post-acute care, other facility, or home with appropriate resources Description: Patient's goal is: INTERVENTIONS 1. Conduct assessment to determine patient/family and health care team treatment goals, and need for post-acute services based on payer coverage, community resources, and patient preferences, and barriers to discharge 2. Coordinate with Social work, Care Navigation, and Utilization Review to arrange appropriate level of services according to patient's needs based on patient preference and payer coverage in collaboration with the physician and health care team 3. Address psychosocial, clinical, and financial barriers to discharge as identified in assessment in conjunction with the patient/family and health care team 4. Consult appropriate ancillary services (i.e.. PT/OT/ST, etc) as needed 5. Communicate with and update the patient/family, physician, and health care team regarding progress on the discharge plan 6. Identify discharge learning needs (meds, wound care, etc). 7. Arrange for needed discharge transportation as appropriate Outcome: Progressing Note: Evaluation of progress towards goal: Discharge planning in progress. Discussed daily at DTRs. Problem: Potential for Compromised Skin Integrity Goal: Skin integrity is maintained or improved Description: Patient's goal is: INTERVENTIONS 1. Perform initial skin assessment on admission and as needed 2. Turn patient every 2 hours and PRN 3. Relieve pressure to bony prominences 4. Avoid shearing 5. Keep skin clean and dry 6. Alternate a full bath with partial baths for elderly 7. Apply lotion/moisturizer on skin 8. Monitor patient's hygiene practices 9. Float heels 10. Collaborate with interdisciplinary team and initiate plans and interventions as needed Outcome: Progressing Goal: Patient's nutritional intake is adequate Description: Patient's goal is: INTERVENTIONS 1. Assess and monitor food intake and supplements, patient food preferences, nausea, vomiting, labs, oral cavity (gums, teeth, tongue, mucosa), proper denture fit, and cultural beliefs 2. Monitor for signs of hypoglycemia and hyperglycemia 3. Collaborate with interdisciplinary team and initiate plan and interventions as ordered 4. Monitor patient's weight 5. Assist patient with meals/food selection 6. Assist patient with eating 7. Allow adequate time for meals 8. Provide pleasant environment during mealtime 9. Increase social contact during mealtimes 10. Plan activities to conserve energy 11. Encourage/perform oral hygiene as appropriate 12. Encourage patient to take dietary supplement as ordered 13. Collaborate with clinical computer network support specialist 14. Include patient/ patient's u.s. representative in decisions related to nutrition Outcome: Progressing Problem: Urinary Incontinence Goal: Perineal skin integrity is maintained or improved Description: INTERVENTIONS 1. Assess genitourinary system, perineal skin, labs (urinalysis), and history of incontinence to include past management, aggravating, and alleviating factors 2. Keep skin clean and dry 3. Apply skin protectant 4. Develop skin care regimen 5. Provide privacy when changing patients incontinence device to maintain their dignity 6. Consider placing an indwelling catheter 7. Collaborate with interdisciplinary team and initiate plans and interventions as needed Outcome: Progressing Problem: Moderate - High Risk Fall Score Description: Mejia Fall Score of =/> 25 or indicated by [facility] Assessment Goal: Patient should be free from fall Description: Interventions: 1. [place] to environment 2. Hourly rounds addressing the 4 P's (Pain, Positioning, Possessions, Potty) 3. Clear area of hazards (spills, clutter, electrical cords, unnecessary equipment) 4. Place equipment (bed & TV controls, call light, phone, urinal) within reach 5. Encourage patient to wear glasses and hearing aides as appropriate 6. Maintain bed in lowest position 7. Lock wheels on bed/wheelchair 8. Provide adequate lighting, including night light 9. Assess need for additional bedding, food/fluids, pain med's prior to sleep/routinely 10. Provide gripper slippers or personal non-skid footwear 11. Teach patient and patient u.s. representative to maintain environment for safety and engage in all aspects of fall prevention program 12. Remind patient to call for help before getting out of bed 13. Initiate bed/chair/exit alarms supportive devices as appropriate, (chair wedge, no-skid floor mat, raised edge mattress, hip protectors) 14. Locate patient bed assignment for optimal visualization 15. Evaluate and identify Safe Patient Handling Equipment needs 16. Provide supervision when out of bed or chair 17. Utilize gait belt as needed to assist with ambulation 18. Place adaptive equipment (cane, walker) within reach 19. Request patient u.s. representative bring adaptive equipment/mobility aids from home or obtain and provide as needed 20. Consult pharmacy regarding effects of med's affecting mobility, cognition, and alternatives 21. Obtain physician order for PT if risk factors associated with mobility are present 22. Obtain physician order for OT as appropriate 23. Utilize diversional activities 24. Educate patient and patient u.s. representative how to maintain a safe environment during visitation times (notify nurse prior to leaving bedside) 25. Consider appropriateness of medical or non-medical pathologist 26. Set up voiding schedule as appropriate (every 2 hours) Outcome: Progressing Note: Evaluation of progress towards goal: Bed in low position and locked, non slip footwear on when out of bed, call light within reach, hourly rounding to address patients needs, pt instructed to use call light for any needs/assistance. Pt free from falls/injury at this time. Safety maintained. Problem: Glucose Imbalance Goal: Clinical indication of glucose balance is achieved Description: Patient's goal is: INTERVENTIONS 1. Monitor blood glucose levels as ordered 2. Administer medications as ordered 3. Notify physician of ineffective treatment plan Outcome: Progressing Note: Evaluation of progress towards goal: Pt educated on hyperglycemia/hypoglycemia symptoms and appropriate corrective actions, computer network support specialist referral as needed. Goal: Patient's discharge needs are met Description: Patient's goal is: INTERVENTIONS 1. Assess patient for self-management skills 2. Encourage participation in diabetes management 3. Identify potential discharge barriers on admission and throughout hospital stay 4. Involve patient/S.O. in discharge planning process 5. Communicate referral to family life educator as appropriate 6. Communicate referral to computer network support specialist as appropriate 7. Collaborate with case management/social secretary for discharge needs Outcome: Progressing Note: Evaluation of progress towards goal: Discharge planning in progress. Discussed daily at DTRs. Wingu 09-02-2023 Plan of care note Problem: Pain Goal: Patient goal is pain score less than 4, able to rest, and participant in treatment plan as appropriate Description: INTERVENTIONS: 1. Encourage patient or legal u.s. representative to report early pain and ask for pain medicine when needed 2. Assess pain using appropriate pain scale and include the scale used when documenting 3. Administer analgesics based on type and severity of pain and evaluate response within appropriate time frame 4. Implement non-pharmacological measures as appropriate and evaluate response 5. Consider cultural and social influences on pain and pain management 6. Notify LIP if interventions ineffective or patient reports new pain 7. Monitor vital signs including pulse ox, end-tidal CO2 based on pain intervention 8. Reassess pain per policy 9. Teach patient or legal u.s. representative interventions for comforting Note: Evaluation of progress towards goal: Pt reports pain. Continuing scheduled meds and offering PRN pain meds. Will continue to monitor. Problem: Safety Goal: Patient will be injury free during hospitalization Description: INTERVENTIONS: 1. Assess patient's risk for falls and implement fall prevention plan of care per policy 2. Provide and maintain a safe environment 3. Proper use of double Identifiers 4. Medication administration using the 5 rights 5. Hand hygiene 6. Specimens are labeled at the bedside 7. Instruct patient/ patient u.s. representative about use of safety devices 8. Include patient/ patient u.s. representative in decisions related to safety Note: Evaluation of progress towards goal: Pt remains free from falls and safety maintained. Bed alarm on and nonskid footwear applied. Call light, bedside table, and personal belongings within reach. Pt educated on fall risk/ prevention. Encouraged pt to call out for assistance as needed. Will continue to monitor. Problem: Infection Goal: Absence of infection during hospitalization Description: Interventions: 1. Assess and monitor for signs and symptoms of infection 2. Monitor lab/diagnostic results 3. Monitor all insertion sites i.e., indwelling lines, tubes and drains 4. Monitor endotracheal (as able) and nasal secretions for changes in amount and color 5. Administer medications as ordered 6. Instruct and encourage patient and family to use good hand hygiene technique 7. Identify and instruct patient/patient u.s. representative in use of appropriate isolation precautions for identified infection/symptoms 8. Provide and discuss with patient/patient u.s. representative on educational MDRO sheet 9. Encourage and monitor nutritional status daily and consult computer network support specialist if indicated 10. Implement neutropenic guidelines as needed 11. Review exposure to history of communicable disease and recent travel history on admission 12. Encourage annual influenza vaccine 13. Encourage pneumonia vaccine Outcome: Progressing Note: Evaluation of progress towards goal: Pt shows no signs of infection. Will continue to monitor. Problem: Knowledge Deficit Goal: Patient/patient u.s. representative demonstrates understanding of disease process, treatment plan, medications, and discharge instructions Description: INTERVENTIONS 1. Complete learning assessment and assess knowledge base 2. Provide teaching at level of understanding 3. Provide teaching via preferred learning method(s) Outcome: Progressing Note: Evaluation of progress towards goal: patient/patient u.s. representative demonstrates understanding of disease process, treatment plan, medications, and discharge instructions Progressing Not Progressing Adequate for Discharge Completed Problem: Discharge Planning Goal: Discharge to post-acute care, other facility, or home with appropriate resources Description: Patient's goal is: INTERVENTIONS 1. Conduct assessment to determine patient/family and health care team treatment goals, and need for post-acute services based on payer coverage, community resources, and patient preferences, and barriers to discharge 2. Coordinate with Social work, Care Navigation, and Utilization Review to arrange appropriate level of services according to patient's needs based on patient preference and payer coverage in collaboration with the physician and health care team 3. Address psychosocial, clinical, and financial barriers to discharge as identified in assessment in conjunction with the patient/family and health care team 4. Consult appropriate ancillary services (i.e.. PT/OT/ST, etc) as needed 5. Communicate with and update the patient/family, physician, and health care team regarding progress on the discharge plan 6. Identify discharge learning needs (meds, wound care, etc). 7. Arrange for needed discharge transportation as appropriate Outcome: Progressing Note: Evaluation of progress towards goal: Discharge to post-acute care, other facility, or home with appropriate resources Progressing Not Progressing Adequate for Discharge Completed Problem: Potential for Compromised Skin Integrity Goal: Skin integrity is maintained or improved Description: Patient's goal is: INTERVENTIONS 1. Perform initial skin assessment on admission and as needed 2. Turn patient every 2 hours and PRN 3. Relieve pressure to bony prominences 4. Avoid shearing 5. Keep skin clean and dry 6. Alternate a full bath with partial baths for elderly 7. Apply lotion/moisturizer on skin 8. Monitor patient's hygiene practices 9. Float heels 10. Collaborate with interdisciplinary team and initiate plans and interventions as needed Outcome: Progressing Note: Evaluation of progress towards goal: Pt shows no signs of skin breakdown. Pt able to turn self, and encouraging Q2h turns. Linens remain clean and dry. Will continue to monitor. Goal: Patient's nutritional intake is adequate Description: Patient's goal is: INTERVENTIONS 1. Assess and monitor food intake and supplements, patient food preferences, nausea, vomiting, labs, oral cavity (gums, teeth, tongue, mucosa), proper denture fit, and cultural beliefs 2. Monitor for signs of hypoglycemia and hyperglycemia 3. Collaborate with interdisciplinary team and initiate plan and interventions as ordered 4. Monitor patient's weight 5. Assist patient with meals/food selection 6. Assist patient with eating 7. Allow adequate time for meals 8. Provide pleasant environment during mealtime 9. Increase social contact during mealtimes 10. Plan activities to conserve energy 11. Encourage/perform oral hygiene as appropriate 12. Encourage patient to take dietary supplement as ordered 13. Collaborate with clinical computer network support specialist 14. Include patient/ patient's u.s. representative in decisions related to nutrition Outcome: Progressing Note: Evaluation of progress towards goal: Pt nutrition adequate and pt tolerating diet. Encouraging fluids. Will continue to monitor. Problem: Potential for Compromised Skin Integrity Goal: Patient's nutritional intake is adequate Description: Patient's goal is: INTERVENTIONS 1. Assess and monitor food intake and supplements, patient food preferences, nausea, vomiting, labs, oral cavity (gums, teeth, tongue, mucosa), proper denture fit, and cultural beliefs 2. Monitor for signs of hypoglycemia and hyperglycemia 3. Collaborate with interdisciplinary team and initiate plan and interventions as ordered 4. Monitor patient's weight 5. Assist patient with meals/food selection 6. Assist patient with eating 7. Allow adequate time for meals 8. Provide pleasant environment during mealtime 9. Increase social contact during mealtimes 10. Plan activities to conserve energy 11. Encourage/perform oral hygiene as appropriate 12. Encourage patient to take dietary supplement as ordered 13. Collaborate with clinical computer network support specialist 14. Include patient/ patient's u.s. representative in decisions related to nutrition Outcome: Progressing Note: Evaluation of progress towards goal: Pt nutrition adequate and pt tolerating diet. Encouraging fluids. Will continue to monitor. Problem: Urinary Incontinence Goal: Perineal skin integrity is maintained or improved Description: INTERVENTIONS 1. Assess genitourinary system, perineal skin, labs (urinalysis), and history of incontinence to include past management, aggravating, and alleviating factors 2. Keep skin clean and dry 3. Apply skin protectant 4. Develop skin care regimen 5. Provide privacy when changing patients incontinence device to maintain their dignity 6. Consider placing an indwelling catheter 7. Collaborate with interdisciplinary team and initiate plans and interventions as needed Outcome: Progressing Note: Evaluation of progress towards goal: Perineal skin integrity is maintained or improved Progressing Not Progressing Adequate for Discharge Completed Expected end: Problem: Moderate - High Risk Fall Score Description: Mejia Fall Score of =/> 25 or indicated by [facility] Assessment Goal: Patient should be free from fall Description: Interventions: 1. [place] to environment 2. Hourly rounds addressing the 4 P's (Pain, Positioning, Possessions, Potty) 3. Clear area of hazards (spills, clutter, electrical cords, unnecessary equipment) 4. Place equipment (bed & TV controls, call light, phone, urinal) within reach 5. Encourage patient to wear glasses and hearing aides as appropriate 6. Maintain bed in lowest position 7. Lock wheels on bed/wheelchair 8. Provide adequate lighting, including night light 9. Assess need for additional bedding, food/fluids, pain med's prior to sleep/routinely 10. Provide gripper slippers or personal non-skid footwear 11. Teach patient and patient u.s. representative to maintain environment for safety and engage in all aspects of fall prevention program 12. Remind patient to call for help before getting out of bed 13. Initiate bed/chair/exit alarms supportive devices as appropriate, (chair wedge, no-skid floor mat, raised edge mattress, hip protectors) 14. Locate patient bed assignment for optimal visualization 15. Evaluate and identify Safe Patient Handling Equipment needs 16. Provide supervision when out of bed or chair 17. Utilize gait belt as needed to assist with ambulation 18. Place adaptive equipment (cane, walker) within reach 19. Request patient u.s. representative bring adaptive equipment/mobility aids from home or obtain and provide as needed 20. Consult pharmacy regarding effects of med's affecting mobility, cognition, and alternatives 21. Obtain physician order for PT if risk factors associated with mobility are present 22. Obtain physician order for OT as appropriate 23. Utilize diversional activities 24. Educate patient and patient u.s. representative how to maintain a safe environment during visitation times (notify nurse prior to leaving bedside) 25. Consider appropriateness of medical or non-medical pathologist 26. Set up voiding schedule as appropriate (every 2 hours) Note: Evaluation of progress towards goal: Pt remains free from falls and safety maintained. Will continue to monitor. Problem: Glucose Imbalance Goal: Clinical indication of glucose balance is achieved Description: Patient's goal is: INTERVENTIONS 1. Monitor blood glucose levels as ordered 2. Administer medications as ordered 3. Notify physician of ineffective treatment plan Outcome: Progressing Note: Evaluation of progress towards goal: Clinical indication of glucose balance is achieved Progressing Not Progressing Adequate for Discharge Completed Goal: Patient's discharge needs are met Description: Patient's goal is: INTERVENTIONS 1. Assess patient for self-management skills 2. Encourage participation in diabetes management 3. Identify potential discharge barriers on admission and throughout hospital stay 4. Involve patient/S.O. in discharge planning process 5. Communicate referral to family life educator as appropriate 6. Communicate referral to computer network support specialist as appropriate 7. Collaborate with case management/social secretary for discharge needs Outcome: Progressing Note: Evaluation of progress towards goal: atient's discharge needs are met Progressing Not Progressing Adequate for Discharge Completed Problem: Glucose Imbalance Goal: Patient's discharge needs are met Description: Patient's goal is: INTERVENTIONS 1. Assess patient for self-management skills 2. Encourage participation in diabetes management 3. Identify potential discharge barriers on admission and throughout hospital stay 4. Involve patient/S.O. in discharge planning process 5. Communicate referral to family life educator as appropriate 6. Communicate referral to computer network support specialist as appropriate 7. Collaborate with case management/social secretary for discharge needs Outcome: Progressing Note: Evaluation of progress towards goal: atient's discharge needs are met Progressing Not Progressing Adequate for Discharge Completed [facility] 09-02-2023 History of Presen t illness Narrative Images from the original note were not included. [facility] [address] [facility] [id number] Hospital Medicine Progress Note Patient: Janay Schilling Date of : 1950 Room: PCP: LUCIE BARRY MD Admission date: 09/01/2023 2:44 PM Encounter date: 09/02/23 Hospital Day: 2 SUBJECTIVE Chief complaints: No chief complaint on file. Interval History: No overnight events or new complaints. Patient currently getting dialysis treatment., difficult to arouse. While awake, patient was only able to state her name. She did become hypotensive during treatment per HD RN. Review of Systems Constitutional: Fatigue HENT: Negative for congestion, dental problem, hearing loss, rhinorrhea, sore throat, trouble swallowing and voice change. Eyes: Negative for visual disturbance. Respiratory: Negative for cough, sputum production, shortness of breath and wheezing. Cardiovascular: Negative for chest pain, palpitations and leg swelling. Gastrointestinal: Negative for abdominal pain, blood in stool, melena, constipation, diarrhea, nausea and vomiting. Genitourinary: Negative for difficulty urinating, dysuria, enuresis, frequency and hematuria. Musculoskeletal: Negative for arthralgias, joint swelling and myalgias. Skin: Negative for color change, rash and wound. Neurological: Negative for dizziness, seizures, syncope, speech difficulty, weakness, numbness and headaches. Hematological: Negative for adenopathy. Does not bruise/bleed easily. Psychiatric/Behavioral: Negative for dysphoric mood and sleep disturbance. The patient is not nervous/anxious. OBJECTIVE BP 138/46 Pulse 75 Temp 36.8 C (98.3 F) (Oral) Resp 18 Ht 157.5 cm (5' 2.01 ) Wt 106.5 kg (234 lb 12.6 oz) SpO2 100% BMI 42.93 kg/m Temp: [36.5 C (97.7 F)-36.9 C (98.5 F)] 36.8 C (98.3 F) Pulse: [65-81] 75 Resp: [17-20] 18 BP: (72-154)/(36-69) 138/46 SpO2: [98 %-100 %] 100 % O2 Device: Nasal cannula O2 Flow Rate (L/min): [2 L/min-3 L/min] 2 L/min Intake/Output Summary (Last 24 hours) at 09/02/2023 1629 Last data filed at 09/02/2023 1230 Gross per 24 hour Intake 1640 ml Output 1800 ml Net -160 ml Physical Exam Constitutional: General: No acute distress. Cardiovascular: Rate and Rhythm: Normal rate and regular rhythm. Heart sounds: Normal heart sounds, S1 normal and S2 normal. Pulmonary: Effort: Pulmonary effort is normal. Breath sounds: Normal breath sounds. Abdominal: General: Bowel sounds are normal. Palpations: Abdomen is soft. Tenderness: There is no abdominal tenderness. Musculoskeletal: Right lower leg: No edema. Left lower leg: No edema. Skin: General: Skin is warm and dry. Coloration: Skin is not pale. Neurological: General: No focal deficit present. Psychiatric: Mood and Affect: Mood normal. Behavior: Behavior normal. Medications Scheduled: atorvastatin, 80 mg, oral, Daily B complex-vitamin C-folic acid, 1 tablet, oral, Daily bumetanide, 0.5 mg, oral, Daily carvediloL, 3.125 mg, oral, HS darbepoetin axel (ARANESP) injection, 100 mcg, subcutaneous, Weekly docusate sodium, 100 mg, oral, BID insulin glargine, 12 Units, subcutaneous, Daily insulin lispro, 2-10 Units, subcutaneous, TID with meals insulin lispro, 2-8 Units, subcutaneous, Nightly isosorbide mononitrate, 30 mg, oral, Daily levothyroxine, 188 mcg, oral, Daily [START ON 09/03/2023] midodrine, 5 mg, oral, Once per day on Tuesday pantoprazole, 40 mg, oral, QAM AC polyethylene glycol, 17 g, oral, Daily sennosides-docusate sodium, 1 tablet, oral, BID sevelamer, 800 mg, oral, BID with meals sodium chloride, 3 mL, intravenous, Q12H MARC Infusions: dextrose 5 % in water, 100 mL/hr sodium chloride 0.9 %, 20 mL/hr As Needed: acetaminophen albuterol dextrose dextrose 5 % in water dextrose 50 % in water (D50W) glucagon (human recombinant) guaiFENesin midodrine ondansetron ODT sodium chloride sodium chloride sodium chloride 0.9 % Allergies: Amoxicillin and Doxycycline Labs Recent Results (from the past 24 hour(s)) Bedside Glucose *Place/Obtain serum glucose if >500(>600 [facility]) per glucometer. Collection Time: 09/01/23 4:30 PM Result Value Ref Range Bedside glucose 118 (H) 65 - 99 mg/dL Potassium Collection Time: 09/01/23 8:44 PM Result Value Ref Range Potassium, Bld 5.5 (H) 3.5 - 5.0 mmol/L Bedside Glucose *Place/Obtain serum glucose if >500(>600 [facility]) per glucometer. Collection Time: 09/01/23 9:29 PM Result Value Ref Range Bedside glucose 160 (H) 65 - 99 mg/dL Hemoglobin and hematocrit, blood Collection Time: 09/02/23 12:09 AM Result Value Ref Range Hemoglobin 7.0 (L) 11.7 - 15.5 g/dL Hematocrit 21.4 (L) 35 - 47 % Comprehensive metabolic panel Collection Time: 09/02/23 3:42 AM Result Value Ref Range Sodium 135 134 - 146 mmol/L Potassium, Bld 5.4 (H) 3.5 - 5.0 mmol/L Chloride 103 98 - 109 mmol/L CO2 23 22 - 32 mmol/L Anion gap 9 5 - 15 mmol/L BUN 77 (H) 5 - 27 mg/dL Creatinine 6.31 (H) 0.40 - 1.00 mg/dL Glucose 126 (H) 65 - 99 mg/dL Calcium 8.6 8.5 - 10.5 mg/dL Total Protein 5.9 (L) 6.0 - 8.0 g/dL Albumin 2.8 (L) 3.2 - 5.3 g/dL Alkaline Phosphatase 69 39 - 130 U/L AST 13 0 - 41 U/L ALT 18 0 - 31 U/L Total bilirubin 0.5 0.3 - 1.2 mg/dL eGFR (CKD-EPI)non-race dependent 7 (L) >59 ml/min/1.73sq.m Magnesium Collection Time: 09/02/23 3:42 AM Result Value Ref Range Magnesium 2.2 1.8 - 2.6 mg/dL CBC auto differential Collection Time: 09/02/23 3:42 AM Result Value Ref Range White Blood Cells 4.3 4.0 - 11.0 X10E9/L RBC count 2.03 (L) 3.80 - 5.20 X10E12/L Hemoglobin 7.0 (L) 11.7 - 15.5 g/dL Hematocrit 21.6 (L) 35 - 47 % MCV 106 (H) 80 - 100 fL MCH 34.3 (H) 27 - 34 pg MCHC 32.2 32 - 36 g/dL RDW 18.5 (H) 11.5 - 15.0 % Platelets 125 (L) 150 - 450 X10E9/L MPV 8.3 7 - 12 fL % neutrophils 54.0 % % lymphocytes 28.1 % % monocytes 10.7 % % eosinophils 6.0 % % Basophils 1.2 % Neutrophils Absolute (A) 2.3 1.5 - 6.6 X10E9/L Lymphocytes Absolute 1.2 1.0 - 3.5 X10E9/L Monocytes Absolute 0.5 0 - 0.9 X10E9/L Eosinophils Absolute 0.3 0.0 - 0.4 X10E9/L Basophils Absolute 0.1 0.0 - 0.2 X10E9/L Bedside Glucose *Place/Obtain serum glucose if >500(>600 [facility]) per glucometer. Collection Time: 09/02/23 8:04 AM Result Value Ref Range Bedside glucose 137 (H) 65 - 99 mg/dL Hepatitis B Surface Antibody Quantitation Collection Time: 09/02/23 9:57 AM Result Value Ref Range Anti HBs quantitative <8.00 mIU/mL Hepatitis B surface antigen Collection Time: 09/02/23 9:57 AM Result Value Ref Range Hepatitis B Surface Ag Negative Negative^Negative Bedside Glucose *Place/Obtain serum glucose if >500(>600 [facility]) per glucometer. Collection Time: 09/02/23 11:43 AM Result Value Ref Range Bedside glucose 111 (H) 65 - 99 mg/dL Hemoglobin and hematocrit, blood Collection Time: 09/02/23 12:59 PM Result Value Ref Range Hemoglobin 7.7 (L) 11.7 - 15.5 g/dL Hematocrit 23.9 (L) 35 - 47 % Radiology No results found. HOSPITAL PROBLEM LIST Principal Problem: Anemia Active Problems: Essential hypertension Anemia of chronic disease Diabetes type 2, controlled ([facility]) ESRD (end stage renal disease) on dialysis ([facility]) ASSESSMENT & PLAN Anemia/anemia of chronic disease HGB 6.3 Received 1U PRBC at [facility] Repeat HGB 7.6 H&H Q8H Transfuse 1U PRBC for HGB <7 Aranesp injection administered today. Nephrology will monitor H&H and adjust erythropoietin PRN End-stage renal disease on HD Nephrology consult for HD mgmt T,TH,S schedule HD this am Plans for HD in am, DC after Essential hypertension Resume Coreg, Imdur Hold Losartan d/t hyperkalemia Type 2 diabetes mellitus Sliding scale per protocol Lantus 12U in am Admission orders placed and home medications reconciled. DVT/VTE prophylaxis: SCD's and no pharmacologic prophylaxis due to symptomatic anemia GI prophylaxis: add pantoprazole. PT/OT to evaluate and treat. DC planning: Pending clinical course. IRINA Villalobos 09/02/2023 4:29 PM [facility] 7AM-7PM (all facilities): EpicChat or page through [employer]. 7PM-7AM ([facility], [facility]): EpicChat or page, [phone]. 7PM-7AM ([place], [place], [place], [place] and [facility] Rehab): EpicChat or page through [employer]. IRINA Villalobos 09/02/23 1883 Physician Attestation I, Dona Kincaid MD, personally performed a face to face diagnostic evaluation on this patient. I have reviewed the note authored by the advance practice provider including history, review of systems,physical examination,medical decision making and agree with the assessment and plan as written. I have seen and evaluated the patient, I have repeated the flores portions of the physical exam and concur with the KYLE findings. I have reviewed all laboratory findings and imaging reports/films. I agree with the plan as noted. documented [facility] Progress note Formatting of t his note is different from the original. Images from the original note were not included. DISCHARGE PLANNING NOTE Services Requested: Services Requested Discharge Disposition: SNF, Outpatient Dialysis SNF Name: [facility] Outpatient Dialysis [facility] Phone Number: Does the patient need discharge transportation arranged?: Yes Transportation Arranged: Ambulance Patient choice offered: Yes List Provided: Patient declined Patient Declined: Active with Provider Initial DC Assessment Completed: Yes DC Planning Complete Discharge Milestones: Yes Patient Goals: Patient/Caregiver Goals Patient/Caregiver Goals: Residential Care Skilled Nuring Care: Skilled Care (Short Term) Goals: Goals SNF (pt-stated) Evaluation of progress towards goal: Pt will return to [facility] upon discharge. Pt was discussed in Transition Rounds. Chart reviewed. Pt was admitted under Observation status for Anemia. Therapy was not ordered. SW spoke to pt who said she will return to [facility] upon discharge. Pt gets Dialysis at [facility]. Pt has support from family. Pt will need ambulance back to [place]. DAVIN did speak to Sloane from [place]. Pt can return at anytime. Pt denied need for food , Rx and appointment assistance. SW will continue to follow patient. [facility] 09-02-2023 Procedure note Associated Ord er(s): HEMODIALYSIS / ULTRAFILTRATION - TABLO Tolerated 3.5 hours of HD poor. Required 400ml saline, miododrine and decrease in UFR for hypotension. Nephrology INSTALLATION AND SERVICE TECHNICIAN notified of above and that I was unable to reach fluid removal goal of 3L AVF functioned well at [id number] Dry wt 98.6kg Post wt 105.7kg Fluid removal 1.9L Post bp 135/56 [facility] 09-02-2023 Progress note Formatting of t his note might be different from the original. DISCHARGE PLANNING NOTE Referral sent to. [facility] ([facility]) (P# ; F# ) [facility] Plan of care note Problem: Pain Goal: Patient goal is pain score less than 5, able to rest, and participant in treatment plan as appropriate Description: INTERVENTIONS: 1. Encourage patient or legal u.s. representative to report early pain and ask for pain medicine when needed 2. Assess pain using appropriate pain scale and include the scale used when documenting 3. Administer analgesics based on type and severity of pain and evaluate response within appropriate time frame 4. Implement non-pharmacological measures as appropriate and evaluate response 5. Consider cultural and social influences on pain and pain management 6. Notify LIP if interventions ineffective or patient reports new pain 7. Monitor vital signs including pulse ox, end-tidal CO2 based on pain intervention 8. Reassess pain per policy 9. Teach patient or legal u.s. representative interventions for comforting Outcome: Progressing Note: Evaluation of progress towards goal: Pt able to report pain according to 0/10 pain scale. Medicating patient for pain per orders. Comfort maintained. Will continue to monitor. Problem: Safety Goal: Patient will be injury free during hospitalization Description: INTERVENTIONS: 1. Assess patient's risk for falls and implement fall prevention plan of care per policy 2. Provide and maintain a safe environment 3. Proper use of double Identifiers 4. Medication administration using the 5 rights 5. Hand hygiene 6. Specimens are labeled at the bedside 7. Instruct patient/ patient u.s. representative about use of safety devices 8. Include patient/ patient u.s. representative in decisions related to safety Outcome: Progressing Note: Evaluation of progress towards goal: Safety measures initiated/maintained. Pt remains safe from harm/injury/falls. Will continue to monitor. Problem: Infection Goal: Absence of infection during hospitalization Description: Interventions: 1. Assess and monitor for signs and symptoms of infection 2. Monitor lab/diagnostic results 3. Monitor all insertion sites i.e., indwelling lines, tubes and drains 4. Monitor endotracheal (as able) and nasal secretions for changes in amount and color 5. Administer medications as ordered 6. Instruct and encourage patient and family to use good hand hygiene technique 7. Identify and instruct patient/patient u.s. representative in use of appropriate isolation precautions for identified infection/symptoms 8. Provide and discuss with patient/patient u.s. representative on educational MDRO sheet 9. Encourage and monitor nutritional status daily and consult computer network support specialist if indicated 10. Implement neutropenic guidelines as needed 11. Review exposure to history of communicable disease and recent travel history on admission 12. Encourage annual influenza vaccine 13. Encourage pneumonia vaccine Outcome: Progressing Note: Evaluation of progress towards goal: Patient VS WNL, remains afebrile for shift. Labs monitored per orders, hand hygiene encouraged. No S/S of infection at this time. Will continue to monitor. Problem: Knowledge Deficit Goal: Patient/patient u.s. representative demonstrates understanding of disease process, treatment plan, medications, and discharge instructions Description: INTERVENTIONS 1. Complete learning assessment and assess knowledge base 2. Provide teaching at level of understanding 3. Provide teaching via preferred learning method(s) Outcome: Progressing Note: Evaluation of progress towards goal: Plan of care discussed with pt throughout shift. Updated on all orders and changes. Verbalizes understanding and all questions/concerns addressed. Problem: Discharge Planning Goal: Discharge to post-acute care, other facility, or home with appropriate resources Description: Patient's goal is: INTERVENTIONS 1. Conduct assessment to determine patient/family and health care team treatment goals, and need for post-acute services based on payer coverage, community resources, and patient preferences, and barriers to discharge 2. Coordinate with Social work, Care Navigation, and Utilization Review to arrange appropriate level of services according to patient's needs based on patient preference and payer coverage in collaboration with the physician and health care team 3. Address psychosocial, clinical, and financial barriers to discharge as identified in assessment in conjunction with the patient/family and health care team 4. Consult appropriate ancillary services (i.e.. PT/OT/ST, etc) as needed 5. Communicate with and update the patient/family, physician, and health care team regarding progress on the discharge plan 6. Identify discharge learning needs (meds, wound care, etc). 7. Arrange for needed discharge transportation as appropriate Outcome: Progressing Note: Evaluation of progress towards goal: Discharge planning in progress. Discussed daily at DTRs. Problem: Potential for Compromised Skin Integrity Goal: Skin integrity is maintained or improved Description: Patient's goal is: INTERVENTIONS 1. Perform initial skin assessment on admission and as needed 2. Turn patient every 2 hours and PRN 3. Relieve pressure to bony prominences 4. Avoid shearing 5. Keep skin clean and dry 6. Alternate a full bath with partial baths for elderly 7. Apply lotion/moisturizer on skin 8. Monitor patient's hygiene practices 9. Float heels 10. Collaborate with interdisciplinary team and initiate plans and interventions as needed Outcome: Progressing Goal: Patient's nutritional intake is adequate Description: Patient's goal is: INTERVENTIONS 1. Assess and monitor food intake and supplements, patient food preferences, nausea, vomiting, labs, oral cavity (gums, teeth, tongue, mucosa), proper denture fit, and cultural beliefs 2. Monitor for signs of hypoglycemia and hyperglycemia 3. Collaborate with interdisciplinary team and initiate plan and interventions as ordered 4. Monitor patient's weight 5. Assist patient with meals/food selection 6. Assist patient with eating 7. Allow adequate time for meals 8. Provide pleasant environment during mealtime 9. Increase social contact during mealtimes 10. Plan activities to conserve energy 11. Encourage/perform oral hygiene as appropriate 12. Encourage patient to take dietary supplement as ordered 13. Collaborate with clinical computer network support specialist 14. Include patient/ patient's u.s. representative in decisions related to nutrition Outcome: Progressing Problem: Urinary Incontinence Goal: Perineal skin integrity is maintained or improved Description: INTERVENTIONS 1. Assess genitourinary system, perineal skin, labs (urinalysis), and history of incontinence to include past management, aggravating, and alleviating factors 2. Keep skin clean and dry 3. Apply skin protectant 4. Develop skin care regimen 5. Provide privacy when changing patients incontinence device to maintain their dignity 6. Consider placing an indwelling catheter 7. Collaborate with interdisciplinary team and initiate plans and interventions as needed Outcome: Progressing Problem: Moderate - High Risk Fall Score Description: Mejia Fall Score of =/> 25 or indicated by [facility] Assessment Goal: Patient should be free from fall Description: Interventions: 1. [place] to environment 2. Hourly rounds addressing the 4 P's (Pain, Positioning, Possessions, Potty) 3. Clear area of hazards (spills, clutter, electrical cords, unnecessary equipment) 4. Place equipment (bed & TV controls, call light, phone, urinal) within reach 5. Encourage patient to wear glasses and hearing aides as appropriate 6. Maintain bed in lowest position 7. Lock wheels on bed/wheelchair 8. Provide adequate lighting, including night light 9. Assess need for additional bedding, food/fluids, pain med's prior to sleep/routinely 10. Provide gripper slippers or personal non-skid footwear 11. Teach patient and patient u.s. representative to maintain environment for safety and engage in all aspects of fall prevention program 12. Remind patient to call for help before getting out of bed 13. Initiate bed/chair/exit alarms supportive devices as appropriate, (chair wedge, no-skid floor mat, raised edge mattress, hip protectors) 14. Locate patient bed assignment for optimal visualization 15. Evaluate and identify Safe Patient Handling Equipment needs 16. Provide supervision when out of bed or chair 17. Utilize gait belt as needed to assist with ambulation 18. Place adaptive equipment (cane, walker) within reach 19. Request patient u.s. representative bring adaptive equipment/mobility aids from home or obtain and provide as needed 20. Consult pharmacy regarding effects of med's affecting mobility, cognition, and alternatives 21. Obtain physician order for PT if risk factors associated with mobility are present 22. Obtain physician order for OT as appropriate 23. Utilize diversional activities 24. Educate patient and patient u.s. representative how to maintain a safe environment during visitation times (notify nurse prior to leaving bedside) 25. Consider appropriateness of medical or non-medical pathologist 26. Set up voiding schedule as appropriate (every 2 hours) Outcome: Progressing Note: Evaluation of progress towards goal: Bed in low position and locked, non slip footwear on when out of bed, call light within reach, hourly rounding to address patients needs, pt instructed to use call light for any needs/assistance. Pt free from falls/injury at this time. Safety maintained. Problem: Glucose Imbalance Goal: Clinical indication of glucose balance is achieved Description: Patient's goal is: INTERVENTIONS 1. Monitor blood glucose levels as ordered 2. Administer medications as ordered 3. Notify physician of ineffective treatment plan Outcome: Progressing Note: Evaluation of progress towards goal: Blood glucose levels monitored per orders, Diabetic medications administered per orders. Goal: Patient's discharge needs are met Description: Patient's goal is: INTERVENTIONS 1. Assess patient for self-management skills 2. Encourage participation in diabetes management 3. Identify potential discharge barriers on admission and throughout hospital stay 4. Involve patient/S.O. in discharge planning process 5. Communicate referral to family life educator as appropriate 6. Communicate referral to computer network support specialist as appropriate 7. Collaborate with case management/social secretary for discharge needs Outcome: Progressing Note: Evaluation of progress towards goal: Discharge planning in progress. Discussed daily at DTRs. [facility] 09-01-2023 Plan of care note Problem: Pain Goal: Patient goal is pain score less than 4, able to rest, and participant in treatment plan as appropriate Description: INTERVENTIONS: 1. Encourage patient or legal u.s. representative to report early pain and ask for pain medicine when needed 2. Assess pain using appropriate pain scale and include the scale used when documenting 3. Administer analgesics based on type and severity of pain and evaluate response within appropriate time frame 4. Implement non-pharmacological measures as appropriate and evaluate response 5. Consider cultural and social influences on pain and pain management 6. Notify LIP if interventions ineffective or patient reports new pain 7. Monitor vital signs including pulse ox, end-tidal CO2 based on pain intervention 8. Reassess pain per policy 9. Teach patient or legal u.s. representative interventions for comforting Outcome: Progressing Note: Evaluation of progress towards goal: Patient able to report pain appropriately using the 0/10 pain scale. Problem: Safety Goal: Patient will be injury free during hospitalization Description: INTERVENTIONS: 1. Assess patient's risk for falls and implement fall prevention plan of care per policy 2. Provide and maintain a safe environment 3. Proper use of double Identifiers 4. Medication administration using the 5 rights 5. Hand hygiene 6. Specimens are labeled at the bedside 7. Instruct patient/ patient u.s. representative about use of safety devices 8. Include patient/ patient u.s. representative in decisions related to safety Outcome: Progressing Note: Evaluation of progress towards goal: Patient has been educated on using the call light and the bed alarm is on at this time. Problem: Knowledge Deficit Goal: Patient/patient u.s. representative demonstrates understanding of disease process, treatment plan, medications, and discharge instructions Description: INTERVENTIONS 1. Complete learning assessment and assess knowledge base 2. Provide teaching at level of understanding 3. Provide teaching via preferred learning method(s) Outcome: Progressing Note: Evaluation of progress towards goal: Patient shows acceptance and understanding with the plan of care at this time. T [facility] 09-01-2023 Nurse Note Membership Sales Manager spoke with Dr Masterson office. Plan is to get dialysis treatment 09/01. Hgb recheck in AM 09/01 as well. Hotel Staff Member notified of plan for dialysis. [facility] Plan of care note Problem: Pain Goal: Patient goal is pain score less than 4, able to rest, and participant in treatment plan as appropriate Description: INTERVENTIONS: 1. Encourage patient or legal u.s. representative to report early pain and ask for pain medicine when needed 2. Assess pain using appropriate pain scale and include the scale used when documenting 3. Administer analgesics based on type and severity of pain and evaluate response within appropriate time frame 4. Implement non-pharmacological measures as appropriate and evaluate response 5. Consider cultural and social influences on pain and pain management 6. Notify LIP if interventions ineffective or patient reports new pain 7. Monitor vital signs including pulse ox, end-tidal CO2 based on pain intervention 8. Reassess pain per policy 9. Teach patient or legal u.s. representative interventions for comforting Outcome: Progressing Note: Evaluation of progress towards goal: Patient denies pain and understands therapy to achieve adequate comfort level. Problem: Safety Goal: Patient will be injury free during hospitalization Description: INTERVENTIONS: 1. Assess patient's risk for falls and implement fall prevention plan of care per policy 2. Provide and maintain a safe environment 3. Proper use of double Identifiers 4. Medication administration using the 5 rights 5. Hand hygiene 6. Specimens are labeled at the bedside 7. Instruct patient/ patient u.s. representative about use of safety devices 8. Include patient/ patient u.s. representative in decisions related to safety Outcome: Progressing Note: Evaluation of progress towards goal: Patient calls out appropriately for assistance and call light is within reach to remain injury free during hospitalization. Problem: Infection Goal: Absence of infection during hospitalization Description: Interventions: 1. Assess and monitor for signs and symptoms of infection 2. Monitor lab/diagnostic results 3. Monitor all insertion sites i.e., indwelling lines, tubes and drains 4. Monitor endotracheal (as able) and nasal secretions for changes in amount and color 5. Administer medications as ordered 6. Instruct and encourage patient and family to use good hand hygiene technique 7. Identify and instruct patient/patient u.s. representative in use of appropriate isolation precautions for identified infection/symptoms 8. Provide and discuss with patient/patient u.s. representative on educational MDRO sheet 9. Encourage and monitor nutritional status daily and consult computer network support specialist if indicated 10. Implement neutropenic guidelines as needed 11. Review exposure to history of communicable disease and recent travel history on admission 12. Encourage annual influenza vaccine 13. Encourage pneumonia vaccine Outcome: Progressing Note: Evaluation of progress towards goal: Patient is placed in standard precautions, monitored for WBC elevation, and receiving ATB therapy to prevent further infection during hospitalization. Problem: Knowledge Deficit Goal: Patient/patient u.s. representative demonstrates understanding of disease process, treatment plan, medications, and discharge instructions Description: INTERVENTIONS 1. Complete learning assessment and assess knowledge base 2. Provide teaching at level of understanding 3. Provide teaching via preferred learning method(s) Outcome: Progressing Note: Evaluation of progress towards goal: Patient and representatives verbalizes understanding of treatment plan and medication therapy for hospitalization. Problem: Potential for Compromised Skin Integrity Goal: Skin integrity is maintained or improved Description: Patient's goal is: INTERVENTIONS 1. Perform initial skin assessment on admission and as needed 2. Turn patient every 2 hours and PRN 3. Relieve pressure to bony prominences 4. Avoid shearing 5. Keep skin clean and dry 6. Alternate a full bath with partial baths for elderly 7. Apply lotion/moisturizer on skin 8. Monitor patient's hygiene practices 9. Float heels 10. Collaborate with interdisciplinary team and initiate plans and interventions as needed Outcome: Progressing Note: Evaluation of progress towards goal: Patient is turned every 2 hours, pillow support provided and reddened area cleansed and powdered. Problem: Glucose Imbalance Goal: Clinical indication of glucose balance is achieved Description: Patient's goal is: INTERVENTIONS 1. Monitor blood glucose levels as ordered 2. Administer medications as ordered 3. Notify physician of ineffective treatment plan Outcome: Progressing Note: Evaluation of progress towards goal: Patient maintains glucose balance via fingerstick blood sugar checks, diet control and insulin administration. Additional Comments: [facility] 09-01-2023 History and physical note Images from the original note were not included. [facility] [address] [place] [id number] Hospital Medicine History & Physical Patient: Janay Schilling Date of : 1950 Room: [address] [place] [address] PCP: LUCIE BARRY MD Admission date: 09/01/2023 2:44 PM Encounter date: 09/01/23 Hospital Day: 1 SUBJECTIVE Janay Schilling is a 73 y.o. female who presents with ESRD on dialysis Tuesday, and Tuesday via left upper extremity AV fistula, hypertension, hyperlipidemia, heart failure, diabetes presenting to the emergency department for evaluation for abnormal lab as an outpatient. Hemoglobin less than 7. Dialysis refused her unless she gets transfused. Has a history of anemia of chronic disease of which she gets aranesp injections as an outpatient but got lost to follow up and just restarted them within the last month. She reports some fatigue and weakness otherwise denies chest pain, shortness of breath. Last dialysis was 2 days ago. Misssed Dialysis session today. Denies black stool. MANAGER SYSTEMS 5.74. K+ 5.4. HGB 6.3. Allergies: Amoxicillin and Doxycycline Prior to Admission medications Medication Sig Start Date End Date Taking? Authorizing Provider acetaminophen (TYLENOL) 500 mg tablet Take 1 tablet (500 mg total) by mouth every 6 (six) hours as needed for pain. Not In System Ref Prov albuterol (ACCUNEB) 0.63 mg/3 mL nebulizer solution Inhale 3 mL (0.63 mg total) by nebulization every 6 (six) hours as needed for wheezing. Patient not taking: Reported on 11/01/2022 Not In System Ref Prov amLODIPine (NORVASC) 10 mg tablet Take 1 tablet (10 mg total) by mouth in the morning. Not In System Ref Prov atorvastatin (LIPITOR) 40 mg tablet Take 2 tablets (80 mg total) by mouth in the morning. Not In System Ref Prov atorvastatin (LIPITOR) 80 mg tablet Take 0.5 tablets (40 mg total) by mouth in the morning. Patient not taking: Reported on 11/01/2022 10/25/22 Not In System Ref Prov bisacodyL (DULCOLAX) 10 mg suppository Insert 1 suppository (10 mg total) into the rectum as needed for constipation. Patient not taking: Reported on 01/04/2023 Not In System Ref Prov bumetanide (BUMEX) 0.5 mg tablet Take 2 tablets (1 mg total) by mouth 2 (two) times a day. Patient taking differently: Take 1 tablet (0.5 mg total) by mouth daily. 07/18/19 Negro Elder MD carvediloL (COREG) 3.125 mg tablet Take 1 tablet (3.125 mg total) by mouth once daily at bedtime. Hold for HR less than 60 10/15/22 Not In System Ref Prov carvediloL (COREG) 6.25 mg tablet Take 6.25 mg by mouth 2 (two) times a day with meals. Patient not taking: Reported on 11/01/2022 Not In System Ref Prov cyclobenzaprine (FLEXERIL) 5 mg tablet Take 2 tablets (10 mg total) by mouth 3 (three) times a day as needed for muscle spasms. Patient not taking: Reported on 11/01/2022 Not In System Ref Prov dextrose 40 % gel Take 37.5 mL (15 g total) by mouth once. Patient not taking: Reported on 11/01/2022 Not In System Ref Prov docusate sodium (COLACE) 100 mg capsule Take 1 capsule (100 mg total) by mouth in the morning and 1 capsule (100 mg total) before bedtime. Not In System Ref Prov ergocalciferol (DRISDOL) 1,250 mcg (50,000 unit) capsule Take 1 capsule (50,000 Units total) by mouth in the morning. Give 1 capsule by mouth one time daily starting on the and ending on the every month.. Not In System Ref Prov insulin glargine-yfgn 100 unit/mL solution Inject 12 Units under the skin in the morning. 07/26/22 Not In System Ref Prov ipratropium/albuterol sulfate (IPRATROPIUM-ALBUTEROL INHL) Inhale as needed. Patient not taking: Reported on 11/01/2022 Not In System Ref Prov isosorbide mononitrate (IMDUR) 30 mg 24 hr tablet Take 1 tablet (30 mg total) by mouth daily. 07/19/19 Negro Elder MD levothyroxine (SYNTHROID, LEVOTHROID) 125 MCG tablet Take 150 mcg by mouth in the morning. Not In System Ref Prov loperamide (IMODIUM A-D) 2 mg tablet Take 1 tablet (2 mg total) by mouth 4 (four) times a day as needed for diarrhea. Patient not taking: Reported on 11/01/2022 Not In System Ref Prov loratadine (CLARITIN) 10 mg tablet Take 1 tablet (10 mg total) by mouth as needed. Patient not taking: Reported on 01/04/2023 Not In System Ref Prov losartan (COZAAR) 50 mg tablet Take 1 tablet (50 mg total) by mouth. Mon, Wed, Fri, Sun 10/07/22 Not In System Ref Prov midodrine (PROAMATINE) 5 mg tablet Take 1 tablet (5 mg total) by mouth. One tablet, one time daily, on days , , and Tue. Hold if SMP is greater than 110 Not In System Ref Prov ondansetron (ZOFRAN) 4 mg tablet Take 1 tablet (4 mg total) by mouth every 8 (eight) hours as needed for nausea or vomiting. Patient not taking: Reported on 01/04/2023 Not In System Ref Prov polyethylene glycol (MIRALAX) 17 gram/dose powder Take 17 g by mouth in the morning. Not In System Ref Prov sertraline (ZOLOFT) 100 mg tablet Take 2 tablets (200 mg total) by mouth in the morning. Not In System Ref Prov sevelamer (RENVELA) 800 mg tablet Take 1 tablet (800 mg total) by mouth in the morning and 1 tablet (800 mg total) in the evening. Take with meals. Not In System Ref Prov SITagliptin (JANUVIA) 50 mg tablet Take 50 mg by mouth daily. Patient not taking: Reported on 11/01/2022 Not In System Ref Prov sodium chloride (OCEAN) 0.65 % nasal spray Administer 2 sprays into each nostril 2 (two) times a day. Patient not taking: Reported on 11/01/2022 Not In System Ref Prov Past Medical History: Patient has a past medical history of Anemia, unspecified, Cellulitis, Cellulitis, unspecified, CHF (congestive heart failure) ([facility]), Chronic kidney disease, unspecified, Depression, Diabetes mellitus type 2, controlled ([facility] [place]), Difficulty walking, DM (diabetes mellitus) ([facility]), MALHOTRA (dyspnea on exertion), Heart failure, systolic ([facility]), Hyperlipidemia, Hypertension, Hypothyroidism, Infectious viral hepatitis, Muscle weakness (generalized), Obesity, Obstructive chronic bronchitis without exacerbation ([facility]), Post-COVID syndrome resolved, and Stroke ([facility]). Past Surgical History: Patient has a past surgical history that includes Cholecystectomy; Appendectomy; and Tonsillectomy. Family History: Patient's family history includes Alzheimer's disease in her sister; Heart disease in her mother; Hypertension in her sister; Kidney disease in her brother and mother. Social History: Patient reports that she has quit smoking. She has never used smokeless tobacco. She reports that she does not drink alcohol and does not use drugs. Review of Systems Constitutional: Fatigue HENT: Negative for congestion, dental problem, hearing loss, rhinorrhea, sore throat, trouble swallowing and voice change. Eyes: Negative for visual disturbance. Respiratory: Negative for cough, sputum production, shortness of breath and wheezing. Cardiovascular: Negative for chest pain, palpitations and leg swelling. Gastrointestinal: Negative for abdominal pain, blood in stool, melena, constipation, diarrhea, nausea and vomiting. Genitourinary: Negative for difficulty urinating, dysuria, enuresis, frequency and hematuria. Musculoskeletal: Negative for arthralgias, joint swelling and myalgias. Skin: Negative for color change, rash and wound. Neurological: Negative for dizziness, seizures, syncope, speech difficulty, weakness, numbness and headaches. Hematological: Negative for adenopathy. Does not bruise/bleed easily. Psychiatric/Behavioral: Negative for dysphoric mood and sleep disturbance. The patient is not nervous/anxious. OBJECTIVE BP 144/50 Pulse 81 Temp 36.6 C (97.9 F) (Oral) Resp 18 Ht 157.5 cm (5' 2.01 ) Wt 110 kg (242 lb 8.1 oz) SpO2 100% BMI 44.34 kg/m Temp: [36.4 C (97.6 F)-36.6 C (97.9 F)] 36.6 C (97.9 F) Pulse: [65-81] 81 Resp: [15-26] 18 BP: (110-151)/(40-56) 144/50 SpO2: [94 %-100 %] 100 % O2 Device: Nasal cannula O2 Flow Rate (L/min): [2 L/min-3 L/min] 3 L/min No intake or output data in the 24 hours ending 09/01/232017 Physical Exam Vitals and nursing note reviewed. Constitutional: General: She is awake. She is not in acute distress. Appearance: Normal appearance. She is well-developed. She is obese. She is ill-appearing (Chronic). She is not toxic-appearing. HENT: Head: Normocephalic and atraumatic. Nose: Nose normal. Mouth/Throat: Mouth: Mucous membranes are moist. Pharynx: Oropharynx is clear. Eyes: Extraocular Movements: Extraocular movements intact. Conjunctiva/sclera: Conjunctivae normal. Pupils: Pupils are equal, round, and reactive to light. Pupils are equal. Neck: Trachea: Trachea and phonation normal. Cardiovascular: Rate and Rhythm: Normal rate and regular rhythm. Pulses: Normal pulses. Heart sounds: No murmur heard. No friction rub. No gallop. Comments: Left upper extremity AV fistula palpable thrill Pulmonary: Effort: Pulmonary effort is normal. No respiratory distress. Breath sounds: Normal breath sounds. No wheezing, rhonchi or rales. Abdominal: General: Abdomen is flat. There is no distension. Palpations: Abdomen is soft. Tenderness: There is no abdominal tenderness. There is no guarding. Musculoskeletal: General: No swelling, deformity or signs of injury. Normal range of motion. Cervical back: Normal range of motion and neck supple. Skin: General: Skin is warm and dry. Capillary Refill: Capillary refill takes less than 2 seconds. Coloration: Skin is pale. Findings: No rash. Neurological: General: No focal deficit present. Mental Status: She is alert and oriented to person, place, and time. Mental status is at baseline. Cranial Nerves: No cranial nerve deficit. Sensory: No sensory deficit. Motor: Motor function is intact. Psychiatric: Mood and Affect: Mood normal. Behavior: Behavior normal. Medications Scheduled: [START ON 09/02/2023] atorvastatin, 80 mg, oral, Daily [START ON 09/02/2023] B complex-vitamin C-folic acid, 1 tablet, oral, Daily [START ON 09/02/2023] bumetanide, 0.5 mg, oral, Daily carvediloL, 3.125 mg, oral, HS docusate sodium, 100 mg, oral, BID [START ON 09/02/2023] insulin glargine, 12 Units, subcutaneous, Daily insulin lispro, 2-10 Units, subcutaneous, TID with meals insulin lispro, 2-8 Units, subcutaneous, Nightly [START ON 09/02/2023] isosorbide mononitrate, 30 mg, oral, Daily [START ON 09/02/2023] levothyroxine, 188 mcg, oral, Daily [START ON 09/03/2023] midodrine, 5 mg, oral, Once per day on Tuesday [START ON 09/02/2023] pantoprazole, 40 mg, oral, QAM AC [START ON 09/02/2023] polyethylene glycol, 17 g, oral, Daily sennosides-docusate sodium, 1 tablet, oral, BID sevelamer, 800 mg, oral, BID with meals sodium chloride, 3 mL, intravenous, Q12H MARC Infusions: dextrose 5 % in water, 100 mL/hr sodium chloride 0.9 %, 20 mL/hr As Needed: acetaminophen albuterol dextrose dextrose 5 % in water dextrose 50 % in water (D50W) glucagon (human recombinant) guaiFENesin ondansetron ODT sodium chloride sodium chloride sodium chloride 0.9 % Allergies: Amoxicillin and Doxycycline Labs Recent Results (from the past 24 hour(s)) CBC auto differential Collection Time: 09/01/23 7:00 AM Result Value Ref Range White Blood Cells 3.6 (L) 4.0 - 11.0 X10E9/L RBC count 1.78 (L) 3.80 - 5.20 X10E12/L Hemoglobin 6.3 (LL) 11.7 - 15.5 g/dL Hematocrit 19.7 (L) 35 - 47 % MCV 111 (H) 80 - 100 fL MCH 35.3 (H) 27 - 34 pg MCHC 31.8 (L) 32 - 36 g/dL RDW 16.7 (H) 11.5 - 15.0 % Platelets 142 (L) 150 - 450 X10E9/L MPV 8.0 7 - 12 fL % neutrophils 49.7 % % lymphocytes 31.2 % % monocytes 11.3 % % eosinophils 6.6 % % Basophils 1.2 % Neutrophils Absolute (A) 1.8 1.5 - 6.6 X10E9/L Lymphocytes Absolute 1.1 1.0 - 3.5 X10E9/L Monocytes Absolute 0.4 0 - 0.9 X10E9/L Eosinophils Absolute 0.2 0.0 - 0.4 X10E9/L Basophils Absolute 0.0 0.0 - 0.2 X10E9/L Teardrop 1+ (A) NONE^NONE Ovalocytes 1+ (A) NONE^NONE Comprehensive metabolic panel Collection Time: 09/01/23 7:00 AM Result Value Ref Range Sodium 135 134 - 146 mmol/L Potassium, Bld 5.4 (H) 3.5 - 5.0 mmol/L Chloride 99 98 - 109 mmol/L CO2 25 22 - 32 mmol/L Anion gap 11 5 - 15 mmol/L BUN 66 (H) 5 - 27 mg/dL Creatinine 5.74 (H) 0.40 - 1.00 mg/dL Glucose 135 (H) 65 - 99 mg/dL Calcium 8.7 8.5 - 10.5 mg/dL Total Protein 6.4 6.0 - 8.0 g/dL Albumin 3.0 (L) 3.2 - 5.3 g/dL Alkaline Phosphatase 73 39 - 130 U/L AST 14 0 - 41 U/L ALT 20 0 - 31 U/L Total bilirubin 0.5 0.3 - 1.2 mg/dL eGFR (CKD-EPI)non-race dependent 7 (L) >59 ml/min/1.73sq.m Protime & INR Collection Time: 09/01/23 7:00 AM Result Value Ref Range Protime 11.4 9.8 - 13.2 sec Inr 1.0 0.8 - 1.1 APTT Collection Time: 09/01/23 7:00 AM Result Value Ref Range aPTT 30 26 - 37 sec Type and screen(includes indirect vamsi) Collection Time: 09/01/23 7:00 AM Result Value Ref Range ABO A RH Positive Antibody Screen Negative Crossmatch RBC:Number of Units: 1 Collection Time: 09/01/23 7:00 AM Result Value Ref Range Blood component type [id number] Unit number [id number] Unit ABO A Unit RH POS Crossmatch Compatible Status of unit ISSUED Expiration Date [id number] BB Type Barcode 6200 Hemoglobin and hematocrit, blood Collection Time: 09/01/23 12:14 PM Result Value Ref Range Hemoglobin 6.7 (LL) 11.7 - 15.5 g/dL Hematocrit 20.6 (L) 35 - 47 % CBC auto differential Collection Time: 09/01/23 4:19 PM Result Value Ref Range White Blood Cells 3.6 (L) 4.0 - 11.0 X10E9/L RBC count 2.23 (L) 3.80 - 5.20 X10E12/L Hemoglobin 7.6 (L) 11.7 - 15.5 g/dL Hematocrit 23.6 (L) 35 - 47 % MCV 106 (H) 80 - 100 fL MCH 34.2 (H) 27 - 34 pg MCHC 32.3 32 - 36 g/dL RDW 19.0 (H) 11.5 - 15.0 % Platelets 136 (L) 150 - 450 X10E9/L MPV 8.1 7 - 12 fL % neutrophils 58.2 % % lymphocytes 23.6 % % monocytes 10.5 % % eosinophils 6.6 % % Basophils 1.1 % Neutrophils Absolute (A) 2.1 1.5 - 6.6 X10E9/L Lymphocytes Absolute 0.9 (L) 1.0 - 3.5 X10E9/L Monocytes Absolute 0.4 0 - 0.9 X10E9/L Eosinophils Absolute 0.2 0.0 - 0.4 X10E9/L Basophils Absolute 0.0 0.0 - 0.2 X10E9/L Bedside Glucose *Place/Obtain serum glucose if >500(>600 [facility]) per glucometer. Collection Time: 09/01/23 4:30 PM Result Value Ref Range Bedside glucose 118 (H) 65 - 99 mg/dL Radiology No results found. HOSPITAL PROBLEM LIST Principal Problem: Anemia Active Problems: Essential hypertension Anemia of chronic disease Diabetes type 2, controlled ([facility] [place] [place]) ESRD (end stage renal disease) on dialysis ([facility] [place] [place]) ASSESSMENT & PLAN Anemia/anemia of chronic disease HGB 6.3 Received 1U PRBC at [facility] Repeat HGB 7.6 H&H Q8H Transfuse 1U PRBC for HGB <7 End-stage renal disease on HD Nephrology consult for HD mgmt T,,S schedule HD in am Essential hypertension Resume Coreg, Imdur Hold Losartan d/t hyperkalemia Type 2 diabetes mellitus Sliding scale per protocol Lantus 12U in am Admission orders placed and home medications reconciled. DVT/VTE prophylaxis: SCD's and no pharmacologic prophylaxis due to symptomatic anemia GI prophylaxis: add pantoprazole. PT/OT to evaluate and treat. DC planning: Pending clinical course. IRINA Villalobos 09/01/2023 8:18 PM [facility] Internal Medicine 7AM-7PM (all facilities): EpicChat or page through Vocera. 7PM-7AM ([facility], [facility]): EpicChat or page, [phone]. 7PM-7AM ([place], [place], [place], [place] and [facility] Rehab): EpicChat or page through Vocera. IRINA Villalobos 09/01/232001 Physician Attestation I, Dona Kincaid MD, personally performed a face to face diagnostic evaluation on this patient. I have reviewed the note authored by the advance practice provider including history, review of systems,physical examination,medical decision making and agree with the assessment and plan as written. I have seen and evaluated the patient, I have repeated the flores portions of the physical exam and concur with the KYLE findings. I have reviewed all laboratory findings and imaging reports/films. I agree with the plan as noted. [facility] 09-01-2023 History and physical note Images from the original note were not included. [facility] [address] [facility] [id number] Hospital Medicine History & Physical Patient: Janay Schilling Date of : 1950 Room: PCP: LUCIE BARRY MD Admission date: 09/01/2023 2:44 PM Encounter date: 09/01/23 Hospital Day: 1 SUBJECTIVE Janay Schilling is a 73 y.o. female who presents with ESRD on dialysis Tuesday, and Tuesday via left upper extremity AV fistula, hypertension, hyperlipidemia, heart failure, diabetes presenting to the emergency department for evaluation for abnormal lab as an outpatient. Hemoglobin less than 7. Dialysis refused her unless she gets transfused. Has a history of anemia of chronic disease of which she gets aranesp injections as an outpatient but got lost to follow up and just restarted them within the last month. She reports some fatigue and weakness otherwise denies chest pain, shortness of breath. Last dialysis was 2 days ago. Misssed Dialysis session today. Denies black stool. MANAGER SYSTEMS 5.74. K+ 5.4. HGB 6.3. Allergies: Amoxicillin and Doxycycline Prior to Admission medications Medication Sig Start Date End Date Taking? Authorizing Provider acetaminophen (TYLENOL) 500 mg tablet Take 1 tablet (500 mg total) by mouth every 6 (six) hours as needed for pain. Not In System Ref Prov albuterol (ACCUNEB) 0.63 mg/3 mL nebulizer solution Inhale 3 mL (0.63 mg total) by nebulization every 6 (six) hours as needed for wheezing. Patient not taking: Reported on 11/01/2022 Not In System Ref Prov amLODIPine (NORVASC) 10 mg tablet Take 1 tablet (10 mg total) by mouth in the morning. Not In System Ref Prov atorvastatin (LIPITOR) 40 mg tablet Take 2 tablets (80 mg total) by mouth in the morning. Not In System Ref Prov atorvastatin (LIPITOR) 80 mg tablet Take 0.5 tablets (40 mg total) by mouth in the morning. Patient not taking: Reported on 11/01/2022 10/25/22 Not In System Ref Prov bisacodyL (DULCOLAX) 10 mg suppository Insert 1 suppository (10 mg total) into the rectum as needed for constipation. Patient not taking: Reported on 01/04/2023 Not In System Ref Prov bumetanide (BUMEX) 0.5 mg tablet Take 2 tablets (1 mg total) by mouth 2 (two) times a day. Patient taking differently: Take 1 tablet (0.5 mg total) by mouth daily. 07/18/19 Negro Elder MD carvediloL (COREG) 3.125 mg tablet Take 1 tablet (3.125 mg total) by mouth once daily at bedtime. Hold for HR less than 60 10/15/22 Not In System Ref Prov carvediloL (COREG) 6.25 mg tablet Take 6.25 mg by mouth 2 (two) times a day with meals. Patient not taking: Reported on 11/01/2022 Not In System Ref Prov cyclobenzaprine (FLEXERIL) 5 mg tablet Take 2 tablets (10 mg total) by mouth 3 (three) times a day as needed for muscle spasms. Patient not taking: Reported on 11/01/2022 Not In System Ref Prov dextrose 40 % gel Take 37.5 mL (15 g total) by mouth once. Patient not taking: Reported on 11/01/2022 Not In System Ref Prov docusate sodium (COLACE) 100 mg capsule Take 1 capsule (100 mg total) by mouth in the morning and 1 capsule (100 mg total) before bedtime. Not In System Ref Prov ergocalciferol (DRISDOL) 1,250 mcg (50,000 unit) capsule Take 1 capsule (50,000 Units total) by mouth in the morning. Give 1 capsule by mouth one time daily starting on the and ending on the every month.. Not In System Ref Prov insulin glargine-yfgn 100 unit/mL solution Inject 12 Units under the skin in the morning. 07/26/22 Not In System Ref Prov ipratropium/albuterol sulfate (IPRATROPIUM-ALBUTEROL INHL) Inhale as needed. Patient not taking: Reported on 11/01/2022 Not In System Ref Prov isosorbide mononitrate (IMDUR) 30 mg 24 hr tablet Take 1 tablet (30 mg total) by mouth daily. 07/19/19 Negro Elder MD levothyroxine (SYNTHROID, LEVOTHROID) 125 MCG tablet Take 150 mcg by mouth in the morning. Not In System Ref Prov loperamide (IMODIUM A-D) 2 mg tablet Take 1 tablet (2 mg total) by mouth 4 (four) times a day as needed for diarrhea. Patient not taking: Reported on 11/01/2022 Not In System Ref Prov loratadine (CLARITIN) 10 mg tablet Take 1 tablet (10 mg total) by mouth as needed. Patient not taking: Reported on 01/04/2023 Not In System Ref Prov losartan (COZAAR) 50 mg tablet Take 1 tablet (50 mg total) by mouth. Mon, Wed, Fri, Sun 10/07/22 Not In System Ref Prov midodrine (PROAMATINE) 5 mg tablet Take 1 tablet (5 mg total) by mouth. One tablet, one time daily, on days , , and Tue. Hold if SMP is greater than 110 Not In System Ref Prov ondansetron (ZOFRAN) 4 mg tablet Take 1 tablet (4 mg total) by mouth every 8 (eight) hours as needed for nausea or vomiting. Patient not taking: Reported on 01/04/2023 Not In System Ref Prov polyethylene glycol (MIRALAX) 17 gram/dose powder Take 17 g by mouth in the morning. Not In System Ref Prov sertraline (ZOLOFT) 100 mg tablet Take 2 tablets (200 mg total) by mouth in the morning. Not In System Ref Prov sevelamer (RENVELA) 800 mg tablet Take 1 tablet (800 mg total) by mouth in the morning and 1 tablet (800 mg total) in the evening. Take with meals. Not In System Ref Prov SITagliptin (JANUVIA) 50 mg tablet Take 50 mg by mouth daily. Patient not taking: Reported on 11/01/2022 Not In System Ref Prov sodium chloride (OCEAN) 0.65 % nasal spray Administer 2 sprays into each nostril 2 (two) times a day. Patient not taking: Reported on 11/01/2022 Not In System Ref Prov Past Medical History: Patient has a past medical history of Anemia, unspecified, Cellulitis, Cellulitis, unspecified, CHF (congestive heart failure) ([facility]), Chronic kidney disease, unspecified, Depression, Diabetes mellitus type 2, controlled ([facility]), Difficulty walking, DM (diabetes mellitus) ([facility]), MALHOTRA (dyspnea on exertion), Heart failure, systolic ([facility]), Hyperlipidemia, Hypertension, Hypothyroidism, Infectious viral hepatitis, Muscle weakness (generalized), Obesity, Obstructive chronic bronchitis without exacerbation ([facility]), Post-COVID syndrome resolved, and Stroke ([facility]). Past Surgical History: Patient has a past surgical history that includes Cholecystectomy; Appendectomy; and Tonsillectomy. Family History: Patient's family history includes Alzheimer's disease in her sister; Heart disease in her mother; Hypertension in her sister; Kidney disease in her brother and mother. Social History: Patient reports that she has quit smoking. She has never used smokeless tobacco. She reports that she does not drink alcohol and does not use drugs. Review of Systems Constitutional: Fatigue HENT: Negative for congestion, dental problem, hearing loss, rhinorrhea, sore throat, trouble swallowing and voice change. Eyes: Negative for visual disturbance. Respiratory: Negative for cough, sputum production, shortness of breath and wheezing. Cardiovascular: Negative for chest pain, palpitations and leg swelling. Gastrointestinal: Negative for abdominal pain, blood in stool, melena, constipation, diarrhea, nausea and vomiting. Genitourinary: Negative for difficulty urinating, dysuria, enuresis, frequency and hematuria. Musculoskeletal: Negative for arthralgias, joint swelling and myalgias. Skin: Negative for color change, rash and wound. Neurological: Negative for dizziness, seizures, syncope, speech difficulty, weakness, numbness and headaches. Hematological: Negative for adenopathy. Does not bruise/bleed easily. Psychiatric/Behavioral: Negative for dysphoric mood and sleep disturbance. The patient is not nervous/anxious. OBJECTIVE BP 144/50 Pulse 81 Temp 36.6 C (97.9 F) (Oral) Resp 18 Ht 157.5 cm (5' 2.01 ) Wt 110 kg (242 lb 8.1 oz) SpO2 100% BMI 44.34 kg/m Temp: [36.4 C (97.6 F)-36.6 C (97.9 F)] 36.6 C (97.9 F) Pulse: [65-81] 81 Resp: [15-26] 18 BP: (110-151)/(40-56) 144/50 SpO2: [94 %-100 %] 100 % O2 Device: Nasal cannula O2 Flow Rate (L/min): [2 L/min-3 L/min] 3 L/min No intake or output data in the 24 hours ending 09/01/232017 Physical Exam Vitals and nursing note reviewed. Constitutional: General: She is awake. She is not in acute distress. Appearance: Normal appearance. She is well-developed. She is obese. She is ill-appearing (Chronic). She is not toxic-appearing. HENT: Head: Normocephalic and atraumatic. Nose: Nose normal. Mouth/Throat: Mouth: Mucous membranes are moist. Pharynx: Oropharynx is clear. Eyes: Extraocular Movements: Extraocular movements intact. Conjunctiva/sclera: Conjunctivae normal. Pupils: Pupils are equal, round, and reactive to light. Pupils are equal. Neck: Trachea: Trachea and phonation normal. Cardiovascular: Rate and Rhythm: Normal rate and regular rhythm. Pulses: Normal pulses. Heart sounds: No murmur heard. No friction rub. No gallop. Comments: Left upper extremity AV fistula palpable thrill Pulmonary: Effort: Pulmonary effort is normal. No respiratory distress. Breath sounds: Normal breath sounds. No wheezing, rhonchi or rales. Abdominal: General: Abdomen is flat. There is no distension. Palpations: Abdomen is soft. Tenderness: There is no abdominal tenderness. There is no guarding. Musculoskeletal: General: No swelling, deformity or signs of injury. Normal range of motion. Cervical back: Normal range of motion and neck supple. Skin: General: Skin is warm and dry. Capillary Refill: Capillary refill takes less than 2 seconds. Coloration: Skin is pale. Findings: No rash. Neurological: General: No focal deficit present. Mental Status: She is alert and oriented to person, place, and time. Mental status is at baseline. Cranial Nerves: No cranial nerve deficit. Sensory: No sensory deficit. Motor: Motor function is intact. Psychiatric: Mood and Affect: Mood normal. Behavior: Behavior normal. Medications Scheduled: [START ON 09/02/2023] atorvastatin, 80 mg, oral, Daily [START ON 09/02/2023] B complex-vitamin C-folic acid, 1 tablet, oral, Daily [START ON 09/02/2023] bumetanide, 0.5 mg, oral, Daily carvediloL, 3.125 mg, oral, HS docusate sodium, 100 mg, oral, BID [START ON 09/02/2023] insulin glargine, 12 Units, subcutaneous, Daily insulin lispro, 2-10 Units, subcutaneous, TID with meals insulin lispro, 2-8 Units, subcutaneous, Nightly [START ON 09/02/2023] isosorbide mononitrate, 30 mg, oral, Daily [START ON 09/02/2023] levothyroxine, 188 mcg, oral, Daily [START ON 09/03/2023] midodrine, 5 mg, oral, Once per day on Tuesday [START ON 09/02/2023] pantoprazole, 40 mg, oral, QAM AC [START ON 09/02/2023] polyethylene glycol, 17 g, oral, Daily sennosides-docusate sodium, 1 tablet, oral, BID sevelamer, 800 mg, oral, BID with meals sodium chloride, 3 mL, intravenous, Q12H MARC Infusions: dextrose 5 % in water, 100 mL/hr sodium chloride 0.9 %, 20 mL/hr As Needed: acetaminophen albuterol dextrose dextrose 5 % in water dextrose 50 % in water (D50W) glucagon (human recombinant) guaiFENesin ondansetron ODT sodium chloride sodium chloride sodium chloride 0.9 % Allergies: Amoxicillin and Doxycycline Labs Recent Results (from the past 24 hour(s)) CBC auto differential Collection Time: 09/01/23 7:00 AM Result Value Ref Range White Blood Cells 3.6 (L) 4.0 - 11.0 X10E9/L RBC count 1.78 (L) 3.80 - 5.20 X10E12/L Hemoglobin 6.3 (LL) 11.7 - 15.5 g/dL Hematocrit 19.7 (L) 35 - 47 % MCV 111 (H) 80 - 100 fL MCH 35.3 (H) 27 - 34 pg MCHC 31.8 (L) 32 - 36 g/dL RDW 16.7 (H) 11.5 - 15.0 % Platelets 142 (L) 150 - 450 X10E9/L MPV 8.0 7 - 12 fL % neutrophils 49.7 % % lymphocytes 31.2 % % monocytes 11.3 % % eosinophils 6.6 % % Basophils 1.2 % Neutrophils Absolute (A) 1.8 1.5 - 6.6 X10E9/L Lymphocytes Absolute 1.1 1.0 - 3.5 X10E9/L Monocytes Absolute 0.4 0 - 0.9 X10E9/L Eosinophils Absolute 0.2 0.0 - 0.4 X10E9/L Basophils Absolute 0.0 0.0 - 0.2 X10E9/L Teardrop 1+ (A) NONE^NONE Ovalocytes 1+ (A) NONE^NONE Comprehensive metabolic panel Collection Time: 09/01/23 7:00 AM Result Value Ref Range Sodium 135 134 - 146 mmol/L Potassium, Bld 5.4 (H) 3.5 - 5.0 mmol/L Chloride 99 98 - 109 mmol/L CO2 25 22 - 32 mmol/L Anion gap 11 5 - 15 mmol/L BUN 66 (H) 5 - 27 mg/dL Creatinine 5.74 (H) 0.40 - 1.00 mg/dL Glucose 135 (H) 65 - 99 mg/dL Calcium 8.7 8.5 - 10.5 mg/dL Total Protein 6.4 6.0 - 8.0 g/dL Albumin 3.0 (L) 3.2 - 5.3 g/dL Alkaline Phosphatase 73 39 - 130 U/L AST 14 0 - 41 U/L ALT 20 0 - 31 U/L Total bilirubin 0.5 0.3 - 1.2 mg/dL eGFR (CKD-EPI)non-race dependent 7 (L) >59 ml/min/1.73sq.m Protime & INR Collection Time: 09/01/23 7:00 AM Result Value Ref Range Protime 11.4 9.8 - 13.2 sec Inr 1.0 0.8 - 1.1 APTT Collection Time: 09/01/23 7:00 AM Result Value Ref Range aPTT 30 26 - 37 sec Type and screen(includes indirect vamsi) Collection Time: 09/01/23 7:00 AM Result Value Ref Range ABO A RH Positive Antibody Screen Negative Crossmatch RBC:Number of Units: 1 Collection Time: 09/01/23 7:00 AM Result Value Ref Range Blood component type [id number] Unit number [id number] Unit ABO A Unit RH POS Crossmatch Compatible Status of unit ISSUED Expiration Date [id number] BB Type Barcode 6200 Hemoglobin and hematocrit, blood Collection Time: 09/01/23 12:14 PM Result Value Ref Range Hemoglobin 6.7 (LL) 11.7 - 15.5 g/dL Hematocrit 20.6 (L) 35 - 47 % CBC auto differential Collection Time: 09/01/23 4:19 PM Result Value Ref Range White Blood Cells 3.6 (L) 4.0 - 11.0 X10E9/L RBC count 2.23 (L) 3.80 - 5.20 X10E12/L Hemoglobin 7.6 (L) 11.7 - 15.5 g/dL Hematocrit 23.6 (L) 35 - 47 % MCV 106 (H) 80 - 100 fL MCH 34.2 (H) 27 - 34 pg MCHC 32.3 32 - 36 g/dL RDW 19.0 (H) 11.5 - 15.0 % Platelets 136 (L) 150 - 450 X10E9/L MPV 8.1 7 - 12 fL % neutrophils 58.2 % % lymphocytes 23.6 % % monocytes 10.5 % % eosinophils 6.6 % % Basophils 1.1 % Neutrophils Absolute (A) 2.1 1.5 - 6.6 X10E9/L Lymphocytes Absolute 0.9 (L) 1.0 - 3.5 X10E9/L Monocytes Absolute 0.4 0 - 0.9 X10E9/L Eosinophils Absolute 0.2 0.0 - 0.4 X10E9/L Basophils Absolute 0.0 0.0 - 0.2 X10E9/L Bedside Glucose *Place/Obtain serum glucose if >500(>600 [facility]) per glucometer. Collection Time: 09/01/23 4:30 PM Result Value Ref Range Bedside glucose 118 (H) 65 - 99 mg/dL Radiology No results found. HOSPITAL PROBLEM LIST Principal Problem: Anemia Active Problems: Essential hypertension Anemia of chronic disease Diabetes type 2, controlled ([facility] [place] [place]) ESRD (end stage renal disease) on dialysis ([facility] [place] [place]) ASSESSMENT & PLAN Anemia/anemia of chronic disease HGB 6.3 Received 1U PRBC at [facility] Repeat HGB 7.6 H&H Q8H Transfuse 1U PRBC for HGB <7 End-stage renal disease on HD Nephrology consult for HD mgmt T,,S schedule HD in am Essential hypertension Resume Coreg, Imdur Hold Losartan d/t hyperkalemia Type 2 diabetes mellitus Sliding scale per protocol Lantus 12U in am Admission orders placed and home medications reconciled. DVT/VTE prophylaxis: SCD's and no pharmacologic prophylaxis due to symptomatic anemia GI prophylaxis: add pantoprazole. PT/OT to evaluate and treat. DC planning: Pending clinical course. Libby Griffiths, GARRY-EUGENIA 09/01/2023 8:18 PM [facility] 7AM-7PM (all facilities): EpicChat or page through Vocera. 7PM-7AM ([facility]): EpicChat or page, [phone]. 7PM-7AM ([facility] [place] [place] [facility] Re[facility]): EpicChat or page through Vocera. Libby Griffiths, SIMULATION SOFTWARE ENGINEER-CARRIAGE RIDER 09/01/232001 Physician Attestation I, Dona Kincaid MD, personally performed a face to face diagnostic evaluation on this patient. I have reviewed the note authored by the advance practice provider including history, review of systems,physical examination,medical decision making and agree with the assessment and plan as written. I have seen and evaluated the patient, I have repeated the flores portions of the physical exam and concur with the KYLE findings. I have reviewed all laboratory findings and imaging reports/films. I agree with the plan as noted. documented in this encounter [facility] 07-21-2023 History of Presen t illness Narrative Received recent cbc from [facility] and patient is getting mircera injections for [place]. Placed in Dr. Fox folder to review. documented in this encounter [facility] 07-14-2023 History of Presen t illness Narrative Patient saw Dr. Fox today for follow up. Membership Sales Manager will call [facility] [place] to obtain recent CBC and see if they are giving her aranesp injections there. If she is getting the shots she does not need to follow with Dr. Fox. Office is closed today so will call tomorrow. documented in this encounter [facility] 07-14-2023 History of Presen t illness Narrative Images from the original note were not included. [facility] 07/14/23 Janay Schilling is a 73 y.o. year old female seen today in the oncology clinic. Chief Complaint Patient presents with Follow-up History of Present Illness: Mrs. Schilling is a 73 y.o. female care home resident at [facility]. She has a history of chronic renal insufficiency, her hemoglobin over the past few months ranges between 6-7. The patient's creatinine is up to 3, currently she is not on dialysis. She is referred to Hematology for anemia. Patient responded well to Aranesp treatment, her hemoglobin improved to 12 after 4 months of treatment in 12/2022. Interval history: The patient is wheelchair-bound, complains about chronic fatigue. Her last treatment for with Aranesp was in April 2023. Due to COVID infection she lost to follow-up. Currently she is on dialysis. She thinks her fatigue is probably a little bit better after Aranesp shots. No blood in the stool or urine. Tolerate Aranesp very well. Past Medical History: Diagnosis Date Anemia, unspecified Cellulitis Cellulitis, unspecified CHF (congestive heart failure) ([facility]) Chronic kidney disease, unspecified Depression Diabetes mellitus type 2, controlled ([facility]) Difficulty walking DM (diabetes mellitus) ([facility]) MALHOTRA (dyspnea on exertion) Heart failure, systolic ([facility]) Hyperlipidemia Hypertension Hypothyroidism Infectious viral hepatitis Muscle weakness (generalized) Obesity Obstructive chronic bronchitis without exacerbation Post-COVID syndrome resolved Stroke ([facility]) Past Surgical History: Procedure Laterality Date APPENDECTOMY CHOLECYSTECTOMY TONSILLECTOMY Family History Problem Relation Age of Onset Breast cancer Neg Hx Social History Socioeconomic History Marital status: Single Spouse name: Not on file Number of children: Not on file Years of education: Not on file Highest education level: Not on file Occupational History Not on file Tobacco Use Smoking status: Former Smokeless tobacco: Never Vaping Use Vaping Use: Never used Substance and Sexual Activity Alcohol use: No Drug use: No Sexual activity: Defer Other Topics Concern Caffeine Use Yes Social History Narrative Not on file Social Determinants of Health Financial Resource Strain: Not on file Food Insecurity: No Food Insecurity (04/04/2023) Hunger Screening Food Insecurity - Worry: Never True Food Insecurity - Inability: Never True Transportation Needs: Not on file Physical Activity: Not on file Stress: Not on file Social Connections: Not on file Interpersonal Safety: Not on file Housing Instability: Not on file Allergies Allergen Reactions Amoxicillin Doxycycline Medication List Accurate as of July 14, 2023 5:00 PM. If you have any questions, ask your nurse or doctor. Medications Modified This Visit bumetanide 0.5 mg tablet Refills: 0 Dose: 1 mg Signed by: Dr. Elder 1 mg, oral, 2 times daily Commonly known as: BUMEX What changed: how much to take when to take this Medications Continued This Visit acetaminophen 500 mg tablet Refills: 0 Dose: 500 mg Commonly known as: TYLENOL EXTRA STRENGTH albuterol 0.63 mg/3 mL nebulizer solution Refills: 0 Dose: 1 ampule Commonly known as: ACCUNEB amLODIPine 10 mg tablet Refills: 0 Dose: 10 mg Commonly known as: NORVASC * atorvastatin 40 mg tablet Refills: 0 Dose: 80 mg Commonly known as: LIPITOR * atorvastatin 80 mg tablet Refills: 0 Dose: 40 mg Commonly known as: LIPITOR bisacodyL 10 mg suppository Refills: 0 Dose: 10 mg Commonly known as: DULCOLAX * carvediloL 6.25 mg tablet Refills: 0 Dose: 6.25 mg Commonly known as: COREG * carvediloL 3.125 mg tablet Refills: 0 Dose: 3.125 mg Commonly known as: COREG cyclobenzaprine 5 mg tablet Refills: 0 Dose: 10 mg Commonly known as: FLEXERIL dextrose 40 % gel Refills: 0 Dose: 15 g Generic drug: dextrose docusate sodium 100 mg capsule Refills: 0 Dose: 100 mg Commonly known as: COLACE ergocalciferol 1,250 mcg (50,000 unit) capsule Refills: 0 Dose: 50,000 Units Commonly known as: DRISDOL insulin glargine-yfgn 100 unit/mL solution Refills: 0 Dose: 12 Units IPRATROPIUM-ALBUTEROL INHL Refills: 0 isosorbide mononitrate 30 mg 24 hr tablet Refills: 0 Dose: 30 mg Signed by: Dr. Elder 30 mg, oral, Daily Commonly known as: IMDUR levothyroxine 125 MCG tablet Refills: 0 Dose: 150 mcg Commonly known as: SYNTHROID, LEVOTHROID loperamide 2 mg tablet Refills: 0 Dose: 2 mg Commonly known as: IMODIUM A-D loratadine 10 mg tablet Refills: 0 Dose: 10 mg Commonly known as: CLARITIN losartan 50 mg tablet Refills: 0 Dose: 50 mg Commonly known as: COZAAR midodrine 5 mg tablet Refills: 0 Dose: 5 mg Commonly known as: PROAMATINE MIRALAX 17 gram/dose powder Refills: 0 Dose: 17 g Generic drug: polyethylene glycol ondansetron 4 mg tablet Refills: 0 Dose: 4 mg Commonly known as: ZOFRAN sertraline 100 mg tablet Refills: 0 Dose: 200 mg Commonly known as: ZOLOFT sevelamer 800 mg tablet Refills: 0 Dose: 800 mg Commonly known as: RENVELA SITagliptin phosphate 50 mg tablet Refills: 0 Dose: 50 mg Commonly known as: JANUVIA sodium chloride 0.65 % nasal spray Refills: 0 Dose: 2 spray Commonly known as: OCEAN * This list has 4 medication(s) that are the same as other medications prescribed for you. Read the directions carefully, and ask your doctor or other care provider to review them with you. Review of Symptoms: Review of Systems ECO- Symptomatic; in bed >50% of the day Physical Exam: General: Pale, chronic ill appearing, in no acute distress. Vitals: BP 147/48 Pulse 79 Temp 36.4 C (97.5 F) Resp 20 Ht 157.5 cm (5' 2.01 ) Wt 99.8 kg (220 lb) SpO2 95% BMI 40.23 kg/m Body mass index is 40.23 kg/m . Eyes: No icterus, no conjuctival erythema Respiratory: Respirations were non-labored. Lungs were clear to auscultation. There was no dullness to percussion. Cardiac: Regular rate and rhythm, S1 and S2 sounds were normal. There were no rubs or gallops. Abdomen: Soft, non-tender, Nondistended. Bowel sounds audible in all four quadrants. There were no palpable masses. The liver and spleen were not enlarged. Extremities: There was no clubbing, Cyanosis, edema. Skin: There was no obvious rashes, bruising or ecchymosis. Back exam: No palpable tenderness was appreciated. Neurologic: There was no unilateral weakness. Mood and affect: Normal. Recent Imaging: No results found. Recent Labs: No results found for this or any previous visit (from the past 336 hour(s)). Diagnosis Problem list: Problem List Items Addressed This Visit None Impression: Anemia of chronic disease Chronic renal insufficiency History of iron deficiency Plan: I reviewed the patient's blood work over the past 2 years. She developed progressive normocytic anemia. Recently her creatinine is up to 3. She is currently on dialysis at [facility]. I suspect she has anemia of chronic kidney disease due to renal insufficiency. Patient's EPO level is low, Aranesp is started, initially she responded well until she lost to follow-up in April 2023. The patient is currently on dialysis, [place] can be administered during dialysis. Plan to obtain records from [facility] and coordinate with her dialysis Follow-up to be determined. Thank you. Santos Fox MD Please note that portions of this note were generated using voice recognition [employer] dictation software. Although every effort was made to ensure the accuracy of this automated stud master/mistress, some errors in stud master/mistress may have occurred. CC: Patient Care Team: Lucie Barry MD as PCP - General (Family Medicine) Santos Fox MD as Consulting Physician (Hematology) PCP:LUCIE BARRY Referring MD: Lucie Barry MD documented in this encounter [facility] Evaluation note No assessment inform ation available [facility] Work Phone: Evaluation note Diagnosis Episode of syncope- Primary Hypothyroidism, unspecified type ESRD (end stage renal disease) on dialysis ([facility]) End stage renal disease Hypothyroidism Unspecified hypothyroidism Class 3 severe obesity due to excess calories in adult ([facility]) Diabetes type 2, controlled ([facility]) Type II or unspecified type diabetes mellitus without mention of complication, not stated as uncontrolled Essential hypertension Unspecified essential hypertension documented in this encounter [facility]* Diagnosis Anemia- Primary Unspecified anemia ESRD (end stage renal disease) on dialysis ([facility]) End stage renal disease Other iron deficiency anemia Anemia of chronic disease Anemia of other chronic disease Diabetes type 2, controlled ([facility]) Type II or unspecified type diabetes mellitus without mention of complication, not stated as uncontrolled Essential hypertension Unspecified essential hypertension ESRD (end stage renal disease) on dialysis ([facility]) End stage renal disease documented in this [facility] Diagnosis Anemia of chronic disease- Primary Anemia of other chronic disease Stage 3b chronic kidney disease ([facility]) [facility] Diagnosis GI bleed- Primary Unspecified, hemorrhage of gastrointestinal tract documented in this encounter [facility] Additional Instructions Lokelma 10 mg by mouth today and 10 mg by mouth tomorrow. Patient is to have dialysis on 01/[facility]2024[facility] Work Phone: Hospital Discharge instructions Additional Instructions Follow-up with your primary care doctor Return to ED if develop worsening symptoms or [facility] Work Phone: Hospital Discharge instructions* Attachments The following attachments cannot be sent through Care Everywhere. * Syncope (Fainting) Discharge Instructions (Senegalese) [facility] SystemInstructionsNot on file documented in [facility] SystemInstructionsNot on file documented in this encounterProG[facility] SystemInstructionsNot on file documented in [facility]Tr[facility] SystemReason for visit Narrative* Auth/Cert (Routine) Specialty Diagnoses / Procedures Referred By Contac t Referred To Contact Diagnoses Episode of syncope Syncopal episode Joseph Pleitez MD [address], [address] [address] Phone: tel: fax: Referral ID Status Reason Start Date Expiration Date Visits Re quested Visits Authorized [id number] [facility] Auth/Cert Specialty Diagnoses / Procedures Referred By Contac Referred To Contact Diagnoses GI bleed Coreen Houser MD [address] [place] [address] Phone: tel: fax: Referral ID Status Reason Start Date Expiration Date Visits Re quested Visits Authorized [id number] 1 1 [facility] Summary Purpose Family History No Family History Records FoundNo Family History Records FoundNo Family History Records FoundNo Family History Records FoundNo Family History Records Found Advance Directives No Advanced Directives Records Found Advance Directive Response Recorded Date/ Time Advance Directives No June 08, 2018 12:32pm Documents on File Type Date Recorded Patient Account Classification Clerk Expl anation DNR Physician Order 02/16/2024 5:18 PM Durable Power of Professor Of Finance 02/16/2024 4:33 PM DNR Physician Order 12/13/2023 7:07 AM DNR Physician Order 11/09/2022 6:36 AM Durable Power of Professor Of Finance 08/01/2019 9:26 AM DNR Physician Order 07/30/2019 3:37 PM Advance Directive 07/13/2019 1:23 AM DNRCC Date Activated Date Inactivated Comments 04/21/2024 2:38 AM Date Activated Date Inactivated Comments 09/01/2023 3:18 PM 09/03/2023 8:36 PM Date Activated Date Inactivated Comments 07/13/2019 4:33 AM 07/18/2019 6:19 PM Documents on File Type Date Recorded Patient Account Classification Clerk Expl anation DNR Physician Order 02/16/2024 5:18 PM Durable Power of Professor Of Finance 02/16/2024 4:33 PM DNR Physician Order 12/13/2023 7:07 AM DNR Physician Order 11/09/2022 6:36 AM Durable Power of Professor Of Finance 08/01/2019 9:26 AM DNR Physician Order 07/30/2019 3:37 PM Advance Directive 07/13/2019 1:23 AM DNRCC Date Activated Date Inactivated Comments 04/21/2024 2:38 AM 04/23/2024 8:36 PM Date Activated Date Inactivated Comments 09/01/2023 3:18 PM 09/03/2023 8:36 PM Date Activated Date Inactivated Comments 07/13/2019 4:33 AM 07/18/2019 6:19 PM Documents on File Type Date Recorded Patient Account Classification Clerk Expl anation DNR Physician Order 11/09/2022 6:36 AM Durable Power of Professor Of Finance 08/01/2019 9:26 AM DNR Physician Order 07/30/2019 3:37 PM Advance Directive 07/13/2019 1:23 AM DNRCC Date Activated Date Inactivated Comments 09/01/2023 3:18 PM Date Activated Date Inactivated Comments 07/13/2019 4:33 AM 07/18/2019 6:19 PM Documents on File Type Date Recorded Patient Account Classification Clerk Expl anation DNR Physician Order 11/09/2022 6:36 AM Durable Power of Professor Of Finance 08/01/2019 9:26 AM DNR Physician Order 07/30/2019 3:37 PM Advance Directive 07/13/2019 1:23 AM DNRCC Latest Code Status on File Code Status Date Activated Date Inactivated Comments DNR Comfort Care (DNRCC) [place] 07/13/2019 4:33 AM 020 6:19 PM Date Activated Date Inactivated Comments 08/10/2024 8:06 AM Date Activated Date Inactivated Comments 08/09/2024 9:59 AM 08/10/2024 8:06 AM Date Activated Date Inactivated Comments 08/08/2024 12:20 PM 08/09/2024 9:59 AM Date Activated Date Inactivated Comments 08/07/2024 11:35 PM 08/08/2024 12:20 PM Date Activated Date Inactivated Comments 08/07/2024 3:38 AM 08/07/2024 10:56 PM Chief Complaint and Reason for Visit Chief Complaint ^ chest pressure Chief Complaint ^ chest pressure Chest pain Chief Complaint ^ chest pressure Chest pain Syncopy Reason for Referral Specialty Diagnoses / Procedures Referred By Riya t Referred To Contact Procedures Discharge Follow-Up Libby Griffiths APRN-CNP [address], [address] [address] Referral ID Status Reason Start Date Expiration Date V isits Requested Visits Authorized [id number] Pending Review 09/03/2023 09/02/2024 1 1 Specialty Diagnoses / Procedures Referred By Riya bassett Referred To Contact Diagnoses ESRD (end stage renal disease) on dialysis ([facility]) Other iron deficiency anemia Procedures Follow-up with primary care provider Libby Griffiths APRN-CNP [address], [address] [address] Referral ID Status Reason Start Date Expiration Date V isits Requested Visits Authorized [id number] Pending Review 09/03/2023 09/02/2024 1 1 Additional Source Comments INFORMATION SOURCE (unrecogn ized section and content) DATE CREATED AUTHOR 03/05/2022 [facility] DATE CREATED AUTHOR AUTHOR'S ORGANIZ ATION 03/09/2024 [facility] DATE CREATED AUTHOR AUTHOR'S ORGANIZ ATION 04/24/2024 [facility] DATE CREATED AUTHOR AUTHOR'S ORGANIZ ATION 08/23/2024 [facility] DATE CREATED AUTHOR AUTHOR'S ORGANIZ ATION 08/26/2024 [facility] Care Teams (unrecognized sec tion and content) Team Status: Active Member Role Status Dates Services Family [facility] Primary Care Provider Active Team Status: Active Member Role Status Dates Jaswinder Lemus MD Attending Provider Active Start: August 17, 2004 Team Status: Inactive Member Role Status Dates Services Family [facility] Primary Care Provider Active Start: January 14, 2024 End: January 14, 2024 Debora Griffin MD Emergency Provider Active St art: January 14, 2024 End: January 14, 2024 Team Status: Inactive Member Role Status Dates Sung Crocker DO Emergency Provider Active Sta rt: February 11, 2024 End: February 11, 2024 Services [facility] Primary Care Provider Active Start: February 11, 2024 End: February 11, 2024 Team Status: Inactive Member Role Status Dates Services [facility] Primary Care Provider Active Start: February 24, 2024 End: February 24, 2024 Tarik Cutler DO Emergency Provider Active Start: February 24, 2024 End: February 24, 2024 Certified Nursing Attendant Relationship Specialty Start Date End Date No Pcp, [place] [address] PCP - General Family Medicine 04/21/24 Certified Nursing Attendant Relationship Specialty Start Date End Date No Pcp, [place] [address] PCP - General Family Medicine 04/21/24 Certified Nursing Attendant Relationship Specialty Start Date End Date Lucie Barry MD [address] [facility] [address] [place] [address] PCP - General Family Medicine 09/07/22 Karine Aranda, MAURA [address] [facility] [address] [place] [address] PCP - ACO Reach 08/31/23 Certified Nursing Attendant Relationship Specialty Start Date End Date [place] [address] PCP - General Family Medicine 09/01/23 Certified Nursing Attendant Relationship Specialty Start Date End Date Lucie Barry MD [place], [place] [id number] PCP - General Family Medicine 03/01/22 Certified Nursing Attendant Relationship Specialty Start Date [place] [address] PCP - General Family Medicine 03/01/22 Certified Nursing Attendant Relationship Specialty Start Date End Date Deena Perkins MD [address] [place] [address] PCP - General Internal Medicine 08/06/24 Goals (unrecognized section and content) Goals may be documented in a n alternate sectionGoals may be documented in an alternate sectionGoals may be documented in an alternate sectionNot on filedocumented as of this encounterNot on filedocumented as of this encounterNot on filedocumented as of this encounter Reason for Visit (unrecogniz ed section and content) Reason Onset Date Comments Results 04/21/2024 Specialty Diagnoses / Procedures Referred By Riya bassett Referred To Contact Diagnoses Anemia Anemia Dona Kincaid MD [address] , [facility] [address] [place] [address] Referral ID Status Reason Start Date Expiration Date Visits Re quested Visits Authorized [id number] 1 1 Reason Comments Follow-up Scheduled Active and Recently Administ ered Medications (unrecognized section and content) Medication Order 04/21/2024 04/22/2024 04/23/2024 atorvastatin (LIPITOR) tablet 80 mg 80 mg, oral, Daily, First dose on 04/21/24 at 0900, Look-alike/sound-alike medication - verify indication for use. 0903 (Given - Provider: Yomaira Beltrán RN) 0844 (Given - Provider: Yomaira Beltrán RN) 0922 (Given - Provider: Aidee Reina RN) bumetanide (BUMEX) tablet 0.5 mg 0.5 mg, oral, Daily, First dose on 04/21/24 at 0900 0904 (Given - Provider: Yomaira Beltrán RN) 0842 (Given - Provider: Yomaira Beltrán RN) 09 (Given - Provider: Aidee Reina RN) carvediloL (COREG) tablet 3.125 mg (CANCELED) 3.125 mg, oral, Bedtime, First dose on 04/21/24 at 2200, Give with meal or snack. Look-alike/sound-alike medication - verify indication for use. 2152 (Given - Provider: Daysi Henderson RN) carvediloL (COREG) tablet 6.25 mg 6.25 mg, oral, Bedtime, First dose (after last modification) on 04/22/24 at 2200, Give with meal or snack. Look-alike/sound-alike medication - verify indication for use. 2219 (Given - Provider: Beatriz Gonsales RN) docusate sodium (COLACE) capsule 100 mg 100 mg, oral, 2 times daily, First dose on 04/21/24 at 0900, Look-alike/sound-alike medication - verify indication for use. 09 (Given - Provider: Yomaira Beltrán RN)215 (Given - Provider: Daysi Henderson RN) 08 (Given - Provider: Yomaira Beltrán RN)2219 (Given - Provider: Beatriz Gonsales RN) 09 (Given - Provider: Aidee Reina RN) heparin (porcine) injection 5,000 Units 5,000 Units, subcutaneous, Every 8 hours scheduled, First dose on 04/22/24 at 0600, Notify prescriber if INR greater than 1.9, hemoglobin less than 10 mg/dL, aPTT greater than 40 seconds, and/or platelet count less than 100,000/mm Look-alike/sound-alike medication - verify indication for use. Observe for bleeding. 06 (Given - Provider: Daysi Henderson RN)145 (Given - Provider: Yomaira Beltrán RN)222 (Given - Provider: Beatriz Gonsales RN) 06 (Given - Provider: Beatriz Gonsales RN)1449 (Given - Provider: Aidee Reina, JOLEEN) insulin glargine (LANTUS, SEMGLEE) injection pen 12 Units 12 Units, subcutaneous, Daily, First dose on 04/21/24 at 0900, Look-alike/sound-alike medication - verify indication for use. Prime with 2 units of insulin prior to administration. Basal (long acting) insulin for subcutaneous administration only. Do not mix with any other insulin. Pre-filled pens stable 28 days at room temperature. 0912 (Given - Provider: Yomaira Beltrán RN) 0846 (Given - Provider: Yomaira Beltrán RN) 0923 (Given - Provider: Aidee Reina RN) insulin lispro (HumaLOG) injection 2-10 Units 2-10 Units, subcutaneous, 3 times daily with meals, First dose on 04/21/24 at 0800, Daytime hyperglycemia dosing. For blood glucose 151-200 mg/dL, give 2 units. For blood glucose 201-250 mg/dL, give 4 units. For blood glucose 251-300 mg/dL, give 6 units. For blood glucose 301-350 mg/dL, give 8 units. For blood glucose 351-400 mg/dL, give 10 units. Give even if NPO or meals skipped. Do NOT give more often then every 4 hours when NPO. Notify prescriber if blood glucose greater than 400 mg/dL. Look-alike/sound-alike medication - verify indication for use. Prime with 2 units of insulin prior to administration. Prandial/supplemental Insulin. Pre-filled pens stable 28 days at room temperature. Insulin lispro should be administered within 15 minutes before or immediately after a meal. 0911 (Given - Provider: Yomaira Beltrán RN)1316 (Given - Provider: Yomaira Beltrán RN)1700 (Not Given - Provider: Yomaira Beltrán RN - Reason: Order parameters not met) 0846 (Given - Provider: Yomaira Beltrán RN)1138 (Given - Provider: Yomaira Beltrán RN)1721 (Given - Provider: Yomaira Beltrán RN) 0800 (Not Given - Provider: Aidee Reina RN - Reason: Patient/family refused)1136 (Given - Provider: Aidee Reina RN)1700 (Given - Provider: Aidee Reina RN) insulin lispro (HumaLOG) injection 2-8 Units 2-8 Units, subcutaneous, Nightly, First dose on 04/21/24 at 2200, Bedtime hyperglycemia dosing. For blood glucose 201-250 mg/dL, give 2 units. For blood glucose 251-300 mg/dL, give 4 units. For blood glucose 301-350 mg/dL, give 6 units. For blood glucose 351-400 mg/dL, give 8 units. Give even if NPO or meals skipped. Do NOT give more often then every 4 hours when NPO. Notify prescriber if blood glucose greater than 400 mg/dL. Look-alike/sound-alike medication - verify indication for use. Prime with 2 units of insulin prior to administration. Prandial/supplemental Insulin. Pre-filled pens stable 28 days at room temperature. Insulin lispro should be administered within 15 minutes before or immediately after a meal. 2200 (Not Given - Provider: Daysi Henderson RN - Reason: Order parameters not met) 2220 (Given - Provider: Beatriz Gonsales RN) isosorbide mononitrate (IMDUR) 24 hr tablet 30 mg 30 mg, oral, Daily, First dose on 04/21/24 at 0900, Do not crush or chew. 903 (Given - Provider: Yomaira Beltrán RN) 09 (Not Given - Provider: Yomaira Beltrán RN - Reason: Other - Comment: dialysis) 922 (Given - Provider: Aidee Reina RN) levothyroxine (SYNTHROID, LEVOTHROID) tablet 188 mcg (CANCELED) 188 mcg, oral, Daily, First dose on 04/21/24 at 0600, Look-alike/sound-alike medication. Verify indication for use Administer on empty stomach at least ONE hour before or TWO hours after food Enteral Feeding: For 7 days or less of tube feeding- do NOT hold tube feedings, after 7 days- hold tube feedings ONE hour before and ONE hour after administration DOES NOT APPLY TO NEONATES Monitor thyroid function tests weekly 0534 (Given - Provider: Elaina Cueva RN) 06 (Given - Provider: Daysi Henderson RN) levothyroxine (SYNTHROID, LEVOTHROID) tablet 200 mcg 200 mcg, oral, Daily, First dose (after last modification) on 04/23/24 at 0600, Look-alike/sound-alike medication. Verify indication for use Administer on empty stomach at least ONE hour before or TWO hours after food Enteral Feeding: For 7 days or less of tube feeding- do NOT hold tube feedings, after 7 days- hold tube feedings ONE hour before and ONE hour after administration DOES NOT APPLY TO NEONATES Monitor thyroid function tests weekly 620 (Given - Provider: Beatriz Gonsales RN) loratadine (CLARITIN) tablet 10 mg 10 mg, oral, Daily, First dose on 04/21/24 at 0900, Look-alike/sound-alike medication - verify indication for use. 09 (Given - Provider: Yomaira Beltrán RN) 08 (Given - Provider: Yomaira Beltrán RN) 922 (Given - Provider: Aidee Reina RN) losartan (COZAAR) tablet 100 mg 100 mg, oral, Daily, First dose (after last modification) on Tue04/22/24 at 0900, Look-alike/sound-alike medication - verify indication for use. 899 (Not Given - Provider: Yomaira Beltrán RN - Reason: Other - Comment: dialysis) 922 (Given - Provider: Aidee Reina RN) losartan (COZAAR) tablet 50 mg (CANCELED) 50 mg, oral, Daily, First dose on 04/21/24 at 0900, Look-alike/sound-alike medication - verify indication for use. 09 (Given - Provider: Yomaira Beltrán RN) polyethylene glycol (GLYCOLAX) packet 17 g 17 g, oral, Daily, First dose on 04/21/24 at 0900, Look-alike/sound-alike medication - verify indication for use. Dissolve 1 packet (17 gm) in 8 ounces of water, juice, soda, coffee or tea. 09 (Given - Provider: Yomaira Beltrán RN) 08 (Given - Provider: oYmaira Beltrán RN) 09 (Given - Provider: Aidee Reina RN) sevelamer (RENVELA) tablet 800 mg 800 mg, oral, 2 times daily with meals, First dose on 04/21/24 at 0800, Look-alike/sound-alike medication - verify indication for use Give with meals Administer other medications 1 hour before or 3 hours after Enteral Feeding: Lanthanum and sevelamer TABLETS are not recommended to be crushed and administered in feeding tube due to risk of clogging tube Alternative: sevelamer carbonate suspension/packets or calcium carbonate per tube 0903 (Given - Provider: Yomaira Beltrán RN)1653 (Given - Provider: Yomaira Beltrán RN) 0842 (Given - Provider: Yomaira Beltrán RN)1708 (Given - Provider: Yomaira Beltrán RN) 0922 (Given - Provider: Aidee Reina RN)1659 (Given - Provider: Aidee Reina RN) sodium chloride 0.9 % flush 3 mL 3 mL, intravenous, Every 12 hours scheduled, First dose on 04/21/24 at 0245 0245 (Given - Provider: Elaina Cueva RN)0900 (Given - Provider: Yomaira Beltrán RN)2154 (Given - Provider: Daysi Henderson RN) 0900 (Given - Provider: Yomaira Beltrán RN)2225 (Given - Provider: Beatriz Gonsales RN) 0930 (Given - Provider: Aidee Reina RN) PRN Medication Order 04/21/2024 04/22/2024 04/23/2024 acetaminophen (TYLENOL EXTRA STRENGTH) tablet 500 mg 500 mg, oral, Every 6 hours PRN, mild pain - pain scale 1-3, headaches, temperature greater than 38 C, Starting on 04/21/24 at 0235, [Warning: Total Acetaminophen not to exceed more than 4 grams (4000 mg) in 24 hours] 2019 (Given - Provider: Daysi Henderson RN) guaiFENesin (MUCINEX) tablet 600 mg 600 mg, oral, Every 12 hours PRN, congestion, Starting on 04/21/24 at 0241, Look-alike/sound-alike medication - verify indication for use. Do not crush or chew. hydrALAZINE (APRESOLINE) injection 10 mg 10 mg, intravenous, Every 4 hours PRN, high blood pressure, SBP > 180, Starting on 04/21/24 at 1717, Look-alike/sound-alike medication - verify indication for use. Administer IV doses as a slow IV push; maximum rate: 5 mg/minute. 1844 (Given - Provider: Yomaira Beltrán RN) perflutren lipid microspheres (DEFINITY) dilution injection 1.43 mg/10 mL (COMPLETED) 2 mL, intravenous, Once in imaging, contrast, Starting on Tue04/23/24 at 0805, For 1 dose, Dilute 1.3 mL of Definity with 8.7 mL 0.9% NaCl in 10 mL syringe. Administer 2 mL perflutren (Definity) contrast if 2 contiguous segments of the LV are not well visualized. May repeat 2 mL dose until LV visualization is accomplished. Procedure total dose not to exceed 10 mL. 0750 (Given - Provid er: SENA Joshi) prochlorperazine (COMPAZINE) injection 5 mg(Linked Group 1) 5 mg, intravenous, Every 6 hours PRN, nausea, vomiting, if patient unable to tolerate PO, Starting on 04/21/24 at 0240, When administered via IV Push, do not exceed 5 mg per minute prochlorperazine (COMPAZINE) injection 5 mg(Linked Group 1) 5 mg, intramuscular, Every 8 hours PRN, nausea, vomiting, if patient unable to tolerate PO and does not have IV access, Starting on 04/21/24 at 0240, When administered via IV Push, do not exceed 5 mg per minute prochlorperazine (COMPAZINE) tablet 5 mg(Linked Group 1) 5 mg, oral, Every 6 hours PRN, nausea, vomiting, Starting on 04/21/24 at 0240 sennosides-docusate sodium (SENOKOT-S) 8.6-50 mg 1 tablet 1 tablet, oral, Every 12 hours PRN, constipation, Starting on 04/21/24 at 0235 sodium chloride 0.9 % flush 3 mL 3 mL, intravenous, As needed, line care, before and after each intermittent use, Starting on 04/21/24 at 0235 Linked Groups Order Group 1: prochlorperazine (COMPAZINE) tablet 5 mgJump to med 5 mg, oral, Every 6 hours PRN, nausea, vomiting, Starting on 04/21/24 at 0240 Or prochlorperazine (COMPAZINE) injection 5 mgJump to med 5 mg, intravenous, Every 6 hours PRN, nausea, vomiting, if patient unable to tolerate PO, Starting on 04/21/24 at 0240, When administered via IV Push, do not exceed 5 mg per minute Or prochlorperazine (COMPAZINE) injection 5 mgJump to med 5 mg, intramuscular, Every 8 hours PRN, nausea, vomiting, if patient unable to tolerate PO and does not have IV access, Starting on 04/21/24 at 0240, When administered via IV Push, do not exceed 5 mg per minute Scheduled Medication Order 09/01/2023 09/02/2023 09/03/2023 atorvastatin (LIPITOR) tablet 80 mg 80 mg, oral, Daily, First dose on Tue09/02/23 at 0900, Look-alike/sound-alike medication - verify indication for use. 1333 (Given - Provider: Lavonne Prince RN) 1327 (Given - Provider: Lavonne Prince RN) B complex-vitamin C-folic acid (DIALYVITE) 100-1 mg per tablet 1 tablet 1 tablet, oral, Daily, First dose on Tue09/02/23 at 0900 1332 (Given - Provider: Lavonne Prince RN) 1331 (Given - Provider: Lavonne Prince RN) bumetanide (BUMEX) tablet 0.5 mg 0.5 mg, oral, Daily, First dose on Tue09/02/23 at 0900 1332 (Given - Provider: Lavonne Prince RN) 1328 (Given - Provider: Lavonne Prince RN) carvediloL (COREG) tablet 3.125 mg 3.125 mg, oral, Bedtime, First dose on Tue09/01/23 at 2200, Give with meal or snack. Look-alike/sound-alike medication - verify indication for use. 2129 (Given - Provider: Brigitte Peng RN) 2002 (Given - Provider: Maye Guadalupe RN) 2199 (Due) darbepoetin axel-polysorbate (ARANESP) injection 100 mcg 100 mcg, subcutaneous, Weekly, First dose on Tue09/02/23 at 1430, Do not administer if the patient's hemoglobin is greater than 12 g/dl., Indications: ESRD on Dialysis, anemia, anemia due to renal failure 1506 (Given - Provider: Lavonne Prince RN) docusate sodium (COLACE) capsule 100 mg 100 mg, oral, 2 times daily, First dose on Tue09/01/23 at 2100, Look-alike/sound-alike medication - verify indication for use. 2129 (Given - Provider: Brigitte Peng RN) 133 (Given - Provider: Lavonne Prince RN)2001 (Given - Provider: Maye Guadalupe, RN) 1327 (Given - Provider: Lavonne Prince RN)2100 (Due) insulin glargine (LANTUS, SEMGLEE) injection pen 12 Units 12 Units, subcutaneous, Daily, First dose on Tue09/02/23 at 0900, Look-alike/sound-alike medication - verify indication for use. Prime with 2 units of insulin prior to administration. Basal (long acting) insulin for subcutaneous administration only. Do not mix with any other insulin. Pre-filled pens stable 28 days at room temperature. 0900 (Not Given - Provider: Lavonne Prince RN - Reason: Patient/family refused) 0900 (Not Given - Provider: Lavonne Prince RN - Reason: Patient/family refused) insulin lispro (HumaLOG) injection 2-10 Units 2-10 Units, subcutaneous, 3 times daily with meals, First dose on Tue09/01/23 at 1700, Daytime hyperglycemia dosing. For blood glucose 151-200 mg/dL, give 2 units. For blood glucose 201-250 mg/dL, give 4 units. For blood glucose 251-300 mg/dL, give 6 units. For blood glucose 301-350 mg/dL, give 8 units. For blood glucose 351-400 mg/dL, give 10 units. Give even if NPO or meals skipped. Do NOT give more often then every 4 hours when NPO. Notify prescriber if blood glucose greater than 400 mg/dL. Look-alike/sound-alike medication - verify indication for use. Prime with 2 units of insulin prior to administration. Prandial/supplemental Insulin. Pre-filled pens stable 28 days at room temperature. Insulin lispro should be administered within 15 minutes before or immediately after a meal. 1700 (Not Given - Provider: Sheila Engle RN - Reason: Order parameters not met - Comment: BS 118) 0800 (Not Given - Provider: Lavonne Prince RN - Reason: Order parameters not met)1200 (Not Given - Provider: Lavonne Prince RN - Reason: Patient/family refused)1700 (Not Given - Provider: Lavonne Prince RN - Reason: Patient/family refused) 0800 (Not Given - Provider: Lavonne Prince RN - Reason: Order parameters not met)1200 (Not Given - Provider: Lavonne Prince RN - Reason: Order parameters not met)1700 (Not Given - Provider: Lavonne Prince RN - Reason: Patient/family refused) insulin lispro (HumaLOG) injection 2-8 Units 2-8 Units, subcutaneous, Nightly, First dose on Tue09/01/23 at 2200, Bedtime hyperglycemia dosing. For blood glucose 201-250 mg/dL, give 2 units. For blood glucose 251-300 mg/dL, give 4 units. For blood glucose 301-350 mg/dL, give 6 units. For blood glucose 351-400 mg/dL, give 8 units. Give even if NPO or meals skipped. Do NOT give more often then every 4 hours when NPO. Notify prescriber if blood glucose greater than 400 mg/dL. Look-alike/sound-alike medication - verify indication for use. Prime with 2 units of insulin prior to administration. Prandial/supplemental Insulin. Pre-filled pens stable 28 days at room temperature. Insulin lispro should be administered within 15 minutes before or immediately after a meal. 2200 (Not Given - Provider: Brigitte Peng RN - Reason: Order parameters not met) 2200 (Not Given - Provider: Maye Guadalupe RN - Reason: Order parameters not met) 2200 (Due) isosorbide mononitrate (IMDUR) 24 hr tablet 30 mg 30 mg, oral, Daily, First dose on Tue09/02/23 at 0900, Do not crush or chew. 1332 (Given - Provider: Lavonne Prince RN) 1327 (Given - Provider: Lavonne Prince RN) levothyroxine (SYNTHROID, LEVOTHROID) tablet 188 mcg 188 mcg, oral, Daily, First dose on Tue09/02/23 at 0600, Look-alike/sound-alike medication. Verify indication for use Administer on empty stomach at least ONE hour before or TWO hours after food Enteral Feeding: For 7 days or less of tube feeding- do NOT hold tube feedings, after 7 days- hold tube feedings ONE hour before and ONE hour after administration DOES NOT APPLY TO NEONATES Monitor thyroid function tests weekly 520 (Given - Provider: Brigitte Peng RN) 452 (Given - Provider: Maye Guadalupe, RN) midodrine (PROAMATINE) tablet 5 mg 5 mg, oral, User Specified (Once per day on Tuesday), First dose (after last modification) on Tue09/03/23 at 0900, Hemodialysis, Take once on HD days Hold for SBP >110 Look-alike/sound-alike medication - verify indication for use. 0900 (Not Given - Provider: Lavonne Prince RN - Reason: Patient/family refused) midodrine (PROAMATINE) tablet 5 mg (COMPLETED) 5 mg, oral, Once, On Tue09/02/23 at 1115, For 1 dose, During hemodialysis Look-alike/sound-alike medication - verify indication for use. 111 (Given - Provider: Ann Bonilla RN)1115 (Not Given - Provider: Lavonne Prince RN - Reason: Other - Comment: Given under separate MAR entry) pantoprazole (PROTONIX) EC tablet 40 mg 40 mg, oral, Every morning before breakfast, First dose on Tue09/02/23 at 0700, Look-alike/sound-alike medication - verify indication for use. If patient is receiving enteral feeding, consider alternative PPI or continue IV pantoprazole until the delayed-release tablet can be taken orally, Indication: GERD 520 (Given - Provider: Brigitte Peng RN) 452 (Given - Provider: Maye Guadalupe, JOLEEN) polyethylene glycol (GLYCOLAX) powder 17 g 17 g, oral, Daily, First dose on Tue09/02/23 at 0900, Lookf-alike/sound-alike medication - verify indication of use. Dissolve 1 capful in 8 ounces of water, juice, soda, coffee or tea. 0900 (Not Given - Provider: Lavonne Prince RN - Reason: Patient/family refused) 0900 (Not Given - Provider: Lavonne Prince RN - Reason: Patient/family refused) sennosides-docusate sodium (SENOKOT-S) 8.6-50 mg 1 tablet 1 tablet, oral, 2 times daily, First dose on Tue09/01/23 at 2100 2130 (Given - Provider: Brigitte Peng RN) 1333 (Given - Provider: Lavonne Prince RN)2001 (Given - Provider: Maye Guadalupe RN) 1328 (Given - Provider: Lavonne Prince RN)2100 (Due) sevelamer (RENVELA) tablet 800 mg 800 mg, oral, 2 times daily with meals, First dose on Tue09/01/23 at 2100, Look-alike/sound-alike medication - verify indication for use Give with meals Administer other medications 1 hour before or 3 hours after Enteral Feeding: Lanthanum and sevelamer TABLETS are not recommended to be crushed and administered in feeding tube due to risk of clogging tube Alternative: sevelamer carbonate suspension/packets or calcium carbonate per tube 2099 (Canceled Entry - Provider: Brigitte Peng RN - Comment: To be given with meals per [employer] [facility]) 1332 (Given - Provider: Lavonne Prince RN)1814 (Given - Provider: Lavonne Prince RN) 0800 (Not Given - Provider: Lavonne Prince RN - Reason: Other - Comment: Pt states she is not hungry and does not usually eat breakfast)1327 (Given - Provider: Lavonne Prince RN)1700 (Not Given - Provider: Lavonne Prince RN - Reason: Patient/family refused) sodium chloride 0.9 % bolus (COMPLETED) 300 mL, intravenous, at 1,200 mL/hr, Administer over 15 Minutes, Once in dialysis, On Tue09/02/23 at 0830, For 1 dose, Hemodialysis, as priming solution for hemodialysis tubing. 0830 (New Bag - Provider: Ann Bonilla, JOLEEN)0845 (Stop Bag - Provider: Ann Bonilla, JOLEEN) sodium chloride 0.9 % flush 3 mL 3 mL, intravenous, Every 12 hours scheduled, First dose on Emilie 09/01/23 at 2100 2144 (Given - Provider: Brigitte Peng, JOLEEN) 1333 (Given - Provider: Lavonne Prince, RN)2003 (Given - Provider: Maye Guadalupe RN) 0900 (Given - Provider: Lavonne Prince RN)2100 (Due) PRN Medication Order 09/01/2023 09/02/2023 09/03/2023 acetaminophen (TYLENOL) tablet 650 mg 650 mg, oral, Every 6 hours PRN, headaches, temperature greater than 38 C, mild pain - pain scale 1-3, Starting on Emilie 09/01/23 at 1516 albuterol (PROVENTIL,VENTOLIN) nebulizer solution 2.5 mg 2.5 mg, nebulization, Every 4 hours PRN, shortness of breath, wheezing, Starting on Emilie 09/01/23 at 1950, Implement INPATIENT/ED Bronchodilator Clinical Practice Guidelines? Yes, Document: [email or web address]\Orders\Resp iratory Care Guidelines\CPG Bronchodilator [email or web address].pdf dextrose (GLUTOSE) 40 % gel 15 g 15 g, oral, As needed, low blood sugar, blood glucose less than 70 mg/dL, Starting on Emilie 09/01/23 at 1512, If patient conscious and taking PO. If blood glucose is not greater than 70 mg/dL after initial treatment, repeat treatment. dextrose 5 % (D5W) infusion 100 mL/hr, intravenous, Continuous PRN, blood glucose less than 70 mg/dL, Starting on Emilie 09/01/23 at 1512, Use immediately following dextrose 50% or glucagon treatment for patients who are unconscious or NPO. Contact prescriber for additional orders. If blood glucose is not greater than 70 mg/dL after initial treatment, repeat treatment. dextrose 50 % in water (D50W) 50% solution 25 mL 25 mL, intravenous, As needed, low blood sugar, blood glucose less than 70 mg/dL and unconscious or NPO with IV access, Starting on Emilie 09/01/23 at 1512, Push over 1-3 minutes STAT. If conscious and not NPO, immediately follow with meal tray or high protein (7 grams) snack if tray not available. If NPO, initiate 5% dextrose in water at 100 mL/hr and contact prescriber for additional orders. If blood glucose is not greater than 70 mg/dL after initial treatment, repeat treatment. VESICANT (RED) Warning: HYPERTONIC solution. glucagon HCL injection 1 mg 1 mg, intramuscular, As needed, low blood sugar, blood glucose less than 70 mg/dL and unconscious or NPO without IV access., Starting on Tue09/01/23 at 1512, If conscious and not NPO, immediately follow with meal tray or high protein (7Grams) snack if tray not available. If NPO, initiate IV 5% Dextrose/Water at 100 mL/hr and contact prescriber for additional orders. If blood glucose is not greater than 70 mg/dL after initial treatment, repeat treatment. guaiFENesin (MUCINEX) tablet 600 mg 600 mg, oral, Every 12 hours PRN, congestion, Starting on Tue09/01/23 at 1951, Look-alike/sound-alike medication - verify indication for use. Do not crush or chew. midodrine (PROAMATINE) tablet 5 mg 5 mg, oral, As needed, pre and mid dialysis for SBP less than 100, Starting on Tue09/02/23 at 1107, Look-alike/sound-alike medication - verify indication for use. ondansetron ODT (ZOFRAN ODT) disintegrating tablet 4 mg 4 mg, oral, Every 6 hours PRN, nausea, vomiting, Starting on Tue09/01/23 at 1516, For 1 dose sodium chloride 0.9 % flush 3 mL 3 mL, intravenous, As needed, line care, before and after each intermittent use, Starting on Tue09/01/23 at 1512 sodium chloride 0.9 % flush bag 25 mL, intravenous, at 100 mL/hr, Administer over 15 Minutes, As needed, line care, line care after IVPB administration, Starting on Tue09/01/23 at 1512 sodium chloride 0.9 % infusion 20 mL/hr, intravenous, Continuous PRN, to maintain patency of lines, Starting on Tue09/01/23 at 1512 sodium chloride 0.9 % infusion 20 mL/hr, intravenous, Continuous PRN, per policy for blood product transfusion, Starting on Tue09/02/23 at 2222, For 24 hours, Initiate prior to blood product transfusion. Continue before and after each blood product transfusion. Discontinue upon completion of blood product transfusion(s). Scheduled Medication Order 08/08/2024 08/09/2024 08/10/2024 albumin human 25 % IVPB Premix 25 g 25 g, intravenous, Once, On Tue08/08/24 at 1730, For 1 dose, Hemodialysis, Do not exceed 1 mL/minute in patients with normal plasma volume; 2 to 3 mL/minute in patients with hypoproteinemia For BUMINATE, administer using a 15 micron or smaller filter. A filter is NOT required for administration by other brands., Indication: Symptomatic Hypotension During Hemodialysis 1730 (Canceled Entry - Provider: Kendra Cardenas RN) 1430 (Restarted - Provider: Марина Medina, RN)1439 (Stop Bag - Provider: Марина Medina, RN) B complex-vitamin C-folic acid (DIALYVITE) 100-1 mg per tablet 1 tablet 1 tablet, oral, Daily, First dose on Tue08/09/24 at 1030 1114 (Given - Provider: Viktoria Allison RN) 0837 (Given - Provider: Viktoria Allison RN) insulin lispro (HumaLOG) injection 1-4 Units 1-4 Units, subcutaneous, Nightly, First dose on Tue08/09/24 at 2200, Bedtime hyperglycemia dosing. For blood glucose 201-250 mg/dL, give 1 unit. For blood glucose 251-300 mg/dL, give 2 units. For blood glucose 301-350 mg/dL, give 3 units. For blood glucose 351-400 mg/dL, give 4 units. Give even if NPO or meals skipped. Do NOT give more often than every 4 hours when NPO. Notify prescriber if blood glucose greater than 400 mg/dL. Look-alike/sound-alike medication - verify indication for use. Prime with 2 units of insulin prior to administration. Prandial/supplemental Insulin. Pre-filled pens stable 28 days at room temperature. Insulin lispro should be administered within 15 minutes before or immediately after a meal. 2200 (Not Given - Provider: Kendra Cardenas RN - Reason: Order parameters not met) 2200 (Due) insulin lispro (HumaLOG) injection 1-5 Units 1-5 Units, subcutaneous, 3 times daily with meals, First dose on Tue08/09/24 at 1200, Daytime hyperglycemia dosing. For blood glucose 151-200 mg/dL, give 1 unit. For blood glucose 201-250 mg/dL, give 2 units. For blood glucose 251-300 mg/dL, give 3 units. For blood glucose 301-350 mg/dL, give 4 units. For blood glucose 351-400 mg/dL, give 5 units. Give even if NPO or meals skipped. Do NOT give more often than every 4 hours when NPO. Notify prescriber if blood glucose greater than 400 mg/dL. Look-alike/sound-alike medication - verify indication for use. Prime with 2 units of insulin prior to administration. Prandial/supplemental Insulin. Pre-filled pens stable 28 days at room temperature. Insulin lispro should be administered within 15 minutes before or immediately after a meal. 1119 (Given - Provider: Viktoria Allison RN - Comment: bs 178)1700 (Not Given - Provider: Viktoria Allison RN - Reason: Order parameters not met - Comment: bs 119) 0800 (Not Given - Provider: Viktoria Allison RN - Reason: Order parameters not met)1200 (Not Given - Provider: Viktoria Allison RN - Reason: Order parameters not met)1700 (Not Given - Provider: Viktoria Allison RN - Reason: Other - Comment: 128) levothyroxine (SYNTHROID, LEVOTHROID) tablet 200 mcg 200 mcg, oral, Daily, First dose on Tue08/08/24 at 0600, Look-alike/sound-alike medication. Verify indication for use Administer on empty stomach at least ONE hour before or TWO hours after food Enteral Feeding: For 7 days or less of tube feeding- do NOT hold tube feedings, after 7 days- hold tube feedings ONE hour before and ONE hour after administration DOES NOT APPLY TO NEONATES Monitor thyroid function tests weekly 0510 (Given - Provider: Rocio Lujan RN) 0809 (Given - Provider: Viktoria Allison RN) 0553 (Given - Provider: Kendra Cardenas RN) nystatin (MYCOSTATIN) powder 1 Application 1 Application, topical, 2 times daily, First dose on Tue08/08/24 at 0915, Apply to underneath left breast. Look-alike/sound-alike medication - verify indication for use. 0915 (Not Given - Provider: Clare Puente RN - Reason: Medication not available - Comment: antifingal powder used)2148 (Given - Provider: Kendra Cardenas RN) 0810 (Given - Provider: Viktoria Allison RN)2100 (Given - Provider: Kendra Cardenas RN) 0838 (Given - Provider: Viktoria Allison RN)2100 (Due) ondansetron (PF) (ZOFRAN) injection 4 mg (COMPLETED) 4 mg, intravenous, Once, On Tue08/09/24 at 1500, For 1 dose, Administer over 2-5 minutes. 1453 (Given - Provider: Марина Medina, RN) ondansetron (PF) (ZOFRAN) injection 4 mg (COMPLETED) 4 mg, intravenous, Once, On Tue08/10/24 at 1445, For 1 dose, Hemodialysis, Administer over 2-5 minutes. 1446 (Given - Provider: Марина Medina RN) pantoprazole (PROTONIX) EC tablet 40 mg 40 mg, oral, Every morning before breakfast, First dose on Tue08/10/24 at 0815, Look-alike/sound-alike medication - verify indication for use. If patient is receiving enteral feeding, consider alternative PPI or continue IV pantoprazole until the delayed-release tablet can be taken orally, Indication: Acute Upper GI Bleed/Positive Stool Occult Blood 0838 (Given - Provider: Viktoria Allison RN) pantoprazole (PROTONIX) injection 40 mg (CANCELED) 40 mg, intravenous, Every 12 hours, First dose on Tue08/07/24 at 2345, Look-alike/sound-alike medication - verify indication for use., Indication: Upper GI bleed 1020 (Given - Provider: Clare Puente, JOLEEN)2147 (Given - Provider: Kendra Cardenas RN) 0810 (Given - Provider: Viktoria Allison RN)2004 (Given - Provider: Kendra Cardenas RN) sennosides-docusate sodium (SENOKOT-S) 8.6-50 mg 2 tablet 2 tablet, oral, Nightly, First dose on Tue08/09/24 at 2200 2200 (Given - Provider: Kendra Cardenas RN) 2200 (Due) sertraline (ZOLOFT) tablet 100 mg 100 mg, oral, Daily, First dose on Tue08/09/24 at 1015, Look-alike/sound-alike medication - verify indication for use. 1114 (Given - Provider: Viktoria Allison RN) 0838 (Given - Provider: Viktoria Allison RN) sevelamer (RENVELA) tablet 800 mg (CANCELED) 800 mg, oral, 2 times daily with meals, First dose on Tue08/08/24 at 0800, Look-alike/sound-alike medication - verify indication for use Give with meals Administer other medications 1 hour before or 3 hours after Enteral Feeding: Lanthanum and sevelamer TABLETS are not recommended to be crushed and administered in feeding tube due to risk of clogging tube Alternative: sevelamer carbonate suspension/packets or calcium carbonate per tube 0800 (Not Given - Provider: Clare Puente RN - Reason: NPO)1700 (Not Given - Provider: Clare Puente RN - Reason: Patient not available - Comment: in dialysis) 0809 (Given - Provider: Viktoria Allison RN)1714 (Given - Provider: Viktoria Allison RN) sodium chloride 0.9 % flush 3 mL 3 mL, intravenous, Every 12 hours scheduled, First dose on Tue08/07/24 at 2315 1028 (Given - Provider: Clare Puente RN)2149 (Given - Provider: Kendra Cardenas RN) 0810 (Given - Provider: Viktoria Allison RN)2100 (Given - Provider: Kendra Cardenas RN) 0838 (Given - Provider: Viktoria Allison RN)2100 (Due) PRN Medication Order 08/08/2024 08/09/2024 08/10/2024 acetaminophen (TYLENOL) tablet 650 mg 650 mg, oral, Every 6 hours PRN, mild pain - pain scale 1-3, moderate pain - pain scale 4-6, severe pain - pain scale 7-10, headaches, temperature greater than 38 C, Starting on Tue08/08/24 at 0019 0809 (Given - Provider: Viktoria Allison RN)1951 (Given - Provider: Kendra Cardenas RN) 1937 (Given - Provider: Kendra Cardenas RN) calcium carbonate (TUMS) 200 mg elemental (500 mg) chewable tablet 200 mg 200 mg, oral, 3 times daily PRN, heartburn, indigestion, Starting on Tue08/08/24 at 0019, Ordered as elemental calcium. 200 mg elemental calcium = 500 mg calcium carbonate calcium gluconate 3,000 mg in sodium chloride 0.9 % 100 mL IVPB 3,000 mg, intravenous, at 43.3 mL/hr, Administer over 3 Hours, As needed, ionized calcium 3.5 to 3.9 mg/dL, Starting on Tue08/08/24 at 0018, IV Administration of calcium via a central or deep vein preferred. Avoid administration in small hand veins VESICANT (RED) calcium gluconate 4,000 mg in sodium chloride 0.9 % 250 mL IVPB 4,000 mg, intravenous, at 72.5 mL/hr, Administer over 4 Hours, As needed, ionized calcium 3.4 mg/dL or less, Starting on Tue08/08/24 at 0018, IV administration of calcium via a central or deep vein is preferred. Avoid administration in small hand veins. VESICANT (RED) calcium gluconate IVPB 2000 mg/100 mL (20 mg/mL premix) 2,000 mg, intravenous, at 50 mL/hr, Administer over 2 Hours, As needed, ionized calcium 4 to 4.3 mg/dL, Starting on Tue08/08/24 at 0018, IV Administration of calcium via a central or deep vein preferred. Avoid administration in small hand veins VESICANT (RED) dextrose (GLUTOSE) 40 % gel 15 g 15 g, oral, As needed, low blood sugar, blood glucose less than 70 mg/dL, Starting on Tue08/07/24 at 2313, If patient conscious and taking PO. If blood glucose is not greater than 70 mg/dL after initial treatment, repeat treatment. dextrose 50 % in water (D50W) 50% solution 25 mL 25 mL, intravenous, As needed, low blood sugar, blood glucose less than 70 mg/dL and unconscious or NPO with IV access, Starting on Tue08/07/24 at 2313, Push over 1-3 minutes STAT. If conscious and not NPO, immediately follow with meal tray or high protein (7 grams) snack if tray not available. If NPO, initiate 5% dextrose in water at 100 mL/hr and contact prescriber for additional orders. If blood glucose is not greater than 70 mg/dL after initial treatment, repeat treatment. VESICANT (RED) Warning: HYPERTONIC solution. glucagon HCL injection 1 mg 1 mg, intramuscular, As needed, low blood sugar, blood glucose less than 70 mg/dL and unconscious or NPO without IV access., Starting on Tue08/07/24 at 2313, If conscious and not NPO, immediately follow with meal tray or high protein (7Grams) snack if tray not available. If NPO, initiate IV 5% Dextrose/Water at 100 mL/hr and contact prescriber for additional orders. If blood glucose is not greater than 70 mg/dL after initial treatment, repeat treatment. hydrALAZINE (APRESOLINE) injection 10 mg 10 mg, intravenous, Every 6 hours PRN, high blood pressure, Starting on Tue08/08/24 at 0453, For systolic blood pressure greater than 160 mmHg Look-alike/sound-alike medication - verify indication for use. Administer IV doses as a slow IV push; maximum rate: 5 mg/minute. 0503 (Given - Provider: Rocoi Lujan, JOLEEN)1244 (Given - Provider: Clare Puente, JOLEEN) 0326 (Given - Provider: Kendra Cadrenas, JOLEEN)1714 (Given - Provider: Viktoria Allison, JOLEEN) ipratropium-albuteroL (DUONEB) 0.5 mg-3 mg(2.5 mg base)/3 mL nebulizer solution 3 mL 3 mL, nebulization, Every 6 hours PRN, wheezing, shortness of breath, Starting on Tue08/08/24 at 0020, Implement INPATIENT/ED Bronchodilator Clinical Practice Guidelines? Yes magnesium sulfate IVPB 2000 mg/50 mL in iso-osmotic water (40 mg/mL premix) 2,000 mg, intravenous, at 25 mL/hr, Administer over 120 Minutes, As needed, Magnesium level 1.7 to 1.9 mg/dL, or Ionized Magnesium level 0.45 to 0.5 mmol/L., Starting on Tue08/08/24 at 0017, Recheck magnesium level 4 hours after infusion complete. With each magnesium result continue the replacement orders as needed. magnesium sulfate IVPB 4000 mg/100 mL in iso-osmotic water (40 mg/mL premix) 4,000 mg, intravenous, at 25 mL/hr, Administer over 240 Minutes, As needed, Magnesium level 1.6 mg/dL or less, or Ionized Magnesium level 0.44 mmol/L or less, Starting on Tue08/08/24 at 0017, Recheck magnesium level 4 hours after infusion complete. With each magnesium result continue the replacement orders as needed. melatonin (CIRCADIN) tablet 5 mg 5 mg, oral, Nightly PRN, sleep, Starting on Tue08/08/24 at 0019 potassium chloride (K-TAB,KLOR-CON) CR tablet 20-40 mEq(Linked Group 1) 20-40 mEq, oral, As needed, Potassium Supplementation, Starting on Tue08/08/24 at 0017, Progress to oral potassium replacement when patient tolerating oral intake. If dose administered, recheck potassium level 4 hours after last dose. For potassium level 3.4 to 3.8 mmol/L and GFR less than 30 mL/min or dialysis=20 mEq. For potassium level 3.1 to 3.3 mmol/L and GFR less than 30 mL/min or dialysis=30 mEq. For potassium level 3 mmol/L or less and GFR less than 30 mL/min or dialysis=40 mEq. Do not crush or chew. potassium chloride (KAYCIEL) 20 mEq/15 mL solution 20-40 mEq(Linked Group 1) 20-40 mEq, oral, As needed, Potassium Supplementation, Starting on Tue08/08/24 at 0017, Progress to oral potassium replacement when patient tolerating oral intake. If dose administered, recheck potassium level 4 hours after last dose. For potassium level 3.4 to 3.8 mmol/L and GFR less than 30 mL/min or dialysis=20 mEq. For potassium level 3.1 to 3.3 mmol/L and GFR less than 30 mL/min or dialysis=30 mEq. For potassium level 3 mmol/L or less and GFR less than 30 mL/min or dialysis=40 mEq. Must dilute before use - Mix in 3-8 ounces of water or juice before administration When administering in feeding tube, flush before and after per policy and monitor potassium levels potassium chloride IVPB 10 mEq/100 mL in water (0.1 mEq/mL premix)(Linked Group 1) 10 mEq, intravenous, at 100 mL/hr, Administer over 60 Minutes, As needed, POTASSIUM REPLACEMENT, Starting on Tue08/08/24 at 0017, IV if unable to use oral/enteral with the current dosing strategies Potassium level 3 mmol/L or less administer Potassium Chloride 40 mEq Potassium level 3.1 to 3.3 mmol/L administer Potassium Chloride 30 mEq Potassium level 3.4 to 3.8 mmol/L administer Potassium Chloride 20 mEq Use central line when applicable. Recheck potassium level 1 hour after total IVPB infusion complete, With each potassium result continue the replacement orders as needed VESICANT (YELLOW) Infuse each 10 mEq over a minimum of 1 hour. prochlorperazine (COMPAZINE) injection 5 mg 5 mg, intravenous, Every 6 hours PRN, nausea, vomiting, Starting on Tue08/10/24 at 1037, When administered via IV Push, do not exceed 5 mg per minute sodium chloride 0.9 % flush 3 mL 3 mL, intravenous, As needed, line care, before and after each intermittent use, Starting on Tue08/07/24 at 2313 sodium chloride 0.9 % flush bag 25 mL, intravenous, at 100 mL/hr, Administer over 15 Minutes, As needed, line care, line care after IVPB administration, Starting on Tue08/07/24 at 2313 Linked Groups Order Group 1: potassium chloride (K-TAB,KLOR-CON) CR tablet 20-40 mEqJump to med 20-40 mEq, oral, As needed, Potassium Supplementation, Starting on Tue08/08/24 at 0017, Progress to oral potassium replacement when patient tolerating oral intake. If dose administered, recheck potassium level 4 hours after last dose. For potassium level 3.4 to 3.8 mmol/L and GFR less than 30 mL/min or dialysis=20 mEq. For potassium level 3.1 to 3.3 mmol/L and GFR less than 30 mL/min or dialysis=30 mEq. For potassium level 3 mmol/L or less and GFR less than 30 mL/min or dialysis=40 mEq. Do not crush or chew. Or potassium chloride (KAYCIEL) 20 mEq/15 mL solution 20-40 mEqJump to med 20-40 mEq, oral, As needed, Potassium Supplementation, Starting on Tue08/08/24 at 0017, Progress to oral potassium replacement when patient tolerating oral intake. If dose administered, recheck potassium level 4 hours after last dose. For potassium level 3.4 to 3.8 mmol/L and GFR less than 30 mL/min or dialysis=20 mEq. For potassium level 3.1 to 3.3 mmol/L and GFR less than 30 mL/min or dialysis=30 mEq. For potassium level 3 mmol/L or less and GFR less than 30 mL/min or dialysis=40 mEq. Must dilute before use - Mix in 3-8 ounces of water or juice before administration When administering in feeding tube, flush before and after per policy and monitor potassium levels Or potassium chloride IVPB 10 mEq/100 mL in water (0.1 mEq/mL premix)Jump to med 10 mEq, intravenous, at 100 mL/hr, Administer over 60 Minutes, As needed, POTASSIUM REPLACEMENT, Starting on Tue08/08/24 at 0017, IV if unable to use oral/enteral with the current dosing strategies Potassium level 3 mmol/L or less administer Potassium Chloride 40 mEq Potassium level 3.1 to 3.3 mmol/L administer Potassium Chloride 30 mEq Potassium level 3.4 to 3.8 mmol/L administer Potassium Chloride 20 mEq Use central line when applicable. Recheck potassium level 1 hour after total IVPB infusion complete, With each potassium result continue the replacement orders as needed VESICANT (YELLOW) Infuse each 10 mEq over a minimum of 1 hour. Dialysis Access Sites (unrec ognized section and content) Type Status Location Placement Date Removal Da te Hemodialysis Fistula/Graft Left Upper arm Active Left Upper Arm - Anterior FOR RECORDS PERTAINING TO PATIENTS WHO ARE OR HAVE BEEN ENROLLED IN A CHEMICAL DEPENDENCY/SUBSTANCEABUSE PROGRAM, SOME INFORMATION MAY BE OMITTED. This clinical summary was aggregated from multiple sources. Caution should be exercised in using it in the provision of clinical care. This summary normalizes information from multiple sources, and as a consequence, information in this document may materially change the coding, format and clinical context of patient data. In addition, data may be omitted in some cases. CLINICAL DECISIONS SHOULD BE BASED ON THE PRIMARY CLINICAL RECORDS. [facility]. provides no warranty or guarantee of the accuracy or completeness of information in this document.
[2025-01-21 05:56] LABS: Hematocrit 29.6 % (36.0-48.0); Hemoglobin 9.3 g/dL (12.0-16.0); Mean Corpuscular HGB Conc 31.4 g/dL (29.9-35.2); Mean Corpuscular Hemoglobin 34.2 pg (26.7-34.0); Mean Corpuscular Volume 108.8 fL (81.0-99.0); Platelet Count 162 10^3/uL (150-450); Red Blood Count 2.72 10^6/uL (4.20-5.40); White Blood Count 11.0 10^3/uL (4.0-11.0)
== END 2025-01-21 05:41 | disposition home or self-care (01) ==
LOC: LAB 05:40
PROVIDERS: PCP Family Medicine; Visit Provider Student in an Organized Health Care Education/Training Program
DX: N18.9 Chronic kidney disease, unspecified (principal)
CPT/HCPCS: 36415; 85027